=== PATIENT | male | born 1965 ===

== ENCOUNTER 2018-10-11 19:40 | Inpatient (IN) | payer MEDICAID, OTHER ==
[2018-10-11 19:44] VITALS: BMI 20.9
[2018-10-11 19:55] VITALS: O2SAT 100
[2018-10-11] MEDS ORDERED: Oxycodone/Acetaminophen 5/325 mg Tab PO STA (20:11)
--- NOTE | 2018-10-11 20:11 | ED PDOC ---
Arrival/HPI - General Chief Complaint: Psychiatric Evaluation Historian: Patient - History of Present Illness Narrative History of Present Illness (Text): 10/11/18 20:07 53 y/o male, pmh including htn/hld/dm/stroke, lt. side paralysis, nkda, c/o feeling depress since he had a stroke 07/2018. Pt. stated that he has chronic lt. shoulder pain from the previous injury, on and off for months. Pt has been feeling very depress with suicidal ideation for months since the stroke, no homocidal ideation, no auditory or visual hallucination, no other medical or psychological complaints. Past Medical History - Provider Review Nursing Documentation Reviewed: Yes - Infectious Disease Hx of Infectious Diseases: None - Cardiac Hx Atrial Fibrillation: No - Pulmonary Hx Respiratory Disorders: Yes (SMOKES PPD) Hx Pneumonia: Yes (2006) - Neurological HX Cerebrovascular Accident: Yes (LEFT SIDED WEAKNESS,FACIAL DROOP 07-31-18) - HEENT Hx HEENT Disorder: No (METAL SHRAPNEL REMOVED FROM EYE) - Renal Hx Renal Disorder: No - Endocrine/Metabolic Hx Diabetes Mellitus Type 2: Yes - Hematological/Oncological Hx Blood Disorders: No - Integumentary Hx Dermatological Disorder: No - Musculoskeletal/Rheumatological Hx Musculoskeletal Disorders: No Hx Falls: Yes (TODAY 07-31-18) Hx Fractures: Yes (RIB FX,LEFT WRIST FX-JOB RELATED) - Gastrointestinal Hx Gastrointestinal Disorders: No - Genitourinary/Gynecological Hx Genitourinary Disorders: No - Psychiatric Hx Psychophysiologic Disorder: No Hx Substance Use: No - Anesthesia Hx Anesthesia: No Family/Social History - Physician Review Nursing Documentation Reviewed: Yes Family/Social History: Unknown Family HX Smoking Status: Current Some Days Smoker Hx Alcohol Use: No Hx Substance Use: No Allergies/Home Meds Allergies/Adverse Reactions: Allergies No Known Allergies Allergy (Verified 10/12/18 00:32) Review of Systems - Review of Systems Constitutional: absent: Fatigue, Fevers Eyes: absent: Vision Changes ENT: absent: Hearing Changes Respiratory: absent: SOB, Cough Cardiovascular: absent: Chest Pain Gastrointestinal: absent: Abdominal Pain, Nausea, Vomiting Musculoskeletal: absent: Arthralgias, Back Pain Skin: absent: Rash, Pruritis Psychiatric: Depression, Suicidal Ideation. absent: Anxiety Physical Exam Vital Signs Reviewed: Yes Vital Signs Temp Pulse Resp BP Pulse Ox 10/11/18 19:54 98.1 F 75 18 138/80 100 Temperature: Afebrile Blood Pressure: Normal Pulse: Regular Respiratory Rate: Normal Appearance: Positive for: Well-Appearing, Non-Toxic, Comfortable Pain Distress: Moderate Mental Status: Positive for: Alert and Oriented X 3 - Systems Exam Head: Present: Atraumatic, Normocephalic Pupils: Present: PERRL Extroacular Muscles: Present: EOMI Conjunctiva: Present: Normal Mouth: Present: Moist Mucous Membranes Neck: Present: Normal Range of Motion Respiratory/Chest: Present: Clear to Auscultation, Good Air Exchange. No: Respiratory Distress, Accessory Muscle Use Cardiovascular: Present: Regular Rate and Rhythm, Normal S1, S2. No: Murmurs Abdomen: No: Tenderness, Distention, Peritoneal Signs Back: Present: Normal Inspection Upper Extremity: Present: Normal Inspection, Other (Lt. shoulder: no deformity, mild +ttp on the lt. anterior shoulder joint, no swelling, limited ROM due to the lt. paralysis from previous stroke, sensation intact, motor 5/5, +radial pulse, capillary refill < 2 seconds, neurovascular intact. ). No: Cyanosis, Edema Lower Extremity: Present: Normal Inspection. No: Edema Neurological: Present: GCS=15, CN II-XII Intact, Speech Normal, Memory Normal, Other (Lt. side paralysis. ) Skin: Present: Warm, Dry, Normal Color. No: Rashes Psychiatric: Present: Alert, Oriented x 3, Normal Insight, Normal Concentration, Depressed Mood, Suicidal Ideation Medical Decision Making ED Course and Treatment: 10/11/18 20:14 -Labs -ekg -xrays -percocet -one on one -Observe and reassess 10/11/18 21:36 -EKG: NSR @ 62 BPM, no ST elevation or depression, no T wave inversion. -Chest xray: ER wet read: no active disease -lt. shoulder xray: ER wet read: no fracture or dislocation. -Labs show no acute findings, hypgelycemia 200s -alcohol/salicylate/acetaminophen: within romal limit -UA show no UTI -UDS show no drug abuse -Pt. feels well, pain controlled, -PES paged -Pt. is medically clear for psychiatric evaluation. 10/11/18 22:09 -Pt. is evaluated by the PES, evaluated the patient and recommend admission for the patient. - RAD Interpretation Radiology Orders: 10/11/18 20:03 CHEST PORTABLE [RAD] Stat -Chest xray: no active pulmonary disease -lt. shoulder xray: no fracture or dislocation Experimental Mechanic Electrical: Radiologist - EKG Interpretation EKG Interpretation (Text): 10/11/18 20:44 NSR @ 62 BPM, no ST elevation or depression, no T wave inversion. Interpreted by ED Physician: Yes Type: 12 lead EKG - PA / HOME HEALTH SPECIALIST / Resident Statement MD/DO has reviewed & agrees with the documentation as recorded. Disposition/Present on Arrival - Present on Arrival Any Indicators Present on Arrival: No History of DVT/PE: No History of Uncontrolled Diabetes: No Urinary Catheter: No History of Decub. Ulcer: No History Surgical Site Infection Following: None - Disposition Have Diagnosis and Disposition been Completed?: Yes Diagnosis: Depression, Suicidal ideation Disposition: HOSPITALIZED Disposition Time: 21:37 Patient Plan: Admission Patient Problems: Current Active Problems Problem Status Onset Depression Acute Suicidal ideation Acute Condition: STABLE
[2018-10-11 20:24] LABS: URINE BILIRUBIN NEGATIVE (NEGATIVE); URINE BLOOD NEGATIVE (NEGATIVE); URINE GLUCOSE (UA) 500 mg/dL (NEGATIVE); URINE LEUKOCYTE ESTERASE NEGATIVE Leu/uL (NEGATIVE); URINE PROTEIN NEGATIVE mg/dL (<30 mg/dL); URINE UROBILINOGEN 0.2 E.U./dL (<1 E.U./dL)
[2018-10-11 20:25] LABS: URINE APPEARANCE CLEAR (CLEAR); URINE COLOR YELLOW (YELLOW)
[2018-10-11 20:34] LABS: BASO # 0.04 K/mm3 (0.0-2.0); BASO % 0.4 % (0.0-3.0); EOS # 0.2 (0.0-0.7); EOS % 2.1 % (1.5-5.0); GRAN # 6.22 (1.4-6.5); GRAN % 58.2 % (50.0-68.0); HEMOGLOBIN 12.6 g/dL (14.0-18.0); LYMPH # 3.5 (1.2-3.4); LYMPH % 32.2 % (22.0-35.0); MEAN CELL VOLUME 83.5 fl (80.0-105.0); MEAN CORPUSCULAR HGB CONC 32.4 g/dl (31.0-37.0); MEAN PLATELET VOLUME 9.7 fl (7.0-11.0); MONO # 0.8 (0.1-0.6); MONO % 7.1 % (1.0-6.0); RBC 4.66 10^6/uL (3.5-6.1); RED CELL DISTRIBUTION WIDTH 15.7 % (11.5-14.5); WHITE BLOOD COUNT 10.7 10^3/uL (4.5-11.0)
[2018-10-11 20:45] LABS: ACETAMINOPHEN < 10.0 ug/ml (10.0-20.0); SALICYLATE < 1 mg/dL (2.0-20.0)
[2018-10-11 20:46] LABS: ALB/GLOB RATIO 1.4 (1.1-1.8); ALBUMIN 4.3 g/dL (3.0-4.8); ALT/SGPT 43 U/L (7-56); AST/SGOT 49 U/L (17-59); BLOOD UREA NITROGEN 18 mg/dL (7-21); CALCIUM 9.9 mg/dL (8.4-10.5); GFR NON-AFRICAN AMERICAN > 60
[2018-10-11 20:52] LABS: BARBITURATES, UR NEGATIVE (NEGATIVE); BENZODIAZEPINES, UR NEGATIVE (NEGATIVE); OPIATES, UR NEGATIVE (NEGATIVE); PHENCYCLIDINE, UR NEGATIVE (NEGATIVE)
[2018-10-12] MEDS ORDERED: Magnesium Hydroxide Susp 30 ml UD PO PRN (00:50)
[2018-10-12] MEDS ORDERED: Alum-Mag Hydrox-Simethicone Susp (30 mL) PO PRN (00:50)
--- NOTE | 2018-10-12 01:32 | PCM.BM ---
<Aknita Ramos - Last Filed: 10/12/18 01:28> Treatment Plan Problems - Problems identified on initial assessmt High risk suicide Date Initiated: 10/12/18 Time Initiated: :29 Assessment reference: NA Status: Active ineffective coping Date Initiated: 10/12/18 Time Initiated: 01:29 Assessment reference: NA Status: Active Hopelessness/Helplessness Date Initiated: 10/12/18 Time Initiated: 01:30 Assessment reference: NA Status: Active Activity intolerence Date Initiated: 10/12/18 Time Initiated: 01:30 Assessment reference: NA Status: Active self care deficit Date Initiated: 10/12/18 Time Initiated: 01:31 Assessment reference: NA Status: Active Treatment assets and liabiliti Patient Assests: cooperative, educated, motivated, cognitively intact Patient Liabilities: physical pain, medical problems - Milieu Protocol Maintain good personal hygiene: daily Encourage regular showers, daily Remind patient to perform daily oral care, daily Assist patient to perform ADL's Maintain personal safety: daily Educate patient to report safety concerns to sta ff, daily Monitor environment for contraband/sharps Medication safety: Monitor for expected outcome, potential side effects: daily, Assess barriers to learning: daily, Assess readiness for medication education: daily Family Contact Family involvement: Family/SO is involved Family contact: Patient agrees to contact Discharge/Continuing Care - Education Needs Education Needs: Patient Medication, Patient Diagnosis/Disease Process, Patient Coping Skills, Patient Placement options, Patient Activities of Daily Living, Patient Pain, Patient Nutrition, Patient Uses of Medical Equipment, Patient Health Practices/Safety, Patient Personal Hygiene/Grooming, Patient Aftercare Safety Plan - Discharge Discharge Criteria: Tolerates medication w/o severe side effects, Free of Suicidal thoughts, Normal sleep pattern, Ability to care for self Discharge to:: Home <Savanah Galarza - Last Filed: 10/12/18 15:48> - Diagnosis (1) MDD (major depressive disorder) Status: Acute Interventions: 10/12/18 15:48 Psychoeducation Psychopharmacology/adjustment of medications as needed/ monitoring possible side effects Evaluate pt on daily basis Compliance with medications and follow up appointments Suicide and homicide risk assessment and prevention Relapse prevention Reduction of symptoms Improve functional status Family involvement As outpatient: cognitive behavioral therapy Medical follow-up Physical therapy follow-up Possible rehab <Emma Linn Y - Last Filed: 10/13/18 16:09> Family Contact Family involvement: Family/SO is involved Family contact: Patient agrees to contact Family contact name: Yara Alba(girlfriend) Family contacted how many times per week?: 2
[2018-10-12] MEDS: Pantoprazole 40 mg EC Tab PO SCH (06:44)
[2018-10-12 07:00] LABS: GLUCOSE,FASTING 254 mg/dL (65-110); HDL CHOLESTEROL 35 mg/dL (29-60)
[2018-10-12 07:13] LABS: LDL CHOLESTEROL 58 mg/dL (0-129)
--- NOTE | 2018-10-12 08:42 | RAD ---
Date of service: 10/11/2018 PROCEDURE: CHEST RADIOGRAPH, 1 VIEW HISTORY: medical clearance COMPARISON: 08/03/2018. FINDINGS: LUNGS: The lungs are well inflated and clear. PLEURA: No pneumothorax or pleural effusion. CARDIOVASCULAR: The heart is normal in size. No aortic atherosclerotic calcifications present. OSSEOUS STRUCTURES: Within normal limits for the patient's age. VISUALIZED UPPER ABDOMEN: Normal. OTHER FINDINGS: None. IMPRESSION: No active pulmonary disease.
[2018-10-12] MEDS: Valproic Acid 250 mg/5 ml UD Cup PO SCH ×2 (09:08→17:55)
[2018-10-12] MEDS: Enoxaparin 30 mg Syringe SC SCH (09:09)
--- NOTE | 2018-10-12 09:20 | RAD ---
Date of service: 10/11/2018 PROCEDURE: Radiographs of the left shoulder HISTORY: lt. shoulder pain, chronic COMPARISON: No prior. FINDINGS: BONES: Bone alignment and mineralization are normal. There is no acute displaced fracture or bone destruction. JOINTS: There is mild degenerative osteoarthrosis in the glenohumeral and acromioclavicular joints SOFT TISSUES: Normal. OTHER FINDINGS: None. IMPRESSION: No acute displaced fracture or dislocation.
--- NOTE | 2018-10-12 14:19 | CP.PCM.CON ---
<KeshawnTanya floreslui - Last Filed: 10/13/18 06:57> History of Present Illness - History of Present Illness History of Present Illness: Quintin Hearn, PGY1 Medicine Consult Note This is a 53 year old male with PMH of HTN, HLD, DM and CVA in 07/2018 with residual left sided weakness presenting to the hospital for depression and suicidal ideations. Medicine has been consulted for hypertension and diabetes. Per chart review, patient takes norvasc 5mg, metoprolol 12.5mg BID and lisinopril 10mg for HTN. He takes glipizide 10mg BID and levemir 10 units HS for DM. He states he is compliant with his medications but is unable to recall the medications names at this time upon questioning. He is unable to move the left upper extremity from the stroke and has minimal movement of the left lower extre mity. He denies CP, SOB, fevers, headaches, nausea, vomiting, abdominal pain, diarrhea, constipation and swelling. 12 point ROS noted here, otherwise unremarkable. PMH: HTN, HLD, DM and CVA in 07/2018 with residual left sided weakness Meds: as per DEC SH: denies drinking and drug use, smokes cigarettes infrequently Sx: bladder surgery 2 years ago All: NKDA FH: denies Past Patient History - Infectious Disease Hx of Infectious Diseases: None - Past Social History Smoking Status: Current Some Days Smoker - CARDIAC Hx Atrial Fibrillation: No Hx Hypertension: Yes - PULMONARY Hx Respiratory Disorders: Yes (SMOKES PPD) Hx Pneumonia: Yes (2006) - NEUROLOGICAL HX Cerebrovascular Accident: Yes (LEFT SIDED WEAKNESS,FACIAL DROOP 07-31-18) - HEENT Hx HEENT Problems: No (METAL SHRAPNEL REMOVED FROM EYE) - RENAL Hx Chronic Kidney Disease: No - ENDOCRINE/METABOLIC Hx Diabetes Mellitus Type 2: Yes - HEMATOLOGICAL/ONCOLOGICAL Hx Blood Disorders: No - INTEGUMENTARY Hx Dermatological Problems: No - MUSCULOSKELETAL/RHEUMATOLOGICAL Hx Musculoskeletal Disorders: No Hx Falls: Yes (TODAY 07-31-18) Hx Fractures: Yes (RIB FX,LEFT WRIST FX-JOB RELATED) - GASTROINTESTINAL Hx Gastrointestinal Disorders: No - GENITOURINARY/GYNECOLOGICAL Hx Genitourinary Disorders: No - PSYCHIATRIC Hx Substance Use: No - SURGICAL HISTORY Hx Surgeries: Yes (BLADDER SX, METAL SHRAPNEL REMOVED FROM EYE) - ANESTHESIA Hx Anesthesia: No Meds Allergies/Adverse Reactions: Allergies Allergy/AdvReac Type Severity Reaction Status Date / Time No Known Allergies Allergy Verified 10/12/18 00:32 - Medications Medications: Current Medications Acetaminophen (Tylenol 325mg Tab) 650 mg PO Q6H PRN PRN Reason: Pain, moderate (4-7) Last Admin: 10/12/18 09:25 Dose: 650 mg Al Hydrox/Mg Hydrox/Simethicone (Maalox Plus 30 Ml) 30 ml PO DAILY PRN PRN Reason: Upset Stomach Amlodipine Besylate (Norvasc) 5 mg PO DAILY [facility] Last Admin: 10/12/18 09:08 Dose: 5 mg Aspirin (Ecotrin) 81 mg PO DAILY [facility] Last Admin: 10/12/18 09:04 Dose: 81 mg Atorvastatin Calcium (Lipitor) 40 mg PO DIN [facility] Clopidogrel Bisulfate (Plavix) 75 mg PO DAILY [facility] Last Admin: 10/12/18 09:04 Dose: 75 mg Enoxaparin Sodium (Lovenox) 30 mg SC DAILY [facility]; Protocol Last Admin: 10/12/18 09:09 Dose: 30 mg Glipizide (Glucotrol) 10 mg PO 0730,1630 [facility] Last Admin: 10/12/18 09:09 Dose: 10 mg Insulin Detemir (Levemir) 10 unit SC [facility] Lisinopril (Zestril) 10 mg PO DAILY [facility] Last Admin: 10/12/18 09:08 Dose: 10 mg Magnesium Hydroxide (Milk Of Magnesia) 30 ml PO DAILY PRN PRN Reason: Constipation Metoprolol Tartrate (Lopressor) 12.5 mg PO BID [facility] Last Admin: 10/12/18 09:04 Dose: 12.5 mg Pantoprazole Sodium (Protonix Ec Tab) 40 mg PO 0600 [facility] Last Admin: 10/12/18 06:44 Dose: 40 mg Valproate Sodium (Depakene Oral Soln) 250 mg PO BID [facility] Last Admin: 10/12/18 09:08 Dose: 250 mg Physical Exam - Constitutional Appears: No Acute Distress - Head Exam Head Exam: ATRAUMATIC, NORMAL INSPECTION - Eye Exam Eye Exam: EOMI Pupil Exam: PERRL - ENT Exam ENT Exam: Mucous Membranes Moist - Respiratory Exam Respiratory Exam: Clear to Auscultation Bilateral. absent: Accessory Muscle Use, Wheezes, Respiratory Distress - Cardiovascular Exam Cardiovascular Exam: REGULAR RHYTHM, +S1, +S2 - GI/Abdominal Exam GI & Abdominal Exam: Normal Bowel Sounds, Soft. absent: Firm, Guarding, Tenderness - Extremities Exam Extremities exam: Positive for: pedal pulses present. Negative for: calf tenderness Additional comments: LLE: 3/5 muscle strength. LUE: 0/5 muscle strength RLE and RUE 5/5 muscle strength. - Back Exam Back exam: NORMAL INSPECTION - Neurological Exam Neurological exam: Alert, Oriented x3 - Skin Skin Exam: Normal Color, Warm Results - Vital Signs Recent Vital Signs: Last Vital Signs Temp 97.8 F 10/12/18 07:26 Pulse 87 10/12/18 09:08 Resp 20 10/12/18 07:26 BP 109/66 10/12/18 09:08 Pulse Ox 100 10/11/18 23:17 - Labs Result Diagrams: 10/11/18 20:28 10/11/18 20:28 Labs: Laboratory Results - last 24 hr 10/11/18 10/11/18 10/11/18 20:19 20:19 20:28 WBC RBC Hgb Hct MCV MCH MCHC RDW Plt Count MPV Gran % Lymph % (Auto) Henry % (Auto) Eos % (Auto) Baso % (Auto) Gran # Lymph # (Auto) Henry # (Auto) Eos # (Auto) Baso # (Auto) Sodium Potassium Chloride Carbon Dioxide Anion Gap BUN Creatinine Est GFR ( Amer) Est GFR (Non-Af Amer) POC Glucose (mg/dL) Random Glucose Fasting Glucose Calcium Total Bilirubin AST ALT Alkaline Phosphatase Total Protein Albumin Globulin Albumin/Globulin Ratio Triglycerides Cholesterol LDL Cholesterol Direct HDL Cholesterol TSH 3rd Generation Urine Color Yellow Urine Appearance Clear Urine pH 6.0 Ur Specific Sherman >= 1.030 Urine Protein Negative Urine Glucose (UA) 500 H Urine Ketones Negative Urine Blood Negative Urine Nitrate Negative Urine Bilirubin Negative Urine Urobilinogen 0.2 Ur Leukocyte Esterase Negative Salicylates < 1 L Urine Opiates Screen Negative Urine Methadone Screen Negative Acetaminophen < 10.0 L Ur Barbiturates Screen Negative Ur Phencyclidine Scrn Negative Ur Amphetamines Screen Negative U Benzodiazepines Scrn Negative U Oth Cocaine Metabols Negative U Cannabinoids Screen Negative Alcohol, Quantitative 10/11/18 10/11/18 10/11/18 20:28 20:28 20:28 WBC 10.7 RBC 4.66 Hgb 12.6 L Hct 38.9 L MCV 83.5 MCH 27.0 MCHC 32.4 RDW 15.7 H Plt Count 284 MPV 9.7 Gran % 58.2 Lymph % (Auto) 32.2 Henry % (Auto) 7.1 H Eos % (Auto) 2.1 Baso % (Auto) 0.4 Gran # 6.22 Lymph # (Auto) 3.5 H Henry # (Auto) 0.8 H Eos # (Auto) 0.2 Baso # (Auto) 0.04 Sodium 138 Potassium 3.9 Chloride 102 Carbon Dioxide 25 Anion Gap 15 BUN 18 Creatinine 0.6 L Est GFR ( Amer) > 60 Est GFR (Non-Af Amer) > 60 POC Glucose (mg/dL) Random Glucose 233 H Fasting Glucose Calcium 9.9 Total Bilirubin 0.5 AST 49 ALT 43 Alkaline Phosphatase 76 Total Protein 7.4 Albumin 4.3 Globulin 3.0 Albumin/Globulin Ratio 1.4 Triglycerides Cholesterol LDL Cholesterol Direct HDL Cholesterol TSH 3rd Generation Urine Color Urine Appearance Urine pH Ur Specific Sherman Urine Protein Urine Glucose (UA) Urine Ketones Urine Blood Urine Nitrate Urine Bilirubin Urine Urobilinogen Ur Leukocyte Esterase Salicylates Urine Opiates Screen Urine Methadone Screen Acetaminophen Ur Barbiturates Screen Ur Phencyclidine Scrn Ur Amphetamines Screen U Benzodiazepines Scrn U Oth Cocaine Metabols U Cannabinoids Screen Alcohol, Quantitative < 10 10/12/18 10/12/18 10/12/18 01:06 06:15 06:15 WBC RBC Hgb Hct MCV MCH MCHC RDW Plt Count MPV Gran % Lymph % (Auto) Henry % (Auto) Eos % (Auto) Baso % (Auto) Gran # Lymph # (Auto) Henry # (Auto) Eos # (Auto) Baso # (Auto) Sodium Potassium Chloride Carbon Dioxide Anion Gap BUN Creatinine Est GFR ( Amer) Est GFR (Non-Af Amer) POC Glucose (mg/dL) 232 H Random Glucose Fasting Glucose 254 H Calcium Total Bilirubin AST ALT Alkaline Phosphatase Total Protein Albumin Globulin Albumin/Globulin Ratio Triglycerides 154 Cholesterol 132 LDL Cholesterol Direct 58 HDL Cholesterol 35 TSH 3rd Generation 3.33 Urine Color Urine Appearance Urine pH Ur Specific Sherman Urine Protein Urine Glucose (UA) Urine Ketones Urine Blood Urine Nitrate Urine Bilirubin Urine Urobilinogen Ur Leukocyte Esterase Salicylates Urine Opiates Screen Urine Methadone Screen Acetaminophen Ur Barbiturates Screen Ur Phencyclidine Scrn Ur Amphetamines Screen U Benzodiazepines Scrn U Oth Cocaine Metabols U Cannabinoids Screen Alcohol, Quantitative 10/12/18 07:19 WBC RBC Hgb Hct MCV MCH MCHC RDW Plt Count MPV Gran % Lymph % (Auto) Henry % (Auto) Eos % (Auto) Baso % (Auto) Gran # Lymph # (Auto) Henry # (Auto) Eos # (Auto) Baso # (Auto) Sodium Potassium Chloride Carbon Dioxide Anion Gap BUN Creatinine Est GFR ( Amer) Est GFR (Non-Af Amer) POC Glucose (mg/dL) 235 H Random Glucose Fasting Glucose Calcium Total Bilirubin AST ALT Alkaline Phosphatase Total Protein Albumin Globulin Albumin/Globulin Ratio Triglycerides Cholesterol LDL Cholesterol Direct HDL Cholesterol TSH 3rd Generation Urine Color Urine Appearance Urine pH Ur Specific Sherman Urine Protein Urine Glucose (UA) Urine Ketones Urine Blood Urine Nitrate Urine Bilirubin Urine Urobilinogen Ur Leukocyte Esterase Salicylates Urine Opiates Screen Urine Methadone Screen Acetaminophen Ur Barbiturates Screen Ur Phencyclidine Scrn Ur Amphetamines Screen U Benzodiazepines Scrn U Oth Cocaine Metabols U Cannabinoids Screen Alcohol, Quantitative Assessment & Plan - Assessment and Plan (Free Text) Assessment: This is a 53 year old male with PMH of HTN, HLD, DM and CVA in 07/2018 with residual left sided weakness presenting to the hospital for depression and suicidal ideations. Medicine has been consulted for hypertension and diabetes. Plan: Hx of DM -continue glipizide 10mg BID -continue levemir 10mg HS -will consider increasing levemir to 15mg HS if glucose continues to trend high -previous A1c 11.9% Hx of HTN -blood pressure currently controlled -continue lopressor 12.5mg BID, lisinopril 10mg and norvasc 5mg Hx of CVA -continue ASA 81, plavis 75mg, lipitor 40mg We will sign off the case at this time. Please reconsult as needed. Thank you for the consultation. Patient seen and case discussed with attending, Dr. Santana <Sam Santana - Last Filed: 10/17/18 17:17> Meds - Medications Medications: Current Medications Acetaminophen (Tylenol 325mg Tab) 650 mg PO Q6H PRN PRN Reason: Pain, moderate (4-7) Last Admin: 01/11/19 17:21 Dose: 650 mg Al Hydrox/Mg Hydrox/Simethicone (Maalox Plus 30 Ml) 30 ml PO DAILY PRN PRN Reason: Upset Stomach Amitriptyline HCl (Elavil) 50 mg PO HS [facility] Last Admin: 10/16/18 22:11 Dose: 50 mg Amlodipine Besylate (Norvasc) 5 mg PO DAILY [facility] Last Admin: 10/17/18 08:39 Dose: 5 mg Aspirin (Ecotrin) 81 mg PO DAILY [facility] Last Admin: 10/17/18 08:39 Dose: 81 mg Atorvastatin Calcium (Lipitor) 40 mg PO DIN [facility] Last Admin: 10/17/18 16:32 Dose: 40 mg Clopidogrel Bisulfate (Plavix) 75 mg PO DAILY [facility] Last Admin: 10/17/18 08:39 Dose: 75 mg Enoxaparin Sodium (Lovenox) 30 mg SC DAILY [facility]; Protocol Last Admin: 10/17/18 08:39 Dose: 30 mg Glipizide (Glucotrol) 10 mg PO 0730,1630 [facility] Last Admin: 10/17/18 16:32 Dose: 10 mg Insulin Detemir (Levemir) 10 unit SC [facility] Last Admin: 10/16/18 22:16 Dose: 10 units Insulin Human Regular (Humulin R Med) 0 units SC [facility]; Protocol Last Admin: 10/17/18 16:34 Dose: 3 unit Lisinopril (Zestril) 10 mg PO DAILY [facility] Last Admin: 10/17/18 08:38 Dose: 10 mg Magnesium Hydroxide (Milk Of Magnesia) 30 ml PO DAILY PRN PRN Reason: Constipation Metoprolol Tartrate (Lopressor) 12.5 mg PO BID [facility] Last Admin: 10/17/18 16:32 Dose: 12.5 mg Pantoprazole Sodium (Protonix Ec Tab) 40 mg PO 0600 [facility] Last Admin: 10/17/18 06:05 Dose: 40 mg Valproate Sodium (Depakene Oral Soln) 250 mg PO BID [facility] Last Admin: 10/17/18 16:32 Dose: 250 mg Results - Vital Signs Recent Vital Signs: Last Vital Signs Temp 98.0 F 10/17/18 07:22 Pulse 89 10/17/18 08:39 Resp 20 10/17/18 07:22 BP 107/69 10/17/18 08:39 Pulse Ox 100 10/11/18 23:17 - Labs Result Diagrams: 10/11/18 20:28 10/11/18 20:28 Labs: Laboratory Results - last 24 hr 10/16/18 10/17/18 10/17/18 21:48 08:07 11:11 POC Glucose (mg/dL) 236 H 136 H 249 H 10/17/18 15:33 POC Glucose (mg/dL) 234 H Attending/Attestation - Attestation I have personally seen and examined this patient.: Yes I have fully participated in the care of the patient.: Yes I have reviewed all pertinent clinical information: Yes Notes (Text): 10/17/18 17:17 Medical record note made by the resident after discussion with my direction and input after the patient was personally seen and examined by me. I have reviewed the chart and agree that the record accurately reflects by personal performance of the history, physical exam, data review, and medical decision-making, in the course for the patient. I have also personally directed the plan of care.
--- NOTE | 2018-10-12 15:48 | PCM.PSYCH ---
Initial Psychiatric Evaluation - Initial Psychiatric Evaluation Type of Admission: Voluntary Legal Status: Capacity (pt has a capacity to sign consent for treatment) Chief Complaint (in patient's own words): "I am very depressed, I wanted to the end of my life, I had a plan to shoot myself, I do not have any access to guns though" Patient's Reaction to Hospitalization: pt was admitted for evaluation of depression, possible suicidal ideation with the plan to shot himself. see ED notes for more detailed information. History of Present Illness and Precipitating Events: Bindu the patient is a 53-year-old male, recent stroke in July 2018, patient has paralysis of the left side of his body, patient is wheelchair-bound, patient was brought in by his girlfriend after patient was verbalizing thoughts of killing himself by gunshot. Obviously patient required further evaluation and stabilization and medications initiation and titration. Patient was seen and examined today at the treatment team meeting, patient presented with poor personal hygiene, poor ADLs, ambulates with a wheelchair. Notes reviewed, discussed with treatment team, emergency room as well as PES notes reviewed. Patient reported after a stroke she was feeling "very depressed and traumatized", patient reported that she went to [facility] rehab but "I was kicked out from there because of my insurance", patient reported that he is feeling depressed, hopeless, helpless, worthless, guilt, patient reported for past week she was feeling suicidal, hopeless, yesterday sara watson shared his thoughts with his girlfriend and she brought patient to the hospital. Patient reported that he was traumatized by his stroke, patient has flashbacks, nightmares and reliving of the situation. Patient denied being abused, denied physical/emotional/sexual abuse. Patient denies using drugs, denies smoking, denied drinking alcohol, patient reported that he smoked prior to the stroke. Patient reported hearing his mother's voice, patient reported that this voice is "calming me", denied any command type hallucinations, denied seeing things, denied paranoid ideations patient does not appear to be psychotic. As per nursing staff patient has episodes of being disrespectful, very angry, irritable, and ramires, at the same time patient does not have any aggression or agitation no psychotic symptoms. Patient stated to RN that he was going to ask a friend to lend him his gun so he can shoot himself. Patient was educated about treatment plan, patient agreed to participate. Medical history: Stroke July 2018, with residual left-sided paralysis, history of hyperlipidemia, diabetes, hypertension. Past psychiatric history: Denied Family history: Patient father killed himself by gunshot at age of 35, patient is not sure if his father had history of mental illness. Social history: Patient lives with his girlfriend, has one child. 10/11/18 20:28 10/11/18 20:28 Lab Results 10/12/18 07:19: POC Glucose (mg/dL) 235 H 10/12/18 06:15: TSH 3rd Generation 3.33 10/12/18 06:15: Fasting Glucose 254 H, Triglycerides 154, Cholesterol 132, LDL Cholesterol Direct 58, HDL Cholesterol 35 10/12/18 01:06: POC Glucose (mg/dL) 232 H 10/11/18 20:28: WBC 10.7, RBC 4.66, Hgb 12.6 L, Hct 38.9 L, MCV 83.5, MCH 27.0, MCHC 32.4, RDW 15.7 H, Plt Count 284, MPV 9.7, Gran % 58.2, Lymph % (Auto) 32.2, [place] % (Auto) 7.1 H, Eos % (Auto) 2.1, Baso % (Auto) 0.4, Gran # 6.22, Lymph # (Auto) 3.5 H, [place] # (Auto) 0.8 H, Eos # (Auto) 0.2, Baso # (Auto) 0.04 10/11/18 20:28: Alcohol, Quantitative < 10 10/11/18 20:28: Sodium 138, Potassium 3.9, Chloride 102, Carbon Dioxide 25, Anion Gap 15, BUN 18, Creatinine 0.6 L, Est GFR ( Amer) > 60, Est GFR (Non-Af Amer) > 60, Random Glucose 233 H, Calcium 9.9, Total Bilirubin 0.5, AST 49, ALT 43, Alkaline Phosphatase 76, Total Protein 7.4, Albumin 4.3, Globulin 3.0, Albumin/Globulin Ratio 1.4 10/11/18 20:28: Salicylates < 1 L, Acetaminophen < 10.0 L 10/11/18 20:19: Urine Color Yellow, Urine Appearance Clear, Urine pH 6.0, Ur Specific [place] >= 1.030, Urine Protein Negative, Urine Glucose (UA) 500 H, Urine Ketones Negative, Urine Blood Negative, Urine Nitrate Negative, Urine Bilirubin Negative, Urine Urobilinogen 0.2, Ur Leukocyte Esterase Negative 10/11/18 20:19: Urine Opiates Screen Negative, Urine Methadone Screen Negative, Ur Barbiturates Screen Negative, Ur Phencyclidine Scrn Negative, Ur Amphetamines Screen Negative, U Benzodiazepines Scrn Negative, U Oth Cocaine Metabols Negative, U Cannabinoids Screen Negative Vital Signs Temp Pulse Pulse Resp BP Pulse Ox 10/12/18 09:08 87 109/66 10/12/18 09:04 84 109/66 10/12/18 07:26 97.8 F 84 20 109/66 10/12/18 01:36 65 18 10/11/18 23:17 80 18 123/56 L 100 10/11/18 21:14 61 18 133/72 100 10/11/18 19:54 98.1 F 75 18 138/80 100 The patient failed the outpatient lower level of care: Yes Current Medications: Active Medications Generic Name Dose Route Start Last Admin Trade Name Freq PRN Reason Stop Dose Admin Acetaminophen 650 mg 10/12/18 00:50 10/12/18 02:47 Tylenol 325mg Tab PO 650 mg Q6H PRN Administration Pain, moderate (4-7) Al Hydrox/Mg Hydrox/Simethicone 30 ml 10/12/18 00:50 Maalox Plus 30 Ml PO DAILY PRN Upset Stomach Amlodipine Besylate 5 mg 10/12/18 08:00 Norvasc PO DAILY [facility] Aspirin 81 mg 10/12/18 08:00 Ecotrin PO DAILY [facility] Atorvastatin Calcium 40 mg 10/12/18 17:00 Lipitor PO DIN [facility] Clopidogrel Bisulfate 75 mg 10/12/18 08:00 Plavix PO DAILY [facility] Enoxaparin Sodium 30 mg 10/12/18 08:00 Lovenox SC DAILY [facility] Protocol Glipizide 10 mg 10/12/18 07:30 Glucotrol PO 0730,1630 [facility] Insulin Detemir 10 unit 10/12/18 22:00 Levemir SC HS [facility] Lisinopril 10 mg 10/12/18 08:00 Zestril PO DAILY [facility] Magnesium Hydroxide 30 ml 10/12/18 00:50 Milk Of Magnesia PO DAILY PRN Constipation Metoprolol Tartrate 12.5 mg 10/12/18 08:00 Lopressor PO BID [facility] Pantoprazole Sodium 40 mg 10/12/18 06:00 10/12/18 06:44 Protonix Ec Tab PO 40 mg 0600 [facility]IP Administration Valproate Sodium 250 mg 10/12/18 08:00 Depakene Oral Soln PO BID SANDIP Present on Admission - Present on Admission Any Indicators Present on Admission: No Review of Systems - Review of Systems Systems not reviewed;Unavailable: Acuity of Condition - Constitutional Constitutional: As Per HPI - EENT Eyes: As Per HPI Ears: As Per HPI Nose/Mouth/Throat: As Per HPI - Cardiovascular Cardiovascular: As Per HPI - Respiratory Respiratory: As Per HPI - Gastrointestinal Gastrointestinal: As Per HPI - Genitourinary Genitourinary: As Per HPI - Reproductive: Male Reproductive:Male: As Per HPI - Musculoskeletal Musculoskeletal: As Per HPI - Integumentary Integumentary: As Per HPI - Neurological Neurological: As Per HPI - Psychiatric Psychiatric: As Per HPI - Endocrine Endocrine: As Per HPI - Hematologic/Lymphatic Hematologic: As Per HPI Past Patient History - Past Psychiatric History Previous Treatment History: None Prior Professional Help: See HPI Prior Psychiatric Treatment: See HPI At what hospital: See HPI Duration: See HPI Nature of Treatment: See HPI Explanation of prior treatment: See HPI - PSYCHIATRIC Hx Psychophysiologic Disorder: No Hx Substance Use: No - Infectious Disease Hx of Infectious Diseases: None - CARDIAC Hx Atrial Fibrillation: No Hx Hypertension: Yes - PULMONARY Hx Respiratory Disorders: Yes (SMOKES PPD) Hx Pneumonia: Yes (2006) - NEUROLOGICAL HX Cerebrovascular Accident: Yes (LEFT SIDED WEAKNESS,FACIAL DROOP 07-31-18) - HEENT Hx HEENT Problems: No (METAL SHRAPNEL REMOVED FROM EYE) - RENAL Hx Chronic Kidney Disease: No - ENDOCRINE/METABOLIC Hx Diabetes Mellitus Type 2: Yes - HEMATOLOGICAL/ONCOLOGICAL Hx Blood Disorders: No - INTEGUMENTARY Hx Dermatological Problems: No - MUSCULOSKELETAL/RHEUMATOLOGICAL Hx Musculoskeletal Disorders: No Hx Falls: Yes (TODAY 07-31-18) Hx Fractures: Yes (RIB FX,LEFT WRIST FX-JOB RELATED) - GASTROINTESTINAL Hx Gastrointestinal Disorders: No - GENITOURINARY/GYNECOLOGICAL Hx Genitourinary Disorders: No - SURGICAL HISTORY Hx Surgeries: Yes (BLADDER SX, METAL SHRAPNEL REMOVED FROM EYE) - ANESTHESIA Hx Anesthesia: No - Medical/Surgical History Reviewed & confirmed: by fl Meds Allergies/Adverse Reactions: Allergies Allergy/AdvReac Type Severity Reaction Status Date / Time No Known Allergies Allergy Verified 10/12/18 00:32 Mental Status Examination - Personal Presentation Personal Presentation: Looks older than stated age - Affect Affect: Flat - Motor Activity Motor Activity: Psychomotor Retardation - Reliability in Providing Information Reliability in Providing Information: Fair - Speech Speech: Organized - Mood Mood: Depressed, Anxious - Formal Thought Process Formal Thought Process: Hallucinations (Questionable voices) - Hallucinations/Delusions Hallucinations: Auditory - Obsessions/Compulsions Obsessions: None Compulsions: None - Cognitive Functions Orientation: Person, Place, Situation, Time Sensorium: Alert Abstract Thinking: [place] Estimate of Intelligence: Average Judgement: Intact, as evidence by: Insight regarding need for hospitalization - Risk Risk: Suicidal, Diminished functioning - Strength & Assets Inventory Strength & Assets Inventory: Family support, Cooperative - Limitations Limitations: Other (Multiple medical issues, recent stroke, suicidal ideation) Psychiatric Physical Exam - Physical Exam Reviewed and confirmed: Emergency Department Physical Exam Results - Vital Signs Recent Vital Signs: Last Vital Signs Temp 97.8 F 10/12/18 07:26 Pulse 84 10/12/18 07:26 Resp 20 10/12/18 07:26 BP 109/66 10/12/18 07:26 Pulse Ox 100 10/11/18 23:17 - Labs Result Diagrams: 10/11/18 20:28 10/11/18 20:28 Labs: Laboratory Results - last 24 hr 10/11/18 10/11/18 10/11/18 20:19 20:19 20:28 WBC RBC Hgb Hct MCV MCH MCHC RDW Plt Count MPV Gran % Lymph % (Auto) [place] % (Auto) Eos % (Auto) Baso % (Auto) Gran # Lymph # (Auto) [place] # (Auto) Eos # (Auto) Baso # (Auto) Sodium Potassium Chloride Carbon Dioxide Anion Gap BUN Creatinine Est GFR ( Amer) Est GFR (Non-Af Amer) POC Glucose (mg/dL) Random Glucose Fasting Glucose Calcium Total Bilirubin AST ALT Alkaline Phosphatase Total Protein Albumin Globulin Albumin/Globulin Ratio Triglycerides Cholesterol LDL Cholesterol Direct HDL Cholesterol TSH 3rd Generation Urine Color Yellow Urine Appearance Clear Urine pH 6.0 Ur Specific [place] >= 1.030 Urine Protein Negative Urine Glucose (UA) 500 H Urine Ketones Negative Urine Blood Negative Urine Nitrate Negative Urine Bilirubin Negative Urine Urobilinogen 0.2 Ur Leukocyte Esterase Negative Salicylates < 1 L Urine Opiates Screen Negative Urine Methadone Screen Negative Acetaminophen < 10.0 L Ur Barbiturates Screen Negative Ur Phencyclidine Scrn Negative Ur Amphetamines Screen Negative U Benzodiazepines Scrn Negative U Oth Cocaine Metabols Negative U Cannabinoids Screen Negative Alcohol, Quantitative 10/11/18 10/11/18 10/11/18 20:28 20:28 20:28 WBC 10.7 RBC 4.66 Hgb 12.6 L Hct 38.9 L MCV 83.5 MCH 27.0 MCHC 32.4 RDW 15.7 H Plt Count 284 MPV 9.7 Gran % 58.2 Lymph % (Auto) 32.2 [place] % (Auto) 7.1 H Eos % (Auto) 2.1 Baso % (Auto) 0.4 Gran # 6.22 Lymph # (Auto) 3.5 H [place] # (Auto) 0.8 H Eos # (Auto) 0.2 Baso # (Auto) 0.04 Sodium 138 Potassium 3.9 Chloride 102 Carbon Dioxide 25 Anion Gap 15 BUN 18 Creatinine 0.6 L Est GFR ( Amer) > 60 Est GFR (Non-Af Amer) > 60 POC Glucose (mg/dL) Random Glucose 233 H Fasting Glucose Calcium 9.9 Total Bilirubin 0.5 AST 49 ALT 43 Alkaline Phosphatase 76 Total Protein 7.4 Albumin 4.3 Globulin 3.0 Albumin/Globulin Ratio 1.4 Triglycerides Cholesterol LDL Cholesterol Direct HDL Cholesterol TSH 3rd Generation Urine Color Urine Appearance Urine pH Ur Specific [place] Urine Protein Urine Glucose (UA) Urine Ketones Urine Blood Urine Nitrate Urine Bilirubin Urine Urobilinogen Ur Leukocyte Esterase Salicylates Urine Opiates Screen Urine Methadone Screen Acetaminophen Ur Barbiturates Screen Ur Phencyclidine Scrn Ur Amphetamines Screen U Benzodiazepines Scrn U Oth Cocaine Metabols U Cannabinoids Screen Alcohol, Quantitative < 10 10/12/18 10/12/18 10/12/18 01:06 06:15 06:15 WBC RBC Hgb Hct MCV MCH MCHC RDW Plt Count MPV Gran % Lymph % (Auto) [place] % (Auto) Eos % (Auto) Baso % (Auto) Gran # Lymph # (Auto) [place] # (Auto) Eos # (Auto) Baso # (Auto) Sodium Potassium Chloride Carbon Dioxide Anion Gap BUN Creatinine Est GFR ( Amer) Est GFR (Non-Af Amer) POC Glucose (mg/dL) 232 H Random Glucose Fasting Glucose 254 H Calcium Total Bilirubin AST ALT Alkaline Phosphatase Total Protein Albumin Globulin Albumin/Globulin Ratio Triglycerides 154 Cholesterol 132 LDL Cholesterol Direct 58 HDL Cholesterol 35 TSH 3rd Generation 3.33 Urine Color Urine Appearance Urine pH Ur Specific [place] Urine Protein Urine Glucose (UA) Urine Ketones Urine Blood Urine Nitrate Urine Bilirubin Urine Urobilinogen Ur Leukocyte Esterase Salicylates Urine Opiates Screen Urine Methadone Screen Acetaminophen Ur Barbiturates Screen Ur Phencyclidine Scrn Ur Amphetamines Screen U Benzodiazepines Scrn U Oth Cocaine Metabols U Cannabinoids Screen Alcohol, Quantitative 10/12/18 07:19 WBC RBC Hgb Hct MCV MCH MCHC RDW Plt Count MPV Gran % Lymph % (Auto) [place] % (Auto) Eos % (Auto) Baso % (Auto) Gran # Lymph # (Auto) [place] # (Auto) Eos # (Auto) Baso # (Auto) Sodium Potassium Chloride Carbon Dioxide Anion Gap BUN Creatinine Est GFR ( Amer) Est GFR (Non-Af Amer) POC Glucose (mg/dL) 235 H Random Glucose Fasting Glucose Calcium Total Bilirubin AST ALT Alkaline Phosphatase Total Protein Albumin Globulin Albumin/Globulin Ratio Triglycerides Cholesterol LDL Cholesterol Direct HDL Cholesterol TSH 3rd Generation Urine Color Urine Appearance Urine pH Ur Specific [place] Urine Protein Urine Glucose (UA) Urine Ketones Urine Blood Urine Nitrate Urine Bilirubin Urine Urobilinogen Ur Leukocyte Esterase Salicylates Urine Opiates Screen Urine Methadone Screen Acetaminophen Ur Barbiturates Screen Ur Phencyclidine Scrn Ur Amphetamines Screen U Benzodiazepines Scrn U Oth Cocaine Metabols U Cannabinoids Screen Alcohol, Quantitative - EKG Data EKG Interpreted by: ER Physician DSM Plan - DSM 5 DSM 5 Diagnosis: Rule out major depressive disorder Rule out mood disorder due to general medical condition - Recommended/Plan of Treatment Treatment Recommendations and Plan of Treatment: Milieu/structure/supportive therapy Medical consult appreciated, see medical team note for more detailed info Physical therapy consult appreciated likely patient needs to go to the gym here in [facility] and subacute rehab after consultation for discharge plan and social issues Med management Amitriptyline was started for depression Depakote was started 250 mg twice a day for mood stabilization As needed medications Family involvement Follow up on labs Will monitor closely Pt was educated about risk/benefits and alternatives of medications, coping strategies (safety plan, suicide prevention), relapse prevention, importance of follow up with psychiatrist and therapist, stay away from drugs/alcohol/smoking Projected ELOS: 7 days Prognosis: Guarded Discharge Plan and Discharge Criteria: Pt will be not depressed or manic, will be more hopeful, will be not psychotic or anxious, will be not having thoughts of harming self or others, will be tolerating medications well, will not have major side effects, will be able to function, will not pose threat to self or others. - Tobacco Cessation Tobacco Use Status for the last 30 days: Non User Tobacco Use Treatment Practical Counseling Provided: No Tobacco Use Treatment FDA-Approved Cessation Medication Provided: No - Alcohol or Substance Abuse Does the patient have an Alcohol or Substance Abuse Disorder: No Initial Psych Certification - Initial Certification I certify that the inpatient psychiatric facility admission was medically necessary for either: Treatment which could reasonbly be expected to improve pt 's condition I estimate of hospitalization is necessary for proper treatment of the patient: 7 Unit of Time: Days My plans for post-hospital care for this patient are: Subacute rehab plus psychiatrist follow-up plus therapist follow-up
--- NOTE | 2018-10-12 20:14 | CARD ---
APPROVED REPORT Date of service: 10/11/2018 EKG Measurement Heart [id number] <Conclusion> Normal sinus rhythm Normal ECG
[2018-10-12] MEDS: Insulin Detemir 100 units/ml Vial (Levemir) SC SCH (21:42)
[2018-10-13] MEDS: Pantoprazole 40 mg EC Tab PO SCH (06:39)
[2018-10-13] MEDS: Valproic Acid 250 mg/5 ml UD Cup PO SCH ×2 (08:41→17:26)
[2018-10-13] MEDS: Enoxaparin 30 mg Syringe SC SCH (08:44)
--- NOTE | 2018-10-13 14:24 | PCM.PYCHPN ---
Psychiatric Progress Note - Psychiatric Progress Note Patient seen today, length of contact: 30 minutes Patient Chief Complaint: "I constantly thinking of suicide" Problems Identified/Issues Discussed: Suicide/ homicide prevention, past psychiatric h/o, current psychiatric symptoms, medical problems, risk/benefits and alternatives of medications, medications compliance, coping strategies, substance abuse h/o, relapse prevention, importance of follow up with psychiatrist and therapist, discharge plan. Medical Problems: Multiple medical issues please see medical team notes for more detailed information Diagnostic Results: 10/11/18 20:28 10/11/18 20:28 Lab Results 10/12/18 20:55: POC Glucose (mg/dL) 202 H 10/12/18 16:28: POC Glucose (mg/dL) 103 10/12/18 11:18: POC Glucose (mg/dL) 227 H 10/12/18 07:19: POC Glucose (mg/dL) 235 H 10/12/18 06:15: RPR Nonreactive 10/12/18 06:15: TSH 3rd Generation 3.33 10/12/18 06:15: Fasting Glucose 254 H, Triglycerides 154, Cholesterol 132, LDL Cholesterol Direct 58, HDL Cholesterol 35 10/12/18 01:06: POC Glucose (mg/dL) 232 H 10/11/18 20:28: WBC 10.7, RBC 4.66, Hgb 12.6 L, Hct 38.9 L, MCV 83.5, MCH 27.0, MCHC 32.4, RDW 15.7 H, Plt Count 284, MPV 9.7, Gran % 58.2, Lymph % (Auto) 32.2, [place] % (Auto) 7.1 H, Eos % (Auto) 2.1, Baso % (Auto) 0.4, Gran # 6.22, Lymph # (Auto) 3.5 H, [place] # (Auto) 0.8 H, Eos # (Auto) 0.2, Baso # (Auto) 0.04 10/11/18 20:28: Alcohol, Quantitative < 10 10/11/18 20:28: Sodium 138, Potassium 3.9, Chloride 102, Carbon Dioxide 25, Anion Gap 15, BUN 18, Creatinine 0.6 L, Est GFR ( Amer) > 60, Est GFR (Non-Af Amer) > 60, Random Glucose 233 H, Calcium 9.9, Total Bilirubin 0.5, AST 49, ALT 43, Alkaline Phosphatase 76, Total Protein 7.4, Albumin 4.3, Globulin 3.0, Albumin/Globulin Ratio 1.4 10/11/18 20:28: Salicylates < 1 L, Acetaminophen < 10.0 L 10/11/18 20:19: Urine Color Yellow, Urine Appearance Clear, Urine pH 6.0, Ur Specific [place] >= 1.030, Urine Protein Negative, Urine Glucose (UA) 500 H, Urine Ketones Negative, Urine Blood Negative, Urine Nitrate Negative, Urine Bilirubin Negative, Urine Urobilinogen 0.2, Ur Leukocyte Esterase Negative 10/11/18 20:19: Urine Opiates Screen Negative, Urine Methadone Screen Negative, Ur Barbiturates Screen Negative, Ur Phencyclidine Scrn Negative, Ur Amphetamines Screen Negative, U Benzodiazepines Scrn Negative, U Oth Cocaine Metabols Negative, U Cannabinoids Screen Negative Vital Signs Temp Pulse Pulse Resp BP Pulse Ox 10/13/18 08:43 63 120/71 10/13/18 08:42 63 120/71 10/13/18 07:08 98.0 F 63 20 120/71 10/12/18 17:55 60 107/70 10/12/18 16:00 60 107/70 10/12/18 09:08 87 109/66 10/12/18 09:04 84 109/66 10/12/18 07:26 97.8 F 84 20 109/66 10/12/18 01:36 65 18 10/11/18 23:17 80 18 123/56 L 100 10/11/18 21:14 61 18 133/72 100 10/11/18 19:54 98.1 F 75 18 138/80 100 DSM 5 Symptoms Update: Short the patient is a 53-year-old male, recent stroke in July 2018, patient has paralysis of the left side of his body, patient is wheelchair-bound, patient was brought in by his girlfriend after patient was verbalizing thoughts of killing himself by gunshot. Obviously patient required further evaluation and stabilization and medications initiation and titration. Patient was seen and examined today at the treatment team meeting, patient presented with poor personal hygiene, poor ADLs, ambulates with a wheelchair. Notes reviewed, discussed with treatment team, emergency room as well as PES notes reviewed. Patient presented to be depressed, disengaged, patient reported that "I constantly think of suicide", patient reported that she does she slept well last night, still reported to feel hopeless and helpless. As per staff patient preferred to be in his room, patient is disengaged, no agitation, no aggression. 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 So far patient tolerates medications well, no side effects observed or reported, aims 0, no EPS. Impression: DSM 5 Diagnosis: Rule out major depressive disorder Rule out mood disorder due to general medical condition Medication Change: Yes Medical Record Reviewed: Yes Consults ordered or reviewed: Medical consult appreciated Physical therapy consult appreciated Mental Status Examination - Cognitive Function Orientation: Person, Place, Situation, Time Memory: Intact Attention: Poor Concentration: Poor Association: WNL Fund of Knowledge: Poor - Mood Mood: Depressed, Anxious - Affect Affect: Flat - Formal Thought Process Formal Thought Process: Hallucinations (Questionable voices) - Suicidal Ideation Suicidal Ideation: Yes Plan: "I constantly feel suicidal, "patient denied any intent or plan of harming himself or others - Homicidal Ideation Homicidal Ideation: No Goal/Treatment Plan - Goal/Treatment Plan Need for Continued Stay: Remain at risks for inpatient hospitalization, Severe depression anxiety, Discharge may exacerbated symptoms, Severe functional impairment Progress Toward Problem(s) and Goals/Treatment Plan: Milieu/structure/supportive therapy Medical consult appreciated, see medical team note for more detailed info Physical therapy consult appreciated likely patient needs to go to the gym here in [facility] and subacute rehab after consultation for discharge plan and social issues Med management Amitriptyline was started for depression Depakote was started 250 mg twice a day for mood stabilization As needed medications Family involvement Follow up on labs Will monitor closely Pt was educated about risk/benefits and alternatives of medications, coping stra tegies (safety plan, suicide prevention), relapse prevention, importance of follow up with psychiatrist and therapist, stay away from drugs/alcohol/smoking Estimated Date of D/C: 10/20/18
[2018-10-13] MEDS: Insulin Detemir 100 units/ml Vial (Levemir) SC SCH (22:03)
[2018-10-14] MEDS: Valproic Acid 250 mg/5 ml UD Cup PO SCH ×2 (10:00→17:56)
[2018-10-14] MEDS: Enoxaparin 30 mg Syringe SC SCH (10:03)
[2018-10-14] MEDS: Pantoprazole 40 mg EC Tab PO SCH (10:04)
--- NOTE | 2018-10-14 14:45 | PCM.PYCHPN ---
Psychiatric Progress Note - Psychiatric Progress Note Patient seen today, length of contact: 30 minutes Patient Chief Complaint: "I constantly thinking of suicide" Problems Identified/Issues Discussed: Suicide/ homicide prevention, past psychiatric h/o, current psychiatric symptoms, medical problems, risk/benefits and alternatives of medications, medications compliance, coping strategies, substance abuse h/o, relapse prevention, importance of follow up with psychiatrist and therapist, discharge plan. Medical Problems: Multiple medical issues please see medical team notes for more detailed information Diagnostic Results: 10/11/18 20:28 10/11/18 20:28 Lab Results 10/12/18 20:55: POC Glucose (mg/dL) 202 H 10/12/18 16:28: POC Glucose (mg/dL) 103 10/12/18 11:18: POC Glucose (mg/dL) 227 H 10/12/18 07:19: POC Glucose (mg/dL) 235 H 10/12/18 06:15: RPR Nonreactive 10/12/18 06:15: TSH 3rd Generation 3.33 10/12/18 06:15: Fasting Glucose 254 H, Triglycerides 154, Cholesterol 132, LDL Cholesterol Direct 58, HDL Cholesterol 35 10/12/18 01:06: POC Glucose (mg/dL) 232 H 10/11/18 20:28: WBC 10.7, RBC 4.66, Hgb 12.6 L, Hct 38.9 L, MCV 83.5, MCH 27.0, MCHC 32.4, RDW 15.7 H, Plt Count 284, MPV 9.7, Gran % 58.2, Lymph % (Auto) 32.2, [place] % (Auto) 7.1 H, Eos % (Auto) 2.1, Baso % (Auto) 0.4, Gran # 6.22, Lymph # (Auto) 3.5 H, [place] # (Auto) 0.8 H, Eos # (Auto) 0.2, Baso # (Auto) 0.04 10/11/18 20:28: Alcohol, Quantitative < 10 10/11/18 20:28: Sodium 138, Potassium 3.9, Chloride 102, Carbon Dioxide 25, Anion Gap 15, BUN 18, Creatinine 0.6 L, Est GFR ( Amer) > 60, Est GFR (Non-Af Amer) > 60, Random Glucose 233 H, Calcium 9.9, Total Bilirubin 0.5, AST 49, ALT 43, Alkaline Phosphatase 76, Total Protein 7.4, Albumin 4.3, Globulin 3.0, Albumin/Globulin Ratio 1.4 10/11/18 20:28: Salicylates < 1 L, Acetaminophen < 10.0 L 10/11/18 20:19: Urine Color Yellow, Urine Appearance Clear, Urine pH 6.0, Ur Specific [place] >= 1.030, Urine Protein Negative, Urine Glucose (UA) 500 H, Urine Ketones Negative, Urine Blood Negative, Urine Nitrate Negative, Urine Bilirubin Negative, Urine Urobilinogen 0.2, Ur Leukocyte Esterase Negative 10/11/18 20:19: Urine Opiates Screen Negative, Urine Methadone Screen Negative, Ur Barbiturates Screen Negative, Ur Phencyclidine Scrn Negative, Ur Amphetamines Screen Negative, U Benzodiazepines Scrn Negative, U Oth Cocaine Metabols Negative, U Cannabinoids Screen Negative Vital Signs Temp Pulse Pulse Resp BP Pulse Ox 10/13/18 08:43 63 120/71 10/13/18 08:42 63 120/71 10/13/18 07:08 98.0 F 63 20 120/71 10/12/18 17:55 60 107/70 10/12/18 16:00 60 107/70 10/12/18 09:08 87 109/66 10/12/18 09:04 84 109/66 10/12/18 07:26 97.8 F 84 20 109/66 10/12/18 01:36 65 18 10/11/18 23:17 80 18 123/56 L 100 10/11/18 21:14 61 18 133/72 100 10/11/18 19:54 98.1 F 75 18 138/80 100 Temp Pulse Resp BP Pulse Ox 98.7 F 76 20 109/69 100 10/14/18 07:26 10/14/18 10:07 10/14/18 07:26 10/14/18 10:07 10/11/18 23:17 DSM 5 Symptoms Update: Short the patient is a 53-year-old male, recent stroke in July 2018, patient has paralysis of the left side of his body, patient is wheelchair-bound, patient was brought in by his girlfriend after patient was verbalizing thoughts of killing himself by gunshot. Obviously patient required further evaluation and stabilization and medications initiation and titration. Patient was seen and examined today at the area, patient presented with poor personal hygiene, poor ADLs, ambulates with a wheelchair. Notes reviewed discussed with staff. Patient said that he still feels "the same" patient appears to be depressed, disengaged, patient reported that "I constantly think of suicide", patient reported that he did sleep last night, still reported to feel hopeless and helpless. Patient denied any psychotic symptoms. As per staff patient preferred to be in his room, patient is disengaged, no agitation, no aggression. 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 So far patient tolerates medications well, no side effects observed or reported, aims 0, no EPS. Impression: DSM 5 Diagnosis: Rule out major depressive disorder Rule out mood disorder due to general medical condition Medication Change: Yes (Elavil increased) Medical Record Reviewed: Yes Consults ordered or reviewed: Medical consult appreciated Physical therapy consult appreciated Mental Status Examination - Cognitive Function Orientation: Person, Place, Situation, Time Memory: Intact Attention: Poor Concentration: Poor Association: WNL Fund of Knowledge: Poor - Mood Mood: Depressed, Anxious - Affect Affect: Flat - Formal Thought Process Formal Thought Process: Hallucinations ("I did not hear any voices") - Suicidal Ideation Suicidal Ideation: Yes - Homicidal Ideation Homicidal Ideation: No Goal/Treatment Plan - Goal/Treatment Plan Need for Continued Stay: Remain at risks for inpatient hospitalization, Severe depression anxiety, Discharge may exacerbated symptoms, Severe functional impairment Progress Toward Problem(s) and Goals/Treatment Plan: Milieu/structure/supportive therapy Medical consult appreciated, see medical team note for more detailed info Physical therapy consult appreciated likely patient needs to go to the gym here in [facility] and subacute rehab after consultation for discharge plan and social issues Med management Amitriptyline increased to 50 mg at the nighttime Depakote was started 250 mg twice a day for mood stabilization As needed medications Family involvement Follow up on labs Will monitor closely Pt was educated about risk/benefits and alternatives of medications, coping strategies (safety plan, suicide prevention), relapse prevention, importance of follow up with psychiatrist and therapist, stay away from drugs/alcohol/smoking Estimated Date of D/C: 10/20/18
[2018-10-14] MEDS: Insulin Detemir 100 units/ml Vial (Levemir) SC SCH (21:44)
[2018-10-15] MEDS: Pantoprazole 40 mg EC Tab PO SCH (06:23)
[2018-10-15] MEDS: Valproic Acid 250 mg/5 ml UD Cup PO SCH ×2 (09:27→17:19)
[2018-10-15] MEDS: Enoxaparin 30 mg Syringe SC SCH (09:39)
[2018-10-15] MEDS ORDERED: Insulin Lispro 1 UNITS/0.01 ML SC STA (11:59)
--- NOTE | 2018-10-15 12:52 | PCM.PYCHPN ---
Psychiatric Progress Note - Psychiatric Progress Note Patient seen today, length of contact: 30 minutes Patient Chief Complaint: "I feel little better, medication what I am taking at the nighttime works well, now I have something to look forward to, I have 40 ketones at home, my girlfriend is coming and visiting me daily" Problems Identified/Issues Discussed: Suicide/ homicide prevention, past psychiatric h/o, current psychiatric symptoms, medical problems, risk/benefits and alternatives of medications, medications compliance, coping strategies, substance abuse h/o, relapse prevention, importance of follow up with psychiatrist and therapist, discharge plan. Medical Problems: Multiple medical issues please see medical team notes for more detailed information Diagnostic Results: 10/11/18 20:28 10/11/18 20:28 Lab Results 10/12/18 20:55: POC Glucose (mg/dL) 202 H 10/12/18 16:28: POC Glucose (mg/dL) 103 10/12/18 11:18: POC Glucose (mg/dL) 227 H 10/12/18 07:19: POC Glucose (mg/dL) 235 H 10/12/18 06:15: RPR Nonreactive 10/12/18 06:15: TSH 3rd Generation 3.33 10/12/18 06:15: Fasting Glucose 254 H, Triglycerides 154, Cholesterol 132, LDL Cholesterol Direct 58, HDL Cholesterol 35 10/12/18 01:06: POC Glucose (mg/dL) 232 H 10/11/18 20:28: WBC 10.7, RBC 4.66, Hgb 12.6 L, Hct 38.9 L, MCV 83.5, MCH 27.0, MCHC 32.4, RDW 15.7 H, Plt Count 284, MPV 9.7, Gran % 58.2, Lymph % (Auto) 32.2, [place] % (Auto) 7.1 H, Eos % (Auto) 2.1, Baso % (Auto) 0.4, Gran # 6.22, Lymph # (Auto) 3.5 H, [place] # (Auto) 0.8 H, Eos # (Auto) 0.2, Baso # (Auto) 0.04 10/11/18 20:28: Alcohol, Quantitative < 10 10/11/18 20:28: Sodium 138, Potassium 3.9, Chloride 102, Carbon Dioxide 25, Anion Gap 15, BUN 18, Creatinine 0.6 L, Est GFR ( Amer) > 60, Est GFR (Non-Af Amer) > 60, Random Glucose 233 H, Calcium 9.9, Total Bilirubin 0.5, AST 49, ALT 43, Alkaline Phosphatase 76, Total Protein 7.4, Albumin 4.3, Globulin 3.0, Albumin/Globulin Ratio 1.4 10/11/18 20:28: Salicylates < 1 L, Acetaminophen < 10.0 L 10/11/18 20:19: Urine Color Yellow, Urine Appearance Clear, Urine pH 6.0, Ur Specific [place] >= 1.030, Urine Protein Negative, Urine Glucose (UA) 500 H, Urine Ketones Negative, Urine Blood Negative, Urine Nitrate Negative, Urine Bilirubin Negative, Urine Urobilinogen 0.2, Ur Leukocyte Esterase Negative 10/11/18 20:19: Urine Opiates Screen Negative, Urine Methadone Screen Negative, Ur Barbiturates Screen Negative, Ur Phencyclidine Scrn Negative, Ur Amphetamines Screen Negative, U Benzodiazepines Scrn Negative, U Oth Cocaine Metabols Negative, U Cannabinoids Screen Negative Vital Signs Temp Pulse Pulse Resp BP Pulse Ox 10/13/18 08:43 63 120/71 10/13/18 08:42 63 120/71 10/13/18 07:08 98.0 F 63 20 120/71 10/12/18 17:55 60 107/70 10/12/18 16:00 60 107/70 10/12/18 09:08 87 109/66 10/12/18 09:04 84 109/66 10/12/18 07:26 97.8 F 84 20 109/66 10/12/18 01:36 65 18 10/11/18 23:17 80 18 123/56 L 100 10/11/18 21:14 61 18 133/72 100 10/11/18 19:54 98.1 F 75 18 138/80 100 Temp Pulse Resp BP Pulse Ox 98.7 F 76 20 109/69 100 10/14/18 07:26 10/14/18 10:07 10/14/18 07:26 10/14/18 10:07 10/11/18 23:17 Laboratory Results - last 24 hr 10/14/18 10/14/18 10/15/18 16:29 21:25 07:40 POC Glucose (mg/dL) 235 H 216 H 144 H DSM 5 Symptoms Update: Short the patient is a 53-year-old male, recent stroke in July 2018, patient has paralysis of the left side of his body, patient is wheelchair-bound, patient was brought in by his girlfriend after patient was verbalizing thoughts of killing himself by gunshot. Obviously patient required further evaluation and stabilization and medications initiation and titration. Patient was seen and examined today in his room with mental health worker, patient presented with poor personal hygiene, poor ADLs, ambulates with a wheelchair. Notes reviewed discussed with staff. Today was the first day when patient presented with some improvements of his symptoms, patient said that he slept well, he likes his medications, mood reported to be "feeling better", today is the first day when patient denied thoughts of harming himself, which is a treatment for the patient. Transient feeling of hopelessness, helplessness majority of the time it is related to neurological deficit status post stroke. Patient denied any psychotic symptoms. As per staff patient preferred to be in his room, patient is disengaged, no agitation, no aggression. This process description writer had a prolonged conversation with physical therapy team, patient was recommended to attend hospital's gym. So far patient tolerates medications well, no side effects observed or reported, aims 0, no EPS. Impression: DSM 5 Diagnosis: Rule out major depressive disorder Rule out mood disorder due to general medical condition Medication Change: Yes (Amitriptyline was increased October 14, 2018) Medical Record Reviewed: Yes Consults ordered or reviewed: Medical consult appreciated Physical therapy consult appreciated Mental Status Examination - Cognitive Function Orientation: Person, Place, Situation, Time Memory: Intact Attention: Poor Concentration: Poor Association: WNL Fund of Knowledge: Poor - Mood Mood: Depressed, Anxious - Affect Affect: Flat - Formal Thought Process Formal Thought Process: Hallucinations ("I did not hear any voices") - Suicidal Ideation Suicidal Ideation: Yes - Homicidal Ideation Homicidal Ideation: No Goal/Treatment Plan - Goal/Treatment Plan Need for Continued Stay: Remain at risks for inpatient hospitalization, Severe depression anxiety, Discharge may exacerbated symptoms, Severe functional impairment Progress Toward Problem(s) and Goals/Treatment Plan: Milieu/structure/supportive therapy Medical consult appreciated, see medical team note for more detailed info Physical therapy consult appreciated likely patient needs to go to the gym here in [facility] and subacute rehab after consultation for discharge plan and social issues Med management Amitriptyline increased to 50 mg at the nighttime Depakote was started 250 mg twice a day for mood stabilization As needed medications Family involvement Follow up on labs Will monitor closely Pt was educated about risk/benefits and alternatives of medications, coping strategies (safety plan, suicide prevention), relapse prevention, importance of follow up with psychiatrist and therapist, stay away from drugs/alcohol/smoking Estimated Date of D/C: 10/20/18
[2018-10-15] MEDS: Insulin Reg-MEDIUM-Coverage SC SCH ×2 (17:19→21:50)
[2018-10-15] MEDS: Insulin Detemir 100 units/ml Vial (Levemir) SC SCH (21:51)
[2018-10-16] MEDS: Pantoprazole 40 mg EC Tab PO SCH (06:30)
[2018-10-16] MEDS: Insulin Reg-MEDIUM-Coverage SC SCH ×4 (08:29→22:11)
[2018-10-16] MEDS: Enoxaparin 30 mg Syringe SC SCH ×2 (08:30→17:24)
[2018-10-16] MEDS: Valproic Acid 250 mg/5 ml UD Cup PO SCH ×2 (08:30→16:29)
--- NOTE | 2018-10-16 09:19 | PCM.PYCHPN ---
Psychiatric Progress Note - Psychiatric Progress Note Patient seen today, length of contact: 30 minutes Problems Identified/Issues Discussed: I reviewed assessment and recent notes. I met with patient at bedside. Patient is a 53-year-old male who was admitted after verbalizing thoughts to shoot himself, his depression related to immobility s/p recent stroke in July 2018. Patient continues to be depressed, has trouble finding hope because of his physical condition. He reports that he feels the same as yesterday, his affect is constricted and he seems hopeless. Patient denies any SI today (apparently yesterday was the first day he denied having thoughts of harming himself). Patient's thought process is coherent and goal directed. Alert and oriented x3. Patient reports that he has visual hallucinations of car headlights heading toward him. He also sees spiders on the an. Denies auditory hallucinations. Patient is tolerating his medications, denies any new discomfort or pain. Diagnostic Results: Rule out major depressive disorder Rule out mood disorder due to general medical condition Medication Change: No ( ) Medical Record Reviewed: Yes Mental Status Examination - Cognitive Function Orientation: Person, Place, Situation, Time Memory: Intact Attention: Poor Concentration: Poor Association: WNL Fund of Knowledge: Poor - Mood Mood: Depressed, Anxious - Affect Affect: Flat - Speech Speech: Soft - Formal Thought Process Formal Thought Process: Hallucinations ( visual hallucinations of car headlights heading toward him. He also sees spiders on the an) - Suicidal Ideation Suicidal Ideation: No - Homicidal Ideation Homicidal Ideation: No Goal/Treatment Plan - Goal/Treatment Plan Need for Continued Stay: Remain at risks for inpatient hospitalization, Severe depression anxiety, Discharge may exacerbated symptoms, Severe functional impairment Progress Toward Problem(s) and Goals/Treatment Plan: * c/w current tx and plan * Vitals reviewed and noted below: Selected Entries 10/15/18 07:18 Temperature 97.7 F Pulse Rate 63 Respiratory 20 Rate Blood Pressure 117/73 * No new weekend lab results thus far. Estimated Date of D/C: 10/20/18
[2018-10-16] MEDS: Insulin Detemir 100 units/ml Vial (Levemir) SC SCH (22:16)
[2018-10-17] MEDS: Pantoprazole 40 mg EC Tab PO SCH (06:05)
[2018-10-17] MEDS: Enoxaparin 30 mg Syringe SC SCH (08:39)
[2018-10-17] MEDS: Valproic Acid 250 mg/5 ml UD Cup PO SCH ×2 (08:39→16:32)
[2018-10-17] MEDS: Insulin Reg-MEDIUM-Coverage SC SCH ×4 (08:42→21:54)
--- NOTE | 2018-10-17 09:22 | PCM.PYCHPN ---
Psychiatric Progress Note - Psychiatric Progress Note Patient seen today, length of contact: 30 minutes Problems Identified/Issues Discussed: Patient is a 53-year-old male who was admitted after verbalizing thoughts to shoot himself, his depression related to immobility s/p recent stro ke in July 2018. I reviewed recent notes and met with patient at bedside. Patient continues to be depressed, has trouble finding hope because of his physical condition but feeling more hopeful than hopeless since admission. He reports that he feels the same as yesterday, His affect is constricted and he appears despondent. He continues to deny SI and has denied SI all weekend thus far (apparently Thursday was the first day he denied having thoughts of harming himself). Patient's thought process is coherent and goal directed. Alert and oriented x3. Patient reports that he has visual hallucinations of car headlights heading toward him. He also sees spiders on the an. He tells me that he experiences these hallucinations constantly. Patient denies auditory hallucinations. Patient is tolerating his medications, denies any new discomfort or pain and reports that he is comfortable. Staff have noted that he seems a little brighter, more reactive, observed joking around during the day yesterday. Diagnostic Results: Rule out major depressive disorder Rule out mood disorder due to general medical condition Medication Change: No ( ) Medical Record Reviewed: Yes Mental Status Examination - Cognitive Function Orientation: Person, Place, Situation, Time Memory: Intact Attention: WNL Concentration: Poor Association: WNL Fund of Knowledge: Poor - Mood Mood: Depressed (more hopeful than hopeless), Anxious - Affect Affect: Flat - Speech Speech: Soft - Formal Thought Process Formal Thought Process: Hallucinations ( visual hallucinations of car headlights heading toward him. He also sees spiders on the an) - Suicidal Ideation Suicidal Ideation: No - Homicidal Ideation Homicidal Ideation: No Goal/Treatment Plan - Goal/Treatment Plan Need for Continued Stay: Remain at risks for inpatient hospitalization, Severe depression anxiety, Discharge may exacerbated symptoms, Severe functional impairment Progress Toward Problem(s) and Goals/Treatment Plan: * c/w current tx and plan * Vitals reviewed and noted below: Selected Entries 10/16/18 10/16/18 07:00 16:29 Temperature 97.7 F Pulse Rate 71 82 Respiratory 19 Rate Blood Pressure 108/67 112/78 * No new weekend lab results thus far. Estimated Date of D/C: 10/20/18
[2018-10-17] MEDS: Insulin Detemir 100 units/ml Vial (Levemir) SC SCH (22:14)
[2018-10-18] MEDS: Pantoprazole 40 mg EC Tab PO SCH (06:52)
[2018-10-18] MEDS: Valproic Acid 250 mg/5 ml UD Cup PO SCH ×2 (08:40→17:33)
[2018-10-18] MEDS: Enoxaparin 30 mg Syringe SC SCH (08:46)
[2018-10-18] MEDS: Insulin Reg-MEDIUM-Coverage SC SCH ×4 (08:50→21:36)
--- NOTE | 2018-10-18 15:22 | PCM.PYCHPN ---
Psychiatric Progress Note - Psychiatric Progress Note Patient seen today, length of contact: 30 minutes Patient Chief Complaint: "I feel little better, medication what I am taking at the nighttime works but I still have difficulties to stay asleep".. Problems Identified/Issues Discussed: Suicide/ homicide prevention, past psychiatric h/o, current psychiatric symptoms, medical problems, risk/benefits and alternatives of medications, medications compliance, coping strategies, substance abuse h/o, relapse prevention, importance of follow up with psychiatrist and therapist, discharge plan. Medical Problems: Multiple medical issues please see medical team notes for more detailed information Diagnostic Results: 10/11/18 20:28 10/11/18 20:28 Lab Results 10/12/18 20:55: POC Glucose (mg/dL) 202 H 10/12/18 16:28: POC Glucose (mg/dL) 103 10/12/18 11:18: POC Glucose (mg/dL) 227 H 10/12/18 07:19: POC Glucose (mg/dL) 235 H 10/12/18 06:15: RPR Nonreactive 10/12/18 06:15: TSH 3rd Generation 3.33 10/12/18 06:15: Fasting Glucose 254 H, Triglycerides 154, Cholesterol 132, LDL Cholesterol Direct 58, HDL Cholesterol 35 10/12/18 01:06: POC Glucose (mg/dL) 232 H 10/11/18 20:28: WBC 10.7, RBC 4.66, Hgb 12.6 L, Hct 38.9 L, MCV 83.5, MCH 27.0, MCHC 32.4, RDW 15.7 H, Plt Count 284, MPV 9.7, Gran % 58.2, Lymph % (Auto) 32.2, [place] % (Auto) 7.1 H, Eos % (Auto) 2.1, Baso % (Auto) 0.4, Gran # 6.22, Lymph # (Auto) 3.5 H, [place] # (Auto) 0.8 H, Eos # (Auto) 0.2, Baso # (Auto) 0.04 10/11/18 20:28: Alcohol, Quantitative < 10 10/11/18 20:28: Sodium 138, Potassium 3.9, Chloride 102, Carbon Dioxide 25, Anion Gap 15, BUN 18, Creatinine 0.6 L, Est GFR ( Amer) > 60, Est GFR (Non-Af Amer) > 60, Random Glucose 233 H, Calcium 9.9, Total Bilirubin 0.5, AST 49, ALT 43, Alkaline Phosphatase 76, Total Protein 7.4, Albumin 4.3, Globulin 3.0, Albumin/Globulin Ratio 1.4 10/11/18 20:28: Salicylates < 1 L, Acetaminophen < 10.0 L 10/11/18 20:19: Urine Color Yellow, Urine Appearance Clear, Urine pH 6.0, Ur Specific [place] >= 1.030, Urine Protein Negative, Urine Glucose (UA) 500 H, Urine Ketones Negative, Urine Blood Negative, Urine Nitrate Negative, Urine Bilirubin Negative, Urine Urobilinogen 0.2, Ur Leukocyte Esterase Negative 10/11/18 20:19: Urine Opiates Screen Negative, Urine Methadone Screen Negative, Ur Barbiturates Screen Negative, Ur Phencyclidine Scrn Negative, Ur Amphetamines Screen Negative, U Benzodiazepines Scrn Negative, U Oth Cocaine Metabols Negative, U Cannabinoids Screen Negative Vital Signs Temp Pulse Pulse Resp BP Pulse Ox 10/13/18 08:43 63 120/71 10/13/18 08:42 63 120/71 10/13/18 07:08 98.0 F 63 20 120/71 10/12/18 17:55 60 107/70 10/12/18 16:00 60 107/70 10/12/18 09:08 87 109/66 10/12/18 09:04 84 109/66 10/12/18 07:26 97.8 F 84 20 109/66 10/12/18 01:36 65 18 10/11/18 23:17 80 18 123/56 L 100 10/11/18 21:14 61 18 133/72 100 10/11/18 19:54 98.1 F 75 18 138/80 100 Temp Pulse Resp BP Pulse Ox 98.7 F 76 20 109/69 100 10/14/18 07:26 10/14/18 10:07 10/14/18 07:26 10/14/18 10:07 10/11/18 23:17 Laboratory Results - last 24 hr 10/14/18 10/14/18 10/15/18 16:29 21:25 07:40 POC Glucose (mg/dL) 235 H 216 H 144 H DSM 5 Symptoms Update: Short the patient is a 53-year-old male, recent stroke in July 2018, patient has paralysis of the left side of his body, patient is wheelchair-bound, patient was brought in by his girlfriend after patient was verbalizing thoughts of killing himself by gunshot. Obviously patient required further evaluation and stabilization and medications initiation and titration. Patient was seen and examined today at the TV area, patient presented with improved personal hygiene, poor ADLs, ambulates with a wheelchair. Notes reviewed discussed with staff. pt still has suicidal ideations with the plan to shot himself with the gun, as per SW pt's friend own a gun, SW will contact pt's girlfriend, notify. pt denied intent or plan to kill self. Transient feeling of hopelessness, helplessness majority of the time it is related to neurological deficit status post stroke. Patient reported visual hallucinations to over the weekend. As per staff patient preferred to be in his room, patient is disengaged, no agitation, no aggression. This writer producer had a prolonged conversation with physical therapy team, patient was recommended to attend hospital's gym. So far patient tolerates medications well, no side effects observed or reported, aims 0, no EPS. Impression: DSM 5 Diagnosis: Rule out major depressive disorder Rule out mood disorder due to general medical condition Medication Change: Yes (nortriptillin increased ) Medical Record Reviewed: Yes Consults ordered or reviewed: Medical consult appreciated Physical therapy consult appreciated Mental Status Examination - Cognitive Function Orientation: Person, Place, Situation, Time Memory: Intact Attention: WNL Concentration: Poor Association: WNL Fund of Knowledge: Poor - Mood Mood: Depressed (more hopeful than hopeless), Anxious - Affect Affect: Flat - Speech Speech: Soft - Formal Thought Process Formal Thought Process: Hallucinations ( visual hallucinations of car headlights heading toward him. He also sees spiders on the an ) - Suicidal Ideation Suicidal Ideation: No - Homicidal Ideation Homicidal Ideation: No Goal/Treatment Plan - Goal/Treatment Plan Need for Continued Stay: Remain at risks for inpatient hospitalization, Severe depression anxiety, Discharge may exacerbated symptoms, Severe functional impairment Progress Toward Problem(s) and Goals/Treatment Plan: Milieu/structure/supportive therapy Medical consult appreciated, see medical team note for more detailed info Physical therapy consult appreciated likely patient needs to go to the gym here in [facility] and subacute rehab after consultation for discharge plan and social issues Med management Amitriptyline increased to 75 mg at the nighttime Depakote 250 mg twice a day for mood stabilization As needed medications Family involvement Follow up on labs Will monitor closely Pt was educated about risk/benefits and alternatives of medications, coping strategies (safety plan, suicide prevention), relapse prevention, importance of follow up with psychiatrist and therapist, stay away from drugs/alcohol/smoking Estimated Date of D/C: 10/22/18
[2018-10-18] MEDS: Insulin Detemir 100 units/ml Vial (Levemir) SC SCH (21:35)
[2018-10-19] MEDS: Pantoprazole 40 mg EC Tab PO SCH (06:33)
[2018-10-19] MEDS: Valproic Acid 250 mg/5 ml UD Cup PO SCH ×2 (09:03→17:34)
[2018-10-19] MEDS: Enoxaparin 30 mg Syringe SC SCH (09:04)
[2018-10-19] MEDS: Insulin Reg-MEDIUM-Coverage SC SCH ×4 (09:05→21:35)
--- NOTE | 2018-10-19 15:14 | PCM.PYCHPN ---
Psychiatric Progress Note - Psychiatric Progress Note Patient seen today, length of contact: 30 minutes Patient Chief Complaint: "I am hurting myself by sitting on this uncomfortable chair" Problems Identified/Issues Discussed: Suicide/ homicide prevention, past psychiatric h/o, current psychiatric symptoms, medical problems, risk/benefits and alternatives of medications, medications compliance, coping strategies, substance abuse h/o, relapse prevention, importance of follow up with psychiatrist and therapist, discharge plan. Medical Problems: Multiple medical issues please see medical team notes for more detailed information Diagnostic Results: 10/11/18 20:28 10/11/18 20:28 Lab Results 10/12/18 20:55: POC Glucose (mg/dL) 202 H 10/12/18 16:28: POC Glucose (mg/dL) 103 10/12/18 11:18: POC Glucose (mg/dL) 227 H 10/12/18 07:19: POC Glucose (mg/dL) 235 H 10/12/18 06:15: RPR Nonreactive 10/12/18 06:15: TSH 3rd Generation 3.33 10/12/18 06:15: Fasting Glucose 254 H, Triglycerides 154, Cholesterol 132, LDL Cholesterol Direct 58, HDL Cholesterol 35 10/12/18 01:06: POC Glucose (mg/dL) 232 H 10/11/18 20:28: WBC 10.7, RBC 4.66, Hgb 12.6 L, Hct 38.9 L, MCV 83.5, MCH 27.0, MCHC 32.4, RDW 15.7 H, Plt Count 284, MPV 9.7, Gran % 58.2, Lymph % (Auto) 32.2, [place] % (Auto) 7.1 H, Eos % (Auto) 2.1, Baso % (Auto) 0.4, Gran # 6.22, Lymph # (Auto) 3.5 H, [place] # (Auto) 0.8 H, Eos # (Auto) 0.2, Baso # (Auto) 0.04 10/11/18 20:28: Alcohol, Quantitative < 10 10/11/18 20:28: Sodium 138, Potassium 3.9, Chloride 102, Carbon Dioxide 25, Anion Gap 15, BUN 18, Creatinine 0.6 L, Est GFR ( Amer) > 60, Est GFR (Non-Af Amer) > 60, Random Glucose 233 H, Calcium 9.9, Total Bilirubin 0.5, AST 49, ALT 43, Alkaline Phosphatase 76, Total Protein 7.4, Albumin 4.3, Globulin 3 .0, Albumin/Globulin Ratio 1.4 10/11/18 20:28: Salicylates < 1 L, Acetaminophen < 10.0 L 10/11/18 20:19: Urine Color Yellow, Urine Appearance Clear, Urine pH 6.0, Ur Specific [place] >= 1.030, Urine Protein Negative, Urine Glucose (UA) 500 H, Urine Ketones Negative, Urine Blood Negative, Urine Nitrate Negative, Urine Bilirubin Negative, Urine Urobilinogen 0.2, Ur Leukocyte Esterase Negative 10/11/18 20:19: Urine Opiates Screen Negative, Urine Methadone Screen Negative, Ur Barbiturates Screen Negative, Ur Phencyclidine Scrn Negative, Ur Amphetamines Screen Negative, U Benzodiazepines Scrn Negative, U Oth Cocaine Metabols Negative, U Cannabinoids Screen Negative Vital Signs Temp Pulse Pulse Resp BP Pulse Ox 10/13/18 08:43 63 120/71 10/13/18 08:42 63 120/71 10/13/18 07:08 98.0 F 63 20 120/71 10/12/18 17:55 60 107/70 10/12/18 16:00 60 107/70 10/12/18 09:08 87 109/66 10/12/18 09:04 84 109/66 10/12/18 07:26 97.8 F 84 20 109/66 10/12/18 01:36 65 18 10/11/18 23:17 80 18 123/56 L 100 10/11/18 21:14 61 18 133/72 100 10/11/18 19:54 98.1 F 75 18 138/80 100 Temp Pulse Resp BP Pulse Ox 98.7 F 76 20 109/69 100 10/14/18 07:26 10/14/18 10:07 10/14/18 07:26 10/14/18 10:07 10/11/18 23:17 Laboratory Results - last 24 hr 10/14/18 10/14/18 10/15/18 16:29 21:25 07:40 POC Glucose (mg/dL) 235 H 216 H 144 H DSM 5 Symptoms Update: Short the patient is a 53-year-old male, recent stroke in July 2018, patient has paralysis of the left side of his body, patient is wheelchair-bound, patient was brought in by his girlfriend after patient was verbalizing thoughts of killing himself by gunshot. Obviously patient required further evaluation and stabilization and medications initiation and titration. Patient was seen and examined today at the TV area, patient presented with improved personal hygiene, poor ADLs, ambulates with a wheelchair. Notes review ed discussed with staff. Patient reported that she slept better, patient complaining of visual hallucinations "train is coming up on me". As per healthcare social worker patient's girlfriend does not want to accept patient back home, most likely patient would require skilled nursing placement. As per staff patient preferred to be in his room, patient is disengaged, at times could be abusive towards staff, cursing. 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 So far patient tolerates medications well, no side effects observed or reported, aims 0, no EPS. Impression: DSM 5 Diagnosis: Rule out major depressive disorder Rule out mood disorder due to general medical condition Medication Change: Yes (nortriptillin increased yesterday, patient does not want antipsychotic meds) Medical Record Reviewed: Yes Consults ordered or reviewed: Medical consult appreciated Physical therapy consult appreciated Mental Status Examination - Cognitive Function Orientation: Person, Place, Situation, Time Memory: Intact Attention: WNL Concentration: Poor Association: WNL Fund of Knowledge: Poor - Mood Mood: Depressed (I have no hope), Anxious - Affect Affect: Flat - Speech Speech: Soft - Formal Thought Process Formal Thought Process: Hallucinations ("Training is coming on me") - Suicidal Ideation Suicidal Ideation: No - Homicidal Ideation Homicidal Ideation: No Goal/Treatment Plan - Goal/Treatment Plan Need for Continued Stay: Remain at risks for inpatient hospitalization, Severe depression anxiety, Discharge may exacerbated symptoms, Severe functional impa irment Progress Toward Problem(s) and Goals/Treatment Plan: Milieu/structure/supportive therapy Medical consult appreciated, see medical team note for more detailed info Physical therapy consult appreciated SW consultation for discharge plan and social issues Med management Amitriptyline increased to 75 mg at the nighttime Depakote 500 mg twice a day for mood stabilization We will consider antipsychotic medication but patient refused to be on it As needed medications Family involvement Follow up on labs Will monitor closely Pt was educated about risk/benefits and alternatives of medications, coping strategies (safety plan, suicide prevention), relapse prevention, importance of follow up with psychiatrist and therapist, stay away from drugs/alcohol/smoking Estimated Date of D/C: 10/22/18
[2018-10-19] MEDS: Insulin Detemir 100 units/ml Vial (Levemir) SC SCH (21:35)
[2018-10-20] MEDS: Pantoprazole 40 mg EC Tab PO SCH (06:51)
[2018-10-20] MEDS: Insulin Reg-MEDIUM-Coverage SC SCH ×4 (09:03→21:12)
[2018-10-20] MEDS: Valproic Acid 250 mg/5 ml UD Cup PO SCH ×2 (09:10→17:07)
[2018-10-20] MEDS: Enoxaparin 30 mg Syringe SC SCH (09:10)
--- NOTE | 2018-10-20 11:55 | PCM.BM ---
<Emma Linn Y - Last Filed: 10/20/18 11:55> Treatment Plan Problems - Problems identified on initial assessmt High risk suicide Date Initiated: 10/12/18 Time Initiated: Assessment reference: NA Status: Active ineffective coping Date Initiated: 10/12/18 Time Initiated: :29 Assessment reference: NA Status: Active Hopelessness/Helplessness Date Initiated: 10/12/18 Time Initiated: :30 Assessment reference: NA Status: Active Activity intolerence Date Initiated: 10/12/18 Time Initiated: :30 Assessment reference: NA Status: Active self care deficit Date Initiated: 10/12/18 Time Initiated: :31 Assessment reference: NA Status: Active Treatment assets and liabiliti Patient Assests: cooperative, educated, motivated, cognitively intact Patient Liabilities: physical pain, medical problems - Milieu Protocol Maintain good personal hygiene: daily Encourage regular showers, daily Remind patient to perform daily oral care, daily Assist patient to perform ADL's Maintain personal safety: daily Educate patient to report safety concerns to staff, daily Monitor environment for contraband/sharps Medication safety: Monitor for expected outcome, potential side effects: daily, Assess barriers to learning: daily, Assess readiness for medication education: daily Milieu Narrative: Milieu/structure/supportive therapy Medical consult appreciated, see medical team note for more detailed info Physical therapy consult appreciated SW consultation for discharge plan and social issues Med management Amitriptyline increased to 75 mg at the nighttime Depakote 500 mg twice a day for mood stabilization We will consider antipsychotic medication but patient refused to be on it As needed medications Family involvement Follow up on labs Will monitor closely Pt was educated about risk/benefits and alternatives of medications, coping strategies (safety plan, suicide prevention), relapse prevention, importance of follow up with psychiatrist and therapist, stay away from drugs/alcohol/smoking Family Contact Family contact: Patient agrees to contact Family contact name: Yara Alba(girlfriend) Family contacted how many times per week?: 2 - Goals for Treatment Patient goals for treatment: "I want to go to rehab." Discharge/Continuing Care - Education Needs Education Needs: Patient Medication, Patient Diagnosis/Disease Process, Patient Coping Skills, Patient Placement options, Patient Activities of Daily Living, Patient Pain, Patient Nutrition, Patient Uses of Medical Equipment, Patient Health Practices/Safety, Patient Personal Hygiene/Grooming, Patient Aftercare Safety Plan - Discharge Discharge Criteria: Tolerates medication w/o severe side effects, Free of Suicidal thoughts, Normal sleep pattern, Ability to care for self Discharge to:: Home - Treatment Team Participation Patient/Family/SO Statement: Milieu/structure/supportive therapy Medical consult appreciated, see medical team note for more detailed info Physical therapy consult appreciated SW consultation for discharge plan and social issues Med management Amitriptyline increased to 75 mg at the nighttime Depakote 500 mg twice a day for mood stabilization We will consider antipsychotic medication but patient refused to be on it As needed medications Family involvement Follow up on labs Will monitor closely Pt was educated about risk/benefits and alternatives of medications, coping strategies (safety plan, suicide prevention), relapse prevention, importance of follow up with psychiatrist and therapist, stay away from drugs/alcohol/smoking Treatment Plan Review - Problem High risk suicide Time Initiated: :29 ineffective coping Time Initiated: :29 Hopelessness/Helplessness Time Initiated: 01:30 Activity intolerence Time Initiated: :30 self care deficit Time Initiated: 01:31 <Savanah Galarza - Last Filed: 10/20/18 14:43> - Diagnosis (1) MDD (major depressive disorder) Status: Acute Interventions: 10/20/18 14:42 Patient still appears to be depressed, hopeless, helpless, has some future oriented plans "to become better and physical therapy", at the same time patient has a lot of social issues such as patient girlfriend most likely will be not able to take care of him, and patient might require assisted placement. Patient denied thoughts of harming himself or others, has some improvements with his presentation. 10/20/18 14:43 Still requires further hospitalization and observation and medications adjustment
--- NOTE | 2018-10-20 14:48 | PCM.PYCHPN ---
Psychiatric Progress Note - Psychiatric Progress Note Patient seen today, length of contact: 30 minutes Patient Chief Complaint: "I am okay" Problems Identified/Issues Discussed: Suicide/ homicide prevention, past psychiatric h/o, current psychiatric symptoms, medical problems, risk/benefits and alternatives of medications, medications compliance, coping strategies, substance abuse h/o, relapse prevention, importance of follow up with psychiatrist and therapist, discharge plan. Medical Problems: Multiple medical issues please see medical team notes for more detailed information Diagnostic Results: 10/11/18 20:28 10/11/18 20:28 Lab Results 10/12/18 20:55: POC Glucose (mg/dL) 202 H 10/12/18 16:28: POC Glucose (mg/dL) 103 10/12/18 11:18: POC Glucose (mg/dL) 227 H 10/12/18 07:19: POC Glucose (mg/dL) 235 H 10/12/18 06:15: RPR Nonreactive 10/12/18 06:15: TSH 3rd Generation 3.33 10/12/18 06:15: Fasting Glucose 254 H, Triglycerides 154, Cholesterol 132, LDL Cholesterol Direct 58, HDL Cholesterol 35 10/12/18 01:06: POC Glucose (mg/dL) 232 H 10/11/18 20:28: WBC 10.7, RBC 4.66, Hgb 12.6 L, Hct 38.9 L, MCV 83.5, MCH 27.0, MCHC 32.4, RDW 15.7 H, Plt Count 284, MPV 9.7, Gran % 58.2, Lymph % (Auto) 32.2, [place] % (Auto) 7.1 H, Eos % (Auto) 2.1, Baso % (Auto) 0.4, Gran # 6.22, Lymph # (Auto) 3.5 H, [place] # (Auto) 0.8 H, Eos # (Auto) 0.2, Baso # (Auto) 0.04 10/11/18 20:28: Alcohol, Quantitative < 10 10/11/18 20:28: Sodium 138, Potassium 3.9, Chloride 102, Carbon Dioxide 25, Anion Gap 15, BUN 18, Creatinine 0.6 L, Est GFR ( Amer) > 60, Est GFR (Non-Af Amer) > 60, Random Glucose 233 H, Calcium 9.9, Total Bilirubin 0.5, AST 49, ALT 43, Alkaline Phosphatase 76, Total Protein 7.4, Albumin 4.3, Globulin 3.0, Albumin/Globulin Ratio 1.4 10/11/18 20:28: Salicylates < 1 L, Acetaminophen < 10.0 L 10/11/18 20:19: Urine Color Yellow, Urine Appearance Clear, Urine pH 6.0, Ur Specific [place] >= 1.030, Urine Protein Negative, Urine Glucose (UA) 500 H, Urine Ketones Negative, Urine Blood Negative, Urine Nitrate Negative, Urine Bilirubin Negative, Urine Urobilinogen 0.2, Ur Leukocyte Esterase Negative 10/11/18 20:19: Urine Opiates Screen Negative, Urine Methadone Screen Negative, Ur Barbiturates Screen Negative, Ur Phencyclidine Scrn Negative, Ur Amphetamines Screen Negative, U Benzodiazepines Scrn Negative, U Oth Cocaine Metabols Negative, U Cannabinoids Screen Negative Vital Signs Temp Pulse Pulse Resp BP Pulse Ox 10/13/18 08:43 63 120/71 10/13/18 08:42 63 120/71 10/13/18 07:08 98.0 F 63 20 120/71 10/12/18 17:55 60 107/70 10/12/18 16:00 60 107/70 10/12/18 09:08 87 109/66 10/12/18 09:04 84 109/66 10/12/18 07:26 97.8 F 84 20 109/66 10/12/18 01:36 65 18 10/11/18 23:17 80 18 123/56 L 100 10/11/18 21:14 61 18 133/72 100 10/11/18 19:54 98.1 F 75 18 138/80 100 Temp Pulse Resp BP Pulse Ox 98.7 F 76 20 109/69 100 10/14/18 07:26 10/14/18 10:07 10/14/18 07:26 10/14/18 10:07 10/11/18 23:17 Laboratory Results - last 24 hr 10/14/18 10/14/18 10/15/18 16:29 21:25 07:40 POC Glucose (mg/dL) 235 H 216 H 144 H DSM 5 Symptoms Update: Short the patient is a 53-year-old male, recent stroke in July 2018, patient has paralysis of the left side of his body, patient is wheelchair-bound, patient was brought in by his girlfriend after patient was verbalizing thoughts of killing himself by gunshot. Obviously patient required further evaluation and stabilization and medications initiation and titration. Patient was seen and examined today at the treatment team meeting, patient presented with some improvements of his hygiene, patient still appears to be depressed, was tearful about his previous life and history of working for 12 hours a day, patient feels sad that he cannot provide for his family right now. As per the patient drove a friend she cannot take care of him, most likely patient will require [place] [facility] placement, will schedule conference phone call with the his girlfriend to come up with final disposition plan. Patient indicated she is against him taking things daily as needed she aching does not transient visual hallucinations, off note yesterday patient had impression that cars and trains are going towards him. Patient denied thoughts of killing himself or others today. As per staff patient preferred to be in his room, patient is disengaged, at times could be abusive towards staff, cursing. 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 So far patient tolerates medications well, no side effects observed or reported, aims 0, no EPS. Impression: DSM 5 Diagnosis: Rule out major depressive disorder Rule out mood disorder due to general medical condition Medication Change: Yes (nortriptillin increased yesterday, patient does not want antipsychotic meds) Medical Record Reviewed: Yes Mental Status Examination - Cognitive Function Orientation: Person, Place, Situation, Time Memory: Intact Attention: WNL Concentration: Poor Association: WNL Fund of Knowledge: Poor - Mood Mood: Depressed (I have no hope), Anxious - Affect Affect: Flat - Speech Speech: Soft - Formal Thought Process Formal Thought Process: Hallucinations ("Trains and cars are coming on me") - Suicidal Ideation Suicidal Ideation: No - Homicidal Ideation Homicidal Ideation: No Goal/Treatment Plan - Goal/Treatment Plan Need for Continued Stay: Remain at risks for inpatient hospitalization, Severe depression anxiety, Discharge may exacerbated symptoms, Severe functional impairment Progress Toward Problem(s) and Goals/Treatment Plan: Milieu/structure/supportive therapy Medical consult appreciated, see medical team note for more detailed info Physical therapy consult appreciated SW consultation for discharge plan and social issues Med management Amitriptyline increased to 75 mg at the nighttime October 19, 2018 Depakote 500 mg twice a day for mood stabilization We will consider antipsychotic medication but patient refused to be on it As needed medications Family involvement Follow up on labs Will monitor closely Pt was educated about risk/benefits and alternatives of medications, coping strategies (safety plan, suicide prevention), relapse prevention, importance of follow up with psychiatrist and therapist, stay away from drugs/alcohol/smoking Estimated Date of D/C: 10/22/18
[2018-10-20] MEDS: Insulin Detemir 100 units/ml Vial (Levemir) SC SCH (21:57)
[2018-10-21] MEDS: Pantoprazole 40 mg EC Tab PO SCH (06:34)
[2018-10-21] MEDS: Insulin Reg-MEDIUM-Coverage SC SCH ×4 (08:12→21:48)
[2018-10-21] MEDS: Valproic Acid 250 mg/5 ml UD Cup PO SCH ×2 (09:26→17:42)
[2018-10-21] MEDS: Enoxaparin 30 mg Syringe SC SCH (09:30)
--- NOTE | 2018-10-21 15:05 | PCM.PYCHPN ---
Psychiatric Progress Note - Psychiatric Progress Note Patient seen today, length of contact: 30 minutes Patient Chief Complaint: "I am okay" Problems Identified/Issues Discussed: Suicide/ homicide prevention, past psychiatric h/o, current psychiatric symptoms, medical problems, risk/benefits and alternatives of medications, medications compliance, coping strategies, substance abuse h/o, relapse prevention, importance of follow up with psychiatrist and therapist, discharge plan. Medical Problems: Multiple medical issues please see medical team notes for more detailed information Diagnostic Results: 10/11/18 20:28 10/11/18 20:28 Lab Results 10/12/18 20:55: POC Glucose (mg/dL) 202 H 10/12/18 16:28: POC Glucose (mg/dL) 103 10/12/18 11:18: POC Glucose (mg/dL) 227 H 10/12/18 07:19: POC Glucose (mg/dL) 235 H 10/12/18 06:15: RPR Nonreactive 10/12/18 06:15: TSH 3rd Generation 3.33 10/12/18 06:15: Fasting Glucose 254 H, Triglycerides 154, Cholesterol 132, LDL Cholesterol Direct 58, HDL Cholesterol 35 10/12/18 01:06: POC Glucose (mg/dL) 232 H 10/11/18 20:28: WBC 10.7, RBC 4.66, Hgb 12.6 L, Hct 38.9 L, MCV 83.5, MCH 27.0, MCHC 32.4, RDW 15.7 H, Plt Count 284, MPV 9.7, Gran % 58.2, Lymph % (Auto) 32.2, [place] % (Auto) 7.1 H, Eos % (Auto) 2.1, Baso % (Auto) 0.4, Gran # 6.22, Lymph # (Auto) 3.5 H, [place] # (Auto) 0.8 H, Eos # (Auto) 0.2, Baso # (Auto) 0.04 10/11/18 20:28: Alcohol, Quantitative < 10 10/11/18 20:28: Sodium 138, Potassium 3.9, Chloride 102, Carbon Dioxide 25, Anion Gap 15, BUN 18, Creatinine 0.6 L, Est GFR ( Amer) > 60, Est GFR (Non-Af Amer) > 60, Random Glucose 233 H, Calcium 9.9, Total Bilirubin 0.5, AST 49, ALT 43, Alkaline Phosphatase 76, Total Protein 7.4, Albumin 4.3, Globulin 3.0, Albumin/Globulin Ratio 1.4 10/11/18 20:28: Salicylates < 1 L, Acetaminophen < 10.0 L 10/11/18 20:19: Urine Color Yellow, Urine Appearance Clear, Urine pH 6.0, Ur Specific [place] >= 1.030, Urine Protein Negative, Urine Glucose (UA) 500 H, Urine Ketones Negative, Urine Blood Negative, Urine Nitrate Negative, Urine Bilirubin Negative, Urine Urobilinogen 0.2, Ur Leukocyte Esterase Negative 10/11/18 20:19: Urine Opiates Screen Negative, Urine Methadone Screen Negative, Ur Barbiturates Screen Negative, Ur Phencyclidine Scrn Negative, Ur Amphetamines Screen Negative, U Benzodiazepines Scrn Negative, U Oth Cocaine Metabols Negative, U Cannabinoids Screen Negative Vital Signs Temp Pulse Pulse Resp BP Pulse Ox 10/13/18 08:43 63 120/71 10/13/18 08:42 63 120/71 10/13/18 07:08 98.0 F 63 20 120/71 10/12/18 17:55 60 107/70 10/12/18 16:00 60 107/70 10/12/18 09:08 87 109/66 10/12/18 09:04 84 109/66 10/12/18 07:26 97.8 F 84 20 109/66 10/12/18 01:36 65 18 10/11/18 23:17 80 18 123/56 L 100 10/11/18 21:14 61 18 133/72 100 10/11/18 19:54 98.1 F 75 18 138/80 100 Temp Pulse Resp BP Pulse Ox 98.7 F 76 20 109/69 100 10/14/18 07:26 10/14/18 10:07 10/14/18 07:26 10/14/18 10:07 10/11/18 23:17 Laboratory Results - last 24 hr 10/14/18 10/14/18 10/15/18 16:29 21:25 07:40 POC Glucose (mg/dL) 235 H 216 H 144 H DSM 5 Symptoms Update: Short the patient is a 53-year-old male, recent stroke in July 2018, patient has paralysis of the left side of his body, patient is wheelchair-bound, patient was brought in by his girlfriend after patient was verbalizing thoughts of killing himself by gunshot. Obviously patient required further evaluation and stabilization and medications initiation and titration. Patient presented with some improvements of his hygiene, patient still appears to be depressed, was tearful about his previous life and history of working for 12 hours a day, patient feels sad that he cannot provide for his family right now. pt was seen by PT, recommended arm sling, pt c/o pain in his arm. phone conference call supposed to take place with family to make final disposition plan. visual hallucinations are better. Patient denied thoughts of killing himself or others today. As per staff patient preferred to be in his room, patient is disengaged, at times could be abusive towards staff, cursing. So far patient tolerates medications well, no side effects observed or reported, aims 0, no EPS. Impression: DSM 5 Diagnosis: Rule out major depressive disorder Rule out mood disorder due to general medical condition Medication Change: Yes (nortriptillin increased 10/19/18, patient does not want antipsychotic meds) Medical Record Reviewed: Yes Consults ordered or reviewed: Medical consult appreciated Physical therapy consult appreciated Mental Status Examination - Cognitive Function Orientation: Person, Place, Situation, Time Memory: Intact Attention: WNL Concentration: Poor Association: WNL Fund of Knowledge: Poor - Mood Mood: Depressed (I have no hope), Anxious - Affect Affect: Flat - Speech Speech: Soft - Formal Thought Process Formal Thought Process: Hallucinations ("Trains and cars are coming on me") - Suicidal Ideation Suicidal Ideation: No - Homicidal Ideation Homicidal Ideation: No Goal/Treatment Plan - Goal/Treatment Plan Need for Continued Stay: Remain at risks for inpatient hospitalization, Severe depression anxiety, Discharge may exacerbated symptoms, Severe functional impairment Progress Toward Problem(s) and Goals/Treatment Plan: Milieu/structure/supportive therapy Medical consult appreciated, see medical team note for more detailed info Physical therapy consult appreciated SW consultation for discharge plan and social issues Med management Amitriptyline 75 mg at the nighttime October 19, 2018 Depakote 500 mg twice a day for mood stabilization We will consider antipsychotic medication but patient refused to be on it As needed medications Family involvement Follow up on labs Will monitor closely Pt was educated about risk/benefits and alternatives of medications, coping strategies (safety plan, suicide prevention), relapse prevention, importance of follow up with psychiatrist and therapist, stay away from drugs/alcohol/smoking Estimated Date of D/C: 10/22/18
[2018-10-21] MEDS: Insulin Detemir 100 units/ml Vial (Levemir) SC SCH (21:48)
[2018-10-22] MEDS: Pantoprazole 40 mg EC Tab PO SCH (06:47)
[2018-10-22] MEDS: Insulin Reg-MEDIUM-Coverage SC SCH ×4 (08:43→21:31)
[2018-10-22] MEDS: Enoxaparin 30 mg Syringe SC SCH (08:44)
[2018-10-22] MEDS: Valproic Acid 250 mg/5 ml UD Cup PO SCH ×2 (08:45→17:17)
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
[2018-10-22] MEDS: Insulin Detemir 100 units/ml Vial (Levemir) SC SCH (21:32)
[2018-10-23] MEDS: Pantoprazole 40 mg EC Tab PO SCH (09:00)
[2018-10-23] MEDS: Valproic Acid 250 mg/5 ml UD Cup PO SCH ×2 (09:02→17:30)
[2018-10-23] MEDS: Enoxaparin 30 mg Syringe SC SCH ×3 (09:05→10:20)
[2018-10-23] MEDS: Insulin Reg-MEDIUM-Coverage SC SCH ×4 (09:07→21:40)
--- NOTE | 2018-10-23 09:54 | PCM.PYCHPN ---
Psychiatric Progress Note - Psychiatric Progress Note Patient seen today, length of contact: 30 minutes Problems Identified/Issues Discussed: Patient is a 53-year-old male who was admitted after verbalizing thoughts to shoot himself, his depression related to immobility s/p recent stro ke in July 2018. I reviewed recent notes and met with patient at bedside again. Patient continues to be depressed but describes his mood as "all right for the most part". Feels more hopeful than hopeless. His affect remains constricted with improved reactivity since our interviews last weekend. Patient's thought process is coherent and goal directed. Alert and oriented x3. Patient reports that he still has visual hallucinations of car headlights heading toward him. He also sees spiders on the an. He tells me that he experiences these hallucinations constantly and denies any improvement since admission. Patient denies auditory hallucinations. Patient is tolerating his medications, denies any new discomfort or pain and reports that he is comfortable. Staff have noted that he seems a little brighter, more reactive and has been engaging in group activities more. Diagnostic Results: Rule out major depressive disorder Rule out mood disorder due to general medical condition Medication Change: Yes (notrtiptilling 100mg hs, sonata added) Medical Record Reviewed: Yes Mental Status Examination - Cognitive Function Orientation: Person, Place, Situation, Time Memory: Intact Attention: WNL Concentration: Poor Association: WNL Fund of Knowledge: Poor - Mood Mood: Depressed (I have no hope), Anxious - Affect Affect: Flat - Speech Speech: Soft - Formal Thought Process Formal Thought Process: Hallucinations ("Trains and cars are coming on me") - Suicidal Ideation Suicidal Ideation: No - Homicidal Ideation Homicidal Ideation: No Goal/Treatment Plan - Goal/Treatment Plan Need for Continued Stay: Remain at risks for inpatient hospitalization, Severe depression anxiety, Discharge may exacerbated symptoms, Severe functional impairment Progress Toward Problem(s) and Goals/Treatment Plan: * c/w current tx and plan * Vitals reviewed and noted below: Selected Entries 10/23/18 07:23 Temperature 97.9 F Pulse Rate 80 Respiratory 20 Rate Blood Pressure 114/70 * No new weekend lab results thus far. Estimated Date of D/C: 10/26/18
--- NOTE | 2018-10-23 13:48 | PCM.FALL ---
<Ree Holley - Last Filed: 10/23/18 13:36> Post Fall Progress Note - Post Fall Fall Date: 10/23/18 Fall Time: 13:30 Description of Fall: [facility] Note: Patient has Hx of CVA with residual L sided hemiparesis who was found on the floor by his roommate. There were a wheel chair next to his bed. Patient reports he attempted to transfer from bed to wheelchair on his own. The fall was unwitnessed and patient reports he hit his head 2 times, but there were no bruises, abrasions or bleeding noted on physical exam. Patient is on Plavix, Lovenox and ASA. Vital signs were within normal limits and stable. Patient was able to move R side UE and LE without any pain or new weakness. He denies chest pain, shortness of breath, nausea/vomiting/diarrhea, fever/chills, pain or new weakness. - Post Fall Exam Vital Sign: Temp Pulse Resp BP Pulse Ox 97.9 F 80 20 114/72 100 10/23/18 07:23 10/23/18 09:02 10/23/18 07:23 10/23/18 09:03 10/11/18 23:17 Skull Exam: Negative for: Scalp wound, Scalp hematoma, Scalp depression, Ridge in skull Eye Exam: Positive for: Pupils equal, Pupils reactive Ear Exam: Negative for: Discharge, Bleeding Nose Exam: Negative for: Discharge, Bleeding Skin Exam: Negative for: Colour, Lacerations, Grazes, Bruising Mouth Exam: Negative for: Tongue bitten, Teeth dislodge Neck Exam: Negative for: Tenderness, Tingling, Weakness Spinal Exam: Negative for: Tenderness, Tingling, Weakness Chest Exam: Negative for: Difficulty breathing, Tenderness in collar bones, Tenderness in ribs Abdomen Exam: Negative for: Tenderness Pelvic Exam: Negative for: Tenderness, Hematuria Arm Exam: Negative for: Deformity, Alteration in range of movement Leg Exam: Negative for: Deformity, Alteration in range of movement Impression/Plan: Plan: Order CT Head Patient was educated on not to transfer without assistance. Discussed with psychiatry team who was at bedside. Jorge Holley PGY3 <Navi Conway - Last Filed: 10/23/18 13:58> Post Fall Progress Note - Post Fall Exam Vital Sign: Temp Pulse Resp BP Pulse Ox 97.9 F 80 20 114/72 100 10/23/18 07:23 10/23/18 09:02 10/23/18 07:23 10/23/18 09:03 10/11/18 23:17 Attending/Attestation - Attestation I have reviewed all pertinent clinical information, including history, physical exam and plan: Yes
--- NOTE | 2018-10-23 15:25 | CT ---
Date of service: 10/23/2018 PROCEDURE: CT HEAD WITHOUT CONTRAST. HISTORY: s/p fall COMPARISON: 08/06/2018 TECHNIQUE: Axial computed tomography images were obtained through the head/brain without intravenous contrast. Radiation dose: Total exam DLP = 933.19 mGy-cm. This CT exam was performed using one or more of the following dose reduction techniques: Automated exposure control, adjustment of the mA and/or kV according to patient size, and/or use of iterative reconstruction technique. FINDINGS: HEMORRHAGE: No intracranial hemorrhage. BRAIN: Extensive right frontotemporoparietal encephalomalacia in the region of previously a stab list MCA distribution infarct. There is some gyriform high attenuation seen in the right temporoparietal region consistent with laminar necrosis. There is remote ischemic change seen in the right lentiform nucleus extending to the lombardi radiata. VENTRICLES: No hydrocephalus. Previously noted mass effect with midline shift towards the left has resolved. Mild ex vacuo dilatation of the temporal horn of the right lateral ventricle and atrium of the right lateral ventricle. CALVARIUM: Unremarkable. PARANASAL SINUSES: Unremarkable as visualized. No significant inflammatory changes. MASTOID AIR CELLS: Unremarkable as visualized. No inflammatory changes. OTHER FINDINGS: None. IMPRESSION: No acute intracranial hemorrhage. Old right MCA distribution infarct. Resolved mass effect/midline shift..
[2018-10-23] MEDS: Insulin Detemir 100 units/ml Vial (Levemir) SC SCH (22:14)
--- NOTE | 2018-10-24 09:52 | PCM.PYCHPN ---
Psychiatric Progress Note - Psychiatric Progress Note Patient seen today, length of contact: 30 minutes Problems Identified/Issues Discussed: Patient is a 53-year-old male who was admitted after verbalizing thoughts to shoot himself, his depression related to immobility s/p recent stro ke in July 2018. I reviewed recent notes and met with patient at bedside again. Patient continues to be depressed but describes his mood as "all right for the most part". Feels more hopeful than hopeless. His affect remains constricted with improved reactivity since our interviews last weekend. Patient's thought process remains coherent and goal directed. Alert and oriented x3. Patient remains depressed and told staff about wishes and passive SI over the weekend. At this time he denies any new concerns except for difficulty falling asleep last night. Specifically denies dizziness, TERRY, or other discomfort. He is s/p fall while trying to transfer himself from wheelchair to bed on Thursday afternoon. Patient hit his head during this fall. [facility] was called. was notified, CT scan ordered and vitals noted to be stable. He remains on a 1:1. Diagnostic Results: Rule out major depressive disorder Rule out mood disorder due to general medical condition Medication Change: Yes (notrtiptilling 100mg hs, sonata added) Medical Record Reviewed: Yes Mental Status Examination - Cognitive Function Orientation: Person, Place, Situation, Time Memory: Intact Attention: WNL Concentration: Poor Association: WNL Fund of Knowledge: Poor - Mood Mood: Depressed (I have no hope), Anxious - Affect Affect: Flat - Speech Speech: Soft - Formal Thought Process Formal Thought Process: Hallucinations ("Trains and cars are coming on me") - Suicidal Ideation Suicidal Ideation: No - Homicidal Ideation Homicidal Ideation: No Goal/Treatment Plan - Goal/Treatment Plan Need for Continued Stay: Remain at risks for inpatient hospitalization, Severe depression anxiety, Discharge may exacerbated symptoms, Severe functional impairment Progress Toward Problem(s) and Goals/Treatment Plan: * c/w current tx and plan * Appreciate f/u by Dr. Holley on 10/23/18 s/p fall, patient educated not to attempt transfer by himself to bed. No bruises, abrasions or bleeding noted on physical exam. Head CT 10/23/18: no acute intracranial hemorrhage. * Vitals reviewed and noted below: Selected Entries 0110/23/18 10/23/18 07:23 15:41 17:30 Temperature 97.9 F Pulse Rate 80 85 85 Respiratory 20 Rate Blood Pressure 114/70 109/64 109/64 * No new weekend lab results thus far. Estimated Date of D/C: 10/26/18
[2018-10-24] MEDS: Insulin Reg-MEDIUM-Coverage SC SCH ×4 (10:10→22:01)
[2018-10-24] MEDS: Pantoprazole 40 mg EC Tab PO SCH (10:11)
[2018-10-24] MEDS: Enoxaparin 30 mg Syringe SC SCH (10:11)
[2018-10-24] MEDS: Valproic Acid 250 mg/5 ml UD Cup PO SCH ×2 (10:16→16:35)
[2018-10-24] MEDS: Insulin Detemir 100 units/ml Vial (Levemir) SC SCH (22:09)
[2018-10-25] MEDS: Pantoprazole 40 mg EC Tab PO SCH (06:15)
[2018-10-25] MEDS: Valproic Acid 250 mg/5 ml UD Cup PO SCH ×2 (08:35→17:34)
[2018-10-25] MEDS: Insulin Reg-MEDIUM-Coverage SC SCH ×4 (08:41→21:32)
[2018-10-25] MEDS: Enoxaparin 30 mg Syringe SC SCH (13:12)
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
[2018-10-25] MEDS: Insulin Detemir 100 units/ml Vial (Levemir) SC SCH (21:34)
[2018-10-26] MEDS: Pantoprazole 40 mg EC Tab PO SCH (06:29)
[2018-10-26] MEDS: Enoxaparin 30 mg Syringe SC SCH (08:51)
[2018-10-26] MEDS: Valproic Acid 250 mg/5 ml UD Cup PO SCH ×2 (08:51→17:21)
[2018-10-26] MEDS: Insulin Reg-MEDIUM-Coverage SC SCH ×4 (09:16→22:12)
--- NOTE | 2018-10-26 14:55 | PCM.PYCHPN ---
Psychiatric Progress Note - Psychiatric Progress Note Patient seen today, length of contact: 30 minutes Patient Chief Complaint: "I slept better, I want to become better, I want to help physical therapy" Problems Identified/Issues Discussed: Suicide/ homicide prevention, past psychiatric h/o, current psychiatric symptoms, medical problems, risk/benefits and alternatives of medications, medications compliance, coping strategies, substance abuse h/o, relapse prevention, importance of follow up with psychiatrist and therapist, discharge plan. Medical Problems: Multiple medical issues please see medical team notes for more detailed information Diagnostic Results: 10/11/18 20:28 10/11/18 20:28 Lab Results 10/12/18 20:55: POC Glucose (mg/dL) 202 H 10/12/18 16:28: POC Glucose (mg/dL) 103 10/12/18 11:18: POC Glucose (mg/dL) 227 H 10/12/18 07:19: POC Glucose (mg/dL) 235 H 10/12/18 06:15: RPR Nonreactive 10/12/18 06:15: TSH 3rd Generation 3.33 10/12/18 06:15: Fasting Glucose 254 H, Triglycerides 154, Cholesterol 132, LDL Cholesterol Direct 58, HDL Cholesterol 35 10/12/18 01:06: POC Glucose (mg/dL) 232 H 10/11/18 20:28: WBC 10.7, RBC 4.66, Hgb 12.6 L, Hct 38.9 L, MCV 83.5, MCH 27.0, MCHC 32.4, RDW 15.7 H, Plt Count 284, MPV 9.7, Gran % 58.2, Lymph % (Auto) 32.2, [place] % (Auto) 7.1 H, Eos % (Auto) 2.1, Baso % (Auto) 0.4, Gran # 6.22, Lymph # (Auto) 3.5 H, [place] # (Auto) 0.8 H, Eos # (Auto) 0.2, Baso # (Auto) 0.04 10/11/18 20:28: Alcohol, Quantitative < 10 10/11/18 20:28: Sodium 138, Potassium 3.9, Chloride 102, Carbon Dioxide 25, Anion Gap 15, BUN 18, Creatinine 0.6 L, Est GFR ( Amer) > 60, Est GFR (Non-Af Amer) > 60, Random Glucose 233 H, Calcium 9.9, Total Bilirubin 0.5, AST 49, ALT 43, Alkaline Phosphatase 76, Total Protein 7.4, Albumin 4.3, Globulin 3.0, Albumin/Globulin Ratio 1.4 10/11/18 20:28: Salicylates < 1 L, Acetaminophen < 10.0 L 10/11/18 20:19: Urine Color Yellow, Urine Appearance Clear, Urine pH 6.0, Ur Specific [place] >= 1.030, Urine Protein Negative, Urine Glucose (UA) 500 H, Urine Ketones Negative, Urine Blood Negative, Urine Nitrate Negative, Urine Bilirubin Negative, Urine Urobilinogen 0.2, Ur Leukocyte Esterase Negative 10/11/18 20:19: Urine Opiates Screen Negative, Urine Methadone Screen Negative, Ur Barbiturates Screen Negative, Ur Phencyclidine Scrn Negative, Ur Amphetamines Screen Negative, U Benzodiazepines Scrn Negative, U Oth Cocaine Metabols Negative, U Cannabinoids Screen Negative Vital Signs Temp Pulse Pulse Resp BP Pulse Ox 10/13/18 08:43 63 120/71 10/13/18 08:42 63 120/71 10/13/18 07:08 98.0 F 63 20 120/71 10/12/18 17:55 60 107/70 10/12/18 16:00 60 107/70 10/12/18 09:08 87 109/66 10/12/18 09:04 84 109/66 10/12/18 07:26 97.8 F 84 20 109/66 10/12/18 01:36 65 18 10/11/18 23:17 80 18 123/56 L 100 10/11/18 21:14 61 18 133/72 100 10/11/18 19:54 98.1 F 75 18 138/80 100 Temp Pulse Resp BP Pulse Ox 98.7 F 76 20 109/69 100 10/14/18 07:26 10/14/18 10:07 10/14/18 07:26 10/14/18 10:07 10/11/18 23:17 Laboratory Results - last 24 hr 10/14/18 10/14/18 10/15/18 16:29 21:25 07:40 POC Glucose (mg/dL) 235 H 216 H 144 H Abnormal Lab Results 10/25/18 10/25/18 10/25/18 11:00 17:05 20:53 POC Glucose (mg/dL) 215 H 166 H 238 H Valproic Acid 10/26/18 10/26/18 10/26/18 07:28 07:45 11:20 POC Glucose (mg/dL) 103 260 H Valproic Acid 42 L DSM 5 Symptoms Update: Short the patient is a 53-year-old male, recent stroke in July 2018, patient has paralysis of the left side of his body, patient is wheelchair-bound, patient was brought in by his girlfriend after patient was verbalizing thoughts of killing himself by gunshot. Obviously patient required further evaluation and stabilization and medications initiation and titration. Patient was seen today in his room with mental health worker, patient is on one-to-one observation because patient had restless behavior and patient fell over the weekend, so far there is no restless behavior observed, patient's symptoms are improving, there is no need to continue one-to-one observation, as per staff patient is calmer, less abusive, more hopeful. Presented with some improvements of his hygiene, patient still appears to be depressed, but less irritable, less angry, pt reported after gerrychair was provided "I feel more comfortable", pt denied any thoughts of harming himself or others, still has visual hallucinations, "it is not bothering me that much, probably it is subconscious", patient reported saying trains or cars moving towards him. Patient reported that he slept well on Ambien, patient denied any side effects. So far patient tolerates medications well, no side effects observed or reported, aims 0, no EPS. Impression: DSM 5 Diagnosis: Rule out major depressive disorder Rule out mood disorder due to general medical condition Physical therapy recommended subacute rehab Medication Change: Yes (notrtiptilling increased to 150mg hs, Ambien added 10/25/18) Medical Record Reviewed: Yes Mental Status Examination - Cognitive Function Orientation: Person, Place, Situation, Time Memory: Intact Attention: WNL Concentration: Poor Association: WNL Fund of Knowledge: Poor - Mood Mood: Depressed ("I would feel better, improve"), Anxious - Affect Affect: Flat - Speech Speech: Soft - Formal Thought Process Formal Thought Process: Hallucinations (Still complains of a lot of cars and trains moving towards him) - Suicidal Ideation Suicidal Ideation: Yes - Homicidal Ideation Homicidal Ideation: No Goal/Treatment Plan - Goal/Treatment Plan Need for Continued Stay: Remain at risks for inpatient hospitalization, Severe depression anxiety, Discharge may exacerbated symptoms, Severe functional impairment Progress Toward Problem(s) and Goals/Treatment Plan: Milieu/structure/supportive therapy Medical consult appreciated, see medical team note for more detailed info Physical therapy consult appreciated SW consultation for discharge plan and social issues Med management Amitriptyline 150 mg at the nighttime October 22, 2018 Depakote 500 mg twice a day for mood stabilization Depakote level 42 10/26/18 We will consider antipsychotic medication but patient refused to be on it Ambien 5 mg at the nighttime as needed for insomnia As needed medications Family involvement Follow up on labs Will monitor closely Pt was educated about risk/benefits and alternatives of medications, coping strategies (safety plan, suicide prevention), relapse prevention, importance of follow up with psychiatrist and therapist, stay away from drugs/alcohol/smoking Family meeting was requested on October 27, 2018 Estimated Date of D/C: 10/27/18
[2018-10-26] MEDS: Insulin Detemir 100 units/ml Vial (Levemir) SC SCH (22:17)
[2018-10-27] MEDS: Pantoprazole 40 mg EC Tab PO SCH (06:36)
[2018-10-27] MEDS: Enoxaparin 30 mg Syringe SC SCH (09:41)
[2018-10-27] MEDS: Valproic Acid 250 mg/5 ml UD Cup PO SCH ×3 (09:42→21:13)
[2018-10-27] MEDS: Insulin Reg-MEDIUM-Coverage SC SCH ×4 (09:48→22:45)
--- NOTE | 2018-10-27 14:55 | PCM.PYCHPN ---
Psychiatric Progress Note - Psychiatric Progress Note Patient seen today, length of contact: 30 minutes Patient Chief Complaint: "I feel better" Problems Identified/Issues Discussed: Suicide/ homicide prevention, past psychiatric h/o, current psychiatric symptoms, medical problems, risk/benefits and alternatives of medications, medications compliance, coping strategies, substance abuse h/o, relapse prevention, importance of follow up with psychiatrist and therapist, discharge plan. Medical Problems: Multiple medical issues please see medical team notes for more detailed information Diagnostic Results: 10/11/18 20:28 10/11/18 20:28 Lab Results 10/12/18 20:55: POC Glucose (mg/dL) 202 H 10/12/18 16:28: POC Glucose (mg/dL) 103 10/12/18 11:18: POC Glucose (mg/dL) 227 H 10/12/18 07:19: POC Glucose (mg/dL) 235 H 10/12/18 06:15: RPR Nonreactive 10/12/18 06:15: TSH 3rd Generation 3.33 10/12/18 06:15: Fasting Glucose 254 H, Triglycerides 154, Cholesterol 132, LDL Cholesterol Direct 58, HDL Cholesterol 35 10/12/18 01:06: POC Glucose (mg/dL) 232 H 10/11/18 20:28: WBC 10.7, RBC 4.66, Hgb 12.6 L, Hct 38.9 L, MCV 83.5, MCH 27.0, MCHC 32.4, RDW 15.7 H, Plt Count 284, MPV 9.7, Gran % 58.2, Lymph % (Auto) 32.2, [place] % (Auto) 7.1 H, Eos % (Auto) 2.1, Baso % (Auto) 0.4, Gran # 6.22, Lymph # (Auto) 3.5 H, [place] # (Auto) 0.8 H, Eos # (Auto) 0.2, Baso # (Auto) 0.04 10/11/18 20:28: Alcohol, Quantitative < 10 10/11/18 20:28: Sodium 138, Potassium 3.9, Chloride 102, Carbon Dioxide 25, Anion Gap 15, BUN 18, Creatinine 0.6 L, Est GFR ( Amer) > 60, Est GFR (Non-Af Amer) > 60, Random Glucose 233 H, Calcium 9.9, Total Bilirubin 0.5, AST 49, ALT 43, Alkaline Phosphatase 76, Total Protein 7.4, Albumin 4.3, Globulin 3.0, Albumin/Globulin Ratio 1.4 10/11/18 20:28: Salicylates < 1 L, Acetaminophen < 10.0 L 10/11/18 20:19: Urine Color Yellow, Urine Appearance Clear, Urine pH 6.0, Ur Specific [place] >= 1.030, Urine Protein Negative, Urine Glucose (UA) 500 H, Urine Ketones Negative, Urine Blood Negative, Urine Nitrate Negative, Urine Bilirubin Negative, Urine Urobilinogen 0.2, Ur Leukocyte Esterase Negative 10/11/18 20:19: Urine Opiates Screen Negative, Urine Methadone Screen Negative, Ur Barbiturates Screen Negative, Ur Phencyclidine Scrn Negative, Ur Amphetamines Screen Negative, U Benzodiazepines Scrn Negative, U Oth Cocaine Metabols Negative, U Cannabinoids Screen Negative Vital Signs Temp Pulse Pulse Resp BP Pulse Ox 10/13/18 08:43 63 120/71 10/13/18 08:42 63 120/71 10/13/18 07:08 98.0 F 63 20 120/71 10/12/18 17:55 60 107/70 10/12/18 16:00 60 107/70 10/12/18 09:08 87 109/66 10/12/18 09:04 84 109/66 10/12/18 07:26 97.8 F 84 20 109/66 10/12/18 01:36 65 18 10/11/18 23:17 80 18 123/56 L 100 10/11/18 21:14 61 18 133/72 100 10/11/18 19:54 98.1 F 75 18 138/80 100 Temp Pulse Resp BP Pulse Ox 98.7 F 76 20 109/69 100 10/14/18 07:26 10/14/18 10:07 10/14/18 07:26 10/14/18 10:07 10/11/18 23:17 Laboratory Results - last 24 hr 10/14/18 10/14/18 10/15/18 16:29 21:25 07:40 POC Glucose (mg/dL) 235 H 216 H 144 H Abnormal Lab Results 10/25/18 10/25/18 10/25/18 11:00 17:05 20:53 POC Glucose (mg/dL) 215 H 166 H 238 H Valproic Acid 10/26/18 10/26/18 10/26/18 07:28 07:45 11:20 POC Glucose (mg/dL) 103 260 H Valproic Acid 42 L DSM 5 Symptoms Update: Short the patient is a 53-year-old male, recent stroke in July 2018, patient has paralysis of the left side of his body, patient is wheelchair-bound, patient was brought in by his girlfriend after patient was verbalizing thoughts of killing himself by gunshot. Obviously patient required further evaluation and stabilization and medications initiation and titration. Patient was seen at the treatment team meeting, patient is off one-to-one observation, no agitation, no aggression, but patient has attention seeking behavior, not asking to use the bathroom, needs constant change of his diapers. Presented with some improvements of his hygiene, patient still appears to be depressed, but less irritable, less angry, less abusive towards staff. still has visual hallucinations, "it is not bothering me that much, probably it is subconscious", patient reported saying trains or cars moving towards him. Patient reported that he has future oriented plans, "I want to go to rehab, I want to become better, stronger." Patient reported that he slept well on Ambien, patient denied any side effects. So far patient tolerates medications well, no side effects observed or reported, aims 0, no EPS. Impression: DSM 5 Diagnosis: Rule out major depressive disorder Rule out mood disorder due to general medical condition Physical therapy recommended subacute rehab Medication Change: No Medical Record Reviewed: Yes Mental Status Examination - Cognitive Function Orientation: Person, Place, Situation, Time Memory: Intact Attention: WNL Concentration: Poor Association: WNL Fund of Knowledge: Poor - Mood Mood: Depressed ("I would feel better, improve"), Anxious - Affect Affect: Flat - Speech Speech: Soft - Formal Thought Process Formal Thought Process: Hallucinations (Still complains of a lot of cars and trains moving towards him) - Suicidal Ideation Suicidal Ideation: Yes - Homicidal Ideation Homicidal Ideation: No Goal/Treatment Plan - Goal/Treatment Plan Need for Continued Stay: Remain at risks for inpatient hospitalization, Severe depression anxiety, Discharge may exacerbated symptoms, Severe functional impai rment Progress Toward Problem(s) and Goals/Treatment Plan: Milieu/structure/supportive therapy Medical consult appreciated, see medical team note for more detailed info Physical therapy consult appreciated consultation for discharge plan and social issues Med management Amitriptyline 150 mg at the nighttime October 22, 2018 Depakote 500 mg twice a day for mood stabilization Depakote level 42 10/26/18 We will consider antipsychotic medication but patient refused to be on it Ambien 5 mg at the nighttime as needed for insomnia As needed medications Family involvement Follow up on labs Will monitor closely Pt was educated about risk/benefits and alternatives of medications, coping strategies (safety plan, suicide prevention), relapse prevention, importance of follow up with psychiatrist and therapist, stay away from drugs/alcohol/smoking Family meeting cancelled, because most likely pt will go to [facility]. Estimated Date of D/C: 10/27/18
[2018-10-27] MEDS: Insulin Detemir 100 units/ml Vial (Levemir) SC SCH (21:14)
[2018-10-28] MEDS: Insulin Reg-MEDIUM-Coverage SC SCH ×4 (08:29→21:24)
[2018-10-28] MEDS: Enoxaparin 30 mg Syringe SC SCH (08:29)
[2018-10-28] MEDS: Valproic Acid 250 mg/5 ml UD Cup PO SCH ×3 (08:31→21:27)
[2018-10-28] MEDS: Pantoprazole 40 mg EC Tab PO SCH (08:32)
--- NOTE | 2018-10-28 14:55 | PCM.PYCHPN ---
Psychiatric Progress Note - Psychiatric Progress Note Patient seen today, length of contact: 30 minutes Patient Chief Complaint: "How do I feel? How would you feel? I am happy...", pt smirked, seems to be sarcastic Problems Identified/Issues Discussed: Suicide/ homicide prevention, past psychiatric h/o, current psychiatric symptoms, medical problems, risk/benefits and alternatives of medications, medications compliance, coping strategies, substance abuse h/o, relapse prevention, importance of follow up with psychiatrist and therapist, discharge plan. Medical Problems: Multiple medical issues please see medical team notes for more detailed information Diagnostic Results: 10/11/18 20:28 10/11/18 20:28 Lab Results 10/12/18 20:55: POC Glucose (mg/dL) 202 H 10/12/18 16:28: POC Glucose (mg/dL) 103 10/12/18 11:18: POC Glucose (mg/dL) 227 H 10/12/18 07:19: POC Glucose (mg/dL) 235 H 10/12/18 06:15: RPR Nonreactive 10/12/18 06:15: TSH 3rd Generation 3.33 10/12/18 06:15: Fasting Glucose 254 H, Triglycerides 154, Cholesterol 132, LDL Cholesterol Direct 58, HDL Cholesterol 35 10/12/18 01:06: POC Glucose (mg/dL) 232 H 10/11/18 20:28: WBC 10.7, RBC 4.66, Hgb 12.6 L, Hct 38.9 L, MCV 83.5, MCH 27.0, MCHC 32.4, RDW 15.7 H, Plt Count 284, MPV 9.7, Gran % 58.2, Lymph % (Auto) 32.2, [place] % (Auto) 7.1 H, Eos % (Auto) 2.1, Baso % (Auto) 0.4, Gran # 6.22, Lymph # (Auto) 3.5 H, [place] # (Auto) 0.8 H, Eos # (Auto) 0.2, Baso # (Auto) 0.04 10/11/18 20:28: Alcohol, Quantitative < 10 10/11/18 20:28: Sodium 138, Potassium 3.9, Chloride 102, Carbon Dioxide 25, Anion Gap 15, BUN 18, Creatinine 0.6 L, Est GFR ( Amer) > 60, Est GFR (Non-Af Amer) > 60, Random Glucose 233 H, Calcium 9.9, Total Bilirubin 0.5, AST 49, ALT 43, Alkaline Phosphatase 76, Total Protein 7.4, Albumin 4.3, Globulin 3.0, Albumin/Globulin Ratio 1.4 10/11/18 20:28: Salicylates < 1 L, Acetaminophen < 10.0 L 10/11/18 20:19: Urine Color Yellow, Urine Appearance Clear, Urine pH 6.0, Ur Specific [place] >= 1.030, Urine Protein Negative, Urine Glucose (UA) 500 H, Urine Ketones Negative, Urine Blood Negative, Urine Nitrate Negative, Urine Bilirubin Negative, Urine Urobilinogen 0.2, Ur Leukocyte Esterase Negative 10/11/18 20:19: Urine Opiates Screen Negative, Urine Methadone Screen Negative, Ur Barbiturates Screen Negative, Ur Phencyclidine Scrn Negative, Ur Amphetamines Screen Negative, U Benzodiazepines Scrn Negative, U Oth Cocaine Metabols Negative, U Cannabinoids Screen Negative Vital Signs Temp Pulse Pulse Resp BP Pulse Ox 10/13/18 08:43 63 120/71 10/13/18 08:42 63 120/71 10/13/18 07:08 98.0 F 63 20 120/71 10/12/18 17:55 60 107/70 10/12/18 16:00 60 107/70 10/12/18 09:08 87 109/66 10/12/18 09:04 84 109/66 10/12/18 07:26 97.8 F 84 20 109/66 10/12/18 01:36 65 18 10/11/18 23:17 80 18 123/56 L 100 10/11/18 21:14 61 18 133/72 100 10/11/18 19:54 98.1 F 75 18 138/80 100 Temp Pulse Resp BP Pulse Ox 98.7 F 76 20 109/69 100 10/14/18 07:26 10/14/18 10:07 10/14/18 07:26 10/14/18 10:07 10/11/18 23:17 Laboratory Results - last 24 hr 10/14/18 10/14/18 10/15/18 16:29 21:25 07:40 POC Glucose (mg/dL) 235 H 216 H 144 H Abnormal Lab Results 10/25/18 10/25/18 10/25/18 11:00 17:05 20:53 POC Glucose (mg/dL) 215 H 166 H 238 H Valproic Acid 10/26/18 10/26/18 10/26/18 07:28 07:45 11:20 POC Glucose (mg/dL) 103 260 H Valproic Acid 42 L DSM 5 Symptoms Update: Short the patient is a 53-year-old male, recent stroke in July 2018, patient has paralysis of the left side of his body, patient is wheelchair-bound, patient was brought in by his girlfriend after patient was verbalizing thoughts of killing himself by gunshot. Obviously patient required further evaluation and stabilization and medications initiation and titration. Patient was seen in his room, pt seems to be sarcastic today, said that he feels "happy", but appears to be irritable and annoyed, was brushing this advertising copy writer off, was giving only "yes-no" answers, did not want to talk, yesterday pt was trying to climb off the chair, needs constant redirection. pt reported slept through the night... still has visual hallucinations, "it is not bothering me that much, probably it is subconscious", patient reported saying trains or cars moving towards him. Patient reported that he has future oriented plans, "I want to go to rehab, I want to become better, stronger." Patient reported that he slept well on Ambien, patient denied any side effects. So far patient tolerates medications well, no side effects observed or reported, aims 0, no EPS. Impression: DSM 5 Diagnosis: Rule out major depressive disorder Rule out mood disorder due to general medical condition Physical therapy recommended subacute rehab Medication Change: Yes (elavil increased) Medical Record Reviewed: Yes Consults ordered or reviewed: Medical consult appreciated Physical therapy consult appreciated Mental Status Examination - Cognitive Function Orientation: Person, Place, Situation, Time Memory: Intact Attention: WNL Concentration: Poor Association: WNL Fund of Knowledge: Poor - Mood Mood: Depressed ("How would you feel?, I am perfect..."), Anxious - Affect Affect: Flat - Speech Speech: Soft - Formal Thought Process Formal Thought Process: Hallucinations (Still complains of a lot of cars and trains moving towards him) - Suicidal Ideation Suicidal Ideation: No Plan: denied today - Homicidal Ideation Homicidal Ideation: No Goal/Treatment Plan - Goal/Treatment Plan Need for Continued Stay: Remain at risks for inpatient hospitalization, Severe depression anxiety, Discharge may exacerbated symptoms, Severe functional impairment Progress Toward Problem(s) and Goals/Treatment Plan: Milieu/structure/supportive therapy Medical consult appreciated, see medical team note for more detailed info Physical therapy consult appreciated SW consultation for discharge plan and social issues Med management Amitriptyline 200 mg at the nighttime for depression Depakote 500 mg twice a day for mood stabilization Depakote level 10/26/18 We will consider antipsychotic medication but patient refused to be on it Ambien 5 mg at the nighttime as needed for insomnia As needed medications Family involvement Follow up on labs Will monitor closely Pt was educated about risk/benefits and alternatives of medications, coping strategies (safety plan, suicide prevention), relapse prevention, importance of follow up with psychiatrist and therapist, stay away from drugs/alcohol/smoking Family meeting cancelled, because most likely pt will go to [facility]. Estimated Date of D/C: 11/02/18
[2018-10-28] MEDS: Insulin Detemir 100 units/ml Vial (Levemir) SC SCH (21:26)
[2018-10-29] MEDS: Pantoprazole 40 mg EC Tab PO SCH (06:52)
[2018-10-29] MEDS: Insulin Reg-MEDIUM-Coverage SC SCH ×4 (08:50→21:20)
[2018-10-29] MEDS: Valproic Acid 250 mg/5 ml UD Cup PO SCH ×3 (09:04→21:50)
[2018-10-29] MEDS: Enoxaparin 30 mg Syringe SC SCH (09:05)
--- NOTE | 2018-10-29 13:44 | PCM.PYCHPN ---
Psychiatric Progress Note - Psychiatric Progress Note Patient seen today, length of contact: 30 minutes Patient Chief Complaint: "I am alright" Problems Identified/Issues Discussed: Suicide/ homicide prevention, past psychiatric h/o, current psychiatric symptoms, medical problems, risk/benefits and alternatives of medications, medications compliance, coping strategies, substance abuse h/o, relapse prevention, importance of follow up with psychiatrist and therapist, discharge plan. Medical Problems: Multiple medical issues please see medical team notes for more detailed information Diagnostic Results: 10/11/18 20:28 10/11/18 20:28 Lab Results 10/12/18 20:55: POC Glucose (mg/dL) 202 H 10/12/18 16:28: POC Glucose (mg/dL) 103 10/12/18 11:18: POC Glucose (mg/dL) 227 H 10/12/18 07:19: POC Glucose (mg/dL) 235 H 10/12/18 06:15: RPR Nonreactive 10/12/18 06:15: TSH 3rd Generation 3.33 10/12/18 06:15: Fasting Glucose 254 H, Triglycerides 154, Cholesterol 132, LDL Cholesterol Direct 58, HDL Cholesterol 35 10/12/18 01:06: POC Glucose (mg/dL) 232 H 10/11/18 20:28: WBC 10.7, RBC 4.66, Hgb 12.6 L, Hct 38.9 L, MCV 83.5, MCH 27.0, MCHC 32.4, RDW 15.7 H, Plt Count 284, MPV 9.7, Gran % 58.2, Lymph % (Auto) 32.2, [place] % (Auto) 7.1 H, Eos % (Auto) 2.1, Baso % (Auto) 0.4, Gran # 6.22, Lymph # (Auto) 3.5 H, [place] # (Auto) 0.8 H, Eos # (Auto) 0.2, Baso # (Auto) 0.04 10/11/18 20:28: Alcohol, Quantitative < 10 10/11/18 20:28: Sodium 138, Potassium 3.9, Chloride 102, Carbon Dioxide 25, Anion Gap 15, BUN 18, Creatinine 0.6 L, Est GFR ( Amer) > 60, Est GFR (Non-Af Amer) > 60, Random Glucose 233 H, Calcium 9.9, Total Bilirubin 0.5, AST 49, ALT 43, Alkaline Phosphatase 76, Total Protein 7.4, Albumin 4.3, Globulin 3.0, Albumin/Globulin Ratio 1.4 10/11/18 20:28: Salicylates < 1 L, Acetaminophen < 10.0 L 10/11/18 20:19: Urine Color Yellow, Urine Appearance Clear, Urine pH 6.0, Ur Specific [place] >= 1.030, Urine Protein Negative, Urine Glucose (UA) 500 H, Urine Ketones Negative, Urine Blood Negative, Urine Nitrate Negative, Urine Bilirubin Negative, Urine Urobilinogen 0.2, Ur Leukocyte Esterase Negative 10/11/18 20:19: Urine Opiates Screen Negative, Urine Methadone Screen Negative, Ur Barbiturates Screen Negative, Ur Phencyclidine Scrn Negative, Ur Amphetamines Screen Negative, U Benzodiazepines Scrn Negative, U Oth Cocaine Metabols Negative, U Cannabinoids Screen Negative Vital Signs Temp Pulse Pulse Resp BP Pulse Ox 10/13/18 08:43 63 120/71 10/13/18 08:42 63 120/71 10/13/18 07:08 98.0 F 63 20 120/71 10/12/18 17:55 60 107/70 10/12/18 16:00 60 107/70 10/12/18 09:08 87 109/66 10/12/18 09:04 84 109/66 10/12/18 07:26 97.8 F 84 20 109/66 10/12/18 01:36 65 18 10/11/18 23:17 80 18 123/56 L 100 10/11/18 21:14 61 18 133/72 100 10/11/18 19:54 98.1 F 75 18 138/80 100 Temp Pulse Resp BP Pulse Ox 98.7 F 76 20 109/69 100 10/14/18 07:26 10/14/18 10:07 10/14/18 07:26 10/14/18 10:07 10/11/18 23:17 Laboratory Results - last 24 hr 10/14/18 10/14/18 10/15/18 16:29 21:25 07:40 POC Glucose (mg/dL) 235 H 216 H 144 H Abnormal Lab Results 10/25/18 10/25/18 10/25/18 11:00 17:05 20:53 POC Glucose (mg/dL) 215 H 166 H 238 H Valproic Acid 10/26/18 10/26/18 10/26/18 07:28 07:45 11:20 POC Glucose (mg/dL) 103 260 H Valproic Acid 42 L DSM 5 Symptoms Update: Short the patient is a 53-year-old male, recent stroke in July 2018, patient has paralysis of the left side of his body, patient is wheelchair-bound, patient was brought in by his girlfriend after patient was verbalizing thoughts of killing himself by gunshot. Obviously patient required further evaluation and stabilization and medications initiation and titration. Patient was seen at the dinning area, pt appeared to be depressed, pt said that he slept well, denied thoughts of harming self or others. pt still irritable and annoyed, has a tendency of brushing this typewriters functional tester off. pt still has tendency of trying to climb off the chair, needs constant redirection. still has visual hallucinations, "it is not bothering me that much", patient reported saying trains or cars moving towards him. Patient reported that he has future oriented plans, "I want to go to rehab, I want to become better, stronger." Patient reported that he slept well on Ambien, patient denied any side effects. So far patient tolerates medications well, no side effects observed or reported, aims 0, no EPS. Impression: DSM 5 Diagnosis: Rule out major depressive disorder Rule out mood disorder due to general medical condition Physical therapy recommended subacute rehab Medication Change: No ( ) Medical Record Reviewed: Yes Mental Status Examination - Cognitive Function Orientation: Person, Place, Situation, Time Memory: Intact Attention: WNL Concentration: Poor Association: WNL Fund of Knowledge: Poor - Mood Mood: Depressed ("How would you feel?, I am perfect..."), Anxious - Affect Affect: Flat - Speech Speech: Soft - Formal Thought Process Formal Thought Process: Hallucinations (Still complains of a lot of cars and trains moving towards him) - Suicidal Ideation Suicidal Ideation: No - Homicidal Ideation Homicidal Ideation: No Goal/Treatment Plan - Goal/Treatment Plan Need for Continued Stay: Remain at risks for inpatient hospitalization, Severe depression anxiety, Discharge may exacerbated symptoms, Severe functional impai rment Progress Toward Problem(s) and Goals/Treatment Plan: Milieu/structure/supportive therapy Medical consult appreciated, see medical team note for more detailed info Physical therapy consult appreciated consultation for discharge plan and social issues Med management Amitriptyline 200 mg at the nighttime for depression Depakote 500 mg twice a day for mood stabilization Depakote level 10/26/18 We will consider antipsychotic medication but patient refused to be on it Ambien 5 mg at the nighttime as needed for insomnia As needed medications Family involvement Follow up on labs Will monitor closely Pt was educated about risk/benefits and alternatives of medications, coping strategies (safety plan, suicide prevention), relapse prevention, importance of follow up with psychiatrist and therapist, stay away from drugs/alcohol/smoking Family meeting cancelled, because most likely pt will go to [facility]. Estimated Date of D/C: 11/02/18
[2018-10-29] MEDS: Insulin Detemir 100 units/ml Vial (Levemir) SC SCH (21:51)
[2018-10-30] MEDS: Pantoprazole 40 mg EC Tab PO SCH ×2 (06:12→06:53)
[2018-10-30] MEDS: Insulin Reg-MEDIUM-Coverage SC SCH ×4 (08:47→21:39)
[2018-10-30] MEDS: Valproic Acid 250 mg/5 ml UD Cup PO SCH ×3 (09:51→21:40)
[2018-10-30] MEDS: Enoxaparin 30 mg Syringe SC SCH (09:52)
--- NOTE | 2018-10-30 14:45 | PCM.PYCHPN ---
Psychiatric Progress Note - Psychiatric Progress Note Patient seen today, length of contact: 30 minutes Patient Chief Complaint: "I want to get better, I want to improve, I want to go to subacute rehab" Problems Identified/Issues Discussed: Suicide/ homicide prevention, past psychiatric h/o, current psychiatric symptoms, medical problems, risk/benefits and alternatives of medications, medications compliance, coping strategies, substance abuse h/o, relapse prevention, importance of follow up with psychiatrist and therapist, discharge plan. Medical Problems: Multiple medical issues please see medical team notes for more detailed information Diagnostic Results: 10/11/18 20:28 10/11/18 20:28 Lab Results 10/12/18 20:55: POC Glucose (mg/dL) 202 H 10/12/18 16:28: POC Glucose (mg/dL) 103 10/12/18 11:18: POC Glucose (mg/dL) 227 H 10/12/18 07:19: POC Glucose (mg/dL) 235 H 10/12/18 06:15: RPR Nonreactive 10/12/18 06:15: TSH 3rd Generation 3.33 10/12/18 06:15: Fasting Glucose 254 H, Triglycerides 154, Cholesterol 132, LDL Cholesterol Direct 58, HDL Cholesterol 35 10/12/18 01:06: POC Glucose (mg/dL) 232 H 10/11/18 20:28: WBC 10.7, RBC 4.66, Hgb 12.6 L, Hct 38.9 L, MCV 83.5, MCH 27.0, MCHC 32.4, RDW 15.7 H, Plt Count 284, MPV 9.7, Gran % 58.2, Lymph % (Auto) 32.2, [place] % (Auto) 7.1 H, Eos % (Auto) 2.1, Baso % (Auto) 0.4, Gran # 6.22, Lymph # (Auto) 3.5 H, [place] # (Auto) 0.8 H, Eos # (Auto) 0.2, Baso # (Auto) 0.04 10/11/18 20:28: Alcohol, Quantitative < 10 10/11/18 20:28: Sodium 138, Potassium 3.9, Chloride 102, Carbon Dioxide 25, Anion Gap 15, BUN 18, Creatinine 0.6 L, Est GFR ( Amer) > 60, Est GFR (Non-Af Amer) > 60, Random Glucose 233 H, Calcium 9.9, Total Bilirubin 0.5, AST 49, ALT 43, Alkaline Phosphatase 76, Total Protein 7.4, Albumin 4.3, Globulin 3.0, Albumin/Globulin Ratio 1.4 10/11/18 20:28: Salicylates < 1 L, Acetaminophen < 10.0 L 10/11/18 20:19: Urine Color Yellow, Urine Appearance Clear, Urine pH 6.0, Ur Specific [place] >= 1.030, Urine Protein Negative, Urine Glucose (UA) 500 H, Urine Ketones Negative, Urine Blood Negative, Urine Nitrate Negative, Urine Bilirubin Negative, Urine Urobilinogen 0.2, Ur Leukocyte Esterase Negative 10/11/18 20:19: Urine Opiates Screen Negative, Urine Methadone Screen Negative, Ur Barbiturates Screen Negative, Ur Phencyclidine Scrn Negative, Ur Amphetamines Screen Negative, U Benzodiazepines Scrn Negative, U Oth Cocaine Metabols Negative, U Cannabinoids Screen Negative Vital Signs Temp Pulse Pulse Resp BP Pulse Ox 10/13/18 08:43 63 120/71 10/13/18 08:42 63 120/71 10/13/18 07:08 98.0 F 63 20 120/71 10/12/18 17:55 60 107/70 10/12/18 16:00 60 107/70 10/12/18 09:08 87 109/66 10/12/18 09:04 84 109/66 10/12/18 07:26 97.8 F 84 20 109/66 10/12/18 01:36 65 18 10/11/18 23:17 80 18 123/56 L 100 10/11/18 21:14 61 18 133/72 100 10/11/18 19:54 98.1 F 75 18 138/80 100 Temp Pulse Resp BP Pulse Ox 98.7 F 76 20 109/69 100 10/14/18 07:26 10/14/18 10:07 10/14/18 07:26 10/14/18 10:07 10/11/18 23:17 Laboratory Results - last 24 hr 10/14/18 10/14/18 10/15/18 16:29 21:25 07:40 POC Glucose (mg/dL) 235 H 216 H 144 H Abnormal Lab Results 10/25/18 10/25/18 10/25/18 11:00 17:05 20:53 POC Glucose (mg/dL) 215 H 166 H 238 H Valproic Acid 10/26/18 10/26/18 10/26/18 07:28 07:45 11:20 POC Glucose (mg/dL) 103 260 H Valproic Acid 42 L DSM 5 Symptoms Update: Short the patient is a 53-year-old male, recent stroke in July 2018, patient has paralysis of the left side of his body, patient is wheelchair-bound, patient was brought in by his girlfriend after patient was verbalizing thoughts of killing himself by gunshot. Obviously patient required further evaluation and stabilization and medications initiation and titration. Patient was seen in his room, pt appeared to be depressed, pt said that he slept well, denied thoughts of harming self or others. pt still irritable and annoyed, has a tendency of brushing this service writer advisor off. pt still has tendency of trying to climb off the chair, needs constant redirection. still has visual hallucinations, "it is not bothering me that much", patient reported saying trains or cars moving towards him. Patient reported that he has future oriented plans, "I want to go to rehab, I want to become better, stronger." Patient reported that he slept well on Ambien, patient denied any side effects. So far patient tolerates medications well, no side effects observed or reported, aims 0, no EPS. Impression: DSM 5 Diagnosis: Rule out major depressive disorder Rule out mood disorder due to general medical condition Physical therapy recommended subacute rehab Medication Change: No ( ) Medical Record Reviewed: Yes Mental Status Examination - Cognitive Function Orientation: Person, Place, Situation, Time Memory: Intact Attention: WNL Concentration: Poor (Somewhat better) Association: WNL Fund of Knowledge: Poor - Mood Mood: Depressed (I am okay) - Affect Affect: Constricted - Speech Speech: Soft - Formal Thought Process Formal Thought Process: Hallucinations (Still complains of a lot of cars and trains moving towards him) - Suicidal Ideation Suicidal Ideation: No - Homicidal Ideation Homicidal Ideation: No Goal/Treatment Plan - Goal/Treatment Plan Need for Continued Stay: Remain at risks for inpatient hospitalization, Severe depression anxiety, Discharge may exacerbated symptoms, Severe functional impairment Progress Toward Problem(s) and Goals/Treatment Plan: Milieu/structure/supportive therapy Medical consult appreciated, see medical team note for more detailed info Physical therapy consult appreciated consultation for discharge plan and social issues Med management Amitriptyline 200 mg at the nighttime for depression Depakote 500 mg twice a day for mood stabilization Depakote level 10/26/18 We will consider antipsychotic medication but patient refused to be on it Ambien 5 mg at the nighttime as needed for insomnia As needed medications Family involvement Follow up on labs Will monitor closely Pt was educated about risk/benefits and alternatives of medications, coping strategies (safety plan, suicide prevention), relapse prevention, importance of follow up with psychiatrist and therapist, stay away from drugs/alcohol/smoking Family meeting cancelled, because most likely pt will go to [facility]. Estimated Date of D/C: 11/02/18
[2018-10-30] MEDS: Insulin Detemir 100 units/ml Vial (Levemir) SC SCH (22:05)
[2018-10-31] MEDS: Pantoprazole 40 mg EC Tab PO SCH (06:44)
[2018-10-31] MEDS: Insulin Reg-MEDIUM-Coverage SC SCH ×4 (08:00→22:50)
[2018-10-31] MEDS: Enoxaparin 30 mg Syringe SC SCH ×2 (08:45→11:34)
[2018-10-31] MEDS: Valproic Acid 250 mg/5 ml UD Cup PO SCH ×3 (09:26→21:39)
[2018-10-31 10:38] LABS: ALB/GLOB RATIO 1.2 (1.1-1.8); ALBUMIN 4.4 g/dL (3.0-4.8); ALT/SGPT 46 U/L (7-56); AST/SGOT 25 U/L (17-59); BLOOD UREA NITROGEN 24 mg/dL (7-21); CALCIUM 9.2 mg/dL (8.4-10.5); GFR NON-AFRICAN AMERICAN > 60
[2018-10-31 10:41] LABS: BASO # 0.05 K/mm3 (0.0-2.0); BASO % 0.6 % (0.0-3.0); EOS # 0.2 (0.0-0.7); EOS % 2.7 % (1.5-5.0); HEMOGLOBIN 12.8 g/dL (14.0-18.0); LYMPH # 2.1 (1.2-3.4); LYMPH % 25.3 % (22.0-35.0); MEAN CELL VOLUME 86.2 fl (80.0-105.0); MEAN CORPUSCULAR HEMOGLOBIN 27.1 pg (25.0-35.0); MEAN CORPUSCULAR HGB CONC 31.4 g/dl (31.0-37.0); MEAN PLATELET VOLUME 9.9 fl (7.0-11.0); MONO # 0.8 (0.1-0.6); MONO % 9.7 % (1.0-6.0); RBC 4.72 10^6/uL (3.5-6.1); RED CELL DISTRIBUTION WIDTH 16.2 % (11.5-14.5); WHITE BLOOD COUNT 8.3 10^3/uL (4.5-11.0)
--- NOTE | 2018-10-31 11:21 | CP.PCM.PN ---
<Melany Torres - Last Filed: 10/31/18 14:04> Subjective - Date & Time of Evaluation Date of Evaluation: 10/31/18 Time of Evaluation: 11:21 - Subjective Subjective: Melany Torres, PGY2, Medicine Progress Note for Dr Santana: Patient seen and examined in the TV room while sitting in the wheelchair. As per nurse and psychiatrist Dr Pavon, there was concern regarding patient experiencing visual and auditory hallucinations about creatures, dragons flying. Patient reports that it started this morning. Denies seeing such hallucinations prior, new focal weakness/deficits, nausea, vomiting, headache, neck pain. Objective - Vital Signs/Intake and Output Vital Signs (last 24 hours): Temp Pulse Resp BP Pulse Ox 97.2 F L 90 20 121/80 100 10/31/18 07:16 10/31/18 09:23 10/31/18 07:16 10/31/18 09:23 10/11/18 23:17 - Medications Medications: Current Medications Acetaminophen (Tylenol 325mg Tab) 650 mg PO Q6H PRN PRN Reason: Pain, moderate (4-7) Last Admin: 10/29/18 21:50 Dose: 650 mg Al Hydrox/Mg Hydrox/Simethicone (Maalox Plus 30 Ml) 30 ml PO DAILY PRN PRN Reason: Upset Stomach Amitriptyline HCl (Elavil) 200 mg PO HS [facility] Last Admin: 10/30/18 22:05 Dose: 200 mg Amlodipine Besylate (Norvasc) 5 mg PO DAILY [facility] Last Admin: 10/31/18 09:23 Dose: 5 mg Aspirin (Ecotrin) 81 mg PO DAILY [facility] Last Admin: 10/31/18 09:26 Dose: 81 mg Atorvastatin Calcium (Lipitor) 40 mg PO DIN [facility] Last Admin: 10/30/18 17:18 Dose: 40 mg Clopidogrel Bisulfate (Plavix) 75 mg PO DAILY [facility] Last Admin: 10/31/18 09:26 Dose: 75 mg Docusate Sodium (Colace) 100 mg PO BID [facility] Enoxaparin Sodium (Lovenox) 30 mg SC DAILY [facility]; Protocol Last Admin: 10/31/18 08:45 Dose: Not Given Glipizide (Glucotrol) 10 mg PO 0730,1630 [facility] Last Admin: 01/27/19 09:23 Dose: 10 mg Insulin Detemir (Levemir) 10 unit SC [facility] Last Admin: 10/30/18 22:05 Dose: 10 units Insulin Human Regular (Humulin R Med) 0 units SC [facility]; Protocol Last Admin: 10/31/18 08:00 Dose: Not Given Lisinopril (Zestril) 10 mg PO DAILY [facility] Last Admin: 10/31/18 09:26 Dose: 10 mg Magnesium Hydroxide (Milk Of Magnesia) 30 ml PO DAILY PRN PRN Reason: Constipation Metoprolol Tartrate (Lopressor) 12.5 mg PO BID [facility] Last Admin: 10/31/18 09:21 Dose: 12.5 mg Pantoprazole Sodium (Protonix Ec Tab) 40 mg PO 0600 [facility] Last Admin: 10/31/18 06:44 Dose: 40 mg Valproate Sodium (Depakene Oral Soln) 500 mg PO BID [facility] Last Admin: 10/31/18 09:26 Dose: 500 mg Valproate Sodium (Depakene Oral Soln) 500 mg PO [facility] Last Admin: 10/30/18 21:40 Dose: 500 mg Zolpidem Tartrate (Ambien) 5 mg PO [facility]; Protocol Last Admin: 10/30/18 21:40 Dose: 5 mg - Labs Labs: 10/31/18 10:00 10/31/18 10:00 - Constitutional Appears: Non-toxic, No Acute Distress - Head Exam Head Exam: ATRAUMATIC, NORMOCEPHALIC - Eye Exam Eye Exam: EOMI, PERRL. absent: Conjunctival injection, Nystagmus, Scleral icterus Pupil Exam: NORMAL ACCOMODATION, PERRL. absent: Fixed, Irregular, Miosis, Mydriatic, Unequal - ENT Exam ENT Exam: Mucous Membranes Moist - Neck Exam Neck Exam: Full ROM - Respiratory Exam Respiratory Exam: Clear to Ausculation Bilateral, NORMAL BREATHING PATTERN. absent: Accessory Muscle Use, Rhonchi, Wheezes, Stridor - Cardiovascular Exam Cardiovascular Exam: RRR, +S1, +S2. absent: Murmur - GI/Abdominal Exam GI & Abdominal Exam: Soft, Normal Bowel Sounds. absent: Distended, Firm, Guarding, Rigid, Tenderness, Organomegaly, Rebound Additional comments: + 3x3 cm ecchymotic area noted on right abdomen - Extremities Exam Extremities Exam: Normal Inspection. absent: Calf Tenderness, Pedal Edema - Back Exam Back Exam: NORMAL INSPECTION. absent: CVA tenderness (L), CVA tenderness (R) - Neurological Exam Neurological Exam: Alert, Awake, Oriented x3 Neuro motor strength exam: Left Upper Extremity: 0, Right Upper Extremity: 5, Left Lower Extremity: 0, Right Lower Extremity: 5 Additional comments: Sensation intact, except left upper and lower extremity - Psychiatric Exam Psychiatric exam: Depressed - Skin Skin Exam: Dry, Normal Color, Warm Assessment and Plan - Assessment and Plan (Free Text) Assessment: This is a 53 year old male with PMH HTN, HLD, DM and right CVA in 07/2018 with residual left sided weakness, presented to [facility] initially for depression, suicidal ideations. Patient undergoing treatment on Psych unit. Medical team was consulted for visual hallucinations, bruising at abdominal wall site: Visual hallucinations: - Patient has a history of right sided MCA. - No new focal deficits noted - Likely related to mental illness, please treat appropriately - If persistent and not responsive to psychiatric intervention, can consider Neurology consult Bruising at right abdominal site: 2/2 lovenox subq injection - Instructed nurse to switch lovenox injection site to left and right. - CBC obtained showed stable hemoglobin - monitor Thank you for the consultation. Please re-consult us as necessary. Patient seen and case discussed with attending, Dr. Santana <Sam Santana - Last Filed: 10/31/18 14:47> Objective - Vital Signs/Intake and Output Vital Signs (last 24 hours): Temp Pulse Resp BP Pulse Ox 97.2 F L 90 20 121/80 100 10/31/18 07:16 10/31/18 09:23 10/31/18 07:16 10/31/18 09:23 10/11/18 23:17 - Medications Medications: Current Medications Acetaminophen (Tylenol 325mg Tab) 650 mg PO Q6H PRN PRN Reason: Pain, moderate (4-7) Last Admin: 10/29/18 21:50 Dose: 650 mg Al Hydrox/Mg Hydrox/Simethicone (Maalox Plus 30 Ml) 30 ml PO DAILY PRN PRN Reason: Upset Stomach Alprazolam (Xanax) 0.25 mg PO TID PRN; Protocol PRN Reason: anxiety/restlessness Stop: 11/07/18 13:01 Last Admin: 10/31/18 12:45 Dose: 0.25 mg Amitriptyline HCl (Elavil) 100 mg PO [facility] Amlodipine Besylate (Norvasc) 5 mg PO DAILY [facility] Last Admin: 10/31/18 09:23 Dose: 5 mg Aspirin (Ecotrin) 81 mg PO DAILY [facility] Last Admin: 10/31/18 09:26 Dose: 81 mg Atorvastatin Calcium (Lipitor) 40 mg PO DIN [facility] Last Admin: 10/30/18 17:18 Dose: 40 mg Clopidogrel Bisulfate (Plavix) 75 mg PO DAILY [facility] Last Admin: 10/31/18 09:26 Dose: 75 mg Docusate Sodium (Colace) 100 mg PO BID [facility] Enoxaparin Sodium (Lovenox) 30 mg SC DAILY [facility]; Protocol Last Admin: 10/31/18 11:34 Dose: 30 mg Glipizide (Glucotrol) 10 mg PO 0730,1630 [facility] Last Admin: 10/31/18 09:23 Dose: 10 mg Insulin Detemir (Levemir) 10 unit SC [facility] Last Admin: 10/30/18 22:05 Dose: 10 units Insulin Human Regular (Humulin R Med) 0 units SC [facility]; Protocol Last Admin: 10/31/18 12:44 Dose: 3 unit Lisinopril (Zestril) 10 mg PO DAILY [facility] Last Admin: 10/31/18 09:26 Dose: 10 mg Magnesium Hydroxide (Milk Of Magnesia) 30 ml PO DAILY PRN PRN Reason: Constipation Metoprolol Tartrate (Lopressor) 12.5 mg PO BID [facility] Last Admin: 10/31/18 09:21 Dose: 12.5 mg Pantoprazole Sodium (Protonix Ec Tab) 40 mg PO 0600 [facility] Last Admin: 10/31/18 06:44 Dose: 40 mg Quetiapine Fumarate (Seroquel) 12.5 mg PO [facility]; Protocol Valproate Sodium (Depakene Oral Soln) 500 mg PO BID [facility] Last Admin: 10/31/18 09:26 Dose: 500 mg Valproate Sodium (Depakene Oral Soln) 500 mg PO [facility] Last Admin: 10/30/18 21:40 Dose: 500 mg Zolpidem Tartrate (Ambien) 5 mg PO [facility]; Protocol Last Admin: 10/30/18 21:40 Dose: 5 mg - Labs Labs: 10/31/18 10:00 10/31/18 10:00 Attending/Attestation - Attestation I have personally seen and examined this patient.: Yes I have fully participated in the care of the patient.: Yes I have reviewed all pertinent clinical information, including history, physical exam and plan: Yes Notes (Text): 10/31/18 14:47 Medical record note made by the resident after discussion with my direction and input after the patient was personally seen and examined by me. I have reviewed the chart and agree that the record accurately reflects by personal performance of the history, physical exam, data review, and medical decision-making, in the course for the patient. I have also personally directed the plan of care.
--- NOTE | 2018-10-31 12:21 | PCM.PYCHPN ---
Psychiatric Progress Note - Psychiatric Progress Note Patient seen today, length of contact: 30 minutes Patient Chief Complaint: "I see that little crocodile..., take it off me, take it off..." Problems Identified/Issues Discussed: Suicide/ homicide prevention, past psychiatric h/o, current psychiatric symptoms, medical problems, risk/benefits and alternatives of medications, medications compliance, coping strategies, substance abuse h/o, relapse prevention, importance of follow up with psychiatrist and therapist, discharge plan. Medical Problems: Multiple medical issues please see medical team notes for more detailed informa tion Diagnostic Results: 10/11/18 20:28 10/11/18 20:28 Lab Results 10/12/18 20:55: POC Glucose (mg/dL) 202 H 10/12/18 16:28: POC Glucose (mg/dL) 103 10/12/18 11:18: POC Glucose (mg/dL) 227 H 10/12/18 07:19: POC Glucose (mg/dL) 235 H 10/12/18 06:15: RPR Nonreactive 10/12/18 06:15: TSH 3rd Generation 3.33 10/12/18 06:15: Fasting Glucose 254 H, Triglycerides 154, Cholesterol 132, LDL Cholesterol Direct 58, HDL Cholesterol 35 10/12/18 01:06: POC Glucose (mg/dL) 232 H 10/11/18 20:28: WBC 10.7, RBC 4.66, Hgb 12.6 L, Hct 38.9 L, MCV 83.5, MCH 27.0, MCHC 32.4, RDW 15.7 H, Plt Count 284, MPV 9.7, Gran % 58.2, Lymph % (Auto) 32.2, [place] % (Auto) 7.1 H, Eos % (Auto) 2.1, Baso % (Auto) 0.4, Gran # 6.22, Lymph # (Auto) 3.5 H, [place] # (Auto) 0.8 H, Eos # (Auto) 0.2, Baso # (Auto) 0.04 10/11/18 20:28: Alcohol, Quantitative < 10 10/11/18 20:28: Sodium 138, Potassium 3.9, Chloride 102, Carbon Dioxide 25, Anion Gap 15, BUN 18, Creatinine 0.6 L, Est GFR ( Amer) > 60, Est GFR (Non-Af Amer) > 60, Random Glucose 233 H, Calcium 9.9, Total Bilirubin 0.5, AST 49, ALT 43, Alkaline Phosphatase 76, Total Protein 7.4, Albumin 4.3, Globulin 3.0, Albumin/Globulin Ratio 1.4 10/11/18 20:28: Salicylates < 1 L, Acetaminophen < 10.0 L 10/11/18 20:19: Urine Color Yellow, Urine Appearance Clear, Urine pH 6.0, Ur Specific [place] >= 1.030, Urine Protein Negative, Urine Glucose (UA) 500 H, Urine Ketones Negative, Urine Blood Negative, Urine Nitrate Negative, Urine B ilirubin Negative, Urine Urobilinogen 0.2, Ur Leukocyte Esterase Negative 10/11/18 20:19: Urine Opiates Screen Negative, Urine Methadone Screen Negative, Ur Barbiturates Screen Negative, Ur Phencyclidine Scrn Negative, Ur Amphetamines Screen Negative, U Benzodiazepines Scrn Negative, U Oth Cocaine Metabols Negative, U Cannabinoids Screen Negative Vital Signs Temp Pulse Pulse Resp BP Pulse Ox 10/13/18 08:43 63 120/71 10/13/18 08:42 63 120/71 10/13/18 07:08 98.0 F 63 20 120/71 10/12/18 17:55 60 107/70 10/12/18 16:00 60 107/70 10/12/18 09:08 87 109/66 10/12/18 09:04 84 109/66 10/12/18 07:26 97.8 F 84 20 109/66 10/12/18 01:36 65 18 10/11/18 23:17 80 18 123/56 L 100 10/11/18 21:14 61 18 133/72 100 10/11/18 19:54 98.1 F 75 18 138/80 100 Temp Pulse Resp BP Pulse Ox 98.7 F 76 20 109/69 100 10/14/18 07:26 10/14/18 10:07 10/14/18 07:26 10/14/18 10:07 10/11/18 23:17 Laboratory Results - last 24 hr 10/14/18 10/14/18 10/15/18 16:29 21:25 07:40 POC Glucose (mg/dL) 235 H 216 H 144 H Abnormal Lab Results 10/25/18 10/25/18 10/25/18 11:00 17:05 20:53 POC Glucose (mg/dL) 215 H 166 H 238 H Valproic Acid 10/26/18 10/26/18 10/26/18 07:28 07:45 11:20 POC Glucose (mg/dL) 103 260 H Valproic Acid 42 L Abnormal Lab Results 10/31/18 10/31/18 10:00 10:00 WBC 8.3 D RBC 4.72 Hgb 12.8 L Hct 40.7 L MCV 86.2 MCH 27.1 MCHC 31.4 RDW 16.2 H Plt Count 342 MPV 9.9 Neut % (Auto) 61.7 Lymph % (Auto) 25.3 [place] % (Auto) 9.7 H Eos % (Auto) 2.7 Baso % (Auto) 0.6 Lymph # (Auto) 2.1 [place] # (Auto) 0.8 H Eos # (Auto) 0.2 Baso # (Auto) 0.05 Absolute Neuts (auto) 5.09 Sodium 139 Potassium 4.6 Chloride 100 Carbon Dioxide 31 Anion Gap 12 BUN 24 H Creatinine 0.8 Est GFR ( Amer) > 60 Est GFR (Non-Af Amer) > 60 Random Glucose 158 H Calcium 9.2 Total Bilirubin 0.2 AST 25 ALT 46 Alkaline Phosphatase 66 Total Protein 7.9 Albumin 4.4 Globulin 3.5 Albumin/Globulin Ratio 1.2 DSM 5 Symptoms Update: Short the patient is a 53-year-old male, recent stroke in July 2018, patient has paralysis of the left side of his body, patient is wheelchair-bound, patient was brought in by his girlfriend after patient was verbalizing thoughts of killing himself by gunshot. Obviously patient required further evaluation and stabilization and medications initiation and titration. 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 This flex o writer operator started Seroquel 12.5 mg twice a day, Elavil was decreased, Xanax 0.25 mg 3 times a day as needed for anxiety is initiated. Discussed with spanish medical interpreter. Patient reported that he slept well on Ambien, patient denied any side effects. So far patient tolerates medications well, no side effects observed or reported, aims 0, no EPS. Impression: DSM 5 Diagnosis: Rule out major depressive disorder Rule out mood disorder due to general medical condition Physical therapy recommended subacute rehab Medication Change: Yes (Elavil decreased, Xanax 0.25 mg 3 times a day started, Seroquel 12.5 mg bid) Medical Record Reviewed: Yes Consults ordered or reviewed: Medical consult appreciated Physical therapy consult appreciated medical medical follow-up appreciated, discussed with spanish medical interpreter 10/31/2018 Mental Status Examination - Cognitive Function Orientation: Person, Place, Situation, Time Memory: Intact Attention: WNL Concentration: Poor (Somewhat better) Association: WNL Fund of Knowledge: Poor - Mood Mood: Depressed ("I see that crocodiles...") - Affect Affect: Constricted - Speech Speech: Soft - Formal Thought Process Formal Thought Process: Hallucinations (sees crocodiles today) - Suicidal Ideation Suicidal Ideation: No - Homicidal Ideation Homicidal Ideation: No Goal/Treatment Plan - Goal/Treatment Plan Need for Continued Stay: Remain at risks for inpatient hospitalization, Severe depression anxiety, Discharge may exacerbated symptoms, Severe functional im pairment Progress Toward Problem(s) and Goals/Treatment Plan: Milieu/structure/supportive therapy Medical consult appreciated, see medical team note for more detailed info neurology follow up requested 10/31/18 Physical therapy consult appreciated SW consultation for discharge plan and social issues Med management Amitriptyline was decreased to 100 mg at the nighttime for depression Depakote 500 mg twice a day and hs for mood stabilization Depakote level 10/26/18 seroquel 12.5mg amhs for hallucinations xanax 0.25mg po bid for anxiety and restlessness Ambien 5 mg at the nighttime as needed for insomnia As needed medications Family involvement Follow up on labs Will monitor closely Pt was educated about risk/benefits and alternatives of medications, coping strategies (safety plan, suicide prevention), relapse prevention, importance of follow up with psychiatrist and therapist, stay away from drugs/alcohol/smoking Family meeting cancelled, because most likely pt will go to [facility]. Estimated Date of D/C: 11/02/18
[2018-10-31 22:48] LABS: URINE BILIRUBIN NEGATIVE (NEGATIVE); URINE BLOOD NEGATIVE (NEGATIVE); URINE GLUCOSE (UA) NEGATIVE (NEGATIVE); URINE LEUKOCYTE ESTERASE NEGATIVE Leu/uL (NEGATIVE); URINE PROTEIN NEGATIVE mg/dL (<30 mg/dL); URINE UROBILINOGEN 0.2 E.U./dL (<1 E.U./dL)
[2018-10-31 22:49] LABS: URINE APPEARANCE CLEAR (CLEAR); URINE COLOR YELLOW (YELLOW)
[2018-10-31] MEDS: Insulin Detemir 100 units/ml Vial (Levemir) SC SCH (23:28)
--- NOTE | 2018-11-01 01:08 | CP.PCM.CON ---
History of Present Illness - History of Present Illness History of Present Illness: Neurology consult requested by DR. Savanah Winslow Mr. Leo is a 53 yr old male who has a history of depression and suicidal ideation, and presented with a Rt MCA stroke recently. He completed his workup but since has been having hallucinations of zombies and alligators. IT is not clear if there is loss of consciousness during these events, but it is happening quite frequently. There is no history of drug use or recent head trauma. ROS: not obtainable as patient is not able to answer my questions. ON exam: Patient is sitting in a wheel chair. PERRL. His lower limbs are quite weak and his upper limbs are contracter, with left sided hemiplegia. He sits stooped with minimal verbal output, but can name, repeat, and tell me his name. CN 2-12 normal. +1 dtr ul and ll bl. Toes downgoing. No clonus. Past Patient History - Infectious Disease Hx of Infectious Diseases: None - Past Social History Smoking Status: Current Some Days Smoker - CARDIAC Hx Atrial Fibrillation: No Hx Hypertension: Yes - PULMONARY Hx Respiratory Disorders: Yes (SMOKES PPD) Hx Pneumonia: Yes (2006) - NEUROLOGICAL HX Cerebrovascular Accident: Yes (LEFT SIDED WEAKNESS,FACIAL DROOP 07-31-18) - HEENT Hx HEENT Problems: No (METAL SHRAPNEL REMOVED FROM EYE) - RENAL Hx Chronic Kidney Disease: No - ENDOCRINE/METABOLIC Hx Diabetes Mellitus Type 2: Yes - HEMATOLOGICAL/ONCOLOGICAL Hx Blood Disorders: No - INTEGUMENTARY Hx Dermatological Problems: No - MUSCULOSKELETAL/RHEUMATOLOGICAL Hx Musculoskeletal Disorders: No Hx Falls: Yes (TODAY 07-31-18) Hx Fractures: Yes (RIB FX,LEFT WRIST FX-JOB RELATED) - GASTROINTESTINAL Hx Gastrointestinal Disorders: No - GENITOURINARY/GYNECOLOGICAL Hx Genitourinary Disorders: No - PSYCHIATRIC Hx Substance Use: No - SURGICAL HISTORY Hx Surgeries: Yes (BLADDER SX, METAL SHRAPNEL REMOVED FROM EYE) - ANESTHESIA Hx Anesthesia: No Meds Allergies/Adverse Reactions: Allergies Allergy/AdvReac Type Severity Reaction Status Date / Time No Known Allergies Allergy Verified 10/12/18 00:32 - Medications Medications: Current Medications Acetaminophen (Tylenol 325mg Tab) 650 mg PO Q6H PRN PRN Reason: Pain, moderate (4-7) Last Admin: 10/29/18 21:50 Dose: 650 mg Al Hydrox/Mg Hydrox/Simethicone (Maalox Plus 30 Ml) 30 ml PO DAILY PRN PRN Reason: Upset Stomach Alprazolam (Xanax) 0.25 mg PO TID PRN; Protocol PRN Reason: anxiety/restlessness Stop: 11/07/18 13:01 Last Admin: 10/31/18 12:45 Dose: 0.25 mg Amitriptyline HCl (Elavil) 100 mg PO [facility] Last Admin: 10/31/18 21:38 Dose: 100 mg Amlodipine Besylate (Norvasc) 5 mg PO DAILY [facility] Last Admin: 10/31/18 09:23 Dose: 5 mg Aspirin (Ecotrin) 81 mg PO DAILY [facility] Last Admin: 10/31/18 09:26 Dose: 81 mg Atorvastatin Calcium (Lipitor) 40 mg PO DIN [facility] Last Admin: 10/31/18 16:51 Dose: 40 mg Clopidogrel Bisulfate (Plavix) 75 mg PO DAILY [facility] Last Admin: 10/31/18 09:26 Dose: 75 mg Docusate Sodium (Colace) 100 mg PO BID [facility] Last Admin: 10/31/18 16:51 Dose: 100 mg Enoxaparin Sodium (Lovenox) 30 mg SC DAILY [facility]; Protocol Last Admin: 10/31/18 11:34 Dose: 30 mg Glipizide (Glucotrol) 10 mg PO 0730,1630 [facility] Last Admin: 10/31/18 16:51 Dose: 10 mg Insulin Detemir (Levemir) 10 unit SC [facility] Last Admin: 10/31/18 23:28 Dose: 10 units Insulin Human Regular (Humulin R Med) 0 units SC [facility]; Protocol Last Admin: 10/31/18 22:50 Dose: Not Given Lisinopril (Zestril) 10 mg PO DAILY [facility] Last Admin: 10/31/18 09:26 Dose: 10 mg Magnesium Hydroxide (Milk Of Magnesia) 30 ml PO DAILY PRN PRN Reason: Constipation Metoprolol Tartrate (Lopressor) 12.5 mg PO BID [facility] Last Admin: 10/31/18 16:49 Dose: 12.5 mg Pantoprazole Sodium (Protonix Ec Tab) 40 mg PO 0600 [facility] Last Admin: 10/31/18 06:44 Dose: 40 mg Quetiapine Fumarate (Seroquel) 12.5 mg PO [facility]; Protocol Last Admin: 10/31/18 21:38 Dose: 12.5 mg Valproate Sodium (Depakene Oral Soln) 500 mg PO BID [facility] Last Admin: 10/31/18 16:52 Dose: 500 mg Valproate Sodium (Depakene Oral Soln) 500 mg PO HS [facility] Last Admin: 10/31/18 21:39 Dose: 500 mg Zolpidem Tartrate (Ambien) 5 mg PO HS [facility]; Protocol Last Admin: 10/31/18 21:38 Dose: 5 mg Results - Vital Signs Recent Vital Signs: Last Vital Signs Temp 97.2 F L 10/31/18 07:16 Pulse 77 10/31/18 16:49 Resp 20 10/31/18 07:16 BP 102/71 10/31/18 16:49 Pulse Ox 100 10/11/18 23:17 - Labs Result Diagrams: 10/31/18 10:00 10/31/18 10:00 Labs: Laboratory Results - last 24 hr 10/31/18 10/31/18 10/31/18 10:00 10:00 22:30 WBC 8.3 D RBC 4.72 Hgb 12.8 L Hct 40.7 L MCV 86.2 MCH 27.1 MCHC 31.4 RDW 16.2 H Plt Count 342 MPV 9.9 Neut % (Auto) 61.7 Lymph % (Auto) 25.3 [place] % (Auto) 9.7 H Eos % (Auto) 2.7 Baso % (Auto) 0.6 Lymph # (Auto) 2.1 [place] # (Auto) 0.8 H Eos # (Auto) 0.2 Baso # (Auto) 0.05 Absolute Neuts (auto) 5.09 Sodium 139 Potassium 4.6 Chloride 100 Carbon Dioxide 31 Anion Gap 12 BUN 24 H Creatinine 0.8 Est GFR ( Amer) > 60 Est GFR (Non-Af Amer) > 60 Random Glucose 158 H Calcium 9.2 Total Bilirubin 0.2 AST 25 ALT 46 Alkaline Phosphatase 66 Total Protein 7.9 Albumin 4.4 Globulin 3.5 Albumin/Globulin Ratio 1.2 Urine Color Yellow Urine Appearance Clear Urine pH 6.0 Ur Specific [place] 1.015 Urine Protein Negative Urine Glucose (UA) Negative Urine Ketones Negative Urine Blood Negative Urine Nitrate Negative Urine Bilirubin Negative Urine Urobilinogen 0.2 Ur Leukocyte Esterase Negative Assessment & Plan - Assessment and Plan (Free Text) Assessment: 53 yr old male who may have had a new stroke or may be occipital lobe seizures, differential of psychosis. Plan: 1. MRI Brain withand without contrast. 2. EEG in am . Thank you Dr. [facility]
[2018-11-01] MEDS: Insulin Reg-MEDIUM-Coverage SC SCH ×4 (09:00→21:40)
[2018-11-01] MEDS: Enoxaparin 30 mg Syringe SC SCH (09:45)
[2018-11-01] MEDS: Valproic Acid 250 mg/5 ml UD Cup PO SCH ×3 (09:46→21:34)
[2018-11-01] MEDS: Pantoprazole 40 mg EC Tab PO SCH (09:49)
--- NOTE | 2018-11-01 14:15 | PCM.PYCHPN ---
Psychiatric Progress Note - Psychiatric Progress Note Patient seen today, length of contact: 30 minutes Patient Chief Complaint: "I am fine, I slept well" Problems Identified/Issues Discussed: Suicide/ homicide prevention, past psychiatric h/o, current psychiatric symptoms, medical problems, risk/benefits and alternatives of medications, medications compliance, coping strategies, substance abuse h/o, relapse prevention, importance of follow up with psychiatrist and therapist, discharge plan. Medical Problems: Multiple medical issues please see medical team notes for more detailed information Diagnostic Results: 10/11/18 20:28 10/11/18 20:28 Lab Results 10/12/18 20:55: POC Glucose (mg/dL) 202 H 10/12/18 16:28: POC Glucose (mg/dL) 103 10/12/18 11:18: POC Glucose (mg/dL) 227 H 10/12/18 07:19: POC Glucose (mg/dL) 235 H 10/12/18 06:15: RPR Nonreactive 10/12/18 06:15: TSH 3rd Generation 3.33 10/12/18 06:15: Fasting Glucose 254 H, Triglycerides 154, Cholesterol 132, LDL Cholesterol Direct 58, HDL Cholesterol 35 10/12/18 01:06: POC Glucose (mg/dL) 232 H 10/11/18 20:28: WBC 10.7, RBC 4.66, Hgb 12.6 L, Hct 38.9 L, MCV 83.5, MCH 27.0, MCHC 32.4, RDW 15.7 H, Plt Count 284, MPV 9.7, Gran % 58.2, Lymph % (Auto) 32.2, [place] % (Auto) 7.1 H, Eos % (Auto) 2.1, Baso % (Auto) 0.4, Gran # 6.22, Lymph # (Auto) 3.5 H, [place] # (Auto) 0.8 H, Eos # (Auto) 0.2, Baso # (Auto) 0.04 10/11/18 20:28: Alcohol, Quantitative < 10 10/11/18 20:28: Sodium 138, Potassium 3.9, Chloride 102, Carbon Dioxide 25, Anion Gap 15, BUN 18, Creatinine 0.6 L, Est GFR ( Amer) > 60, Est GFR (Non-Af Amer) > 60, Random Glucose 233 H, Calcium 9.9, Total Bilirubin 0.5, AST 49, ALT 43, Alkaline Phosphatase 76, Total Protein 7.4, Albumin 4.3, Globulin 3.0, Albumin/Globulin Ratio 1.4 10/11/18 20:28: Salicylates < 1 L, Acetaminophen < 10.0 L 10/11/18 20:19: Urine Color Yellow, Urine Appearance Clear, Urine pH 6.0, Ur Specific [place] >= 1.030, Urine Protein Negative, Urine Glucose (UA) 500 H, Urine Ketones Negative, Urine Blood Negative, Urine Nitrate Negative, Urine Bilirubin Negative, Urine Urobilinogen 0.2, Ur Leukocyte Esterase Negative 10/11/18 20:19: Urine Opiates Screen Negative, Urine Methadone Screen Negative, Ur Barbiturates Screen Negative, Ur Phencyclidine Scrn Negative, Ur Amphetamines Screen Negative, U Benzodiazepines Scrn Negative, U Oth Cocaine Metabols Negati ve, U Cannabinoids Screen Negative Vital Signs Temp Pulse Pulse Resp BP Pulse Ox 10/13/18 08:43 63 120/71 10/13/18 08:42 63 120/71 10/13/18 07:08 98.0 F 63 20 120/71 10/12/18 17:55 60 107/70 10/12/18 16:00 60 107/70 10/12/18 09:08 87 109/66 10/12/18 09:04 84 109/66 10/12/18 07:26 97.8 F 84 20 109/66 10/12/18 01:36 65 18 10/11/18 23:17 80 18 123/56 L 100 10/11/18 21:14 61 18 133/72 100 10/11/18 19:54 98.1 F 75 18 138/80 100 Temp Pulse Resp BP Pulse Ox 98.7 F 76 20 109/69 100 10/14/18 07:26 10/14/18 10:07 10/14/18 07:26 10/14/18 10:07 10/11/18 23:17 Laboratory Results - last 24 hr 10/14/18 10/14/18 10/15/18 16:29 21:25 07:40 POC Glucose (mg/dL) 235 H 216 H 144 H Abnormal Lab Results 10/25/18 10/25/18 10/25/18 11:00 17:05 20:53 POC Glucose (mg/dL) 215 H 166 H 238 H Valproic Acid 10/26/18 10/26/18 10/26/18 07:28 07:45 11:20 POC Glucose (mg/dL) 103 260 H Valproic Acid 42 L Abnormal Lab Results 10/31/18 10/31/18 10:00 10:00 WBC 8.3 D RBC 4.72 Hgb 12.8 L Hct 40.7 L MCV 86.2 MCH 27.1 MCHC 31.4 RDW 16.2 H Plt Count 342 MPV 9.9 Neut % (Auto) 61.7 Lymph % (Auto) 25.3 [place] % (Auto) 9.7 H Eos % (Auto) 2.7 Baso % (Auto) 0.6 Lymph # (Auto) 2.1 [place] # (Auto) 0.8 H Eos # (Auto) 0.2 Baso # (Auto) 0.05 Absolute Neuts (auto) 5.09 Sodium 139 Potassium 4.6 Chloride 100 Carbon Dioxide 31 Anion Gap 12 BUN 24 H Creatinine 0.8 Est GFR ( Amer) > 60 Est GFR (Non-Af Amer) > 60 Random Glucose 158 H Calcium 9.2 Total Bilirubin 0.2 AST 25 ALT 46 Alkaline Phosphatase 66 Total Protein 7.9 Albumin 4.4 Globulin 3.5 Albumin/Globulin Ratio 1.2 DSM 5 Symptoms Update: Short the patient is a 53-year-old male, recent stroke in July 2018, patient has paralysis of the left side of his body, patient is wheelchair-bound, patient was brought in by his girlfriend after patient was verbalizing thoughts of killing himself by gunshot. Obviously patient required further evaluation and stabilization and medications initiation and titration. Patient was seen at the dinning area, patient appears to be somewhat confused, yesterday pt had visual hallucinations was seeing "crocodiles and zombies", pt was seen by neurology team, recommended MRI and EEG, staff notified, labs seems to be WNL. Today pt presented better, was not that confused, pt reported that he slept better. 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 Patient reported that he slept well on Ambien, patient denied any side effects. So far patient tolerates medications well, no side effects observed or reported, aims 0, no EPS. Impression: DSM 5 Diagnosis: Rule out major depressive disorder Rule out mood disorder due to general medical condition Physical therapy recommended subacute rehab Medication Change: Yes (Elavil decreased, Xanax 0.25 mg 3 times a day started, Seroquel 12.5 mg bid) Medical Record Reviewed: Yes Consults ordered or reviewed: Medical consult appreciated Physical therapy consult appreciated medical medical follow-up appreciated, discussed with medical assembler 10/31/2018 Mental Status Examination - Cognitive Function Orientation: Person, Place, Situation, Time Memory: Intact Attention: WNL Concentration: Poor (Somewhat better) Association: WNL Fund of Knowledge: Poor - Mood Mood: Depressed ("I see that crocodiles...") - Affect Affect: Constricted - Speech Speech: Soft - Formal Thought Process Formal Thought Process: Hallucinations (sees crocodiles today) - Suicidal Ideation Suicidal Ideation: No - Homicidal Ideation Homicidal Ideation: No Goal/Treatment Plan - Goal/Treatment Plan Need for Continued Stay: Remain at risks for inpatient hospitalization, Severe depression anxiety, Discharge may exacerbated symptoms, Severe functional impairment Progress Toward Problem(s) and Goals/Treatment Plan: Milieu/structure/supportive therapy Medical consult appreciated, see medical team note for more detailed info neurology follow up requested 10/31/18 Physical therapy consult appreciated SW consultation for discharge plan and social issues Med management Amitriptyline was decreased to 75 mg at the nighttime for depression prozac 10mg starting tomorrow 11/02/18 Depakote 500 mg twice a day and hs for mood stabilization Depakote level 42 /10/26/18 seroquel 12.5mg amhs for hallucinations xanax 0.25mg po bid for anxiety and restlessness Ambien 5 mg at the nighttime as needed for insomnia As needed medications Family involvement Follow up on labs Will monitor closely Pt was educated about risk/benefits and alternatives of medications, coping strategies (safety plan, suicide prevention), relapse prevention, importance of follow up with psychiatrist and therapist, stay away from drugs/alcohol/smoking Family meeting cancelled, because most likely pt will go to [facility]. Estimated Date of D/C: 11/04/18
[2018-11-01 18:34] VITALS: RESP 19
[2018-11-01] MEDS: Insulin Detemir 100 units/ml Vial (Levemir) SC SCH (21:39)
[2018-11-02] MEDS: Pantoprazole 40 mg EC Tab PO SCH (06:34)
[2018-11-02 07:16] VITALS: BP 134/81; PULSE 80; TEMP 97.9
[2018-11-02] MEDS: Insulin Reg-MEDIUM-Coverage SC SCH (08:56)
[2018-11-02] MEDS: Enoxaparin 30 mg Syringe SC SCH (09:04)
--- NOTE | 2018-11-02 09:41 | MRI ---
Date of service: 11/01/2018 PROCEDURE: MRI BRAIN WITH AND WITHOUT CONTRAST HISTORY: stroke COMPARISON: None available. TECHNIQUE: Multiplanar, multisequence MR images of the brain were obtained with and without intravenous contrast enhancement. FINDINGS: HEMORRHAGE: None DWI: Subacute to chronic involving right temporal and frontal parietal ischemic infarct with diffusion-weighted abnormality and accompanying hemorrhagic component. Associated residual vasogenic edema. Hemosiderin ring present. Diffuse gyral enhancement consistent with luxury perfusion. Abnormal signal extends into the right cerebral peduncle and brainstem. No significant mass effect at this time. BRAIN PARENCHYMA: Generalized parenchymal atrophy. Chronic periventricular and subcortical microvascular ischemic disease. ENHANCEMENT: As above. VENTRICLES: Unremarkable. No hydrocephalus. CRANIUM: Unremarkable. ORBITS: Grossly unremarkable. PARANASAL SINUSES/MASTOIDS: Mild sinus disease. VASCULAR SYSTEM: Skull base flow voids intact. OTHER FINDINGS: None . IMPRESSION: Subacute to chronic involving right temporal and frontal parietal ischemic infarct with diffusion-weighted abnormality and accompanying hemorrhagic component. Associated residual vasogenic edema. Hemosiderin ring present. Diffuse gyral enhancement consistent with luxury perfusion. Abnormal signal extends into the right cerebral peduncle and brainstem. No significant mass effect at this time.
--- NOTE | 2018-11-02 12:31 | PCM.PYCHDC ---
Mental Status Examination - Mental Status Examination Orientation: Person, Place Memory: Impaired Mood: Depressed Affect: Constricted Speech: Appropriate (But underproductive, yes/no answers) Attention: Poor Concentration: Poor Association: Loose Fund of Knowledge: WNL Formal Thought Process: Hallucinations (Visual hallucinations, patient sees crocodiles and zombies, most likely related to the new stroke) Description of patient's judgement and insight: Limited, but improving Psychotic Thoughts and Behaviors: Patient has visual hallucinations, which most likely related to the new stroke Suicidal Ideation: No Current Homicidal Ideation?: No Plan: Patient denied thoughts of harming himself or others Discharge Summary - Discharge Note Reason for Hospitalization: pt was admitted for evaluation of depression, possible suicidal ideation with the plan to shoot himself. see ED notes for more detailed information. Psychiatric History (includes Medical, Family, Personal Hx): See HPI Laboratory Data: 10/31/18 10:00 10/31/18 10:00 Lab Results 10/31/18 22:30: Urine Color Yellow, Urine Appearance Clear, Urine pH 6.0, Ur Specific [place] 1.015, Urine Protein Negative, Urine Glucose (UA) Negative, Urine Ketones Negative, Urine Blood Negative, Urine Nitrate Negative, Urine Bilirubin Negative, Urine Urobilinogen 0.2, Ur Leukocyte Esterase Negative 10/31/18 10:00: Sodium 139, Potassium 4.6, Chloride 100, Carbon Dioxide 31, Anion Gap 12, BUN 24 H, Creatinine 0.8, Est GFR ( Amer) > 60, Est GFR (Non-Af Amer) > 60, Random Glucose 158 H, Calcium 9.2, Total Bilirubin 0.2, AST 25, ALT 46, Alkaline Phosphatase 66, Total Protein 7.9, Albumin 4.4, Globulin 3.5, Albumin/Globulin Ratio 1.2 10/31/18 10:00: WBC 8.3 D, RBC 4.72, Hgb 12.8 L, Hct 40.7 L, MCV 86.2, MCH 27.1, MCHC 31.4, RDW 16.2 H, Plt Count 342, MPV 9.9, Neut % (Auto) 61.7, Lymph % (Auto) 25.3, Ray % (Auto) 9.7 H, Eos % (Auto) 2.7, Baso % (Auto) 0.6, Lymph # (Auto) 2.1, Ray # (Auto) 0.8 H, Eos # (Auto) 0.2, Baso # (Auto) 0.05, Absolute Neuts (auto) 5.09 10/29/18 21:14: POC Glucose (mg/dL) 224 H 10/29/18 16:19: POC Glucose (mg/dL) 257 H 10/29/18 11:53: POC Glucose (mg/dL) 186 H 10/29/18 07:47: POC Glucose (mg/dL) 95 10/28/18 21:21: POC Glucose (mg/dL) 266 H 10/28/18 16:10: POC Glucose (mg/dL) 180 H 10/28/18 11:11: POC Glucose (mg/dL) 235 H 10/28/18 07:20: POC Glucose (mg/dL) 177 H 10/27/18 21:15: POC Glucose (mg/dL) 216 H 10/27/18 16:35: POC Glucose (mg/dL) 145 H 10/27/18 15:15: POC Glucose (mg/dL) 187 H 10/27/18 11:22: POC Glucose (mg/dL) 324 H 10/27/18 07:27: POC Glucose (mg/dL) 139 H 10/26/18 22:10: POC Glucose (mg/dL) 230 H 10/26/18 16:46: POC Glucose (mg/dL) 230 H 10/26/18 11:20: POC Glucose (mg/dL) 260 H 10/26/18 07:45: Valproic Acid 42 L 10/26/18 07:28: POC Glucose (mg/dL) 103 10/25/18 20:53: POC Glucose (mg/dL) 238 H 10/25/18 17:05: POC Glucose (mg/dL) 166 H 10/25/18 11:00: POC Glucose (mg/dL) 215 H 10/25/18 07:16: POC Glucose (mg/dL) 128 H 10/24/18 20:51: POC Glucose (mg/dL) 145 H 10/24/18 16:19: POC Glucose (mg/dL) 154 H 10/24/18 11:08: POC Glucose (mg/dL) 134 H 10/24/18 08:43: POC Glucose (mg/dL) 152 H 10/23/18 21:12: POC Glucose (mg/dL) 158 H 10/23/18 17:18: POC Glucose (mg/dL) 172 H 10/23/18 11:14: POC Glucose (mg/dL) 256 H 10/23/18 07:26: POC Glucose (mg/dL) 136 H 10/22/18 21:00: POC Glucose (mg/dL) 238 H 10/22/18 16:22: POC Glucose (mg/dL) 231 H 10/22/18 11:09: POC Glucose (mg/dL) 220 H 10/22/18 07:19: POC Glucose (mg/dL) 209 H 10/21/18 21:39: POC Glucose (mg/dL) 225 H 10/21/18 16:12: POC Glucose (mg/dL) 148 H 10/21/18 11:20: POC Glucose (mg/dL) 259 H 10/21/18 07:29: POC Glucose (mg/dL) 99 10/20/18 21:09: POC Glucose (mg/dL) 158 H 10/20/18 16:24: POC Glucose (mg/dL) 152 H 10/20/18 11:21: POC Glucose (mg/dL) 312 H 10/20/18 07:32: POC Glucose (mg/dL) 125 H 10/19/18 21:26: POC Glucose (mg/dL) 200 H 10/19/18 16:33: POC Glucose (mg/dL) 199 H 10/19/18 11:08: POC Glucose (mg/dL) 228 H 10/19/18 07:25: POC Glucose (mg/dL) 156 H 10/18/18 21:07: POC Glucose (mg/dL) 203 H 10/18/18 16:41: POC Glucose (mg/dL) 198 H 10/18/18 11:10: POC Glucose (mg/dL) 273 H 10/18/18 07:26: POC Glucose (mg/dL) 175 H 10/17/18 21:27: POC Glucose (mg/dL) 232 H 10/17/18 15:33: POC Glucose (mg/dL) 234 H 10/17/18 11:11: POC Glucose (mg/dL) 249 H 10/17/18 08:07: POC Glucose (mg/dL) 136 H 10/16/18 21:48: POC Glucose (mg/dL) 236 H 10/16/18 16:00: POC Glucose (mg/dL) 283 H 10/16/18 11:12: POC Glucose (mg/dL) 242 H 10/16/18 07:20: POC Glucose (mg/dL) 257 H 10/15/18 21:30: POC Glucose (mg/dL) 238 H 10/15/18 16:07: POC Glucose (mg/dL) 210 H 10/15/18 11:32: POC Glucose (mg/dL) 369 H 10/15/18 07:40: POC Glucose (mg/dL) 144 H 10/14/18 21:25: POC Glucose (mg/dL) 216 H 10/14/18 16:29: POC Glucose (mg/dL) 235 H 10/14/18 11:16: POC Glucose (mg/dL) 202 H 10/14/18 07:21: POC Glucose (mg/dL) 162 H 10/13/18 21:28: POC Glucose (mg/dL) 192 H 10/13/18 16:17: POC Glucose (mg/dL) 149 H 10/13/18 11:20: POC Glucose (mg/dL) 265 H 10/13/18 07:24: POC Glucose (mg/dL) 147 H 10/12/18 20:55: POC Glucose (mg/dL) 202 H 10/12/18 16:28: POC Glucose (mg/dL) 103 10/12/18 11:18: POC Glucose (mg/dL) 227 H 10/12/18 07:19: POC Glucose (mg/dL) 235 H 10/12/18 06:15: RPR Nonreactive 10/12/18 06:15: TSH 3rd Generation 3.33 10/12/18 06:15: Fasting Glucose 254 H, Triglycerides 154, Cholesterol 132, LDL Cholesterol Direct 58, HDL Cholesterol 35 10/12/18 01:06: POC Glucose (mg/dL) 232 H 10/11/18 20:28: WBC 10.7, RBC 4.66, Hgb 12.6 L, Hct 38.9 L, MCV 83.5, MCH 27.0, MCHC 32.4, RDW 15.7 H, Plt Count 284, MPV 9.7, Gran % 58.2, Lymph % (Auto) 32.2, Ray % (Auto) 7.1 H, Eos % (Auto) 2.1, Baso % (Auto) 0.4, Gran # 6.22, Lymph # (Auto) 3.5 H, Ray # (Auto) 0.8 H, Eos # (Auto) 0.2, Baso # (Auto) 0.04 10/11/18 20:28: Alcohol, Quantitative < 10 10/11/18 20:28: Sodium 138, Potassium 3.9, Chloride 102, Carbon Dioxide 25, Anion Gap 15, BUN 18, Creatinine 0.6 L, Est GFR ( Amer) > 60, Est GFR (Non-Af Amer) > 60, Random Glucose 233 H, Calcium 9.9, Total Bilirubin 0.5, AST 49, ALT 43, Alkaline Phosphatase 76, Total Protein 7.4, Albumin 4.3, Globulin 3.0, Albumin/Globulin Ratio 1.4 10/11/18 20:28: Salicylates < 1 L, Acetaminophen < 10.0 L 10/11/18 20:19: Urine Color Yellow, Urine Appearance Clear, Urine pH 6.0, Ur Specific [place] >= 1.030, Urine Protein Negative, Urine Glucose (UA) 500 H, Urine Ketones Negative, Urine Blood Negative, Urine Nitrate Negative, Urine Bilirubin Negative, Urine Urobilinogen 0.2, Ur Leukocyte Esterase Negative 10/11/18 20:19: Urine Opiates Screen Negative, Urine Methadone Screen Negative, Ur Barbiturates Screen Negative, Ur Phencyclidine Scrn Negative, Ur Amphetamines Screen Negative, U Benzodiazepines Scrn Negative, U Oth Cocaine Metabols Negative, U Cannabinoids Screen Negative Vital Signs Temp Pulse Pulse Resp BP Pulse Ox 11/02/18 09:07 80 134/81 11/02/18 09:06 80 134/81 11/02/18 09:05 80 134/81 11/02/18 07:00 97.9 F 80 19 134/81 11/01/18 15:50 94 H 103/74 11/01/18 15:00 94 H 19 103/74 11/01/18 09:51 78 123/76 11/01/18 09:48 78 123/76 11/01/18 09:17 78 123/76 11/01/18 07:25 97.3 F L 78 18 123/76 10/31/18 16:49 77 102/71 10/31/18 09:23 90 121/80 10/31/18 07:16 97.2 F L 90 20 121/80 10/30/18 17:14 80 101/67 10/30/18 09:50 88 126/72 10/30/18 09:46 88 126/72 10/30/18 07:23 98.4 F 88 20 126/72 10/29/18 16:15 96 H 116/80 10/29/18 09:07 89 128/93 H 10/29/18 09:06 89 128/93 H 10/29/18 07:23 97.6 F 89 20 128/93 H 10/28/18 17:22 116 H 123/86 10/28/18 16:00 116 H 123/86 10/28/18 08:33 70 124/70 10/28/18 08:32 70 124/70 10/28/18 07:11 97.9 F 70 20 124/70 10/27/18 17:31 75 110/75 10/27/18 16:00 85 110/70 10/27/18 09:47 84 116/70 10/27/18 09:42 84 116/70 10/27/18 07:07 98.0 F 84 20 116/70 10/26/18 17:19 70 130/60 10/26/18 15:00 70 130/68 10/26/18 08:52 69 138/78 10/26/18 08:51 69 138/78 10/26/18 07:15 98.1 F 69 20 138/78 10/25/18 17:35 77 110/69 10/25/18 08:38 78 126/65 10/25/18 08:37 78 126/65 10/25/18 08:36 78 128/65 10/25/18 07:00 78 18 126/65 10/24/18 16:34 77 110/69 10/24/18 16:30 77 110/69 10/24/18 10:15 96 H 122/75 10/24/18 10:12 96 H 122/75 10/24/18 10:11 96 H 122/75 01/19/19 17:30 85 109/64 10/23/18 15:41 85 109/64 10/23/18 09:03 114/72 10/23/18 09:02 80 114/72 10/23/18 09:01 80 114/72 10/23/18 07:23 97.9 F 80 20 114/70 10/22/18 17:18 83 102/67 10/22/18 08:50 84 107/71 10/22/18 08:48 84 107/71 10/22/18 08:46 84 107/71 10/22/18 07:17 97.1 F L 84 107/71 10/21/18 17:53 77 104/67 10/21/18 15:00 94 H 126/86 10/21/18 09:34 81 130/81 10/21/18 09:33 81 130/81 10/21/18 07:03 98.0 F 81 20 130/81 10/20/18 17:03 82 111/71 10/20/18 16:30 82 111/71 10/20/18 09:12 67 115/65 10/20/18 09:11 67 115/65 10/20/18 07:31 98.2 F 67 20 115/65 10/19/18 17:34 68 97/58 L 10/19/18 16:00 68 97/58 L 10/19/18 09:04 77 118/74 10/19/18 09:03 77 118/74 10/19/18 09:01 77 118/74 10/19/18 07:00 98.5 F 77 19 118/74 10/18/18 17:36 85 102/63 10/18/18 16:30 85 102/63 10/18/18 08:46 85 117/72 10/18/18 08:45 85 117/72 10/18/18 08:38 85 117/72 10/18/18 07:12 98.0 F 85 20 117/72 10/17/18 08:39 89 107/69 10/17/18 08:38 89 107/69 10/17/18 07:22 98.0 F 89 20 107/69 10/16/18 16:29 82 112/78 10/16/18 08:32 71 108/67 10/16/18 08:31 71 108/67 10/16/18 07:00 97.7 F 71 19 108/67 10/15/18 17:18 80 101/61 10/15/18 16:30 80 101/61 10/15/18 09:37 63 117/73 10/15/18 09:33 63 117/73 10/15/18 09:30 63 117/73 10/15/18 07:18 97.7 F 63 20 117/73 10/14/18 17:57 76 110/67 10/14/18 16:00 76 110/67 10/14/18 10:07 76 109/69 10/14/18 10:06 76 109/69 10/14/18 10:05 76 109/69 10/14/18 07:26 98.7 F 42 L 20 110/65 10/13/18 17:25 63 113/73 10/13/18 16:00 63 113/73 10/13/18 08:43 63 120/71 10/13/18 08:42 63 120/71 10/13/18 07:08 98.0 F 63 20 120/71 10/12/18 17:55 60 107/70 10/12/18 16:00 60 107/70 10/12/18 09:08 87 109/66 10/12/18 09:04 84 109/66 10/12/18 07:26 97.8 F 84 20 109/66 10/12/18 01:36 65 18 10/11/18 23:17 80 18 123/56 L 100 10/11/18 21:14 61 18 133/72 100 10/11/18 19:54 98.1 F 75 18 138/80 100 MRI 11/01/2018 with and without contrast subacute to chronic involving the right temporal and frontal parietal ischemic infarct with diffusion weighted abnormality and accompanying hemorrhagic component please see MRI results for more detailed information Patient required to be transferred to the emergency room for further evaluation and stabilization Consultations:: List each consultation separately and include: 1. Reason for request. 2. Findings. 3. Follow-up Consultations: Medical consult appreciated Physical therapy consult appreciated medical medical follow-up appreciated, discussed with medical writer 10/31/2018 Neurology consult appreciated 11/01/[address] Agudelo 11/02/2018, new stroke, patient will be transferred to the emergency room for further evaluation and stabilization Summary of Hospital Course include:: 1. Description of specific treatment plan utilized for patients during their course of treatmen. 2. Summarize the time- course for resolution of acute symptoms and/or regressed behaviors. 3. Describe issues identified and worked on during hospitalization. 4. Describe medication utilized. 5. Describe medical problems identified and treated. 6. Reassessment of suicide risk Summary of Hospital Course: Short the patient is a 53-year-old male, recent stroke in July 2018, patient has paralysis of the left side of his body, patient is wheelchair-bound, patient was brought in by his girlfriend after patient was verbalizing thoughts of killing himself by gunshot. Obviously patient required further evaluation and stabilization and medications initiation and titration. Please see admission note for more detailed information. During this hospitalization patient was initiated on tricyclic antidepressant Elavil, Depakote for mood stabilization, ambien for sleep. over the weekend 10/30/18-10/31/18, pt's hallucinations were changing, from seeing colors and trains patient started to see crocodiles and zombies, neurology/medical team were called, patient got MRI which confirmed new stroke, patient required to be transferred to the emergency room for further evaluation and stabilization. pt was seen today 11/02/18, pt remembers this staff writer, aware that he is in the hospital, but was confused about the date. pt denied thoughts of harming himself or others, contracted for safety. pt was educated about new findings on MRI. 11/02/18 discussed with (neurologist). in regards of meds will d/c elavil depakote is on hold prozac on hold ambien as needed for insomnia seroquel 25mg po bid prn for psychosis staff was educated to contact family. pt was transferred to ED uneventfully will f/u on the medical site 10/11/18 20:28 10/11/18 20:28 Lab Results 10/12/18 07:19: POC Glucose (mg/dL) 235 H 10/12/18 06:15: TSH 3rd Generation 3.33 10/12/18 06:15: Fasting Glucose 254 H, Triglycerides 154, Cholesterol 132, LDL Cholesterol Direct 58, HDL Cholesterol 35 10/12/18 01:06: POC Glucose (mg/dL) 232 H 10/11/18 20:28: WBC 10.7, RBC 4.66, Hgb 12.6 L, Hct 38.9 L, MCV 83.5, MCH 27.0, MCHC 32.4, RDW 15.7 H, Plt Count 284, MPV 9.7, Gran % 58.2, Lymph % (Auto) 32.2, Ray % (Auto) 7.1 H, Eos % (Auto) 2.1, Baso % (Auto) 0.4, Gran # 6.22, Lymph # (Auto) 3.5 H, Ray # (Auto) 0.8 H, Eos # (Auto) 0.2, Baso # (Auto) 0.04 10/11/18 20:28: Alcohol, Quantitative < 10 10/11/18 20:28: Sodium 138, Potassium 3.9, Chloride 102, Carbon Dioxide 25, Anion Gap 15, BUN 18, Creatinine 0.6 L, Est GFR ( Amer) > 60, Est GFR (Non-Af Amer) > 60, Random Glucose 233 H, Calcium 9.9, Total Bilirubin 0.5, AST 49, ALT 43, Alkaline Phosphatase 76, Total Protein 7.4, Albumin 4.3, Globulin 3.0, Albumin/Globulin Ratio 1.4 10/11/18 20:28: Salicylates < 1 L, Acetaminophen < 10.0 L 10/11/18 20:19: Urine Color Yellow, Urine Appearance Clear, Urine pH 6.0, Ur Specific [place] >= 1.030, Urine Protein Negative, Urine Glucose (UA) 500 H, Urine Ketones Negative, Urine Blood Negative, Urine Nitrate Negative, Urine Bilirubin Negative, Urine Urobilinogen 0.2, Ur Leukocyte Esterase Negative 10/11/18 20:19: Urine Opiates Screen Negative, Urine Methadone Screen Negative, Ur Barbiturates Screen Negative, Ur Phencyclidine Scrn Negative, Ur Amphetamines Screen Negative, U Benzodiazepines Scrn Negative, U Oth Cocaine Metabols Negative, U Cannabinoids Screen Negative Vital Signs Temp Pulse Pulse Resp BP Pulse Ox 10/12/18 09:08 87 109/66 10/12/18 09:04 84 109/66 10/12/18 07:26 97.8 F 84 20 109/66 10/12/18 01:36 65 18 10/11/18 23:17 80 18 123/56 L 100 10/11/18 21:14 61 18 133/72 100 10/11/18 19:54 98.1 F 75 18 138/80 100 - Diagnosis (1) MDD (major depressive disorder) Current Visit: Yes Status: Acute Priority: High (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 pt was transferred to ED uneventfully will f/u on the medical site - Smoking Cessation Smoking Cessation Medication prescribed: No Reason for not providing: pt was transferred to the ED - Antipsychotic Medications Pt discharged on 2 or more routine antipsychotic medications: No
--- NOTE | 2018-11-02 15:11 | CT ---
Date of service: 11/02/2018 PROCEDURE: CT HEAD WITHOUT CONTRAST. HISTORY: stroke COMPARISON: 10/23/2018 TECHNIQUE: Axial computed tomography images were obtained through the head/brain without intravenous contrast. Radiation dose: Total exam DLP = 926.47 mGy-cm. This CT exam was performed using one or more of the following dose reduction techniques: Automated exposure control, adjustment of the mA and/or kV according to patient size, and/or use of iterative reconstruction technique. FINDINGS: HEMORRHAGE: No intracranial hemorrhage. BRAIN: Right frontotemporoparietal encephalomalacia grossly unchanged in appearance accounting for differences in technique of scanning. Minimal gyriform high attenuation is again identified likely representing cortical laminar necrosis. Once again, ischemic changes noted in the right lentiform nucleus and lombardi radiata. No significant atrophy. No generalized periventricular white matter lucency. VENTRICLES: Mild ex vacuo dilatation of the right lateral ventricle secondary to right frontotemporoparietal volume loss associated with this infarct. CALVARIUM: Unremarkable. PARANASAL SINUSES: Unremarkable as visualized. No significant inflammatory changes. MASTOID AIR CELLS: Unremarkable as visualized. No inflammatory changes. OTHER FINDINGS: None. IMPRESSION: Subacute/chronic right frontotemporoparietal infarct with encephalomalacia and mild ex vacuo dilatation of right lateral ventricle. No acute hemorrhage. No additional abnormality.
== END 2018-11-02 12:50 | disposition short-term general hospital (02) | DRG 426 ==
LOC: ED 19:40 → ERH 22:08 → OBSVTOIN 22:30 → ERH 23:05 → PSYC 23:50
PROVIDERS: ADMIT Psychiatry & Neurology Psychiatry; ATTEND Psychiatry & Neurology Psychiatry
DX: F32.9 Major depressive disorder, single episode, unspecified (principal); F06.30 Mood disorder due to known physiological condition, unspecified; R45.851 Suicidal ideations; F41.9 Anxiety disorder, unspecified; E11.9 Type 2 diabetes mellitus without complications; I10 Essential (primary) hypertension; E78.5 Hyperlipidemia, unspecified; F17.200 Nicotine dependence, unspecified, uncomplicated; Z79.4 Long term (current) use of insulin; I69.354 Hemiplegia and hemiparesis following cerebral infarction affecting left non-dominant side; Z99.3 Dependence on wheelchair; Z87.01 Personal history of pneumonia (recurrent); Z91.81 History of falling

== ENCOUNTER 2018-11-02 12:04 | Inpatient (IN) | payer OTHER ==
[2018-11-02 12:04] VITALS: BMI 20.9
[~2018-11-02 12:04] MED LIST: Gadodiamide 287 MG/ML VIAL (15ML) IV ONE
--- NOTE | 2018-11-02 13:17 | ED PDOC ---
Arrival/HPI - General Chief Complaint: Weakness/Neurological Deficit Time Seen by Provider: 11/02/18 12:05 Historian: Patient - History of Present Illness Narrative History of Present Illness (Text): 11/02/18 13:16 53 year old male, whose past medical history includes hypertension, diabetes, stoke (left sided paralysis), and hyperlipidemia, presents to the emergency department complaining of stroke. Patient had a stroke in July of 2018, he was admitted into the hospital on the October 11 for depression regarding his stroke. The psychialogist consulted the neurology team because the patient was experiencing visual hallucinations. The MRI performed yesterday shows the old stroke and a small area that may be consistent with a bleed, no new necrological deficits. The Neurology team will be treating, hold anticoagulations. Patient denies fevers, chills, headache, dizziness, chest pain, shortness of breath, dyspnea on exertion, cough, abdominal pain, nausea, vomiting, diarrhea, back pain, neck pain, or any other complaint. PMD: Dr. Hyman (female) Symptom Onset: Gradual Symptom Course: Unchanged Activities at Onset: Light Context: Other (hospital) Past Medical History - Provider Review Nursing Documentation Reviewed: Yes - Infectious Disease Hx of Infectious Diseases: None - Cardiac Hx Atrial Fibrillation: No Hx Hypertension: Yes - Pulmonary Hx Respiratory Disorders: Yes (SMOKES PPD) Hx Pneumonia: Yes (2006) - Neurological HX Cerebrovascular Accident: Yes (LEFT SIDED WEAKNESS,FACIAL DROOP 07-31-18) - HEENT Hx HEENT Disorder: No (METAL SHRAPNEL REMOVED FROM EYE) - Renal Hx Renal Disorder: No - Endocrine/Metabolic Hx Diabetes Mellitus Type 2: Yes - Hematological/Oncological Hx Blood Disorders: No - Integumentary Hx Dermatological Disorder: No - Musculoskeletal/Rheumatological Hx Musculoskeletal Disorders: No Hx Falls: Yes (TODAY 07-31-18) Hx Fractures: Yes (RIB FX,LEFT WRIST FX-JOB RELATED) - Gastrointestinal Hx Gastrointestinal Disorders: No - Genitourinary/Gynecological Hx Genitourinary Disorders: No - Psychiatric Hx Psychophysiologic Disorder: No Hx Substance Use: No - Anesthesia Hx Anesthesia: No Family/Social History - Physician Review Nursing Documentation Reviewed: Yes Family/Social History: No Known Family HX Smoking Status: Current Some Days Smoker Hx Alcohol Use: No Hx Substance Use: No Allergies/Home Meds Allergies/Adverse Reactions: Allergies No Known Allergies Allergy (Verified 10/12/18 00:32) Review of Systems - Physician Review All systems were reviewed & negative as marked: Yes - Review of Systems Constitutional: absent: Fevers Cardiovascular: absent: Chest Pain Physical Exam - Physical Exam Narrative Physical Exam (Text): 11/02/18 13:18 Constitutional: No acute distress. Head: Normocephalic. Atraumatic. Eyes: PERRL. ENT: Moist mucous membranes. Neck: Supple. Cardiovascular: Regular rate. Chest: No tenderness. Respiratory: Clear to auscultation bilaterally. GI: Soft. Nontender. Nondistended. Back: No CVA tenderness. Musculoskeletal: No tenderness or swelling of extremities. Skin: No rash. Neurologic: Alert, left sided weakness. Vital Signs Reviewed: Yes Temperature: Afebrile Blood Pressure: Normal Pulse: Regular Respiratory Rate: Normal Appearance: Positive for: Well-Appearing, Non-Toxic, Comfortable Pain Distress: None Mental Status: Positive for: Alert and Oriented X 3 Medical Decision Making ED Course and Treatment: 11/02/18 13:17 Impression: 53 year old male who presents to the emergency department complaining of stroke. Plan: -- CTA head and Neck -- Labs -- Chest X-ray -- Left shoulder x-ray -- Reassess and disposition Prior Visits: Notes and results from previous visits were reviewed. Progress Notes: 11/02/18 13:24 EKG done at 13:19 reviewed by me, shows: NSR at 73 bpm, no ST/T wave elevations. - Lab Interpretations I have reviewed the lab results: Yes - RAD Interpretation Radiology Orders: 11/02/18 13:14 ANGIO [CTA HEAD & NECK BUNDLE] [CT] Stat SHOULDER LEFT [RAD] Stat 11/02/18 13:15 CHEST ONE VIEW [RAD] Stat - EKG Interpretation Interpreted by ED Physician: Yes Type: 12 lead EKG - Scribe Statement The provider has reviewed the documentation as recorded by the Miquel Jay Provider Scribe Attestation: All medical record entries made by the Scribe were at my direction and personally dictated by me. I have reviewed the chart and agree that the record accurately reflects my personal performance of the history, physical exam, medical decision making, and the department course for this patient. I have also personally directed, reviewed, and agree with the discharge instructions and disposition. Disposition/Present on Arrival - Present on Arrival Any Indicators Present on Arrival: No History of DVT/PE: No History of Uncontrolled Diabetes: No Urinary Catheter: No History of Decub. Ulcer: No History Surgical Site Infection Following: None - Disposition Have Diagnosis and Disposition been Completed?: Yes Diagnosis: Parietal lobe infarction Disposition: HOSPITALIZED Disposition Time: 14:52 Patient Plan: Admission Patient Problems: Current Active Problems Problem Status Onset Depression Acute MDD (major depressive disorder) Acute Mood disorder due to a general medical condition Acute Suicidal ideation Acute Condition: STABLE Forms: [employer] (Tajik)
[2018-11-02 13:49] LABS: BASO # 0.04 K/mm3 (0.0-2.0); BASO % 0.4 % (0.0-3.0); EOS # 0.1 (0.0-0.7); EOS % 1.5 % (1.5-5.0); HEMOGLOBIN 13.3 g/dL (14.0-18.0); LYMPH # 2.2 (1.2-3.4); LYMPH % 23.3 % (22.0-35.0); MEAN CELL VOLUME 85.2 fl (80.0-105.0); MEAN CORPUSCULAR HEMOGLOBIN 27.4 pg (25.0-35.0); MEAN CORPUSCULAR HGB CONC 32.2 g/dl (31.0-37.0); MEAN PLATELET VOLUME 9.7 fl (7.0-11.0); MONO # 0.6 (0.1-0.6); MONO % 6.8 % (1.0-6.0); RBC 4.85 10^6/uL (3.5-6.1); WHITE BLOOD COUNT 9.5 10^3/uL (4.5-11.0)
[2018-11-02 13:58] LABS: INR 1.12; PARTIAL THROMBOPLASTIN TIME 39.3 Seconds (26.9-38.3); PROTHROMBIN TIME 12.7 SECONDS (9.4-12.5)
[2018-11-02 14:08] LABS: ALB/GLOB RATIO 1.2 (1.1-1.8); ALBUMIN 4.3 g/dL (3.0-4.8); ALT/SGPT 54 U/L (7-56); AST/SGOT 40 U/L (17-59); BLOOD UREA NITROGEN 18 mg/dL (7-21); CALCIUM 9.5 mg/dL (8.4-10.5)
[2018-11-02] MEDS ORDERED: Iohexol 350 MG/100 ML VIAL ONE (14:10)
[2018-11-02 14:16] LABS: TROPONIN I < 0.01 ng/mL
[2018-11-02 14:20] LABS: GFR NON-AFRICAN AMERICAN > 60
--- NOTE | 2018-11-02 15:15 | RAD ---
Date of service: 11/02/2018 PROCEDURE: Radiographs of the Left Shoulder HISTORY: shoulder pain COMPARISON: No prior. FINDINGS: BONES: Normal. No fracture. JOINTS: Unremarkable glenohumeral articulation. Mild acromioclavicular degenerative arthritis. SOFT TISSUES: Normal. OTHER FINDINGS: None. IMPRESSION: Mild acromioclavicular degenerative arthritis.
--- NOTE | 2018-11-02 15:15 | RAD ---
Date of service: 11/02/2018 PROCEDURE: CHEST RADIOGRAPH, 1 VIEW HISTORY: cva COMPARISON: 10/11/2018 FINDINGS: LUNGS: Clear. PLEURA: No pneumothorax or pleural fluid seen. CARDIOVASCULAR: No aortic atherosclerotic calcification present. Normal. OSSEOUS STRUCTURES: No significant abnormalities. VISUALIZED UPPER ABDOMEN: Normal. OTHER FINDINGS: None. IMPRESSION: No active disease.
--- NOTE | 2018-11-02 15:55 | CT ---
Date of service: 11/02/2018 PROCEDURE: CT Angiography of the Brain and Neck. HISTORY: cerebral infarct COMPARISON: None available. TECHNIQUE: CT angiography of the head and neck was performed following intravenous contrast administration. Coronal and sagittal maximum intensity projection reformatted images were generated. Contrast Dose: Radiation dose: Total exam DLP = 632.55 mGy-cm. This CT exam was performed using one or more of the following dose reduction techniques: Automated exposure control, adjustment of the mA and/or kV according to patient size, and/or use of iterative reconstruction technique. FINDINGS: INTERNAL CEREBRAL ARTERIES: The stenosis again seen affecting the skull base/petrous segments of the right ICA, however, moderate to severe stenoses are segmental at the cavernous and supraclinoid segments. The left skull base, petrous, cavernous and supraclinoid segments are widely patent. Left cavernous ICA atherosclerotic plaques identified without significant stenosis. Anterior communicating artery is widely patent providing 1 source of collateralization with hypoplastic or congenitally absent bilateral posterior communicating arteries, both of which are not clearly identified. ANTERIOR CEREBRAL ARTERIES: Unremarkable. A1 and A2 segments are widely patent. Smaller distal branches unremarkable, as visualized. MIDDLE CEREBRAL ARTERIES: The right M1 MCA branch appears further stenosed with minimal M2 and M3 branching into the right perisylvian sylvian distribution once again. Left MCA branching appears unremarkable as previously demonstrated. POSTERIOR CIRCULATION: Basilar Artery: Unremarkable. Distal Vertebral Arteries: Unremarkable. Posterior Cerebral Arteries: Unremarkable. Posterior Inferior Cerebellar Arteries: Unremarkable. NECK CTA: Common Carotid arteries: The bilateral common carotid appear widely patent from their origins to their bifurcations with no significant stenosis appreciated. There is extensive calcified and noncalcified plaque at the bilateral carotid bulb regions. No evidence to suggest common carotid artery dissection. Internal Carotid arteries: There is a critical stenosis of greater than 90 percent at the origin of the right ICA with stable high-grade stenosis of the proximal left ICA of greater than 75 percent. External Carotid arteries: Appear unremarkable bilaterally. Vertebral arteries: The bilateral vertebral arteries appear normal in caliber from their origins to their distal cervical segments. No significant stenosis or definite pattern of dissection. ANEURYSM/ VASCULAR MALFORMATIONS: None. OTHER FINDINGS: None. IMPRESSION: 1. Critical stenosis origin right ICA once again. Greater than 75 percent stenosis origin left ICA. 2. Moderate to severe multifocal stenosis right ICA cavernous and supraclinoid segment. No significant stenosis left cavernous and intracranial ICA. 3. Slight increase in stenosis of right M1 MCA branch with stable but poor secondary tertiary as well as perisylvian branches enhancement right MCA in the interval. Unremarkable left MCA enhancement overall. 4. Widely patent anterior communicating artery. 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 be hypoplastic as they are poorly characterized in this exam. Congenital absence is also possibility. 5. Note, examination only slightly worsened at the right MCA level compared to prior CT angiogram of the head and neck 07/31/2018. Findings discussed with Dr. Agudelo with written down and read back verification 11/02/2018 3:35 p.m..
[2018-11-02] MEDS ORDERED: Dextrose 50% SYRINGE Inj (50 ml) IV PRN (16:19)
--- NOTE | 2018-11-02 16:22 | CP.PCM.HP ---
<IbrahimaNubia milesd - Last Filed: 11/02/18 17:22> History of Present Illness - History of Present Illness History of Present Illness: Ha Alexandra, PGY-1 Medicine H&P Note for Dr. Conway: CC: Hemorrhagic stroke Pt is a 53 yo M with pmhx of HTN, DM, HLD and ischemic CVA (07/22) who presented from psych floor for hemorrhagic stroke. Pt was admitted to psych due to depression 2/2 residual L sided deficit from ischemic CVA on 07/22. Pt then noted new visual hallucinations s/p fall and was assessed by neuro team who ordered MRI Brain and hemorrhagic stroke was found on imaging. Pt was seen and states that he is still seeing lizards on his shirt. He states that he is not having a headache or any pain right now. He states that he has not noticed any changes or worsening of his L sided motor deficits. At this time the pt states that he is not having any fevers, chills, headaches, lightheaded, dizziness, chest pain, palpitations, SOB, cough, abd pain, n/v, c/d, numbness, tingling, dysuria or hematuria. He does admit to residual L sided motor weakness without change from stroke on 07/22 and residual loss of peripheral vision from previous stroke as well. Pmhx: HTN, DM, HLD and ischemic CVA (07/22) PSH: Denies Meds: Norvasc 5qd, Depakene 250BID, protonix 40qd, Lopressor 12.5 BID, Zestril 10qd, ALL: No known allergies Soc: 2 pack/day for 30 years, quit 07/22, denies any drinking or drug use. 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 Fam: Mother had heart disease and diabetes. Father with unknown medical history PMD: Dr. Hyman Pharm: [facility] [place] Present on Admission - Present on Admission Any Indicators Present on Admission: No Review of Systems - Review of Systems Review of Systems: 12 point ROS reviewed and negative except for noted in HPI above. Past Patient History - Infectious Disease Hx of Infectious Diseases: None - Past Social History Smoking Status: Current Some Days Smoker - CARDIAC Hx Atrial Fibrillation: No Hx Hypertension: Yes - PULMONARY Hx Respiratory Disorders: Yes (SMOKES PPD) Hx Pneumonia: Yes (2006) - NEUROLOGICAL HX Cerebrovascular Accident: Yes (LEFT SIDED WEAKNESS,FACIAL DROOP 07-31-18) - HEENT Hx HEENT Problems: No (METAL SHRAPNEL REMOVED FROM EYE) - RENAL Hx Chronic Kidney Disease: No - ENDOCRINE/METABOLIC Hx Diabetes Mellitus Type 2: Yes - HEMATOLOGICAL/ONCOLOGICAL Hx Blood Disorders: No - INTEGUMENTARY Hx Dermatological Problems: No - MUSCULOSKELETAL/RHEUMATOLOGICAL Hx Musculoskeletal Disorders: No Hx Falls: Yes (TODAY 07-31-18) Hx Fractures: Yes (RIB FX,LEFT WRIST FX-JOB RELATED) - GASTROINTESTINAL Hx Gastrointestinal Disorders: No - GENITOURINARY/GYNECOLOGICAL Hx Genitourinary Disorders: No - PSYCHIATRIC Hx Psychophysiologic Disorder: No Hx Substance Use: No - SURGICAL HISTORY Hx Surgeries: Yes (BLADDER SX, METAL SHRAPNEL REMOVED FROM EYE) - ANESTHESIA Hx Anesthesia: No Meds Allergies/Adverse Reactions: Allergies Allergy/AdvReac Type Severity Reaction Status Date / Time No Known Allergies Allergy Verified 10/12/18 00:32 Physical Exam - Constitutional Appears: Non-toxic, No Acute Distress - Head Exam Head Exam: ATRAUMATIC, NORMAL INSPECTION, NORMOCEPHALIC Additional comments: Pt has L sided facial droop and is unable to puff out cheeks on L side. - Eye Exam Eye Exam: EOMI, Normal appearance, PERRL - Respiratory Exam Respiratory Exam: Clear to Auscultation Bilateral, NORMAL BREATHING PATTERN. absent: Accessory Muscle Use, Rales, Rhonchi, Wheezes, Respiratory Distress - Cardiovascular Exam Cardiovascular Exam: RRR, +S1, +S2. absent: Gallop, Rubs - GI/Abdominal Exam GI & Abdominal Exam: Normal Bowel Sounds, Soft. absent: Distended, Firm, Guarding, Tenderness - Extremities Exam Extremities exam: Positive for: normal capillary refill, pedal pulses present Additional comments: Pt is unable to perform flexion or extention of L LE at any joint level. - Back Exam Back exam: NORMAL INSPECTION. absent: CVA tenderness (L), CVA tenderness (R) - Neurological Exam Neurological exam: Alert, Motor Sensory Deficit (L sided), Oriented x3 - Expanded Neurological Exam Expanded Cranial nerves: EOM's Intact: Normal, Tongue Deviation: Normal Sensory exam: Lower Extremity 2 Point Discrimination: Abnormal Left, Lower Extremity Light Touch: Abnormal Left, Lower Extremity Pin Prick: Abnormal Left, Lower Extremity Temperature: Abnormal Left, Upper Extremity 2 Point Discrimination: Abnormal Left, Upper Extremity Light Touch: Abnormal Left, Upper Extremity Pin Prick: Abnormal Left, Upper Extremity Temperature: Abnormal Left Neuro motor strength exam: Left Upper Extremity: 0, Right Upper Extremity: 5, Left Lower Extremity: 0, Right Lower Extremity: 5 DTR: Patellar Left: 3+, Patellar Right: 2+ Coma Scale Eye Opening: SPONTANEOUS Coma Scale Motor Response: OBEYS COMMANDS Coma Scale Verbal: Oriented Coma Scale Total: 15 - Psychiatric Exam Psychiatric exam: Normal Affect, Normal Mood - Skin Skin Exam: Dry, Normal Color, Warm Results - Vital Signs Recent Vital Signs: Last Vital Signs Temp Pulse 87 11/02/18 15:06 Resp 18 11/02/18 15:06 BP 120/75 11/02/18 15:06 Pulse Ox 100 11/02/18 15:06 - Labs Result Diagrams: 11/02/18 13:38 11/02/18 13:38 Labs: Laboratory Results - last 24 hr 11/02/18 11/02/18 11/02/18 13:38 13:38 13:38 WBC 9.5 RBC 4.85 Hgb 13.3 L Hct 41.3 L MCV 85.2 MCH 27.4 MCHC 32.2 RDW 16.0 H Plt Count 335 MPV 9.7 Neut % (Auto) 68.0 Lymph % (Auto) 23.3 Jerome % (Auto) 6.8 H Eos % (Auto) 1.5 Baso % (Auto) 0.4 Lymph # (Auto) 2.2 Jerome # (Auto) 0.6 Eos # (Auto) 0.1 Baso # (Auto) 0.04 Absolute Neuts (auto) 6.44 PT 12.7 H INR 1.12 APTT 39.3 H Sodium 139 Potassium 4.4 Chloride 101 Carbon Dioxide 31 Anion Gap 11 BUN 18 Creatinine 0.8 Est GFR ( Amer) > 60 Est GFR (Non-Af Amer) > 60 Random Glucose 122 H Calcium 9.5 Total Bilirubin 0.4 AST 40 ALT 54 Alkaline Phosphatase 65 Troponin I < 0.01 Total Protein 8.0 Albumin 4.3 Globulin 3.6 Albumin/Globulin Ratio 1.2 Assessment & Plan - Assessment and Plan (Free Text) Assessment: Pt is a 53 yo M with pmhx of HTN, DM, HLD and ischemic CVA (07/22) who presented from psych floor for hemorrhagic stroke. MRI 11/01/18: Subacute to chronic involving R temporal and frontal parietal ischemic infarct with hemorrhagic component. Associated residual vasogenic edema. Hemosiderin ring present. Plan: 1) Hemorrhagic stroke: - Admit to tele - MRI 11/01/18: Subacute to chronic involving R temporal and frontal parietal ischemic infarct with hemorrhagic component. Associated residual vasogenic edema. Hemosiderin ring present. - NPO pending bedside swallow eval - Lipid Panel - HOLD Asa, plavix and lovenox - Cont statin - Aspiration precautions - High fall risk - OOB w/ assistance - Head of bed elevation 30 - Neuro Q4 - VS Q4 - Neuro consult - Neurosurg Consult - Psych Consult - PT eval 2) Hx of DM: - ISS - Medium - Q6 finger sticks 3) Hx of HTN: - Please ensure SBP 120-160 - Holding home BP meds 2/2 pts BP at this time - Will continue to closely monitor - Q4 vital signs 4) Hx of HLD: - Cont lipitor 40qd PPx: GI: Pepcid DVT: SCDs, hold A/C d/t hemorrhagic stroke. Case seen and discussed with Dr. Zoraida Alexandra, PGY-1 <Navi Conway - Last Filed: 11/03/18 07:21> Results - Vital Signs Recent Vital Signs: Last Vital Signs Temp 98 F 11/03/18 05:44 Pulse 90 11/03/18 05:44 Resp 20 11/03/18 05:44 BP 117/79 11/03/18 05:44 Pulse Ox 96 11/03/18 05:44 - Labs Result Diagrams: 11/02/18 13:38 11/02/18 13:38 Labs: Laboratory Results - last 24 hr 11/02/18 11/02/18 11/02/18 13:38 13:38 13:38 WBC 9.5 RBC 4.85 Hgb 13.3 L Hct 41.3 L MCV 85.2 MCH 27.4 MCHC 32.2 RDW 16.0 H Plt Count 335 MPV 9.7 Neut % (Auto) 68.0 Lymph % (Auto) 23.3 Jerome % (Auto) 6.8 H Eos % (Auto) 1.5 Baso % (Auto) 0.4 Lymph # (Auto) 2.2 Jerome # (Auto) 0.6 Eos # (Auto) 0.1 Baso # (Auto) 0.04 Absolute Neuts (auto) 6.44 PT 12.7 H INR 1.12 APTT 39.3 H Sodium 139 Potassium 4.4 Chloride 101 Carbon Dioxide 31 Anion Gap 11 BUN 18 Creatinine 0.8 Est GFR ( Amer) > 60 Est GFR (Non-Af Amer) > 60 Random Glucose 122 H Calcium 9.5 Total Bilirubin 0.4 AST 40 ALT 54 Alkaline Phosphatase 65 Troponin I < 0.01 Total Protein 8.0 Albumin 4.3 Globulin 3.6 Albumin/Globulin Ratio 1.2 Attending/Attestation - Attestation I have personally seen and examined this patient.: Yes I have fully participated in the care of the patient.: Yes I have reviewed all pertinent clinical information: Yes Notes (Text): 11/02/18 53 year old male with past medical history of hypertension, diabetes, and CVA (07/2018) who was initially admitted under psychiatric unit for depression. He is transferred to medical floor for +MRI findings showing subacute to chronic ischemic infarction involving the right frontal, temporal and parietal lobes with accompanying hemorrhagic component. CTA head/neck showed critical stenosis of right ICA, >75% stenosis of left ICA and moderate to severe multifocal stenosis of the cavernous and supraclinoid segments of right ICA. Neurology, PT and neurosurgery evaluations are requested. Will need to discuss with neurology when to resume aspirin and plavix. Patient is on statin. Will request for psychiatry follow up. Navi Conway MD Hospitalist.
--- NOTE | 2018-11-02 18:08 | CP.PCM.CON ---
History of Present Illness - History of Present Illness History of Present Illness: Neurology Consultation (Dr. Agudelo's Service) Consulting Physician: Dr. Conway CC: New hemorrhagic component to previous ischemic CVA HPI: Mr. Leo is a 53 year old male with a past medical history significant for previous ischemic CVA with stable residual left sided weakness/left peripheral vision loss, HTN, DM2, and HLD who presented [place] [facility] [facility] after he was found to have a new hemorrhagic component to his previous ischemic CVA. Patient was diagnosed with right frontal, temporal and parietal infarction in 07/2018. He was recently admitted to the [facility] at [facility] for depression likely secondary to previous CVA. While in the U, patient was noted to have persistent visual hallucinations (alligators). Neurology was consulted for this and, at the time, ordered an MRI Brain. After the new hemorrhagic component was discovered on this MRI, patient was transferred from [facility] to the telemetry floor via the ED. Patient is currently without any new complaints and 12 point ROS is unremarkable at this time other than what was mentioned previously. PMH: As stated above PSH: Denies Family History: Social History: Former smoker with 60 year pack smoking history (quit 07/2018); Denies any alcohol or illicit drug use; Employed in appliance repair at [employer] Allergies: NKDA Home Medications: As per [facility] PMD: Dr. Hyman Review of Systems - Review of Systems Review of Systems: As stated in HPI, otherwise negative Past Patient History - Infectious Disease Hx of Infectious Diseases: None - Past Social History Smoking Status: Current Some Days Smoker - CARDIAC Hx Atrial Fibrillation: No Hx Hypertension: Yes - PULMONARY Hx Respiratory Disorders: Yes (SMOKES PPD) Hx Pneumonia: Yes (2006) - NEUROLOGICAL HX Cerebrovascular Accident: Yes (LEFT SIDED WEAKNESS,FACIAL DROOP 07-31-18) - HEENT Hx HEENT Problems: No (METAL SHRAPNEL REMOVED FROM EYE) - RENAL Hx Chronic Kidney Disease: No - ENDOCRINE/METABOLIC Hx Diabetes Mellitus Type 2: Yes - HEMATOLOGICAL/ONCOLOGICAL Hx Blood Disorders: No - INTEGUMENTARY Hx Dermatological Problems: No - MUSCULOSKELETAL/RHEUMATOLOGICAL Hx Musculoskeletal Disorders: No Hx Falls: Yes (TODAY 07-31-18) Hx Fractures: Yes (RIB FX,LEFT WRIST FX-JOB RELATED) - GASTROINTESTINAL Hx Gastrointestinal Disorders: No - GENITOURINARY/GYNECOLOGICAL Hx Genitourinary Disorders: No - PSYCHIATRIC Hx Psychophysiologic Disorder: No Hx Substance Use: No - SURGICAL HISTORY Hx Surgeries: Yes (BLADDER SX, METAL SHRAPNEL REMOVED FROM EYE) - ANESTHESIA Hx Anesthesia: No Meds Allergies/Adverse Reactions: Allergies Allergy/AdvReac Type Severity Reaction Status Date / Time No Known Allergies Allergy Verified 10/12/18 00:32 - Medications Medications: Current Medications Atorvastatin Calcium (Lipitor) 40 mg PO DIN SANDIP Dextrose (Dextrose 50% Inj) 0 ml IV STAT PRN; Protocol PRN Reason: Hypoglycemia Protocol Famotidine (Pepcid) 20 mg PO Q12 SANDIP Dextrose (Dextrose 5% In Water 1000 Ml) 1,000 mls @ 0 mls/hr IV .Q0M PRN; Protocol PRN Reason: Hypoglycemia Protocol Insulin Human Lispro (Humalog Med) 0 units SC ACHS SANDIP; Protocol Physical Exam - Constitutional Appears: No Acute Distress - Head Exam Head Exam: ATRAUMATIC, NORMOCEPHALIC - Eye Exam Eye Exam: EOMI, Normal appearance, PERRL. absent: Conjunctival injection, Nystagmus, Periorbital swelling, Periorbital tenderness, Scleral icterus Pupil Exam: NORMAL ACCOMODATION, PERRL. absent: Fixed, Irregular, Miosis, Mydriatic, Unequal - ENT Exam ENT Exam: Mucous Membranes Moist - Neck Exam Neck exam: Positive for: Full Rom - Respiratory Exam Respiratory Exam: Clear to Auscultation Bilateral, NORMAL BREATHING PATTERN - Cardiovascular Exam Cardiovascular Exam: REGULAR RHYTHM - GI/Abdominal Exam GI & Abdominal Exam: Normal Bowel Sounds, Soft. absent: Tenderness - Neurological Exam Neurological exam: Alert, CN II-XII Intact, Oriented x3, Reflexes Normal - Expanded Neurological Exam Expanded Patient oriented to: person, place, time Cranial nerves: EOM's Intact: Normal, Facial Palsey w/Forehead Movement: Normal, Facial Palsey w/o Forehead Movement: Normal, Tongue Deviation: Normal Cerebellar Function: Finger to Nose: Normal Upper motor neuron: Babinski Sign: Normal, Silvestre Neglect: Normal, Pronator Drift: Normal Sensory exam: Lower Extremity Light Touch: Normal, Upper Extremity Light Touch: Normal Neuro motor strength exam: Left Upper Extremity: 3, Right Upper Extremity: 4, Left Lower Extremity: 3, Right Lower Extremity: 4 Coma Scale Eye Opening: SPONTANEOUS Coma Scale Motor Response: OBEYS COMMANDS Coma Scale Verbal: Oriented Coma Scale Total: 15 - Psychiatric Exam Psychiatric exam: Normal Affect, Normal Mood - Skin Skin Exam: Dry, Intact, Normal Color, Warm Results - Vital Signs Recent Vital Signs: Last Vital Signs Temp Pulse 91 H 11/02/18 17:16 Resp 18 11/02/18 17:16 BP 134/75 11/02/18 17:16 Pulse Ox 95 11/02/18 17:16 - Labs Result Diagrams: 11/02/18 13:38 11/02/18 13:38 Labs: Laboratory Results - last 24 hr 11/02/18 11/02/18 11/02/18 13:38 13:38 13:38 WBC 9.5 RBC 4.85 Hgb 13.3 L Hct 41.3 L MCV 85.2 MCH 27.4 MCHC 32.2 RDW 16.0 H Plt Count 335 MPV 9.7 Neut % (Auto) 68.0 Lymph % (Auto) 23.3 [place] % (Auto) 6.8 H Eos % (Auto) 1.5 Baso % (Auto) 0.4 Lymph # (Auto) 2.2 [place] # (Auto) 0.6 Eos # (Auto) 0.1 Baso # (Auto) 0.04 Absolute Neuts (auto) 6.44 PT 12.7 H INR 1.12 APTT 39.3 H Sodium 139 Potassium 4.4 Chloride 101 Carbon Dioxide 31 Anion Gap 11 BUN 18 Creatinine 0.8 Est GFR ( Amer) > 60 Est GFR (Non-Af Amer) > 60 Random Glucose 122 H Calcium 9.5 Total Bilirubin 0.4 AST 40 ALT 54 Alkaline Phosphatase 65 Troponin I < 0.01 Total Protein 8.0 Albumin 4.3 Globulin 3.6 Albumin/Globulin Ratio 1.2 Assessment & Plan - Assessment and Plan (Free Text) Assessment: 53 year old male with a past medical history significant for previous ischemic CVA with stable residual left sided weakness/left peripheral vision loss, HTN, DM2, and HLD who presented from the [facility] [place] [facility] after he was found to have a new hemorrhagic component to his previous ischemic CVA. Plan: -MRI Brain showed subacute to chronic ischemic infarction involving the right fr ontal, temporal and parietal lobes with accompanying hemorrhagic component, associated vasogenic edema, and hemosiderin ring. -CTA Head/Neck showed critical stenosis of right ICA, >75% stenosis of left ICA, and moderate to severe multifocal stenosis of the cavernous and supraclinoid segments of right ICA -Start ASA and Plavix -Continue Lipitor -Continue PT -Continue neurochecks -Neurosurgery consulted, all recommendations appreciated -Further recommendations as per Dr. Agudelo Patient seen and case discussed with attending, Dr. Agudelo. Bull Turcios PGY2 - Date & Time Date: 11/02/18 Time: 18:08
[2018-11-02] MEDS: Insulin Lispro (humaLOG) MEDIUM Coverage SC SCH ×2 (19:01→23:35)
[2018-11-03 07:32] LABS: BASO # 0.04 K/mm3 (0.0-2.0); BASO % 0.7 % (0.0-3.0); EOS # 0.2 (0.0-0.7); HEMOGLOBIN 12.6 g/dL (14.0-18.0); LYMPH # 1.3 (1.2-3.4); LYMPH % 24.8 % (22.0-35.0); MEAN CELL VOLUME 85.7 fl (80.0-105.0); MEAN CORPUSCULAR HEMOGLOBIN 27.2 pg (25.0-35.0); MEAN CORPUSCULAR HGB CONC 31.7 g/dl (31.0-37.0); MEAN PLATELET VOLUME 9.8 fl (7.0-11.0); MONO # 0.6 (0.1-0.6); MONO % 11.5 % (1.0-6.0); RBC 4.63 10^6/uL (3.5-6.1); RED CELL DISTRIBUTION WIDTH 16.4 % (11.5-14.5); WHITE BLOOD COUNT 5.4 10^3/uL (4.5-11.0)
[2018-11-03 08:00] LABS: LDL CHOLESTEROL 71 mg/dL (0-129)
[2018-11-03 08:04] LABS: ALB/GLOB RATIO 1.2 (1.1-1.8); ALBUMIN 3.8 g/dL (3.0-4.8); ALT/SGPT 41 U/L (7-56); AST/SGOT 22 U/L (17-59); BLOOD UREA NITROGEN 20 mg/dL (7-21); CALCIUM 9.1 mg/dL (8.4-10.5); GFR NON-AFRICAN AMERICAN > 60; HDL CHOLESTEROL 35 mg/dL (29-60)
--- NOTE | 2018-11-03 10:28 | CP.PCM.PN ---
<Leydi García - Last Filed: 11/03/18 15:39> Subjective - Date & Time of Evaluation Date of Evaluation: 11/03/18 Time of Evaluation: 10:00 - Subjective Subjective: Neurology progress note Patient seen and examined at bedside. No acute distress. Patient reports headache. He denies any dizziness, changes in vision, hallucination, chest pain, SOB. Objective - Vital Signs/Intake and Output Vital Signs (last 24 hours): Temp Pulse Resp BP Pulse Ox 98 F 90 20 117/79 96 11/03/18 05:44 11/03/18 05:44 11/03/18 05:44 11/03/18 05:44 11/03/18 05:44 Intake and Output: 11/03/18 11/03/18 06:59 18:59 Intake Total 400 Balance 400 - Medications Medications: Current Medications Acetaminophen (Tylenol 325mg Tab) 650 mg PO Q6H PRN PRN Reason: Pain, moderate (4-7) Aspirin (Aspirin Chewable) 81 mg PO DAILY [facility] Atorvastatin Calcium (Lipitor) 40 mg PO DIN [facility] Last Admin: 11/02/18 19:02 Dose: Not Given Clopidogrel Bisulfate (Plavix) 75 mg PO DAILY [facility] Dextrose (Dextrose 50% Inj) 0 ml IV STAT PRN; Protocol PRN Reason: Hypoglycemia Protocol Famotidine (Pepcid) 20 mg PO Q12 [facility] Last Admin: 11/02/18 23:36 Dose: 20 mg Dextrose (Dextrose 5% In Water 1000 Ml) 1,000 mls @ 0 mls/hr IV .Q0M PRN; Protocol PRN Reason: Hypoglycemia Protocol Insulin Human Lispro (Humalog Med) 0 units SC ACHS [facility]; Protocol Last Admin: 11/02/18 23:35 Dose: Not Given - Labs Labs: 11/03/18 07:10 11/03/18 07:10 PT 12.7 SECONDS (9.4-12.5) H 11/02/18 13:38 INR 1.12 11/02/18 13:38 APTT 39.3 Seconds (26.9-38.3) H 11/02/18 13:38 - Additional Findings Additional findings: - Constitutional Appears: No Acute Distress - Head Exam Head Exam: ATRAUMATIC, NORMOCEPHALIC - Eye Exam Eye Exam: EOMI, Normal appearance, PERRL. absent: Conjunctival injection, Nystagmus, Periorbital swelling, Periorbital tenderness, Scleral icterus Pupil Exam: NORMAL ACCOMODATION, PERRL. - ENT Exam ENT Exam: Mucous Membranes Moist - Neck Exam Neck exam: Positive for: Full Rom - Respiratory Exam Respiratory Exam: Clear to Auscultation Bilateral, NORMAL BREATHING PATTERN - Cardiovascular Exam Cardiovascular Exam: REGULAR RHYTHM - GI/Abdominal Exam GI & Abdominal Exam: Normal Bowel Sounds, Soft. absent: Tenderness - Neurological Exam Neurological exam: Alert, CN II-XII Intact, Oriented x3, Reflexes Normal - Expanded Neurological Exam Expanded Patient oriented to: person, place, time Cranial nerves: EOM's Intact: Normal, Facial Palsey w/Forehead Movement: Normal, Facial Palsey w/o Forehead Movement: Normal, Tongue Deviation: Normal Cerebellar Function: Finger to Nose: Normal Upper motor neuron: Silvestre Neglect: Normal, Pronator Drift: Normal Sensory exam: Lower Extremity Light Touch: Normal, Upper Extremity Light Touch: Normal Neuro motor strength exam: Left Upper Extremity: 2, Right Upper Extremity: 4, Left Lower Extremity: 3, Right Lower Extremity: 4 Coma Scale Eye Opening: SPONTANEOUS Coma Scale Motor Response: OBEYS COMMANDS Coma Scale Verbal: Oriented Coma Scale Total: 15 - Psychiatric Exam Psychiatric exam: Normal Affect, Normal Mood - Skin Skin Exam: Dry, Intact, Normal Color, Warm Assessment and Plan - Assessment and Plan (Free Text) Assessment: 53 year old male with a PMH of 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 Plan: - MRI Brain showed subacute to chronic ischemic infarction involving the right frontal, temporal and parietal lobes with accompanying hemorrhagic component, associated vasogenic edema, and hemosiderin ring. - CTA Head/Neck showed critical stenosis of right ICA, >75% stenosis of left ICA, and moderate to severe multifocal stenosis of the cavernous and supraclinoid segments of right ICA - will transfer to ICU to continue to monitor for edema and possible midline shift - repeat CT head without contrast, if midline shift greater then 4mm, start hypertonic - Start ASA and Plavix - Continue neurochecks - Neurosurgery consulted for possible hemicraniectomy, all recommendations appreciated - neurointerventionalist consulted, Dr. Cruz - Further recommendations as per Dr. Mcclellan Patient seen and case discussed with attending, Dr. Mcclellan. <Mati Mcclellan - Last Filed: 11/15/18 15:00> Objective - Vital Signs/Intake and Output Vital Signs (last 24 hours): Temp Pulse Resp BP Pulse Ox 97.8 F 82 20 133/83 94 L 11/15/18 08:04 11/15/18 08:04 11/15/18 08:04 11/15/18 08:04 11/15/18 08:04 Intake and Output: 11/15/18 11/15/18 06:59 18:59 Intake Total 0 100 Output Total 2 Balance -2 100 - Medications Medications: Current Medications Acetaminophen (Tylenol 325mg Tab) 650 mg PO Q6H PRN PRN Reason: Pain, moderate (4-7) Last Admin: 11/14/18 18:47 Dose: 650 mg Acetaminophen (Tylenol 325 Mg Supp) 325 mg RC Q6H PRN PRN Reason: Fever >100.4 F Alprazolam (Xanax) 0.5 mg PO BID [facility]; Protocol Stop: 11/16/18 18:01 Last Admin: 11/15/18 10:56 Dose: 0.5 mg Aspirin (Aspirin Chewable) 81 mg PO DAILY [facility] Last Admin: 11/15/18 10:55 Dose: 81 mg Atorvastatin Calcium (Lipitor) 40 mg PO DIN [facility] Last Admin: 11/14/18 18:39 Dose: 40 mg Clopidogrel Bisulfate (Plavix) 75 mg PO DAILY [facility] Last Admin: 11/15/18 10:56 Dose: 75 mg Dextrose (Dextrose 50% Inj) 0 ml IV STAT PRN; Protocol PRN Reason: Hypoglycemia Protocol Famotidine (Pepcid) 20 mg PO Q12 [facility] Last Admin: 11/15/18 10:55 Dose: 20 mg Dextrose (Dextrose 5% In Water 1000 Ml) 1,000 mls @ 0 mls/hr IV .Q0M PRN; Protocol PRN Reason: Hypoglycemia Protocol Cefepime HCl (Maxipime 1gm) 1 gm in 100 mls @ 100 mls/hr IVPB Q8 [facility]; Protocol Stop: 11/22/18 22:01 Last Admin: 11/15/18 05:38 Dose: 100 mls/hr Daptomycin 440 mg/ Sodium (Chloride) 100 mls @ 200 mls/hr IV Q24H [facility] Stop: 12/12/18 10:01 Last Admin: 11/15/18 10:56 Dose: 200 mls/hr Insulin Human Lispro (Humalog Med) 0 units SC ACHS [facility]; Protocol Last Admin: 11/15/18 12:00 Dose: 3 units Lorazepam (Ativan) 2 mg IVP Q6H PRN; Protocol PRN Reason: Agitation Last Admin: 11/14/18 08:35 Dose: 2 mg Metoprolol Tartrate (Lopressor) 25 mg PO BRKDIN [facility] Last Admin: 11/15/18 11:03 Dose: 25 mg Mupirocin (Bactroban Ointment) 0 gm TOP BID [facility] Last Admin: 11/15/18 10:56 Dose: 1 applic Nicotine (Nicoderm Cq) 1 patch TD DAILY [facility] Last Admin: 11/15/18 10:56 Dose: 1 patch Vitamin A (Vitamin A & D Oint Ud Foilpak) 1 ea TOP BID [facility] Last Admin: 11/15/18 10:56 Dose: 1 ea Ziprasidone (Geodon Cap) 20 mg PO HS [facility]; Protocol Last Admin: 11/14/18 21:51 Dose: 20 mg Ziprasidone (Geodon Cap) 20 mg PO DAILY [facility]; Protocol Last Admin: 11/15/18 10:55 Dose: 20 mg Zolpidem Tartrate (Ambien) 5 mg PO HS [facility]; Protocol Last Admin: 11/14/18 21:50 Dose: 5 mg - Labs Labs: 11/14/18 06:00 11/14/18 06:00 PT 12.7 SECONDS (9.4-12.5) H 11/02/18 13:38 INR 1.12 11/02/18 13:38 APTT 39.3 Seconds (26.9-38.3) H 11/02/18 13:38 Attending/Attestation - Attestation I have personally seen and examined this patient.: Yes I have fully participated in the care of the patient.: Yes I have reviewed all pertinent clinical information, including history, physical exam and plan: Yes Notes (Text): I agree with the assessment and plan. Will continue close observation and management as outlined above.
--- NOTE | 2018-11-03 12:41 | CARD ---
APPROVED REPORT Date of service: 11/02/2018 EKG Measurement Heart [id number] <Conclusion> Normal sinus rhythm Normal ECG
--- NOTE | 2018-11-03 13:10 | CP.PCM.PN ---
<Ha Alexandra - Last Filed: 11/03/18 14:02> Subjective - Date & Time of Evaluation Date of Evaluation: 11/03/18 Time of Evaluation: 08:00 - Subjective Subjective: Ha Alexandra, PGY-1 Medicine Progress Note for Dr. Conway: Pt was seen and examined this AM at bedside. Pt was altered in the AM but he denied any visual hallucinations. Pt states that he is at home in bed, and does not remember why he is in the hospital. He states that he remembers having a seizure in July but does not remember medical team. He states that he is having no further headaches and there are no further neurologic deficits as pt can move R UE and LE spontaneously. He has no other acute complaints at this time. Objective - Vital Signs/Intake and Output Vital Signs (last 24 hours): Temp Pulse Resp BP Pulse Ox 98 F 90 20 117/79 96 11/03/18 05:44 11/03/18 05:44 11/03/18 05:44 11/03/18 05:44 11/03/18 05:44 Intake and Output: 11/03/18 11/03/18 06:59 18:59 Intake Total 400 Balance 400 - Medications Medications: Current Medications Acetaminophen (Tylenol 325mg Tab) 650 mg PO Q6H PRN PRN Reason: Pain, moderate (4-7) Aspirin (Aspirin Chewable) 81 mg PO DAILY [facility] Atorvastatin Calcium (Lipitor) 40 mg PO DIN [facility] Last Admin: 11/02/18 19:02 Dose: Not Given Clopidogrel Bisulfate (Plavix) 75 mg PO DAILY [facility] Dextrose (Dextrose 50% Inj) 0 ml IV STAT PRN; Protocol PRN Reason: Hypoglycemia Protocol Famotidine (Pepcid) 20 mg PO Q12 [facility] Last Admin: 11/02/18 23:36 Dose: 20 mg Dextrose (Dextrose 5% In Water 1000 Ml) 1,000 mls @ 0 mls/hr IV .Q0M PRN; Protocol PRN Reason: Hypoglycemia Protocol Insulin Human Lispro (Humalog Med) 0 units SC ACHS [facility]; Protocol Last Admin: 11/02/18 23:35 Dose: Not Given Nicotine (Nicoderm Cq) 1 patch TD DAILY [facility] - Labs Labs: 11/03/18 07:10 11/03/18 07:10 PT 12.7 SECONDS (9.4-12.5) H 11/02/18 13:38 INR 1.12 11/02/18 13:38 APTT 39.3 Seconds (26.9-38.3) H 11/02/18 13:38 - Constitutional Appears: Non-toxic, Confused - Head Exam Head Exam: ATRAUMATIC, NORMAL INSPECTION, NORMOCEPHALIC Additional comments: Pt has L sided facial droop and is unable to puff out cheeks on L side. - Eye Exam Eye Exam: EOMI, Normal appearance, PERRL - Respiratory Exam Respiratory Exam: Clear to Ausculation Bilateral, NORMAL BREATHING PATTERN. absent: Accessory Muscle Use, Rales, Rhonchi, Wheezes, Respiratory Distress, Stridor - Cardiovascular Exam Cardiovascular Exam: RRR, +S1, +S2. absent: Gallop, Rubs - GI/Abdominal Exam GI & Abdominal Exam: Soft, Normal Bowel Sounds. absent: Firm, Guarding, Rigid, Tenderness - Extremities Exam Additional comments: Pt is unable to perform flexion or extention of L LE at any joint level. - Neurological Exam Neurological Exam: Alert, Altered Neuro motor strength exam: Left Upper Extremity: 0, Right Upper Extremity: 5, Left Lower Extremity: 0, Right Lower Extremity: 5 Additional comments: Cranial nerves: EOM's Intact: Normal, Tongue Deviation: Normal Sensory exam: Lower Extremity 2 Point Discrimination: Abnormal Left, Lower Extremity Light Touch: Abnormal Left, Lower Extremity Pin Prick: Abnormal Left, Lower Extremity Temperature: Abnormal Left, Upper Extremity 2 Point Discrimination: Abnormal Left, Upper Extremity Light Touch: Abnormal Left, Upper Extremity Pin Prick: Abnormal Left, Upper Extremity Temperature: Abnormal Left Coma Scale Eye Opening: SPONTANEOUS Coma Scale Motor Response: OBEYS COMMANDS Coma Scale Verbal: Oriented Coma Scale Total: 15 - Psychiatric Exam Additional comments: Altered - Skin Skin Exam: Dry, Normal Color, Warm Assessment and Plan - Assessment and Plan (Free Text) Assessment: Pt is a 53 yo M with pmhx of HTN, DM, HLD and ischemic CVA (07/22) who presented from psych floor for hemorrhagic stroke. MRI 11/01/18: Subacute to chronic involving R temporal and frontal parietal ischemic infarct with hemorrhagic component. Associated residual vasogenic edema. Hemosiderin ring present. Plan: 1) Hemorrhagic stroke: - Per neuro team - ICU consult - Dr. Patel - MRI 11/01/18: Subacute to chronic involving R temporal and frontal parietal ischemic infarct with hemorrhagic component. Associated residual vasogenic edema. Hemosiderin ring present. - NPO pending bedside swallow eval - Lipid Panel - Cholesterol - 164, LDL - 71, HDL - 35, T - Asa, plavix - Cont per neuro - Cont statin - Aspiration precautions - High fall risk - OOB w/ assistance - Head of bed elevation 30 - Neuro Q4 - VS Q4 - Neuro consult, recs appreciated - Neurosurg Consult - Dr. Mcclellan - Repeat Head CT w/o contrast - Neurointerventionalist consult - Dr. Cruz - Psych Consult - Dr. Pavon - PT eval 2) Hx of DM: - ISS - Medium - Q6 finger sticks 3) Hx of HTN: - Please ensure SBP 120-160 - Holding home BP meds 2/2 pts BP at this time - Will continue to closely monitor - Q4 vital signs 4) Hx of HLD: - Cont lipitor 40qd 5) Hx of tobacco abuse: - Nicotine Patch PPx: GI: Pepcid DVT: SCDs Case seen and discussed with Dr. Zoraida Alexandra, PGY-1 <Navi Conway - Last Filed: 11/03/18 16:37> Objective - Vital Signs/Intake and Output Vital Signs (last 24 hours): Temp Pulse Resp BP Pulse Ox 98.8 F 116 H 18 131/80 96 11/03/18 16:16 11/03/18 16:22 11/03/18 16:16 11/03/18 16:16 11/03/18 16:16 Intake and Output: 11/03/18 11/03/18 06:59 18:59 Intake Total 400 Balance 400 - Medications Medications: Current Medications Acetaminophen (Tylenol 325mg Tab) 650 mg PO Q6H PRN PRN Reason: Pain, moderate (4-7) Aspirin (Aspirin Chewable) 81 mg PO DAILY [facility] Last Admin: 11/03/18 15:23 Dose: 81 mg Atorvastatin Calcium (Lipitor) 40 mg PO DIN [facility] Last Admin: 11/02/18 19:02 Dose: Not Given Clopidogrel Bisulfate (Plavix) 75 mg PO DAILY [facility] Last Admin: 11/03/18 15:22 Dose: 75 mg Dextrose (Dextrose 50% Inj) 0 ml IV STAT PRN; Protocol PRN Reason: Hypoglycemia Protocol Famotidine (Pepcid) 20 mg PO Q12 [facility] Last Admin: 11/03/18 15:25 Dose: 20 mg Dextrose (Dextrose 5% In Water 1000 Ml) 1,000 mls @ 0 mls/hr IV .Q0M PRN; Protocol PRN Reason: Hypoglycemia Protocol Insulin Human Lispro (Humalog Med) 0 units SC ACHS [facility]; Protocol Last Admin: 11/03/18 15:22 Dose: Not Given Nicotine (Nicoderm Cq) 1 patch TD DAILY [facility] Last Admin: 11/03/18 15:23 Dose: 1 patch - Labs Labs: 11/03/18 07:10 11/03/18 07:10 PT 12.7 SECONDS (9.4-12.5) H 11/02/18 13:38 INR 1.12 11/02/18 13:38 APTT 39.3 Seconds (26.9-38.3) H 11/02/18 13:38 Attending/Attestation - Attestation I have personally seen and examined this patient.: Yes I have fully participated in the care of the patient.: Yes I have reviewed all pertinent clinical information, including history, physical exam and plan: Yes Notes (Text): 11/03/18 16:34 53 year old male with past medical history of hypertension, diabetes, and CVA (07/2018) who was initially admitted under psychiatric unit for depression. He was transferred to medical floor for +MRI findings showing subacute to chronic ischemic infarction involving the right frontal, temporal and parietal lobes with accompanying hemorrhagic component. CTA head/neck showed critical stenosis of right ICA, >75% stenosis of left ICA and moderate to severe multifocal stenosis of the cavernous and supraclinoid segments of right ICA. Neurology evaluation was appreciated; cleared patient to resume aspirin and plavix. Continue with statin. Vascular surgery evaluation was requested as well; recommended outpatient follow up. PT and neurosurgery evaluation are pending. Patient will be transferred to ICU for closer monitoring. Repeat CT head ordered for today. Patient was seen by psychiatrist this morning; will follow up with recommendations. Navi Conway MD Hospitalist.
--- NOTE | 2018-11-03 13:31 | CP.PCM.CON ---
History of Present Illness - History of Present Illness History of Present Illness: Resident Consult Note for Dr. Gonzalez Patient is a 53 year old male with a past medical history HTN, DM, HLD, CVA who was transferred from behavioral health unit at [facility] after having persistent visual hallucinations and was found to have new hemorrhagic component to previous ischemic CVA on brain MRI. Patient had previous right sided ischemic stroke that resulted in left sided weakness in July 2018. Head/neck CTA showed >90% critical stenosis of right ICA, > 75% stenosis of left ICA and so surgery was consulted for possible intervention. Currently, patient admits to worsening left sided weakness and sensation changes in addition to visual hallucinations where he sees lizards. He also admits to loss of peripheral vision in his left eye which is residual from previous CVA. Denies fever, nausea, vomiting, headache, chest pain, shortness of breath. PMH: HTN, DM, HLD, CVA PSH: denies SHx: smoked 2 PPD for 30 years, denies alcohol or illicit drug use. FHx: mother (heart disease, diabetes), father (unknown) Allergies: NKDA PMD: Dr. Hyman Review of Systems - Review of Systems All systems: reviewed and no additional remarkable complaints except (as stated in HPI) Past Patient History - Infectious Disease Hx of Infectious Diseases: None - Past Social History Smoking Status: Current Some Days Smoker - CARDIAC Hx Hypertension: Yes - PULMONARY Hx Respiratory Disorders: Yes (SMOKES PPD) Hx Pneumonia: Yes (2006) - NEUROLOGICAL HX Cerebrovascular Accident: Yes (07/22, L sided weakness) - HEENT Hx HEENT Problems: No (METAL SHRAPNEL REMOVED FROM EYE) - RENAL Hx Chronic Kidney Disease: No - ENDOCRINE/METABOLIC Hx Diabetes Mellitus Type 2: Yes - HEMATOLOGICAL/ONCOLOGICAL Hx Blood Disorders: No - INTEGUMENTARY Hx Dermatological Problems: No - MUSCULOSKELETAL/RHEUMATOLOGICAL Hx Musculoskeletal Disorders: No Hx Falls: Yes (TODAY 07-31-18) Hx Fractures: Yes (RIB FX,LEFT WRIST FX-JOB RELATED) - GASTROINTESTINAL Hx Gastrointestinal Disorders: No - GENITOURINARY/GYNECOLOGICAL Hx Genitourinary Disorders: No - PSYCHIATRIC Hx Psychophysiologic Disorder: No Hx Substance Use: No - SURGICAL HISTORY Hx Surgeries: Yes (BLADDER SX, METAL SHRAPNEL REMOVED FROM EYE) - ANESTHESIA Hx Anesthesia: No Meds Allergies/Adverse Reactions: Allergies Allergy/AdvReac Type Severity Reaction Status Date / Time No Known Allergies Allergy Verified 10/12/18 00:32 - Medications Medications: Current Medications Acetaminophen (Tylenol 325mg Tab) 650 mg PO Q6H PRN PRN Reason: Pain, moderate (4-7) Aspirin (Aspirin Chewable) 81 mg PO DAILY [facility] Atorvastatin Calcium (Lipitor) 40 mg PO DIN [facility] Last Admin: 11/02/18 19:02 Dose: Not Given Clopidogrel Bisulfate (Plavix) 75 mg PO DAILY [facility] Dextrose (Dextrose 50% Inj) 0 ml IV STAT PRN; Protocol PRN Reason: Hypoglycemia Protocol Famotidine (Pepcid) 20 mg PO Q12 [facility] Last Admin: 11/02/18 23:36 Dose: 20 mg Dextrose (Dextrose 5% In Water 1000 Ml) 1,000 mls @ 0 mls/hr IV .Q0M PRN; Protocol PRN Reason: Hypoglycemia Protocol Insulin Human Lispro (Humalog Med) 0 units SC ACHS [facility]; Protocol Last Admin: 11/02/18 23:35 Dose: Not Given Nicotine (Nicoderm Cq) 1 patch TD DAILY [facility] Physical Exam - Constitutional Appears: No Acute Distress - Head Exam Head Exam: ATRAUMATIC, NORMOCEPHALIC - Eye Exam Eye Exam: Conjunctival injection (left ), EOMI, PERRL. absent: Scleral icterus - ENT Exam ENT Exam: Mucous Membranes Moist - Neck Exam Neck exam: Negative for: Lymphadenopathy, Tenderness Additional comments: no carotid bruits bilaterally - Respiratory Exam Respiratory Exam: Clear to Auscultation Bilateral, NORMAL BREATHING PATTERN. absent: Accessory Muscle Use, Rhonchi, Wheezes, Respiratory Distress - Cardiovascular Exam Cardiovascular Exam: Tachycardia, RRR, +S1, +S2. absent: Systolic Murmur - GI/Abdominal Exam GI & Abdominal Exam: Normal Bowel Sounds, Soft. absent: Distended, Firm, Rebound, Rigid, Tenderness - Extremities Exam Extremities exam: Negative for: pedal edema Additional comments: LUE edema - Neurological Exam Neurological exam: Alert Additional comments: CN II-XII grossly intact except for CN VII on left side - Expanded Neurological Exam Expanded Patient oriented to: person, place Speech: Fluid Speech Cranial nerves: EOM's Intact: Normal, Tongue Deviation: Normal Sensory exam: Lower Extremity Light Touch: Abnormal Left Neuro motor strength exam: Left Upper Extremity: 2/1, Right Upper Extremity: 5, Left Lower Extremity: 4, Right Lower Extremity: 5 Coma Scale Eye Opening: SPONTANEOUS Coma Scale Motor Response: OBEYS COMMANDS Coma Scale Verbal: Oriented Coma Scale Total: 15 - Psychiatric Exam Psychiatric exam: Anxious - Skin Skin Exam: Dry, Intact Results - Vital Signs Recent Vital Signs: Last Vital Signs Temp 98 F 11/03/18 05:44 Pulse 90 11/03/18 05:44 Resp 20 11/03/18 05:44 BP 117/79 11/03/18 05:44 Pulse Ox 96 11/03/18 05:44 - Labs Result Diagrams: 11/03/18 07:10 11/03/18 07:10 Labs: Laboratory Results - last 24 hr 11/02/18 11/02/18 11/02/18 13:38 13:38 13:38 WBC 9.5 RBC 4.85 Hgb 13.3 L Hct 41.3 L MCV 85.2 MCH 27.4 MCHC 32.2 RDW 16.0 H Plt Count 335 MPV 9.7 Neut % (Auto) 68.0 Lymph % (Auto) 23.3 [place] % (Auto) 6.8 H Eos % (Auto) 1.5 Baso % (Auto) 0.4 Lymph # (Auto) 2.2 [place] # (Auto) 0.6 Eos # (Auto) 0.1 Baso # (Auto) 0.04 Absolute Neuts (auto) 6.44 PT 12.7 H INR 1.12 APTT 39.3 H Sodium 139 Potassium 4.4 Chloride 101 Carbon Dioxide 31 Anion Gap 11 BUN 18 Creatinine 0.8 Est GFR ( Amer) > 60 Est GFR (Non-Af Amer) > 60 Random Glucose 122 H Calcium 9.5 Total Bilirubin 0.4 AST 40 ALT 54 Alkaline Phosphatase 65 Troponin I < 0.01 Total Protein 8.0 Albumin 4.3 Globulin 3.6 Albumin/Globulin Ratio 1.2 Triglycerides Cholesterol LDL Cholesterol Direct HDL Cholesterol 11/03/18 11/03/18 07:10 07:10 WBC 5.4 D RBC 4.63 Hgb 12.6 L Hct 39.7 L MCV 85.7 MCH 27.2 MCHC 31.7 RDW 16.4 H Plt Count 288 MPV 9.8 Neut % (Auto) 60.0 Lymph % (Auto) 24.8 [place] % (Auto) 11.5 H Eos % (Auto) 3.0 Baso % (Auto) 0.7 Lymph # (Auto) 1.3 [place] # (Auto) 0.6 Eos # (Auto) 0.2 Baso # (Auto) 0.04 Absolute Neuts (auto) 3.25 PT INR APTT Sodium 140 Potassium 4.5 Chloride 106 Carbon Dioxide 27 Anion Gap 12 BUN 20 Creatinine 0.8 Est GFR ( Amer) > 60 Est GFR (Non-Af Amer) > 60 Random Glucose 157 H Calcium 9.1 Total Bilirubin 0.3 AST 22 ALT 41 Alkaline Phosphatase 69 Troponin I Total Protein 7.0 Albumin 3.8 Globulin 3.2 Albumin/Globulin Ratio 1.2 Triglycerides 180 H Cholesterol 164 LDL Cholesterol Direct 71 HDL Cholesterol 35 Assessment & Plan - Assessment and Plan (Free Text) Assessment: Patient is a 53 year old male with a past medical history HTN, DM, HLD, CVA who presented with persistent visual hallucinations and was found to have new hemorrhagic component to previous CVA and symptomatic right internal carotid stenosis. Plan: - CTA shows >90% occlusion of R ICA - CT head shows R [id number] infarct - symptomatic right internal carotid stenosis 90% + - continue aspirin and plavix - outpatient followup for surgical intervention - possible carotid endarterectomy to prevent future stroke events at Dr. Zaragoza's or Dr. Laguerre's office [phone] - further management per ICU team - further recommendations per Dr. Carlos Garg PGY-1 - Date & Time Date: 11/03/18 Time: 14:00
--- NOTE | 2018-11-03 13:42 | CP.PCM.CON ---
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 Patient was previously admitted to the behavioral health unit at [facility] [place] when patient began to exhibit acute visual hallucinations. Patient was evaluated and subsequent imaging was conducted. Patent was transferred to telemetry medical floor for further monitoring. ICU consultation placed for closer monitoring in ICU s/p stroke. Patient with repeat Head CT showing no midline shift, final report pending. Patient reports previous MCA causing chronic residual left sided deficits. Patient denies chest pain, shortness of breath, abdominal pain, urinary complaints, fever, chills, nausea, vomiting. Reports depression, anxiety. Remaining 12 point ROS benign. PMH: Depression, HTN, HLD, DM2, Previous Right CVA frontal, temporal and parietal region with residual left sided weakness and left peripheral vision loss PSH: Denies SOCHX: [place]: Former, 60 pack year history, QUIT 07/2018, ETOH: Romina, ID: Denies ALL: NKDA MEDS: MAR reviewed PMD: Dr. Hyman Review of Systems - Review of Systems All systems: reviewed and no additional remarkable complaints except (as mentioned in HPI) Past Patient History - Infectious Disease Hx of Infectious Diseases: None - Past Social History Smoking Status: Current Some Days Smoker - CARDIAC Hx Hypertension: Yes - PULMONARY Hx Respiratory Disorders: Yes (SMOKES PPD) Hx Pneumonia: Yes (2006) - NEUROLOGICAL HX Cerebrovascular Accident: Yes (07/22, L sided weakness) - HEENT Hx HEENT Problems: No (METAL SHRAPNEL REMOVED FROM EYE) - RENAL Hx Chronic Kidney Disease: No - ENDOCRINE/METABOLIC Hx Diabetes Mellitus Type 2: Yes - HEMATOLOGICAL/ONCOLOGICAL Hx Blood Disorders: No - INTEGUMENTARY Hx Dermatological Problems: No - MUSCULOSKELETAL/RHEUMATOLOGICAL Hx Musculoskeletal Disorders: No Hx Falls: Yes (TODAY 07-31-18) Hx Fractures: Yes (RIB FX,LEFT WRIST FX-JOB RELATED) - GASTROINTESTINAL Hx Gastrointestinal Disorders: No - GENITOURINARY/GYNECOLOGICAL Hx Genitourinary Disorders: No - PSYCHIATRIC Hx Psychophysiologic Disorder: No Hx Substance Use: No - SURGICAL HISTORY Hx Surgeries: Yes (BLADDER SX, METAL SHRAPNEL REMOVED FROM EYE) - ANESTHESIA Hx Anesthesia: No Meds Allergies/Adverse Reactions: Allergies Allergy/AdvReac Type Severity Reaction Status Date / Time No Known Allergies Allergy Verified 10/12/18 00:32 - Medications Medications: Current Medications Acetaminophen (Tylenol 325mg Tab) 650 mg PO Q6H PRN PRN Reason: Pain, moderate (4-7) Aspirin (Aspirin Chewable) 81 mg PO DAILY [facility] Atorvastatin Calcium (Lipitor) 40 mg PO DIN [facility] Last Admin: 11/02/18 19:02 Dose: Not Given Clopidogrel Bisulfate (Plavix) 75 mg PO DAILY [facility] Dextrose (Dextrose 50% Inj) 0 ml IV STAT PRN; Protocol PRN Reason: Hypoglycemia Protocol Famotidine (Pepcid) 20 mg PO Q12 [facility] Last Admin: 11/02/18 23:36 Dose: 20 mg Dextrose (Dextrose 5% In Water 1000 Ml) 1,000 mls @ 0 mls/hr IV .Q0M PRN; Protocol PRN Reason: Hypoglycemia Protocol Insulin Human Lispro (Humalog Med) 0 units SC ACHS [facility]; Protocol Last Admin: 11/02/18 23:35 Dose: Not Given Nicotine (Nicoderm Cq) 1 patch TD DAILY [facility] Physical Exam - Head Exam Head Exam: ATRAUMATIC, NORMAL INSPECTION, NORMOCEPHALIC - Eye Exam Eye Exam: Conjunctival injection, EOMI, PERRL - ENT Exam ENT Exam: Mucous Membranes Dry - Respiratory Exam Respiratory Exam: Clear to Auscultation Bilateral, NORMAL BREATHING PATTERN. absent: Rales, Rhonchi - Cardiovascular Exam Cardiovascular Exam: REGULAR RHYTHM, +S1 - GI/Abdominal Exam GI & Abdominal Exam: Normal Bowel Sounds, Soft. absent: Guarding, Hernia, Rigid - Extremities Exam Extremities exam: Negative for: calf tenderness, pedal edema - Neurological Exam Neurological exam: Alert Additional comments: AAOx3 Speech occasionally disorganized and slightly delayed EOM intact, Facial palsey left sided with forehead movement Finger to nose intact right arm Sensory grossly intact Motor strength, LUE 2/5, LL3 3/5, RUE 4/5, RLE 4/5 Obeys commands GCS 15 - Psychiatric Exam Psychiatric exam: Anxious - Skin Skin Exam: Dry, Intact Results - Vital Signs Recent Vital Signs: Last Vital Signs Temp 98 F 11/03/18 05:44 Pulse 90 11/03/18 05:44 Resp 20 11/03/18 05:44 BP 117/79 11/03/18 05:44 Pulse Ox 96 11/03/18 05:44 - Labs Result Diagrams: 11/03/18 07:10 11/03/18 07:10 Labs: Laboratory Results - last 24 hr 11/02/18 11/02/18 11/02/18 13:38 13:38 13:38 WBC 9.5 RBC 4.85 Hgb 13.3 L Hct 41.3 L MCV 85.2 MCH 27.4 MCHC 32.2 RDW 16.0 H Plt Count 335 MPV 9.7 Neut % (Auto) 68.0 Lymph % (Auto) 23.3 [place] % (Auto) 6.8 H Eos % (Auto) 1.5 Baso % (Auto) 0.4 Lymph # (Auto) 2.2 [place] # (Auto) 0.6 Eos # (Auto) 0.1 Baso # (Auto) 0.04 Absolute Neuts (auto) 6.44 PT 12.7 H INR 1.12 APTT 39.3 H Sodium 139 Potassium 4.4 Chloride 101 Carbon Dioxide 31 Anion Gap 11 BUN 18 Creatinine 0.8 Est GFR ( Amer) > 60 Est GFR (Non-Af Amer) > 60 Random Glucose 122 H Calcium 9.5 Total Bilirubin 0.4 AST 40 ALT 54 Alkaline Phosphatase 65 Troponin I < 0.01 Total Protein 8.0 Albumin 4.3 Globulin 3.6 Albumin/Globulin Ratio 1.2 Triglycerides Cholesterol LDL Cholesterol Direct HDL Cholesterol 11/03/18 11/03/18 07:10 07:10 WBC 5.4 D RBC 4.63 Hgb 12.6 L Hct 39.7 L MCV 85.7 MCH 27.2 MCHC 31.7 RDW 16.4 H Plt Count 288 MPV 9.8 Neut % (Auto) 60.0 Lymph % (Auto) 24.8 [place] % (Auto) 11.5 H Eos % (Auto) 3.0 Baso % (Auto) 0.7 Lymph # (Auto) 1.3 [place] # (Auto) 0.6 Eos # (Auto) 0.2 Baso # (Auto) 0.04 Absolute Neuts (auto) 3.25 PT INR APTT Sodium 140 Potassium 4.5 Chloride 106 Carbon Dioxide 27 Anion Gap 12 BUN 20 Creatinine 0.8 Est GFR ( Amer) > 60 Est GFR (Non-Af Amer) > 60 Random Glucose 157 H Calcium 9.1 Total Bilirubin 0.3 AST 22 ALT 41 Alkaline Phosphatase 69 Troponin I Total Protein 7.0 Albumin 3.8 Globulin 3.2 Albumin/Globulin Ratio 1.2 Triglycerides 180 H Cholesterol 164 LDL Cholesterol Direct 71 HDL Cholesterol 35 Assessment & Plan - Assessment and Plan (Free Text) Assessment: 53 year old male with past medical history of 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 Patient to be transferred to ICU for 72 hours for further monitoring post acute hemorrhagic event. Neurology and Neurosurgery consulted and following Plan: Imaging: Brain MRI(11/01/18): -Subacute to chronic involving right temporal and frontal parietal ischemic infarct with diffusion-weighted abnormality and accompanying hemorrhagic component. Associated residual vasogenic edema. Hemosiderin ring present. Diffuse gyral enhancement consistent with luxury perfusion. Abnormal signal extends into the right cerebral peduncle and brainstem. No significant mass effect at this time. Head CT w/out contrast (11/02/18): Subacute/chronic right frontotemporoparietal infract with encephalomalacia and mild ex vacuo dilation of right lateral ventricle. No acute hemorrhage. Head/Neck CTA(11/02/18): -critical stenosis origin right ICA >75 percent stenosis origin left ICA -Moderate to severe multifocal stenosis right ICA cavernous and supraclinoid segment, no sign of stenosis left cavernous and intracranial ICA -Slight increase in stenosis M1 MCA branch with stable but poor secondary to tertiary as well as prisylvian branches enhancement right MCA in the interval -Widely patent anterior communicating artery. 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 as possibility -Slightly worsened at right MCA level compared to prior CT angiogram of the head and neck 07/31/2018 Neuro: Acute hemorrhagic event involving right temporal and frontal parietal ischemic infarct -MRI brain, Head CT, Head and Neck CTA imaging reviewed and appreciated -ICU admission for monitoring next 72 hours for cerebral edema -If greater than 4cm midline shift start 3% NS -Repeat CT head today, f/u results -Head of bed 30 degrees -Maintain Sodium 140-150 -Neuro Consulted and following, f/u recs -EEG, follow up results -Continue asa, plavix, statin -Neurochecks -Neurointerventionist consulted, Dr. Cruz -Neurosurgery consulted and following Hx of right frontal, temporal, and parietal infarct 07/2018 -Residual left sided deficits and left sided peripheral vision loss Maintain normothermia Pulm: -Supplemental O2, maintain SaO2 >90% -HOB 30 degrees Cardiac: Significant stenosis of right ICA(>75%) -Neurointervention with Dr. Cruz consulted -ASA, Plavix, Statin -outpatient followup for surgical intervention -possible carotid endarterectomy to prevent future stroke events at Dr. Zaragoza's or Dr. Laguerre's office HTN -Patient BP normotensive, continue to monitor -Maintain MAP >65mmHg GI: -GI prophylaxis with pepcid -HHD Endocrine: DM2 -ISS, ACHS -Continue with blood glucose maintenance between 140-180 range according to NICE-SUGAR trial Renal: -Monitor I/O's, Goal for more than 0.5mL/Kg of urine per hour -Monitor and replete lytes as necessary -Maintain euvolemia ID: -Afebrile, No leukocytosis -Urine, Blood clx negative -Maintain normothermia GI/DVT ppx -protonix -holding secondary to acute CVA Patient seen, case and plan discussed with attending, Dr. Patel <Teo Patel - Last Filed: 11/03/18 18:10> Meds - Medications Medications: Current Medications Acetaminophen (Tylenol 325mg Tab) 650 mg PO Q6H PRN PRN Reason: Pain, moderate (4-7) Aspirin (Aspirin Chewable) 81 mg PO DAILY [facility] Last Admin: 11/03/18 15:23 Dose: 81 mg Atorvastatin Calcium (Lipitor) 40 mg PO DIN [facility] Last Admin: 11/03/18 17:05 Dose: 40 mg Clopidogrel Bisulfate (Plavix) 75 mg PO DAILY [facility] Last Admin: 11/03/18 15:22 Dose: 75 mg Dextrose (Dextrose 50% Inj) 0 ml IV STAT PRN; Protocol PRN Reason: Hypoglycemia Protocol Famotidine (Pepcid) 20 mg PO Q12 [facility] Last Admin: 11/03/18 15:25 Dose: 20 mg Dextrose (Dextrose 5% In Water 1000 Ml) 1,000 mls @ 0 mls/hr IV .Q0M PRN; Protocol PRN Reason: Hypoglycemia Protocol Insulin Human Lispro (Humalog Med) 0 units SC ACHS [facility]; Protocol Last Admin: 11/03/18 17:04 Dose: 3 units Nicotine (Nicoderm Cq) 1 patch TD DAILY [facility] Last Admin: 11/03/18 15:23 Dose: 1 patch Results - Vital Signs Recent Vital Signs: Last Vital Signs Temp 98.8 F 11/03/18 16:16 Pulse 116 H 11/03/18 16:22 Resp 18 11/03/18 16:16 BP 131/80 11/03/18 16:16 Pulse Ox 96 11/03/18 16:16 - Labs Result Diagrams: 11/03/18 07:10 11/03/18 07:10 Labs: Laboratory Results - last 24 hr 11/03/18 11/03/18 07:10 07:10 WBC 5.4 D RBC 4.63 Hgb 12.6 L Hct 39.7 L MCV 85.7 MCH 27.2 MCHC 31.7 RDW 16.4 H Plt Count 288 MPV 9.8 Neut % (Auto) 60.0 Lymph % (Auto) 24.8 [place] % (Auto) 11.5 H Eos % (Auto) 3.0 Baso % (Auto) 0.7 Lymph # (Auto) 1.3 [place] # (Auto) 0.6 Eos # (Auto) 0.2 Baso # (Auto) 0.04 Absolute Neuts (auto) 3.25 Sodium 140 Potassium 4.5 Chloride 106 Carbon Dioxide 27 Anion Gap 12 BUN 20 Creatinine 0.8 Est GFR ( Amer) > 60 Est GFR (Non-Af Amer) > 60 Random Glucose 157 H Calcium 9.1 Total Bilirubin 0.3 AST 22 ALT 41 Alkaline Phosphatase 69 Total Protein 7.0 Albumin 3.8 Globulin 3.2 Albumin/Globulin Ratio 1.2 Triglycerides 180 H Cholesterol 164 LDL Cholesterol Direct 71 HDL Cholesterol 35 Attending/Attestation - Attestation I have personally seen and examined this patient.: Yes I have fully participated in the care of the patient.: Yes I have reviewed all pertinent clinical information: Yes Notes (Text): 11/03/18 18:[address] Patel note 11/03/18 18:05 53 yo male with R. MCA infarct was admitted to ICU for concern for malignant brain edema as per neurology service. Patient is alert, awake and oriented x 3, maintain airways well, only minimal flattening of nasolabial fold on a left side (but does have dense hemiplegia on a left side of both Upper and lower extremities). Na 140, CTH-no midline shift. Afebrile. euvolemic. neurosurgery on stand by. No signs of herniation clinically and radiographically. dvt/gi prophylaxis. ccm time 40 min
[2018-11-03] MEDS: Insulin Lispro (humaLOG) MEDIUM Coverage SC SCH ×4 (15:21→21:00)
--- NOTE | 2018-11-03 15:23 | CT ---
Date of service: 11/03/2018 PROCEDURE: CT HEAD WITHOUT CONTRAST. HISTORY: edema, cerebral COMPARISON: 10/23/2018 TECHNIQUE: Axial computed tomography images were obtained through the head/brain without intravenous contrast. Radiation dose: Total exam DLP = 949.8 mGy-cm. This CT exam was performed using one or more of the following dose reduction techniques: Automated exposure control, adjustment of the mA and/or kV according to patient size, and/or use of iterative reconstruction technique. FINDINGS: HEMORRHAGE: No intracranial hemorrhage. BRAIN: No mass effect or edema. No significant change in a large right middle cerebral artery distribution infarct. No evidence of significant mass effect. VENTRICLES: Unremarkable. No hydrocephalus. CALVARIUM: Unremarkable. PARANASAL SINUSES: Unremarkable as visualized. No significant inflammatory changes. MASTOID AIR CELLS: Unremarkable as visualized. No inflammatory changes. OTHER FINDINGS: None. IMPRESSION: No significant change in a large right middle cerebral artery distribution infarct. No evidence of significant mass effect.
--- NOTE | 2018-11-03 20:27 | CP.PCM.PN ---
Subjective - Date & Time of Evaluation Date of Evaluation: 11/03/18 Time of Evaluation: 20:24 - Subjective Subjective: caLLED BECAUSE OF findings on MRI done 2 days ago There is no acute hemmorhage there is evedence of hemmorhage based on finding that there is hemosiderin in the infarcted area it takes approx 2 weeks for the blood to present as hemosiderin and can last for over 4 months There is no indication that the MRI shows any new findings no neurosurgical intervention indicated Objective - Vital Signs/Intake and Output Vital Signs (last 24 hours): Temp Pulse Resp BP Pulse Ox 98.8 F 115 H 26 H 141/75 97 11/03/18 16:16 11/03/18 19:40 11/03/18 19:40 11/03/18 19:05 11/03/18 20:20 Intake and Output: 11/03/18 11/04/18 18:59 06:59 Intake Total 460 Balance 460 - Medications Medications: Current Medications Acetaminophen (Tylenol 325mg Tab) 650 mg PO Q6H PRN PRN Reason: Pain, moderate (4-7) Aspirin (Aspirin Chewable) 81 mg PO DAILY [facility] Last Admin: 11/03/18 15:23 Dose: 81 mg Atorvastatin Calcium (Lipitor) 40 mg PO DIN [facility] Last Admin: 11/03/18 17:05 Dose: 40 mg Clopidogrel Bisulfate (Plavix) 75 mg PO DAILY [facility] Last Admin: 11/03/18 15:22 Dose: 75 mg Dextrose (Dextrose 50% Inj) 0 ml IV STAT PRN; Protocol PRN Reason: Hypoglycemia Protocol Famotidine (Pepcid) 20 mg PO Q12 [facility] Last Admin: 11/03/18 15:25 Dose: 20 mg Dextrose (Dextrose 5% In Water 1000 Ml) 1,000 mls @ 0 mls/hr IV .Q0M PRN; Protocol PRN Reason: Hypoglycemia Protocol Insulin Human Lispro (Humalog Med) 0 units SC ACHS [facility]; Protocol Last Admin: 11/03/18 17:04 Dose: 3 units Nicotine (Nicoderm Cq) 1 patch TD DAILY [facility] Last Admin: 11/03/18 15:23 Dose: 1 patch - Labs Labs: 11/03/18 07:10 11/03/18 07:10 PT 12.7 SECONDS (9.4-12.5) H 11/02/18 13:38 INR 1.12 11/02/18 13:38 APTT 39.3 Seconds (26.9-38.3) H 11/02/18 13:38
--- NOTE | 2018-11-03 21:13 | CON ---
DATE: 11/03/2018 HISTORY OF PRESENT ILLNESS: The patient is a 53-year-old male who was profound depression,okay with hallucinations on 10/11/2018 to 11/02/2018 and so he was transferred to the medical floor yesterday. MRI conformed that patient suffered a new stroke while on the psychiatric unit. This was suspected because although patient complained of hallucinations during the course of his hospitalizations, the quality of his hallucinations changed over the weekend and the patient saw crocodiles and zombies, suppose the colors and headlights. Psychiatric medications were not resumed as the patient is recovering from the stroke. I met with the patient at bedside and he is oriented to location, circumstances and superficially cooperative, have been related to behavioral issues according to the patient circumstances. He is still depressed, however, he denies any hopelessness or suicidal thoughts. He wants to live. He actually is showing improvement and hallucinations at this time. His attention is inconsistent, but responses are fairly consistent with everything questioning. Patient has been cooperative with staff members and he does not appear to be respond to internal stimuli and gratefulness for psychiatric help thus far and further followup on the medical floor while he recuperate. The family denies any major occasions of a major psychiatric concerns and appears to be focused mainly on his medical recovery. PHYSICAL EXAMINATION: VITAL SIGNS: Reviewed. MEDICATIONS: Patients only psychiatric medications were not resumed as of yet. 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 Patient's focus is inconsistence. RECOMMENDATIONS: We will continue to monitor patient on the medical floor as he recuperates. No acute indications for psychiatric medications at this time, although the patient still needs to be psychiatrically monitored. As noted, the provider will continue holding Elavil, Depakote, Prozac and Seroquel, and follow up with patient in the a.m. on 11/04/2018. Ryan Foster MD
[2018-11-03] MEDS ORDERED: Dexmedetomidine 400mcg/100mL 400 MCG/100 ML BOTTLE IV PRN (22:40)
[2018-11-04 07:26] LABS: BASO # 0.04 K/mm3 (0.0-2.0); BASO % 0.8 % (0.0-3.0); EOS # 0.1 (0.0-0.7); EOS % 1.8 % (1.5-5.0); HEMOGLOBIN 12.8 g/dL (14.0-18.0); LYMPH % 39.4 % (22.0-35.0); MEAN CELL VOLUME 84.9 fl (80.0-105.0); MEAN PLATELET VOLUME 9.7 fl (7.0-11.0); MONO # 0.5 (0.1-0.6); RBC 4.57 10^6/uL (3.5-6.1); RED CELL DISTRIBUTION WIDTH 15.7 % (11.5-14.5); WHITE BLOOD COUNT 5.1 10^3/uL (4.5-11.0)
[2018-11-04 07:39] LABS: ALB/GLOB RATIO 1.2 (1.1-1.8); ALBUMIN 3.8 g/dL (3.0-4.8); ALT/SGPT 44 U/L (7-56); AST/SGOT 22 U/L (17-59); BLOOD UREA NITROGEN 23 mg/dL (7-21); CALCIUM 9.3 mg/dL (8.4-10.5); GFR NON-AFRICAN AMERICAN > 60
--- NOTE | 2018-11-04 08:15 | CP.CCUPN ---
<Moisés Avalos - Last Filed: 11/04/18 10:17> CCU Subjective - Physician Review Subjective (Free Text): 11/04/18 08:07 Fabian Avalos PGY2 - ICU Progress Note Patient seen and examined this AM. Patient noted to be resting in bed comfortably with precedex gtt active at 0.4 mcg. Patient was noted to be agitated overnight with continued hallucinations. No reports of declining mentation, motor function or speech irregularities from overnight team. Patient reports mild pain associated with his right foot. Denies hallucinations this AM, reports feeling calm. Denies chest pain, shortness of breath, abdominal pain, nausea, vomiting, fever, chills, severe headache, changes in vision. CCU Objective - Vital Signs / Intake & Output Intake and Output (Last 8hrs): Intake & Output 11/03/18 11/04/18 11/04/18 22:59 06:59 14:59 Intake Total 460 11 Balance 460 11 Intake: IV 11 Oral 460 - Physical Exam Head: Positive for: Atraumatic, Normocephalic Extroacular Muscles: Positive for: EOMI Conjunctiva: Positive for: Injected Mouth: Positive for: Moist Mucous Membranes Respiratory/Chest: Positive for: Clear to Auscultation, Good Air Exchange. Negative for: Respiratory Distress Cardiovascular: Positive for: Regular Rate and Rhythm, Normal S1, S2 Abdomen: Positive for: Normal Bowel Sounds. Negative for: Tenderness, Distention Upper Extremity: Positive for: Edema (left > Right), NORMAL PULSES, Other (Left arm with minimal contracture and muscle wasting) Neurological: Positive for: Other (Hemineglect of upper and lower left sided extremities, left facial palsy appreciated, no slurred speech appreciated) Skin: Positive for: Dry Psychiatric: Positive for: Alert, Oriented x 3 - Medications Active Medications: Active Medications Generic Name Dose Route Start Last Admin Trade Name Freq PRN Reason Stop Dose Admin Acetaminophen 650 mg 11/03/18 00:05 11/04/18 01:15 Tylenol 325mg Tab PO 650 mg Q6H PRN Administration Pain, moderate (4-7) Aspirin 81 mg 11/03/18 10:00 11/03/18 15:23 Aspirin Chewable PO 81 mg DAILY SANDIP Administration Atorvastatin Calcium 40 mg 11/02/18 17:00 11/03/18 17:05 Lipitor PO 40 mg DIN SANDIP Administration Clopidogrel Bisulfate 75 mg 11/03/18 10:00 11/03/18 15:22 Plavix PO 75 mg DAILY SANDIP Administration Dextrose 0 ml 11/02/18 16:19 Dextrose 50% Inj IV STAT PRN Hypoglycemia Protocol Protocol Famotidine 20 mg 11/02/18 22:00 11/04/18 01:15 Pepcid PO 20 mg Q12 SANDIP Administration Dextrose 1,000 mls @ 0 mls/hr 11/02/18 16:19 Dextrose 5% In Water 1000 Ml IV .Q0M PRN Hypoglycemia Protocol Protocol Per Protocol Dexmedetomidine HCl 400 mcg in 100 mls @ 3.579 mls/hr 11/03/18 22:40 11/04/18 01:53 Precedex 400mcg/100ml IV 0.4 mcg/kg/hr .Q24H PRN 7.158 mls/hr Agitation Titration Protocol 0.2 MCG/KG/HR Insulin Human Lispro 0 units 11/02/18 16:30 11/03/18 21:00 Humalog Med SC Not Given ACHS SANDIP Protocol Nicotine 1 patch 11/03/18 12:45 11/03/18 15:23 Nicoderm Cq TD 1 patch DAILY SANDIP Administration - Patient Studies Lab Studies: Lab Studies 11/04/18 11/04/18 11/03/18 Range/Units 06:50 06:50 21:01 WBC 5.1 (4.5-11.0) 10^3/uL RBC 4.57 (3.5-6.1) 10^6/uL Hgb 12.8 L (14.0-18.0) g/dL Hct 38.8 L (42.0-52.0) % MCV 84.9 (80.0-105.0) fl MCH 28.0 (25.0-35.0) pg MCHC 33.0 (31.0-37.0) g/dl RDW 15.7 H (11.5-14.5) % Plt Count 284 (120.0-450.0) 10^3/uL MPV 9.7 (7.0-11.0) fl Neut % (Auto) 49.0 L (50.0-68.0) % Lymph % (Auto) 39.4 H (22.0-35.0) % [place] % (Auto) 9.0 H (1.0-6.0) % Eos % (Auto) 1.8 (1.5-5.0) % Baso % (Auto) 0.8 (0.0-3.0) % Lymph # (Auto) 2.0 (1.2-3.4) [place] # (Auto) 0.5 (0.1-0.6) Eos # (Auto) 0.1 (0.0-0.7) Baso # (Auto) 0.04 (0.0-2.0) K/mm3 Absolute Neuts (auto) 2.50 (1.4-6.5) Sodium 140 (132-148) mmol/L Potassium 4.7 (3.6-5.0) mmol/L Chloride 105 (98-107) mmol/L Carbon Dioxide 29 (21-33) mmol/L Anion Gap 11 (10-20) BUN 23 H (7-21) mg/dL Creatinine 0.7 L (0.8-1.5) mg/dl Est GFR ( Amer) > 60 Est GFR (Non-Af Amer) > 60 POC Glucose (mg/dL) 227 H (65-110) mg/dL Random Glucose 200 H (70-110) mg/dL Calcium 9.3 (8.4-10.5) mg/dL Total Bilirubin 0.3 (0.2-1.3) mg/dL AST 22 (17-59) U/L ALT 44 (7-56) U/L Alkaline Phosphatase 65 (38-126) U/L Total Protein 6.9 (5.8-8.3) g/dL Albumin 3.8 (3.0-4.8) g/dL Globulin 3.1 gm/dL Albumin/Globulin Ratio 1.2 (1.1-1.8) Laboratory Results - last 24 hr 11/03/18 11/04/18 11/04/18 21:01 06:50 06:50 WBC 5.1 RBC 4.57 Hgb 12.8 L Hct 38.8 L MCV 84.9 MCH 28.0 MCHC 33.0 RDW 15.7 H Plt Count 284 MPV 9.7 Neut % (Auto) 49.0 L Lymph % (Auto) 39.4 H [place] % (Auto) 9.0 H Eos % (Auto) 1.8 Baso % (Auto) 0.8 Lymph # (Auto) 2.0 [place] # (Auto) 0.5 Eos # (Auto) 0.1 Baso # (Auto) 0.04 Absolute Neuts (auto) 2.50 Sodium 140 Potassium 4.7 Chloride 105 Carbon Dioxide 29 Anion Gap 11 BUN 23 H Creatinine 0.7 L Est GFR ( Amer) > 60 Est GFR (Non-Af Amer) > 60 POC Glucose (mg/dL) 227 H Random Glucose 200 H Calcium 9.3 Total Bilirubin 0.3 AST 22 ALT 44 Alkaline Phosphatase 65 Total Protein 6.9 Albumin 3.8 Globulin 3.1 Albumin/Globulin Ratio 1.2 Radiology Impressions: Radiology Impressions Head CT 11/03/18 13:39 IMPRESSION: No significant change in a large right middle cerebral artery distribution infarct. No evidence of significant mass effect. Fingerstick Blood Sugar Results: 227 Review of Systems - Review of Systems All systems: reviewed and no additional remarkable complaints except (as mentioned in HPI) Critical Care Progress Note - Nutrition Nutrition: Nutrition Category Date Time Status Consistent Carbohydrate [DIET] Diets 11/03/18 Lunch Ordered Assessment/Plan - Assessment and Plan (Free Text) Assessment: 53 year old male with past medical history of previous CVA, HTN, major depression disorder who was admitted to ICU with concern for malignant brain edema after experiencing Right MCA infarct as by evidence of recent Brain MRI. Patient monitored in ICU for possible malignant brain tarah, patient noted to be stable at this time with no acute changes in neuro evaluation Plan: Imaging: Brain MRI(11/01/18): -Subacute to chronic involving right temporal and frontal parietal ischemic infarct with diffusion-weighted abnormality and accompanying hemorrhagic component. Associated residual vasogenic edema. Hemosiderin ring present. Diffuse gyral enhancement consistent with luxury perfusion. Abnormal signal extends into the right cerebral peduncle and brainstem. No significant mass effect at this time. Head CT w/out contrast (11/02/18): Subacute/chronic right frontotemporoparietal infract with encephalomalacia and mild ex vacuo dilation of right lateral ventricle. No acute hemorrhage. Head/Neck CTA(11/02/18): -critical stenosis origin right ICA >75 percent stenosis origin left ICA -Moderate to severe multifocal stenosis right ICA cavernous and supraclinoid segment, no sign of stenosis left cavernous and intracranial ICA -Slight increase in stenosis M1 MCA branch with stable but poor secondary to tertiary as well as prisylvian branches enhancement right MCA in the interval -Widely patent anterior communicating artery. 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 as possibility -Slightly worsened at right MCA level compared to prior CT angiogram of the head and neck 07/31/2018 Neuro: Acute hemorrhagic event involving right temporal and frontal parietal ischemic infarct -MRI brain, Head CT, Head and Neck CTA imaging reviewed and appreciated -ICU admission for monitoring next 72 hours for cerebral edema -If greater than 4cm midline shift start 3% NS -Repeat CT head today, f/u results -Head of bed 30 degrees for optimal cerebral venous outflow -Maintain Sodium 140-150 -Neuro Consulted and following, f/u recs -EEG, follow up results -Continue neurocheck/evaluation -Neurointerventionist consulted, Dr. Cruz, follow up recs -Neurosurgery consulted with Dr. Martinez - Recs for no neurosurgical intervention at this point - Imaging showing chronic > acute findings -Precedex overnight for agitation/hallucination as secondary effect from CVA vs. underlying psychosis -Attempt to hold precedex for continued monitoring of neuro status Hx of right frontal, temporal, and parietal infarct 07/2018 -Residual left sided deficits and left sided peripheral vision loss -Maintain normothermia Pulm: -Supplemental O2, maintain SaO2 >90% -HOB 30 degrees Cardiac: Significant stenosis of right ICA(>75%) -Neurointervention with Dr. Cruz consulted -ASA, Plavix, Statin -outpatient followup for surgical intervention -possible carotid endarterectomy to prevent future stroke events at Dr. Zaragoza's or Dr. Laguerre's office -continue to follow up HTN -Patient BP normotensive, continue to monitor -Maintain MAP >65mmHg GI: -GI prophylaxis with pepcid -HHD Endocrine: DM2 -ISS, ACHS -Continue with blood glucose maintenance between 140-180 range according to NICE-SUGAR trial Renal: -Monitor I/O's, Goal for more than 0.5mL/Kg of urine per hour -Maintain adequate sodium control of 140-150 -Monitor and replete lytes as necessary -Maintain euvolemia ID: -Afebrile, No leukocytosis -Urine, Blood clx negative -Maintain normothermia Psych: Major Depression with psychotic symptoms, Psychosis secondary CVA -Underlying psychosis noted prior to recent intracranial hemorrhage -No acute interventions from psych -Continue to hold elavil, Depakote, prozac and seroquel GI/DVT ppx -Pepcid -holding secondary to acute CVA Patient seen, case and plan discussed with attending, Dr. Patel <Teo Patel - Last Filed: 11/04/18 16:56> CCU Objective - Vital Signs / Intake & Output Intake and Output (Last 8hrs): Intake & Output 11/04/18 11/04/18 11/04/18 06:59 14:59 22:59 Intake Total 778 Output Total 550 Balance 228 Weight 143 lb Intake: IV 58 Right Antecubital 47 Oral 720 Tube Feeding 0 TPN/PPN 0 Blood Product 0 Lipid 0 Albumin 0 Other 0 Output: Urine 550 Urine, Voided 550 Stool 0 Urine/Stool Mix 0 Emesis 0 Oral Regurgitation 0 Other 0 Other: # Voids Urine, Voided 2 # Bowel Movements 0 - Medications Active Medications: Active Medications Generic Name Dose Route Start Last Admin Trade Name Freq PRN Reason Stop Dose Admin Acetaminophen 650 mg 11/03/18 00:05 11/04/18 01:15 Tylenol 325mg Tab PO 650 mg Q6H PRN Administration Pain, moderate (4-7) Aspirin 81 mg 11/03/18 10:00 11/04/18 10:41 Aspirin Chewable PO 81 mg DAILY SANDIP Administration Atorvastatin Calcium 40 mg 11/02/18 17:00 11/03/18 17:05 Lipitor PO 40 mg DIN SANDIP Administration Clopidogrel Bisulfate 75 mg 11/03/18 10:00 11/04/18 10:41 Plavix PO 75 mg DAILY SANDIP Administration Dextrose 0 ml 11/02/18 16:19 Dextrose 50% Inj IV STAT PRN Hypoglycemia Protocol Protocol Famotidine 20 mg 11/02/18 22:00 11/04/18 10:41 Pepcid PO 20 mg Q12 SANDIP Administration Dextrose 1,000 mls @ 0 mls/hr 11/02/18 16:19 Dextrose 5% In Water 1000 Ml IV .Q0M PRN Hypoglycemia Protocol Protocol Per Protocol Dexmedetomidine HCl 400 mcg in 100 mls @ 3.579 mls/hr 11/03/18 22:40 11/04/18 01:53 Precedex 400mcg/100ml IV 0.4 mcg/kg/hr .Q24H PRN 7.158 mls/hr Agitation Titration Protocol 0.2 MCG/KG/HR Sodium Chloride 1,000 mls @ 100 mls/hr 11/04/18 12:15 11/04/18 12:17 Sodium Chloride 0.9% IV 100 mls/hr .Q10H SANDIP Administration Insulin Human Lispro 0 units 11/02/18 16:30 11/04/18 11:30 Humalog Med SC Not Given ACHS SANDIP Protocol Nicotine 1 patch 11/03/18 12:45 11/04/18 10:41 Nicoderm Cq TD 1 patch DAILY SANDIP Administration - Patient Studies Lab Studies: Lab Studies 11/04/18 11/04/18 11/04/18 Range/Units 11:09 07:21 06:50 WBC (4.5-11.0) 10^3/uL RBC (3.5-6.1) 10^6/uL Hgb (14.0-18.0) g/dL Hct (42.0-52.0) % MCV (80.0-105.0) fl MCH (25.0-35.0) pg MCHC (31.0-37.0) g/dl RDW (11.5-14.5) % Plt Count (120.0-450.0) 10^3/uL MPV (7.0-11.0) fl Neut % (Auto) (50.0-68.0) % Lymph % (Auto) (22.0-35.0) % [place] % (Auto) (1.0-6.0) % Eos % (Auto) (1.5-5.0) % Baso % (Auto) (0.0-3.0) % Lymph # (Auto) (1.2-3.4) [place] # (Auto) (0.1-0.6) Eos # (Auto) (0.0-0.7) Baso # (Auto) (0.0-2.0) K/mm3 Absolute Neuts (auto) (1.4-6.5) Sodium 140 (132-148) mmol/L Potassium 4.7 (3.6-5.0) mmol/L Chloride 105 (98-107) mmol/L Carbon Dioxide 29 (21-33) mmol/L Anion Gap 11 (10-20) BUN 23 H (7-21) mg/dL Creatinine 0.7 L (0.8-1.5) mg/dl Est GFR ( Amer) > 60 Est GFR (Non-Af Amer) > 60 POC Glucose (mg/dL) 179 H 220 H (65-110) mg/dL Random Glucose 200 H (70-110) mg/dL Calcium 9.3 (8.4-10.5) mg/dL Total Bilirubin 0.3 (0.2-1.3) mg/dL AST 22 (17-59) U/L ALT 44 (7-56) U/L Alkaline Phosphatase 65 (38-126) U/L Total Protein 6.9 (5.8-8.3) g/dL Albumin 3.8 (3.0-4.8) g/dL Globulin 3.1 gm/dL Albumin/Globulin Ratio 1.2 (1.1-1.8) 11/04/18 11/03/18 Range/Units 06:50 21:01 WBC 5.1 (4.5-11.0) 10^3/uL RBC 4.57 (3.5-6.1) 10^6/uL Hgb 12.8 L (14.0-18.0) g/dL Hct 38.8 L (42.0-52.0) % MCV 84.9 (80.0-105.0) fl MCH 28.0 (25.0-35.0) pg MCHC 33.0 (31.0-37.0) g/dl RDW 15.7 H (11.5-14.5) % Plt Count 284 (120.0-450.0) 10^3/uL MPV 9.7 (7.0-11.0) fl Neut % (Auto) 49.0 L (50.0-68.0) % Lymph % (Auto) 39.4 H (22.0-35.0) % [place] % (Auto) 9.0 H (1.0-6.0) % Eos % (Auto) 1.8 (1.5-5.0) % Baso % (Auto) 0.8 (0.0-3.0) % Lymph # (Auto) 2.0 (1.2-3.4) [place] # (Auto) 0.5 (0.1-0.6) Eos # (Auto) 0.1 (0.0-0.7) Baso # (Auto) 0.04 (0.0-2.0) K/mm3 Absolute Neuts (auto) 2.50 (1.4-6.5) Sodium (132-148) mmol/L Potassium (3.6-5.0) mmol/L Chloride (98-107) mmol/L Carbon Dioxide (21-33) mmol/L Anion Gap (10-20) BUN (7-21) mg/dL Creatinine (0.8-1.5) mg/dl Est GFR ( Amer) Est GFR (Non-Af Amer) POC Glucose (mg/dL) 227 H (65-110) mg/dL Random Glucose (70-110) mg/dL Calcium (8.4-10.5) mg/dL Total Bilirubin (0.2-1.3) mg/dL AST (17-59) U/L ALT (7-56) U/L Alkaline Phosphatase (38-126) U/L Total Protein (5.8-8.3) g/dL Albumin (3.0-4.8) g/dL Globulin gm/dL Albumin/Globulin Ratio (1.1-1.8) Laboratory Results - last 24 hr 11/03/18 11/04/18 11/04/18 21:01 06:50 06:50 WBC 5.1 RBC 4.57 Hgb 12.8 L Hct 38.8 L MCV 84.9 MCH 28.0 MCHC 33.0 RDW 15.7 H Plt Count 284 MPV 9.7 Neut % (Auto) 49.0 L Lymph % (Auto) 39.4 H [place] % (Auto) 9.0 H Eos % (Auto) 1.8 Baso % (Auto) 0.8 Lymph # (Auto) 2.0 [place] # (Auto) 0.5 Eos # (Auto) 0.1 Baso # (Auto) 0.04 Absolute Neuts (auto) 2.50 Sodium 140 Potassium 4.7 Chloride 105 Carbon Dioxide 29 Anion Gap 11 BUN 23 H Creatinine 0.7 L Est GFR ( Amer) > 60 Est GFR (Non-Af Amer) > 60 POC Glucose (mg/dL) 227 H Random Glucose 200 H Calcium 9.3 Total Bilirubin 0.3 AST 22 ALT 44 Alkaline Phosphatase 65 Total Protein 6.9 Albumin 3.8 Globulin 3.1 Albumin/Globulin Ratio 1.2 11/04/18 11/04/18 07:21 11:09 WBC RBC Hgb Hct MCV MCH MCHC RDW Plt Count MPV Neut % (Auto) Lymph % (Auto) [place] % (Auto) Eos % (Auto) Baso % (Auto) Lymph # (Auto) [place] # (Auto) Eos # (Auto) Baso # (Auto) Absolute Neuts (auto) Sodium Potassium Chloride Carbon Dioxide Anion Gap BUN Creatinine Est GFR ( Amer) Est GFR (Non-Af Amer) POC Glucose (mg/dL) 220 H 179 H Random Glucose Calcium Total Bilirubin AST ALT Alkaline Phosphatase Total Protein Albumin Globulin Albumin/Globulin Ratio Radiology Impressions: Radiology Impressions Head CT 11/04/18 10:57 IMPRESSION: Stable chronic infarct right MCA distribution and related degenerative change. Diffuse cerebral atrophy chronic microangiopathy are reiterated. No acute intra hemorrhage or definitive acute subacute sign of brain infarction appreciable. Critical Care Progress Note - Nutrition Nutrition: Nutrition Category Date Time Status Consistent Carbohydrate [DIET] Diets 11/03/18 Lunch Ordered Attending/Attestation - Attestation I have personally seen and examined this patient.: Yes I have fully participated in the care of the patient.: Yes I have reviewed all pertinent clinical information: Yes Notes (Text): 11/04/18 16:[address] Patel note
[2018-11-04] MEDS: Insulin Lispro (humaLOG) MEDIUM Coverage SC SCH ×4 (08:52→22:00)
--- NOTE | 2018-11-04 11:38 | CP.PCM.PCO ---
Addendum Addendum: I met with patient at bedside. Although patient is conscious, he doesn't want to engage in an interview. He prefers to rest. Patient has just met with medical student a few minutes earlier and confirmed depression and improvement of hallucinations. He denied SI. His communication was minimal during this encounter as well. Psychiatry will continue to follow up. Will hold medications as patient is monitored. Next f/u will be on 11/05/18.
[2018-11-04] MEDS: Sodium Chloride 0.9% 1,000 ML IV SCH (12:17)
--- NOTE | 2018-11-04 13:28 | CP.PCM.PN ---
<Bull Turcios - Last Filed: 11/04/18 13:29> Subjective - Date & Time of Evaluation Date of Evaluation: 11/04/18 Time of Evaluation: 13:25 - Subjective Subjective: Neurology Progress Note: Patient seen and assessed at bedside in ICU. Patient was noted to be agitated overnight requiring Precedex sedation, which was discontinued prior to this assessment. Patient reports that he has pain in his left but notes that this is chronic. Patient denies any further complaints and 12 point ROS is unremarkable outside of what has already been mentioned above. Objective - Vital Signs/Intake and Output Vital Signs (last 24 hours): Temp Pulse Resp BP Pulse Ox 97.9 F 62 10 L 130/77 100 11/04/18 00:01 11/04/18 11:20 11/04/18 11:20 11/04/18 11:00 11/04/18 11:20 Intake and Output: 11/04/18 11/04/18 06:59 18:59 Intake Total 778 Output Total 550 Balance 228 - Medications Medications: Current Medications Acetaminophen (Tylenol 325mg Tab) 650 mg PO Q6H PRN PRN Reason: Pain, moderate (4-7) Last Admin: 11/04/18 01:15 Dose: 650 mg Aspirin (Aspirin Chewable) 81 mg PO DAILY [facility] Last Admin: 11/04/18 10:41 Dose: 81 mg Atorvastatin Calcium (Lipitor) 40 mg PO DIN [facility] Last Admin: 11/03/18 17:05 Dose: 40 mg Clopidogrel Bisulfate (Plavix) 75 mg PO DAILY [facility] Last Admin: 11/04/18 10:41 Dose: 75 mg Dextrose (Dextrose 50% Inj) 0 ml IV STAT PRN; Protocol PRN Reason: Hypoglycemia Protocol Famotidine (Pepcid) 20 mg PO Q12 [facility] Last Admin: 11/04/18 10:41 Dose: 20 mg Dextrose (Dextrose 5% In Water 1000 Ml) 1,000 mls @ 0 mls/hr IV .Q0M PRN; Protocol PRN Reason: Hypoglycemia Protocol Dexmedetomidine HCl (Precedex 400mcg/100ml) 400 mcg in 100 mls @ 3.579 mls/hr IV .Q24H PRN; Protocol PRN Reason: Agitation Last Titration: 11/04/18 01:53 Dose: 0.4 mcg/kg/hr, 7.158 mls/hr Sodium Chloride (Sodium Chloride 0.9%) 1,000 mls @ 100 mls/hr IV .Q10H [facility] Last Admin: 11/04/18 12:17 Dose: 100 mls/hr Insulin Human Lispro (Humalog Med) 0 units SC ACHS [facility]; Protocol Last Admin: 11/04/18 11:30 Dose: Not Given Nicotine (Nicoderm Cq) 1 patch TD DAILY [facility] Last Admin: 11/04/18 10:41 Dose: 1 patch - Labs Labs: 11/04/18 06:50 11/04/18 06:50 PT 12.7 SECONDS (9.4-12.5) H 11/02/18 13:38 INR 1.12 11/02/18 13:38 APTT 39.3 Seconds (26.9-38.3) H 11/02/18 13:38 - Additional Findings Additional findings: - Constitutional Appears: No Acute Distress - Head Exam Head Exam: ATRAUMATIC, NORMOCEPHALIC - Eye Exam Eye Exam: EOMI, Normal appearance, PERRL. absent: Conjunctival injection, Nystagmus, Periorbital swelling, Periorbital tenderness, Scleral icterus Pupil Exam: NORMAL ACCOMODATION, PERRL. - ENT Exam ENT Exam: Mucous Membranes Moist - Neck Exam Neck exam: Positive for: Full Rom - Respiratory Exam Respiratory Exam: Clear to Auscultation Bilateral, NORMAL BREATHING PATTERN - Cardiovascular Exam Cardiovascular Exam: REGULAR RHYTHM - GI/Abdominal Exam GI & Abdominal Exam: Normal Bowel Sounds, Soft. absent: Tenderness - Neurological Exam Neurological exam: Alert, CN II-XII Intact, Oriented x3, Reflexes Normal - Expanded Neurological Exam Expanded Patient oriented to: person, place, time Cranial nerves: EOM's Intact: Normal, Facial Palsey w/Forehead Movement: Normal, Facial Palsey w/o Forehead Movement: Normal, Tongue Deviation: Normal Cerebellar Function: Finger to Nose: Normal Upper motor neuron: Silvestre Neglect: Normal, Pronator Drift: Normal Sensory exam: Lower Extremity Light Touch: Normal, Upper Extremity Light Touch: Normal Neuro motor strength exam: Left Upper Extremity: 2, Right Upper Extremity: 4, Le ft Lower Extremity: 3, Right Lower Extremity: 4 Coma Scale Eye Opening: SPONTANEOUS Coma Scale Motor Response: OBEYS COMMANDS Coma Scale Verbal: Oriented Coma Scale Total: 15 - Psychiatric Exam Psychiatric exam: Normal Affect, Normal Mood - Skin Skin Exam: Dry, Intact, Normal Color, Warm Assessment and Plan - Assessment and Plan (Free Text) Assessment: 53 year old male with a past medical history significant for 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 Plan: -MRI Brain showed subacute to chronic ischemic infarction involving the right frontal, temporal and parietal lobes with accompanying hemorrhagic component, associated vasogenic edema, and hemosiderin ring. -CTA Head/Neck showed critical stenosis of right ICA, >75% stenosis of left ICA, and moderate to severe multifocal stenosis of the cavernous and supraclinoid segments of right ICA -Repeat CT Head pending; If midline shift present and greater than 4mm, will start hypertonic saline treatment -Continue ASA and Plavix -Continue neurochecks -Neurosurgery consulted (Dr. Martinez) and no neurosurgical interventions indicated at this time; All recommendations appreciated -Neurointerventionalist consulted (Dr. Cruz) and recommends observation at this time; All recommendations appreciated -Further recommendations as per Dr. Mcclellan Disposition: Patient will require 24 more hours of ICU level care to complete a total of 72 hours. Will order repeat CT Head for the AM. Patient seen and case discussed with attending, Dr. Mcclellan. Bull Turcios PGY2 <Mati Mcclellan - Last Filed: 11/08/18 02:18> Objective - Vital Signs/Intake and Output Vital Signs (last 24 hours): Temp Pulse Resp BP Pulse Ox 98.2 F 112 H 20 138/85 97 11/08/18 00:01 11/08/18 00:01 11/08/18 00:01 11/08/18 00:01 11/08/18 00:01 Intake and Output: 11/07/18 11/08/18 18:59 06:59 Intake Total 640 Balance 640 - Medications Medications: Current Medications Acetaminophen (Tylenol 325mg Tab) 650 mg PO Q6H PRN PRN Reason: Pain, moderate (4-7) Last Admin: 11/07/18 09:30 Dose: 650 mg Aspirin (Aspirin Chewable) 81 mg PO DAILY [facility] Last Admin: 11/07/18 09:17 Dose: 81 mg Atorvastatin Calcium (Lipitor) 40 mg PO DIN [facility] Last Admin: 11/07/18 17:12 Dose: 40 mg Clopidogrel Bisulfate (Plavix) 75 mg PO DAILY [facility] Last Admin: 11/07/18 09:17 Dose: 75 mg Dextrose (Dextrose 50% Inj) 0 ml IV STAT PRN; Protocol PRN Reason: Hypoglycemia Protocol Famotidine (Pepcid) 20 mg PO Q12 [facility] Last Admin: 11/07/18 21:21 Dose: 20 mg Dextrose (Dextrose 5% In Water 1000 Ml) 1,000 mls @ 0 mls/hr IV .Q0M PRN; Protocol PRN Reason: Hypoglycemia Protocol Sodium Chloride (Sodium Chloride 0.9%) 1,000 mls @ 100 mls/hr IV .Q10H [facility] Last Admin: 11/07/18 20:06 Dose: 100 mls/hr Insulin Human Lispro (Humalog Med) 0 units SC ACHS [facility]; Protocol Last Admin: 11/07/18 17:12 Dose: 1 units Lorazepam (Ativan) 0.5 mg IVP Q4H PRN; Protocol PRN Reason: Agitation Last Admin: 11/07/18 19:51 Dose: 0.5 mg Mupirocin (Bactroban Ointment) 0 gm TOP BID [facility] Last Admin: 11/07/18 17:11 Dose: 1 applic Nicotine (Nicoderm Cq) 1 patch TD DAILY [facility] Last Admin: 11/07/18 09:17 Dose: 1 patch - Labs Labs: 11/07/18 07:00 11/07/18 07:00 PT 12.7 SECONDS (9.4-12.5) H 11/02/18 13:38 INR 1.12 11/02/18 13:38 APTT 39.3 Seconds (26.9-38.3) H 11/02/18 13:38 Attending/Attestation - Attestation I have personally seen and examined this patient.: Yes I have fully participated in the care of the patient.: Yes I have reviewed all pertinent clinical information, including history, physical exam and plan: Yes Notes (Text): I agree with the assessment and plan. Large right MCA subacute and acute stroke. Will continue management as outlined above.
--- NOTE | 2018-11-04 14:20 | CP.PCM.PN ---
<Ha Alexandra - Last Filed: 11/04/18 14:10> Subjective - Date & Time of Evaluation Date of Evaluation: 11/04/18 Time of Evaluation: 14:11 - Subjective Subjective: Ha Alexandra, PGY-1 Medicine Progress Note for Dr. Conway: Pt was seen and examined this AM at bedside. Pt was somnolent in the AM but he denied any visual hallucinations. Pt was started on precedex for agitation overnight. He is oriented today AOx3. He states that he is having no further headaches and there are no further neurologic deficits as pt can move R UE and LE spontaneously. He has no other acute complaints at this time. At this time pt has no SI/HI. Objective - Vital Signs/Intake and Output Vital Signs (last 24 hours): Temp Pulse Resp BP Pulse Ox 97.9 F 62 10 L 130/77 100 11/04/18 00:01 11/04/18 11:20 11/04/18 11:20 11/04/18 11:00 11/04/18 11:20 Intake and Output: 11/04/18 11/04/18 06:59 18:59 Intake Total 778 Output Total 550 Balance 228 - Medications Medications: Current Medications Acetaminophen (Tylenol 325mg Tab) 650 mg PO Q6H PRN PRN Reason: Pain, moderate (4-7) Last Admin: 11/04/18 01:15 Dose: 650 mg Aspirin (Aspirin Chewable) 81 mg PO DAILY [facility] Last Admin: 11/04/18 10:41 Dose: 81 mg Atorvastatin Calcium (Lipitor) 40 mg PO DIN [facility] Last Admin: 11/03/18 17:05 Dose: 40 mg Clopidogrel Bisulfate (Plavix) 75 mg PO DAILY [facility] Last Admin: 11/04/18 10:41 Dose: 75 mg Dextrose (Dextrose 50% Inj) 0 ml IV STAT PRN; Protocol PRN Reason: Hypoglycemia Protocol Famotidine (Pepcid) 20 mg PO Q12 [facility] Last Admin: 11/04/18 10:41 Dose: 20 mg Dextrose (Dextrose 5% In Water 1000 Ml) 1,000 mls @ 0 mls/hr IV .Q0M PRN; Protocol PRN Reason: Hypoglycemia Protocol Dexmedetomidine HCl (Precedex 400mcg/100ml) 400 mcg in 100 mls @ 3.579 mls/hr IV .Q24H PRN; Protocol PRN Reason: Agitation Last Titration: 11/04/18 01:53 Dose: 0.4 mcg/kg/hr, 7.158 mls/hr Sodium Chloride (Sodium Chloride 0.9%) 1,000 mls @ 100 mls/hr IV .Q10H [facility] Last Admin: 11/04/18 12:17 Dose: 100 mls/hr Insulin Human Lispro (Humalog Med) 0 units SC ACHS [facility]; Protocol Last Admin: 11/04/18 11:30 Dose: Not Given Nicotine (Nicoderm Cq) 1 patch TD DAILY [facility] Last Admin: 11/04/18 10:41 Dose: 1 patch - Labs Labs: 11/04/18 06:50 11/04/18 06:50 PT 12.7 SECONDS (9.4-12.5) H 11/02/18 13:38 INR 1.12 11/02/18 13:38 APTT 39.3 Seconds (26.9-38.3) H 11/02/18 13:38 - Constitutional Appears: No Acute Distress - Head Exam Head Exam: ATRAUMATIC, NORMAL INSPECTION, NORMOCEPHALIC Additional comments: Pt has L sided facial droop and is unable to puff out cheeks on L side. - Eye Exam Eye Exam: EOMI, Normal appearance, PERRL - Respiratory Exam Respiratory Exam: Clear to Ausculation Bilateral, NORMAL BREATHING PATTERN. absent: Accessory Muscle Use, Rhonchi, Wheezes, Respiratory Distress, Stridor - Cardiovascular Exam Cardiovascular Exam: RRR, +S1, +S2. absent: Gallop, Rubs - GI/Abdominal Exam GI & Abdominal Exam: Soft, Normal Bowel Sounds. absent: Firm, Guarding, Rigid, Tenderness - Extremities Exam Additional comments: Pt is unable to perform flexion or extention of L LE at any joint level. - Back Exam Back Exam: NORMAL INSPECTION. absent: CVA tenderness (L), CVA tenderness (R) - Neurological Exam Neurological Exam: Alert, Oriented x3 Neuro motor strength exam: Left Upper Extremity: 0, Right Upper Extremity: 5, Left Lower Extremity: 0, Right Lower Extremity: 5 Additional comments: Cranial nerves: EOM's Intact: Normal, Tongue Deviation: Normal Sensory exam: Lower Extremity 2 Point Discrimination: Abnormal Left, Lower Extremity Light Touch: Abnormal Left, Lower Extremity Pin Prick: Abnormal Left, Lower Extremity Temperature: Abnormal Left, Upper Extremity 2 Point Discrimination: Abnormal Left, Upper Extremity Light Touch: Abnormal Left, Upper Extremity Pin Prick: Abnormal Left, Upper Extremity Temperature: Abnormal Left Coma Scale Eye Opening: SPONTANEOUS Coma Scale Motor Response: OBEYS COMMANDS Coma Scale Verbal: Oriented Coma Scale Total: 15 - Psychiatric Exam Psychiatric exam: Normal Affect, Normal Mood - Skin Skin Exam: Dry, Normal Color, Warm Assessment and Plan - Assessment and Plan (Free Text) Assessment: Pt is a 53 yo M with pmhx of HTN, DM, HLD and ischemic CVA (07/22) who presented from psych floor for hemorrhagic stroke. MRI 11/01/18: Subacute to chronic involving R temporal and frontal parietal ischemic infarct with hemorrhagic component. Associated residual vasogenic edema. Hemosiderin ring present. Head and neck CT: 1. Critical stenosis origin R ICA. Greater than 75% stenosis origin L ICA. 2. Mod-severe multifocal stenosis R ICA cavernous and supreclinoid seg ment. No sig stenosis L cavernous and intracranial ICA. 3. Slight increase in stenosis of R M1 MCA. CT head 11/03: No change in large MCA distribution infarct, No evidence of midline shift. Pending read on repeat CT head. Plan: 1) Hemorrhagic stroke: - Pt transferred to ICU - Will cont to monitor in ICU for 72 hours to monitor for worsening of edema or midline shift. - MRI 11/01/18: Subacute to chronic involving R temporal and frontal parietal ischemic infarct with hemorrhagic component. Associated residual vasogenic edema. Hemosiderin ring present. - Head and neck CT:11/02/18: 1. Critical stenosis origin R ICA. Greater than 75% stenosis origin L ICA. 2. Mod-severe multifocal stenosis R ICA cavernous and supreclinoid segment. No sig stenosis L cavernous and intracranial ICA. 3. Slight increase in stenosis of R M1 MCA. please refer to full report for additional details - CT head 11/03: No change in large MCA distribution infarct, No evidence of midline shift. - CT Head 11/04: Pending official read. - Lipid Panel - Cholesterol - 164, LDL - 71, HDL - 35, T - Asa, plavix - Cont per neuro - Cont statin - Aspiration precautions - High fall risk - OOB w/ assistance - Head of bed elevation 30 - Neuro Q4 - VS Q4 - ICU Consult - Dr. Patel - Neuro consult - Dr. Mcclellan - Repeat Head CT w/o contrast to monitor for 72 hrs - Neurosurg Consult - Dr. Martinez - No neurosurgical intervention at this time - Neurointerventionalist consult - Dr. Cruz - Psych Consult - Dr. Foster - No psych intervention at this time - PT eval - CHERRY 2) Hx of DM: - ISS - Medium - Q6 finger sticks 3) Hx of HTN: - Holding BP meds at this time - Please keep SBP between 120-160 - Will continue to closely monitor - Q4 vital signs 4) Hx of HLD: - Cont lipitor 40qd 5) Hx of tobacco abuse: - Nicotine Patch PPx: GI: Pepcid DVT: SCDs Case seen and discussed with Dr. Zoraida Alexandra, PGY-1 <Navi Conway - Last Filed: 11/04/18 15:01> Objective - Vital Signs/Intake and Output Vital Signs (last 24 hours): Temp Pulse Resp BP Pulse Ox 97.9 F 62 10 L 130/77 100 11/04/18 00:01 11/04/18 11:20 11/04/18 11:20 11/04/18 11:00 11/04/18 11:20 Intake and Output: 11/04/18 11/04/18 06:59 18:59 Intake Total 778 Output Total 550 Balance 228 - Medications Medications: Current Medications Acetaminophen (Tylenol 325mg Tab) 650 mg PO Q6H PRN PRN Reason: Pain, moderate (4-7) Last Admin: 11/04/18 01:15 Dose: 650 mg Aspirin (Aspirin Chewable) 81 mg PO DAILY [facility] Last Admin: 11/04/18 10:41 Dose: 81 mg Atorvastatin Calcium (Lipitor) 40 mg PO DIN [facility] Last Admin: 11/03/18 17:05 Dose: 40 mg Clopidogrel Bisulfate (Plavix) 75 mg PO DAILY [facility] Last Admin: 11/04/18 10:41 Dose: 75 mg Dextrose (Dextrose 50% Inj) 0 ml IV STAT PRN; Protocol PRN Reason: Hypoglycemia Protocol Famotidine (Pepcid) 20 mg PO Q12 [facility] Last Admin: 11/04/18 10:41 Dose: 20 mg Dextrose (Dextrose 5% In Water 1000 Ml) 1,000 mls @ 0 mls/hr IV .Q0M PRN; Protocol PRN Reason: Hypoglycemia Protocol Dexmedetomidine HCl (Precedex 400mcg/100ml) 400 mcg in 100 mls @ 3.579 mls/hr IV .Q24H PRN; Protocol PRN Reason: Agitation Last Titration: 11/04/18 01:53 Dose: 0.4 mcg/kg/hr, 7.158 mls/hr Sodium Chloride (Sodium Chloride 0.9%) 1,000 mls @ 100 mls/hr IV .Q10H [facility] Last Admin: 11/04/18 12:17 Dose: 100 mls/hr Insulin Human Lispro (Humalog Med) 0 units SC ACHS [facility]; Protocol Last Admin: 11/04/18 11:30 Dose: Not Given Nicotine (Nicoderm Cq) 1 patch TD DAILY [facility] Last Admin: 11/04/18 10:41 Dose: 1 patch - Labs Labs: 11/04/18 06:50 11/04/18 06:50 PT 12.7 SECONDS (9.4-12.5) H 11/02/18 13:38 INR 1.12 11/02/18 13:38 APTT 39.3 Seconds (26.9-38.3) H 11/02/18 13:38 Attending/Attestation - Attestation I have personally seen and examined this patient.: Yes I have fully participated in the care of the patient.: Yes I have reviewed all pertinent clinical information, including history, physical exam and plan: Yes Notes (Text): 11/04/18 14:57 53 year old male with past medical history of hypertension, diabetes, and CVA (07/2018) who was initially admitted under psychiatric unit for depression. He was transferred to medical floor for +MRI findings showing subacute to chronic ischemic infarction involving the right frontal, temporal and parietal lobes with accompanying hemorrhagic component. CTA head/neck showed critical stenosis of right ICA, >75% stenosis of left ICA and moderate to severe multifocal stenosis of the cavernous and supraclinoid segments of right ICA. He was transferred to ICU for close ICU monitoring. Neurology is following. Neurosurgery and vasculary evaluations were also appreciated. Repeat CT head today is pending. Patient is on aspirin, plavix and statin. Psychiatry is following. PT evaluation. Navi Conway MD Hospitalist.
--- NOTE | 2018-11-04 15:13 | CT ---
Date of service: 11/04/2018 PROCEDURE: CT HEAD WITHOUT CONTRAST. HISTORY: ischemic stroke COMPARISON: Noncontrast head CT examinations 11/02/2018 and 11/03/2018. TECHNIQUE: Axial computed tomography images were obtained through the head/brain without intravenous contrast. Radiation dose: Total exam DLP = 879.29 mGy-cm. This CT exam was performed using one or more of the following dose reduction techniques: Automated exposure control, adjustment of the mA and/or kV according to patient size, and/or use of iterative reconstruction technique. FINDINGS: HEMORRHAGE: No intracranial hemorrhage. BRAIN: Large chronic right MCA distribution infarct not significantly changed in the interval. Diffuse cerebral atrophy chronic microangiopathy are reiterated. No significant interval change. Wallerian degeneration reiterated at the right cerebral peduncle and daria. VENTRICLES: Unremarkable. No hydrocephalus. CALVARIUM: Unremarkable. PARANASAL SINUSES: Unremarkable as visualized. No significant inflammatory changes. MASTOID AIR CELLS: Unremarkable as visualized. No inflammatory changes. OTHER FINDINGS: None. IMPRESSION: Stable chronic infarct right MCA distribution and related degenerative change. Diffuse cerebral atrophy chronic microangiopathy are reiterated. No acute intra hemorrhage or definitive acute subacute sign of brain infarction appreciable.
--- NOTE | 2018-11-04 15:38 | PN ---
DATE: 11/04/2018 SUBJECTIVE: The patient is seen and examined at bedside. He is somnolent but easily arousable. The Precedex is off. He is going for CAT scan of the head. PHYSICAL EXAMINATION: VITAL SIGNS: Blood pressure 130/77, heart rate 61, oxygen saturation 98%, respiratory rate 11. HEENT: Head and neck atraumatic. LUNGS: Clear to auscultation bilaterally. HEART: Regular rate and rhythm. S1 and S2 normal. MUSCULOSKELETAL: No C/C/E. NEUROLOGIC: The patient has dense hemiplegia in the left upper and lower extremity. Right-side motor strength is 5/5. SKIN: Moist. PSYCHIATRY: The patient is alert, somnolent but easily arousable and oriented x3. LABORATORY DATA: WBC 5.1, hemoglobin 12.8, platelet count 284. Sodium 140, potassium 4.7, chloride 105, carbon dioxide 29, BUN 23, creatinine 0.7, glucose 220, AST 22, ALT 44, total bilirubin 0.3. MEDICATIONS: Tylenol p.r.n., aspirin, Lipitor, Plavix, Precedex p.r.n., Pepcid, regular insulin sliding scale medium protocol, nicotine patch. ASSESSMENT AND PLAN: This is a 53-year-old gentleman who was admitted to intensive care unit out of concern for ensuing malignant brain edema; however, physical examination and clinical evaluation does not support his diagnosis at present time. The patient is alert, awake and oriented x3. He does not have progression of his neurological deficit. The CAT scan yesterday did not show any midline shift. The patient will be going for a CAT scan of the head today to follow up on head imaging. We will continue to target euvolemia, euglycemia, normothermia and oxygen saturation more than 90%. We will continue with head of bed elevated at 130 degrees. We will maintain sodium between 140 and 150 and higher if clinical symptoms of increased cranial pressure develop. We will maintain pCO2 within 30 to 40 mmHg if needed. We will continue with deep vein thrombosis and gastrointestinal prophylaxis. addendum: CTH--no progression. patient is calm, somnolent but easily arousable and when so, alert and oriented x 3 ccm time 40 min Teo Patel MD [facility]
[2018-11-05] MEDS: Sodium Chloride 0.9% 1,000 ML IV SCH (00:10)
--- NOTE | 2018-11-05 08:22 | CP.PCM.PN ---
<Bull Turcios - Last Filed: 11/05/18 14:20> Subjective - Date & Time of Evaluation Date of Evaluation: 11/05/18 Time of Evaluation: 08:18 - Subjective Subjective: Neurology Progress Note: Patient seen and assessed at bedside in ICU. Patient noted to be agitated overnight requiring sedation with adequate resolution of the agitation. Patient currently denies any complaints and further 12 point ROS unremarkable at this time. Objective - Vital Signs/Intake and Output Vital Signs (last 24 hours): Temp Pulse Resp BP Pulse Ox 97.4 F L 52 L 11 L 166/84 H 98 11/05/18 04:00 11/05/18 06:20 11/05/18 06:20 11/05/18 04:00 11/05/18 06:20 Intake and Output: 11/05/18 11/05/18 06:59 18:59 Intake Total 1450 Output Total 200 Balance 1250 - Medications Medications: Current Medications Acetaminophen (Tylenol 325mg Tab) 650 mg PO Q6H PRN PRN Reason: Pain, moderate (4-7) Last Admin: 11/04/18 01:15 Dose: 650 mg Aspirin (Aspirin Chewable) 81 mg PO DAILY [facility] Last Admin: 11/04/18 10:41 Dose: 81 mg Atorvastatin Calcium (Lipitor) 40 mg PO DIN [facility] Last Admin: 11/04/18 18:16 Dose: 40 mg Clopidogrel Bisulfate (Plavix) 75 mg PO DAILY [facility] Last Admin: 11/04/18 10:41 Dose: 75 mg Dextrose (Dextrose 50% Inj) 0 ml IV STAT PRN; Protocol PRN Reason: Hypoglycemia Protocol Famotidine (Pepcid) 20 mg PO Q12 [facility] Last Admin: 11/04/18 22:00 Dose: Not Given Dextrose (Dextrose 5% In Water 1000 Ml) 1,000 mls @ 0 mls/hr IV .Q0M PRN; Protocol PRN Reason: Hypoglycemia Protocol Dexmedetomidine HCl (Precedex 400mcg/100ml) 400 mcg in 100 mls @ 3.579 mls/hr IV .Q24H PRN; Protocol PRN Reason: Agitation Last Titration: 11/04/18 01:53 Dose: 0.4 mcg/kg/hr, 7.158 mls/hr Sodium Chloride (Sodium Chloride 0.9%) 1,000 mls @ 100 mls/hr IV .Q10H [facility] Last Admin: 11/05/18 00:10 Dose: 100 mls/hr Insulin Human Lispro (Humalog Med) 0 units SC ACHS [facility]; Protocol Last Admin: 11/04/18 22:00 Dose: Not Given Nicotine (Nicoderm Cq) 1 patch TD DAILY [facility] Last Admin: 11/04/18 10:41 Dose: 1 patch - Labs Labs: 11/04/18 06:50 11/04/18 06:50 PT 12.7 SECONDS (9.4-12.5) H 11/02/18 13:38 INR 1.12 11/02/18 13:38 APTT 39.3 Seconds (26.9-38.3) H 11/02/18 13:38 - Additional Findings Additional findings: - Constitutional Appears: No Acute Distress - Head Exam Head Exam: ATRAUMATIC, NORMOCEPHALIC - Eye Exam Eye Exam: EOMI, Normal appearance, PERRL. absent: Conjunctival injection, Nys tagmus, Periorbital swelling, Periorbital tenderness, Scleral icterus Pupil Exam: NORMAL ACCOMODATION, PERRL. - ENT Exam ENT Exam: Mucous Membranes Moist - Neck Exam Neck exam: Positive for: Full Rom - Respiratory Exam Respiratory Exam: Clear to Auscultation Bilateral, NORMAL BREATHING PATTERN - Cardiovascular Exam Cardiovascular Exam: REGULAR RHYTHM - GI/Abdominal Exam GI & Abdominal Exam: Normal Bowel Sounds, Soft. absent: Tenderness - Neurological Exam Neurological exam: Alert, CN II-XII Intact, Oriented x3, Reflexes Normal - Expanded Neurological Exam Expanded Patient oriented to: person, place, time Cranial nerves: EOM's Intact: Normal, Facial Palsey w/Forehead Movement: Normal, Facial Palsey w/o Forehead Movement: Normal, Tongue Deviation: Normal Cerebellar Function: Finger to Nose: Normal Upper motor neuron: Silvestre Neglect: Normal, Pronator Drift: Normal Sensory exam: Lower Extremity Light Touch: Normal, Upper Extremity Light Touch: Normal Neuro motor strength exam: Left Upper Extremity: 0, Right Upper Extremity: 4, Left Lower Extremity: 0, Right Lower Extremity: 4 Coma Scale Eye Opening: SPONTANEOUS Coma Scale Motor Response: OBEYS COMMANDS Coma Scale Verbal: Oriented Coma Scale Total: 15 - Psychiatric Exam Psychiatric exam: Normal Affect, Normal Mood - Skin Skin Exam: Dry, Intact, Normal Color, Warm Assessment and Plan - Assessment and Plan (Free Text) Assessment: 53 year old male with a past medical history significant for 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 Plan: -MRI Brain (11/01) showed subacute to chronic ischemic infarction involving the right frontal, temporal and parietal lobes with accompanying hemorrhagic component, associated vasogenic edema, and hemosiderin ring -CT Head (11/05) showed no interval changes in right MCA infarct -CT Head (11/04) showed no interval changes in right MCA infarct -CT Head (11/03) showed no interval changes in right MCA infarct -CTA Head/Neck (11/02) showed critical stenosis of right ICA, >75% stenosis of left ICA, and moderate to severe multifocal stenosis of the cavernous and supraclinoid segments of right ICA -Continue ASA and Plavix -Continue PT -Neurosurgery consulted (Dr. Martinez) and no neurosurgical interventions indicated at this time; All recommendations appreciated -Neurointerventionalist consulted (Dr. Cruz) and recommends observation at this time; All recommendations appreciated -Further recommendations as per Dr. Mcclellan Disposition: From a neurological perspective, patient will no longer require ICU level of care and can be transferred to either telemetry or remote telemetry. Neurology team will continue to follow this patient with you. Patient seen and case discussed with attending, Dr. Mcclellan. Bull Turcios PGY2 <Mati Mcclellan - Last Filed: 11/08/18 01:51> Objective - Vital Signs/Intake and Output Vital Signs (last 24 hours): Temp Pulse Resp BP Pulse Ox 98.2 F 112 H 20 138/85 97 11/08/18 00:01 11/08/18 00:01 11/08/18 00:01 11/08/18 00:01 11/08/18 00:01 Intake and Output: 11/07/18 11/08/18 18:59 06:59 Intake Total 640 Balance 640 - Medications Medications: Current Medications Acetaminophen (Tylenol 325mg Tab) 650 mg PO Q6H PRN PRN Reason: Pain, moderate (4-7) Last Admin: 11/07/18 09:30 Dose: 650 mg Aspirin (Aspirin Chewable) 81 mg PO DAILY [facility] Last Admin: 11/07/18 09:17 Dose: 81 mg Atorvastatin Calcium (Lipitor) 40 mg PO DIN [facility] Last Admin: 11/07/18 17:12 Dose: 40 mg Clopidogrel Bisulfate (Plavix) 75 mg PO DAILY [facility] Last Admin: 11/07/18 09:17 Dose: 75 mg Dextrose (Dextrose 50% Inj) 0 ml IV STAT PRN; Protocol PRN Reason: Hypoglycemia Protocol Famotidine (Pepcid) 20 mg PO Q12 [facility] Last Admin: 11/07/18 21:21 Dose: 20 mg Dextrose (Dextrose 5% In Water 1000 Ml) 1,000 mls @ 0 mls/hr IV .Q0M PRN; Protocol PRN Reason: Hypoglycemia Protocol Sodium Chloride (Sodium Chloride 0.9%) 1,000 mls @ 100 mls/hr IV .Q10H [facility] Last Admin: 11/07/18 20:06 Dose: 100 mls/hr Insulin Human Lispro (Humalog Med) 0 units SC ACHS [facility]; Protocol Last Admin: 11/07/18 17:12 Dose: 1 units Lorazepam (Ativan) 0.5 mg IVP Q4H PRN; Protocol PRN Reason: Agitation Last Admin: 11/07/18 19:51 Dose: 0.5 mg Mupirocin (Bactroban Ointment) 0 gm TOP BID [facility] Last Admin: 11/07/18 17:11 Dose: 1 applic Nicotine (Nicoderm Cq) 1 patch TD DAILY [facility] Last Admin: 11/07/18 09:17 Dose: 1 patch - Labs Labs: 11/07/18 07:00 11/07/18 07:00 PT 12.7 SECONDS (9.4-12.5) H 11/02/18 13:38 INR 1.12 11/02/18 13:38 APTT 39.3 Seconds (26.9-38.3) H 11/02/18 13:38 Attending/Attestation - Attestation I have personally seen and examined this patient.: Yes I have fully participated in the care of the patient.: Yes I have reviewed all pertinent clinical information, including history, physical exam and plan: Yes Notes (Text): I agree with the assessment and plan. The patient's stroke is stable and there is no significant edema. He will require extensive PT/OT.
[2018-11-05] MEDS: Insulin Lispro (humaLOG) MEDIUM Coverage SC SCH ×4 (08:25→22:02)
[2018-11-05 08:40] LABS: BASO # 0.06 K/mm3 (0.0-2.0); BASO % 0.7 % (0.0-3.0); EOS # 0.2 (0.0-0.7); EOS % 2.1 % (1.5-5.0); HEMOGLOBIN 12.9 g/dL (14.0-18.0); LYMPH # 2.1 (1.2-3.4); LYMPH % 25.7 % (22.0-35.0); MEAN CELL VOLUME 84.3 fl (80.0-105.0); MEAN CORPUSCULAR HEMOGLOBIN 27.3 pg (25.0-35.0); MEAN CORPUSCULAR HGB CONC 32.4 g/dl (31.0-37.0); MEAN PLATELET VOLUME 9.5 fl (7.0-11.0); MONO # 0.6 (0.1-0.6); MONO % 7.3 % (1.0-6.0); RBC 4.72 10^6/uL (3.5-6.1); RED CELL DISTRIBUTION WIDTH 15.1 % (11.5-14.5); WHITE BLOOD COUNT 8.1 10^3/uL (4.5-11.0)
[2018-11-05 08:51] LABS: ALB/GLOB RATIO 1.2 (1.1-1.8); ALBUMIN 3.7 g/dL (3.0-4.8); ALT/SGPT 58 U/L (7-56); AST/SGOT 29 U/L (17-59); BLOOD UREA NITROGEN 18 mg/dL (7-21); GFR NON-AFRICAN AMERICAN > 60
--- NOTE | 2018-11-05 11:22 | CT ---
Date of service: 11/05/2018 PROCEDURE: CT HEAD WITHOUT CONTRAST. HISTORY: Evaluate hemorrhage. COMPARISON: None available. TECHNIQUE: Axial computed tomography images were obtained through the head/brain without intravenous contrast. Radiation dose: Total exam DLP = 897.17 mGy-cm. This CT exam was performed using one or more of the following dose reduction techniques: Automated exposure control, adjustment of the mA and/or kV according to patient size, and/or use of iterative reconstruction technique. FINDINGS: HEMORRHAGE: No definitive acute intracranial hemorrhage BRAIN: Re demonstrated is a large chronic right MCA territory infarct in addition, there also appears to be some minor chronic periventricular white matter ischemic changes seen left cerebral hemisphere with wallerian degeneration right cerebral peduncle and upper daria. Chronic appearing small left lateral basal ganglia lacunar type infarct. VENTRICLES: Associated ex vacuo dilatation of the right lateral ventricle due to the aforementioned infarct. CALVARIUM: Unremarkable. PARANASAL SINUSES: Unremarkable as visualized. No significant inflammatory changes. MASTOID AIR CELLS: Unremarkable as visualized. No inflammatory changes. OTHER FINDINGS: None. IMPRESSION: No acute intracranial hemorrhage. Re demonstrated is a large chronic right MCA territory infarct in addition, there also appears to be some minor chronic periventricular white matter ischemic changes seen left cerebral hemisphere with wallerian degeneration right cerebral peduncle and upper daria. Chronic appearing small left lateral basal ganglia lacunar type infarct.. Associated ex vacuo dilatation of the right lateral ventricle due to the aforementioned infarct.
--- NOTE | 2018-11-05 12:45 | CP.PCM.CON ---
History of Present Illness - History of Present Illness History of Present Illness: Quintin Hearn, PGY1 ICU Consult Note Past Patient History - Infectious Disease Hx of Infectious Diseases: None - Past Social History Smoking Status: Current Some Days Smoker - CARDIAC Hx Hypertension: Yes - PULMONARY Hx Respiratory Disorders: Yes (SMOKES PPD) Hx Pneumonia: Yes (2006) - NEUROLOGICAL HX Cerebrovascular Accident: Yes (07/22, L sided weakness) - HEENT Hx HEENT Problems: No (METAL SHRAPNEL REMOVED FROM EYE) - RENAL Hx Chronic Kidney Disease: No - ENDOCRINE/METABOLIC Hx Diabetes Mellitus Type 2: Yes - HEMATOLOGICAL/ONCOLOGICAL Hx Blood Disorders: No - INTEGUMENTARY Hx Dermatological Problems: No - MUSCULOSKELETAL/RHEUMATOLOGICAL Hx Musculoskeletal Disorders: No Hx Falls: Yes (TODAY 07-31-18) Hx Fractures: Yes (RIB FX,LEFT WRIST FX-JOB RELATED) - GASTROINTESTINAL Hx Gastrointestinal Disorders: No - GENITOURINARY/GYNECOLOGICAL Hx Genitourinary Disorders: No - PSYCHIATRIC Hx Psychophysiologic Disorder: No Hx Substance Use: No - SURGICAL HISTORY Hx Surgeries: Yes (BLADDER SX, METAL SHRAPNEL REMOVED FROM EYE) - ANESTHESIA Hx Anesthesia: No Meds Allergies/Adverse Reactions: Allergies Allergy/AdvReac Type Severity Reaction Status Date / Time No Known Allergies Allergy Verified 10/12/18 00:32 - Medications Medications: Current Medications Acetaminophen (Tylenol 325mg Tab) 650 mg PO Q6H PRN PRN Reason: Pain, moderate (4-7) Last Admin: 11/04/18 01:15 Dose: 650 mg Aspirin (Aspirin Chewable) 81 mg PO DAILY [facility] Last Admin: 11/05/18 10:42 Dose: 81 mg Atorvastatin Calcium (Lipitor) 40 mg PO DIN [facility] Last Admin: 11/04/18 18:16 Dose: 40 mg Clopidogrel Bisulfate (Plavix) 75 mg PO DAILY [facility] Last Admin: 11/05/18 10:42 Dose: 75 mg Dextrose (Dextrose 50% Inj) 0 ml IV STAT PRN; Protocol PRN Reason: Hypoglycemia Protocol Famotidine (Pepcid) 20 mg PO Q12 [facility] Last Admin: 11/05/18 10:42 Dose: 20 mg Dextrose (Dextrose 5% In Water 1000 Ml) 1,000 mls @ 0 mls/hr IV .Q0M PRN; Protocol PRN Reason: Hypoglycemia Protocol Sodium Chloride (Sodium Chloride 0.9%) 1,000 mls @ 100 mls/hr IV .Q10H [facility] Last Admin: 11/05/18 00:10 Dose: 100 mls/hr Insulin Human Lispro (Humalog Med) 0 units SC ACHS [facility]; Protocol Last Admin: 11/05/18 12:19 Dose: 3 units Mupirocin (Bactroban Ointment) 0 gm TOP BID [facility] Nicotine (Nicoderm Cq) 1 patch TD DAILY [facility] Last Admin: 11/05/18 10:42 Dose: 1 patch Results - Vital Signs Recent Vital Signs: Last Vital Signs Temp 97.4 F L 11/05/18 04:00 Pulse 52 L 11/05/18 06:20 Resp 11 L 11/05/18 06:20 BP 166/84 H 11/05/18 04:00 Pulse Ox 98 11/05/18 06:20 - Labs Result Diagrams: 11/05/18 08:20 11/05/18 08:20 Labs: Laboratory Results - last 24 hr 11/04/18 11/04/18 11/05/18 16:18 22:49 07:56 WBC RBC Hgb Hct MCV MCH MCHC RDW Plt Count MPV Neut % (Auto) Lymph % (Auto) [place] % (Auto) Eos % (Auto) Baso % (Auto) Lymph # (Auto) [place] # (Auto) Eos # (Auto) Baso # (Auto) Absolute Neuts (auto) Sodium Potassium Chloride Carbon Dioxide Anion Gap BUN Creatinine Est GFR ( Amer) Est GFR (Non-Af Amer) POC Glucose (mg/dL) 169 H 197 H 206 H Random Glucose Calcium Total Bilirubin AST ALT Alkaline Phosphatase Total Protein Albumin Globulin Albumin/Globulin Ratio 11/05/18 11/05/18 08:20 08:20 WBC 8.1 D RBC 4.72 Hgb 12.9 L Hct 39.8 L MCV 84.3 MCH 27.3 MCHC 32.4 RDW 15.1 H Plt Count 296 MPV 9.5 Neut % (Auto) 64.2 Lymph % (Auto) 25.7 Gladwin % (Auto) 7.3 H Eos % (Auto) 2.1 Baso % (Auto) 0.7 Lymph # (Auto) 2.1 [place] # (Auto) 0.6 Eos # (Auto) 0.2 Baso # (Auto) 0.06 Absolute Neuts (auto) 5.18 Sodium 140 Potassium 4.1 Chloride 107 Carbon Dioxide 26 Anion Gap 11 BUN 18 Creatinine 0.7 L Est GFR ( Amer) > 60 Est GFR (Non-Af Amer) > 60 POC Glucose (mg/dL) Random Glucose 204 H Calcium 9.0 Total Bilirubin 0.3 AST 29 ALT 58 H Alkaline Phosphatase 69 Total Protein 6.8 Albumin 3.7 Globulin 3.1 Albumin/Globulin Ratio 1.2
--- NOTE | 2018-11-05 12:53 | CP.CCUPN ---
<Quintin Hearn - Last Filed: 11/05/18 13:32> CCU Subjective - Physician Review Subjective (Free Text): 11/05/18 12:49 Quintin Hearn PGY1 Critical Care Progress Note Patient seen and examined at bedside this morning. No acute events reported overnight. Patient is resting comfortably, sitting up in bed, moving extremities spontaneously past midline and denies headaches, numbness, tingling, swelling, visual changes and tinnitus. Repeat CT head today shows no interval change. Transfer to tele. CCU Objective - Vital Signs / Intake & Output Intake and Output (Last 8hrs): Intake & Output 11/04/18 11/05/18 11/05/18 22:59 06:59 14:59 Intake Total 1280 1450 Output Total 650 200 Balance 630 1250 Weight 162 lb 14.746 oz Intake: IV 800 1200 Right Antecubital 800 1200 Oral 480 120 Tube Feeding 0 TPN/PPN 0 Blood Product 0 Lipid 0 Albumin 0 Other 130 Output: Urine 650 200 Urine, Voided 650 200 Stool 0 Urine/Stool Mix 0 Emesis 0 Oral Regurgitation 0 Other 0 Other: # Voids Urine, Voided 1 # Bowel Movements 0 0 - Physical Exam Head: Positive for: Atraumatic, Normocephalic Extroacular Muscles: Positive for: EOMI Conjunctiva: Positive for: Injected Mouth: Positive for: Moist Mucous Membranes Respiratory/Chest: Positive for: Clear to Auscultation, Good Air Exchange. Negative for: Respiratory Distress Cardiovascular: Positive for: Regular Rate and Rhythm, Normal S1, S2 Abdomen: Positive for: Normal Bowel Sounds. Negative for: Tenderness, Distention Upper Extremity: Positive for: Edema (left > Right), NORMAL PULSES, Other (Left arm with minimal contracture and muscle wasting) Neurological: Positive for: Other (Hemineglect of upper and lower left sided extremities, left facial palsy appreciated, no slurred speech appreciated) Skin: Positive for: Dry Psychiatric: Positive for: Alert, Oriented x 3 - Medications Active Medications: Active Medications Generic Name Dose Route Start Last Admin Trade Name Freq PRN Reason Stop Dose Admin Acetaminophen 650 mg 11/03/18 00:05 11/04/18 01:15 Tylenol 325mg Tab PO 650 mg Q6H PRN Administration Pain, moderate (4-7) Aspirin 81 mg 11/03/18 10:00 11/05/18 10:42 Aspirin Chewable PO 81 mg DAILY [facility] Administration Atorvastatin Calcium 40 mg 11/02/18 17:00 11/04/18 18:16 Lipitor PO 40 mg DIN [facility] Administration Clopidogrel Bisulfate 75 mg 11/03/18 10:00 11/05/18 10:42 Plavix PO 75 mg DAILY [facility] Administration Dextrose 0 ml 11/02/18 16:19 Dextrose 50% Inj IV STAT PRN Hypoglycemia Protocol Protocol Famotidine 20 mg 11/02/18 22:00 11/05/18 10:42 Pepcid PO 20 mg Q12 [facility] Administration Dextrose 1,000 mls @ 0 mls/hr 11/02/18 16:19 Dextrose 5% In Water 1000 Ml IV .Q0M PRN Hypoglycemia Protocol Protocol Per Protocol Sodium Chloride 1,000 mls @ 100 mls/hr 11/04/18 12:15 11/05/18 00:10 Sodium Chloride 0.9% IV 100 mls/hr .Q10H [facility] Administration Insulin Human Lispro 0 units 11/02/18 16:30 11/05/18 12:19 Humalog Med SC 3 units ACHS [facility] Administration Protocol Mupirocin 0 gm 11/05/18 18:00 Bactroban Ointment TOP BID [facility] Nicotine 1 patch 11/03/18 12:45 11/05/18 10:42 Nicoderm Cq TD 1 patch DAILY [facility] Administration - Patient Studies Lab Studies: Microbiology Studies 11/03/18 16:45 MRSA Culture (Admit) - Final Nose MRSA DETECTED Lab Studies 11/05/18 11/05/18 11/05/18 Range/Units 08:20 08:20 07:56 WBC 8.1 D (4.5-11.0) 10^3/uL RBC 4.72 (3.5-6.1) 10^6/uL Hgb 12.9 L (14.0-18.0) g/dL Hct 39.8 L (42.0-52.0) % MCV 84.3 (80.0-105.0) fl MCH 27.3 (25.0-35.0) pg MCHC 32.4 (31.0-37.0) g/dl RDW 15.1 H (11.5-14.5) % Plt Count 296 (120.0-450.0) 10^3/uL MPV 9.5 (7.0-11.0) fl Neut % (Auto) 64.2 (50.0-68.0) % Lymph % (Auto) 25.7 (22.0-35.0) % Mckenzie % (Auto) 7.3 H (1.0-6.0) % Eos % (Auto) 2.1 (1.5-5.0) % Baso % (Auto) 0.7 (0.0-3.0) % Lymph # (Auto) 2.1 (1.2-3.4) Mckenzie # (Auto) 0.6 (0.1-0.6) Eos # (Auto) 0.2 (0.0-0.7) Baso # (Auto) 0.06 (0.0-2.0) K/mm3 Absolute Neuts (auto) 5.18 (1.4-6.5) Sodium 140 (132-148) mmol/L Potassium 4.1 (3.6-5.0) mmol/L Chloride 107 (98-107) mmol/L Carbon Dioxide 26 (21-33) mmol/L Anion Gap 11 (10-20) BUN 18 (7-21) mg/dL Creatinine 0.7 L (0.8-1.5) mg/dl Est GFR ( Amer) > 60 Est GFR (Non-Af Amer) > 60 POC Glucose (mg/dL) 206 H (65-110) mg/dL Random Glucose 204 H (70-110) mg/dL Calcium 9.0 (8.4-10.5) mg/dL Total Bilirubin 0.3 (0.2-1.3) mg/dL AST 29 (17-59) U/L ALT 58 H (7-56) U/L Alkaline Phosphatase 69 (38-126) U/L Total Protein 6.8 (5.8-8.3) g/dL Albumin 3.7 (3.0-4.8) g/dL Globulin 3.1 gm/dL Albumin/Globulin Ratio 1.2 (1.1-1.8) 11/04/18 11/04/18 Range/Units 22:49 16:18 WBC (4.5-11.0) 10^3/uL RBC (3.5-6.1) 10^6/uL Hgb (14.0-18.0) g/dL Hct (42.0-52.0) % MCV (80.0-105.0) fl MCH (25.0-35.0) pg MCHC (31.0-37.0) g/dl RDW (11.5-14.5) % Plt Count (120.0-450.0) 10^3/uL MPV (7.0-11.0) fl Neut % (Auto) (50.0-68.0) % Lymph % (Auto) (22.0-35.0) % Mckenzie % (Auto) (1.0-6.0) % Eos % (Auto) (1.5-5.0) % Baso % (Auto) (0.0-3.0) % Lymph # (Auto) (1.2-3.4) Mckenzie # (Auto) (0.1-0.6) Eos # (Auto) (0.0-0.7) Baso # (Auto) (0.0-2.0) K/mm3 Absolute Neuts (auto) (1.4-6.5) Sodium (132-148) mmol/L Potassium (3.6-5.0) mmol/L Chloride (98-107) mmol/L Carbon Dioxide (21-33) mmol/L Anion Gap (10-20) BUN (7-21) mg/dL Creatinine (0.8-1.5) mg/dl Est GFR ( Amer) Est GFR (Non-Af Amer) POC Glucose (mg/dL) 197 H 169 H (65-110) mg/dL Random Glucose (70-110) mg/dL Calcium (8.4-10.5) mg/dL Total Bilirubin (0.2-1.3) mg/dL AST (17-59) U/L ALT (7-56) U/L Alkaline Phosphatase (38-126) U/L Total Protein (5.8-8.3) g/dL Albumin (3.0-4.8) g/dL Globulin gm/dL Albumin/Globulin Ratio (1.1-1.8) Laboratory Results - last 24 hr 11/04/18 11/04/18 11/05/18 16:18 22:49 07:56 WBC RBC Hgb Hct MCV MCH MCHC RDW Plt Count MPV Neut % (Auto) Lymph % (Auto) Mckenzie % (Auto) Eos % (Auto) Baso % (Auto) Lymph # (Auto) Mckenzie # (Auto) Eos # (Auto) Baso # (Auto) Absolute Neuts (auto) Sodium Potassium Chloride Carbon Dioxide Anion Gap BUN Creatinine Est GFR ( Amer) Est GFR (Non-Af Amer) POC Glucose (mg/dL) 169 H 197 H 206 H Random Glucose Calcium Total Bilirubin AST ALT Alkaline Phosphatase Total Protein Albumin Globulin Albumin/Globulin Ratio 11/05/18 11/05/18 08:20 08:20 WBC 8.1 D RBC 4.72 Hgb 12.9 L Hct 39.8 L MCV 84.3 MCH 27.3 MCHC 32.4 RDW 15.1 H Plt Count 296 MPV 9.5 Neut % (Auto) 64.2 Lymph % (Auto) 25.7 Mckenzie % (Auto) 7.3 H Eos % (Auto) 2.1 Baso % (Auto) 0.7 Lymph # (Auto) 2.1 Mckenzie # (Auto) 0.6 Eos # (Auto) 0.2 Baso # (Auto) 0.06 Absolute Neuts (auto) 5.18 Sodium 140 Potassium 4.1 Chloride 107 Carbon Dioxide 26 Anion Gap 11 BUN 18 Creatinine 0.7 L Est GFR ( Amer) > 60 Est GFR (Non-Af Amer) > 60 POC Glucose (mg/dL) Random Glucose 204 H Calcium 9.0 Total Bilirubin 0.3 AST 29 ALT 58 H Alkaline Phosphatase 69 Total Protein 6.8 Albumin 3.7 Globulin 3.1 Albumin/Globulin Ratio 1.2 Radiology Impressions: Radiology Impressions Head CT 11/04/18 10:57 IMPRESSION: Stable chronic infarct right MCA distribution and related degenerative change. Diffuse cerebral atrophy chronic microangiopathy are reiterated. No acute intra hemorrhage or definitive acute subacute sign of brain infarction appreciable. Head CT 11/05/18 07:00 IMPRESSION: No acute intracranial hemorrhage. Re demonstrated is a large chronic right MCA territory infarct in addition, there also appears to be some minor chronic periventricular white matter ischemic changes seen left cerebral hemisphere with wallerian degeneration right cerebral peduncle and upper daria. Chronic appearing small left lateral basal ganglia lacunar type infarct.. Associated ex vacuo dilatation of the right lateral ventricle due to the aforementioned infarct. Fingerstick Blood Sugar Results: 239 Critical Care Progress Note - Nutrition Nutrition: Nutrition Category Date Time Status Consistent Carbohydrate [DIET] Diets 11/03/18 Lunch Ordered Assessment/Plan - Assessment and Plan (Free Text) Assessment: 53 year old male with past medical history of previous CVA, HTN, major depression disorder who was admitted to ICU with concern for malignant brain edema after experiencing Right MCA infarct as by evidence of recent Brain MRI. Patient monitored in ICU for possible malignant brain tarah, patient noted to be stable at this time with no acute changes in neuro evaluation. Transferred to [facility]. Plan: Neuro: Acute hemorrhagic event involving right temporal and frontal parietal ischemic infarct -MRI brain, Head CT, Head and Neck CTA imaging reviewed and appreciated -CT head today reviewed, did not show any interval change -Head of bed 30 degrees for optimal cerebral venous outflow -Maintain Sodium 140-150 -Neuro Consulted and following, f/u recs -EEG, follow up results -Continue neurocheck/evaluation -Neurointerventionist consulted, Dr. Cruz, follow up recs -Neurosurgery consulted with Dr. Martinez, no intervention at this time -Neurologist on consult, Dr. 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 Zaragoza's or Dr. Laguerre's office Maintain MAP >65mmHg Psych: Major Depression with psychotic symptoms, Psychosis secondary CVA -Underlying psychosis noted prior to recent intracranial hemorrhage -No acute interventions from psych -Continue to hold elavil, Depakote, prozac and seroquel Endocrine: DM2 -ISS, ACHS GI: -HHD -GI prophylaxis with pepcid Renal: -Maintain adequate sodium control of 140-150 -Monitor and replete lytes as necessary -Maintain euvolemia ID: -Afebrile, No leukocytosis -Urine, Blood clx negative Patient seen and case discussed with attending, Dr. Barkley <Minor Barkley - Last Filed: 11/05/18 14:36> CCU Objective - Vital Signs / Intake & Output Vital Signs (Last 4 hours): Vital Signs Temp Pulse Resp 11/05/18 13:10 91 H 15 11/05/18 13:00 85 20 11/05/18 12:50 96 H 33 H 11/05/18 12:40 89 23 11/05/18 12:30 92 H 23 11/05/18 12:20 88 24 11/05/18 12:10 91 H 26 H 11/05/18 12:02 77 21 11/05/18 12:00 98.3 F 11/05/18 11:55 22 11/05/18 11:54 28 H 11/05/18 11:53 26 H 11/05/18 11:50 130 H 46 H 11/05/18 11:48 12 11/05/18 11:40 108 H 18 11/05/18 11:30 28 H 11/05/18 11:29 41 H 11/05/18 11:28 20 11/05/18 11:27 34 H 11/05/18 11:26 38 H 11/05/18 11:25 31 H 11/05/18 11:24 26 H 11/05/18 11:23 57 H 11/05/18 11:22 30 H 11/05/18 11:21 28 H 11/05/18 11:20 27 H 11/05/18 11:19 25 H 11/05/18 11:18 18 11/05/18 11:16 18 11/05/18 11:15 42 H 11/05/18 11:13 11 L 11/05/18 11:12 23 11/05/18 11:11 22 11/05/18 11:10 29 H 11/05/18 11:09 31 H 11/05/18 11:08 18 11/05/18 11:07 22 11/05/18 11:06 14 11/05/18 11:05 21 11/05/18 11:04 15 11/05/18 11:03 16 11/05/18 11:00 25 H 11/05/18 10:59 25 H 11/05/18 10:58 21 11/05/18 10:57 24 11/05/18 10:56 16 11/05/18 10:55 20 11/05/18 10:54 18 11/05/18 10:52 22 11/05/18 10:51 21 Intake and Output (Last 8hrs): Intake & Output 11/04/18 11/05/18 11/05/18 22:59 06:59 14:59 Intake Total 1280 1450 Output Total 650 200 Balance 630 1250 Weight 162 lb 14.746 oz Intake: IV 800 1200 Right Antecubital 800 1200 Oral 480 120 Tube Feeding 0 TPN/PPN 0 Blood Product 0 Lipid 0 Albumin 0 Other 130 Output: Urine 650 200 Urine, Voided 650 200 Stool 0 Urine/Stool Mix 0 Emesis 0 Oral Regurgitation 0 Other 0 Other: # Voids Urine, Voided 1 # Bowel Movements 0 0 - Medications Active Medications: Active Medications Generic Name Dose Route Start Last Admin Trade Name Freq PRN Reason Stop Dose Admin Acetaminophen 650 mg 11/03/18 00:05 11/04/18 01:15 Tylenol 325mg Tab PO 650 mg Q6H PRN Administration Pain, moderate (4-7) Aspirin 81 mg 11/03/18 10:00 11/05/18 10:42 Aspirin Chewable PO 81 mg DAILY [facility] Administration Atorvastatin Calcium 40 mg 11/02/18 17:00 11/04/18 18:16 Lipitor PO 40 mg DIN [facility] Administration Clopidogrel Bisulfate 75 mg 11/03/18 10:00 11/05/18 10:42 Plavix PO 75 mg DAILY [facility] Administration Dextrose 0 ml 11/02/18 16:19 Dextrose 50% Inj IV STAT PRN Hypoglycemia Protocol Protocol Famotidine 20 mg 11/02/18 22:00 11/05/18 10:42 Pepcid PO 20 mg Q12 [facility] Administration Dextrose 1,000 mls @ 0 mls/hr 11/02/18 16:19 Dextrose 5% In Water 1000 Ml IV .Q0M PRN Hypoglycemia Protocol Protocol Per Protocol Sodium Chloride 1,000 mls @ 100 mls/hr 11/04/18 12:15 11/05/18 00:10 Sodium Chloride 0.9% IV 100 mls/hr .Q10H [facility] Administration Insulin Human Lispro 0 units 11/02/18 16:30 11/05/18 12:19 Humalog Med SC 3 units ACHS [facility] Administration Protocol Mupirocin 0 gm 11/05/18 18:00 Bactroban Ointment TOP BID [facility] Nicotine 1 patch 11/03/18 12:45 11/05/18 10:42 Nicoderm Cq TD 1 patch DAILY [facility] Administration - Patient Studies Lab Studies: Microbiology Studies 11/03/18 16:45 MRSA Culture (Admit) - Final Nose MRSA DETECTED Lab Studies 11/05/18 11/05/18 11/05/18 Range/Units 08:20 08:20 07:56 WBC 8.1 D (4.5-11.0) 10^3/uL RBC 4.72 (3.5-6.1) 10^6/uL Hgb 12.9 L (14.0-18.0) g/dL Hct 39.8 L (42.0-52.0) % MCV 84.3 (80.0-105.0) fl MCH 27.3 (25.0-35.0) pg MCHC 32.4 (31.0-37.0) g/dl RDW 15.1 H (11.5-14.5) % Plt Count 296 (120.0-450.0) 10^3/uL MPV 9.5 (7.0-11.0) fl Neut % (Auto) 64.2 (50.0-68.0) % Lymph % (Auto) 25.7 (22.0-35.0) % Mckenzie % (Auto) 7.3 H (1.0-6.0) % Eos % (Auto) 2.1 (1.5-5.0) % Baso % (Auto) 0.7 (0.0-3.0) % Lymph # (Auto) 2.1 (1.2-3.4) Mckenzie # (Auto) 0.6 (0.1-0.6) Eos # (Auto) 0.2 (0.0-0.7) Baso # (Auto) 0.06 (0.0-2.0) K/mm3 Absolute Neuts (auto) 5.18 (1.4-6.5) Sodium 140 (132-148) mmol/L Potassium 4.1 (3.6-5.0) mmol/L Chloride 107 (98-107) mmol/L Carbon Dioxide 26 (21-33) mmol/L Anion Gap 11 (10-20) BUN 18 (7-21) mg/dL Creatinine 0.7 L (0.8-1.5) mg/dl Est GFR ( Amer) > 60 Est GFR (Non-Af Amer) > 60 POC Glucose (mg/dL) 206 H (65-110) mg/dL Random Glucose 204 H (70-110) mg/dL Calcium 9.0 (8.4-10.5) mg/dL Total Bilirubin 0.3 (0.2-1.3) mg/dL AST 29 (17-59) U/L ALT 58 H (7-56) U/L Alkaline Phosphatase 69 (38-126) U/L Total Protein 6.8 (5.8-8.3) g/dL Albumin 3.7 (3.0-4.8) g/dL Globulin 3.1 gm/dL Albumin/Globulin Ratio 1.2 (1.1-1.8) 11/04/18 11/04/18 Range/Units 22:49 16:18 WBC (4.5-11.0) 10^3/uL RBC (3.5-6.1) 10^6/uL Hgb (14.0-18.0) g/dL Hct (42.0-52.0) % MCV (80.0-105.0) fl MCH (25.0-35.0) pg MCHC (31.0-37.0) g/dl RDW (11.5-14.5) % Plt Count (120.0-450.0) 10^3/uL MPV (7.0-11.0) fl Neut % (Auto) (50.0-68.0) % Lymph % (Auto) (22.0-35.0) % Mckenzie % (Auto) (1.0-6.0) % Eos % (Auto) (1.5-5.0) % Baso % (Auto) (0.0-3.0) % Lymph # (Auto) (1.2-3.4) Mckenzie # (Auto) (0.1-0.6) Eos # (Auto) (0.0-0.7) Baso # (Auto) (0.0-2.0) K/mm3 Absolute Neuts (auto) (1.4-6.5) Sodium (132-148) mmol/L Potassium (3.6-5.0) mmol/L Chloride (98-107) mmol/L Carbon Dioxide (21-33) mmol/L Anion Gap (10-20) BUN (7-21) mg/dL Creatinine (0.8-1.5) mg/dl Est GFR ( Amer) Est GFR (Non-Af Amer) POC Glucose (mg/dL) 197 H 169 H (65-110) mg/dL Random Glucose (70-110) mg/dL Calcium (8.4-10.5) mg/dL Total Bilirubin (0.2-1.3) mg/dL AST (17-59) U/L ALT (7-56) U/L Alkaline Phosphatase (38-126) U/L Total Protein (5.8-8.3) g/dL Albumin (3.0-4.8) g/dL Globulin gm/dL Albumin/Globulin Ratio (1.1-1.8) Laboratory Results - last 24 hr 11/04/18 11/04/18 11/05/18 16:18 22:49 07:56 WBC RBC Hgb Hct MCV MCH MCHC RDW Plt Count MPV Neut % (Auto) Lymph % (Auto) Mckenzie % (Auto) Eos % (Auto) Baso % (Auto) Lymph # (Auto) Mckenzie # (Auto) Eos # (Auto) Baso # (Auto) Absolute Neuts (auto) Sodium Potassium Chloride Carbon Dioxide Anion Gap BUN Creatinine Est GFR ( Amer) Est GFR (Non-Af Amer) POC Glucose (mg/dL) 169 H 197 H 206 H Random Glucose Calcium Total Bilirubin AST ALT Alkaline Phosphatase Total Protein Albumin Globulin Albumin/Globulin Ratio 11/05/18 11/05/18 08:20 08:20 WBC 8.1 D RBC 4.72 Hgb 12.9 L Hct 39.8 L MCV 84.3 MCH 27.3 MCHC 32.4 RDW 15.1 H Plt Count 296 MPV 9.5 Neut % (Auto) 64.2 Lymph % (Auto) 25.7 Mckenzie % (Auto) 7.3 H Eos % (Auto) 2.1 Baso % (Auto) 0.7 Lymph # (Auto) 2.1 Mckenzie # (Auto) 0.6 Eos # (Auto) 0.2 Baso # (Auto) 0.06 Absolute Neuts (auto) 5.18 Sodium 140 Potassium 4.1 Chloride 107 Carbon Dioxide 26 Anion Gap 11 BUN 18 Creatinine 0.7 L Est GFR ( Amer) > 60 Est GFR (Non-Af Amer) > 60 POC Glucose (mg/dL) Random Glucose 204 H Calcium 9.0 Total Bilirubin 0.3 AST 29 ALT 58 H Alkaline Phosphatase 69 Total Protein 6.8 Albumin 3.7 Globulin 3.1 Albumin/Globulin Ratio 1.2 Radiology Impressions: Radiology Impressions Head CT 11/04/18 10:57 IMPRESSION: Stable chronic infarct right MCA distribution and related degenerative change. Diffuse cerebral atrophy chronic microangiopathy are reiterated. No acute intra hemorrhage or definitive acute subacute sign of brain infarction appreciable. Head CT 11/05/18 07:00 IMPRESSION: No acute intracranial hemorrhage. Re demonstrated is a large chronic right MCA territory infarct in addition, there also appears to be some minor chronic periventricular white matter ischemic changes seen left cerebral hemisphere with wallerian degeneration right cerebral peduncle and upper daria. Chronic appearing small left lateral basal ganglia lacunar type infarct.. Associated ex vacuo dilatation of the right lateral ventricle due to the aforementioned infarct. Critical Care Progress Note - Nutrition Nutrition: Nutrition Category Date Time Status Consistent Carbohydrate [DIET] Diets 11/03/18 Lunch Ordered Assessment/Plan - Assessment and Plan (Free Text) Assessment: Patient seen and examined on rounds, with resident, agree with note with following additions/exceptions: Patient is 53yo male with PMHx CVA, HTN, major depression disorder who was admitted to ICU with concerns for malignant brain edema after experiencing Right MCA infarct as by evidence of recent Brain MRI. Patient is currently afebrile, BP stable, comfortable in NAD, AAOX3, at baseline neurological exam Neurology following Patient had repeat CTH today, results noted OK transfer to tele as per neurology DM Acute CVA Depression ICA stenosis Recommend: - supp o2 as needed, duonebs PRN - NO ID issues - BP control - FS control - ASA, Plavix Statin - Follow up neuro - ECHO - GI ppx - DVT ppx, HSQ - Transfer to tele, stable
--- NOTE | 2018-11-05 16:23 | CP.PCM.PN ---
<Ha Alexandra - Last Filed: 11/05/18 19:34> Subjective - Date & Time of Evaluation Date of Evaluation: 11/05/18 Time of Evaluation: 09:30 - Subjective Subjective: Ha Alexandra, PGY-1 Medicine Progress Note for Dr. Conway: Pt was seen and examined this AM at bedside. Pt was somnolent in the AM but he denied any visual hallucinations. Pt was started on precedex for agitation overnight again. He is oriented today AOx3. He states that he is having no further headaches and there are no further neurologic deficits as pt can move R UE and LE spontaneously. He has no other acute complaints at this time. At this time pt has no SI/HI. Objective - Vital Signs/Intake and Output Vital Signs (last 24 hours): Temp Pulse Resp BP Pulse Ox 98.3 F 91 H 15 166/84 H 98 11/05/18 12:00 11/05/18 13:10 11/05/18 13:10 11/05/18 04:00 11/05/18 06:20 Intake and Output: 11/05/18 11/05/18 06:59 18:59 Intake Total 1450 Output Total 200 Balance 1250 - Medications Medications: Current Medications Acetaminophen (Tylenol 325mg Tab) 650 mg PO Q6H PRN PRN Reason: Pain, moderate (4-7) Last Admin: 11/04/18 01:15 Dose: 650 mg Aspirin (Aspirin Chewable) 81 mg PO DAILY [facility] Last Admin: 11/05/18 10:42 Dose: 81 mg Atorvastatin Calcium (Lipitor) 40 mg PO DIN [facility] Last Admin: 11/04/18 18:16 Dose: 40 mg Clopidogrel Bisulfate (Plavix) 75 mg PO DAILY [facility] Last Admin: 11/05/18 10:42 Dose: 75 mg Dextrose (Dextrose 50% Inj) 0 ml IV STAT PRN; Protocol PRN Reason: Hypoglycemia Protocol Famotidine (Pepcid) 20 mg PO Q12 [facility] Last Admin: 11/05/18 10:42 Dose: 20 mg Dextrose (Dextrose 5% In Water 1000 Ml) 1,000 mls @ 0 mls/hr IV .Q0M PRN; Protocol PRN Reason: Hypoglycemia Protocol Sodium Chloride (Sodium Chloride 0.9%) 1,000 mls @ 100 mls/hr IV .Q10H [facility] Last Admin: 11/05/18 00:10 Dose: 100 mls/hr Insulin Human Lispro (Humalog Med) 0 units SC ACHS [facility]; Protocol Last Admin: 11/05/18 12:19 Dose: 3 units Mupirocin (Bactroban Ointment) 0 gm TOP BID [facility] Nicotine (Nicoderm Cq) 1 patch TD DAILY [facility] Last Admin: 11/05/18 10:42 Dose: 1 patch - Labs Labs: 11/05/18 08:20 11/05/18 08:20 PT 12.7 SECONDS (9.4-12.5) H 11/02/18 13:38 INR 1.12 11/02/18 13:38 APTT 39.3 Seconds (26.9-38.3) H 11/02/18 13:38 - Constitutional Appears: Non-toxic, No Acute Distress - Head Exam Head Exam: ATRAUMATIC, NORMOCEPHALIC Additional comments: Pt has L sided facial droop and is unable to puff out cheeks on L side. - Eye Exam Eye Exam: EOMI, Normal appearance, PERRL - Respiratory Exam Respiratory Exam: Clear to Ausculation Bilateral, NORMAL BREATHING PATTERN. absent: Accessory Muscle Use, Rales, Rhonchi, Wheezes, Respiratory Distress, Stridor - Cardiovascular Exam Cardiovascular Exam: RRR, +S1, +S2. absent: Gallop, Rubs - GI/Abdominal Exam GI & Abdominal Exam: Soft, Normal Bowel Sounds. absent: Firm, Guarding, Rigid, Tenderness - Extremities Exam Additional comments: Pt is unable to perform flexion or extention of L LE at any joint level. - Back Exam Back Exam: NORMAL INSPECTION. absent: CVA tenderness (L), CVA tenderness (R) - Neurological Exam Neurological Exam: Alert, Awake, Oriented x3 Neuro motor strength exam: Left Upper Extremity: 0, Right Upper Extremity: 5, Left Lower Extremity: 0, Right Lower Extremity: 5 Additional comments: Cranial nerves: EOM's Intact: Normal, Tongue Deviation: Normal Sensory exam: Lower Extremity 2 Point Discrimination: Abnormal Left, Lower Extremity Light Touch: Abnormal Left, Lower Extremity Pin Prick: Abnormal Left, Lower Extremity Temperature: Abnormal Left, Upper Extremity 2 Point Discri mination: Abnormal Left, Upper Extremity Light Touch: Abnormal Left, Upper Extremity Pin Prick: Abnormal Left, Upper Extremity Temperature: Abnormal Left Coma Scale Eye Opening: SPONTANEOUS Coma Scale Motor Response: OBEYS COMMANDS Coma Scale Verbal: Oriented Coma Scale Total: 15 - Psychiatric Exam Psychiatric exam: Normal Affect, Normal Mood - Skin Skin Exam: Dry, Normal Color, Warm Assessment and Plan - Assessment and Plan (Free Text) Assessment: Pt is a 53 yo M with pmhx of HTN, DM, HLD and ischemic CVA (07/22) who presented from psych floor for hemorrhagic stroke. MRI 11/01/18: Subacute to chronic involving R temporal and frontal parietal ischemic infarct with hemorrhagic component. Associated residual vasogenic edema. Hemosiderin ring present. Head and neck CT: 1. Critical stenosis origin R ICA. Greater than 75% stenosis origin L ICA. 2. Mod-severe multifocal stenosis R ICA cavernous and supreclinoid segment. No sig stenosis L cavernous and intracranial ICA. 3. Slight increase in stenosis of R M1 MCA. CT head 11/03: No change in large MCA distribution infarct, No evidence of midline shift. Pending read on repeat CT head. Plan: 1) Hemorrhagic stroke: - Pt transferred to ICU - Will cont to monitor in ICU for 72 hours to monitor for worsening of edema or midline shift. - MRI 11/01/18: Subacute to chronic involving R temporal and frontal parietal ischemic infarct with hemorrhagic component. Associated residual vasogenic edema. Hemosiderin ring present. - Head and neck CT:11/02/18: 1. Critical stenosis origin R ICA. Greater than 75% stenosis origin L ICA. 2. Mod-severe multifocal stenosis R ICA cavernous and supreclinoid segment. No sig stenosis L cavernous and intracranial ICA. 3. Slight increase in stenosis of R M1 MCA. please refer to full report for additional details - CT head 11/03: No change in large MCA distribution infarct, No evidence of midline shift. - CT Head 11/05: No acute intracranial hemorrhage. Re-demonstration of large chronic R MCA territory infarct - Please refer to full report for details - Lipid Panel - Cholesterol - 164, LDL - 71, HDL - 35, T - Asa, plavix - Cont per neuro - Cont statin - Aspiration precautions - High fall risk - OOB w/ assistance - Head of bed elevation 30 - Neuro Q4 - VS Q4 - ICU Consult - Dr. Patel - Neuro consult - Dr. Mcclellan - Repeat Head CT w/o contrast to monitor for 72 hrs - Neurosurg Consult - Dr. Martinez - No neurosurgical intervention at this time - Neurointerventionalist consult - Dr. Cruz - Recs appreciated - Psych Consult - Dr. Foster - No psych intervention at this time - PT eval - CHERRY 2) Hx of DM: - ISS - Medium - Q6 finger sticks 3) Hx of HTN: - Holding BP meds at this time - Please keep SBP between 120-160 - Will continue to closely monitor - Q4 vital signs 4) Hx of HLD: - Cont lipitor 40qd 5) Hx of tobacco abuse: - Nicotine Patch PPx: GI: Pepcid DVT: SCDs Case seen and discussed with Dr. Zoraida Alexandra, PGY-1 <Navi Conway - Last Filed: 11/06/18 07:24> Objective - Vital Signs/Intake and Output Vital Signs (last 24 hours): Temp Pulse Resp BP Pulse Ox 98.9 F 102 H 26 H 160/74 H 98 11/05/18 20:00 11/06/18 06:00 11/05/18 22:30 11/05/18 16:00 11/05/18 06:20 Intake and Output: 11/06/18 11/06/18 06:59 18:59 Intake Total 0 Output Total 300 Balance -300 - Medications Medications: Current Medications Acetaminophen (Tylenol 325mg Tab) 650 mg PO Q6H PRN PRN Reason: Pain, moderate (4-7) Last Admin: 11/04/18 01:15 Dose: 650 mg Aspirin (Aspirin Chewable) 81 mg PO DAILY [facility] Last Admin: 11/05/18 10:42 Dose: 81 mg Atorvastatin Calcium (Lipitor) 40 mg PO DIN [facility] Last Admin: 11/05/18 19:49 Dose: Not Given Clopidogrel Bisulfate (Plavix) 75 mg PO DAILY [facility] Last Admin: 11/05/18 10:42 Dose: 75 mg Dextrose (Dextrose 50% Inj) 0 ml IV STAT PRN; Protocol PRN Reason: Hypoglycemia Protocol Famotidine (Pepcid) 20 mg PO Q12 [facility] Last Admin: 11/05/18 21:51 Dose: 20 mg Dextrose (Dextrose 5% In Water 1000 Ml) 1,000 mls @ 0 mls/hr IV .Q0M PRN; Protocol PRN Reason: Hypoglycemia Protocol Sodium Chloride (Sodium Chloride 0.9%) 1,000 mls @ 100 mls/hr IV .Q10H [facility] Last Admin: 11/05/18 00:10 Dose: 100 mls/hr Insulin Human Lispro (Humalog Med) 0 units SC ACHS [facility]; Protocol Last Admin: 11/05/18 22:02 Dose: Not Given Mupirocin (Bactroban Ointment) 0 gm TOP BID [facility] Last Admin: 11/05/18 21:51 Dose: 1 applic Nicotine (Nicoderm Cq) 1 patch TD DAILY [facility] Last Admin: 11/05/18 10:42 Dose: 1 patch - Labs Labs: 11/05/18 08:20 11/05/18 08:20 PT 12.7 SECONDS (9.4-12.5) H 11/02/18 13:38 INR 1.12 11/02/18 13:38 APTT 39.3 Seconds (26.9-38.3) H 11/02/18 13:38 Attending/Attestation - Attestation I have personally seen and examined this patient.: Yes I have fully participated in the care of the patient.: Yes I have reviewed all pertinent clinical information, including history, physical exam and plan: Yes Notes (Text): 11/05/18 53 year old male with past medical history of hypertension, diabetes, and CVA (07/2018) who was initially admitted under psychiatric unit for depression. He was transferred to medical floor for +MRI findings showing subacute to chronic ischemic infarction involving the right frontal, temporal and parietal lobes with accompanying hemorrhagic component. CTA head/neck showed critical stenosis of right ICA, >75% stenosis of left ICA and moderate to severe multifocal stenosis of the cavernous and supraclinoid seg ments of right ICA. He was transferred to ICU for close ICU monitoring. Neurology is following. S erial CT heads have been stable. Patient is on aspirin, plavix and statin. Neurosurgery and vasculary evaluations were also appreciated; no acute intervention planned. Recommended outpatient follow up. Psychiatry is following. PT follow up was requested. Possible transfer out of ICU today. Navi Conway MD Hospitalist.
--- NOTE | 2018-11-05 18:29 | PN ---
DATE: 11/05/2018 SUBJECTIVE: In short, the patient is a 53-year-old male. The patient was admitted on to the psychiatric inpatient unit for depression and possible suicidal ideation. The patient was transferred to TCU after the patient started to have visual hallucinations, crocodiles and zombies. This patient was found to have new stroke. The patient was seen by Dr. Foster for past 2 days. This technical writer is taking over. The patient presented to be alert and oriented. The patient remembered this technical writer. The patient reported now he feels much better. The patient denied any feeling of hopelessness or helplessness. The patient denied any hallucinations; at the same time, the patient observed speaking something on the chair. The patient denied any feeling of hopelessness or helplessness. The patient denied any thoughts of harming himself or others. OBJECTIVE: VITAL SIGNS: Reviewed. Pulse is 91 and respirations are 15. MENTAL STATUS EXAM: The patient presented better. The patient is less confused. Mood described as okay. Affect was more reactive and mood congruent. Thought process seems to be concrete. Thought content, the patient denied any visual, auditory, or tactile hallucinations, but the patient was observed taking something on the chair. The patient denied thoughts of harming himself or others. Denied intent or plan. Insight and judgment seems to be improving. Impulses are well controlled. MEDICATIONS: Reviewed. The patient is off any psychotropic medication. The patient is on Tylenol, aspirin, Lipitor, Plavix, dextrose, Pepcid, Humalog, Bactroban, Nicoderm, and sodium chloride. LABORATORY DATA: Labs reviewed. Hemoglobin and hematocrit 12.9 and 39.8. Coagulation reviewed. Chemistry reviewed. Microbiology reviewed. 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 The patient has new stroke, which could be related to the patient's presentation. PLAN: Continue observation. No psychotropic medication needed. Dr. Foster will follow up on this patient on Thursday. We will see the patient every other day or call psychiatric team if any new concerns. The patient needs to be seen by Dr. Foster on 11/07/2018. Thank you very much for letting me to participate in the care of your patient. Savanah Galarza MD [facility]
[2018-11-05] MEDS: Mupirocin 2% Ointment 15 GM TUBE TOP SCH (21:51)
--- NOTE | 2018-11-06 07:51 | CP.PCM.PN ---
<Seferino Perez - Last Filed: 11/06/18 14:53> Subjective - Date & Time of Evaluation Date of Evaluation: 11/06/18 Time of Evaluation: 07:51 - Subjective Subjective: Seferino Perez DO, PGY-1 Hospitalist Progress Note for Dr. Conway Patient was seen and examined at bedside this AM. He reports feeling better this AM and is awake, alert, and oriented. He states he feels ready to get out of bed and work with PT. He otherwise has no new complaints this AM. Objective - Vital Signs/Intake and Output Vital Signs (last 24 hours): Temp Pulse Resp BP Pulse Ox 98.9 F 102 H 26 H 160/74 H 98 11/05/18 20:00 11/06/18 06:00 11/05/18 22:30 11/05/18 16:00 11/05/18 06:20 Intake and Output: 11/06/18 11/06/18 06:59 18:59 Intake Total 0 Output Total 300 Balance -300 - Medications Medications: Current Medications Acetaminophen (Tylenol 325mg Tab) 650 mg PO Q6H PRN PRN Reason: Pain, moderate (4-7) Last Admin: 11/04/18 01:15 Dose: 650 mg Aspirin (Aspirin Chewable) 81 mg PO DAILY [facility] Last Admin: 11/05/18 10:42 Dose: 81 mg Atorvastatin Calcium (Lipitor) 40 mg PO DIN [facility] Last Admin: 11/05/18 19:49 Dose: Not Given Clopidogrel Bisulfate (Plavix) 75 mg PO DAILY [facility] Last Admin: 11/05/18 10:42 Dose: 75 mg Dextrose (Dextrose 50% Inj) 0 ml IV STAT PRN; Protocol PRN Reason: Hypoglycemia Protocol Famotidine (Pepcid) 20 mg PO Q12 [facility] Last Admin: 11/05/18 21:51 Dose: 20 mg Dextrose (Dextrose 5% In Water 1000 Ml) 1,000 mls @ 0 mls/hr IV .Q0M PRN; Protocol PRN Reason: Hypoglycemia Protocol Sodium Chloride (Sodium Chloride 0.9%) 1,000 mls @ 100 mls/hr IV .Q10H [facility] Last Admin: 11/05/18 00:10 Dose: 100 mls/hr Insulin Human Lispro (Humalog Med) 0 units SC ACHS [facility]; Protocol Last Admin: 11/05/18 22:02 Dose: Not Given Mupirocin (Bactroban Ointment) 0 gm TOP BID [facility] Last Admin: 11/05/18 21:51 Dose: 1 applic Nicotine (Nicoderm Cq) 1 patch TD DAILY [facility] Last Admin: 11/05/18 10:42 Dose: 1 patch - Labs Labs: 11/05/18 08:20 11/05/18 08:20 PT 12.7 SECONDS (9.4-12.5) H 11/02/18 13:38 INR 1.12 11/02/18 13:38 APTT 39.3 Seconds (26.9-38.3) H 11/02/18 13:38 - Constitutional Appears: Non-toxic, No Acute Distress - Head Exam Head Exam: ATRAUMATIC, NORMOCEPHALIC - Eye Exam Eye Exam: EOMI, Normal appearance, PERRL - ENT Exam ENT Exam: Mucous Membranes Moist - Neck Exam Neck Exam: Full ROM, Normal Inspection - Respiratory Exam Respiratory Exam: Clear to Ausculation Bilateral, NORMAL BREATHING PATTERN. absent: Rales, Rhonchi, Wheezes - Cardiovascular Exam Cardiovascular Exam: REGULAR RHYTHM, RRR, +S1, +S2. absent: Gallop, Rubs, Murmur - GI/Abdominal Exam GI & Abdominal Exam: Soft, Normal Bowel Sounds. absent: Tenderness - Extremities Exam Extremities Exam: Normal Inspection. absent: Pedal Edema - Back Exam Back Exam: NORMAL INSPECTION - Neurological Exam Neurological Exam: Alert, Awake, Oriented x3 - Psychiatric Exam Psychiatric exam: Normal Affect, Normal Mood - Skin Skin Exam: Dry, Intact, Warm Assessment and Plan - Assessment and Plan (Free Text) Assessment: 53 yo M with PMH of HTN, DM, HLD and ischemic CVA (07/22) who presented from psych floor for hemorrhagic stroke. MRI 11/01/18: Subacute to chronic involving R temporal and frontal parietal ischemic infarct with hemorrhagic component w/ associated vasogenic edema. CTA head and neck also identified greater than 75% stenosis origin L ICA. 2. Mod-severe multifocal stenosis R ICA cavernous and supreclinoid segment. He was treated in ICU for hemorrhagic stroke. Repeat head CT was stable and he is subsequently transferred to remote telemetry. Plan: Hemorrhagic Stroke Continue ASA, plavix, statin per neuro recs Neurosurgery and neurointerventionalist consulted, no acute intervention at this time Continue PT for recs regarding next step, CHERRY vs ok for home discharge Continue q4h neuro checks, aspiration pxns Repeat head CT in 48 hours now per neurology recs F/u additional neurology recs Hx DM Continue ISS medium coverage Fingerstick glucose ACHS Hx HTN Continue to hold BP meds to maintain SBP between 120-160 Monitor closely with q4h VS Hx HLD Continue lipitor Hx tobacco abuse Nicotine Patch DVT/GI PPX: SCD, pepcid Full Code HHD with aspiration pxns Monitor on remote telemetry Patient seen, examined, and plan discussed with my attending Dr. Zoraida Perez, D.O. IM Resident PGY-1 Pager: [phone] <Navi Conway - Last Filed: 11/06/18 14:58> Objective - Vital Signs/Intake and Output Vital Signs (last 24 hours): Temp Pulse Resp BP Pulse Ox 98.0 F 123 H 20 159/98 H 97 11/06/18 06:00 11/06/18 10:00 11/06/18 06:00 11/06/18 06:00 11/06/18 06:00 Intake and Output: 11/06/18 11/06/18 06:59 18:59 Intake Total 0 Output Total 300 Balance -300 - Medications Medications: Current Medications Acetaminophen (Tylenol 325mg Tab) 650 mg PO Q6H PRN PRN Reason: Pain, moderate (4-7) Last Admin: 11/06/18 09:38 Dose: 650 mg Aspirin (Aspirin Chewable) 81 mg PO DAILY [facility] Last Admin: 11/06/18 09:37 Dose: 81 mg Atorvastatin Calcium (Lipitor) 40 mg PO DIN [facility] Last Admin: 11/05/18 19:49 Dose: Not Given Clopidogrel Bisulfate (Plavix) 75 mg PO DAILY [facility] Last Admin: 11/06/18 09:37 Dose: 75 mg Dextrose (Dextrose 50% Inj) 0 ml IV STAT PRN; Protocol PRN Reason: Hypoglycemia Protocol Famotidine (Pepcid) 20 mg PO Q12 [facility] Last Admin: 11/06/18 09:37 Dose: 20 mg Dextrose (Dextrose 5% In Water 1000 Ml) 1,000 mls @ 0 mls/hr IV .Q0M PRN; Protocol PRN Reason: Hypoglycemia Protocol Sodium Chloride (Sodium Chloride 0.9%) 1,000 mls @ 100 mls/hr IV .Q10H [facility] Last Admin: 11/05/18 00:10 Dose: 100 mls/hr Insulin Human Lispro (Humalog Med) 0 units SC ACHS [facility]; Protocol Last Admin: 11/06/18 12:12 Dose: Not Given Mupirocin (Bactroban Ointment) 0 gm TOP BID [facility] Last Admin: 11/06/18 10:43 Dose: 1 applic Nicotine (Nicoderm Cq) 1 patch TD DAILY [facility] Last Admin: 11/06/18 09:37 Dose: 1 patch - Labs Labs: 11/06/18 07:51 11/06/18 07:51 PT 12.7 SECONDS (9.4-12.5) H 11/02/18 13:38 INR 1.12 11/02/18 13:38 APTT 39.3 Seconds (26.9-38.3) H 11/02/18 13:38 Attending/Attestation - Attestation I have personally seen and examined this patient.: Yes I have fully participated in the care of the patient.: Yes I have reviewed all pertinent clinical information, including history, physical exam and plan: Yes Notes (Text): 11/06/18 14:57 53 year old male with past medical history of hypertension, diabetes, and CVA (07/2018) who was initially admitted under psychiatric unit for depression. He was transferred to medical floor for +MRI findings showing subacute to chronic ischemic infarction involving the right frontal, temporal and parietal l obes with accompanying hemorrhagic component. CTA head/neck showed critical stenosis of right ICA, >75% stenosis of left ICA and moderate to severe multifocal stenosis of the cavernous and supraclinoid segments of right ICA. He was transferred to ICU for close ICU monitoring. Neurology is following. Serial CT heads have been stable. Patient is on aspirin, plavix and statin. Neurosurgery and vascular evaluations were also appreciated; no acute intervention planned. Recommended outpatient follow up. PT and psychiatry follow up is requested for d/c recommendations. Navi Conway MD Hospitalist.
[2018-11-06 08:03] LABS: BASO # 0.06 K/mm3 (0.0-2.0); BASO % 0.6 % (0.0-3.0); EOS # 0.2 (0.0-0.7); EOS % 2.4 % (1.5-5.0); HEMOGLOBIN 11.5 g/dL (14.0-18.0); LYMPH # 2.7 (1.2-3.4); LYMPH % 28.6 % (22.0-35.0); MEAN CELL VOLUME 84.9 fl (80.0-105.0); MEAN CORPUSCULAR HEMOGLOBIN 26.7 pg (25.0-35.0); MEAN CORPUSCULAR HGB CONC 31.5 g/dl (31.0-37.0); MEAN PLATELET VOLUME 9.7 fl (7.0-11.0); MONO # 0.9 (0.1-0.6); MONO % 9.4 % (1.0-6.0); RBC 4.3 10^6/uL (3.5-6.1); RED CELL DISTRIBUTION WIDTH 15.9 % (11.5-14.5); WHITE BLOOD COUNT 9.3 10^3/uL (4.5-11.0)
[2018-11-06] MEDS: Insulin Lispro (humaLOG) MEDIUM Coverage SC SCH ×4 (08:08→21:40)
[2018-11-06 08:27] LABS: ALB/GLOB RATIO 1.2 (1.1-1.8); ALBUMIN 3.7 g/dL (3.0-4.8); ALT/SGPT 52 U/L (7-56); AST/SGOT 32 U/L (17-59); BLOOD UREA NITROGEN 19 mg/dL (7-21); CALCIUM 9.2 mg/dL (8.4-10.5); GFR NON-AFRICAN AMERICAN > 60
[2018-11-06] MEDS: Mupirocin 2% Ointment 15 GM TUBE TOP SCH ×2 (10:43→17:18)
[2018-11-07 08:04] LABS: BASO # 0.05 K/mm3 (0.0-2.0); BASO % 0.6 % (0.0-3.0); EOS # 0.2 (0.0-0.7); EOS % 2.9 % (1.5-5.0); HEMOGLOBIN 11.4 g/dL (14.0-18.0); LYMPH # 1.9 (1.2-3.4); LYMPH % 24.2 % (22.0-35.0); MEAN CELL VOLUME 84.6 fl (80.0-105.0); MEAN CORPUSCULAR HEMOGLOBIN 26.6 pg (25.0-35.0); MEAN CORPUSCULAR HGB CONC 31.5 g/dl (31.0-37.0); MEAN PLATELET VOLUME 9.8 fl (7.0-11.0); MONO # 0.7 (0.1-0.6); MONO % 8.9 % (1.0-6.0); RBC 4.28 10^6/uL (3.5-6.1); RED CELL DISTRIBUTION WIDTH 15.9 % (11.5-14.5); WHITE BLOOD COUNT 7.9 10^3/uL (4.5-11.0)
[2018-11-07 08:42] LABS: ALB/GLOB RATIO 1.3 (1.1-1.8); ALBUMIN 3.8 g/dL (3.0-4.8); ALT/SGPT 42 U/L (7-56); AST/SGOT 29 U/L (17-59); BLOOD UREA NITROGEN 22 mg/dL (7-21); CALCIUM 9.2 mg/dL (8.4-10.5); GFR NON-AFRICAN AMERICAN > 60
[2018-11-07] MEDS: Insulin Lispro (humaLOG) MEDIUM Coverage SC SCH ×4 (09:17→22:00)
[2018-11-07] MEDS: Mupirocin 2% Ointment 15 GM TUBE TOP SCH ×2 (09:19→17:11)
--- NOTE | 2018-11-07 16:36 | CP.PCM.PN ---
<Seferino Perez - Last Filed: 11/07/18 16:40> Subjective - Date & Time of Evaluation Date of Evaluation: 11/07/18 Time of Evaluation: 08:45 - Subjective Subjective: Seferino Perez DO, PGY-1 Hospitalist Progress Note for Dr. Conway Patient was seen and examined at bedside this AM. He was more agitated this AM and has been attempting to climb out of bed. His IV line failed because of his movements/agitation. Objective - Vital Signs/Intake and Output Vital Signs (last 24 hours): Temp Pulse Resp BP Pulse Ox 97.7 F 102 H 20 134/91 H 95 11/07/18 06:00 11/07/18 14:00 11/07/18 06:00 11/07/18 06:00 11/07/18 06:00 Intake and Output: 11/07/18 11/07/18 06:59 18:59 Intake Total 120 Output Total 0 Balance 120 - Medications Medications: Current Medications Acetaminophen (Tylenol 325mg Tab) 650 mg PO Q6H PRN PRN Reason: Pain, moderate (4-7) Last Admin: 11/07/18 09:30 Dose: 650 mg Aspirin (Aspirin Chewable) 81 mg PO DAILY [facility] Last Admin: 11/07/18 09:17 Dose: 81 mg Atorvastatin Calcium (Lipitor) 40 mg PO DIN [facility] Last Admin: 11/06/18 17:17 Dose: 40 mg Clopidogrel Bisulfate (Plavix) 75 mg PO DAILY [facility] Last Admin: 11/07/18 09:17 Dose: 75 mg Dextrose (Dextrose 50% Inj) 0 ml IV STAT PRN; Protocol PRN Reason: Hypoglycemia Protocol Famotidine (Pepcid) 20 mg PO Q12 [facility] Last Admin: 11/07/18 09:17 Dose: 20 mg Dextrose (Dextrose 5% In Water 1000 Ml) 1,000 mls @ 0 mls/hr IV .Q0M PRN; Protocol PRN Reason: Hypoglycemia Protocol Sodium Chloride (Sodium Chloride 0.9%) 1,000 mls @ 100 mls/hr IV .Q10H [facility] Last Admin: 11/05/18 00:10 Dose: 100 mls/hr Insulin Human Lispro (Humalog Med) 0 units SC ACHS [facility]; Protocol Last Admin: 11/07/18 12:56 Dose: Not Given Mupirocin (Bactroban Ointment) 0 gm TOP BID [facility] Last Admin: 11/07/18 09:19 Dose: 1 applic Nicotine (Nicoderm Cq) 1 patch TD DAILY [facility] Last Admin: 11/07/18 09:17 Dose: 1 patch - Labs Labs: 11/07/18 07:00 11/07/18 07:00 PT 12.7 SECONDS (9.4-12.5) H 11/02/18 13:38 INR 1.12 11/02/18 13:38 APTT 39.3 Seconds (26.9-38.3) H 11/02/18 13:38 - Constitutional Appears: No Acute Distress, Agitated - Head Exam Head Exam: ATRAUMATIC, NORMOCEPHALIC - Eye Exam Eye Exam: EOMI, Normal appearance, PERRL - ENT Exam ENT Exam: Mucous Membranes Moist - Neck Exam Neck Exam: Full ROM, Normal Inspection - Respiratory Exam Respiratory Exam: Clear to Ausculation Bilateral, NORMAL BREATHING PATTERN. a bsent: Rales, Rhonchi, Wheezes - Cardiovascular Exam Cardiovascular Exam: REGULAR RHYTHM, RRR, +S1, +S2. absent: Gallop, Rubs, Murmur - GI/Abdominal Exam GI & Abdominal Exam: Soft, Normal Bowel Sounds. absent: Tenderness - Extremities Exam Extremities Exam: Normal Inspection. absent: Pedal Edema - Back Exam Back Exam: NORMAL INSPECTION - Neurological Exam Neurological Exam: Alert, Awake, Oriented x3 - Psychiatric Exam Psychiatric exam: Agitated, Anxious - Skin Skin Exam: Dry, Intact, Warm Assessment and Plan - Assessment and Plan (Free Text) Assessment: 53 yo M with PMH of HTN, DM, HLD and ischemic CVA (07/22) who presented from psych floor for hemorrhagic stroke. MRI 11/01/18: Subacute to chronic involving R temporal and frontal parietal ischemic infarct with hemorrhagic component w/ associated vasogenic edema. CTA head and neck also identified greater than 75% stenosis origin L ICA. 2. Mod-severe multifocal stenosis R ICA cavernous and supreclinoid segment. He was treated in ICU for hemorrhagic stroke. Repeat head CT was stable and he is subsequently transferred to remote telemetry. He has been intermittently agitated requiring ativan. Plan: Hemorrhagic Stroke Continue ASA, plavix, statin per neuro recs Neurosurgery and neurointerventionalist consulted, no acute intervention at this time PT has recommended [facility], f/u mental health case manager for authorization tomorrow Continue q4h neuro checks, aspiration pxns Will add Ativan 0.5 mg IVP q4h PRN for agitation Repeat head CT in 24 hours per neurology recs F/u additional neurology recs Hx DM Continue ISS medium coverage Fingerstick glucose ACHS Hx HTN Continue to hold BP meds to maintain SBP between 120-160 Monitor closely with q4h VS Hx HLD Continue lipitor Hx tobacco abuse Nicotine Patch DVT/GI PPX: SCD, pepcid Full Code HHD with aspiration pxns Monitor on remote telemetry Patient seen, examined, and plan discussed with my attending Jeremy PowellO. IM Resident PGY-1 Pager: [phone] <Navi Conway - Last Filed: 11/07/18 17:52> Objective - Vital Signs/Intake and Output Vital Signs (last 24 hours): Temp Pulse Resp BP Pulse Ox 97.7 F 102 H 20 134/91 H 95 11/07/18 06:00 11/07/18 14:00 11/07/18 06:00 11/07/18 06:00 11/07/18 06:00 Intake and Output: 11/07/18 11/07/18 06:59 18:59 Intake Total 120 Output Total 0 Balance 120 - Medications Medications: Current Medications Acetaminophen (Tylenol 325mg Tab) 650 mg PO Q6H PRN PRN Reason: Pain, moderate (4-7) Last Admin: 11/07/18 09:30 Dose: 650 mg Aspirin (Aspirin Chewable) 81 mg PO DAILY [facility] Last Admin: 11/07/18 09:17 Dose: 81 mg Atorvastatin Calcium (Lipitor) 40 mg PO DIN [facility] Last Admin: 11/07/18 17:12 Dose: 40 mg Clopidogrel Bisulfate (Plavix) 75 mg PO DAILY [facility] Last Admin: 11/07/18 09:17 Dose: 75 mg Dextrose (Dextrose 50% Inj) 0 ml IV STAT PRN; Protocol PRN Reason: Hypoglycemia Protocol Famotidine (Pepcid) 20 mg PO Q12 [facility] Last Admin: 11/07/18 09:17 Dose: 20 mg Dextrose (Dextrose 5% In Water 1000 Ml) 1,000 mls @ 0 mls/hr IV .Q0M PRN; Protocol PRN Reason: Hypoglycemia Protocol Sodium Chloride (Sodium Chloride 0.9%) 1,000 mls @ 100 mls/hr IV .Q10H [facility] Last Admin: 11/05/18 00:10 Dose: 100 mls/hr Insulin Human Lispro (Humalog Med) 0 units SC ACHS [facility]; Protocol Last Admin: 11/07/18 17:12 Dose: 1 units Lorazepam (Ativan) 0.5 mg IVP Q4H PRN; Protocol PRN Reason: Agitation Mupirocin (Bactroban Ointment) 0 gm TOP BID [facility] Last Admin: 11/07/18 17:11 Dose: 1 applic Nicotine (Nicoderm Cq) 1 patch TD DAILY [facility] Last Admin: 11/07/18 09:17 Dose: 1 patch - Labs Labs: 11/07/18 07:00 11/07/18 07:00 PT 12.7 SECONDS (9.4-12.5) H 11/02/18 13:38 INR 1.12 11/02/18 13:38 APTT 39.3 Seconds (26.9-38.3) H 11/02/18 13:38 Attending/Attestation - Attestation I have personally seen and examined this patient.: Yes I have fully participated in the care of the patient.: Yes I have reviewed all pertinent clinical information, including history, physical exam and plan: Yes Notes (Text): 11/07/18 17:51 53 year old male with past medical history of hypertension, diabetes, and CVA (07/2018) who was initially admitted under psychiatric unit for depression. He was transferred to medical floor for +MRI findings showing subacute to chronic ischemic infarction involving the right frontal, temporal and parietal lobes with accompanying hemorrhagic component. CTA head/neck showed critical stenosis of right ICA, >75% stenosis of left ICA and moderate to severe multifocal stenosis of the cavernous and supraclinoid se gments of right ICA. He was transferred to ICU for close ICU monitoring. Neurology is following. Serial CT heads have been stable. Patient is on aspirin, plavix and statin. Neurosurgery and vascular evaluations were also appreciated; no acute intervention planned. Recommended outpatient follow up. Patient has on and off periods of agitation. He is on ativan prn. Psychiatry is following. PT follow up was appreciated who is currently recommending acute rehab. Navi Conway MD Hospitalist.
[2018-11-07] MEDS: Sodium Chloride 0.9% 1,000 ML IV SCH (20:06)
--- NOTE | 2018-11-07 20:23 | CON ---
DATE: 11/07/2018 HISTORY OF PRESENT ILLNESS: The patient is a 53-year-old male, who is being followed by Psychiatry in the medical floor after he suffered of a stroke, which occurred on the psychiatric floor. I have been following the patient after he is transferred, and Dr. Galarza's also saw the patient on 11/05/2018. The patient remains alert and oriented to current circumstances, month, year, and location. He reports that he is feeling better. He denies any hopelessness, helplessness, suicidal thoughts, wishes, or any hallucinations at this time. Affect is constricted and he is not responding to internal stimuli. Please note that patient was observed speaking of something on a chair with Dr. Galarza who met with him two days ago. As noted, the patient denies any thoughts of harming himself or others, and there have been no major behavioral issues. MEDICATIONS: Reviewed. The patient is not currently on any psychiatric medications. Labs and vitals were reviewed. 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 PLAN: We will continue observation and hold on psychiatric medications and follow the patient up every other day while he is being managed medically. Next followup will be on 11/09/2018. Ryan Foster MD
[2018-11-08] MEDS: Sodium Chloride 0.9% 1,000 ML IV SCH (05:58)
[2018-11-08 07:18] LABS: BASO # 0.07 K/mm3 (0.0-2.0); BASO % 0.8 % (0.0-3.0); EOS # 0.3 (0.0-0.7); EOS % 3.5 % (1.5-5.0); HEMOGLOBIN 12.4 g/dL (14.0-18.0); LYMPH # 2.8 (1.2-3.4); LYMPH % 31.6 % (22.0-35.0); MEAN CORPUSCULAR HEMOGLOBIN 27.4 pg (25.0-35.0); MEAN CORPUSCULAR HGB CONC 32.3 g/dl (31.0-37.0); MEAN PLATELET VOLUME 9.7 fl (7.0-11.0); MONO % 11.3 % (1.0-6.0); RBC 4.52 10^6/uL (3.5-6.1); WHITE BLOOD COUNT 8.9 10^3/uL (4.5-11.0)
[2018-11-08 08:04] LABS: ALB/GLOB RATIO 1.3 (1.1-1.8); ALBUMIN 3.9 g/dL (3.0-4.8); ALT/SGPT 39 U/L (7-56); AST/SGOT 25 U/L (17-59); BLOOD UREA NITROGEN 19 mg/dL (7-21); CALCIUM 9.4 mg/dL (8.4-10.5); GFR NON-AFRICAN AMERICAN > 60
[2018-11-08] MEDS: Insulin Lispro (humaLOG) MEDIUM Coverage SC SCH ×4 (08:27→22:58)
--- NOTE | 2018-11-08 10:00 | CP.PCM.PN ---
Subjective - Date & Time of Evaluation Date of Evaluation: 11/08/18 Time of Evaluation: 09:00 - Subjective Subjective: Neurology Progress Note for Dr. Agudelo's service Patient seen and examined at bedside. Patient noted to be agitated overnight requiring sedation and 1:1 sitter. Patient currently denies any complaints and further 12 point ROS unremarkable at this time. Objective - Vital Signs/Intake and Output Vital Signs (last 24 hours): Temp Pulse Resp BP Pulse Ox 98 F 84 19 138/86 97 11/08/18 08:51 11/08/18 08:51 11/08/18 08:51 11/08/18 08:51 11/08/18 08:51 Intake and Output: 11/08/18 11/08/18 06:59 18:59 Intake Total 1840 Balance 1840 - Medications Medications: Current Medications Acetaminophen (Tylenol 325mg Tab) 650 mg PO Q6H PRN PRN Reason: Pain, moderate (4-7) Last Admin: 11/07/18 09:30 Dose: 650 mg Aspirin (Aspirin Chewable) 81 mg PO DAILY [facility] Last Admin: 11/07/18 09:17 Dose: 81 mg Atorvastatin Calcium (Lipitor) 40 mg PO DIN [facility] Last Admin: 11/07/18 17:12 Dose: 40 mg Clopidogrel Bisulfate (Plavix) 75 mg PO DAILY [facility] Last Admin: 11/07/18 09:17 Dose: 75 mg Dextrose (Dextrose 50% Inj) 0 ml IV STAT PRN; Protocol PRN Reason: Hypoglycemia Protocol Famotidine (Pepcid) 20 mg PO Q12 [facility] Last Admin: 11/07/18 21:21 Dose: 20 mg Dextrose (Dextrose 5% In Water 1000 Ml) 1,000 mls @ 0 mls/hr IV .Q0M PRN; Protocol PRN Reason: Hypoglycemia Protocol Sodium Chloride (Sodium Chloride 0.9%) 1,000 mls @ 100 mls/hr IV .Q10H [facility] Last Admin: 11/08/18 05:58 Dose: 100 mls/hr Insulin Human Lispro (Humalog Med) 0 units SC ACHS [facility]; Protocol Last Admin: 11/08/18 08:27 Dose: Not Given Lorazepam (Ativan) 0.5 mg IVP Q4H PRN; Protocol PRN Reason: Agitation Last Admin: 11/08/18 04:33 Dose: 0.5 mg Mupirocin (Bactroban Ointment) 0 gm TOP BID [facility] Last Admin: 11/07/18 17:11 Dose: 1 applic Nicotine (Nicoderm Cq) 1 patch TD DAILY [facility] Last Admin: 11/07/18 09:17 Dose: 1 patch - Labs Labs: 11/08/18 06:40 11/08/18 07:00 PT 12.7 SECONDS (9.4-12.5) H 11/02/18 13:38 INR 1.12 11/02/18 13:38 APTT 39.3 Seconds (26.9-38.3) H 11/02/18 13:38 - Additional Findings Additional findings: - Constitutional Appears: No Acute Distress - Head Exam Head Exam: ATRAUMATIC, NORMOCEPHALIC - Eye Exam Eye Exam: EOMI, Normal appearance, PERRL. absent: Conjunctival injection, Nystagmus, Periorbital swelling, Periorbital tenderness, Scleral icterus Pupil Exam: NORMAL ACCOMODATION, PERRL. absent: Fixed, Irregular, Miosis, Mydriatic, Unequal - ENT Exam ENT Exam: Mucous Membranes Moist - Neck Exam Neck exam: Positive for: Full Rom - Respiratory Exam Respiratory Exam: Clear to Auscultation Bilateral, NORMAL BREATHING PATTERN - Cardiovascular Exam Cardiovascular Exam: REGULAR RHYTHM - GI/Abdominal Exam GI & Abdominal Exam: Normal Bowel Sounds, Soft. absent: Tenderness - Neurological Exam Neurological exam: Alert, CN II-XII Intact, Oriented x3, Reflexes Normal - Expanded Neurological Exam Expanded Patient oriented to: person, place, time Cranial nerves: EOM's Intact: Normal, Facial Palsey w/Forehead Movement: Normal, Facial Palsey w/o Forehead Movement: Normal, Tongue Deviation: Normal Cerebellar Function: Finger to Nose: Normal Upper motor neuron: Babinski Sign: Normal, Silvestre Neglect: Normal, Pronator Drift: Normal Sensory exam: Lower Extremity Light Touch: Normal, Upper Extremity Light Touch: Normal Neuro motor strength exam: Left Upper Extremity: 3, Right Upper Extremity: 4, Left Lower Extremity: 3, Right Lower Extremity: 4 Coma Scale Eye Opening: SPONTANEOUS Coma Scale Motor Response: OBEYS COMMANDS Coma Scale Verbal: Oriented Coma Scale Total: 15 - Psychiatric Exam Psychiatric exam: Normal Affect, Normal Mood - Skin Skin Exam: Dry, Intact, Normal Color, Warm Assessment and Plan - Assessment and Plan (Free Text) Assessment: 53 year old male with a pmh of 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 Plan: -MRI Brain (11/01) showed subacute to chronic ischemic infarction involving the right frontal, temporal and parietal lobes with accompanying hemorrhagic compone nt, associated vasogenic edema, and hemosiderin ring -CT Head (11/05) showed no interval changes in right MCA infarct -CT Head (11/04) showed no interval changes in right MCA infarct -CT Head (11/03) showed no interval changes in right MCA infarct -CTA Head/Neck (11/02) showed critical stenosis of right ICA, >75% stenosis of left ICA, and moderate to severe multifocal stenosis of the cavernous and supraclinoid segments of right ICA -Continue ASA and Plavix -Continue PT -Neurosurgery consulted, Dr. Martinez, no neurosurgical interventions indicated at this time -Neurointerventionalist consulted, Dr. Cruz, recommends observation at this time -Further recommendations as per Dr. Agudelo case discussed with attending, Dr. Agudelo
[2018-11-08] MEDS: Mupirocin 2% Ointment 15 GM TUBE TOP SCH ×2 (10:56→18:16)
--- NOTE | 2018-11-08 15:20 | CP.PCM.PN ---
<Ha Alexandra - Last Filed: 11/08/18 23:25> Subjective - Date & Time of Evaluation Date of Evaluation: 11/08/18 Time of Evaluation: 10:00 - Subjective Subjective: Ha Alexandra, PGY-1 Medicine Progress Note for Dr. Conway: Pt was seen and examined this AM at bedside. Pt was somnolent in the AM but he denied any visual hallucinations. Pt last night had some SI/HI so he is on a 1:1. He is oriented today AOx3. He states that he is having no further headaches and there are no further neurologic deficits as pt can move R UE and R LE spontaneously. He has no other acute complaints at this time. He will be evaled by psych later today. At this time pt has no SI/HI. Objective - Vital Signs/Intake and Output Vital Signs (last 24 hours): Temp Pulse Resp BP Pulse Ox 98 F 84 19 138/86 97 11/08/18 08:51 11/08/18 08:51 11/08/18 08:51 11/08/18 08:51 11/08/18 08:51 Intake and Output: 11/08/18 11/08/18 06:59 18:59 Intake Total 1840 Balance 1840 - Medications Medications: Current Medications Acetaminophen (Tylenol 325mg Tab) 650 mg PO Q6H PRN PRN Reason: Pain, moderate (4-7) Last Admin: 11/07/18 09:30 Dose: 650 mg Aspirin (Aspirin Chewable) 81 mg PO DAILY [facility] Last Admin: 11/08/18 10:55 Dose: 81 mg Atorvastatin Calcium (Lipitor) 40 mg PO DIN [facility] Last Admin: 11/07/18 17:12 Dose: 40 mg Clopidogrel Bisulfate (Plavix) 75 mg PO DAILY [facility] Last Admin: 11/08/18 10:57 Dose: 75 mg Dextrose (Dextrose 50% Inj) 0 ml IV STAT PRN; Protocol PRN Reason: Hypoglycemia Protocol Famotidine (Pepcid) 20 mg PO Q12 [facility] Last Admin: 11/08/18 10:57 Dose: 20 mg Dextrose (Dextrose 5% In Water 1000 Ml) 1,000 mls @ 0 mls/hr IV .Q0M PRN; Protocol PRN Reason: Hypoglycemia Protocol Sodium Chloride (Sodium Chloride 0.9%) 1,000 mls @ 100 mls/hr IV .Q10H [facility] Last Admin: 11/08/18 05:58 Dose: 100 mls/hr Insulin Human Lispro (Humalog Med) 0 units SC ACHS [facility]; Protocol Last Admin: 11/08/18 08:27 Dose: Not Given Lorazepam (Ativan) 0.5 mg IVP Q4H PRN; Protocol PRN Reason: Agitation Last Admin: 11/08/18 12:12 Dose: 0.5 mg Mupirocin (Bactroban Ointment) 0 gm TOP BID [facility] Last Admin: 11/08/18 10:56 Dose: 1 applic Nicotine (Nicoderm Cq) 1 patch TD DAILY [facility] Last Admin: 11/08/18 10:57 Dose: 1 patch - Labs Labs: 11/08/18 06:40 11/08/18 07:00 PT 12.7 SECONDS (9.4-12.5) H 11/02/18 13:38 INR 1.12 11/02/18 13:38 APTT 39.3 Seconds (26.9-38.3) H 11/02/18 13:38 - Constitutional Appears: Non-toxic, No Acute Distress - Head Exam Head Exam: ATRAUMATIC, NORMOCEPHALIC Additional comments: Pt has L sided facial droop and is unable to puff out cheeks on L side. - Eye Exam Eye Exam: EOMI, Normal appearance, PERRL - Respiratory Exam Respiratory Exam: Clear to Ausculation Bilateral, NORMAL BREATHING PATTERN. absent: Accessory Muscle Use, Rales, Rhonchi, Wheezes, Respiratory Distress - Cardiovascular Exam Cardiovascular Exam: RRR, +S1, +S2. absent: Gallop, Rubs - GI/Abdominal Exam GI & Abdominal Exam: Soft, Normal Bowel Sounds. absent: Firm, Guarding, Rigid, Tenderness - Extremities Exam Extremities Exam: Normal Inspection, Pedal Edema - Back Exam Back Exam: NORMAL INSPECTION. absent: CVA tenderness (L), CVA tenderness (R) - Neurological Exam Neurological Exam: Alert, Awake, Oriented x3 Neuro motor strength exam: Left Upper Extremity: 0, Right Upper Extremity: 5, Left Lower Extremity: 0, Right Lower Extremity: 5 Additional comments: Cranial nerves: EOM's Intact: Normal, Tongue Deviation: Normal Sensory exam: Lower Extremity 2 Point Discrimination: Abnormal Left, Lower Extremity Light Touch: Abnormal Left, Lower Extremity Pin Prick: Abnormal Left, Lower Extremity Temperature: Abnormal Left, Upper Extremity 2 Point Discrimination: Abnormal Left, Upper Extremity Light Touch: Abnormal Left, Upper Extremity Pin Prick: Abnormal Left, Upper Extremity Temperature: Abnormal Left Coma Scale Eye Opening: SPONTANEOUS Coma Scale Motor Response: OBEYS COMMANDS Coma Scale Verbal: Oriented Coma Scale Total: 15 - Psychiatric Exam Additional comments: somnolent - Skin Skin Exam: Dry, Normal Color, Warm Assessment and Plan - Assessment and Plan (Free Text) Assessment: Pt is a 53 yo M with pmhx of HTN, DM, HLD and ischemic CVA (07/22) who presented from psych floor for hemorrhagic stroke. MRI 11/01/18: Subacute to chronic involving R temporal and frontal parietal ischemic infarct with hemorrhagic component. Associated residual vasogenic edema. Hemosiderin ring present. Head and neck CT: 1. Critical stenosis origin R ICA. Greater than 75% stenosis origin L ICA. 2. Mod-severe multifocal stenosis R ICA cavernous and supreclinoid segment. No sig stenosis L cavernous and intracranial ICA. 3. Slight increase in stenosis of R M1 MCA. CT head 11/03: No change in large MCA distribution infarct, No evidence of midline shift. CT head:11/05 showed no signs of acute hemorrhage. Pt transferred out of ICU and on to floors. Plan: 1) Hemorrhagic stroke: - Pt transferred out of ICU to floors. - MRI 11/01/18: Subacute to chronic involving R temporal and frontal parietal ischemic infarct with hemorrhagic component. Associated residual vasogenic edema. Hemosiderin ring present. - Head and neck CT:11/02/18: 1. Critical stenosis origin R ICA. Greater than 75% stenosis origin L ICA. 2. Mod-severe multifocal stenosis R ICA cavernous and supreclinoid segment. No sig stenosis L cavernous and intracranial ICA. 3. Slight increase in stenosis of R M1 MCA. please refer to full report for additional details - CT head 11/03: No change in large MCA distribution infarct, No evidence of midline shift. - CT Head 11/05: No acute intracranial hemorrhage. Re-demonstration of large chronic R MCA territory infarct - Please refer to full report for details - Lipid Panel - Cholesterol - 164, LDL - 71, HDL - 35, T - Asa, plavix - Cont per neuro - Cont statin - Aspiration precautions - High fall risk - OOB w/ assistance - Head of bed elevation 30 - Neuro Q4 - VS Q4 - Neuro consult - Dr. Agudelo - Recs appreciated - Neurosurg Consult - Dr. Martinez - No neurosurgical intervention at this time - Neurointerventionalist consult - Dr. Cruz - No acute intervention at this time. - Psych Consult - Dr. Pavon - Ativan .5 PRN for agitation. - PT eval - Acute rehab 2) Hx of DM: - ISS - Medium - Finger sticks QACHS - Hypoglycemia protocol ordered PRN 3) Hx of HTN: - Holding BP meds at this time, as pt is normotensive - Will continue to closely monitor - Q4 vital signs 4) Hx of HLD: - Cont lipitor 40qd 5) Hx of tobacco abuse: - Nicotine Patch PPx: GI: Pepcid DVT: SCDs Case seen and discussed with Dr. Zoraida Alexandra, PGY-1 <Sam Santana - Last Filed: 11/10/18 17:08> Objective - Vital Signs/Intake and Output Vital Signs (last 24 hours): Temp Pulse Resp BP Pulse Ox 97.9 F 73 20 141/77 98 11/10/18 17:02 11/10/18 17:02 11/10/18 17:02 11/10/18 17:02 11/10/18 17:02 Intake and Output: 11/10/18 11/10/18 06:59 18:59 Intake Total 720 1800 Output Total 0 Balance 720 1800 - Medications Medications: Current Medications Acetaminophen (Tylenol 325mg Tab) 650 mg PO Q6H PRN PRN Reason: Pain, moderate (4-7) Last Admin: 11/10/18 14:30 Dose: 650 mg Alprazolam (Xanax) 0.25 mg PO BID [facility]; Protocol Stop: 11/16/18 18:01 Last Admin: 11/10/18 10:27 Dose: 0.25 mg Alprazolam (Xanax) 0.25 mg PO HS [facility]; Protocol Last Admin: 11/09/18 21:56 Dose: 0.25 mg Aspirin (Aspirin Chewable) 81 mg PO DAILY [facility] Last Admin: 11/10/18 10:28 Dose: 81 mg Atorvastatin Calcium (Lipitor) 40 mg PO DIN [facility] Last Admin: 11/09/18 17:55 Dose: 40 mg Clopidogrel Bisulfate (Plavix) 75 mg PO DAILY [facility] Last Admin: 11/10/18 10:26 Dose: 75 mg Dextrose (Dextrose 50% Inj) 0 ml IV STAT PRN; Protocol PRN Reason: Hypoglycemia Protocol Famotidine (Pepcid) 20 mg PO Q12 [facility] Last Admin: 11/10/18 10:26 Dose: 20 mg Dextrose (Dextrose 5% In Water 1000 Ml) 1,000 mls @ 0 mls/hr IV .Q0M PRN; Protocol PRN Reason: Hypoglycemia Protocol Insulin Human Lispro (Humalog Med) 0 units SC ACHS [facility]; Protocol Last Admin: 11/10/18 11:30 Dose: Not Given Lorazepam (Ativan) 0.5 mg IVP Q4H PRN; Protocol PRN Reason: Agitation Last Admin: 11/09/18 20:34 Dose: 0.5 mg Metoprolol Tartrate (Lopressor) 12.5 mg PO 0800,1800 [facility] Last Admin: 11/10/18 08:00 Dose: 12.5 mg Mupirocin (Bactroban Ointment) 0 gm TOP BID [facility] Last Admin: 11/09/18 17:53 Dose: 1 applic Nicotine (Nicoderm Cq) 1 patch TD DAILY [facility] Last Admin: 11/10/18 10:24 Dose: 1 patch Quetiapine Fumarate (Seroquel) 25 mg PO DAILY@0900 [facility]; Protocol Quetiapine Fumarate (Seroquel) 75 mg PO DAILY@1900 [facility]; Protocol - Labs Labs: 11/10/18 06:30 11/10/18 06:30 PT 12.7 SECONDS (9.4-12.5) H 11/02/18 13:38 INR 1.12 11/02/18 13:38 APTT 39.3 Seconds (26.9-38.3) H 11/02/18 13:38 Attending/Attestation - Attestation I have personally seen and examined this patient.: Yes I have fully participated in the care of the patient.: Yes I have reviewed all pertinent clinical information, including history, physical exam and plan: Yes
--- NOTE | 2018-11-08 15:51 | PN ---
DATE: 11/08/2018 SUBJECTIVE: The patient is 53-year-old male, multiple medical issues including [id number] strokes. Initially, the patient was admitted into the psychiatric inpatient unit for depression and possible suicidal ideation. The patient got another stroke and needed to be transferred to ICU. The patient was downgraded to the medical side. The patient was seen by Dr. Foster over the weekend. The patient presented better. The patient was oriented in time, place and circumstances. The patient denied any thoughts of harming himself or others. As per report, the patient was agitated overnight. This automobile and property underwriter believe that agitation and restless behavior was related to delirium and recent stroke. The patient was seen today at the morning time. The patient presented to be alert. The patient denied feeling depressed. Denied any thoughts of harming himself or others. The patient reported that he feels better. The patient denied any hallucinations during this automobile and property underwriter's visit. Vital signs are stable. Temperature 98, pulse 84, blood pressure 138/86, respiration 19, oxygen saturation is 97. Medications reviewed. The patient is on Tylenol, aspirin, Lipitor, Plavix, dextrose, Pepcid, Humalog, Ativan 0.5 mg IV push every 4 hours as needed for agitation. So far, the patient got only two doses and Ativan could be converted to p.o. form. The patient is on mupirocin, Nicoderm, and sodium chloride. Labs reviewed. Most recent was from today. Hemoglobin and hematocrit 12.4 and 38.4. Coagulation reviewed. Chemistry reviewed. MENTAL STATUS EXAMINATION: As this automobile and property underwriter described above, the patient presented relatively well. Intermittent eye contact. Mood described as "I feel fine." Affect was constricted, but mildly reactive. Thought process concrete. Thought content, the patient denied thoughts of harming himself or others. Denied intent or plan. The patient denied hearing voices, denied seeing things. Denied paranoid ideation. The patient does not present to be psychotic. Insight and judgment improving. Impulses are still unpredictable, but better controlled. IMPRESSION: Most likely, the patient has mood disorder due to general medical condition. The patient had stroke and mood spectrum disorder related to that. On top of that, the patient has intermittent episodes of confusion and agitation, which is related to delirium stage as well as history of stroke. PLAN: This automobile and property underwriter is not recommending any antidepressant at this point because all of the antidepressants could increase risk of bleeding. On top of that, antipsychotic medication could give the same side effects. This automobile and property underwriter would recommend to change IV Ativan to p.o. form 0.5 mg twice a day as needed for restlessness and agitation. The patient needs to be followed up with outpatient neurologist as well as psychiatrist. As per medical team report, the patient is medically cleared to go to subacute rehab. No contraindication for that. In regards of that plan, the patient needs to be seen by psychiatrist within 24 hours. Meanwhile, from the psychiatric standpoint, there is nothing else could be implemented. Moreover, the patient's symptoms are related to the medical issues what the patient has. From the psychiatric standpoint, the patient pose no imminent danger to self or others, but requires followup with psychiatrist in the subacute rehab facility. Thank you very much for letting me participate in care of your patient. This automobile and property underwriter will sign off. Savanah Galarza MD
[2018-11-09] MEDS: Insulin Lispro (humaLOG) MEDIUM Coverage SC SCH ×4 (08:07→22:25)
--- NOTE | 2018-11-09 11:14 | CP.PCM.PN ---
Subjective - Date & Time of Evaluation Date of Evaluation: 11/09/18 Time of Evaluation: 10:00 - Subjective Subjective: Neurology Progress Note for Dr. Agudelo's service Patient seen and examined at bedside. Patient noted to be agitated overnight requiring sedation with geodon and 1:1 sitter. Patient currently denies any complaints but is somnolent and further 12 point ROS unremarkable at this time. Objective - Vital Signs/Intake and Output Vital Signs (last 24 hours): Temp Pulse Resp BP Pulse Ox 97.8 F 107 H 20 157/100 H 96 11/09/18 08:06 11/09/18 08:06 11/09/18 08:06 11/09/18 08:06 11/09/18 08:06 - Medications Medications: Current Medications Acetaminophen (Tylenol 325mg Tab) 650 mg PO Q6H PRN PRN Reason: Pain, moderate (4-7) Last Admin: 11/07/18 09:30 Dose: 650 mg Alprazolam (Xanax) 0.25 mg PO BID [facility]; Protocol Stop: 11/16/18 18:01 Alprazolam (Xanax) 0.25 mg PO HS [facility]; Protocol Aspirin (Aspirin Chewable) 81 mg PO DAILY [facility] Last Admin: 11/08/18 10:55 Dose: 81 mg Atorvastatin Calcium (Lipitor) 40 mg PO DIN [facility] Last Admin: 11/08/18 18:16 Dose: Not Given Clopidogrel Bisulfate (Plavix) 75 mg PO DAILY [facility] Last Admin: 11/08/18 10:57 Dose: 75 mg Dextrose (Dextrose 50% Inj) 0 ml IV STAT PRN; Protocol PRN Reason: Hypoglycemia Protocol Famotidine (Pepcid) 20 mg PO Q12 [facility] Last Admin: 11/08/18 10:57 Dose: 20 mg Dextrose (Dextrose 5% In Water 1000 Ml) 1,000 mls @ 0 mls/hr IV .Q0M PRN; Protocol PRN Reason: Hypoglycemia Protocol Sodium Chloride (Sodium Chloride 0.9%) 1,000 mls @ 100 mls/hr IV .Q10H [facility] Last Admin: 11/08/18 05:58 Dose: 100 mls/hr Insulin Human Lispro (Humalog Med) 0 units SC ACHS [facility]; Protocol Last Admin: 11/09/18 08:07 Dose: 1 units Lorazepam (Ativan) 0.5 mg IVP Q4H PRN; Protocol PRN Reason: Agitation Last Admin: 11/09/18 08:07 Dose: 0.5 mg Mupirocin (Bactroban Ointment) 0 gm TOP BID [facility] Last Admin: 11/08/18 18:16 Dose: 1 applic Nicotine (Nicoderm Cq) 1 patch TD DAILY [facility] Last Admin: 11/08/18 10:57 Dose: 1 patch Ziprasidone (Geodon Cap) 20 mg PO AMHS [facility]; Protocol - Labs Labs: 11/08/18 06:40 11/08/18 07:00 PT 12.7 SECONDS (9.4-12.5) H 11/02/18 13:38 INR 1.12 11/02/18 13:38 APTT 39.3 Seconds (26.9-38.3) H 11/02/18 13:38 - Additional Findings Additional findings: - Constitutional Appears: No Acute Distress, somnolent - Head Exam Head Exam: ATRAUMATIC, NORMOCEPHALIC - Eye Exam Eye Exam: EOMI, Normal appearance, PERRL. absent: Conjunctival injection, Periorbital swelling, Periorbital tenderness, Scleral icterus Pupil Exam: NORMAL ACCOMODATION, PERRL. - ENT Exam ENT Exam: Mucous Membranes Moist - Neck Exam Neck exam: Positive for: Full Rom - Respiratory Exam Respiratory Exam: Clear to Auscultation Bilateral, NORMAL BREATHING PATTERN - Cardiovascular Exam Cardiovascular Exam: REGULAR RHYTHM - GI/Abdominal Exam GI & Abdominal Exam: Normal Bowel Sounds, Soft. absent: Tenderness - Neurological Exam Neurological exam: Alert, CN II-XII Intact, Oriented x3, Reflexes Normal - Expanded Neurological Exam Expanded Patient oriented to: person, place, time Cranial nerves: EOM's Intact: Normal, Facial Palsey w/Forehead Movement: Normal, Facial Palsey w/o Forehead Movement: Normal, Tongue Deviation: Normal Upper motor neuron: Silvestre Neglect: Normal, Pronator Drift: Normal Neuro motor strength exam: Left Upper Extremity: 3, Right Upper Extremity: 4, Left Lower Extremity: 3, Right Lower Extremity: 4 Coma Scale Eye Opening: SPONTANEOUS Coma Scale Motor Response: OBEYS COMMANDS Coma Scale Verbal: Oriented Coma Scale Total: 15 - Psychiatric Exam Psychiatric exam: Normal Affect, Normal Mood - Skin Skin Exam: Dry, Intact, Normal Color, Warm Assessment and Plan - Assessment and Plan (Free Text) Assessment: 53 year old male with a pmh of 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 Plan: -MRI Brain (11/01) showed subacute to chronic ischemic infarction involving the right frontal, temporal and parietal lobes with accompanying hemorrhagic component, associated vasogenic edema, and hemosiderin ring -CT Head (11/05) showed no interval changes in right MCA infarct -CT Head (11/04) showed no interval changes in right MCA infarct -CT Head (11/03) showed no interval changes in right MCA infarct -CTA Head/Neck (11/02) showed critical stenosis of right ICA, >75% stenosis of left ICA, and moderate to severe multifocal stenosis of the cavernous and supraclinoid segments of right ICA -Continue ASA and Plavix -Continue PT, recommend acute rehab -Neurosurgery consulted, Dr. Martinez, no neurosurgical interventions in dicated at this time -Neurointerventionalist consulted, Dr. Cruz, recommends observation at this ti me - patient continues to be agitated at night will start seroquel 50mg HS -Further recommendations as per Dr. Agudelo case discussed with attending, Dr. Agudelo
[2018-11-09] MEDS: Mupirocin 2% Ointment 15 GM TUBE TOP SCH ×2 (11:46→17:53)
--- NOTE | 2018-11-09 15:57 | CP.PCM.PN ---
<Ha Alexandra - Last Filed: 11/09/18 20:35> Subjective - Date & Time of Evaluation Date of Evaluation: 11/09/18 Time of Evaluation: 09:30 - Subjective Subjective: Ha Alexandra, PGY-1 Medicine Progress Note for Dr. Santana: Pt was seen and examined this AM at bedside. Pt was somnolent in the AM but he denied any visual hallucinations. Pt continues to experience bouts of delirium and agitation. He states that he is having no further headaches and there are no further neurologic deficits as pt can move R UE and R LE spontaneously. He has no other acute complaints at this time. He will be evaled by psych later today. At this time pt has no SI/HI. Objective - Vital Signs/Intake and Output Vital Signs (last 24 hours): Temp Pulse Resp BP Pulse Ox 97.8 F 107 H 20 157/100 H 96 11/09/18 08:06 11/09/18 08:06 11/09/18 08:06 11/09/18 08:06 11/09/18 08:06 - Medications Medications: Current Medications Acetaminophen (Tylenol 325mg Tab) 650 mg PO Q6H PRN PRN Reason: Pain, moderate (4-7) Last Admin: 11/07/18 09:30 Dose: 650 mg Alprazolam (Xanax) 0.25 mg PO BID [facility]; Protocol Stop: 11/16/18 18:01 Alprazolam (Xanax) 0.25 mg PO HS [facility]; Protocol Aspirin (Aspirin Chewable) 81 mg PO DAILY [facility] Last Admin: 11/09/18 11:43 Dose: 81 mg Atorvastatin Calcium (Lipitor) 40 mg PO DIN [facility] Last Admin: 11/08/18 18:16 Dose: Not Given Clopidogrel Bisulfate (Plavix) 75 mg PO DAILY [facility] Last Admin: 11/09/18 11:46 Dose: 75 mg Dextrose (Dextrose 50% Inj) 0 ml IV STAT PRN; Protocol PRN Reason: Hypoglycemia Protocol Famotidine (Pepcid) 20 mg PO Q12 [facility] Last Admin: 11/09/18 11:46 Dose: 20 mg Dextrose (Dextrose 5% In Water 1000 Ml) 1,000 mls @ 0 mls/hr IV .Q0M PRN; Protocol PRN Reason: Hypoglycemia Protocol Sodium Chloride (Sodium Chloride 0.9%) 1,000 mls @ 100 mls/hr IV .Q10H [facility] Last Admin: 11/08/18 05:58 Dose: 100 mls/hr Insulin Human Lispro (Humalog Med) 0 units SC ACHS [facility]; Protocol Last Admin: 11/09/18 11:50 Dose: 5 units Lorazepam (Ativan) 0.5 mg IVP Q4H PRN; Protocol PRN Reason: Agitation Last Admin: 11/09/18 11:43 Dose: 0.5 mg Mupirocin (Bactroban Ointment) 0 gm TOP BID [facility] Last Admin: 11/09/18 11:46 Dose: 1 applic Nicotine (Nicoderm Cq) 1 patch TD DAILY [facility] Last Admin: 11/09/18 11:46 Dose: 1 patch Ziprasidone (Geodon Cap) 20 mg PO AMHS [facility]; Protocol - Labs Labs: 11/08/18 06:40 11/08/18 07:00 PT 12.7 SECONDS (9.4-12.5) H 11/02/18 13:38 INR 1.12 11/02/18 13:38 APTT 39.3 Seconds (26.9-38.3) H 11/02/18 13:38 - Constitutional Appears: Non-toxic - Head Exam Head Exam: ATRAUMATIC, NORMOCEPHALIC Additional comments: Pt has L sided facial droop and is unable to puff out cheeks on L side. - Eye Exam Eye Exam: EOMI, Normal appearance, PERRL - Respiratory Exam Respiratory Exam: Clear to Ausculation Bilateral, NORMAL BREATHING PATTERN. absent: Accessory Muscle Use, Decreased Breath Sounds, Rales, Rhonchi, Wheezes, Respiratory Distress - Cardiovascular Exam Cardiovascular Exam: RRR, +S1, +S2. absent: Gallop, Rubs - GI/Abdominal Exam GI & Abdominal Exam: Soft, Normal Bowel Sounds. absent: Firm, Guarding, Rigid, Tenderness - Extremities Exam Additional comments: Pt has no noted movement for LUE or LLE. - Back Exam Back Exam: NORMAL INSPECTION. absent: CVA tenderness (L), CVA tenderness (R) - Neurological Exam Neurological Exam: Altered, Awake Neuro motor strength exam: Left Upper Extremity: 0, Right Upper Extremity: 5, Left Lower Extremity: 0, Right Lower Extremity: 5 Additional comments: Cranial nerves: EOM's Intact: Normal, Tongue Deviation: Normal Sensory exam: Lower Extremity 2 Point Discrimination: Abnormal Left, Lower Extremity Light Touch: Abnormal Left, Lower Extremity Pin Prick: Abnormal Left, Lower Extremity Temperature: Abnormal Left, Upper Extremity 2 Point Discrimination: Abnormal Left, Upper Extremity Light Touch: Abnormal Left, Upper Extremity Pin Prick: Abnormal Left, Upper Extremity Temperature: Abnormal Left Coma Scale Eye Opening: SPONTANEOUS Coma Scale Motor Response: OBEYS COMMANDS Coma Scale Verbal: Oriented Coma Scale Total: 15 - Psychiatric Exam Psychiatric exam: Agitated - Skin Skin Exam: Dry, Normal Color, Warm Assessment and Plan - Assessment and Plan (Free Text) Assessment: Pt is a 53 yo M with pmhx of HTN, DM, HLD and ischemic CVA (07/22) who presented from psych floor for hemorrhagic stroke. MRI 11/01/18: Subacute to chronic involving R temporal and frontal parietal ischemic infarct with hemorrhagic component. Associated residual vasogenic edema. Hemosiderin ring present. Head and neck CT: 1. Critical stenosis origin R ICA. Greater than 75% stenosis origin L ICA. 2. Mod-severe multifocal stenosis R ICA cavernous and supreclinoid segment. No sig stenosis L cavernous and intracranial ICA. 3. Slight increase in stenosis of R M1 MCA. CT head 11/03: No change in large MCA distribution infarct, No evidence of midline shift. CT head:11/05 showed no signs of acute hemorrhage. Pt transferred out of ICU and on to floors. Pt is awaiting acceptance to Acute rehab per PT recs, but pt continues to be on 1:1 due to agitation. Plan: 1) Hemorrhagic stroke: - Pt transferred out of ICU to floors. - MRI 11/01/18: Subacute to chronic involving R temporal and frontal parietal ischemic infarct with hemorrhagic component. Associated residual vasogenic jose rafael ma. Hemosiderin ring present. - Head and neck CT:11/02/18: 1. Critical stenosis origin R ICA. Greater than 75% stenosis origin L ICA. 2. Mod-severe multifocal stenosis R ICA cavernous and supreclinoid segment. No sig stenosis L cavernous and intracranial ICA. 3. Slight increase in stenosis of R M1 MCA. please refer to full report for additional details - CT head 11/03: No change in large MCA distribution infarct, No evidence of midline shift. - CT Head 11/05: No acute intracranial hemorrhage. 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 Agudelo - Reckain appreciated - Neurosurg Consult - Dr. Martinez - No neurosurgical intervention at this time - Neurointerventionalist consult - Dr. Cruz - No acute intervention at this time. - Psych Consult - Dr. Pavon - Ativan .5 PRN for agitation and PO Geodon 20 [facility]. - PT eval - Acute rehab 2) Hx of DM: - ISS - Medium - Finger sticks QACHS - Hypoglycemia protocol ordered PRN 3) Hx of HTN: - Cont home metoprolol 12.5mg BID - Q4 vital signs 4) Hx of HLD: - Cont lipitor 40qd 5) Hx of tobacco abuse: - Nicotine Patch PPx: GI: Pepcid DVT: SCDs Dispo: Pt will need Acute rehab per PT, but with psych component due to hx of depression and agitation during hospitalization. Pt will need to have 1:1 d/ariane for 24 hours before placement can be made. Case seen and discussed with Dr. Esther Alexandra, PGY-1 <Sam Santana - Last Filed: 11/10/18 17:07> Objective - Vital Signs/Intake and Output Vital Signs (last 24 hours): Temp Pulse Resp BP Pulse Ox 97.9 F 73 20 141/77 98 11/10/18 17:02 11/10/18 17:02 11/10/18 17:02 11/10/18 17:02 11/10/18 17:02 Intake and Output: 11/10/18 11/10/18 06:59 18:59 Intake Total 720 1800 Output Total 0 Balance 720 1800 - Medications Medications: Current Medications Acetaminophen (Tylenol 325mg Tab) 650 mg PO Q6H PRN PRN Reason: Pain, moderate (4-7) Last Admin: 11/10/18 14:30 Dose: 650 mg Alprazolam (Xanax) 0.25 mg PO BID [facility]; Protocol Stop: 11/16/18 18:01 Last Admin: 11/10/18 10:27 Dose: 0.25 mg Alprazolam (Xanax) 0.25 mg PO HS [facility]; Protocol Last Admin: 11/09/18 21:56 Dose: 0.25 mg Aspirin (Aspirin Chewable) 81 mg PO DAILY [facility] Last Admin: 11/10/18 10:28 Dose: 81 mg Atorvastatin Calcium (Lipitor) 40 mg PO DIN [facility] Last Admin: 11/09/18 17:55 Dose: 40 mg Clopidogrel Bisulfate (Plavix) 75 mg PO DAILY [facility] Last Admin: 11/10/18 10:26 Dose: 75 mg Dextrose (Dextrose 50% Inj) 0 ml IV STAT PRN; Protocol PRN Reason: Hypoglycemia Protocol Famotidine (Pepcid) 20 mg PO Q12 [facility] Last Admin: 11/10/18 10:26 Dose: 20 mg Dextrose (Dextrose 5% In Water 1000 Ml) 1,000 mls @ 0 mls/hr IV .Q0M PRN; Protocol PRN Reason: Hypoglycemia Protocol Insulin Human Lispro (Humalog Med) 0 units SC ACHS [facility]; Protocol Last Admin: 11/10/18 11:30 Dose: Not Given Lorazepam (Ativan) 0.5 mg IVP Q4H PRN; Protocol PRN Reason: Agitation Last Admin: 11/09/18 20:34 Dose: 0.5 mg Metoprolol Tartrate (Lopressor) 12.5 mg PO 0800,1800 [facility] Last Admin: 11/10/18 08:00 Dose: 12.5 mg Mupirocin (Bactroban Ointment) 0 gm TOP BID [facility] Last Admin: 11/09/18 17:53 Dose: 1 applic Nicotine (Nicoderm Cq) 1 patch TD DAILY [facility] Last Admin: 11/10/18 10:24 Dose: 1 patch Quetiapine Fumarate (Seroquel) 25 mg PO DAILY@0900 [facility]; Protocol Quetiapine Fumarate (Seroquel) 75 mg PO DAILY@1900 [facility]; Protocol - Labs Labs: 11/10/18 06:30 11/10/18 06:30 PT 12.7 SECONDS (9.4-12.5) H 11/02/18 13:38 INR 1.12 11/02/18 13:38 APTT 39.3 Seconds (26.9-38.3) H 11/02/18 13:38 Attending/Attestation - Attestation I have personally seen and examined this patient.: Yes I have fully participated in the care of the patient.: Yes I have reviewed all pertinent clinical information, including history, physical exam and plan: Yes Notes (Text): 11/10/18 17:07 Medical record note made by the resident after discussion with my direction and input after the patient was personally seen and examined by me. I have reviewed the chart and agree that the record accurately reflects by personal performance of the history, physical exam, data review, and medical decision-making, in the course for the patient. I have also personally directed the plan of care.
--- NOTE | 2018-11-09 21:42 | PN ---
DATE: 11/09/2018 SUBJECTIVE: The patient still in delirium stage, has episodes of confusion and this inhibited behavioral, saying things like he wants to . Also he has episodes of hallucinations. This hand sign writer would like to emphasize the fact that the patient does not have history of mental illness, but the patient became depressed right after the patient had a stroke. The patient became very depressed. The patient had another stroke up to what he started to see things. The patient was transferred from the psychiatric inpatient unit to the medical site at present moment. The patient is on one-to-one because overnight the patient had episodes of agitation, trying to climb off the bed and also hallucinations. This hand sign writer had concerns about SSRI, which could prolong bleeding time that is why SSRIs were not given. At the present moment as per medical team report, the patient responded well to Geodon and will continue Geodon 20 mg twice a day as well as for restless and anxiety and anxious behavior. This hand sign writer will implement Xanax 0.25 mg three times a day. PHYSICAL EXAMINATION: VITAL SIGNS: Reviewed. Temperature 97.7, pulse is 116, blood pressure 126/68, respiration 26 and saturation is 96%. MENTAL STATUS EXAM The patient was alert. The patient remembered this hand sign writer by his name. Intermittent eye contact. Mood described as I don't feel good, I want to go home." Speech was underproductive. He has no answers. Thought process seems to be concrete. Thought content, the patient denied visual, auditory, tactile hallucinations today, most recent hallucination was yesterday. The patient was seeing people who were not there. The patient adamantly denied seeing any crocodile or monsters or trains or cars coming towards him. Of note, the patient had such hallucinations while being on the psychiatric inpatient unit. Insight and judgment seems to be impaired. Impulses are unpredictable. This hand sign writer with like to emphasize the fact that the patients condition of delirium could give the patient such presentation. LABORATORY DATA: Reviewed. Most recent was from yesterday. MEDICATIONS: Reviewed. Xanax was started, aspirin, Lipitor, Plavix, dextrose, Pepcid, Humalog, Ativan, Bactroban, Nicoderm, Geodon 20 mg twice a day. 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 The patient obviously in delirium stage which is related to strokes and multiple medical issues. PLAN: The patient is inconsistent with his plans. Initially, the patient wanted to go to subacute rehab and was recommended physical therapy and the patient agreed to go to subacute rehab while this hand sign writer was rounding. Later on, medical team contacted this hand sign writer saying that the patient refused to go to subacute rehab. The patient wants to go back home in consistency with decision could be related to delirium. This hand sign writer will initiate Geodon and small dose of benzodiazepines which could help pt with his anxiety restlessness/hallucinations/delirium. Family needs to be involved. Case management needs to be involved. We will follow up and advise accordingly. Discussed with Dr. Santana in details. We will see and evaluate the patient tomorrow. Care of this patient took more than 45 minutes of this hand sign writer's time. Savanah Galazra MD MTDJanelle
[2018-11-10] MEDS: Sodium Chloride 0.9% 1,000 ML IV SCH (01:36)
[2018-11-10 06:49] LABS: BASO # 0.03 K/mm3 (0.0-2.0); BASO % 0.4 % (0.0-3.0); EOS # 0.3 (0.0-0.7); EOS % 4.5 % (1.5-5.0); HEMOGLOBIN 11.7 g/dL (14.0-18.0); LYMPH # 2.7 (1.2-3.4); LYMPH % 35.2 % (22.0-35.0); MEAN CELL VOLUME 84.7 fl (80.0-105.0); MEAN CORPUSCULAR HEMOGLOBIN 27.1 pg (25.0-35.0); MEAN CORPUSCULAR HGB CONC 32.1 g/dl (31.0-37.0); MEAN PLATELET VOLUME 9.3 fl (7.0-11.0); MONO # 0.8 (0.1-0.6); MONO % 10.7 % (1.0-6.0); RBC 4.31 10^6/uL (3.5-6.1); RED CELL DISTRIBUTION WIDTH 15.7 % (11.5-14.5); WHITE BLOOD COUNT 7.6 10^3/uL (4.5-11.0)
[2018-11-10 07:37] LABS: ALB/GLOB RATIO 1.1 (1.1-1.8); ALBUMIN 3.5 g/dL (3.0-4.8); ALT/SGPT 26 U/L (7-56); AST/SGOT 29 U/L (17-59); BLOOD UREA NITROGEN 12 mg/dL (7-21); GFR NON-AFRICAN AMERICAN > 60
[2018-11-10] MEDS: Insulin Lispro (humaLOG) MEDIUM Coverage SC SCH ×3 (08:14→18:01)
[2018-11-10] MEDS: Mupirocin 2% Ointment 15 GM TUBE TOP SCH ×2 (10:00→18:02)
--- NOTE | 2018-11-10 13:18 | CP.PCM.PN ---
<Ha Alexandra - Last Filed: 11/10/18 14:58> Subjective - Date & Time of Evaluation Date of Evaluation: 11/10/18 Time of Evaluation: 13:35 - Subjective Subjective: Ha Alexandra, PGY-1 Medicine Progress Note for Dr. Santana: Pt was seen and examined this AM at bedside. Pt was somnolent in the AM but he denied any visual hallucinations. Pt continues to experience bouts of agitation. He states that he is having no further headaches and there are no further neurologic deficits as pt can move R UE and R LE spontaneously. He has no other acute complaints at this time. He was re-evaled by psych later today. At this time pt has no SI/HI. 1:1 d/ariane earlier today per psych. Objective - Vital Signs/Intake and Output Vital Signs (last 24 hours): Temp Pulse Resp BP Pulse Ox 97.5 F L 88 20 151/93 H 95 11/10/18 08:36 11/10/18 08:36 11/10/18 08:36 11/10/18 08:36 11/10/18 08:36 Intake and Output: 11/10/18 11/10/18 06:59 18:59 Intake Total 720 1800 Output Total 0 Balance 720 1800 - Medications Medications: Current Medications Acetaminophen (Tylenol 325mg Tab) 650 mg PO Q6H PRN PRN Reason: Pain, moderate (4-7) Last Admin: 11/07/18 09:30 Dose: 650 mg Alprazolam (Xanax) 0.25 mg PO BID [facility]; Protocol Stop: 11/16/18 18:01 Last Admin: 11/10/18 10:27 Dose: 0.25 mg Alprazolam (Xanax) 0.25 mg PO HS [facility]; Protocol Last Admin: 11/09/18 21:56 Dose: 0.25 mg Aspirin (Aspirin Chewable) 81 mg PO DAILY [facility] Last Admin: 11/10/18 10:28 Dose: 81 mg Atorvastatin Calcium (Lipitor) 40 mg PO DIN [facility] Last Admin: 11/09/18 17:55 Dose: 40 mg Clopidogrel Bisulfate (Plavix) 75 mg PO DAILY [facility] Last Admin: 11/10/18 10:26 Dose: 75 mg Dextrose (Dextrose 50% Inj) 0 ml IV STAT PRN; Protocol PRN Reason: Hypoglycemia Protocol Famotidine (Pepcid) 20 mg PO Q12 [facility] Last Admin: 11/10/18 10:26 Dose: 20 mg Dextrose (Dextrose 5% In Water 1000 Ml) 1,000 mls @ 0 mls/hr IV .Q0M PRN; Protocol PRN Reason: Hypoglycemia Protocol Insulin Human Lispro (Humalog Med) 0 units SC ACHS [facility]; Protocol Last Admin: 11/10/18 08:14 Dose: Not Given Lorazepam (Ativan) 0.5 mg IVP Q4H PRN; Protocol PRN Reason: Agitation Last Admin: 11/09/18 20:34 Dose: 0.5 mg Metoprolol Tartrate (Lopressor) 12.5 mg PO 0800,1800 [facility] Last Admin: 11/10/18 08:00 Dose: 12.5 mg Mupirocin (Bactroban Ointment) 0 gm TOP BID [facility] Last Admin: 11/09/18 17:53 Dose: 1 applic Nicotine (Nicoderm Cq) 1 patch TD DAILY [facility] Last Admin: 11/10/18 10:24 Dose: 1 patch Quetiapine Fumarate (Seroquel) 25 mg PO DAILY@0900 [facility]; Protocol Quetiapine Fumarate (Seroquel) 75 mg PO DAILY@1900 [facility]; Protocol Ziprasidone (Geodon Cap) 20 mg PO AMHS [facility]; Protocol Last Admin: 11/10/18 10:27 Dose: 20 mg - Labs Labs: 11/10/18 06:30 11/10/18 06:30 PT 12.7 SECONDS (9.4-12.5) H 11/02/18 13:38 INR 1.12 11/02/18 13:38 APTT 39.3 Seconds (26.9-38.3) H 11/02/18 13:38 - Constitutional Appears: Non-toxic - Head Exam Additional comments: Pt has L sided facial droop and is unable to puff out cheeks on L side. - Eye Exam Eye Exam: EOMI, Normal appearance, PERRL - Respiratory Exam Respiratory Exam: Clear to Ausculation Bilateral, NORMAL BREATHING PATTERN. absent: Accessory Muscle Use, Rales, Rhonchi, Wheezes, Respiratory Distress, Stridor - Cardiovascular Exam Cardiovascular Exam: RRR, +S1, +S2. absent: Gallop, Rubs - GI/Abdominal Exam GI & Abdominal Exam: Soft, Normal Bowel Sounds. absent: Firm, Guarding, Rigid, Tenderness - Extremities Exam Additional comments: Pt has no noted movement for LUE or LLE. - Back Exam Back Exam: NORMAL INSPECTION. absent: CVA tenderness (L), CVA tenderness (R) - Neurological Exam Neurological Exam: Alert, Awake, Oriented x3 Neuro motor strength exam: Left Upper Extremity: 0, Right Upper Extremity: 5, Left Lower Extremity: 0, Right Lower Extremity: 5 Additional comments: Cranial nerves: EOM's Intact: Normal, Tongue Deviation: Normal Sensory exam: Lower Extremity 2 Point Discrimination: Abnormal Left, Lower Extremity Light Touch: Abnormal Left, Lower Extremity Pin Prick: Abnormal Left, Lower Extremity Temperature: Abnormal Left, Upper Extremity 2 Point Discr imination: Abnormal Left, Upper Extremity Light Touch: Abnormal Left, Upper Extremity Pin Prick: Abnormal Left, Upper Extremity Temperature: Abnormal Left Coma Scale Eye Opening: SPONTANEOUS Coma Scale Motor Response: OBEYS COMMANDS Coma Scale Verbal: Oriented Coma Scale Total: 15 - Psychiatric Exam Psychiatric exam: Normal Affect, Normal Mood - Skin Skin Exam: Dry, Normal Color, Warm Assessment and Plan - Assessment and Plan (Free Text) Assessment: Pt is a 53 yo M with pmhx of HTN, DM, HLD and ischemic CVA (07/22) who presented from psych floor for hemorrhagic stroke. MRI 11/01/18: Subacute to chronic involving R temporal and frontal parietal ischemic infarct with hemorrhagic component. Associated residual vasogenic edema. Hemosiderin ring present. Head and neck CT: 1. Critical stenosis origin R ICA. Greater than 75% stenosis origin L ICA. 2. Mod-severe multifocal stenosis R ICA cavernous and supreclinoid segment. No sig stenosis L cavernous and intracranial ICA. 3. Slight increase in stenosis of R M1 MCA. CT head 11/03: No change in large MCA distribution infarct, No evidence of midline shift. CT head:11/05 showed no signs of acute hemorrhage. Pt transferred out of ICU and on to floors. Pt is awaiting acceptance to Acute rehab per PT recs. Pt accepted to [facility], will await 24 hours without need for 1:1. 1:1 d/ariane per psych. Plan: 1) Hemorrhagic stroke: - Pt transferred out of ICU to floors. - MRI 11/01/18: Subacute to chronic involving R temporal and frontal parietal ischemic infarct with hemorrhagic component. Associated residual vasogenic edema. Hemosiderin ring present. - Head and neck CT:11/02/18: 1. Critical stenosis origin R ICA. Greater than 75% stenosis origin L ICA. 2. Mod-severe multifocal stenosis R ICA cavernous and supreclinoid segment. No sig stenosis L cavernous and intracranial ICA. 3. Slight increase in stenosis of R M1 MCA. please refer to full report for additional details - CT head 11/03: No change in large MCA distribution infarct, No evidence of midline shift. - CT Head 11/05: No acute intracranial hemorrhage. Re-demonstration of large chronic R MCA territory infarct - Please refer to full report for details - Lipid Panel - Cholesterol - 164, LDL - 71, HDL - 35, T - Asa, plavix - Cont per neuro - Cont statin - Aspiration precautions - High fall risk - OOB w/ assistance - Head of bed elevation 30 - Neuro Q4 - VS Q4 - Neuro consult - Dr. Agudelo - Seroquel 25mg AM and 75mg QHS - Neurosurg Consult - Dr. Martinez - No neurosurgical intervention at this time - Neurointerventionalist consult - Dr. Cruz - No acute intervention at this time. - Psych Consult - Dr. Pavon - Ativan .5 PRN for agitation, Geodon d/ariane since neuro added on seroquel - PT eval - Acute rehab 2) Hx of DM: - ISS - Medium - Finger sticks QACHS - Hypoglycemia protocol ordered PRN 3) Hx of HTN: - Cont home metoprolol 12.5mg BID - Q4 vital signs 4) Hx of HLD: - Cont lipitor 40qd 5) Hx of tobacco abuse: - Nicotine Patch PPx: GI: Pepcid DVT: SCDs Dispo: Pt accepted to [facility]. Pt and GF are in agreement with plan. 1:1 D/ariane earlier today, will await 24 hour period of no 1:1 prior to d/c. Case seen and discussed with Dr. Esther Alexandra, PGY-1 <Sam Santana - Last Filed: 11/10/18 17:07> Objective - Vital Signs/Intake and Output Vital Signs (last 24 hours): Temp Pulse Resp BP Pulse Ox 97.5 F L 88 20 151/93 H 95 11/10/18 08:36 11/10/18 08:36 11/10/18 08:36 11/10/18 08:36 11/10/18 08:36 Intake and Output: 11/10/18 11/10/18 06:59 18:59 Intake Total 720 1800 Output Total 0 Balance 720 1800 - Medications Medications: Current Medications Acetaminophen (Tylenol 325mg Tab) 650 mg PO Q6H PRN PRN Reason: Pain, moderate (4-7) Last Admin: 11/10/18 14:30 Dose: 650 mg Alprazolam (Xanax) 0.25 mg PO BID [facility]; Protocol Stop: 11/16/18 18:01 Last Admin: 11/10/18 10:27 Dose: 0.25 mg Alprazolam (Xanax) 0.25 mg PO HS [facility]; Protocol Last Admin: 11/09/18 21:56 Dose: 0.25 mg Aspirin (Aspirin Chewable) 81 mg PO DAILY [facility] Last Admin: 11/10/18 10:28 Dose: 81 mg Atorvastatin Calcium (Lipitor) 40 mg PO DIN [facility] Last Admin: 11/09/18 17:55 Dose: 40 mg Clopidogrel Bisulfate (Plavix) 75 mg PO DAILY [facility] Last Admin: 11/10/18 10:26 Dose: 75 mg Dextrose (Dextrose 50% Inj) 0 ml IV STAT PRN; Protocol PRN Reason: Hypoglycemia Protocol Famotidine (Pepcid) 20 mg PO Q12 [facility] Last Admin: 11/10/18 10:26 Dose: 20 mg Dextrose (Dextrose 5% In Water 1000 Ml) 1,000 mls @ 0 mls/hr IV .Q0M PRN; Protocol PRN Reason: Hypoglycemia Protocol Insulin Human Lispro (Humalog Med) 0 units SC ACHS [facility]; Protocol Last Admin: 11/10/18 11:30 Dose: Not Given Lorazepam (Ativan) 0.5 mg IVP Q4H PRN; Protocol PRN Reason: Agitation Last Admin: 11/09/18 20:34 Dose: 0.5 mg Metoprolol Tartrate (Lopressor) 12.5 mg PO 0800,1800 [facility] Last Admin: 11/10/18 08:00 Dose: 12.5 mg Mupirocin (Bactroban Ointment) 0 gm TOP BID [facility] Last Admin: 11/09/18 17:53 Dose: 1 applic Nicotine (Nicoderm Cq) 1 patch TD DAILY [facility] Last Admin: 11/10/18 10:24 Dose: 1 patch Quetiapine Fumarate (Seroquel) 25 mg PO DAILY@0900 [facility]; Protocol Quetiapine Fumarate (Seroquel) 75 mg PO DAILY@1900 [facility]; Protocol - Labs Labs: 11/10/18 06:30 11/10/18 06:30 PT 12.7 SECONDS (9.4-12.5) H 11/02/18 13:38 INR 1.12 11/02/18 13:38 APTT 39.3 Seconds (26.9-38.3) H 11/02/18 13:38 Attending/Attestation - Attestation I have personally seen and examined this patient.: Yes I have fully participated in the care of the patient.: Yes I have reviewed all pertinent clinical information, including history, physical exam and plan: Yes Notes (Text): 11/10/18 17:01 Patient was seen and examined with medical videographer. 53 year old male with past medical history of hypertension, diabetes, and CVA (07/2018) who was initially admitted under psychiatric unit for depression. He was transferred to medical floor for +MRI findings showing subacute to chronic ischemic infarction involving the right frontal, temporal and parietal lobes wit h accompanying hemorrhagic component. CTA head/neck showed critical stenosis of right ICA, >75% stenosis of left ICA and moderate to severe multifocal stenosis of the cavernous and supraclinoid segments of right ICA. He was initially transferred to ICU for close ICU monitoring. Patient was erin luated by Neurosurgery and felt these MRI finding are chronic, no acute intervention is needed. Patient is on aspirin, plavix and statin. . [place]ar surgery recommended outpatient follow up. Psychiatry is following. PT recommends acute rehab , patient was on 1.1 and was agitated yesterday. His agitation is better , medications has been adjusted. Once he will of 1.1 for 24 hour, he will be discharged to Rehab. Prognosis is guarded. 11/10/18 17:06
--- NOTE | 2018-11-10 13:20 | CP.PCM.PN ---
Subjective - Date & Time of Evaluation Date of Evaluation: 11/10/18 Time of Evaluation: 09:00 - Subjective Subjective: Neurology Progress Note for Dr. Agudelo's service Patient seen and examined at bedside. Patient was again noted to be agitated overnight requiring sedation and 1:1 sitter in the AM. Patient currently denies any complaints. further 12 point ROS unremarkable at this time. Objective - Vital Signs/Intake and Output Vital Signs (last 24 hours): Temp Pulse Resp BP Pulse Ox 97.5 F L 88 20 151/93 H 95 11/10/18 08:36 11/10/18 08:36 11/10/18 08:36 11/10/18 08:36 11/10/18 08:36 Intake and Output: 11/10/18 11/10/18 06:59 18:59 Intake Total 720 1800 Output Total 0 Balance 720 1800 - Medications Medications: Current Medications Acetaminophen (Tylenol 325mg Tab) 650 mg PO Q6H PRN PRN Reason: Pain, moderate (4-7) Last Admin: 11/07/18 09:30 Dose: 650 mg Alprazolam (Xanax) 0.25 mg PO BID [facility]; Protocol Stop: 11/16/18 18:01 Last Admin: 11/10/18 10:27 Dose: 0.25 mg Alprazolam (Xanax) 0.25 mg PO HS [facility]; Protocol Last Admin: 11/09/18 21:56 Dose: 0.25 mg Aspirin (Aspirin Chewable) 81 mg PO DAILY [facility] Last Admin: 11/10/18 10:28 Dose: 81 mg Atorvastatin Calcium (Lipitor) 40 mg PO DIN [facility] Last Admin: 11/09/18 17:55 Dose: 40 mg Clopidogrel Bisulfate (Plavix) 75 mg PO DAILY [facility] Last Admin: 11/10/18 10:26 Dose: 75 mg Dextrose (Dextrose 50% Inj) 0 ml IV STAT PRN; Protocol PRN Reason: Hypoglycemia Protocol Famotidine (Pepcid) 20 mg PO Q12 [facility] Last Admin: 11/10/18 10:26 Dose: 20 mg Dextrose (Dextrose 5% In Water 1000 Ml) 1,000 mls @ 0 mls/hr IV .Q0M PRN; Protocol PRN Reason: Hypoglycemia Protocol Insulin Human Lispro (Humalog Med) 0 units SC ACHS [facility]; Protocol Last Admin: 11/10/18 08:14 Dose: Not Given Lorazepam (Ativan) 0.5 mg IVP Q4H PRN; Protocol PRN Reason: Agitation Last Admin: 11/09/18 20:34 Dose: 0.5 mg Metoprolol Tartrate (Lopressor) 12.5 mg PO 0800,1800 [facility] Last Admin: 11/10/18 08:00 Dose: 12.5 mg Mupirocin (Bactroban Ointment) 0 gm TOP BID [facility] Last Admin: 11/09/18 17:53 Dose: 1 applic Nicotine (Nicoderm Cq) 1 patch TD DAILY [facility] Last Admin: 11/10/18 10:24 Dose: 1 patch Quetiapine Fumarate (Seroquel) 25 mg PO DAILY@0900 [facility]; Protocol Quetiapine Fumarate (Seroquel) 75 mg PO DAILY@1900 [facility]; Protocol Ziprasidone (Geodon Cap) 20 mg PO AMHS [facility]; Protocol Last Admin: 11/10/18 10:27 Dose: 20 mg - Labs Labs: 11/10/18 06:30 11/10/18 06:30 PT 12.7 SECONDS (9.4-12.5) H 11/02/18 13:38 INR 1.12 11/02/18 13:38 APTT 39.3 Seconds (26.9-38.3) H 11/02/18 13:38 - Additional Findings Additional findings: - Constitutional Appears: No Acute Distress, - Head Exam Head Exam: ATRAUMATIC, NORMOCEPHALIC - Eye Exam Eye Exam: EOMI, Normal appearance, PERRL. absent: Conjunctival injection, Periorbital swelling, Periorbital tenderness, Scleral icterus Pupil Exam: NORMAL ACCOMODATION, PERRL. - ENT Exam ENT Exam: Mucous Membranes Moist - Neck Exam Neck exam: Positive for: Full Rom - Respiratory Exam Respiratory Exam: Clear to Auscultation Bilateral, NORMAL BREATHING PATTERN - Cardiovascular Exam Cardiovascular Exam: REGULAR RHYTHM - GI/Abdominal Exam GI & Abdominal Exam: Normal Bowel Sounds, Soft. absent: Tenderness - Neurological Exam Neurological exam: Alert, CN II-XII Intact, Oriented x3, Reflexes Normal - Expanded Neurological Exam Expanded Patient oriented to: person, place, time Cranial nerves: EOM's Intact: Normal, Facial Palsey w/Forehead Movement: Normal, Facial Palsey w/o Forehead Movement: Normal, Tongue Deviation: Normal Upper motor neuron: Silvestre Neglect: Normal, Pronator Drift: Normal Neuro motor strength exam: Left Upper Extremity: 3, Right Upper Extremity: 4, Left Lower Extremity: 3, Right Lower Extremity: 4 Coma Scale Eye Opening: SPONTANEOUS Coma Scale Motor Response: OBEYS COMMANDS Coma Scale Verbal: Oriented Coma Scale Total: 15 - Psychiatric Exam Psychiatric exam: Normal Affect, Normal Mood - Skin Skin Exam: Dry, Intact, Normal Color, Warm Assessment and Plan - Assessment and Plan (Free Text) Assessment: 53 year old male with a pmh of 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 Plan: -MRI Brain (11/01) showed subacute to chronic ischemic infarction involving the right frontal, temporal and parietal lobes with accompanying hemorrhagic component, associated vasogenic edema, and hemosiderin ring -CT Head (11/05) showed no interval changes in right MCA infarct -CT Head (11/04) showed no interval changes in right MCA infarct -CT Head (11/03) showed no interval changes in right MCA infarct -CTA Head/Neck (11/02) showed critical stenosis of right ICA, >75% stenosis of left ICA, and moderate to severe multifocal stenosis of the cavernous and supraclinoid segments of right ICA -Continue ASA and Plavix -Continue PT, recommend acute rehab -Neurosurgery consulted, Dr. Martinez, no neurosurgical interventions indicated at this time -Neurointerventionalist consulted, Dr. Cruz, recommends observation at this time -patient continues to be agitated at night will increase his seroquel to 25mg in the morning and 75mg at 7pm. -Further recommendations as per Dr. Agudelo case discussed with attending, Dr. Agudeol
--- NOTE | 2018-11-10 21:20 | PN ---
DATE: 11/10/2018 SUBJECTIVE: As per report overnight, the patient had episodes of agitation, but no aggression. The patient was followed up by Neurology team, recommended Seroquel. This engineering writer will discontinue Geodon. The patient was seen today. The patient presented to be alert. The patient's girlfriend is next to him. The patient reported that he feels good. The patient denied any thoughts of harming himself or others. At present moment, the patient wants to go to subacute rehab. Discussed with the patient's girlfriend, the patient gave permission to do so. The patient's girlfriend want the patient to be referred to subacute rehab, which is closer to her house, which is in [place]. This engineering writer pass that message to case management and they will follow up on that. OBJECTIVE: VITAL SIGNS: Besides that, vital signs reviewed. Temperature 97.5, pulse is 88, blood pressure 151/93, respirations 20, and oxygen saturation is 95. MENTAL STATUS EXAM: The patient appears to be alert, somewhat withdrawn. Flat affect. Mood described as okay. Affect was flat. Thought process seems to be concrete. Thought content, the patient denied any psychotic symptoms. Does not appear to be responding to internal stimuli. Insight and judgment seems to be limited, but improving. Impulses are better controlled today. MEDICATIONS: Reviewed. The patient is on Tylenol, Xanax twice a day and at the nighttime, Lipitor, Plavix, dextrose, Pepcid, Humalog, Ativan as needed, Lopressor, Nicoderm, and Seroquel was started by Neurology team 25 mg daily and 75 mg at the nighttime. This engineering writer will discontinue Geodon. LABORATORY DATA: Labs reviewed. Most recent was from today. Coagulation reviewed. Chemistry reviewed. 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 The patient was diagnosed with stroke. PLAN: Seroquel was started by Neurology team. Xanax as needed. This engineering writer will not initiate any serotonin reuptake inhibitors. I will discuss with the case management. We will follow up and advise accordingly. So far, the patient is willing to go to subacute rehab. Should you have any questions, give me a call back. Thank you very much for letting me to participate in the care of your patient. Savanah Galarza MD [facility] # [phone] ZAINA
--- NOTE | 2018-11-10 22:52 | CP.PCM.PCO ---
Addendum Addendum: Resident radiation therapy technician paged by RN regarding patient being agitated, wanting to get out of bed, and is throwing objects around room. Neuro, psych and medicine notes reviewed. Patient had received Seroquel and 0.5mg Ativan with no improvement. Will increase Ativan dose but decrease frequency at this time and continue to monitor. -Lars Elizabeth PGY2
[2018-11-11 06:38] LABS: BASO # 0.06 K/mm3 (0.0-2.0); BASO % 0.7 % (0.0-3.0); EOS # 0.4 (0.0-0.7); HEMOGLOBIN 12.1 g/dL (14.0-18.0); LYMPH # 2.3 (1.2-3.4); LYMPH % 26.1 % (22.0-35.0); MEAN CELL VOLUME 85.4 fl (80.0-105.0); MEAN CORPUSCULAR HEMOGLOBIN 27.3 pg (25.0-35.0); MEAN CORPUSCULAR HGB CONC 31.9 g/dl (31.0-37.0); MEAN PLATELET VOLUME 9.7 fl (7.0-11.0); MONO # 0.7 (0.1-0.6); MONO % 8.1 % (1.0-6.0); RBC 4.44 10^6/uL (3.5-6.1); RED CELL DISTRIBUTION WIDTH 15.9 % (11.5-14.5); WHITE BLOOD COUNT 8.7 10^3/uL (4.5-11.0)
[2018-11-11 06:56] LABS: ALB/GLOB RATIO 1.3 (1.1-1.8); ALBUMIN 4.1 g/dL (3.0-4.8); ALT/SGPT 24 U/L (7-56); AST/SGOT 32 U/L (17-59); BLOOD UREA NITROGEN 10 mg/dL (7-21); CALCIUM 9.6 mg/dL (8.4-10.5); GFR NON-AFRICAN AMERICAN > 60
--- NOTE | 2018-11-11 08:10 | CP.PCM.PN ---
<Leydi García - Last Filed: 11/11/18 16:24> Subjective - Date & Time of Evaluation Date of Evaluation: 11/11/18 Time of Evaluation: 09:00 - Subjective Subjective: Neurology Progress Note Patient seen and examined at bedside. Patient was again noted to be agitated overnight, however he is no longer on 1:1 sitter. Patient state that he is sleepy, denies any complaints. further 12 point ROS unremarkable at this time. Objective - Vital Signs/Intake and Output Vital Signs (last 24 hours): Temp Pulse Resp BP Pulse Ox 97.9 F 84 20 141/77 98 11/10/18 17:02 11/11/18 06:00 11/10/18 17:02 11/10/18 17:58 11/10/18 17:02 Intake and Output: 11/11/18 11/11/18 06:59 18:59 Intake Total 240 Balance 240 - Medications Medications: Current Medications Acetaminophen (Tylenol 325mg Tab) 650 mg PO Q6H PRN PRN Reason: Pain, moderate (4-7) Last Admin: 11/10/18 14:30 Dose: 650 mg Alprazolam (Xanax) 0.25 mg PO BID [facility]; Protocol Stop: 11/16/18 18:01 Last Admin: 11/10/18 17:57 Dose: 0.25 mg Alprazolam (Xanax) 0.25 mg PO HS [facility]; Protocol Last Admin: 11/11/18 01:38 Dose: 0.25 mg Aspirin (Aspirin Chewable) 81 mg PO DAILY [facility] Last Admin: 11/10/18 10:28 Dose: 81 mg Atorvastatin Calcium (Lipitor) 40 mg PO DIN [facility] Last Admin: 11/10/18 18:00 Dose: 40 mg Clopidogrel Bisulfate (Plavix) 75 mg PO DAILY [facility] Last Admin: 11/10/18 10:26 Dose: 75 mg Dextrose (Dextrose 50% Inj) 0 ml IV STAT PRN; Protocol PRN Reason: Hypoglycemia Protocol Famotidine (Pepcid) 20 mg PO Q12 [facility] Last Admin: 11/10/18 22:45 Dose: Not Given Dextrose (Dextrose 5% In Water 1000 Ml) 1,000 mls @ 0 mls/hr IV .Q0M PRN; Protocol PRN Reason: Hypoglycemia Protocol Insulin Human Lispro (Humalog Med) 0 units SC [facility]; Protocol Last Admin: 11/10/18 18:01 Dose: 1 units Lorazepam (Ativan) 2 mg IVP Q6H PRN; Protocol PRN Reason: Agitation Last Admin: 11/10/18 23:07 Dose: 2 mg Metoprolol Tartrate (Lopressor) 12.5 mg PO 0800,1800 [facility] Last Admin: 11/10/18 17:58 Dose: 12.5 mg Mupirocin (Bactroban Ointment) 0 gm TOP BID [facility] Last Admin: 11/10/18 18:02 Dose: 1 applic Nicotine (Nicoderm Cq) 1 patch TD DAILY [facility] Last Admin: 11/10/18 10:24 Dose: 1 patch Quetiapine Fumarate (Seroquel) 25 mg PO DAILY@0900 [facility]; Protocol Quetiapine Fumarate (Seroquel) 75 mg PO DAILY@1900 [facility]; Protocol Last Admin: 11/10/18 21:10 Dose: 75 mg - Labs Labs: 11/11/18 06:20 11/11/18 06:20 PT 12.7 SECONDS (9.4-12.5) H 11/02/18 13:38 INR 1.12 11/02/18 13:38 APTT 39.3 Seconds (26.9-38.3) H 11/02/18 13:38 - Additional Findings Additional findings: - Constitutional Appears: No Acute Distress, - Head Exam Head Exam: ATRAUMATIC, NORMOCEPHALIC - Eye Exam Eye Exam: EOMI, Normal appearance, PERRL. absent: Conjunctival injection, Periorbital swelling, Periorbital tenderness, Scleral icterus Pupil Exam: NORMAL ACCOMODATION, PERRL. - ENT Exam ENT Exam: Mucous Membranes Moist - Neck Exam Neck exam: Positive for: Full Rom - Respiratory Exam Respiratory Exam: Clear to Auscultation Bilateral, NORMAL BREATHING PATTERN - Cardiovascular Exam Cardiovascular Exam: REGULAR RHYTHM - GI/Abdominal Exam GI & Abdominal Exam: Normal Bowel Sounds, Soft. absent: Tenderness - Neurological Exam Neurological exam: Alert, CN II-XII Intact, Oriented x3, Reflexes Normal - Expanded Neurological Exam Expanded Patient oriented to: person, place, time Cranial nerves: EOM's Intact: Normal, Facial Palsey w/Forehead Movement: Normal, Facial Palsey w/o Forehead Movement: Normal, Tongue Deviation: Normal Upper motor neuron: Silvestre Neglect: Normal, Pronator Drift: Normal Neuro motor strength exam: Left Upper Extremity: 3, Right Upper Extremity: 4, Left Lower Extremity: 3, Right Lower Extremity: 4 Coma Scale Eye Opening: SPONTANEOUS Coma Scale Motor Response: OBEYS COMMANDS Coma Scale Verbal: Oriented Coma Scale Total: 15 - Psychiatric Exam Psychiatric exam: Normal Affect, Normal Mood - Skin Skin Exam: Dry, Intact, Normal Color, Warm Assessment and Plan - Assessment and Plan (Free Text) Assessment: 53 year old male with a pmh of 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 Plan: -MRI Brain (11/01) showed subacute to chronic ischemic infarction involving the right frontal, temporal and parietal lobes with accompanying hemorrhagic component, associated vasogenic edema, and hemosiderin ring -CT Head (11/05) showed no interval changes in right MCA infarct -CT Head (11/04) showed no interval changes in right MCA infarct -CT Head (11/03) showed no interval changes in right MCA infarct -CTA Head/Neck (11/02) showed critical stenosis of right ICA, >75% stenosis of left ICA, and moderate to severe multifocal stenosis of the cavernous and supraclinoid segments of right ICA -Continue ASA and Plavix -Continue PT, recommend acute rehab -Neurosurgery consulted, Dr. Martinez, no neurosurgical interventions indicated at this time -Neurointerventionalist consulted, Dr. Cruz, recommends observation at this time -patient continues to be agitated at night, continue seroquel to 25mg in the morning and will change evening dose to 6:30pm. -Further recommendations as per Dr. Agudelo case discussed with attending, Dr. Agudelo <Dejan Agudelo - Last Filed: 11/13/18 23:13> Objective - Vital Signs/Intake and Output Vital Signs (last 24 hours): Temp Pulse Resp BP Pulse Ox 97.3 F L 109 H 19 140/91 H 98 11/13/18 20:43 11/13/18 20:43 11/13/18 20:43 11/13/18 20:43 11/13/18 20:43 - Medications Medications: Current Medications Acetaminophen (Tylenol 325mg Tab) 650 mg PO Q6H PRN PRN Reason: Pain, moderate (4-7) Last Admin: 11/13/18 17:48 Dose: 650 mg Acetaminophen (Tylenol 325 Mg Supp) 325 mg RC Q6H PRN PRN Reason: Fever >100.4 F Alprazolam (Xanax) 0.5 mg PO BID [facility]; Protocol Stop: 11/16/18 18:01 Last Admin: 11/13/18 18:05 Dose: 0.5 mg Aspirin (Aspirin Chewable) 81 mg PO DAILY [facility] Last Admin: 11/13/18 11:43 Dose: Not Given Atorvastatin Calcium (Lipitor) 40 mg PO DIN [facility] Last Admin: 11/13/18 17:53 Dose: 40 mg Clopidogrel Bisulfate (Plavix) 75 mg PO DAILY [facility] Last Admin: 11/13/18 15:27 Dose: 75 mg Dextrose (Dextrose 50% Inj) 0 ml IV STAT PRN; Protocol PRN Reason: Hypoglycemia Protocol Famotidine (Pepcid) 20 mg PO Q12 [facility] Last Admin: 11/13/18 21:55 Dose: 20 mg Dextrose (Dextrose 5% In Water 1000 Ml) 1,000 mls @ 0 mls/hr IV .Q0M PRN; Protocol PRN Reason: Hypoglycemia Protocol Vancomycin HCl (Vancomycin 1gm) 1 gm in 250 mls @ 167 mls/hr IVPB Q12H [facility]; Protocol Stop: 11/22/18 18:46 Last Admin: 11/13/18 20:04 Dose: 167 mls/hr Cefepime HCl (Maxipime 1gm) 1 gm in 100 mls @ 100 mls/hr IVPB Q8 [facility]; Protocol Stop: 11/22/18 22:01 Last Admin: 11/13/18 21:55 Dose: 100 mls/hr Insulin Human Lispro (Humalog Med) 0 units SC [facility]; Protocol Last Admin: 11/13/18 17:53 Dose: 3 units Lorazepam (Ativan) 2 mg IVP Q6H PRN; Protocol PRN Reason: Agitation Last Admin: 11/13/18 18:36 Dose: 2 mg Metoprolol Tartrate (Lopressor) 25 mg PO BRKDIN [facility] Last Admin: 11/13/18 17:52 Dose: 25 mg Mupirocin (Bactroban Ointment) 0 gm TOP BID [facility] Last Admin: 11/13/18 17:46 Dose: 1 applic Nicotine (Nicoderm Cq) 1 patch TD DAILY [facility] Last Admin: 11/13/18 11:45 Dose: 1 patch Vitamin A (Vitamin A & D Oint Ud Foilpak) 1 ea TOP BID [facility] Last Admin: 11/13/18 17:52 Dose: Not Given Ziprasidone (Geodon Cap) 20 mg PO HS [facility]; Protocol Last Admin: 11/13/18 21:56 Dose: 20 mg Ziprasidone (Geodon Cap) 20 mg PO DAILY [facility]; Protocol Zolpidem Tartrate (Ambien) 5 mg PO HS [facility]; Protocol Last Admin: 11/13/18 21:56 Dose: 5 mg - Labs Labs: 11/13/18 05:50 11/13/18 05:50 PT 12.7 SECONDS (9.4-12.5) H 11/02/18 13:38 INR 1.12 11/02/18 13:38 APTT 39.3 Seconds (26.9-38.3) H 11/02/18 13:38 Assessment and Plan - Assessment and Plan (Free Text) Assessment: is a gentleman who has had multiple strokes, and 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 He is now sundowning and we will attempt to use seroquel. I examined the patient independently and agree with the above assessment and plan. Dr. Agudelo Neurology
[2018-11-11] MEDS: Insulin Lispro (humaLOG) MEDIUM Coverage SC SCH ×4 (08:32→21:39)
[2018-11-11] MEDS: Mupirocin 2% Ointment 15 GM TUBE TOP SCH ×2 (10:15→17:48)
--- NOTE | 2018-11-11 13:04 | CP.PCM.PN ---
Subjective - Date & Time of Evaluation Date of Evaluation: 11/11/18 Time of Evaluation: 13:04 - Subjective Subjective: PGY-2 Code Star note Was called for code star on 53 M with past medical history of ischemic stroke. Per nursing, patient was found on the floor, with unwitnessed fall. Patient was assessed at the time and it was noted that patient had no cervical injury and was freely moving his neck and head. At this time, it was determined that he could be safely moved to his bed. We tried getting an appropriate history from the patient but he was uncooperative. CT Head was obtained to rule out acute bleed, which showed no acute changes. Plan - CT Head negative for bleeding; continue to monitor patient - Wrist restraints as necessary Objective - Vital Signs/Intake and Output Vital Signs (last 24 hours): Temp Pulse Resp BP Pulse Ox 97.8 F 81 20 164/86 H 95 11/11/18 08:19 11/11/18 08:19 11/11/18 08:19 11/11/18 08:19 11/11/18 08:19 Intake and Output: 11/11/18 11/11/18 06:59 18:59 Intake Total 240 Balance 240 - Medications Medications: Current Medications Acetaminophen (Tylenol 325mg Tab) 650 mg PO Q6H PRN PRN Reason: Pain, moderate (4-7) Last Admin: 11/10/18 14:30 Dose: 650 mg Alprazolam (Xanax) 0.25 mg PO BID [facility]; Protocol Stop: 11/16/18 18:01 Last Admin: 11/11/18 10:11 Dose: 0.25 mg Alprazolam (Xanax) 0.25 mg PO HS [facility]; Protocol Last Admin: 11/11/18 01:38 Dose: 0.25 mg Aspirin (Aspirin Chewable) 81 mg PO DAILY [facility] Last Admin: 11/11/18 10:11 Dose: 81 mg Atorvastatin Calcium (Lipitor) 40 mg PO DIN [facility] Last Admin: 11/10/18 18:00 Dose: 40 mg Clopidogrel Bisulfate (Plavix) 75 mg PO DAILY [facility] Last Admin: 11/11/18 10:11 Dose: 75 mg Dextrose (Dextrose 50% Inj) 0 ml IV STAT PRN; Protocol PRN Reason: Hypoglycemia Protocol Famotidine (Pepcid) 20 mg PO Q12 [facility] Last Admin: 11/11/18 10:11 Dose: 20 mg Dextrose (Dextrose 5% In Water 1000 Ml) 1,000 mls @ 0 mls/hr IV .Q0M PRN; Protocol PRN Reason: Hypoglycemia Protocol Insulin Human Lispro (Humalog Med) 0 units SC ACHS [facility]; Protocol Last Admin: 11/11/18 08:32 Dose: Not Given Lorazepam (Ativan) 2 mg IVP Q6H PRN; Protocol PRN Reason: Agitation Last Admin: 11/11/18 11:56 Dose: 2 mg Metoprolol Tartrate (Lopressor) 25 mg PO BRKDIN [facility] Mupirocin (Bactroban Ointment) 0 gm TOP BID [facility] Last Admin: 11/11/18 10:15 Dose: 1 applic Nicotine (Nicoderm Cq) 1 patch TD DAILY [facility] Last Admin: 11/11/18 10:10 Dose: 1 patch Quetiapine Fumarate (Seroquel) 25 mg PO DAILY@0900 [facility]; Protocol Last Admin: 11/11/18 10:11 Dose: 25 mg Quetiapine Fumarate (Seroquel) 75 mg PO DAILY@1900 [facility]; Protocol Last Admin: 11/10/18 21:10 Dose: 75 mg - Labs Labs: 11/11/18 06:20 11/11/18 06:20 PT 12.7 SECONDS (9.4-12.5) H 11/02/18 13:38 INR 1.12 11/02/18 13:38 APTT 39.3 Seconds (26.9-38.3) H 11/02/18 13:38
--- NOTE | 2018-11-11 14:08 | CT ---
Date of service: 11/11/2018 PROCEDURE: CT HEAD WITHOUT CONTRAST. HISTORY: s/p fall COMPARISON: 11/05/2018 TECHNIQUE: Axial computed tomography images were obtained through the head/brain without intravenous contrast. Radiation dose: Total exam DLP = 908.6 mGy-cm. This CT exam was performed using one or more of the following dose reduction techniques: Automated exposure control, adjustment of the mA and/or kV according to patient size, and/or use of iterative reconstruction technique. FINDINGS: HEMORRHAGE: No intracranial hemorrhage. BRAIN: No mass effect or edema. There is a large area of encephalomalacia in the right frontal lobe and parietal lobe. This is unchanged. There are no acute changes. VENTRICLES: Unremarkable. No hydrocephalus. CALVARIUM: Unremarkable. PARANASAL SINUSES: Unremarkable as visualized. No significant inflammatory changes. MASTOID AIR CELLS: Unremarkable as visualized. No inflammatory changes. OTHER FINDINGS: None. IMPRESSION: There is a large area of encephalomalacia in the right frontal lobe and parietal lobe. This is unchanged. There are no acute changes.
--- NOTE | 2018-11-11 17:15 | CP.PCM.PN ---
<Ha Alexandra - Last Filed: 11/11/18 21:01> Subjective - Date & Time of Evaluation Date of Evaluation: 11/11/18 Time of Evaluation: 10:00 - Subjective Subjective: Ha Alexandra, PGY-1 Medicine Progress Note for Dr. Santana: Pt was seen and examined this AM at bedside. Pt was somnolent in the AM but he denied any visual hallucinations. Pt continues to experience bouts of agitation. He states that he is having no further headaches and there are no further neurologic deficits as pt can move R UE and R LE spontaneously. Pt was agitated again overnight. He has no other acute complaints at this time. He will be re- evaled by psych later today. At this time pt has no SI/HI. 1:1 d/ariane per psych yesterday. Objective - Vital Signs/Intake and Output Vital Signs (last 24 hours): Temp Pulse Resp BP Pulse Ox 97.8 F 70 20 164/86 H 95 11/11/18 08:19 11/11/18 10:00 11/11/18 08:19 11/11/18 08:19 11/11/18 08:19 Intake and Output: 11/11/18 11/11/18 06:59 18:59 Intake Total 240 Output Total 0 Balance 240 - Medications Medications: Current Medications Acetaminophen (Tylenol 325mg Tab) 650 mg PO Q6H PRN PRN Reason: Pain, moderate (4-7) Last Admin: 11/10/18 14:30 Dose: 650 mg Alprazolam (Xanax) 0.5 mg PO BID [facility]; Protocol Stop: 11/16/18 18:01 Aspirin (Aspirin Chewable) 81 mg PO DAILY [facility] Last Admin: 11/11/18 10:11 Dose: 81 mg Atorvastatin Calcium (Lipitor) 40 mg PO DIN [facility] Last Admin: 11/10/18 18:00 Dose: 40 mg Clopidogrel Bisulfate (Plavix) 75 mg PO DAILY [facility] Last Admin: 11/11/18 10:11 Dose: 75 mg Dextrose (Dextrose 50% Inj) 0 ml IV STAT PRN; Protocol PRN Reason: Hypoglycemia Protocol Famotidine (Pepcid) 20 mg PO Q12 [facility] Last Admin: 11/11/18 10:11 Dose: 20 mg Dextrose (Dextrose 5% In Water 1000 Ml) 1,000 mls @ 0 mls/hr IV .Q0M PRN; Protocol PRN Reason: Hypoglycemia Protocol Insulin Human Lispro (Humalog Med) 0 units SC ACHS [facility]; Protocol Last Admin: 11/11/18 13:11 Dose: Not Given Lorazepam (Ativan) 2 mg IVP Q6H PRN; Protocol PRN Reason: Agitation Last Admin: 11/11/18 11:56 Dose: 2 mg Metoprolol Tartrate (Lopressor) 25 mg PO BRKDIN [facility] Mupirocin (Bactroban Ointment) 0 gm TOP BID [facility] Last Admin: 11/11/18 10:15 Dose: 1 applic Nicotine (Nicoderm Cq) 1 patch TD DAILY [facility] Last Admin: 11/11/18 10:10 Dose: 1 patch Quetiapine Fumarate (Seroquel) 25 mg PO DAILY@0900 [facility]; Protocol Last Admin: 11/11/18 10:11 Dose: 25 mg Quetiapine Fumarate (Seroquel) 75 mg PO DAILY [facility]; Protocol Zolpidem Tartrate (Ambien) 5 mg PO HS [facility]; Protocol - Labs Labs: 11/11/18 06:20 11/11/18 06:20 PT 12.7 SECONDS (9.4-12.5) H 11/02/18 13:38 INR 1.12 11/02/18 13:38 APTT 39.3 Seconds (26.9-38.3) H 11/02/18 13:38 - Constitutional Appears: No Acute Distress, Agitated - Head Exam Additional comments: Pt has L sided facial droop and is unable to puff out cheeks on L side. - Eye Exam Eye Exam: EOMI, Normal appearance, PERRL - Respiratory Exam Respiratory Exam: Clear to Ausculation Bilateral, NORMAL BREATHING PATTERN. ab sent: Accessory Muscle Use, Prolonged Expiratory Phase, Rales, Rhonchi, Wheezes - Cardiovascular Exam Cardiovascular Exam: RRR, +S1, +S2. absent: Gallop, Rubs - GI/Abdominal Exam GI & Abdominal Exam: Soft, Normal Bowel Sounds. absent: Firm, Guarding, Rigid, Tenderness - Neurological Exam Neurological Exam: Alert, Awake, Oriented x3 Neuro motor strength exam: Left Upper Extremity: 0, Right Upper Extremity: 5, Left Lower Extremity: 0, Right Lower Extremity: 5 Additional comments: Cranial nerves: EOM's Intact: Normal, Tongue Deviation: Normal Sensory exam: Lower Extremity 2 Point Discrimination: Abnormal Left, Lower Extremity Light Touch: Abnormal Left, Lower Extremity Pin Prick: Abnormal Left, Lower Extremity Temperature: Abnormal Left, Upper Extremity 2 Point Discrimina tion: Abnormal Left, Upper Extremity Light Touch: Abnormal Left, Upper Extremity Pin Prick: Abnormal Left, Upper Extremity Temperature: Abnormal Left Coma Scale Eye Opening: SPONTANEOUS Coma Scale Motor Response: OBEYS COMMANDS Coma Scale Verbal: Oriented Coma Scale Total: 15 - Psychiatric Exam Psychiatric exam: Normal Affect, Normal Mood - Skin Skin Exam: Dry, Normal Color, Warm Assessment and Plan - Assessment and Plan (Free Text) Assessment: Pt is a 53 yo M with pmhx of HTN, DM, HLD and ischemic CVA (07/22) who presented from psych floor for hemorrhagic stroke. MRI 11/01/18: Subacute to chronic involving R temporal and frontal parietal ischemic infarct with hemorrhagic component. Associated residual vasogenic edema. Hemosiderin ring present. Head and neck CT: 1. Critical stenosis origin R ICA. Greater than 75% stenosis origin L ICA. 2. Mod-severe multifocal stenosis R ICA cavernous and supreclinoid segment. No sig stenosis L cavernous and intracranial ICA. 3. Slight increase in stenosis of R M1 MCA. CT head 11/03: No change in large MCA distribution infarct, No evidence of midline shift. CT head:11/05 showed no signs of acute hemorrhage. Pt transferred out of ICU and on to floors. Pt is awaiting acceptance to Acute rehab per PT recs. Pt accepted to [facility], will await 24 hours without need for 1:1. 1:1 d/ariane per psych. Plan: 1) Hemorrhagic stroke: - Pt transferred out of ICU to floors. - MRI 11/01/18: Subacute to chronic involving R temporal and frontal parietal ischemic infarct with hemorrhagic component. Associated residual vasogenic edema. Hemosiderin ring present. - Head and neck CT:11/02/18: 1. Critical stenosis origin R ICA. Greater than 75% stenosis origin L ICA. 2. Mod-severe multifocal stenosis R ICA cavernous and supreclinoid segment. No sig stenosis L cavernous and intracranial ICA. 3. Slight increase in stenosis of R M1 MCA. please refer to full report for additional details - CT head 11/03: No change in large MCA distribution infarct, No evidence of midline shift. - CT Head 11/05: No acute intracranial hemorrhage. Re-demonstration of large chronic R MCA territory infarct - Please refer to full report for details - Lipid Panel - Cholesterol - 164, LDL - 71, HDL - 35, T - Asa, plavix - Cont per neuro - Cont statin - Aspiration precautions - High fall risk - OOB w/ assistance - Head of bed elevation 30 - Neuro Q4 - VS Q4 - Neuro consult - Dr. Agudelo - Seroquel 25mg AM and 75mg QHS - Neurosurg Consult - Dr. Martinez - No neurosurgical intervention at this time - Neurointerventionalist consult - Dr. Cruz - No acute intervention at this ti me. - Psych Consult - Dr. Pavon - Ativan .5 PRN for agitation, Ambien 5mg qhs - PT eval - Acute rehab 2) Hx of DM: - ISS - Medium - Finger sticks QACHS - Hypoglycemia protocol ordered PRN 3) Hx of HTN: - Cont home metoprolol 25mg QHS - Q4 vital signs 4) Hx of HLD: - Cont lipitor 40qd 5) Hx of tobacco abuse: - Nicotine Patch PPx: GI: Pepcid DVT: SCDs Dispo: Pt accepted to [facility]. Pt and GF are in agreement with plan. 1:1 D/ariane earlier today, will await 24 hour period of no 1:1 prior to d/c. Case seen and discussed with Dr. Esther Alexandra, PGY-1 <Sam Santana - Last Filed: 11/25/18 17:25> Objective - Vital Signs/Intake and Output Vital Signs (last 24 hours): Temp Pulse Resp BP Pulse Ox 97.8 F 90 20 113/86 96 11/25/18 08:17 11/25/18 08:38 11/25/18 08:17 11/25/18 08:38 11/25/18 08:17 Intake and Output: 11/25/18 11/25/18 06:59 18:59 Intake Total 560 250 Balance 560 250 - Medications Medications: Current Medications Acetaminophen (Tylenol 325mg Tab) 650 mg PO Q6H PRN PRN Reason: Pain, moderate (4-7) Last Admin: 11/25/18 08:50 Dose: 650 mg Acetaminophen (Tylenol 325 Mg Supp) 325 mg RC Q6H PRN PRN Reason: Fever >100.4 F Aspirin (Aspirin Chewable) 81 mg PO DAILY [facility] Last Admin: 11/25/18 09:09 Dose: 81 mg Atorvastatin Calcium (Lipitor) 40 mg PO DIN [facility] Last Admin: 11/24/18 17:06 Dose: 40 mg Clopidogrel Bisulfate (Plavix) 75 mg PO DAILY [facility] Last Admin: 11/25/18 09:08 Dose: 75 mg Dextrose (Dextrose 50% Inj) 0 ml IV STAT PRN; Protocol PRN Reason: Hypoglycemia Protocol Famotidine (Pepcid) 20 mg PO Q12 [facility] Last Admin: 11/25/18 09:09 Dose: 20 mg Dextrose (Dextrose 5% In Water 1000 Ml) 1,000 mls @ 0 mls/hr IV .Q0M PRN; Protocol PRN Reason: Hypoglycemia Protocol Vancomycin HCl (Vancomycin 1gm) 1 gm in 250 mls @ 167 mls/hr IVPB Q12H [facility]; Protocol Last Admin: 11/25/18 10:00 Dose: 167 mls/hr Insulin Human Regular (Humulin R High) 0 units SC ACHS [facility]; Protocol Last Admin: 11/25/18 13:06 Dose: 2 units Lorazepam (Ativan) 2 mg IVP Q6H PRN; Protocol PRN Reason: Agitation Last Admin: 11/25/18 11:24 Dose: 2 mg Metoprolol Tartrate (Lopressor) 25 mg PO BRKDIN [facility] Last Admin: 11/25/18 08:38 Dose: 25 mg Mupirocin (Bactroban Ointment) 0 gm NS BID [facility] Stop: 11/27/18 18:01 Last Admin: 11/25/18 09:18 Dose: 1 applic Nicotine (Nicoderm Cq) 1 patch TD DAILY [facility] Last Admin: 11/25/18 09:10 Dose: 1 patch Vitamin A (Vitamin A & D Oint Ud Foilpak) 1 ea TOP BID [facility] Last Admin: 11/25/18 09:10 Dose: 1 ea Ziprasidone (Geodon Cap) 20 mg PO HS [facility]; Protocol Last Admin: 11/24/18 21:39 Dose: 20 mg Ziprasidone (Geodon Cap) 20 mg PO DAILY [facility]; Protocol Last Admin: 11/25/18 09:11 Dose: 20 mg Zolpidem Tartrate (Ambien) 10 mg PO HS [facility]; Protocol Last Admin: 11/24/18 21:39 Dose: 10 mg - Labs Labs: 11/23/18 06:20 11/23/18 06:20 PT 12.7 SECONDS (9.4-12.5) H 11/02/18 13:38 INR 1.12 11/02/18 13:38 APTT 39.3 Seconds (26.9-38.3) H 11/02/18 13:38 Attending/Attestation - Attestation I have personally seen and examined this patient.: Yes I have fully participated in the care of the patient.: Yes I have reviewed all pertinent clinical information, including history, physical exam and plan: Yes Notes (Text): 11/25/18 17:24 53 year old male with past medical history of hypertension, diabetes, and CVA (07/2018) who was initially admitted under psychiatric unit for depression. He was transferred to medical floor for +MRI findings showing subacute to chronic ischemic infarction involving the right frontal, temporal and parietal lobes with accompanying hemorrhagic component. CTA head/neck showed critical stenosis of right ICA, >75% stenosis of left ICA and moderate to severe multifocal stenosis of the cavernous and supraclinoid segments of right ICA. He was initially transferred to ICU for close ICU monitoring. Patient was evaluated by Neurosurgery and felt these MRI finding are chronic, no acute intervention is needed. Patient is on aspirin, plavix and statin. Vascular surgery recommended outpatient follow up. Psychiatry is following.
--- NOTE | 2018-11-11 20:28 | PN ---
DATE: 11/11/2018 FOLLOWUP NOTE SUBJECTIVE: The patient is 53 years old with reported history of stroke, status post stroke, major depressive disorder and hallucinations for the past months. The patient is staying in the hospital. The patient was found to have new stroke while being in the psychiatric inpatient unit and was transferred to the medical side. This filing writer is following the patient for periods of agitation, hallucinations and delirium. The patient was seen today. The patient had rough night and had some aggressive behavior and needed to be medicated and during this, the filing writer found the patient was deeply sleeping. This filing writer was not able to wake the patient, but the patient does not have any respiratory distress. The patient is breathing and sleeping peacefully. As per report overnight, the patient was agitated, trying to pull IV line, trying to climb off the bed and required to have medications. This filing writer reviewed labs, medications as well as collaterals were obtained from the nursing staff. As per nursing staff, Seroquel was not given yesterday at 5 o'clock. Medical team wants to continue Seroquel 75 mg at 5 o'clock and 25 mg at the morning time. PHYSICAL EXAMINATION: VITAL SIGNS: Temperature 97.8, pulse is 84, blood pressure 164/86, respiration 20, oxygen saturation is 95%. MEDICATIONS: Reviewed. Xanax 0.5 mg will be increased today twice a day, aspirin, Lipitor, Plavix, dextrose, Pepcid, Humalog, Ativan 2 mg IV push every 6 hours as needed, Lopressor, Bactroban, NicoDerm, Seroquel 25 mg daily and 75 mg at 5 o'clock. This filing writer will implement Ambien for insomnia. LABORATORY DATA: Reviewed. MENTAL STATUS EXAMINATION: This filing writer was not able to assess because the patient is status post medications and deeply sleeping but based on report, the patient has periods of agitation and hallucinations. IMPRESSION: The patient is obviously in delirium stage which is related to multiple medical issues and stroke. PLAN: Seroquel will be continued. Xanax was increased. Ambien added. We will follow up on this patient every other day. Possible mood stabilizer such as Depakote might be helpful, but this is up to the medical and neurology team. Meanwhile, next followup will be over the weekend. Thank you very much for letting me to participate in the care of your patient. Savanah Galarza MD
[2018-11-12 06:43] LABS: BASO # 0.06 K/mm3 (0.0-2.0); BASO % 0.6 % (0.0-3.0); EOS # 0.5 (0.0-0.7); EOS % 4.4 % (1.5-5.0); HEMOGLOBIN 12.9 g/dL (14.0-18.0); LYMPH # 1.5 (1.2-3.4); LYMPH % 14.8 % (22.0-35.0); MEAN CELL VOLUME 85.7 fl (80.0-105.0); MEAN CORPUSCULAR HGB CONC 31.5 g/dl (31.0-37.0); MEAN PLATELET VOLUME 9.5 fl (7.0-11.0); MONO # 1.4 (0.1-0.6); MONO % 13.4 % (1.0-6.0); RBC 4.77 10^6/uL (3.5-6.1); RED CELL DISTRIBUTION WIDTH 15.6 % (11.5-14.5); WHITE BLOOD COUNT 10.3 10^3/uL (4.5-11.0)
[2018-11-12 07:09] LABS: ALB/GLOB RATIO 1.2 (1.1-1.8); ALBUMIN 3.9 g/dL (3.0-4.8); ALT/SGPT 23 U/L (7-56); AST/SGOT 20 U/L (17-59); BLOOD UREA NITROGEN 11 mg/dL (7-21); CALCIUM 9.4 mg/dL (8.4-10.5); GFR NON-AFRICAN AMERICAN > 60
--- NOTE | 2018-11-12 09:09 | CP.PCM.PN ---
Subjective - Date & Time of Evaluation Date of Evaluation: 11/12/18 Time of Evaluation: 09:06 - Subjective Subjective: Neurology Progress Note: Patient seen and assessed at bedside. Patient noted to again to be agitated overnight. Patient currently resting comfortably without complaints. Further 12 point ROS unremarkable. Objective - Vital Signs/Intake and Output Vital Signs (last 24 hours): Temp Pulse Resp BP Pulse Ox 97.5 F L 84 20 140/87 96 11/12/18 06:00 11/12/18 06:00 11/12/18 06:00 11/12/18 06:00 11/12/18 06:00 - Medications Medications: Current Medications Acetaminophen (Tylenol 325mg Tab) 650 mg PO Q6H PRN PRN Reason: Pain, moderate (4-7) Last Admin: 11/10/18 14:30 Dose: 650 mg Alprazolam (Xanax) 0.5 mg PO BID [facility]; Protocol Stop: 11/16/18 18:01 Last Admin: 11/11/18 17:44 Dose: 0.5 mg Aspirin (Aspirin Chewable) 81 mg PO DAILY [facility] Last Admin: 11/11/18 10:11 Dose: 81 mg Atorvastatin Calcium (Lipitor) 40 mg PO DIN [facility] Last Admin: 11/11/18 17:45 Dose: 40 mg Clopidogrel Bisulfate (Plavix) 75 mg PO DAILY [facility] Last Admin: 11/11/18 10:11 Dose: 75 mg Dextrose (Dextrose 50% Inj) 0 ml IV STAT PRN; Protocol PRN Reason: Hypoglycemia Protocol Famotidine (Pepcid) 20 mg PO Q12 [facility] Last Admin: 11/11/18 21:36 Dose: 20 mg Dextrose (Dextrose 5% In Water 1000 Ml) 1,000 mls @ 0 mls/hr IV .Q0M PRN; Protocol PRN Reason: Hypoglycemia Protocol Insulin Human Lispro (Humalog Med) 0 units SC ACHS [facility]; Protocol Last Admin: 11/11/18 21:39 Dose: Not Given Lorazepam (Ativan) 2 mg IVP Q6H PRN; Protocol PRN Reason: Agitation Last Admin: 11/11/18 20:17 Dose: 2 mg Metoprolol Tartrate (Lopressor) 25 mg PO BRKDIN [facility] Last Admin: 11/11/18 17:45 Dose: 25 mg Mupirocin (Bactroban Ointment) 0 gm TOP BID [facility] Last Admin: 11/11/18 17:48 Dose: 1 applic Nicotine (Nicoderm Cq) 1 patch TD DAILY [facility] Last Admin: 11/11/18 10:10 Dose: 1 patch Quetiapine Fumarate (Seroquel) 25 mg PO DAILY@0900 [facility]; Protocol Last Admin: 11/11/18 10:11 Dose: 25 mg Quetiapine Fumarate (Seroquel) 75 mg PO 1830 [facility]; Protocol Zolpidem Tartrate (Ambien) 5 mg PO HS [facility]; Protocol Last Admin: 11/11/18 23:11 Dose: 5 mg - Labs Labs: 11/12/18 06:30 11/12/18 06:30 PT 12.7 SECONDS (9.4-12.5) H 11/02/18 13:38 INR 1.12 11/02/18 13:38 APTT 39.3 Seconds (26.9-38.3) H 11/02/18 13:38 - Additional Findings Additional findings: - Constitutional Appears: No Acute Distress, - Head Exam Head Exam: ATRAUMATIC, NORMOCEPHALIC - Eye Exam Eye Exam: EOMI, Normal appearance, PERRL. absent: Conjunctival injection, Periorbital swelling, Periorbital tenderness, Scleral icterus Pupil Exam: NORMAL ACCOMODATION, PERRL. - ENT Exam ENT Exam: Mucous Membranes Moist - Neck Exam Neck exam: Positive for: Full Rom - Respiratory Exam Respiratory Exam: Clear to Auscultation Bilateral, NORMAL BREATHING PATTERN - Cardiovascular Exam Cardiovascular Exam: REGULAR RHYTHM - GI/Abdominal Exam GI & Abdominal Exam: Normal Bowel Sounds, Soft. absent: Tenderness - Neurological Exam Neurological exam: Alert, CN II-XII Intact, Oriented x3, Reflexes Normal - Expanded Neurological Exam Expanded Patient oriented to: person, place, time Cranial nerves: EOM's Intact: Normal, Facial Palsey w/Forehead Movement: Normal, Facial Palsey w/o Forehead Movement: Normal, Tongue Deviation: Normal Upper motor neuron: Silvestre Neglect: Normal, Pronator Drift: Normal Neuro motor strength exam: Left Upper Extremity: 3, Right Upper Extremity: 4, Left Lower Extremity: 3, Right Lower Extremity: 4 Coma Scale Eye Opening: SPONTANEOUS Coma Scale Motor Response: OBEYS COMMANDS Coma Scale Verbal: Oriented Coma Scale Total: 15 - Psychiatric Exam Psychiatric exam: Normal Affect, Normal Mood - Skin Skin Exam: Dry, Intact, Normal Color, Warm Assessment and Plan - Assessment and Plan (Free Text) Assessment: 53 year old male with a past medical history significant for 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 Plan: -MRI Brain (11/01) showed subacute to chronic ischemic infarction involving the right frontal, temporal and parietal lobes with accompanying hemorrhagic component, associated vasogenic edema, and hemosiderin ring -CT Head (11/05) showed no interval changes in right MCA infarct -CTA Head/Neck (11/02) showed critical stenosis of right ICA, >75% stenosis of left ICA, and moderate to severe multifocal stenosis of the cavernous and supraclinoid segments of right ICA -Continue ASA and Plavix -Continue PT, recommend acute rehab -Continue Seroquel as scheduled; Noted increase in PM dose by primary team -Neurosurgery consulted, Dr. Martinez; No neurosurgical interventions indicated at this time -Neurointerventionalist consulted, Dr. rCuz; Recommends observation at this time -Further recommendations as per Dr. Agudelo Disposition: No further neurological imaging/interventions are indicated at this time and our team will be signing off of this patient. Please feel free to reconsult as indicated. Patient should follow up with a neurologist as an outpatient once he is discharged from his rehabilitation unit. Patient seen and case discussed with attending, Dr. Agudelo. Bull Turcios PGY2
[2018-11-12] MEDS: Mupirocin 2% Ointment 15 GM TUBE TOP SCH ×2 (09:40→18:46)
[2018-11-12] MEDS: Insulin Lispro (humaLOG) MEDIUM Coverage SC SCH ×4 (10:10→22:10)
--- NOTE | 2018-11-12 14:45 | CP.PCM.PN ---
<Ha Alexandra - Last Filed: 11/12/18 15:40> Subjective - Date & Time of Evaluation Date of Evaluation: 11/12/18 Time of Evaluation: 09:30 - Subjective Subjective: Ha Alexandra, PGY-1 Medicine Progress Note for Dr. Padilla: Pt was seen and examined this AM at bedside. Pt was somnolent in the AM but he denied any visual hallucinations. Pt continues to experience bouts of agitation and delusions. He states that he is having no further headaches and there are no further neurologic deficits as pt can move R UE and R LE spontaneously. Pt was agitated again overnight. He has no other acute complaints at this time. He will be re-evaled by psych later today. At this time pt has no SI/HI. 1:1 d/ariane per psych 11/10. Objective - Vital Signs/Intake and Output Vital Signs (last 24 hours): Temp Pulse Resp BP Pulse Ox 97.5 F L 84 20 140/87 96 11/12/18 06:00 11/12/18 06:00 11/12/18 06:00 11/12/18 06:00 11/12/18 06:00 - Medications Medications: Current Medications Acetaminophen (Tylenol 325mg Tab) 650 mg PO Q6H PRN PRN Reason: Pain, moderate (4-7) Last Admin: 11/10/18 14:30 Dose: 650 mg Alprazolam (Xanax) 0.[address] [facility]; Protocol Stop: 11/16/18 18:01 Last Admin: 11/12/18 10:05 Dose: 0.5 mg Aspirin (Aspirin Chewable) [address] [facility] Last Admin: 11/12/18 10:06 Dose: 81 mg Atorvastatin Calcium (Lipitor) [address] [facility] Last Admin: 11/11/18 17:45 Dose: 40 mg Clopidogrel Bisulfate (Plavix) [address] [facility] Last Admin: 11/12/18 10:06 Dose: 75 mg Dextrose (Dextrose 50% Inj) 0 ml IV STAT PRN; Protocol PRN Reason: Hypoglycemia Protocol Famotidine (Pepcid) [address] [facility] Last Admin: 11/12/18 10:10 Dose: 20 mg Dextrose (Dextrose 5% In Water 1000 Ml) 1,000 mls @ 0 mls/hr IV .Q0M PRN; Protocol PRN Reason: Hypoglycemia Protocol Insulin Human Lispro (Humalog Med) [address] [facility]; Protocol Last Admin: 11/12/18 10:10 Dose: 1 units Lorazepam (Ativan) 2 mg IVP Q6H PRN; Protocol PRN Reason: Agitation Last Admin: 11/12/18 14:27 Dose: 2 mg Metoprolol Tartrate (Lopressor) [address] [facility] Last Admin: 11/12/18 10:06 Dose: 25 mg Mupirocin (Bactroban Ointment) [address] [facility] Last Admin: 11/11/18 17:48 Dose: 1 applic Nicotine (Nicoderm Cq) [address] [facility] Last Admin: 11/12/18 10:11 Dose: 1 patch Quetiapine Fumarate (Seroquel) 25 mg PO DAILY@0900 [facility]; Protocol Last Admin: 11/12/18 10:06 Dose: 25 mg Quetiapine Fumarate (Seroquel) 75 mg PO 1830 [facility]; Protocol Zolpidem Tartrate (Ambien) [address] [facility]; Protocol Last Admin: 11/11/18 23:11 Dose: 5 mg - Labs Labs: 11/12/18 06:30 11/12/18 06:30 PT 12.7 SECONDS (9.4-12.5) H 11/02/18 13:38 INR 1.12 11/02/18 13:38 APTT 39.3 Seconds (26.9-38.3) H 11/02/18 13:38 - Constitutional Appears: Non-toxic - Head Exam Additional comments: Pt has L sided facial droop and is unable to puff out cheeks on L side. - Eye Exam Eye Exam: EOMI, Normal appearance, PERRL - Respiratory Exam Respiratory Exam: Clear to Ausculation Bilateral, NORMAL BREATHING PATTERN. absent: Accessory Muscle Use, Rales, Rhonchi, Wheezes, Respiratory Distress, Stridor - Cardiovascular Exam Cardiovascular Exam: RRR, +S1, +S2. absent: Gallop, Rubs - GI/Abdominal Exam GI & Abdominal Exam: Soft, Normal Bowel Sounds. absent: Firm, Guarding, Rigid, Tenderness - Extremities Exam Additional comments: Pt has no noted movement for LUE or LLE. - Back Exam Back Exam: NORMAL INSPECTION. absent: CVA tenderness (L), CVA tenderness (R) - Neurological Exam Neurological Exam: Alert, Awake Neuro motor strength exam: Left Upper Extremity: 0, Right Upper Extremity: 5, Left Lower Extremity: 0, Right Lower Extremity: 5 Additional comments: Cranial nerves: EOM's Intact: Normal, Tongue Deviation: Normal Sensory exam: Lower Extremity 2 Point Discrimination: Abnormal Left, Lower Extremity Light Touch: Abnormal Left, Lower Extremity Pin Prick: Abnormal Left, Lower Extremity Temperature: Abnormal Left, Upper Extremity 2 Point Discrimination: Abnormal Left, Upper Extremity Light Touch: Abnormal Left, Upper Extremity Pin Prick: Abnormal Left, Upper Extremity Temperature: Abnormal Left Coma Scale Eye Opening: SPONTANEOUS Coma Scale Motor Response: OBEYS COMMANDS Coma Scale Verbal: Oriented Coma Scale Total: 15 - Psychiatric Exam Psychiatric exam: Agitated - Skin Skin Exam: Dry, Normal Color, Warm Assessment and Plan - Assessment and Plan (Free Text) Assessment: Pt is a 53 yo M with pmhx of HTN, DM, HLD and ischemic CVA (07/22) who presented from psych floor for hemorrhagic stroke. MRI 11/01/18: Subacute to chronic involving R temporal and frontal parietal ischemic infarct with hemorrhagic component. Associated residual vasogenic edema. Hemosiderin ring present. Head and neck CT: 1. Critical stenosis origin R ICA. Greater than 75% stenosis origin L ICA. 2. Mod-severe multifocal stenosis R ICA cavernous and supreclinoid segment. No sig stenosis L cavernous and intracranial ICA. 3. Slight increase in stenosis of R M1 MCA. CT head 11/03: No change in large MCA distribution infarct, No evidence of midline shift. CT head:11/05 showed no signs of acute hemorrhage. Pt transferred out of ICU and on to floors. Pt is awaiting acceptance to Acute rehab per PT recs. Pt accepted to [facility], will await 24 hours without need for 1:1. 1:1 d/ariane per psych. Plan: 1) Hemorrhagic stroke: - MRI 11/01/18: Subacute to chronic involving R temporal and frontal parietal ischemic infarct with hemorrhagic component. Associated residual vasogenic edema. Hemosiderin ring present. - Head and neck CT:11/02/18: 1. Critical stenosis origin R ICA. Greater than 75% stenosis origin L ICA. 2. Mod-severe multifocal stenosis R ICA cavernous and supreclinoid segment. No sig stenosis L cavernous and intracranial ICA. 3. Slight increase in stenosis of R M1 MCA. please refer to full report for additional details - CT head 11/03: No change in large MCA distribution infarct, No evidence of midline shift. - CT Head 11/05: No acute intracranial hemorrhage. Re-demonstration of large chronic R MCA territory infarct - Please refer to full report for details - Lipid Panel - Cholesterol - 164, LDL - 71, HDL - 35, T - Asa, plavix - Cont per neuro - Cont statin - Aspiration precautions - High fall risk - OOB w/ assistance - Head of bed elevation 30 - Neuro Q4 - VS Q4 - Neuro consult - Dr. Agudelo - Seroquel 25mg AM and 75mg QHS - Neurosurg Consult - Dr. Martinez - No neurosurgical intervention at this time - Neurointerventionalist consult - Dr. Cruz - No acute intervention at this time. - Psych Consult - Dr. Pavon - Ativan .5 PRN for agitation, Ambien 5mg qhs - PT eval - Acute Rehab 2) Hx of DM: - ISS - Medium - Finger sticks QACHS - Hypoglycemia protocol ordered PRN 3) Hx of HTN: - Cont home metoprolol 25mg QHS - Q4 vital signs 4) Hx of HLD: - Cont lipitor 40qd 5) Hx of tobacco abuse: - Nicotine Patch PPx: GI: Pepcid DVT: SCDs Dispo: Pt accepted to [facility]. Pt and GF are in agreement with plan. 1:1 D/ariane. Pt still agitated. Case seen and discussed with Dr. Randy Alexandra, PGY-1 <Jonn Padilla - Last Filed: 11/12/18 18:29> Objective - Vital Signs/Intake and Output Vital Signs (last 24 hours): Temp Pulse Resp BP Pulse Ox 98.2 F 100 H 20 165/78 H 96 11/12/18 17:15 11/12/18 17:15 11/12/18 17:15 11/12/18 17:15 11/12/18 17:15 - Medications Medications: Current Medications Acetaminophen (Tylenol 325mg Tab) 650 mg PO Q6H PRN PRN Reason: Pain, moderate (4-7) Last Admin: 11/10/18 14:30 Dose: 650 mg Alprazolam (Xanax) 0.[address] [facility]; Protocol Stop: 11/16/18 18:01 Last Admin: 11/12/18 17:55 Dose: 0.5 mg Aspirin (Aspirin Chewable) [address] [facility] Last Admin: 11/12/18 10:06 Dose: 81 mg Atorvastatin Calcium (Lipitor) [address] [facility] Last Admin: 11/12/18 17:55 Dose: 40 mg Clopidogrel Bisulfate (Plavix) [address] [facility] Last Admin: 11/12/18 10:06 Dose: 75 mg Dextrose (Dextrose 50% Inj) 0 ml IV STAT PRN; Protocol PRN Reason: Hypoglycemia Protocol Famotidine (Pepcid) [address] [facility] Last Admin: 11/12/18 10:10 Dose: 20 mg Dextrose (Dextrose 5% In Water 1000 Ml) 1,000 mls @ 0 mls/hr IV .Q0M PRN; Protocol PRN Reason: Hypoglycemia Protocol Insulin Human Lispro (Humalog Med) [address] [facility]; Protocol Last Admin: 11/12/18 17:55 Dose: 3 units Lorazepam (Ativan) 2 mg IVP Q6H PRN; Protocol PRN Reason: Agitation Last Admin: 11/12/18 14:27 Dose: 2 mg Metoprolol Tartrate (Lopressor) [address] [facility] Last Admin: 11/12/18 17:55 Dose: 25 mg Mupirocin (Bactroban Ointment) [address] [facility] Last Admin: 11/11/18 17:48 Dose: 1 applic Nicotine (Nicoderm Cq) [address] [facility] Last Admin: 11/12/18 10:11 Dose: 1 patch Ziprasidone (Geodon Cap) [address] [facility]; Protocol Last Admin: 11/12/18 17:55 Dose: 20 mg Ziprasidone (Geodon Cap) [address] [facility]; Protocol Zolpidem Tartrate (Ambien) [address] [facility]; Protocol Last Admin: 11/11/18 23:11 Dose: 5 mg - Labs Labs: 11/12/18 06:30 11/12/18 06:30 PT 12.7 SECONDS (9.4-12.5) H 11/02/18 13:38 INR 1.12 11/02/18 13:38 APTT 39.3 Seconds (26.9-38.3) H 11/02/18 13:38 Attending/Attestation - Attestation I have personally seen and examined this patient.: Yes I have fully participated in the care of the patient.: Yes I have reviewed all pertinent clinical information, including history, physical exam and plan: Yes Notes (Text): 11/12/18 18:09 Ischemic stroke with hemorrhagic component DM Severe agitation HTN Pt evaluated by neuro and neurosurgery. No intervention necessary Pt evaluated by psych for severe agitation Pt's 1:1 has been discontinued for almost 24hrs c/w RISS
--- NOTE | 2018-11-12 17:44 | CARD ---
APPROVED REPORT Date of service: 11/12/2018 EKG Measurement Heart [id number] <Conclusion> Normal sinus rhythm Possible Left atrial enlargement Left ventricular hypertrophy Prolonged QT Abnormal ECG
--- NOTE | 2018-11-12 19:01 | PN ---
DATE: 11/12/2018 SUBJECTIVE: The patient was seen and examined today. The patient is status post IM of Geodon. The patient is deeply sleeping during this narrative writer round. As per report overnight, the patient was agitated, was delusional. The patient was making threats. The patient required to be on Geodon IM. It seems like Seroquel is not helping the patient that much and the patient is better tolerating Geodon, that is why this narrative writer will discontinue Seroquel and start Geodon. Discussed with nursing staff. As per nursing staff, as this narrative writer mentioned above, the patient tolerated Geodon better and much calmer on that medication. PHYSICAL EXAMINATION: VITAL SIGNS: Stable. Temperature 97.5, pulse is 84, blood pressure 140/87, respirations 20 and oxygen saturations 96. MEDICATIONS: Reviewed. The patient is on Tylenol, Xanax 0.5 mg twice a day schedule, aspirin, Lipitor, Plavix, dextrose, Pepcid, Humalog, Ativan 2 mg IV push every 6 hours as needed for agitation, Lopressor, Bactroban, Nicoderm, Geodon will be started at 20 mg twice a day as well as 20 mg at the nighttime, Ambien 5 mg at the nighttime schedule. LABORATORY DATA: Labs reviewed. Most recent was from today. Coagulation reviewed and chemistry reviewed. This narrative writer checked previous records. EKG was done today. This narrative writer is not sure what is the QTC today but as per EKG which was done on 11/02/2018 the patient does not have any QTC prolongation. MENTAL STATUS EXAM: The patient was deeply sleeping, status post IM because the patient had restless night. 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 The patient is status post stroke. PLAN: This narrative writer started Geodon 20 mg twice a day as well as at the nighttime for mood stabilization because the patient has episodes of aggression and agitation and the patient might pose a danger to self or others. This narrative writer discontinue Seroquel which was not effective. This narrative writer would suggest to continue Xanax as well as Ambien. Another medication which could be tried is as Depakote, but at the same time, this narrative writer does not want to implement so many medications at the same time. We will keep eye on QTC prolongation. We will follow up and advise accordingly. Over the weekend, Dr. Foster will follow up on this patient. Savanah Galarza MD
[2018-11-13] MEDS ORDERED: Vancomycin 1gm in NS 250ml 1 GM/250 ML BAG IVPB STA (04:11)
[2018-11-13] MEDS ORDERED: Piperacillin/Tazobact 3.375 gm 100 ML IVPB STA (04:13)
[2018-11-13 04:31] LABS: URINE BILIRUBIN NEGATIVE (NEGATIVE); URINE BLOOD NEGATIVE (NEGATIVE); URINE GLUCOSE (UA) 100 mg/dL (NEGATIVE); URINE LEUKOCYTE ESTERASE NEGATIVE Leu/uL (NEGATIVE); URINE PROTEIN NEGATIVE mg/dL (<30 mg/dL); URINE UROBILINOGEN 0.2 E.U./dL (<1 E.U./dL)
[2018-11-13 04:47] LABS: URINE APPEARANCE CLEAR (CLEAR); URINE COLOR YELLOW (YELLOW)
[2018-11-13 06:02] LABS: BASO # 0.03 K/mm3 (0.0-2.0); BASO % 0.3 % (0.0-3.0); HEMOGLOBIN 10.2 g/dL (14.0-18.0); LYMPH # 2.2 (1.2-3.4); LYMPH % 22.1 % (22.0-35.0); MEAN CELL VOLUME 83.6 fl (80.0-105.0); MEAN CORPUSCULAR HGB CONC 32.3 g/dl (31.0-37.0); MEAN PLATELET VOLUME 9.2 fl (7.0-11.0); MONO % 9.5 % (1.0-6.0); RBC 3.78 10^6/uL (3.5-6.1); RED CELL DISTRIBUTION WIDTH 15.1 % (11.5-14.5)
[2018-11-13 06:27] LABS: ALB/GLOB RATIO 0.9 (1.1-1.8); ALBUMIN 2.9 g/dL (3.0-4.8); ALT/SGPT 23 U/L (7-56); AST/SGOT 26 U/L (17-59); BLOOD UREA NITROGEN 11 mg/dL (7-21); GFR NON-AFRICAN AMERICAN > 60
[2018-11-13] MEDS ORDERED: Potassium Chloride 20 mEq ER Tab PO ONE ×3 (07:03→14:56)
--- NOTE | 2018-11-13 08:45 | RAD ---
Date of service: 11/13/2018 HISTORY: fever COMPARISON: 11/02/2018 FINDINGS: LUNGS: No active pulmonary disease. PLEURA: No significant pleural effusion identified, no pneumothorax apparent. CARDIOVASCULAR: No aortic atherosclerotic calcification present. Normal cardiac size. No pulmonary vascular congestion. OSSEOUS STRUCTURES: No significant abnormalities. VISUALIZED UPPER ABDOMEN: Normal. OTHER FINDINGS: None. IMPRESSION: No active disease.
[2018-11-13] MEDS: Insulin Lispro (humaLOG) MEDIUM Coverage SC SCH ×3 (10:26→17:53)
[2018-11-13] MEDS: Mupirocin 2% Ointment 15 GM TUBE TOP SCH ×2 (11:43→17:46)
--- NOTE | 2018-11-13 13:49 | PN ---
DATE: 11/13/2018 SUBJECTIVE: The patient was seen today. The patient presented to be lethargic. As per team, the patient had short period of agitation overnight, but overall much better to compare with the previous nights. Unfortunately, the patient had spike of fever. This play writer is not aware what it is related to. The patient is also tachycardic. This play writer tried to wake the patient up. The patient was able to open his eyes, but fall back asleep. Labs reviewed, most recent was from today. Hemoglobin and hematocrit low. Absolute neutrophil count is elevated. Urinalysis negative for any infection. Mental status examination was not able to be performed because the patient is lethargic. IMPRESSION: The patient is still in delirium stage which seems to be hypoactive/ hyperactive. The patient also has multiple medical issues including stroke, deconditioning, and delirium. PLAN: This play writer changed Geodon. This play writer discontinued Seroquel because the patient was not improving on Seroquel and as per report, Geodon was helping the patient in better way, that is why Geodon was started yesterday, but the patient got only one dose. The patient also is on Xanax, which is on hold right now because the patient is lethargic. The patient has spike of fever. Infectious Disease should be considered. Meanwhile, family is involved. The patient was accepted to [facility] for subacute rehab. Meanwhile, continue everything and should you have any questions give me a call back. This play writer will follow up and advise accordingly. Thank you very much. Savanah Galarza MD [facility]
--- NOTE | 2018-11-13 17:28 | CP.PCM.PN ---
<Ha Alexandra - Last Filed: 11/13/18 17:24> Subjective - Date & Time of Evaluation Date of Evaluation: 11/13/18 Time of Evaluation: 09:30 - Subjective Subjective: Ha Alexandra, PGY-1 Medicine Progress Note for Dr. Padilla: Pt was seen and examined this AM at bedside. Pt last night had spiked a fever, and was started on empiric abx, pt has been afebrile since. Pt was somnolent in the AM but he denied any visual hallucinations. Pt continues to experience bouts of agitation and delusions. He states that he is having no further headaches and there are no further neurologic deficits as pt can move R UE and R LE spontaneo usly. He has no other acute complaints at this time. He will be re-evaled by psych later today. At this time pt has no SI/HI. 1:1 d/ariane per psych 11/10. Objective - Vital Signs/Intake and Output Vital Signs (last 24 hours): Temp Pulse Resp BP Pulse Ox 100.2 F H 122 H 20 119/79 96 11/13/18 08:20 11/13/18 10:27 11/13/18 08:20 11/13/18 10:27 11/13/18 08:20 Intake and Output: 11/13/18 11/13/18 06:59 18:59 Intake Total 1190 Balance 1190 - Medications Medications: Current Medications Acetaminophen (Tylenol 325mg Tab) 650 mg PO Q6H PRN PRN Reason: Pain, moderate (4-7) Last Admin: 11/13/18 02:38 Dose: 650 mg Acetaminophen (Tylenol 325 Mg Supp) 325 mg RC Q6H PRN PRN Reason: Fever >100.4 F Alprazolam (Xanax) 0.5 mg PO BID [facility]; Protocol Stop: 11/16/18 18:01 Last Admin: 11/13/18 11:45 Dose: Not Given Aspirin (Aspirin Chewable) 81 mg PO DAILY [facility] Last Admin: 11/13/18 11:43 Dose: Not Given Atorvastatin Calcium (Lipitor) 40 mg PO DIN [facility] Last Admin: 11/12/18 17:55 Dose: 40 mg Clopidogrel Bisulfate (Plavix) 75 mg PO DAILY [facility] Last Admin: 11/13/18 15:27 Dose: 75 mg Dextrose (Dextrose 50% Inj) 0 ml IV STAT PRN; Protocol PRN Reason: Hypoglycemia Protocol Famotidine (Pepcid) 20 mg PO Q12 [facility] Last Admin: 11/13/18 10:27 Dose: Not Given Dextrose (Dextrose 5% In Water 1000 Ml) 1,000 mls @ 0 mls/hr IV .Q0M PRN; Protocol PRN Reason: Hypoglycemia Protocol Insulin Human Lispro (Humalog Med) 0 units SC ACHS [facility]; Protocol Last Admin: 11/13/18 11:44 Dose: 3 units Lorazepam (Ativan) 2 mg IVP Q6H PRN; Protocol PRN Reason: Agitation Last Admin: 11/13/18 00:01 Dose: 2 mg Metoprolol Tartrate (Lopressor) 25 mg PO BRKDIN [facility] Last Admin: 11/13/18 10:27 Dose: Not Given Mupirocin (Bactroban Ointment) 0 gm TOP BID [facility] Last Admin: 11/13/18 11:43 Dose: 1 applic Nicotine (Nicoderm Cq) 1 patch TD DAILY [facility] Last Admin: 11/13/18 11:45 Dose: 1 patch Vitamin A (Vitamin A & D Oint Ud Foilpak) 1 ea TOP BID [facility] Ziprasidone (Geodon Cap) 20 mg PO HS [facility]; Protocol Last Admin: 11/12/18 22:30 Dose: 20 mg Ziprasidone (Geodon Cap) 20 mg PO DAILY [facility]; Protocol Zolpidem Tartrate (Ambien) 5 mg PO HS [facility]; Protocol Last Admin: 11/12/18 22:30 Dose: 5 mg - Labs Labs: 11/13/18 05:50 11/13/18 05:50 PT 12.7 SECONDS (9.4-12.5) H 11/02/18 13:38 INR 1.12 11/02/18 13:38 APTT 39.3 Seconds (26.9-38.3) H 11/02/18 13:38 - Constitutional Appears: Non-toxic - Head Exam Additional comments: Pt has L sided facial droop and is unable to puff out cheeks on L side. - Eye Exam Eye Exam: EOMI, Normal appearance, PERRL - Respiratory Exam Respiratory Exam: Clear to Ausculation Bilateral, NORMAL BREATHING PATTERN. ab sent: Accessory Muscle Use, Rales, Rhonchi, Wheezes, Respiratory Distress, Stridor - Cardiovascular Exam Cardiovascular Exam: RRR, +S1, +S2. absent: Gallop, Rubs - GI/Abdominal Exam GI & Abdominal Exam: Soft, Normal Bowel Sounds. absent: Firm, Guarding, Rigid, Tenderness - Extremities Exam Additional comments: Pt has no noted movement for LUE or LLE. - Back Exam Back Exam: NORMAL INSPECTION. absent: CVA tenderness (L), CVA tenderness (R) - Neurological Exam Neurological Exam: Alert, Awake Neuro motor strength exam: Left Upper Extremity: 0, Right Upper Extremity: 5, Left Lower Extremity: 0, Right Lower Extremity: 5 Additional comments: Cranial nerves: EOM's Intact: Normal, Tongue Deviation: Normal Sensory exam: Lower Extremity 2 Point Discrimination: Abnormal Left, Lower Extremity Light Touch: Abnormal Left, Lower Extremity Pin Prick: Abnormal Left, Lower Extremity Temperature: Abnormal Left, Upper Extremity 2 Point Discrimination: Abnormal Left, Upper Extremity Light Touch: Abnormal Left, Upper Extremity Pin Prick: Abnormal Left, Upper Extremity Temperature: Abnormal Left Coma Scale Eye Opening: SPONTANEOUS Coma Scale Motor Response: OBEYS COMMANDS Coma Scale Verbal: Oriented Coma Scale Total: 15 - Psychiatric Exam Additional comments: Somulent - Skin Skin Exam: Dry, Normal Color, Warm Assessment and Plan - Assessment and Plan (Free Text) Assessment: Pt is a 53 yo M with pmhx of HTN, DM, HLD and ischemic CVA (07/22) who presented from psych floor for hemorrhagic stroke. MRI 11/01/18: Subacute to chronic involving R temporal and frontal parietal ischemic infarct with hemorrhagic component. Associated residual vasogenic edema. Hemosiderin ring present. Head and neck CT: 1. Critical stenosis origin R ICA. Greater than 75% stenosis origin L ICA. 2. Mod-severe multifocal stenosis R ICA cavernous and supreclinoid segment. No sig stenosis L cavernous and intracranial ICA. 3. Slight increase in stenosis of R M1 MCA. CT head 11/03: No change in large MCA distribution infarct, No evidence of midline shift. CT head:11/05 showed no signs of acute hemorrhage. Pt transferred out of ICU and on to floors. Pt is awaiting acceptance to Acute rehab per PT recs. Pt accepted to [place], will await 24 hours without need for 1:1. 1:1 d/ariane per psych. Psych added geodon on the pt and d/ariane the seroquel. Plan: 1) Hemorrhagic stroke: - MRI 11/01/18: Subacute to chronic involving R temporal and frontal parietal ischemic infarct with hemorrhagic component. Associated residual vasogenic edema. Hemosiderin ring present. - Head and neck CT:11/02/18: 1. Critical stenosis origin R ICA. Greater than 75% stenosis origin L ICA. 2. Mod-severe multifocal stenosis R ICA cavernous and supreclinoid segment. No sig stenosis L cavernous and intracranial ICA. 3. Slight increase in stenosis of R M1 MCA. please refer to full report for addit ional details - CT head 11/03: No change in large MCA distribution infarct, No evidence of midline shift. - CT Head 11/05: No acute intracranial hemorrhage. Re-demonstration of large chronic R MCA territory infarct - Please refer to full report for details - Lipid Panel - Cholesterol - 164, LDL - 71, HDL - 35, T - Asa, plavix - Cont per neuro - Cont statin - Aspiration precautions - High fall risk - OOB w/ assistance - Head of bed elevation 30 - Neuro Q4 - VS Q4 - Neuro consult - Dr. Agudelo - seroquel d/ariane per psych due to tx failure - Neurosurg Consult - Dr. Martinez - No neurosurgical intervention at this time - Neurointerventionalist consult - Dr. Cruz - No acute intervention at this time. - Psych Consult - Dr. Pavon - Ativan .5 PRN for agitation, Ambien 5mg qhs, Geodon 20 AMHS - PT eval - Acute Rehab 2) Fever overnight: - Pt spiked a fever of 102.9. Blood cx, UA and CXR were done - Pts WBCs are not elevated - CXR and UA are negative for infx, awaiting blood cx results. - Empiric abx started - Vanc and zosyn, only recieved one dose. - No indication of infection at this time, given the pts other findings, no further treatment at this time and will follow blood cxs before restarting abx. - ID consulted 3) Hx of DM: - ISS - Medium - Finger sticks QACHS - Hypoglycemia protocol ordered PRN 4) Hx of HTN: - Cont home metoprolol 25mg QHS - Q4 vital signs 5) Hx of HLD: - Cont lipitor 40qd 6) Hx of tobacco abuse: - Nicotine Patch PPx: GI: Pepcid DVT: SCDs Dispo: Pt accepted to [facility]. Pt and GF are in agreement with plan. 1:1 D/ariane. Pt spiked fever last night. Will cont to monitor. Case seen and discussed with Dr. Randy Alexandra, PGY-1 <Jonn Padilla - Last Filed: 11/14/18 17:07> Objective - Vital Signs/Intake and Output Vital Signs (last 24 hours): Temp Pulse Resp BP Pulse Ox 97.6 F 90 20 131/83 96 11/14/18 07:52 11/14/18 08:36 11/14/18 07:52 11/14/18 08:36 11/14/18 07:52 Intake and Output: 11/14/18 11/14/18 06:59 18:59 Intake Total 0 0 Output Total 200 200 Balance -200 -200 - Medications Medications: Current Medications Acetaminophen (Tylenol 325mg Tab) 650 mg PO Q6H PRN PRN Reason: Pain, moderate (4-7) Last Admin: 11/13/18 17:48 Dose: 650 mg Acetaminophen (Tylenol 325 Mg Supp) 325 mg RC Q6H PRN PRN Reason: Fever >100.4 F Alprazolam (Xanax) 0.5 mg PO BID [facility]; Protocol Stop: 11/16/18 18:01 Last Admin: 11/14/18 10:21 Dose: 0.5 mg Aspirin (Aspirin Chewable) 81 mg PO DAILY [facility] Last Admin: 11/14/18 10:21 Dose: 81 mg Atorvastatin Calcium (Lipitor) 40 mg PO DIN [facility] Last Admin: 11/13/18 17:53 Dose: 40 mg Clopidogrel Bisulfate (Plavix) 75 mg PO DAILY [facility] Last Admin: 11/14/18 10:22 Dose: 75 mg Dextrose (Dextrose 50% Inj) 0 ml IV STAT PRN; Protocol PRN Reason: Hypoglycemia Protocol Famotidine (Pepcid) 20 mg PO Q12 [facility] Last Admin: 11/14/18 10:22 Dose: 20 mg Dextrose (Dextrose 5% In Water 1000 Ml) 1,000 mls @ 0 mls/hr IV .Q0M PRN; Protocol PRN Reason: Hypoglycemia Protocol Cefepime HCl (Maxipime 1gm) 1 gm in 100 mls @ 100 mls/hr IVPB Q8 [facility]; Protocol Stop: 11/22/18 22:01 Last Admin: 11/14/18 13:54 Dose: 100 mls/hr Daptomycin 440 mg/ Sodium (Chloride) 100 mls @ 200 mls/hr IV Q24H [facility] Stop: 12/12/18 10:01 Last Admin: 11/14/18 10:00 Dose: 200 mls/hr Insulin Human Lispro (Humalog Med) 0 units SC ACHS [facility]; Protocol Last Admin: 11/14/18 13:55 Dose: 2 units Lorazepam (Ativan) 2 mg IVP Q6H PRN; Protocol PRN Reason: Agitation Last Admin: 11/14/18 08:35 Dose: 2 mg Metoprolol Tartrate (Lopressor) 25 mg PO BRKDIN [facility] Last Admin: 11/14/18 08:36 Dose: 25 mg Mupirocin (Bactroban Ointment) 0 gm TOP BID [facility] Last Admin: 11/13/18 17:46 Dose: 1 applic Nicotine (Nicoderm Cq) 1 patch TD DAILY [facility] Last Admin: 11/14/18 10:22 Dose: 1 patch Vitamin A (Vitamin A & D Oint Ud Foilpak) 1 ea TOP BID [facility] Last Admin: 11/14/18 10:21 Dose: 1 ea Ziprasidone (Geodon Cap) 20 mg PO HS [facility]; Protocol Last Admin: 11/13/18 21:56 Dose: 20 mg Ziprasidone (Geodon Cap) 20 mg PO DAILY [facility]; Protocol Last Admin: 11/14/18 10:22 Dose: 20 mg Zolpidem Tartrate (Ambien) 5 mg PO HS [facility]; Protocol Last Admin: 11/13/18 21:56 Dose: 5 mg - Labs Labs: 11/14/18 06:00 11/14/18 06:00 PT 12.7 SECONDS (9.4-12.5) H 11/02/18 13:38 INR 1.12 11/02/18 13:38 APTT 39.3 Seconds (26.9-38.3) H 11/02/18 13:38 Attending/Attestation - Attestation I have personally seen and examined this patient.: Yes I have fully participated in the care of the patient.: Yes I have reviewed all pertinent clinical information, including history, physical exam and plan: Yes Notes (Text): 11/13/18 16:59 Ischemic stroke with hemorrhagic component DM Severe agitation HTN Pt spiked a temp overnight, blood cultures were sent. UA and CXR -ve f/u cultures. ID consulted Pt evaluated by neuro and neurosurgery. No intervention necessary Pt evaluated by psych for severe agitation c/w RISS
[2018-11-13] MEDS: Vitamins A & D Oint UD Foilpak TOP SCH (17:52)
[2018-11-13] MEDS: Vancomycin 1gm in NS 250ml 1 GM/250 ML BAG IVPB SCH (20:04)
--- NOTE | 2018-11-13 21:25 | CON ---
DATE: 11/13/2018 LOCATION: The patient is seen earlier today in Room 363, Bed 1. CHIEF COMPLAINT: Fever x1 day. HISTORY OF PRESENT ILLNESS: A 53-year-old male, who has a history of diabetes mellitus, hypertension, hyperlipidemia, and depression, who was admitted with a partial infarction, hemorrhagic component and has been in the hospital now for several days and now has a temperature of 102.9. Infectious Disease is requested. The patient with a history of hypertension, diabetes, and hyperlipidemia, had ischemic cerebrovascular accident in 07/2018, who presented from the psychiatric floor for a hemorrhagic stroke for which he had an MRI on 11/01/2018 and has been now in acute care and today he had a temperature of 102. Infectious Disease consultation requested. REVIEW OF SYSTEM: A 12-point review of system is performed. PAST MEDICAL HISTORY: Significant for the stroke and tobacco use, diabetes, hypertension, hyperlipidemia, and depression. PAST SURGICAL HISTORY: Significant for eye surgery and bladder surgery. ALLERGIES: THE PATIENT HAS NO KNOW ALLERGIES. PHYSICAL EXAMINATION GENERAL: He is lethargic, it has been the baseline since his stroke. VITAL SIGNS: Temperature of 102, heart rate of 116, blood pressure is 128/80, and respiratory rate of 22. HEENT: Unremarkable. NECK: Supple. LUNGS: Decreased breath sounds. HEART: Normal S1, S2. ABDOMEN: Soft, nontender. No organomegaly. No rebound. No guarding. No masses. EXTREMITIES: His right arm where the IV site was is erythematous with no discharge. LABORATORY DATA: Reveals the patient's white count of 10,000, hemoglobin of 10, platelets are 263, coagulation is noted. Chemistries are reviewed. Procalcitonin is 0.09. Urinalysis is unremarkable. Microbiology reveals the stool for C. diff is negative toxin and antigen. Nasal MRSA is negative. The patient had a chest x-ray today, which was reported to be no active disease. ASSESSMENT AND PLAN: A 53-year-old male with a history of diabetes, hypertension, hyperlipidemia, depression and now with sepsis, temperature of 102, heart rate of 116 with a right upper arm cellulitis. We will treat the patient with vancomycin and Maxipime. Pending blood and urine culture and we will also order an human immunodeficiency virus. We will make further recommendations and we will follow with you. Gage Soto MD [facility] # [id number]
[2018-11-13] MEDS: Cefepime 1gm in NS 100ml 1 GM/100 ML BAG IVPB SCH (21:55)
--- NOTE | 2018-11-14 00:10 | CARD ---
APPROVED REPORT Date of service: 11/13/2018 EKG Measurement Heart [id number] <Conclusion> Sinus tachycardia Otherwise normal ECG
[2018-11-14] MEDS: Insulin Lispro (humaLOG) MEDIUM Coverage SC SCH ×6 (00:21→21:54)
[2018-11-14] MEDS: Cefepime 1gm in NS 100ml 1 GM/100 ML BAG IVPB SCH ×3 (05:01→21:55)
[2018-11-14] MEDS: Vancomycin 1gm in NS 250ml 1 GM/250 ML BAG IVPB SCH (06:06)
[2018-11-14 07:25] LABS: ALB/GLOB RATIO 1.1 (1.1-1.8); ALBUMIN 3.6 g/dL (3.0-4.8); ALT/SGPT 27 U/L (7-56); AST/SGOT 28 U/L (17-59); BLOOD UREA NITROGEN 14 mg/dL (7-21); GFR NON-AFRICAN AMERICAN > 60
[2018-11-14 07:50] LABS: BASO # 0.05 K/mm3 (0.0-2.0); BASO % 0.5 % (0.0-3.0); EOS # 0.3 (0.0-0.7); EOS % 2.5 % (1.5-5.0); HEMOGLOBIN 11.4 g/dL (14.0-18.0); LYMPH % 19.4 % (22.0-35.0); MEAN CORPUSCULAR HEMOGLOBIN 26.7 pg (25.0-35.0); MEAN CORPUSCULAR HGB CONC 31.4 g/dl (31.0-37.0); MEAN PLATELET VOLUME 9.6 fl (7.0-11.0); MONO # 1.1 (0.1-0.6); RBC 4.27 10^6/uL (3.5-6.1); RED CELL DISTRIBUTION WIDTH 15.6 % (11.5-14.5); WHITE BLOOD COUNT 10.3 10^3/uL (4.5-11.0)
[2018-11-14] MEDS ORDERED: DAPTOmycin 500 mg Inj (Cubicin) IV SCH (10:00)
[2018-11-14] MEDS: Vitamins A & D Oint UD Foilpak TOP SCH ×2 (10:21→18:38)
[2018-11-14 11:51] LABS: CK-MB 1.1 ng/mL (0.0-3.6)
--- NOTE | 2018-11-14 14:55 | CP.PCM.PN ---
<Ha Alexandra - Last Filed: 11/14/18 14:45> Subjective - Date & Time of Evaluation Date of Evaluation: 11/14/18 Time of Evaluation: 09:15 - Subjective Subjective: Ha Alexandra, PGY-1 Medicine Progress Note for Dr. Padilla: Pt was seen and examined this AM at bedside. Pt was somnolent in the AM but he denied any visual hallucinations. Pt continues to experience bouts of agitation and delusions. He states that he is having no further headaches and there are no further neurologic deficits as pt can move R UE and R LE spontaneously. Pt was agitated again overnight. He has no other acute complaints at this time. He will be re-evaled by psych later today. At this time pt has no SI/HI. 1:1 d/ariane per psych 11/10. Pt has been afebrile since yesterday where a temp was noted of 102.9. Objective - Vital Signs/Intake and Output Vital Signs (last 24 hours): Temp Pulse Resp BP Pulse Ox 97.6 F 90 20 131/83 96 11/14/18 07:52 11/14/18 08:36 11/14/18 07:52 11/14/18 08:36 11/14/18 07:52 Intake and Output: 11/14/18 11/14/18 06:59 18:59 Intake Total 0 Output Total 200 Balance -200 - Medications Medications: Current Medications Acetaminophen (Tylenol 325mg Tab) 650 mg PO Q6H PRN PRN Reason: Pain, moderate (4-7) Last Admin: 11/13/18 17:48 Dose: 650 mg Acetaminophen (Tylenol 325 Mg Supp) 325 mg RC Q6H PRN PRN Reason: Fever >100.4 F Alprazolam (Xanax) 0.5 mg PO BID [facility]; Protocol Stop: 11/16/18 18:01 Last Admin: 11/14/18 10:21 Dose: 0.5 mg Aspirin (Aspirin Chewable) 81 mg PO DAILY [facility] Last Admin: 11/14/18 10:21 Dose: 81 mg Atorvastatin Calcium (Lipitor) 40 mg PO DIN [facility] Last Admin: 11/13/18 17:53 Dose: 40 mg Clopidogrel Bisulfate (Plavix) 75 mg PO DAILY [facility] Last Admin: 11/14/18 10:22 Dose: 75 mg Dextrose (Dextrose 50% Inj) 0 ml IV STAT PRN; Protocol PRN Reason: Hypoglycemia Protocol Famotidine (Pepcid) 20 mg PO Q12 [facility] Last Admin: 11/14/18 10:22 Dose: 20 mg Dextrose (Dextrose 5% In Water 1000 Ml) 1,000 mls @ 0 mls/hr IV .Q0M PRN; Protocol PRN Reason: Hypoglycemia Protocol Cefepime HCl (Maxipime 1gm) 1 gm in 100 mls @ 100 mls/hr IVPB Q8 [facility]; Protocol Stop: 11/22/18 22:01 Last Admin: 11/14/18 13:54 Dose: 100 mls/hr Daptomycin 440 mg/ Sodium (Chloride) 100 mls @ 200 mls/hr IV Q24H [facility] Stop: 12/12/18 10:01 Last Admin: 11/14/18 10:00 Dose: 200 mls/hr Insulin Human Lispro (Humalog Med) 0 units SC ACHS [facility]; Protocol Last Admin: 11/14/18 13:55 Dose: 2 units Lorazepam (Ativan) 2 mg IVP Q6H PRN; Protocol PRN Reason: Agitation Last Admin: 11/14/18 08:35 Dose: 2 mg Metoprolol Tartrate (Lopressor) 25 mg PO BRKDIN [facility] Last Admin: 11/14/18 08:36 Dose: 25 mg Mupirocin (Bactroban Ointment) 0 gm TOP BID [facility] Last Admin: 11/13/18 17:46 Dose: 1 applic Nicotine (Nicoderm Cq) 1 patch TD DAILY [facility] Last Admin: 11/14/18 10:22 Dose: 1 patch Vitamin A (Vitamin A & D Oint Ud Foilpak) 1 ea TOP BID [facility] Last Admin: 11/14/18 10:21 Dose: 1 ea Ziprasidone (Geodon Cap) 20 mg PO HS [facility]; Protocol Last Admin: 11/13/18 21:56 Dose: 20 mg Ziprasidone (Geodon Cap) 20 mg PO DAILY [facility]; Protocol Last Admin: 11/14/18 10:22 Dose: 20 mg Zolpidem Tartrate (Ambien) 5 mg PO HS [facility]; Protocol Last Admin: 11/13/18 21:56 Dose: 5 mg - Labs Labs: 11/14/18 06:00 11/14/18 06:00 PT 12.7 SECONDS (9.4-12.5) H 11/02/18 13:38 INR 1.12 11/02/18 13:38 APTT 39.3 Seconds (26.9-38.3) H 11/02/18 13:38 - Constitutional Appears: Non-toxic - Head Exam Additional comments: Pt has L sided facial droop and is unable to puff out cheeks on L side. - Eye Exam Eye Exam: EOMI, Normal appearance, PERRL - Respiratory Exam Respiratory Exam: Clear to Ausculation Bilateral, NORMAL BREATHING PATTERN. absent: Accessory Muscle Use, Rales, Rhonchi, Wheezes, Respiratory Distress, Stridor - Cardiovascular Exam Cardiovascular Exam: RRR, +S1, +S2. absent: Gallop, Rubs - GI/Abdominal Exam GI & Abdominal Exam: Soft, Normal Bowel Sounds. absent: Firm, Guarding, Rigid, Tenderness - Extremities Exam Additional comments: Pt has no noted movement in LUE or LLE. - Back Exam Back Exam: NORMAL INSPECTION. absent: CVA tenderness (L), CVA tenderness (R) - Neurological Exam Neurological Exam: Alert, Awake Neuro motor strength exam: Left Upper Extremity: 0, Right Upper Extremity: 5, Left Lower Extremity: 0, Right Lower Extremity: 5 Additional comments: Cranial nerves: EOM's Intact: Normal, Tongue Deviation: Normal Sensory exam: Lower Extremity 2 Point Discrimination: Abnormal Left, Lower Extremity Light Touch: Abnormal Left, Lower Extremity Pin Prick: Abnormal Left, Lower Extremity Temperature: Abnormal Left, Upper Extremity 2 Point Discrimination: Abnormal Left, Upper Extremity Light Touch: Abnormal Left, Upper Extremity Pin Prick: Abnormal Left, Upper Extremity Temperature: Abnormal Left Coma Scale Eye Opening: SPONTANEOUS Coma Scale Motor Response: OBEYS COMMANDS Coma Scale Verbal: Oriented Coma Scale Total: 15 - Psychiatric Exam Psychiatric exam: Normal Affect, Normal Mood - Skin Skin Exam: Dry, Normal Color, Warm Assessment and Plan - Assessment and Plan (Free Text) Assessment: Pt is a 53 yo M with pmhx of HTN, DM, HLD and ischemic CVA (07/22) who presented from psych floor for hemorrhagic stroke. MRI 11/01/18: Subacute to chronic involving R temporal and frontal parietal ischemic infarct with hemorrhagic component. Associated residual vasogenic edema. Hemosiderin ring present. Head and neck CT: 1. Critical stenosis origin R ICA. Greater than 75% stenosis origin L ICA. 2. Mod-severe multifocal stenosis R ICA cavernous and supreclinoid segment. No sig stenosis L cavernous and intracranial ICA. 3. Slight increase in stenosis of R M1 MCA. CT head 11/03: No change in large MCA distribution infarct, No evidence of midline shift. CT head:11/05 showed no signs of acute hemorrhage. Pt transferred out of ICU and on to floors. Pt is awaiting acceptance to Acute rehab per PT recs. Pt accepted to [facility], will await 24 hours without need for 1:1. 1:1 d/ariane per psych. Blood Cxs came back (+) for Gram + cocci and Staph Aureus. Plan: 1) Hemorrhagic stroke: - MRI 11/01/18: Subacute to chronic involving R temporal and frontal parietal ischemic infarct with hemorrhagic component. Associated residual vasogenic edema. Hemosiderin ring present. - Head and neck CT:11/02/18: 1. Critical stenosis origin R ICA. Greater than 75% stenosis origin L ICA. 2. Mod-severe multifocal stenosis R ICA cavernous and supreclinoid segment. No sig stenosis L cavernous and intracranial ICA. 3. Slight increase in stenosis of R M1 MCA. please refer to full report for additional details - CT head 11/03: No change in large MCA distribution infarct, No evidence of midline shift. - CT Head 11/05: No acute intracranial hemorrhage. Re-demonstration of large chronic R MCA territory infarct - Please refer to full report for details - Lipid Panel - Cholesterol - 164, LDL - 71, HDL - 35, T - Asa, plavix - Cont per neuro - Cont statin - Aspiration precautions - High fall risk - OOB w/ assistance - Head of bed elevation 30 - Neuro Q4 - VS Q4 - Neuro consult - Dr. Agudelo - Seroquel 25mg AM and 75mg QHS - Neurosurg Consult - Dr. Martinez - No neurosurgical intervention at this time - Neurointerventionalist consult - Dr. Cruz - No acute intervention at this time. - Psych Consult - Dr. Pavon - Ativan .5 PRN for agitation, Ambien 5mg qhs - PT eval - Acute Rehab 2) Gram (+) Bacteremia: - Blood Cxs on 11/13 noted to be (+) for gram (+) cocci in both bottles - ID on board, Daptomycin, cefepime on board per ID recs - f/u echo 3) Hx of DM: - ISS - Medium - Finger sticks QACHS - Hypoglycemia protocol ordered PRN 4) Hx of HTN: - Cont home metoprolol 25mg QHS - Q4 vital signs 5) Hx of HLD: - Cont lipitor 40qd 6) Hx of tobacco abuse: - Nicotine Patch PPx: GI: Pepcid DVT: SCDs Dispo: Pt accepted to [facility]. Pt and GF are in agreement with plan. 1:1 D/ariane. Pt still agitated. Pt had Gram + cocci in both blood cxs. Case seen and discussed with Dr. Randy Alexandra, PGY-1 <Jonn Padilla - Last Filed: 11/14/18 16:58> Objective - Vital Signs/Intake and Output Vital Signs (last 24 hours): Temp Pulse Resp BP Pulse Ox 97.6 F 90 20 131/83 96 11/14/18 07:52 11/14/18 08:36 11/14/18 07:52 11/14/18 08:36 11/14/18 07:52 Intake and Output: 11/14/18 11/14/18 06:59 18:59 Intake Total 0 Output Total 200 Balance -200 - Medications Medications: Current Medications Acetaminophen (Tylenol 325mg Tab) 650 mg PO Q6H PRN PRN Reason: Pain, moderate (4-7) Last Admin: 11/13/18 17:48 Dose: 650 mg Acetaminophen (Tylenol 325 Mg Supp) 325 mg RC Q6H PRN PRN Reason: Fever >100.4 F Alprazolam (Xanax) 0.5 mg PO BID [facility]; Protocol Stop: 11/16/18 18:01 Last Admin: 11/14/18 10:21 Dose: 0.5 mg Aspirin (Aspirin Chewable) 81 mg PO DAILY [facility] Last Admin: 11/14/18 10:21 Dose: 81 mg Atorvastatin Calcium (Lipitor) 40 mg PO DIN [facility] Last Admin: 11/13/18 17:53 Dose: 40 mg Clopidogrel Bisulfate (Plavix) 75 mg PO DAILY [facility] Last Admin: 02/10/19 10:22 Dose: 75 mg Dextrose (Dextrose 50% Inj) 0 ml IV STAT PRN; Protocol PRN Reason: Hypoglycemia Protocol Famotidine (Pepcid) 20 mg PO Q12 [facility] Last Admin: 11/14/18 10:22 Dose: 20 mg Dextrose (Dextrose 5% In Water 1000 Ml) 1,000 mls @ 0 mls/hr IV .Q0M PRN; Protocol PRN Reason: Hypoglycemia Protocol Cefepime HCl (Maxipime 1gm) 1 gm in 100 mls @ 100 mls/hr IVPB Q8 [facility]; Protocol Stop: 11/22/18 22:01 Last Admin: 11/14/18 13:54 Dose: 100 mls/hr Daptomycin 440 mg/ Sodium (Chloride) 100 mls @ 200 mls/hr IV Q24H [facility] Stop: 12/12/18 10:01 Last Admin: 11/14/18 10:00 Dose: 200 mls/hr Insulin Human Lispro (Humalog Med) 0 units SC ACHS [facility]; Protocol Last Admin: 11/14/18 13:55 Dose: 2 units Lorazepam (Ativan) 2 mg IVP Q6H PRN; Protocol PRN Reason: Agitation Last Admin: 11/14/18 08:35 Dose: 2 mg Metoprolol Tartrate (Lopressor) 25 mg PO BRKDIN [facility] Last Admin: 11/14/18 08:36 Dose: 25 mg Mupirocin (Bactroban Ointment) 0 gm TOP BID [facility] Last Admin: 11/13/18 17:46 Dose: 1 applic Nicotine (Nicoderm Cq) 1 patch TD DAILY [facility] Last Admin: 11/14/18 10:22 Dose: 1 patch Vitamin A (Vitamin A & D Oint Ud Foilpak) 1 ea TOP BID [facility] Last Admin: 11/14/18 10:21 Dose: 1 ea Ziprasidone (Geodon Cap) 20 mg PO HS [facility]; Protocol Last Admin: 11/13/18 21:56 Dose: 20 mg Ziprasidone (Geodon Cap) 20 mg PO DAILY [facility]; Protocol Last Admin: 11/14/18 10:22 Dose: 20 mg Zolpidem Tartrate (Ambien) 5 mg PO HS [facility]; Protocol Last Admin: 11/13/18 21:56 Dose: 5 mg - Labs Labs: 11/14/18 06:00 11/14/18 06:00 PT 12.7 SECONDS (9.4-12.5) H 11/02/18 13:38 INR 1.12 11/02/18 13:38 APTT 39.3 Seconds (26.9-38.3) H 11/02/18 13:38 Attending/Attestation - Attestation I have personally seen and examined this patient.: Yes I have fully participated in the care of the patient.: Yes I have reviewed all pertinent clinical information, including history, physical exam and plan: Yes Notes (Text): 11/14/18 16:41 Ischemic stroke with hemorrhagic component DM Severe agitation HTN Gram +ve Bacteremia Blood culture grew staph aureus. Pt started on Vanco, cefepime and daptomycin Will order a 2D echo ID on board Pt evaluated by neuro and neurosurgery. No intervention necessary Pt evaluated by psych for severe agitation c/w RISS
--- NOTE | 2018-11-14 15:12 | PN ---
DATE: 11/14/2018 SUBJECTIVE: Labs came back positive for gram positive cocci in blood as well as staph aureus in blood, which is most likely related to the patient mental status. As per nursing staff, the patient had rough night. The patient needed to have like p.r.n. medications. During this sign writer hand morning round, the patient was deeply sleeping. This sign writer hand was not able to wake the patient up. In regards of the mental status: the patient was opening his eyes and falling back asleep. As per nursing report, the patient she had tendency of climbing off the bed and appeared to be restless. Please see notes for more detailed information. Labs reviewed. The patient was started on vancomycin and cefepime. MENTAL STATUS EXAM The patient was deeply sleeping, not in acute distress. 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 The patient had stroke. The patient currently is in delirium phase, which seems to be hypoactive, hyperactive since sepsis. PLAN:: Continue current management. Continue current medication. We will follow up and advise accordingly. Should they have any questions give me a call back. Savanah Galarza MD [facility]
--- NOTE | 2018-11-14 17:09 | CP.PCM.PN ---
Subjective - Date & Time of Evaluation Date of Evaluation: 11/14/18 Time of Evaluation: 10:25 - Subjective Subjective: Patient has no fevers, not in distress, denies headache currently, still feels weak. Objective - Vital Signs/Intake and Output Vital Signs (last 24 hours): Temp Pulse Resp BP Pulse Ox 97.6 F 90 20 131/83 96 11/14/18 07:52 11/14/18 08:36 11/14/18 07:52 11/14/18 08:36 11/14/18 07:52 Intake and Output: 11/14/18 11/14/18 06:59 18:59 Intake Total 0 0 Output Total 200 200 Balance -200 -200 - Medications Medications: Current Medications Acetaminophen (Tylenol 325mg Tab) 650 mg PO Q6H PRN PRN Reason: Pain, moderate (4-7) Last Admin: 11/13/18 17:48 Dose: 650 mg Acetaminophen (Tylenol 325 Mg Supp) 325 mg RC Q6H PRN PRN Reason: Fever >100.4 F Alprazolam (Xanax) 0.5 mg PO BID [facility]; Protocol Stop: 11/16/18 18:01 Last Admin: 11/14/18 10:21 Dose: 0.5 mg Aspirin (Aspirin Chewable) 81 mg PO DAILY [facility] Last Admin: 11/14/18 10:21 Dose: 81 mg Atorvastatin Calcium (Lipitor) 40 mg PO DIN [facility] Last Admin: 11/13/18 17:53 Dose: 40 mg Clopidogrel Bisulfate (Plavix) 75 mg PO DAILY [facility] Last Admin: 11/14/18 10:22 Dose: 75 mg Dextrose (Dextrose 50% Inj) 0 ml IV STAT PRN; Protocol PRN Reason: Hypoglycemia Protocol Famotidine (Pepcid) 20 mg PO Q12 [facility] Last Admin: 11/14/18 10:22 Dose: 20 mg Dextrose (Dextrose 5% In Water 1000 Ml) 1,000 mls @ 0 mls/hr IV .Q0M PRN; Protocol PRN Reason: Hypoglycemia Protocol Cefepime HCl (Maxipime 1gm) 1 gm in 100 mls @ 100 mls/hr IVPB Q8 [facility]; Protocol Stop: 11/22/18 22:01 Last Admin: 11/14/18 13:54 Dose: 100 mls/hr Daptomycin 440 mg/ Sodium (Chloride) 100 mls @ 200 mls/hr IV Q24H [facility] Stop: 12/12/18 10:01 Last Admin: 11/14/18 10:00 Dose: 200 mls/hr Insulin Human Lispro (Humalog Med) 0 units SC ACHS [facility]; Protocol Last Admin: 11/14/18 13:55 Dose: 2 units Lorazepam (Ativan) 2 mg IVP Q6H PRN; Protocol PRN Reason: Agitation Last Admin: 11/14/18 08:35 Dose: 2 mg Metoprolol Tartrate (Lopressor) 25 mg PO BRKDIN [facility] Last Admin: 11/14/18 08:36 Dose: 25 mg Mupirocin (Bactroban Ointment) 0 gm TOP BID [facility] Last Admin: 11/13/18 17:46 Dose: 1 applic Nicotine (Nicoderm Cq) 1 patch TD DAILY [facility] Last Admin: 11/14/18 10:22 Dose: 1 patch Vitamin A (Vitamin A & D Oint Ud Foilpak) 1 ea TOP BID [facility] Last Admin: 11/14/18 10:21 Dose: 1 ea Ziprasidone (Geodon Cap) 20 mg PO HS [facility]; Protocol Last Admin: 11/13/18 21:56 Dose: 20 mg Ziprasidone (Geodon Cap) 20 mg PO DAILY [facility]; Protocol Last Admin: 11/14/18 10:22 Dose: 20 mg Zolpidem Tartrate (Ambien) 5 mg PO HS [facility]; Protocol Last Admin: 11/13/18 21:56 Dose: 5 mg - Labs Labs: 11/14/18 06:00 11/14/18 06:00 PT 12.7 SECONDS (9.4-12.5) H 11/02/18 13:38 INR 1.12 11/02/18 13:38 APTT 39.3 Seconds (26.9-38.3) H 11/02/18 13:38 - Constitutional Appears: Chronically Ill - Head Exam Head Exam: NORMAL INSPECTION - Respiratory Exam Respiratory Exam: Decreased Breath Sounds - Cardiovascular Exam Cardiovascular Exam: +S1, +S2 - GI/Abdominal Exam GI & Abdominal Exam: Soft. absent: Tenderness Assessment and Plan - Assessment and Plan (Free Text) Plan: Asssessment sepsis due to Staph aureus bacteremia in this patient with right parietal and temporal lobe infarct with hemorrhagic conversion, suspicious for endocarditis in this patient with right upper arm cellulitis CVA DM HTN dyslipidemia depression significant smoking Plan will continue Cefepime for now and switch Vancomycin to Daptomycin pending repeat cx, 2D echo; would recommend CAR[facility] and Cardiology consult will monitor clinically
[2018-11-15] MEDS: Cefepime 1gm in NS 100ml 1 GM/100 ML BAG IVPB SCH ×3 (05:38→21:35)
--- NOTE | 2018-11-15 08:35 | CP.PCM.PN ---
<Uziel Quiroga - Last Filed: 11/15/18 12:03> Subjective - Date & Time of Evaluation Date of Evaluation: 11/15/18 Time of Evaluation: 08:35 - Subjective Subjective: PGY1 Medicine Progress Note for Dr. Conway Patient was seen and evaluated at bedside this morning. No acute events overnight. No new complaints. Patient is s/p echocardiogram this morning. Patient otherwise denies chest pain, shortness of breath, abdominal pain, headache, nausea, vomiting, and/or diarrhea. Objective - Vital Signs/Intake and Output Vital Signs (last 24 hours): Temp Pulse Resp BP Pulse Ox 97.8 F 82 20 133/83 94 L 11/15/18 08:04 11/15/18 08:04 11/15/18 08:04 11/15/18 08:04 11/15/18 08:04 Intake and Output: 11/15/18 11/15/18 06:59 18:59 Intake Total 0 Output Total 2 Balance -2 - Medications Medications: Current Medications Acetaminophen (Tylenol 325mg Tab) 650 mg PO Q6H PRN PRN Reason: Pain, moderate (4-7) Last Admin: 11/14/18 18:47 Dose: 650 mg Acetaminophen (Tylenol 325 Mg Supp) 325 mg RC Q6H PRN PRN Reason: Fever >100.4 F Alprazolam (Xanax) 0.5 mg PO BID [facility]; Protocol Stop: 11/16/18 18:01 Last Admin: 11/14/18 18:38 Dose: 0.5 mg Aspirin (Aspirin Chewable) 81 mg PO DAILY [facility] Last Admin: 11/14/18 10:21 Dose: 81 mg Atorvastatin Calcium (Lipitor) 40 mg PO DIN [facility] Last Admin: 11/14/18 18:39 Dose: 40 mg Clopidogrel Bisulfate (Plavix) 75 mg PO DAILY [facility] Last Admin: 11/14/18 10:22 Dose: 75 mg Dextrose (Dextrose 50% Inj) 0 ml IV STAT PRN; Protocol PRN Reason: Hypoglycemia Protocol Famotidine (Pepcid) 20 mg PO Q12 [facility] Last Admin: 11/14/18 21:56 Dose: 20 mg Dextrose (Dextrose 5% In Water 1000 Ml) 1,000 mls @ 0 mls/hr IV .Q0M PRN; Protocol PRN Reason: Hypoglycemia Protocol Cefepime HCl (Maxipime 1gm) 1 gm in 100 mls @ 100 mls/hr IVPB Q8 [facility]; Protocol Stop: 11/22/18 22:01 Last Admin: 11/15/18 05:38 Dose: 100 mls/hr Daptomycin 440 mg/ Sodium (Chloride) 100 mls @ 200 mls/hr IV Q24H [facility] Stop: 12/12/18 10:01 Last Admin: 11/14/18 10:00 Dose: 200 mls/hr Insulin Human Lispro (Humalog Med) 0 units SC ACHS [facility]; Protocol Last Admin: 11/14/18 21:54 Dose: Not Given Lorazepam (Ativan) 2 mg IVP Q6H PRN; Protocol PRN Reason: Agitation Last Admin: 11/14/18 08:35 Dose: 2 mg Metoprolol Tartrate (Lopressor) 25 mg PO BRKDIN [facility] Last Admin: 11/14/18 18:39 Dose: 25 mg Mupirocin (Bactroban Ointment) 0 gm TOP BID [facility] Last Admin: 11/13/18 17:46 Dose: 1 applic Nicotine (Nicoderm Cq) 1 patch TD DAILY [facility] Last Admin: 11/14/18 10:22 Dose: 1 patch Vitamin A (Vitamin A & D Oint Ud Foilpak) 1 ea TOP BID [facility] Last Admin: 11/14/18 18:38 Dose: Not Given Ziprasidone (Geodon Cap) 20 mg PO HS [facility]; Protocol Last Admin: 11/14/18 21:51 Dose: 20 mg Ziprasidone (Geodon Cap) 20 mg PO DAILY [facility]; Protocol Last Admin: 11/14/18 10:22 Dose: 20 mg Zolpidem Tartrate (Ambien) 5 mg PO HS [facility]; Protocol Last Admin: 11/14/18 21:50 Dose: 5 mg - Labs Labs: 11/14/18 06:00 11/14/18 06:00 PT 12.7 SECONDS (9.4-12.5) H 11/02/18 13:38 INR 1.12 11/02/18 13:38 APTT 39.3 Seconds (26.9-38.3) H 11/02/18 13:38 - Additional Findings Additional findings: - Constitutional Appears: Non-toxic - Head Exam Additional comments: Pt has L sided facial droop and is unable to puff out cheeks on L side. - Eye Exam Eye Exam: EOMI, Normal appearance, PERRL - Respiratory Exam Respiratory Exam: Clear to Ausculation Bilateral, NORMAL BREATHING PATTERN. absent: Accessory Muscle Use, Rales, Rhonchi, Wheezes, Respiratory Distress, Stridor - Cardiovascular Exam Cardiovascular Exam: RRR, +S1, +S2. absent: Gallop, Rubs - GI/Abdominal Exam GI & Abdominal Exam: Soft, Normal Bowel Sounds. absent: Firm, Guarding, Rigid, Tenderness - Extremities Exam Additional comments: Pt has no noted movement in LUE or LLE. - Back Exam Back Exam: NORMAL INSPECTION. absent: CVA tenderness (L), CVA tenderness (R) - Neurological Exam Neurological Exam: Alert, Awake Neuro motor strength exam: Left Upper Extremity: 0, Right Upper Extremity: 5, Left Lower Extremity: 0, Right Lower Extremity: 5 Additional comments: Cranial nerves: EOM's Intact: Normal, Tongue Deviation: Normal Sensory exam: Lower Extremity 2 Point Discrimination: Abnormal Left, Lower Extremity Light Touch: Abnormal Left, Lower Extremity Pin Prick: Abnormal Left, Lower Extremity Temperature: Abnormal Left, Upper Extremity 2 Point Discrimination: Abnormal Left, Upper Extremity Light Touch: Abnormal Left, Upper Extremity Pin Prick: Abnormal Left, Upper Extremity Temperature: Abnormal Left Coma Scale Eye Opening: SPONTANEOUS Coma Scale Motor Response: OBEYS COMMANDS Coma Scale Verbal: Oriented Coma Scale Total: 15 - Psychiatric Exam Psychiatric exam: Normal Affect, Normal Mood - Skin Skin Exam: Dry, Normal Color, Warm Assessment and Plan - Assessment and Plan (Free Text) Assessment: Pt is a 53 yo M with pmhx of HTN, DM, HLD and ischemic CVA (07/22) who presented from psych floor for hemorrhagic stroke. MRI 11/01/18: Subacute to chronic involving R temporal and frontal parietal ischemic infarct with hemorrhagic component. Associated residual vasogenic edema. Hemosiderin ring present. Head and neck CT: 1. Critical stenosis origin R ICA. Greater than 75% stenosis origin L ICA. 2. Mod-severe multifocal stenosis R ICA cavernous and supreclinoid segment. No sig stenosis L cavernous and intracranial ICA. 3. Slight increase in stenosis of R M1 MCA. CT head 11/03: No change in large MCA distribution infarct, No evidence of midline shift. CT head:11/05 showed no signs of acute hemorrhage. Pt transferred out of ICU and on to floors. Pt is awaiting acceptance to Acute rehab per PT recs. 1:1 D/ariane. Patient had Gram + cocci in both blood cxs. Follow-up with SW regarding placement, as the Patient is newly on IV ABX. Plan: Hemorrhagic stroke - MRI 11/01/18: Subacute to chronic involving R temporal and frontal parietal ischemic infarct with hemorrhagic component. Associated residual vasogenic edema. Hemosiderin ring present. - Head and neck CT:11/02/18: 1. Critical stenosis origin R ICA. Greater than 75% stenosis origin L ICA. 2. Mod-severe multifocal stenosis R ICA cavernous and supreclinoid segment. No sig stenosis L cavernous and intracranial ICA. 3. Slight increase in stenosis of R M1 MCA. please refer to full report for additional details - CT head 11/03: No change in large MCA distribution infarct, No evidence of midline shift. - CT Head 11/05: No acute intracranial hemorrhage. Re-demonstration of large chronic R MCA territory infarct - Please refer to full report for details - Lipid Panel - Cholesterol - 164, LDL - 71, HDL - 35, T - Asa, plavix - Cont per neuro - Cont statin - Aspiration precautions - High fall risk - OOB w/ assistance - Head of bed elevation 30 - Neuro Q4 - VS Q4 - Neuro consult - Dr. Agudelo - Seroquel 25mg AM and 75mg QHS - Neurosurg Consult - Dr. Martinez - No neurosurgical intervention at this time - Neurointerventionalist consult - Dr. Cruz - No acute intervention at this time. - Psych Consult - Dr. Pavon - Ativan .5 PRN for agitation, Ambien 5mg qhs - PT eval - Acute Rehab Gram (+) Bacteremia: - Blood Cxs on 11/13 noted to be (+) for gram (+) cocci in both bottles - HIV pending - ID on board, Daptomycin, cefepime on board per ID recs - ECHO completed; pending report Hx of DM: - ISS - Medium - Finger sticks QACHS - Hypoglycemia protocol ordered PRN Hx of HTN: - Cont home metoprolol 25mg QHS - Q4 vital signs Hx of HLD: - Cont lipitor 40qd Hx of tobacco abuse: - Nicotine Patch PPx: GI: Pepcid DVT: SCDs Dispo: Pt still agitated. Pt had Gram + cocci in both blood cxs. Will follow-up with SW regarding placement, as the Patient is newly on IV ABX. 1:1 D/ariane. Case seen and discussed with Dr. Zoraida Quiroga PGY1 <Navi Conway - Last Filed: 11/15/18 15:09> Objective - Vital Signs/Intake and Output Vital Signs (last 24 hours): Temp Pulse Resp BP Pulse Ox 97.8 F 82 20 133/83 94 L 11/15/18 08:04 11/15/18 08:04 11/15/18 08:04 11/15/18 08:04 11/15/18 08:04 Intake and Output: 11/15/18 11/15/18 06:59 18:59 Intake Total 0 100 Output Total 2 Balance -2 100 - Medications Medications: Current Medications Acetaminophen (Tylenol 325mg Tab) 650 mg PO Q6H PRN PRN Reason: Pain, moderate (4-7) Last Admin: 11/14/18 18:47 Dose: 650 mg Acetaminophen (Tylenol 325 Mg Supp) 325 mg RC Q6H PRN PRN Reason: Fever >100.4 F Alprazolam (Xanax) 0.5 mg PO BID [facility]; Protocol Stop: 11/16/18 18:01 Last Admin: 11/15/18 10:56 Dose: 0.5 mg Aspirin (Aspirin Chewable) 81 mg PO DAILY [facility] Last Admin: 11/15/18 10:55 Dose: 81 mg Atorvastatin Calcium (Lipitor) 40 mg PO DIN [facility] Last Admin: 11/14/18 18:39 Dose: 40 mg Clopidogrel Bisulfate (Plavix) 75 mg PO DAILY [facility] Last Admin: 11/15/18 10:56 Dose: 75 mg Dextrose (Dextrose 50% Inj) 0 ml IV STAT PRN; Protocol PRN Reason: Hypoglycemia Protocol Famotidine (Pepcid) 20 mg PO Q12 [facility] Last Admin: 11/15/18 10:55 Dose: 20 mg Dextrose (Dextrose 5% In Water 1000 Ml) 1,000 mls @ 0 mls/hr IV .Q0M PRN; Protocol PRN Reason: Hypoglycemia Protocol Cefepime HCl (Maxipime 1gm) 1 gm in 100 mls @ 100 mls/hr IVPB Q8 [facility]; Protocol Stop: 11/22/18 22:01 Last Admin: 11/15/18 05:38 Dose: 100 mls/hr Daptomycin 440 mg/ Sodium (Chloride) 100 mls @ 200 mls/hr IV Q24H [facility] Stop: 12/12/18 10:01 Last Admin: 11/15/18 10:56 Dose: 200 mls/hr Insulin Human Lispro (Humalog Med) 0 units SC ACHS [facility]; Protocol Last Admin: 11/15/18 12:00 Dose: 3 units Lorazepam (Ativan) 2 mg IVP Q6H PRN; Protocol PRN Reason: Agitation Last Admin: 11/14/18 08:35 Dose: 2 mg Metoprolol Tartrate (Lopressor) 25 mg PO BRKDIN [facility] Last Admin: 11/15/18 11:03 Dose: 25 mg Mupirocin (Bactroban Ointment) 0 gm TOP BID [facility] Last Admin: 11/15/18 10:56 Dose: 1 applic Nicotine (Nicoderm Cq) 1 patch TD DAILY [facility] Last Admin: 11/15/18 10:56 Dose: 1 patch Vitamin A (Vitamin A & D Oint Ud Foilpak) 1 ea TOP BID [facility] Last Admin: 11/15/18 10:56 Dose: 1 ea Ziprasidone (Geodon Cap) 20 mg PO HS [facility]; Protocol Last Admin: 11/14/18 21:51 Dose: 20 mg Ziprasidone (Geodon Cap) 20 mg PO DAILY [facility]; Protocol Last Admin: 11/15/18 10:55 Dose: 20 mg Zolpidem Tartrate (Ambien) 5 mg PO HS [facility]; Protocol Last Admin: 11/14/18 21:50 Dose: 5 mg - Labs Labs: 11/14/18 06:00 11/14/18 06:00 PT 12.7 SECONDS (9.4-12.5) H 11/02/18 13:38 INR 1.12 11/02/18 13:38 APTT 39.3 Seconds (26.9-38.3) H 11/02/18 13:38 Attending/Attestation - Attestation I have personally seen and examined this patient.: Yes I have fully participated in the care of the patient.: Yes I have reviewed all pertinent clinical information, including history, physical exam and plan: Yes Notes (Text): 11/15/18 15:05 53 year old male with past medical history of hypertension, diabetes, and CVA (07/2018) who was initially admitted under psychiatric unit for depression. He was transferred to medical floor for +MRI findings showing subacute to chronic ischemic infarction involving the right frontal, temporal and parietal lobes with accompanying hemorrhagic component. CTA head/neck showed critical stenosis of right ICA, >75% stenosis of left ICA and moderate to severe multifocal stenosis of the cavernous and supraclinoid segments of right ICA. He was transferred to ICU for close ICU monitoring. Neurology has following. Serial CT heads have been stable. Patient is on aspirin, plavix and statin. Neurosurgery and vascular evaluations were also appreciated; no acute intervention planned. Recommended outpatient follow up. Patient has on and off periods of agitation for which psychiatry is following. He is on xanax and ativan prn. Continue with iv antibiotics for MRSA bacteremia. Echocardiogram was done t milly. Case discussed with ID who recommended cardiology evaluation for CARLY to rule out endocarditis. PT is following; recommended rehab. Navi Conway MD Hospitalist.
[2018-11-15] MEDS: Vitamins A & D Oint UD Foilpak TOP SCH ×2 (10:56→17:32)
[2018-11-15] MEDS: Mupirocin 2% Ointment 15 GM TUBE TOP SCH ×2 (10:56→17:31)
[2018-11-15] MEDS: Insulin Lispro (humaLOG) MEDIUM Coverage SC SCH ×4 (10:57→21:36)
--- NOTE | 2018-11-15 13:34 | PN ---
DATE: 11/15/2018 SUBJECTIVE: The patient was followed up today. The patient is 53-year-old male, multiple medical issues. Two [id number] strokes. The patient had one previous psychiatric admissions for depressive symptoms which related to stroke. While being in the psychiatric inpatient unit, the patient started to develop visual hallucinations, neurologist evaluated the patient and the patient found to have new stroke and was transferred to the emergency room and subsequently ICU and then downgraded on the medical side. While being on the medical side, the patient has persistent delirium and right now the patient was found to have MRSA in his blood. The patient has periods of agitation and restless behavior, majority of the time is over nighttime and symptoms are related to delirium stage which the patient is persistently in. The patient was seen today, the patient came from echocardiogram. The patient appears to be tearful. The patient expresses feeling of hopelessness and helplessness about the medical condition and situation. The patient was asking if infection in my blood will kill me, this policy writer typist educated the patient about plan and about antibiotics what the patient is currently on. The patient did not express any thoughts of killing himself and supportive therapy was provided, the patient was receptive. PHYSICAL EXAMINATION VITAL SIGNS: Reviewed. Temperature 97.8, pulse is 82, blood pressure 133/83, respiration 26 and oxygen saturation is 94%. MEDICATIONS: Reviewed. The patient is on Tylenol, Xanax 0.5 mg twice a day, aspirin, Lipitor, Maxipime, Plavix, dextrose, Pepcid, Ativan, Lopressor, Bactroban, Nicoderm, vitamin A, Geodon 20 mg at the nighttime and 20 mg daily and Ambien 5 mg at the nighttime. LABORATORY DATA: Reviewed. As I tried to mention before, the patient was found to have sepsis, MRSA in his blood as well as Gram-positive cocci in his blood. MENTAL STATUS EXAMINATION: As this policy writer typist described above. The patient was tearful, intermittent eye contact. Mood described as, do you think that infection my blood will kill me? Thought process seems to be concrete. Thought content, the patient had episodes of confusion. The patient reported that for whatever reason, the patient was taken from his house, the patient did not know that he is in the hospital. Insight and judgment limited. Impulses are unpredictable. IMPRESSION: Delirium, which is hypoactive and hyperactive. The patient has mood disorder due to general medical condition. PLAN: Continue current management. Continue current medication. The patient did not tolerate Seroquel well. While on the Seroquel, the patient had episodes of agitation and restless behavior. The patient tolerated Geodon better. The patient is on Xanax, this needs to be continued and Ambien for insomnia. We will continue seeing the patient and there is no acute psychiatric issues. Will follow up on this patient every other day. Should they have any questions give me a call back. Thank you very much for letting me participate in care of your patient. Savanah Galarza MD MTDD
--- NOTE | 2018-11-15 14:03 | CP.PCM.PN ---
Subjective - Date & Time of Evaluation Date of Evaluation: 11/15/18 Time of Evaluation: 12:00 - Subjective Subjective: Patient is sleepy but arousable, no fevers overnight, not in distress. Objective - Vital Signs/Intake and Output Vital Signs (last 24 hours): Temp Pulse Resp BP Pulse Ox 97.6 F 90 20 131/83 96 11/14/18 07:52 11/14/18 08:36 11/14/18 07:52 11/14/18 08:36 11/14/18 07:52 Intake and Output: 11/14/18 11/14/18 06:59 18:59 Intake Total 0 0 Output Total 200 200 Balance -200 -200 - Medications Medications: Current Medications Acetaminophen (Tylenol 325mg Tab) 650 mg PO Q6H PRN PRN Reason: Pain, moderate (4-7) Last Admin: 11/13/18 17:48 Dose: 650 mg Acetaminophen (Tylenol 325 Mg Supp) 325 mg RC Q6H PRN PRN Reason: Fever >100.4 F Alprazolam (Xanax) 0.5 mg PO BID [facility]; Protocol Stop: 11/16/18 18:01 Last Admin: 11/14/18 10:21 Dose: 0.5 mg Aspirin (Aspirin Chewable) 81 mg PO DAILY [facility] Last Admin: 11/14/18 10:21 Dose: 81 mg Atorvastatin Calcium (Lipitor) 40 mg PO DIN [facility] Last Admin: 11/13/18 17:53 Dose: 40 mg Clopidogrel Bisulfate (Plavix) 75 mg PO DAILY [facility] Last Admin: 11/14/18 10:22 Dose: 75 mg Dextrose (Dextrose 50% Inj) 0 ml IV STAT PRN; Protocol PRN Reason: Hypoglycemia Protocol Famotidine (Pepcid) 20 mg PO Q12 [facility] Last Admin: 11/14/18 10:22 Dose: 20 mg Dextrose (Dextrose 5% In Water 1000 Ml) 1,000 mls @ 0 mls/hr IV .Q0M PRN; Protocol PRN Reason: Hypoglycemia Protocol Cefepime HCl (Maxipime 1gm) 1 gm in 100 mls @ 100 mls/hr IVPB Q8 [facility]; Protocol Stop: 11/22/18 22:01 Last Admin: 11/14/18 13:54 Dose: 100 mls/hr Daptomycin 440 mg/ Sodium (Chloride) 100 mls @ 200 mls/hr IV Q24H [facility] Stop: 12/12/18 10:01 Last Admin: 11/14/18 10:00 Dose: 200 mls/hr Insulin Human Lispro (Humalog Med) 0 units SC ACHS [facility]; Protocol Last Admin: 11/14/18 13:55 Dose: 2 units Lorazepam (Ativan) 2 mg IVP Q6H PRN; Protocol PRN Reason: Agitation Last Admin: 11/14/18 08:35 Dose: 2 mg Metoprolol Tartrate (Lopressor) 25 mg PO BRKDIN [facility] Last Admin: 11/14/18 08:36 Dose: 25 mg Mupirocin (Bactroban Ointment) 0 gm TOP BID [facility] Last Admin: 11/13/18 17:46 Dose: 1 applic Nicotine (Nicoderm Cq) 1 patch TD DAILY [facility] Last Admin: 11/14/18 10:22 Dose: 1 patch Vitamin A (Vitamin A & D Oint Ud Foilpak) 1 ea TOP BID [facility] Last Admin: 11/14/18 10:21 Dose: 1 ea Ziprasidone (Geodon Cap) 20 mg PO HS [facility]; Protocol Last Admin: 11/13/18 21:56 Dose: 20 mg Ziprasidone (Geodon Cap) 20 mg PO DAILY [facility]; Protocol Last Admin: 11/14/18 10:22 Dose: 20 mg Zolpidem Tartrate (Ambien) 5 mg PO HS [facility]; Protocol Last Admin: 11/13/18 21:56 Dose: 5 mg - Labs Labs: 11/14/18 06:00 11/14/18 06:00 PT 12.7 SECONDS (9.4-12.5) H 11/02/18 13:38 INR 1.12 11/02/18 13:38 APTT 39.3 Seconds (26.9-38.3) H 11/02/18 13:38 - Constitutional Appears: Chronically Ill - Head Exam Head Exam: NORMAL INSPECTION - Respiratory Exam Respiratory Exam: Decreased Breath Sounds - Cardiovascular Exam Cardiovascular Exam: +S1, +S2 - GI/Abdominal Exam GI & Abdominal Exam: Soft. absent: Tenderness Assessment and Plan - Assessment and Plan (Free Text) Plan: Asssessment sepsis due to Methicillin-resistant Staph aureus bacteremia in this patient with right parietal and temporal lobe infarct with hemorrhagic conversion, suspicious for endocarditis in this patient with right upper arm cellulitis CVA DM HTN dyslipidemia depression significant smoking Plan will discontinue Cefepime for now and continue Daptomycin pending repeat blood cx, 2D echo; would recommend CARLY and Cardiology consult - discussed this with Dr. Conway will continue to monitor clinically
--- NOTE | 2018-11-15 17:47 | CARD ---
APPROVED REPORT Date of service: 11/15/2018 EXAM: Two-dimensional and M-mode echocardiogram with Doppler and color Doppler. INDICATION Infection:Rule out subacute bacterial endocarditis 2D DIMENSIONS Left Atrium (2D)3.1 (1.6-4.0cm)IVSd1.2 (0.7-1.1cm) LVDd3.8 (3.9-5.9cm)PWd1.2 (0.7-1.1cm) LVDs2.7 (2.5-4.0cm)FS (%) 29.4 % LVEF (%)57.0 (>50%) M-Mode DIMENSIONS Aortic Root3.00 (2.2-3.7cm)Aortic Cusp Exc.1.40 (1.5-2.0cm) Aortic Valve AoV Peak [id number]/Enoch Peak GR.8mmHg Mitral Valve E/A ratio0.0 TDI E/Lateral E'0.0E/Medial E'0.0 Tricuspid Valve TR Peak [id number] [id number] Peak Gr.22mmHg [id number] LEFT VENTRICLE The left ventricle is normal size. There is mild concentric left ventricular hypertrophy. The left ventricular function is normal. The left ventricular ejection fraction is within the normal range. There is normal LV segmental wall motion. RIGHT VENTRICLE The right ventricle is normal size. The right ventricular systolic function is normal. ATRIA The left atrium size is normal. The right atrium size is normal. The interatrial septum is intact with no evidence for an atrial septal defect. AORTIC VALVE The aortic valve is moderately sclerotic. No aortic regurgitation is present. There is no aortic valvular stenosis. MITRAL VALVE The mitral valve is normal in structure. There is no mitral valve regurgitation noted. TRICUSPID VALVE The tricuspid valve is normal in structure. There is no tricuspid valve regurgitation noted. PULMONIC VALVE The pulmonary valve is normal in structure. GREAT VESSELS The aortic root is normal in size. The IVC is normal in size and collapses >50% with inspiration. PERICARDIAL EFFUSION There is no pleural effusion. There is no pericardial effusion. <Conclusion> Normal chamber size. Normal LV systolic function. Mild concentric LVH. Sclerotic aortic valve, cannot exclude vegetation. If clinical suspicion for endocarditis is high, consider CARLY imaging.
[2018-11-16] MEDS: Cefepime 1gm in NS 100ml 1 GM/100 ML BAG IVPB SCH ×3 (05:07→22:34)
[2018-11-16 06:27] LABS: BASO # 0.04 K/mm3 (0.0-2.0); BASO % 0.6 % (0.0-3.0); EOS # 0.3 (0.0-0.7); EOS % 4.7 % (1.5-5.0); HEMOGLOBIN 11.1 g/dL (14.0-18.0); LYMPH # 2.1 (1.2-3.4); LYMPH % 30.7 % (22.0-35.0); MEAN CELL VOLUME 84.7 fl (80.0-105.0); MEAN CORPUSCULAR HEMOGLOBIN 26.6 pg (25.0-35.0); MEAN CORPUSCULAR HGB CONC 31.4 g/dl (31.0-37.0); MEAN PLATELET VOLUME 9.6 fl (7.0-11.0); MONO # 0.5 (0.1-0.6); MONO % 7.1 % (1.0-6.0); RBC 4.18 10^6/uL (3.5-6.1); RED CELL DISTRIBUTION WIDTH 15.3 % (11.5-14.5); WHITE BLOOD COUNT 6.8 10^3/uL (4.5-11.0)
[2018-11-16 06:41] LABS: ALB/GLOB RATIO 1.2 (1.1-1.8); ALT/SGPT 26 U/L (7-56); AST/SGOT 27 U/L (17-59); BLOOD UREA NITROGEN 15 mg/dL (7-21); CALCIUM 9.5 mg/dL (8.4-10.5); GFR NON-AFRICAN AMERICAN > 60
[2018-11-16] MEDS: Insulin Lispro (humaLOG) MEDIUM Coverage SC SCH ×4 (07:30→22:34)
--- NOTE | 2018-11-16 09:12 | CP.PCM.PN ---
<Uziel Quiroga - Last Filed: 11/16/18 12:49> Subjective - Date & Time of Evaluation Date of Evaluation: 11/16/18 Time of Evaluation: 09:12 - Subjective Subjective: PGY1 Medicine Progress Note for Dr. Conway Patient was seen and evaluated at bedside this morning, was sleeping but was easily woken up. Patient denies hallucinations. Patient's girlfriend is at bedside. Per Nurse, Patient had mild agitation. No new complaints. Patient otherwise denies chest pain, shortness of breath, abdominal pain, headache, nausea, vomiting, and/or diarrhea. Objective - Vital Signs/Intake and Output Vital Signs (last 24 hours): Temp Pulse Resp BP Pulse Ox 97.5 F L 84 20 136/85 97 11/16/18 08:15 11/16/18 08:15 11/16/18 08:15 11/16/18 08:15 11/16/18 08:15 Intake and Output: 11/16/18 11/16/18 06:59 18:59 Intake Total 360 Output Total 400 Balance -40 - Medications Medications: Current Medications Acetaminophen (Tylenol 325mg Tab) 650 mg PO Q6H PRN PRN Reason: Pain, moderate (4-7) Last Admin: 11/14/18 18:47 Dose: 650 mg Acetaminophen (Tylenol 325 Mg Supp) 325 mg RC Q6H PRN PRN Reason: Fever >100.4 F Alprazolam (Xanax) 0.5 mg PO BID [facility]; Protocol Stop: 11/16/18 18:01 Last Admin: 11/15/18 17:31 Dose: 0.5 mg Aspirin (Aspirin Chewable) 81 mg PO DAILY [facility] Last Admin: 11/15/18 10:55 Dose: 81 mg Atorvastatin Calcium (Lipitor) 40 mg PO DIN [facility] Last Admin: 11/15/18 17:31 Dose: 40 mg Clopidogrel Bisulfate (Plavix) 75 mg PO DAILY [facility] Last Admin: 11/15/18 10:56 Dose: 75 mg Dextrose (Dextrose 50% Inj) 0 ml IV STAT PRN; Protocol PRN Reason: Hypoglycemia Protocol Famotidine (Pepcid) 20 mg PO Q12 [facility] Last Admin: 11/15/18 10:55 Dose: 20 mg Dextrose (Dextrose 5% In Water 1000 Ml) 1,000 mls @ 0 mls/hr IV .Q0M PRN; Protocol PRN Reason: Hypoglycemia Protocol Cefepime HCl (Maxipime 1gm) 1 gm in 100 mls @ 100 mls/hr IVPB Q8 [facility]; Protocol Stop: 11/22/18 22:01 Last Admin: 11/16/18 05:07 Dose: 100 mls/hr Daptomycin 440 mg/ Sodium (Chloride) 100 mls @ 200 mls/hr IV Q24H [facility] Stop: 12/12/18 10:01 Last Admin: 11/15/18 10:56 Dose: 200 mls/hr Insulin Human Lispro (Humalog Med) 0 units SC ACHS [facility]; Protocol Last Admin: 11/15/18 21:36 Dose: Not Given Lorazepam (Ativan) 2 mg IVP Q6H PRN; Protocol PRN Reason: Agitation Last Admin: 11/15/18 23:23 Dose: 2 mg Metoprolol Tartrate (Lopressor) 25 mg PO BRKDIN [facility] Last Admin: 11/15/18 17:31 Dose: 25 mg Mupirocin (Bactroban Ointment) 0 gm TOP BID [facility] Last Admin: 11/15/18 17:31 Dose: 1 applic Nicotine (Nicoderm Cq) 1 patch TD DAILY [facility] Last Admin: 11/15/18 10:56 Dose: 1 patch Vitamin A (Vitamin A & D Oint Ud Foilpak) 1 ea TOP BID [facility] Last Admin: 11/15/18 17:32 Dose: 1 ea Ziprasidone (Geodon Cap) 20 mg PO HS [facility]; Protocol Last Admin: 11/15/18 21:35 Dose: 20 mg Ziprasidone (Geodon Cap) 20 mg PO DAILY [facility]; Protocol Last Admin: 11/15/18 10:55 Dose: 20 mg Zolpidem Tartrate (Ambien) 5 mg PO HS [facility]; Protocol Last Admin: 11/15/18 21:34 Dose: 5 mg - Labs Labs: 11/16/18 06:00 11/16/18 06:00 PT 12.7 SECONDS (9.4-12.5) H 11/02/18 13:38 INR 1.12 11/02/18 13:38 APTT 39.3 Seconds (26.9-38.3) H 11/02/18 13:38 - Additional Findings Additional findings: - Constitutional Appears: Non-toxic - Head Exam Additional comments: Patient has L sided facial droop and is unable to puff out cheeks on L side. - Eye Exam Eye Exam: EOMI, Normal appearance, PERRL - Respiratory Exam Respiratory Exam: Clear to Ausculation Bilateral, decreased breath sounds. absent: Accessory Muscle Use, Rales, Rhonchi, Wheezes, Respiratory Distress, S tridor - Cardiovascular Exam Cardiovascular Exam: RRR, +S1, +S2. absent: Gallop, Rubs - GI/Abdominal Exam GI & Abdominal Exam: Soft, Normal Bowel Sounds. absent: Firm, Guarding, Rigid, Tenderness - Extremities Exam Additional comments: Patient has no noted movement in LUE or LLE. - Back Exam Back Exam: NORMAL INSPECTION. absent: CVA tenderness (L), CVA tenderness (R) - Neurological Exam Neurological Exam: Alert, Awake Neuro motor strength exam: Left Upper Extremity: 0, Right Upper Extremity: 5, Left Lower Extremity: 0, Right Lower Extremity: 5 Additional comments: Cranial nerves: EOM's Intact: Normal, Tongue Deviation: Normal Sensory exam: Lower Extremity 2 Point Discrimination: Abnormal Left, Lower Extremity Light Touch: Abnormal Left, Lower Extremity Pin Prick: Abnormal Left, Lower Extremity Temperature: Abnormal Left, Upper Extremity 2 Point Discrimination: Abnormal Left, Upper Extremity Light Touch: Abnormal Left, Upper Extremity Pin Prick: Abnormal Left, Upper Extremity Temperature: Abnormal Left Coma Scale Eye Opening: SPONTANEOUS Coma Scale Motor Response: OBEYS COMMANDS Coma Scale Verbal: Oriented Coma Scale Total: 15 Assessment and Plan - Assessment and Plan (Free Text) Assessment: Patient is a 53 yo M with pmhx of HTN, DM, HLD and ischemic CVA (07/22) who presented from psych floor for hemorrhagic stroke. MRI 11/01/18: Subacute to chronic involving R temporal and frontal parietal ischemic infarct with hemorrhagic component. Associated residual vasogenic edema. Hemosiderin ring present. Head and neck CT: 1. Critical stenosis origin R ICA. Greater than 75% stenosis origin L ICA. 2. Mod-severe multifocal stenosis R ICA cavernous and supreclinoid segment. No sig stenosis L cavernous and intracranial ICA. 3. Slight increase in stenosis of R M1 MCA. CT head 11/03: No change in large MCA distribution infarct, No evidence of midline shift. CT head:11/05 showed no signs of acute hemorrhage. Patient transferred out of ICU and on to floors. Pt is awaiting acceptance to Acute rehab per PT recs. 1:1 D/ariane. Patient had Gram + cocci in both blood cxs. Patient is on antibiotics (Daptomycin 440mg IV Q24 and Cefepime 1gm IVPB Q8). Currently pending Cardiology evaluation regarding need for CARLY since vegetation could not be ruled out on ECHO, per report. Plan: Hemorrhagic stroke - MRI 11/01/18: Subacute to chronic involving R temporal and frontal parietal ischemic infarct with hemorrhagic component. Associated residual vasogenic edema. Hemosiderin ring present. - Head and neck CT:11/02/18: 1. Critical stenosis origin R ICA. Greater than 75% stenosis origin L ICA. 2. Mod-severe multifocal stenosis R ICA cavernous and supreclinoid segment. No sig stenosis L cavernous and intracranial ICA. 3. Sli ght increase in stenosis of R M1 MCA. please refer to full report for additional details - CT head 11/03: No change in large MCA distribution infarct, No evidence of midline shift. - CT Head 11/05: No acute intracranial hemorrhage. Re-demonstration of large chronic R MCA territory infarct - Please refer to full report for details - Lipid Panel - Cholesterol - 164, LDL - 71, HDL - 35, T - Asa, plavix - Cont per neuro - Cont statin - Aspiration precautions - High fall risk - OOB w/ assistance - Head of bed elevation 30 - Neuro Q4 - VS Q4 - Neuro consult - Dr. Agudelo - Seroquel 25mg AM and 75mg QHS - Neurosurg Consult - Dr. Martinez - No neurosurgical intervention at this time - Neurointerventionalist consult - Dr. Cruz - No acute intervention at this time. - Psych Consult - Dr. Pavon - Ativan .5 PRN for agitation, Ambien 5mg qhs - PT eval - Acute Rehab Gram (+) Bacteremia: - Blood Cxs on 11/13 noted to be (+) for gram (+) cocci in both bottles - HIV nonreactive - ID on board, Daptomycin, cefepime on board per ID recs Daptomycin 440mg IV Q24 and Cefepime 1gm IVPB Q8 - ECHO completed; cannot rule out vegetation (see full report) recommendation is CARLY Hx of DM: - ISS - Medium - Finger sticks QACHS - Hypoglycemia protocol ordered PRN Hx of HTN: - Cont home metoprolol 25mg QHS - Q4 vital signs Hx of HLD: - Cont lipitor 40qd Hx of tobacco abuse: - Nicotine Patch PPx: GI: Pepcid DVT: SCDs Dispo: Pt still agitated. Pt had Gram + cocci in both blood cxs. Pending Cardiology recommendation regarding CARLY to rule-out vegetation. Case seen and discussed with Dr. Zoraida Quiroga PGY1 <Navi Conway - Last Filed: 11/16/18 14:36> Objective - Vital Signs/Intake and Output Vital Signs (last 24 hours): Temp Pulse Resp BP Pulse Ox 97.5 F L 85 20 136/85 97 11/16/18 08:15 11/16/18 09:23 11/16/18 08:15 11/16/18 09:23 11/16/18 08:15 Intake and Output: 11/16/18 11/16/18 06:59 18:59 Intake Total 360 360 Output Total 400 400 Balance -40 -40 - Medications Medications: Current Medications Acetaminophen (Tylenol 325mg Tab) 650 mg PO Q6H PRN PRN Reason: Pain, moderate (4-7) Last Admin: 11/14/18 18:47 Dose: 650 mg Acetaminophen (Tylenol 325 Mg Supp) 325 mg RC Q6H PRN PRN Reason: Fever >100.4 F Alprazolam (Xanax) 0.5 mg PO BID [facility]; Protocol Stop: 11/16/18 18:01 Last Admin: 11/16/18 09:25 Dose: 0.5 mg Aspirin (Aspirin Chewable) 81 mg PO DAILY [facility] Last Admin: 11/16/18 09:22 Dose: 81 mg Atorvastatin Calcium (Lipitor) 40 mg PO DIN [facility] Last Admin: 11/15/18 17:31 Dose: 40 mg Clopidogrel Bisulfate (Plavix) 75 mg PO DAILY [facility] Last Admin: 11/16/18 09:25 Dose: 75 mg Dextrose (Dextrose 50% Inj) 0 ml IV STAT PRN; Protocol PRN Reason: Hypoglycemia Protocol Famotidine (Pepcid) 20 mg PO Q12 [facility] Last Admin: 11/16/18 09:25 Dose: 20 mg Dextrose (Dextrose 5% In Water 1000 Ml) 1,000 mls @ 0 mls/hr IV .Q0M PRN; Protocol PRN Reason: Hypoglycemia Protocol Cefepime HCl (Maxipime 1gm) 1 gm in 100 mls @ 100 mls/hr IVPB Q8 [facility]; Protocol Stop: 11/22/18 22:01 Last Admin: 11/16/18 05:07 Dose: 100 mls/hr Daptomycin 440 mg/ Sodium (Chloride) 100 mls @ 200 mls/hr IV Q24H [facility] Stop: 12/12/18 10:01 Last Admin: 11/16/18 10:56 Dose: 200 mls/hr Insulin Human Lispro (Humalog Med) 0 units SC ACHS [facility]; Protocol Last Admin: 11/15/18 21:36 Dose: Not Given Lorazepam (Ativan) 2 mg IVP Q6H PRN; Protocol PRN Reason: Agitation Last Admin: 11/15/18 23:23 Dose: 2 mg Metoprolol Tartrate (Lopressor) 25 mg PO BRKDIN [facility] Last Admin: 11/16/18 09:23 Dose: 25 mg Mupirocin (Bactroban Ointment) 0 gm TOP BID [facility] Last Admin: 11/15/18 17:31 Dose: 1 applic Nicotine (Nicoderm Cq) 1 patch TD DAILY [facility] Last Admin: 11/16/18 09:23 Dose: 1 patch Vitamin A (Vitamin A & D Oint Ud Foilpak) 1 ea TOP BID [facility] Last Admin: 11/16/18 09:25 Dose: 1 ea Ziprasidone (Geodon Cap) 20 mg PO HS [facility]; Protocol Last Admin: 11/15/18 21:35 Dose: 20 mg Ziprasidone (Geodon Cap) 20 mg PO DAILY [facility]; Protocol Last Admin: 11/16/18 09:22 Dose: 20 mg Zolpidem Tartrate (Ambien) 5 mg PO HS [facility]; Protocol Last Admin: 11/15/18 21:34 Dose: 5 mg - Labs Labs: 11/16/18 06:00 11/16/18 06:00 PT 12.7 SECONDS (9.4-12.5) H 11/02/18 13:38 INR 1.12 11/02/18 13:38 APTT 39.3 Seconds (26.9-38.3) H 11/02/18 13:38 Attending/Attestation - Attestation I have personally seen and examined this patient.: Yes I have fully participated in the care of the patient.: Yes I have reviewed all pertinent clinical information, including history, physical exam and plan: Yes Notes (Text): 11/16/18 14:28 53 year old male with past medical history of hypertension, diabetes, and CVA (07/2018) who was initially admitted under psychiatric unit for depression. He was transferred to medical floor for +MRI findings showing subacute to chronic ischemic infarction involving the right frontal, temporal and parietal lobes with accompanying hemorrhagic component. CTA head/neck showed critical stenosis of right ICA, >75% stenosis of left ICA and moderate to severe multifocal stenosis of the cavernous and supraclinoid segments of right ICA. Neurology has been following. Serial CT heads have been stable. Patient is on aspirin, plavix and statin. Neurosurgery and vascular evaluations were also appreciated; no acute intervention planned. Recommended outpatient follow up. Patient has on and off periods of agitation for which psychiatry is following. He is on xanax and ativan prn. Continue with iv antibiotics for MRSA bacteremia. Echocardiogram was reviewed as above. Cardiology consultation was requested to evaluate for possible CARLY to rule out endocarditis. PT is following; recommended rehab. Patient's girlfriend is present at bedside and questions were answered. Navi Conway MD Hospitalist.
[2018-11-16] MEDS: Vitamins A & D Oint UD Foilpak TOP SCH ×2 (09:25→18:16)
[2018-11-16] MEDS: Mupirocin 2% Ointment 15 GM TUBE TOP SCH ×2 (10:00→18:17)
--- NOTE | 2018-11-16 14:50 | CP.PCM.PN ---
Subjective - Date & Time of Evaluation Date of Evaluation: 11/16/18 Time of Evaluation: 10:10 - Subjective Subjective: Not in distress, no fevers, no headache, no abdominal pain, no diarrhea. Objective - Vital Signs/Intake and Output Vital Signs (last 24 hours): Temp Pulse Resp BP Pulse Ox 97.8 F 82 20 133/83 94 L 11/15/18 08:04 11/15/18 08:04 11/15/18 08:04 11/15/18 08:04 11/15/18 08:04 Intake and Output: 11/15/18 11/15/18 06:59 18:59 Intake Total 0 100 Output Total 2 Balance -2 100 - Medications Medications: Current Medications Acetaminophen (Tylenol 325mg Tab) 650 mg PO Q6H PRN PRN Reason: Pain, moderate (4-7) Last Admin: 11/14/18 18:47 Dose: 650 mg Acetaminophen (Tylenol 325 Mg Supp) 325 mg RC Q6H PRN PRN Reason: Fever >100.4 F Alprazolam (Xanax) 0.5 mg PO BID [facility]; Protocol Stop: 11/16/18 18:01 Last Admin: 11/15/18 10:56 Dose: 0.5 mg Aspirin (Aspirin Chewable) 81 mg PO DAILY [facility] Last Admin: 11/15/18 10:55 Dose: 81 mg Atorvastatin Calcium (Lipitor) 40 mg PO DIN [facility] Last Admin: 11/14/18 18:39 Dose: 40 mg Clopidogrel Bisulfate (Plavix) 75 mg PO DAILY [facility] Last Admin: 11/15/18 10:56 Dose: 75 mg Dextrose (Dextrose 50% Inj) 0 ml IV STAT PRN; Protocol PRN Reason: Hypoglycemia Protocol Famotidine (Pepcid) 20 mg PO Q12 [facility] Last Admin: 11/15/18 10:55 Dose: 20 mg Dextrose (Dextrose 5% In Water 1000 Ml) 1,000 mls @ 0 mls/hr IV .Q0M PRN; Pr otocol PRN Reason: Hypoglycemia Protocol Cefepime HCl (Maxipime 1gm) 1 gm in 100 mls @ 100 mls/hr IVPB Q8 [facility]; Protocol Stop: 11/22/18 22:01 Last Admin: 11/15/18 05:38 Dose: 100 mls/hr Daptomycin 440 mg/ Sodium (Chloride) 100 mls @ 200 mls/hr IV Q24H [facility] Stop: 12/12/18 10:01 Last Admin: 11/15/18 10:56 Dose: 200 mls/hr Insulin Human Lispro (Humalog Med) 0 units SC ACHS [facility]; Protocol Last Admin: 11/15/18 12:00 Dose: 3 units Lorazepam (Ativan) 2 mg IVP Q6H PRN; Protocol PRN Reason: Agitation Last Admin: 11/14/18 08:35 Dose: 2 mg Metoprolol Tartrate (Lopressor) 25 mg PO BRKDIN [facility] Last Admin: 11/15/18 11:03 Dose: 25 mg Mupirocin (Bactroban Ointment) 0 gm TOP BID [facility] Last Admin: 11/15/18 10:56 Dose: 1 applic Nicotine (Nicoderm Cq) 1 patch TD DAILY [facility] Last Admin: 11/15/18 10:56 Dose: 1 patch Vitamin A (Vitamin A & D Oint Ud Foilpak) 1 ea TOP BID [facility] Last Admin: 11/15/18 10:56 Dose: 1 ea Ziprasidone (Geodon Cap) 20 mg PO HS [facility]; Protocol Last Admin: 11/14/18 21:51 Dose: 20 mg Ziprasidone (Geodon Cap) 20 mg PO DAILY [facility]; Protocol Last Admin: 11/15/18 10:55 Dose: 20 mg Zolpidem Tartrate (Ambien) 5 mg PO HS [facility]; Protocol Last Admin: 11/14/18 21:50 Dose: 5 mg - Labs Labs: 11/14/18 06:00 11/14/18 06:00 PT 12.7 SECONDS (9.4-12.5) H 11/02/18 13:38 INR 1.12 11/02/18 13:38 APTT 39.3 Seconds (26.9-38.3) H 11/02/18 13:38 - Constitutional Appears: Chronically Ill - Head Exam Head Exam: NORMAL INSPECTION - Respiratory Exam Respiratory Exam: Decreased Breath Sounds - Cardiovascular Exam Cardiovascular Exam: +S1, +S2 - GI/Abdominal Exam GI & Abdominal Exam: Soft. absent: Tenderness Assessment and Plan - Assessment and Plan (Free Text) Plan: Asssessment sepsis due to Methicillin-resistant Staph aureus bacteremia in this patient with right parietal and temporal lobe infarct with hemorrhagic conversion, suspicious for endocarditis in this patient with right upper arm cellulitis CVA DM HTN dyslipidemia depression significant smoking Plan will discontinue Cefepime for now and continue Daptomycin; repeat blood cx are negative, 2D echo shows sclerotic aortic valve and cannot rule out vegetations; would recommend CARLY and Cardiology consult - discussed this with Dr. Conway and Cardiology is consulted will continue to monitor clinically
--- NOTE | 2018-11-16 19:26 | CON ---
DATE: 11/16/2018 CARDIOLOGY CONSULTATION REASON FOR CONSULTATION: Evaluate the patient for CARLY to rule out an aortic regurgitation. HISTORY OF PRESENT ILLNESS: The patient is a 53-year-old male with history of hypertension, diabetes mellitus, history of CVA, always left-sided hemiplegia, history of hyperlipidemia, and history of depression. The patient sustained his most recent CVA in July of last year. The patient was admitted because of visual hallucinations. The patient's blood cultures were positive for MRSA. Echocardiograph study was suspicious for an aortic regurgitation. MEDICATIONS: Ambien 5 mg at bedtime, aspirin 81 mg once a day, Ativan 2 mg intravenously every 6 hours p.r.n., daptomycin 440 mg intravenously daily, Geodon 20 mg once a day, Lopressor 25 mg twice a day, meropenem 1 g every 8 hours, nicotine patch, Plavix 75 once a day. PHYSICAL EXAMINATION: GENERAL: The patient is a middle-aged male, who does not appears to be in any distress at this time. VITAL SIGNS: Blood pressure 166/85, heart rate 84, temperature 97.5, and respirations 20. HEENT: Head is normocephalic. CHEST: Clear. HEART: S1 and S2 regular. ABDOMEN: Soft. EXTREMITIES: Left hemiparesis. LABORATORY DATA: Hemoglobin and hematocrit 11.1 and 35.4, white count and platelet count are within normal limits. Today's SMA-7 is sodium 139, potassium 3.8, chloride 104, CO2 80, , glucose 185, BUN 15, and creatinine 0.7. Most recent EKG on the of this month revealed sinus tachycardia at a rate of 103. Official echo report, normal left ventricular systolic function, mild concentric LVH, sclerotic aortic valve cannot rule out vegetation. The most recent CT scan on the of this month reveals a large area of and right frontal lobe and parietal lobe unchanged. Head and neck CT angio, critical stenosis of the right internal carotid artery. [id number] multifocal stenosis of the right internal carotid artery, and supraclinoid segments. Chest x-ray was unremarkable. ASSESSMENT: 1. Right frontoparietal lobe infarct with a residual . 2. Methicillin-resistant staphylococcus aureus bacteriemia. 3. Rule out aortic valve regurgitation. RECOMMENDATIONS: Continue current intravenous antibiotics. Transesophageal echo study was explained to the patient, who understood and agree for the procedure and the procedure will be scheduled for tomorrow a.m. and the patient will be kept empty after midnight. Aniceto Barger MD
[2018-11-17] MEDS: Cefepime 1gm in NS 100ml 1 GM/100 ML BAG IVPB SCH (06:03)
[2018-11-17 06:18] LABS: BASO # 0.06 K/mm3 (0.0-2.0); BASO % 0.9 % (0.0-3.0); EOS # 0.4 (0.0-0.7); EOS % 5.4 % (1.5-5.0); HEMOGLOBIN 12.2 g/dL (14.0-18.0); LYMPH # 2.6 (1.2-3.4); LYMPH % 39.4 % (22.0-35.0); MEAN CORPUSCULAR HGB CONC 31.8 g/dl (31.0-37.0); MEAN PLATELET VOLUME 9.5 fl (7.0-11.0); MONO # 0.5 (0.1-0.6); MONO % 7.1 % (1.0-6.0); RBC 4.52 10^6/uL (3.5-6.1); RED CELL DISTRIBUTION WIDTH 15.1 % (11.5-14.5); WHITE BLOOD COUNT 6.5 10^3/uL (4.5-11.0)
[2018-11-17 07:02] LABS: ALB/GLOB RATIO 1.1 (1.1-1.8); ALBUMIN 3.8 g/dL (3.0-4.8); ALT/SGPT 21 U/L (7-56); AST/SGOT 24 U/L (17-59); BLOOD UREA NITROGEN 15 mg/dL (7-21); CALCIUM 9.6 mg/dL (8.4-10.5); GFR NON-AFRICAN AMERICAN > 60
--- NOTE | 2018-11-17 07:48 | CP.PCM.PN ---
<Uziel Quiroga - Last Filed: 11/17/18 17:09> Subjective - Date & Time of Evaluation Date of Evaluation: 11/17/18 Time of Evaluation: 07:48 - Subjective Subjective: PGY1 Medicine Progress Note for Dr. Conway Patient was seen and evaluated at bedside this morning. Patient is S/P CARLY today. Tolerated well. Patient denies hallucinations. No new complaints. Patient otherwise denies chest pain, shortness of breath, abdominal pain, headache, nausea, vomiting, and/or diarrhea. Objective - Vital Signs/Intake and Output Vital Signs (last 24 hours): Temp Pulse Resp BP Pulse Ox 97.4 F L 72 18 145/86 97 11/17/18 06:00 11/17/18 06:00 11/17/18 06:00 11/17/18 06:00 11/17/18 06:00 Intake and Output: 11/17/18 11/17/18 06:59 18:59 Intake Total 0 Balance 0 - Medications Medications: Current Medications Acetaminophen (Tylenol 325mg Tab) 650 mg PO Q6H PRN PRN Reason: Pain, moderate (4-7) Last Admin: 11/14/18 18:47 Dose: 650 mg Acetaminophen (Tylenol 325 Mg Supp) 325 mg RC Q6H PRN PRN Reason: Fever >100.4 F Aspirin (Aspirin Chewable) 81 mg PO DAILY [facility] Last Admin: 11/16/18 09:22 Dose: 81 mg Atorvastatin Calcium (Lipitor) 40 mg PO DIN [facility] Last Admin: 11/16/18 18:21 Dose: 40 mg Clopidogrel Bisulfate (Plavix) 75 mg PO DAILY [facility] Last Admin: 11/16/18 09:25 Dose: 75 mg Dextrose (Dextrose 50% Inj) 0 ml IV STAT PRN; Protocol PRN Reason: Hypoglycemia Protocol Famotidine (Pepcid) 20 mg PO Q12 [facility] Last Admin: 11/16/18 22:35 Dose: 20 mg Dextrose (Dextrose 5% In Water 1000 Ml) 1,000 mls @ 0 mls/hr IV .Q0M PRN; Protocol PRN Reason: Hypoglycemia Protocol Cefepime HCl (Maxipime 1gm) 1 gm in 100 mls @ 100 mls/hr IVPB Q8 [facility]; Protocol Stop: 11/22/18 22:01 Last Admin: 11/17/18 06:03 Dose: 100 mls/hr Daptomycin 440 mg/ Sodium (Chloride) 100 mls @ 200 mls/hr IV Q24H [facility] Stop: 12/12/18 10:01 Last Admin: 11/16/18 10:56 Dose: 200 mls/hr Insulin Human Lispro (Humalog Med) 0 units SC ACHS [facility]; Protocol Last Admin: 11/16/18 22:34 Dose: Not Given Lorazepam (Ativan) 2 mg IVP Q6H PRN; Protocol PRN Reason: Agitation Last Admin: 11/17/18 06:00 Dose: 2 mg Metoprolol Tartrate (Lopressor) 25 mg PO BRKDIN [facility] Last Admin: 11/16/18 18:21 Dose: 25 mg Mupirocin (Bactroban Ointment) 0 gm TOP BID [facility] Last Admin: 11/16/18 18:17 Dose: 1 applic Nicotine (Nicoderm Cq) 1 patch TD DAILY [facility] Last Admin: 11/16/18 09:23 Dose: 1 patch Vitamin A (Vitamin A & D Oint Ud Foilpak) 1 ea TOP BID [facility] Last Admin: 11/16/18 18:16 Dose: 1 ea Ziprasidone (Geodon Cap) 20 mg PO HS [facility]; Protocol Last Admin: 11/16/18 22:33 Dose: 20 mg Ziprasidone (Geodon Cap) 20 mg PO DAILY [facility]; Protocol Last Admin: 11/16/18 09:22 Dose: 20 mg Zolpidem Tartrate (Ambien) 5 mg PO HS [facility]; Protocol Last Admin: 11/16/18 22:32 Dose: 5 mg - Labs Labs: 11/17/18 05:30 11/17/18 05:30 PT 12.7 SECONDS (9.4-12.5) H 11/02/18 13:38 INR 1.12 11/02/18 13:38 APTT 39.3 Seconds (26.9-38.3) H 11/02/18 13:38 - Additional Findings Additional findings: - Constitutional Appears: Non-toxic - Head Exam Additional comments: Patient has L sided facial droop and is unable to puff out cheeks on L side. - Eye Exam Eye Exam: EOMI, Normal appearance, PERRL - Respiratory Exam Respiratory Exam: Clear to Ausculation Bilateral, decreased breath sounds. absent: Accessory Muscle Use, Rales, Rhonchi, Wheezes, Respiratory Distress, Stridor - Cardiovascular Exam Cardiovascular Exam: RRR, +S1, +S2. absent: Gallop, Rubs - GI/Abdominal Exam GI & Abdominal Exam: Soft, Normal Bowel Sounds. absent: Firm, Guarding, Rigid, Tenderness - Extremities Exam Additional comments: Patient has no noted movement in LUE or LLE. - Back Exam Back Exam: NORMAL INSPECTION. absent: CVA tenderness (L), CVA tenderness (R) - Neurological Exam Neurological Exam: Alert, Awake Neuro motor strength exam: Left Upper Extremity: 0, Right Upper Extremity: 5, Left Lower Extremity: 0, Right Lower Extremity: 5 Additional comments: Cranial nerves: EOM's Intact: Normal, Tongue Deviation: Normal Sensory exam: Lower Extremity 2 Point Discrimination: Abnormal Left, Lower Extremity Light Touch: Abnormal Left, Lower Extremity Pin Prick: Abnormal Left, Lower Extremity Temperature: Abnormal Left, Upper Extremity 2 Point Discrimination: Abnormal Left, Upper Extremity Light Touch: Abnormal Left, Upper Extremity Pin Prick: Abnormal Left, Upper Extremity Temperature: Abnormal Left Coma Scale Eye Opening: SPONTANEOUS Coma Scale Motor Response: OBEYS COMMANDS Coma Scale Verbal: Oriented Coma Scale Total: 15 Assessment and Plan - Assessment and Plan (Free Text) Assessment: Patient is a 53 yo M with pmhx of HTN, DM, HLD and ischemic CVA (07/22) who presented from psych floor for hemorrhagic stroke. MRI 11/01/18: Subacute to chronic involving R temporal and frontal parietal ischemic infarct with hem orrhagic component. Associated residual vasogenic edema. Hemosiderin ring present. Head and neck CT: 1. Critical stenosis origin R ICA. Greater than 75% stenosis origin L ICA. 2. Mod-severe multifocal stenosis R ICA cavernous and supreclinoid segment. No sig stenosis L cavernous and intracranial ICA. 3. Slight increase in stenosis of R M1 MCA. CT head 11/03: No change in large MCA distribution infarct, No evidence of midline shift. CT head:11/05 showed no signs of acute hemorrhage. Patient transferred out of ICU and on to floors. Patient had Gram + cocci in both blood cxs. No evidence of endocarditis on CARLY done today in this patient with right upper arm cellulitis Per ID: discontinue Cefepime for now and continue Daptomycin - day 4 from first negative blood cx; repeat blood cx are negative; reviewed. Patient will need at least 2 weeks of antibiotics from the first negative blood cx. Midline insertion ordered for long-term antibiotic administration Will follow-up with SW regarding placement in [facility] with Midline /long-term antibiotic Plan: Gram (+) Staph Aureus Bacteremia: - Blood Cxs on 11/13 noted to be (+) for gram (+) cocci in both bottles - HIV nonreactive - Patient is S/P ECHO, however CARLY was performed to rule-out vegetation - No evidence of endocarditis on CARLY done 11/17/18 in this patient with right upper arm cellulitis - Per ID: discontinue Cefepime for now and continue Daptomycin - day 4 from first negative blood cx; - repeat blood cx are negative; reviewed. - Patient will need at least 2 weeks of antibiotics from the first negative blood cx. - Midline insertion ordered for long-term antibiotic administration - Will follow-up with SW regarding placement in [facility] with Midline /long-term antibiotic - Active antibiotic: Daptomycin 440mg IV Q24 Hemorrhagic stroke - MRI 11/01/18: Subacute to chronic involving R temporal and frontal parietal ischemic infarct with hemorrhagic component. Associated residual vasogenic edema. Hemosiderin ring present. - Head and neck CT:11/02/18: 1. Critical stenosis origin R ICA. Greater than 75% stenosis origin L ICA. 2. Mod-severe multifocal stenosis R ICA cavernous and supreclinoid segment. No sig stenosis L cavernous and intracranial ICA. 3. Slight increase in stenosis of R M1 MCA. please refer to full report for additional details - CT head 11/03: No change in large MCA distribution infarct, No evidence of midline shift. - CT Head 11/05: No acute intracranial hemorrhage. Re-demonstration of large chronic R MCA territory infarct - Please refer to full report for details - PT eval - Acute Rehab - Follow-up on [facility] placement with SW - Lipid Panel - Cholesterol - 164, LDL - 71, HDL - 35, T - Asa, plavix - Cont per neuro - Cont statin - Aspiration precautions - High fall risk - OOB w/ assistance - Head of bed elevation 30 - Neuro Q4 - VS Q4 - Neuro consult - Dr. Agudelo - Seroquel 25mg AM and 75mg QHS - Neurosurg Consult - Dr. Martinez - No neurosurgical intervention at this time - Neurointerventionalist consult - Dr. Cruz - No acute intervention at this time. - Psych Consult - Dr. Pavon - Ativan .5 PRN for agitation, Ambien 5mg qhs Hx of DM: - ISS - Medium - Finger sticks QACHS - Hypoglycemia protocol ordered PRN Hx of HTN: - Cont home metoprolol 25mg QHS - Q4 vital signs Hx of HLD: - Cont lipitor 40qd Hx of tobacco abuse: - Nicotine Patch PPx: GI: Pepcid DVT: SCDs Dispo: Pt still agitated. Pt had Gram + cocci in both blood cxs. Pending Cardiology recommendation regarding CARLY to rule-out vegetation. Case seen and discussed with Dr. Zoraida Quiroga PGY1 <Navi Conway - Last Filed: 11/17/18 17:31> Objective - Vital Signs/Intake and Output Vital Signs (last 24 hours): Temp Pulse Resp BP Pulse Ox 98 F 65 19 138/81 97 11/17/18 12:21 11/17/18 12:21 11/17/18 12:21 11/17/18 12:21 11/17/18 12:21 Intake and Output: 11/17/18 11/17/18 06:59 18:59 Intake Total 50 Balance 50 - Medications Medications: Current Medications Acetaminophen (Tylenol 325mg Tab) 650 mg PO Q6H PRN PRN Reason: Pain, moderate (4-7) Last Admin: 11/14/18 18:47 Dose: 650 mg Acetaminophen (Tylenol 325 Mg Supp) 325 mg RC Q6H PRN PRN Reason: Fever >100.4 F Aspirin (Aspirin Chewable) 81 mg PO DAILY [facility] Last Admin: 11/17/18 14:31 Dose: 81 mg Atorvastatin Calcium (Lipitor) 40 mg PO DIN [facility] Last Admin: 11/16/18 18:21 Dose: 40 mg Clopidogrel Bisulfate (Plavix) 75 mg PO DAILY [facility] Last Admin: 11/17/18 14:34 Dose: 75 mg Dextrose (Dextrose 50% Inj) 0 ml IV STAT PRN; Protocol PRN Reason: Hypoglycemia Protocol Famotidine (Pepcid) 20 mg PO Q12 [facility] Last Admin: 11/17/18 14:34 Dose: 20 mg Dextrose (Dextrose 5% In Water 1000 Ml) 1,000 mls @ 0 mls/hr IV .Q0M PRN; Protocol PRN Reason: Hypoglycemia Protocol Daptomycin 440 mg/ Sodium (Chloride) 100 mls @ 200 mls/hr IV Q24H [facility] Stop: 12/12/18 10:01 Last Admin: 11/17/18 14:32 Dose: 200 mls/hr Insulin Human Lispro (Humalog Med) 0 units SC ACHS [facility]; Protocol Last Admin: 11/17/18 12:52 Dose: 1 units Lorazepam (Ativan) 2 mg IVP Q6H PRN; Protocol PRN Reason: Agitation Last Admin: 11/17/18 06:00 Dose: 2 mg Metoprolol Tartrate (Lopressor) 25 mg PO BRKDIN [facility] Last Admin: 11/17/18 08:38 Dose: 25 mg Mupirocin (Bactroban Ointment) 0 gm TOP BID [facility] Last Admin: 11/17/18 14:32 Dose: 1 applic Nicotine (Nicoderm Cq) 1 patch TD DAILY [facility] Last Admin: 11/17/18 14:33 Dose: 1 patch Vitamin A (Vitamin A & D Oint Ud Foilpak) 1 ea TOP BID [facility] Last Admin: 11/17/18 14:34 Dose: 1 ea Ziprasidone (Geodon Cap) 20 mg PO HS [facility]; Protocol Last Admin: 11/16/18 22:33 Dose: 20 mg Ziprasidone (Geodon Cap) 20 mg PO DAILY [facility]; Protocol Last Admin: 11/17/18 14:33 Dose: 20 mg Zolpidem Tartrate (Ambien) 5 mg PO HS [facility]; Protocol Last Admin: 11/16/18 22:32 Dose: 5 mg - Labs Labs: 11/17/18 05:30 11/17/18 05:30 PT 12.7 SECONDS (9.4-12.5) H 11/02/18 13:38 INR 1.12 11/02/18 13:38 APTT 39.3 Seconds (26.9-38.3) H 11/02/18 13:38 Attending/Attestation - Attestation I have personally seen and examined this patient.: Yes I have fully participated in the care of the patient.: Yes I have reviewed all pertinent clinical information, including history, physical exam and plan: Yes Notes (Text): 11/17/18 17:30 53 year old male with past medical history of hypertension, diabetes, and CVA (07/2018) who was initially admitted under psychiatric unit for depression. He was transferred to medical floor for +MRI findings showing subacute to chronic ischemic infarction involving the right frontal, temporal and parietal lobes with accompanying hemorrhagic component. CTA head/neck showed critical stenosis of right ICA, >75% stenosis of left ICA and moderate to severe multifocal stenosis of the cavernous and supraclinoid segments of right ICA. Neurology has been following. Serial CT heads have been stable. Patient is on aspirin, plavix and statin. Neurosurgery and vascular evaluations were also appreciated; no acute intervention planned. Recommended outpatient follow up. Continue with iv antibiotics for MRSA bacteremia. Echocardiogram was reviewed as above. CARLY was done today and negative for vegetations. Case discussed with ID; will need two weeks of antibiotics. PT is following; recommended rehab. Will discuss with CMx/Sw for d/c planning. Patient's girlfriend is present at bedside and questions were answered. Navi Conway MD Hospitalist.
[2018-11-17] MEDS: Insulin Lispro (humaLOG) MEDIUM Coverage SC SCH ×4 (08:36→21:38)
[2018-11-17] MEDS ORDERED: Benzocaine/Butamben/Tetracai 14-2-2% TOP Spray TOP ONE (10:37)
[2018-11-17] MEDS ORDERED: Midazolam 2 MG/2 ML VIAL ONE (10:38)
[2018-11-17] MEDS ORDERED: Phenylephrine 10 mg/ml Inj ONE (10:38)
--- NOTE | 2018-11-17 11:25 | CARD ---
APPROVED REPORT Date of service: 11/17/2018 EXAM: Transesophageal echocardiogram with color flow Doppler. INDICATION Infection : Rule out subacute bacterial endocarditis Reason For Test : Rule out endocarditis. PROCEDURE After obtaining informed consent, patient underwent transesophageal echo in the Echo Lab. Type of Sedation : Conscious Sedation Sedation was provided by anesthesiologist. Sedation was achieved with intravenously. Transesophageal probe was inserted and advanced into esophagus without difficulty. Echo enhancement indication: R/O Septal defect. Echo enhancement agent administered: Agitated Saline The CARLY was performed without complications. Throughout the procedure, the blood pressure, pulse oximetry, cardiac rhythm, and rate were monitored. The patient tolerated the procedure without adverse effects. Recovery from conscious sedation was uneventful and vital signs were stable. LEFT VENTRICLE The left ventricle is normal size. There is mild concentric left ventricular hypertrophy. The left ventricular function is normal. The left ventricular ejection fraction is within the normal range. There is normal LV segmental wall motion. No left ventricle thrombus noted on this study. RIGHT VENTRICLE The right ventricle is normal size. There is normal right ventricular wall thickness. The right ventricular systolic function is normal. ATRIA The left atrium size is normal. No thrombus is seen in the left atrium. The right atrium size is normal. The interatrial septum is intact with no evidence for an atrial septal defect. AORTIC VALVE The aortic valve is severely thickened. There is trace aortic regurgitation. There is no aortic valvular vegetation. MITRAL VALVE The mitral valve is normal in structure. There is no evidence of mitral valve prolapse. There is no mitral valve stenosis. TRICUSPID VALVE The tricuspid valve is normal in structure. There is no tricuspid valve regurgitation noted. GREAT VESSELS The aortic root is normal in size. <Conclusion> The interatrial septum is intact with no evidence for an atrial septal defect. The aortic valve is severely thickened. There is trace aortic regurgitation. There is no aortic valvular vegetation. No intra-cavitry thrombus
[2018-11-17] MEDS ORDERED: Lactated Ringer's 1,000 ML IV SCH (11:30)
--- NOTE | 2018-11-17 12:31 | PN ---
DATE: 11/17/2018 SUBJECTIVE: The patient was seen today. The patient presented to be drowsy. As per report, the patient still has episodes of restless behavior majority of the time over nighttime. The patient was medicated with Ativan 2 mg IV push at 6:00 at the morning time and during the morning round the patient appears to be drowsy. The patient was able to open his eyes, but falling back asleep. Overall from the mental standpoint, the patient has episodes of confusion and restless behavior, but overall it is less in frequency. PHYSICAL EXAMINATION VITAL SIGNS: Reviewed. Temperature 97.4, pulse 72, blood pressure 145/86, respiration 18 and oxygen saturation 97%. MEDICATIONS: Reviewed. The patient is on Tylenol, aspirin, Lipitor, Plavix, daptomycin, dextrose, Pepcid, Humalog, Ativan, Lopressor, Bactroban, Nicoderm, vitamin A, Geodon 20 mg twice a day and Ambien 5 mg at the nighttime schedule. LABORATORY DATA: Reviewed. Most recent was from today. Chemistry reviewed. Serology reviewed. Microbiology positive for MRSA in the blood. MENTAL STATUS EXAMINATION: The patient appears to be drowsy. The patient was not able to participate in interview. The patient still has episodes like restless behavior and agitation, but less frequent. Insight and judgment seems to be limited. Impulses are better controlled. IMPRESSION: The patient is still in delirium stage but it is more manageable. 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 PLAN: Geodon should be continued. Ativan as needed. Xanax was stopped by medical team. The patient improving from the mental standpoint. Today, the patient is scheduled for CARLY. The patient has sclerotic valves and vegetation cannot be excluded and endocarditis need to be excluded. This publications writer will follow up on this patient every other day and advise accordingly. Thank you very much for letting me participate in care of your patient. Should you have any questions give me a call back. Savanah Galarza MD [facility]
--- NOTE | 2018-11-17 13:29 | CP.PCM.PN ---
Subjective - Date & Time of Evaluation Date of Evaluation: 11/17/18 Time of Evaluation: 10:55 - Subjective Subjective: Patient went for CARLY today, no fevers, comfortable, not in distress. Objective - Vital Signs/Intake and Output Vital Signs (last 24 hours): Temp Pulse Resp BP Pulse Ox 97.5 F L 85 20 136/85 97 11/16/18 08:15 11/16/18 09:23 11/16/18 08:15 11/16/18 09:23 11/16/18 08:15 Intake and Output: 11/16/18 11/16/18 06:59 18:59 Intake Total 360 360 Output Total 400 400 Balance -40 -40 - Medications Medications: Current Medications Acetaminophen (Tylenol 325mg Tab) 650 mg PO Q6H PRN PRN Reason: Pain, moderate (4-7) Last Admin: 11/14/18 18:47 Dose: 650 mg Acetaminophen (Tylenol 325 Mg Supp) 325 mg RC Q6H PRN PRN Reason: Fever >100.4 F Alprazolam (Xanax) 0.5 mg PO BID [facility]; Protocol Stop: 11/16/18 18:01 Last Admin: 11/16/18 09:25 Dose: 0.5 mg Aspirin (Aspirin Chewable) 81 mg PO DAILY [facility] Last Admin: 11/16/18 09:22 Dose: 81 mg Atorvastatin Calcium (Lipitor) 40 mg PO DIN [facility] Last Admin: 11/15/18 17:31 Dose: 40 mg Clopidogrel Bisulfate (Plavix) 75 mg PO DAILY [facility] Last Admin: 11/16/18 09:25 Dose: 75 mg Dextrose (Dextrose 50% Inj) 0 ml IV STAT PRN; Protocol PRN Reason: Hypoglycemia Protocol Famotidine (Pepcid) 20 mg PO Q12 [facility] Last Admin: 11/16/18 09:25 Dose: 20 mg Dextrose (Dextrose 5% In Water 1000 Ml) 1,000 mls @ 0 mls/hr IV .Q0M PRN; Protocol PRN Reason: Hypoglycemia Protocol Cefepime HCl (Maxipime 1gm) 1 gm in 100 mls @ 100 mls/hr IVPB Q8 [facility]; Protocol Stop: 11/22/18 22:01 Last Admin: 11/16/18 05:07 Dose: 100 mls/hr Daptomycin 440 mg/ Sodium (Chloride) 100 mls @ 200 mls/hr IV Q24H [facility] Stop: 12/12/18 10:01 Last Admin: 11/16/18 10:56 Dose: 200 mls/hr Insulin Human Lispro (Humalog Med) 0 units SC ACHS [facility]; Protocol Last Admin: 11/15/18 21:36 Dose: Not Given Lorazepam (Ativan) 2 mg IVP Q6H PRN; Protocol PRN Reason: Agitation Last Admin: 11/15/18 23:23 Dose: 2 mg Metoprolol Tartrate (Lopressor) 25 mg PO BRKDIN [facility] Last Admin: 11/16/18 09:23 Dose: 25 mg Mupirocin (Bactroban Ointment) 0 gm TOP BID [facility] Last Admin: 11/15/18 17:31 Dose: 1 applic Nicotine (Nicoderm Cq) 1 patch TD DAILY [facility] Last Admin: 11/16/18 09:23 Dose: 1 patch Vitamin A (Vitamin A & D Oint Ud Foilpak) 1 ea TOP BID [facility] Last Admin: 11/16/18 09:25 Dose: 1 ea Ziprasidone (Geodon Cap) 20 mg PO HS [facility]; Protocol Last Admin: 11/15/18 21:35 Dose: 20 mg Ziprasidone (Geodon Cap) 20 mg PO DAILY [facility]; Protocol Last Admin: 11/16/18 09:22 Dose: 20 mg Zolpidem Tartrate (Ambien) 5 mg PO HS [facility]; Protocol Last Admin: 11/15/18 21:34 Dose: 5 mg - Labs Labs: 11/16/18 06:00 11/16/18 06:00 PT 12.7 SECONDS (9.4-12.5) H 11/02/18 13:38 INR 1.12 11/02/18 13:38 APTT 39.3 Seconds (26.9-38.3) H 11/02/18 13:38 - Constitutional Appears: Chronically Ill - Respiratory Exam Respiratory Exam: Decreased Breath Sounds - Cardiovascular Exam Cardiovascular Exam: +S1, +S2 - GI/Abdominal Exam GI & Abdominal Exam: Soft. absent: Tenderness Assessment and Plan - Assessment and Plan (Free Text) Plan: Asssessment sepsis due to Methicillin-resistant Staph aureus bacteremia in this patient with right parietal and temporal lobe infarct with hemorrhagic conversion; no evidence of endocarditis on CARLY done today in this patient with right upper arm cellulitis CVA DM HTN dyslipidemia depression significant smoking Plan will discontinue Cefepime for now and continue Daptomycin - day 4 from first negative blood cx; repeat blood cx are negative; reviewed CARLY results done by Dr. Godinez will need at least 2 weeks of antibiotics from the first negative blood cx will continue to monitor clinically
[2018-11-17] MEDS: Mupirocin 2% Ointment 15 GM TUBE TOP SCH ×2 (14:32→17:52)
[2018-11-17] MEDS: Vitamins A & D Oint UD Foilpak TOP SCH ×2 (14:34→18:06)
--- NOTE | 2018-11-17 18:22 | PN ---
DATE: 11/17/2018 SUBJECTIVE: The patient denies any chest pain or shortness of breath. Was seen in the echo department prior to TE. PHYSICAL EXAMINATION VITAL SIGNS: Blood pressure 138/81, heart rate 60, temperature 98, and respirations 18. HEENT: Normocephalic. CHEST: Clear. HEART: S1 and S2 regular. EXTREMITIES: No edema. LABORATORY DATA: Today's hemoglobin and hematocrit 12.1 and 8.4, white count and platelet count are within normal limits. Today's SMA-7 is moderate except for glucose of 172 and creatinine 0.6 and the patient underwent CARLY which did not reveal an aortic valve regurgitation, but the aortic was significantly thickened and there was trace aortic insufficiency. ASSESSMENT: 1. Methicillin-resistant staphylococcus aureus bacteriemia aortic regurgitation. 2. Recent right frontoparietal lobe infarct with a residual . RECOMMENDATIONS: Continue aspirin 81 mg once a day. Continue IV daptomycin. Continue Plavix 75 mg once a day and Lopressor 25 mg twice a day. Case was discussed with the patient's sister prior and after the CARLY and his sister is a legal guardian and she is the one who we need to consent for CARLY. Aniceto Barger MD
[2018-11-18] MEDS: Insulin Lispro (humaLOG) MEDIUM Coverage SC SCH ×4 (08:30→23:00)
[2018-11-18 08:35] LABS: BASO # 0.04 K/mm3 (0.0-2.0); BASO % 0.5 % (0.0-3.0); EOS # 0.4 (0.0-0.7); EOS % 4.3 % (1.5-5.0); HEMOGLOBIN 11.5 g/dL (14.0-18.0); LYMPH # 2.6 (1.2-3.4); LYMPH % 31.3 % (22.0-35.0); MEAN CELL VOLUME 84.5 fl (80.0-105.0); MEAN CORPUSCULAR HEMOGLOBIN 26.6 pg (25.0-35.0); MEAN CORPUSCULAR HGB CONC 31.4 g/dl (31.0-37.0); MEAN PLATELET VOLUME 9.1 fl (7.0-11.0); MONO # 0.5 (0.1-0.6); MONO % 6.3 % (1.0-6.0); RBC 4.33 10^6/uL (3.5-6.1); WHITE BLOOD COUNT 8.2 10^3/uL (4.5-11.0)
[2018-11-18 08:49] LABS: ALB/GLOB RATIO 1.1 (1.1-1.8); ALBUMIN 3.9 g/dL (3.0-4.8); ALT/SGPT 27 U/L (7-56); AST/SGOT 25 U/L (17-59); BLOOD UREA NITROGEN 14 mg/dL (7-21); CALCIUM 9.5 mg/dL (8.4-10.5); GFR NON-AFRICAN AMERICAN > 60
[2018-11-18] MEDS: Vitamins A & D Oint UD Foilpak TOP SCH ×2 (09:28→17:08)
[2018-11-18] MEDS: Mupirocin 2% Ointment 15 GM TUBE TOP SCH ×2 (11:56→19:29)
--- NOTE | 2018-11-18 14:53 | CP.PCM.PN ---
Subjective - Date & Time of Evaluation Date of Evaluation: 11/18/18 Time of Evaluation: 11:45 - Subjective Subjective: Comfortable, not in distress, afebrile, no headache. Objective - Vital Signs/Intake and Output Vital Signs (last 24 hours): Temp Pulse Resp BP Pulse Ox 98 F 65 19 138/81 97 11/17/18 12:21 11/17/18 12:21 11/17/18 12:21 11/17/18 12:21 11/17/18 12:21 Intake and Output: 11/17/18 11/17/18 06:59 18:59 Intake Total 50 Balance 50 - Medications Medications: Current Medications Acetaminophen (Tylenol 325mg Tab) 650 mg PO Q6H PRN PRN Reason: Pain, moderate (4-7) Last Admin: 11/14/18 18:47 Dose: 650 mg Acetaminophen (Tylenol 325 Mg Supp) 325 mg RC Q6H PRN PRN Reason: Fever >100.4 F Aspirin (Aspirin Chewable) 81 mg PO DAILY [facility] Last Admin: 11/16/18 09:22 Dose: 81 mg Atorvastatin Calcium (Lipitor) 40 mg PO DIN [facility] Last Admin: 11/16/18 18:21 Dose: 40 mg Clopidogrel Bisulfate (Plavix) 75 mg PO DAILY [facility] Last Admin: 11/16/18 09:25 Dose: 75 mg Dextrose (Dextrose 50% Inj) 0 ml IV STAT PRN; Protocol PRN Reason: Hypoglycemia Protocol Famotidine (Pepcid) 20 mg PO Q12 [facility] Last Admin: 11/16/18 22:35 Dose: 20 mg Dextrose (Dextrose 5% In Water 1000 Ml) 1,000 mls @ 0 mls/hr IV .Q0M PRN; Protocol PRN Reason: Hypoglycemia Protocol Daptomycin 440 mg/ Sodium (Chloride) 100 mls @ 200 mls/hr IV Q24H [facility] Stop: 12/12/18 10:01 Last Admin: 11/16/18 10:56 Dose: 200 mls/hr Lactated Ringer's (Lactated Ringer's) 1,000 mls @ 75 mls/hr IV .[id number] [facility] Stop: 11/17/18 13:31 Insulin Human Lispro (Humalog Med) 0 units SC ACHS [facility]; Protocol Last Admin: 11/17/18 12:52 Dose: 1 units Lorazepam (Ativan) 2 mg IVP Q6H PRN; Protocol PRN Reason: Agitation Last Admin: 11/17/18 06:00 Dose: 2 mg Metoprolol Tartrate (Lopressor) 25 mg PO BRKDIN [facility] Last Admin: 11/17/18 08:38 Dose: 25 mg Mupirocin (Bactroban Ointment) 0 gm TOP BID [facility] Last Admin: 11/16/18 18:17 Dose: 1 applic Nicotine (Nicoderm Cq) 1 patch TD DAILY [facility] Last Admin: 11/16/18 09:23 Dose: 1 patch Vitamin A (Vitamin A & D Oint Ud Foilpak) 1 ea TOP BID [facility] Last Admin: 11/16/18 18:16 Dose: 1 ea Ziprasidone (Geodon Cap) 20 mg PO HS [facility]; Protocol Last Admin: 11/16/18 22:33 Dose: 20 mg Ziprasidone (Geodon Cap) 20 mg PO DAILY [facility]; Protocol Last Admin: 11/16/18 09:22 Dose: 20 mg Zolpidem Tartrate (Ambien) 5 mg PO HS [facility]; Protocol Last Admin: 11/16/18 22:32 Dose: 5 mg - Labs Labs: 11/17/18 05:30 11/17/18 05:30 PT 12.7 SECONDS (9.4-12.5) H 11/02/18 13:38 INR 1.12 11/02/18 13:38 APTT 39.3 Seconds (26.9-38.3) H 11/02/18 13:38 - Constitutional Appears: No Acute Distress, Chronically Ill - Head Exam Head Exam: NORMAL INSPECTION - Neck Exam Neck Exam: absent: Meningismus - Respiratory Exam Respiratory Exam: Decreased Breath Sounds - Cardiovascular Exam Cardiovascular Exam: +S1, +S2 - GI/Abdominal Exam GI & Abdominal Exam: Soft. absent: Tenderness Assessment and Plan - Assessment and Plan (Free Text) Plan: Asssessment sepsis due to Methicillin-resistant Staph aureus bacteremia in this patient with right parietal and temporal lobe infarct with hemorrhagic conversion; no evidence of endocarditis on CARLY done today in this patient with right upper arm cellulitis CVA DM HTN dyslipidemia depression significant smoking Plan will discontinue Cefepime for now and continue Daptomycin - day 5 from first negative blood cx; repeat blood cx are negative; reviewed CARLY results done by Dr. Hanallah will need at least 2 weeks of antibiotics from the first negative blood cx will continue to monitor clinically
--- NOTE | 2018-11-18 17:33 | PN ---
DATE: 11/18/2018 SUBJECTIVE: The patient denies any chest pain or shortness of breath. PHYSICAL EXAMINATION: Vital signs: Blood pressure 156/64, heart rate 76, temperature 97.9, respiration 20. HEENT: Normocephalic. CHEST: Clear. HEART: S1 and S2 regular. EXTREMITIES: No edema. LABORATORY DATA: Hemoglobin and hematocrit 11.5 and 36.6, white count and platelet count are within normal limit. Today's SMA-7 is within normal limits except for glucose 188 and creatinine 0.6. ASSESSMENT: 1. History of recent cardiovascular accident and the right frontoparietal infarct with residual left hemiparesis. 2. Methicillin-resistant Staphylococcus aureus bacteremia, no evidence of valvular vegetation. RECOMMENDATIONS: Continue current aspirin 81 mg once a day, IV daptomycin. Continue Lipitor 40 mg once a day, Lopressor 25 mg twice a day, Pepcid 20 mg p.o. twice a day, Plavix 75 mg once a day. Aniceto Barger MD
--- NOTE | 2018-11-18 17:34 | CP.PCM.PN ---
<Karoline Zambrano - Last Filed: 11/18/18 17:22> Subjective - Date & Time of Evaluation Date of Evaluation: 11/18/18 Time of Evaluation: 17:22 - Subjective Subjective: Karoline Zambrano, PGY-1, Internal Medicine Progress Note for Dr. Conway Patient seen and evaluated at bedside. Patient had no acute overnight events. Patient is AAOx2 at bedside. He has no complaints today including headache, fever, chest pain, shortness of breath, increase in weakness, nausea, vomiting, constipation, diarrhea, dysuria, hematuria. 12-point ROS was unremarkable except for what was mentioned above Objective - Vital Signs/Intake and Output Vital Signs (last 24 hours): Temp Pulse Resp BP Pulse Ox 98.4 F 88 20 120/65 96 11/18/18 16:58 11/18/18 17:10 11/18/18 16:58 11/18/18 17:10 11/18/18 16:58 Intake and Output: 11/18/18 11/18/18 06:59 18:59 Intake Total 360 0 Balance 360 0 - Medications Medications: Current Medications Acetaminophen (Tylenol 325mg Tab) 650 mg PO Q6H PRN PRN Reason: Pain, moderate (4-7) Last Admin: 11/14/18 18:47 Dose: 650 mg Acetaminophen (Tylenol 325 Mg Supp) 325 mg RC Q6H PRN PRN Reason: Fever >100.4 F Aspirin (Aspirin Chewable) 81 mg PO DAILY [facility] Last Admin: 11/18/18 09:27 Dose: 81 mg Atorvastatin Calcium (Lipitor) 40 mg PO DIN [facility] Last Admin: 11/18/18 17:08 Dose: 40 mg Clopidogrel Bisulfate (Plavix) 75 mg PO DAILY [facility] Last Admin: 11/18/18 09:28 Dose: 75 mg Dextrose (Dextrose 50% Inj) 0 ml IV STAT PRN; Protocol PRN Reason: Hypoglycemia Protocol Famotidine (Pepcid) 20 mg PO Q12 [facility] Last Admin: 11/18/18 09:28 Dose: 20 mg Dextrose (Dextrose 5% In Water 1000 Ml) 1,000 mls @ 0 mls/hr IV .Q0M PRN; Protocol PRN Reason: Hypoglycemia Protocol Daptomycin 440 mg/ Sodium (Chloride) 100 mls @ 200 mls/hr IV Q24H [facility] Stop: 12/12/18 10:01 Last Admin: 11/18/18 11:04 Dose: 200 mls/hr Insulin Human Lispro (Humalog Med) 0 units SC ACHS [facility]; Protocol Last Admin: 11/18/18 17:09 Dose: 3 units Lorazepam (Ativan) 2 mg IVP Q6H PRN; Protocol PRN Reason: Agitation Last Admin: 11/17/18 17:50 Dose: 2 mg Metoprolol Tartrate (Lopressor) 25 mg PO BRKDIN [facility] Last Admin: 11/18/18 17:10 Dose: 25 mg Mupirocin (Bactroban Ointment) 0 gm TOP BID [facility] Last Admin: 11/18/18 11:56 Dose: 1 applic Nicotine (Nicoderm Cq) 1 patch TD DAILY [facility] Last Admin: 11/18/18 09:28 Dose: 1 patch Vitamin A (Vitamin A & D Oint Ud Foilpak) 1 ea TOP BID [facility] Last Admin: 11/18/18 17:08 Dose: 1 ea Ziprasidone (Geodon Cap) 20 mg PO HS [facility]; Protocol Last Admin: 11/17/18 22:36 Dose: 20 mg Ziprasidone (Geodon Cap) 20 mg PO DAILY [facility]; Protocol Last Admin: 11/18/18 09:27 Dose: 20 mg Zolpidem Tartrate (Ambien) 5 mg PO HS [facility]; Protocol Last Admin: 11/17/18 22:55 Dose: 5 mg - Labs Labs: 11/18/18 08:20 11/18/18 08:20 PT 12.7 SECONDS (9.4-12.5) H 11/02/18 13:38 INR 1.12 11/02/18 13:38 APTT 39.3 Seconds (26.9-38.3) H 11/02/18 13:38 - Constitutional Appears: Well, Non-toxic, No Acute Distress - Head Exam Head Exam: ATRAUMATIC, NORMAL INSPECTION, NORMOCEPHALIC - Eye Exam Eye Exam: EOMI Pupil Exam: PERRL - ENT Exam ENT Exam: Mucous Membranes Moist - Neck Exam Neck Exam: Full ROM - Respiratory Exam Respiratory Exam: Clear to Ausculation Bilateral, NORMAL BREATHING PATTERN - Cardiovascular Exam Cardiovascular Exam: REGULAR RHYTHM, RRR - GI/Abdominal Exam GI & Abdominal Exam: Soft, Normal Bowel Sounds. absent: Tenderness - Extremities Exam Extremities Exam: absent: Full ROM - Neurological Exam Neurological Exam: Alert, Awake, CN II-XII Intact (grossly). absent: Oriented x3 Neuro motor strength exam: Left Upper Extremity: 0, Right Upper Extremity: 5, Left Lower Extremity: 4, Right Lower Extremity: 5 - Skin Skin Exam: Dry, Intact Assessment and Plan - Assessment and Plan (Free Text) Assessment: 53 year old male with past medical history of hypertension, diabetes mellitus type II, ischemic stroke (left sided paralysis), hyperlipidemia, and metal strapnal in left eye that was removed presents with right temporal and frontal pareital ischemic infarct with hemorrhagic component confirmed by MRI. Patient was treated in ICU with residual left sided weakness. Patient had Staph Aureus in both blood cultures. No evidence of endocarditis on CARLY today with right upper arm cellulitis. As per ID, continue with daptomycin day 5 for a total of 2 weeks of antibiotics. Midline placed today for completion of antibiotics outpatient. Plan: Staph Aureus Bacteremia -Blood culture on 11/13: gram positive cocci -HIV negative -CARLY: shows no evidence of valve vegetation -As per ID, continue with daptomycin day 5 out of 14 days. -Midline placed today. -Follow up with social work regarding placement Hemorrhagic Stroke -Head MRI 11/01: right temporal and frontal parietal ischemic infarct with hemorrhagic component -Head and neck CT on 11/02: Critical stenosis origin R ICA. Greater than 75% stenosis origin L ICA. Mod-severe multifocal stenosis R ICA cavernous. No sign of stenosis L cavernous and intracranial ICA. Slight increase in stenosis of R M1 MCA. -Head CT 11/03: No change in large MCA distribution infarct, No evidence of midline shift. -Head CT 11/05: No acute intracranial hemorrhage. Re-demonstration of large chronic R MCA territory infarct -Lipid panel shows elevated triglycerides -Continue with aspirin, statin, and plavix. -Aspiration, fall, and seizure precautions -HOB at 30 degrees -Neuro checks Q4 -Dr. Agudelo and Dr. Martinez, Neurology and Neurosurgery, consulted for recommendations. Follow recommendations. Hypertension -Continue Lopressor 25 mg daily Hyperlipidemia -Elevated triglycerides on lipid panel -Continue with lipitor 40 mg daily Delirium-improving -Continue with geodon, ativan PRN. Xanax stopped. -Dr. Galarza, Psychiatry, was consulted for recommendations. Follow recommendations Diabetes Mellitus Type II -Medium SSI -Accuchecks ACHS Tobacco Abuse -Nicotine patch daily Insomnia -Continue with ambien GI prophylaxis: pepcid 20 mg Q12 DVT prophylaxis: SCD Disposition: PT recommended [facility] however due to patient's insurance, difficulty presently Patient plan discussed with attending. <Navi Conway - Last Filed: 11/18/18 18:13> Objective - Vital Signs/Intake and Output Vital Signs (last 24 hours): Temp Pulse Resp BP Pulse Ox 98.4 F 88 20 120/65 96 11/18/18 16:58 11/18/18 17:10 11/18/18 16:58 11/18/18 17:10 11/18/18 16:58 Intake and Output: 11/18/18 11/18/18 06:59 18:59 Intake Total 360 0 Balance 360 0 - Medications Medications: Current Medications Acetaminophen (Tylenol 325mg Tab) 650 mg PO Q6H PRN PRN Reason: Pain, moderate (4-7) Last Admin: 11/14/18 18:47 Dose: 650 mg Acetaminophen (Tylenol 325 Mg Supp) 325 mg RC Q6H PRN PRN Reason: Fever >100.4 F Aspirin (Aspirin Chewable) 81 mg PO DAILY [facility] Last Admin: 11/18/18 09:27 Dose: 81 mg Atorvastatin Calcium (Lipitor) 40 mg PO DIN [facility] Last Admin: 11/18/18 17:08 Dose: 40 mg Clopidogrel Bisulfate (Plavix) 75 mg PO DAILY [facility] Last Admin: 11/18/18 09:28 Dose: 75 mg Dextrose (Dextrose 50% Inj) 0 ml IV STAT PRN; Protocol PRN Reason: Hypoglycemia Protocol Famotidine (Pepcid) 20 mg PO Q12 [facility] Last Admin: 11/18/18 09:28 Dose: 20 mg Dextrose (Dextrose 5% In Water 1000 Ml) 1,000 mls @ 0 mls/hr IV .Q0M PRN; Protocol PRN Reason: Hypoglycemia Protocol Daptomycin 440 mg/ Sodium (Chloride) 100 mls @ 200 mls/hr IV Q24H [facility] Stop: 12/12/18 10:01 Last Admin: 11/18/18 11:04 Dose: 200 mls/hr Insulin Human Lispro (Humalog Med) 0 units SC [facility]; Protocol Last Admin: 11/18/18 17:09 Dose: 3 units Lorazepam (Ativan) 2 mg IVP Q6H PRN; Protocol PRN Reason: Agitation Last Admin: 11/18/18 17:41 Dose: 2 mg Metoprolol Tartrate (Lopressor) 25 mg PO BRKDIN [facility] Last Admin: 11/18/18 17:10 Dose: 25 mg Mupirocin (Bactroban Ointment) 0 gm TOP BID [facility] Last Admin: 11/18/18 11:56 Dose: 1 applic Nicotine (Nicoderm Cq) 1 patch TD DAILY [facility] Last Admin: 11/18/18 09:28 Dose: 1 patch Vitamin A (Vitamin A & D Oint Ud Foilpak) 1 ea TOP BID [facility] Last Admin: 11/18/18 17:08 Dose: 1 ea Ziprasidone (Geodon Cap) 20 mg PO HS [facility]; Protocol Last Admin: 11/17/18 22:36 Dose: 20 mg Ziprasidone (Geodon Cap) 20 mg PO DAILY [facility]; Protocol Last Admin: 11/18/18 09:27 Dose: 20 mg Zolpidem Tartrate (Ambien) 5 mg PO HS [facility]; Protocol Last Admin: 11/17/18 22:55 Dose: 5 mg - Labs Labs: 11/18/18 08:20 11/18/18 08:20 PT 12.7 SECONDS (9.4-12.5) H 11/02/18 13:38 INR 1.12 11/02/18 13:38 APTT 39.3 Seconds (26.9-38.3) H 11/02/18 13:38 Attending/Attestation - Attestation I have personally seen and examined this patient.: Yes I have fully participated in the care of the patient.: Yes I have reviewed all pertinent clinical information, including history, physical exam and plan: Yes Notes (Text): 11/18/18 18:12 53 year old male with past medical history of hypertension, diabetes, and CVA (07/2018) who was initially admitted under psychiatric unit for depression. He was transferred to medical floor for +MRI findings showing subacute to chronic ischemic infarction involving the right frontal, temporal and parietal lobes with accompanying hemorrhagic component. CTA head/neck showed critical stenosis of right ICA, >75% stenosis of left ICA and moderate to severe multifocal stenosis of the cavernous and supraclinoid segments of right ICA. Neurology has been following. Serial CT heads have been stable. Patient is on aspirin, plavix and statin. Neurosurgery and vascular evaluations were also appreciated; no acute intervention planned. Recommended outpatient follow up. Continue with iv antibiotics for MRSA bacteremia. CARLY was negative for vegetations. Case discussed with ID; will need two weeks of antibiotics. PT is following; recommended rehab. Case discussed with CMx; d/c planning to rehab facility which will accept iv daptomycin. Navi Conway MD Hospitalist.
[2018-11-19 06:33] LABS: BASO # 0.09 K/mm3 (0.0-2.0); BASO % 1.2 % (0.0-3.0); EOS # 0.3 (0.0-0.7); EOS % 4.2 % (1.5-5.0); HEMOGLOBIN 11.3 g/dL (14.0-18.0); LYMPH # 2.6 (1.2-3.4); LYMPH % 33.9 % (22.0-35.0); MEAN CELL VOLUME 84.7 fl (80.0-105.0); MEAN CORPUSCULAR HEMOGLOBIN 26.6 pg (25.0-35.0); MEAN CORPUSCULAR HGB CONC 31.4 g/dl (31.0-37.0); MEAN PLATELET VOLUME 9.2 fl (7.0-11.0); MONO # 0.6 (0.1-0.6); MONO % 7.9 % (1.0-6.0); RBC 4.25 10^6/uL (3.5-6.1); RED CELL DISTRIBUTION WIDTH 15.1 % (11.5-14.5); WHITE BLOOD COUNT 7.6 10^3/uL (4.5-11.0)
[2018-11-19 07:16] LABS: ALB/GLOB RATIO 1.1 (1.1-1.8); ALT/SGPT 26 U/L (7-56); AST/SGOT 32 U/L (17-59); BLOOD UREA NITROGEN 15 mg/dL (7-21); CALCIUM 9.3 mg/dL (8.4-10.5); GFR NON-AFRICAN AMERICAN > 60
--- NOTE | 2018-11-19 07:42 | CP.PCM.PN ---
<Uziel Quiroga - Last Filed: 11/19/18 12:33> Subjective - Date & Time of Evaluation Date of Evaluation: 11/19/18 Time of Evaluation: 07:42 - Subjective Subjective: PGY1 Progress Note for Dr. Conway Patient seen and evaluated at bedside. Patient had no acute overnight events. No new complaints today. Of note, Patient is confused. Patient is ROS unremarkable for headache, fever, chest pain, shortness of breath, increase in weakness, nausea, vomiting, constipation, diarrhea, dysuria, hematuria. Objective - Vital Signs/Intake and Output Vital Signs (last 24 hours): Temp Pulse Resp BP Pulse Ox 98.4 F 88 20 120/65 96 11/18/18 19:18 11/18/18 19:18 11/18/18 19:18 11/18/18 19:18 11/18/18 19:18 Intake and Output: 11/19/18 11/19/18 06:59 18:59 Intake Total 0 Balance 0 - Medications Medications: Current Medications Acetaminophen (Tylenol 325mg Tab) 650 mg PO Q6H PRN PRN Reason: Pain, moderate (4-7) Last Admin: 11/18/18 21:54 Dose: 650 mg Acetaminophen (Tylenol 325 Mg Supp) 325 mg RC Q6H PRN PRN Reason: Fever >100.4 F Aspirin (Aspirin Chewable) 81 mg PO DAILY [facility] Last Admin: 11/18/18 09:27 Dose: 81 mg Atorvastatin Calcium (Lipitor) 40 mg PO DIN [facility] Last Admin: 11/18/18 17:08 Dose: 40 mg Clopidogrel Bisulfate (Plavix) 75 mg PO DAILY [facility] Last Admin: 11/18/18 09:28 Dose: 75 mg Dextrose (Dextrose 50% Inj) 0 ml IV STAT PRN; Protocol PRN Reason: Hypoglycemia Protocol Famotidine (Pepcid) 20 mg PO Q12 [facility] Last Admin: 11/18/18 21:55 Dose: 20 mg Dextrose (Dextrose 5% In Water 1000 Ml) 1,000 mls @ 0 mls/hr IV .Q0M PRN; Protocol PRN Reason: Hypoglycemia Protocol Daptomycin 440 mg/ Sodium (Chloride) 100 mls @ 200 mls/hr IV Q24H [facility] Stop: 12/12/18 10:01 Last Admin: 11/18/18 11:04 Dose: 200 mls/hr Insulin Human Lispro (Humalog Med) 0 units SC ACHS [facility]; Protocol Last Admin: 11/18/18 23:00 Dose: Not Given Lorazepam (Ativan) 2 mg IVP Q6H PRN; Protocol PRN Reason: Agitation Last Admin: 11/19/18 00:11 Dose: 2 mg Metoprolol Tartrate (Lopressor) 25 mg PO BRKDIN [facility] Last Admin: 11/18/18 17:10 Dose: 25 mg Mupirocin (Bactroban Ointment) 0 gm TOP BID [facility] Last Admin: 11/18/18 19:29 Dose: 1 applic Nicotine (Nicoderm Cq) 1 patch TD DAILY [facility] Last Admin: 11/18/18 09:28 Dose: 1 patch Vitamin A (Vitamin A & D Oint Ud Foilpak) 1 ea TOP BID [facility] Last Admin: 11/18/18 17:08 Dose: 1 ea Ziprasidone (Geodon Cap) 20 mg PO HS [facility]; Protocol Last Admin: 11/18/18 21:55 Dose: 20 mg Ziprasidone (Geodon Cap) 20 mg PO DAILY [facility]; Protocol Last Admin: 11/18/18 09:27 Dose: 20 mg Zolpidem Tartrate (Ambien) 5 mg PO HS [facility]; Protocol Last Admin: 11/18/18 21:56 Dose: 5 mg - Labs Labs: 11/19/18 06:15 11/19/18 06:15 PT 12.7 SECONDS (9.4-12.5) H 11/02/18 13:38 INR 1.12 11/02/18 13:38 APTT 39.3 Seconds (26.9-38.3) H 11/02/18 13:38 - Additional Findings Additional findings: - Constitutional Appears: Well, Non-toxic, No Acute Distress - Head Exam Head Exam: ATRAUMATIC, NORMAL INSPECTION, NORMOCEPHALIC - Eye Exam Eye Exam: EOMI Pupil Exam: PERRL - ENT Exam ENT Exam: Mucous Membranes Moist - Neck Exam Neck Exam: Full ROM - Respiratory Exam Respiratory Exam: Clear to Ausculation Bilateral, NORMAL BREATHING PATTERN - Cardiovascular Exam Cardiovascular Exam: REGULAR RHYTHM, RRR - GI/Abdominal Exam GI & Abdominal Exam: Soft, Normal Bowel Sounds. absent: Tenderness - Extremities Exam Extremities Exam: absent: Full ROM - Neurological Exam Neurological Exam: Alert, Awake, CN II-XII Intact (grossly). absent: Oriented x3 Neuro motor strength exam: Left Upper Extremity: 0, Right Upper Extremity: 5, Left Lower Extremity: 4, Right Lower Extremity: 5 Assessment and Plan - Assessment and Plan (Free Text) Assessment: 53 year old male with past medical history of hypertension, diabetes mellitus type II, ischemic stroke (left sided paralysis), hyperlipidemia, and metal strapnal in left eye that was removed presents with right temporal and frontal pareital ischemic infarct with hemorrhagic component confirmed by MRI. Patient was treated in ICU with residual left sided weakness. Patient had Staph Aureus in both blood cultures. No evidence of endocarditis on CARLY today with right upper arm cellulitis. As per ID, continue with daptomycin day 6 for a total of 2 weeks of antibiotics. Midline placed 11/18 for completion of antibiotics outpatient; This is currently pending due to difficulty with placement due to Patient's insurance. Plan: Staph Aureus Bacteremia - Blood culture on 11/13: gram positive cocci - HIV negative - CARLY: shows no evidence of valve vegetation - As per ID, continue with daptomycin day 5 out of 14 days. - Midline placed 11/18 - Follow up with social work regarding placement Hemorrhagic Stroke - Head MRI 11/01: right temporal and frontal parietal ischemic infarct with hemorrhagic component - Head and neck CT on 11/02: Critical stenosis origin R ICA. Greater than 75% stenosis origin L ICA. Mod-severe multifocal stenosis R ICA cavernous. No sign of stenosis L cavernous and intracranial ICA. Slight increase in stenosis of R M1 MCA. - Head CT 11/03: No change in large MCA distribution infarct, No evidence of midline shift. - Head CT 11/05: No acute intracranial hemorrhage. Re-demonstration of large chronic R MCA territory infarct - Lipid panel shows elevated triglycerides - Continue with aspirin, statin, and plavix. - Aspiration, fall, and seizure precautions - HOB at 30 degrees - Neuro checks Q4 - Dr. Agudelo and Dr. Martinez, Neurology and Neurosurgery, consulted for recommendations. Follow recommendations. Hypertension - Continue Lopressor 25 mg daily Hyperlipidemia - Elevated triglycerides on lipid panel - Continue with lipitor 40 mg daily Delirium-improving - Continue with geodon, ativan PRN. Xanax stopped. - Dr. Galarza, Psychiatry, was consulted for recommendations. Follow recommendations Diabetes Mellitus Type II -Medium SSI -Accuchecks ACHS Tobacco Abuse -Nicotine patch daily Insomnia -Continue with ambien GI prophylaxis: pepcid 20 mg Q12 DVT prophylaxis: SCD Disposition: PT recommended [facility] however due to patient's insurance, there is difficulty with placement at this time. Will follow-up with SW regarding recommendations Patient seen and case discussed in detail with Dr. Zoraida Quiroga PGY1 <Navi Conway - Last Filed: 11/19/18 17:42> Objective - Vital Signs/Intake and Output Vital Signs (last 24 hours): Temp Pulse Resp BP Pulse Ox 97.6 F 85 20 120/44 L 93 L 11/19/18 17:22 11/19/18 17:22 11/19/18 17:22 11/19/18 17:22 11/19/18 17:22 Intake and Output: 11/19/18 11/19/18 06:59 18:59 Intake Total 0 Balance 0 - Medications Medications: Current Medications Acetaminophen (Tylenol 325mg Tab) 650 mg PO Q6H PRN PRN Reason: Pain, moderate (4-7) Last Admin: 11/19/18 09:47 Dose: 650 mg Acetaminophen (Tylenol 325 Mg Supp) 325 mg RC Q6H PRN PRN Reason: Fever >100.4 F Aspirin (Aspirin Chewable) 81 mg PO DAILY [facility] Last Admin: 11/19/18 09:36 Dose: 81 mg Atorvastatin Calcium (Lipitor) 40 mg PO DIN [facility] Last Admin: 11/18/18 17:08 Dose: 40 mg Clopidogrel Bisulfate (Plavix) 75 mg PO DAILY [facility] Last Admin: 11/19/18 09:43 Dose: 75 mg Dextrose (Dextrose 50% Inj) 0 ml IV STAT PRN; Protocol PRN Reason: Hypoglycemia Protocol Famotidine (Pepcid) 20 mg PO Q12 [facility] Last Admin: 11/19/18 09:43 Dose: 20 mg Dextrose (Dextrose 5% In Water 1000 Ml) 1,000 mls @ 0 mls/hr IV .Q0M PRN; Protocol PRN Reason: Hypoglycemia Protocol Daptomycin 440 mg/ Sodium (Chloride) 100 mls @ 200 mls/hr IV Q24H [facility] Stop: 12/12/18 10:01 Last Admin: 11/19/18 09:40 Dose: 200 mls/hr Insulin Human Lispro (Humalog Med) 0 units SC ACHS [facility]; Protocol Last Admin: 11/19/18 07:52 Dose: 1 units Lorazepam (Ativan) 2 mg IVP Q6H PRN; Protocol PRN Reason: Agitation Last Admin: 11/19/18 11:03 Dose: 2 mg Metoprolol Tartrate (Lopressor) 25 mg PO BRKDIN [facility] Last Admin: 11/19/18 07:52 Dose: 25 mg Mupirocin (Bactroban Ointment) 0 gm TOP BID [facility] Last Admin: 11/19/18 09:36 Dose: 1 applic Nicotine (Nicoderm Cq) 1 patch TD DAILY [facility] Last Admin: 11/19/18 09:40 Dose: 1 patch Vitamin A (Vitamin A & D Oint Ud Foilpak) 1 ea TOP BID [facility] Last Admin: 11/19/18 09:43 Dose: 1 ea Ziprasidone (Geodon Cap) 20 mg PO HS [facility]; Protocol Last Admin: 11/18/18 21:55 Dose: 20 mg Ziprasidone (Geodon Cap) 20 mg PO DAILY [facility]; Protocol Last Admin: 11/19/18 09:40 Dose: 20 mg Zolpidem Tartrate (Ambien) 5 mg PO HS [facility]; Protocol Last Admin: 11/18/18 21:56 Dose: 5 mg - Labs Labs: 11/19/18 06:15 11/19/18 06:15 PT 12.7 SECONDS (9.4-12.5) H 11/02/18 13:38 INR 1.12 11/02/18 13:38 APTT 39.3 Seconds (26.9-38.3) H 11/02/18 13:38 Attending/Attestation - Attestation I have personally seen and examined this patient.: Yes I have fully participated in the care of the patient.: Yes I have reviewed all pertinent clinical information, including history, physical exam and plan: Yes Notes (Text): 11/19/18 17:41 53 year old male with past medical history of hypertension, diabetes, and CVA (07/2018) who was initially admitted under psychiatric unit for depression. He was transferred to medical floor for +MRI findings showing subacute to chronic ischemic infarction involving the right frontal, temporal and parietal lobes with accompanying hemorrhagic component. CTA head/neck showed critical stenosis of right ICA, >75% stenosis of left ICA and moderate to severe multifocal stenosis of the cavernous and supraclinoid segments of right ICA. Neurology has been following. Serial CT heads have been stable. Patient is on aspirin, plavix and statin. Neurosurgery and vascular evaluations were also appreciated; no acute interven tion planned. Recommended outpatient follow up. Continue with iv antibiotics for MRSA bacteremia. CARLY was negative for vegetations. Patient will need two weeks of antibiotics per ID. PT is following; recommended rehab. D/c planning to rehab facility which will accept iv daptomycin. SW noted today reviewed. Navi Conway MD Hospitalist.
[2018-11-19] MEDS: Insulin Lispro (humaLOG) MEDIUM Coverage SC SCH ×4 (07:52→21:26)
[2018-11-19] MEDS: Mupirocin 2% Ointment 15 GM TUBE TOP SCH ×2 (09:36→17:33)
[2018-11-19] MEDS: Vitamins A & D Oint UD Foilpak TOP SCH ×2 (09:43→17:37)
--- NOTE | 2018-11-19 15:10 | CP.PCM.PN ---
Subjective - Date & Time of Evaluation Date of Evaluation: 11/19/18 Time of Evaluation: 10:45 - Subjective Subjective: Comfortable, no fevers, not in distress. Objective - Vital Signs/Intake and Output Vital Signs (last 24 hours): Temp Pulse Resp BP Pulse Ox 97.9 F 76 20 156/64 H 96 11/18/18 07:56 11/18/18 08:30 11/18/18 07:56 11/18/18 08:30 11/18/18 07:56 Intake and Output: 11/18/18 11/18/18 06:59 18:59 Intake Total 360 0 Balance 360 0 - Medications Medications: Current Medications Acetaminophen (Tylenol 325mg Tab) 650 mg PO Q6H PRN PRN Reason: Pain, moderate (4-7) Last Admin: 11/14/18 18:47 Dose: 650 mg Acetaminophen (Tylenol 325 Mg Supp) 325 mg RC Q6H PRN PRN Reason: Fever >100.4 F Aspirin (Aspirin Chewable) 81 mg PO DAILY [facility] Last Admin: 11/18/18 09:27 Dose: 81 mg Atorvastatin Calcium (Lipitor) 40 mg PO DIN [facility] Last Admin: 11/17/18 17:51 Dose: 40 mg Clopidogrel Bisulfate (Plavix) 75 mg PO DAILY [facility] Last Admin: 11/18/18 09:28 Dose: 75 mg Dextrose (Dextrose 50% Inj) 0 ml IV STAT PRN; Protocol PRN Reason: Hypoglycemia Protocol Famotidine (Pepcid) 20 mg PO Q12 [facility] Last Admin: 11/18/18 09:28 Dose: 20 mg Dextrose (Dextrose 5% In Water 1000 Ml) 1,000 mls @ 0 mls/hr IV .Q0M PRN; Protocol PRN Reason: Hypoglycemia Protocol Daptomycin 440 mg/ Sodium (Chloride) 100 mls @ 200 mls/hr IV Q24H [facility] Stop: 12/12/18 10:01 Last Admin: 11/18/18 11:04 Dose: 200 mls/hr Insulin Human Lispro (Humalog Med) 0 units SC ACHS [facility]; Protocol Last Admin: 11/18/18 11:29 Dose: Not Given Lorazepam (Ativan) 2 mg IVP Q6H PRN; Protocol PRN Reason: Agitation Last Admin: 11/17/18 17:50 Dose: 2 mg Metoprolol Tartrate (Lopressor) 25 mg PO BRKDIN [facility] Last Admin: 11/18/18 08:30 Dose: 25 mg Mupirocin (Bactroban Ointment) 0 gm TOP BID [facility] Last Admin: 11/18/18 11:56 Dose: 1 applic Nicotine (Nicoderm Cq) 1 patch TD DAILY [facility] Last Admin: 11/18/18 09:28 Dose: 1 patch Vitamin A (Vitamin A & D Oint Ud Foilpak) 1 ea TOP BID [facility] Last Admin: 11/18/18 09:28 Dose: 1 ea Ziprasidone (Geodon Cap) 20 mg PO HS [facility]; Protocol Last Admin: 11/17/18 22:36 Dose: 20 mg Ziprasidone (Geodon Cap) 20 mg PO DAILY [facility]; Protocol Last Admin: 11/18/18 09:27 Dose: 20 mg Zolpidem Tartrate (Ambien) 5 mg PO HS [facility]; Protocol Last Admin: 11/17/18 22:55 Dose: 5 mg - Labs Labs: 11/18/18 08:20 11/18/18 08:20 PT 12.7 SECONDS (9.4-12.5) H 11/02/18 13:38 INR 1.12 11/02/18 13:38 APTT 39.3 Seconds (26.9-38.3) H 11/02/18 13:38 - Constitutional Appears: No Acute Distress, Chronically Ill - Head Exam Head Exam: NORMAL INSPECTION - Respiratory Exam Respiratory Exam: Decreased Breath Sounds - Cardiovascular Exam Cardiovascular Exam: +S1, +S2 - GI/Abdominal Exam GI & Abdominal Exam: Soft. absent: Tenderness Assessment and Plan - Assessment and Plan (Free Text) Plan: Asssessment sepsis due to Methicillin-resistant Staph aureus bacteremia in this patient with right parietal and temporal lobe infarct with hemorrhagic conversion; no evidenc e of endocarditis on CARLY done today in this patient with right upper arm cellulitis CVA DM HTN dyslipidemia depression significant smoking Plan will discontinue Cefepime for now and continue Daptomycin - day 6 from first negative blood cx; repeat blood cx are negative; reviewed CARLY results done by Dr. Godinez will need at least 2 weeks of antibiotics from the first negative blood cx will continue to monitor clinically
--- NOTE | 2018-11-19 19:03 | PN ---
DATE: 11/19/2018 SUBJECTIVE: The patient was seen today as per nursing report. The patient had less frequent agitation and less frequent as-needed medications. The patient presented to be lethargic, was able to open his eyes. The patient reported that he feels hopeless and depressed. The patient said that he wants to jump of the window. He is asking appropriate questions if this insurance underwriter can push him. At the same time, the patient had tendency of making such statements within couple of minutes, the patient would say that he feels fine. He does not feel depressed and he is more hopeful. The patient does not have any access or intent to kill himself. As per medical team report, the patient has sepsis due to MRSA. pt has stroke which affects frontotemporal area which could contribute to pt's current presentation such agitation/disinhibition. No evidence of endocarditis. The patient also has right upper arm cellulitis. As per Infectious Disease, the patient needs 2 weeks of IV antibiotics. PHYSICAL EXAMINATION VITAL SIGNS: Reviewed. Temperature 97.5, pulse is 80, blood pressure 130/77, respiration 19, oxygen saturation is 99. LABORATORY DATA: Labs reviewed. Most recent was from today. MEDICATIONS: Medications reviewed. The patient is on Tylenol, aspirin, Lipitor, Plavix, dextrose, Pepcid, Humalog, Ativan, Lopressor, Nicoderm, vitamin A, Geodon 20 mg at the nighttime and 20 mg daily and Ambien 5 mg at the nighttime for insomnia. MENTAL STATUS EXAMINATION: As this insurance underwriter described above, the patient presented to be lethargic. Opening his eyes. Mood described as depressed. Thought process concrete. Thought content, the patient said that he wants to . He wants to jump off the window, but at the same time, the patient does not have any access or intent or plan to kill himself. The patient has alternation of his statement from being hopeless and depressed to hopeful and feeling fine. IMPRESSION: The patient has mood disorder due to general medical condition. The patient did not have history of mental illness. The patient started to feel depressed right after stroke. At the present moment, the patient is in delirium stage which seems to be improving. PLAN: Geodon needs to continued, Ambien need to be continued, Ativan needs to be continued. Family involved. Antibiotic seems to be continued IV for 2 weeks. The patient has power of consumer attorney. We will follow up on this patient every other day. Next followup is 11/21/2018. Thank you very much for letting me participate in care of your patients. Savanah Galarza MD MTDJanelle
[2018-11-19 20:33] LABS: B2 GLYCOPROTEIN I AB(IGA) 71 SAU (<=20); B2 GLYCOPROTEIN I AB(IGG) <9 SGU (<=20); B2 GLYCOPROTEIN I AB(IGM) <9 SMU (<=20)
[2018-11-19 21:37] LABS: CARDIOLIPIN AB (IGA) <11 APL (<=11); CARDIOLIPIN AB (IGG) <14 GPL (<=14); CARDIOLIPIN AB (IGM) <12 MPL (<=12)
[2018-11-19 22:36] LABS: PHOSPHATIDYLSERINE AB IGA <20 U/mL (<20); PHOSPHATIDYLSERINE AB IGG <10 U/mL (<10); PHOSPHATIDYLSERINE AB IGM <25 U/mL (<25)
[2018-11-20] MEDS: Insulin Lispro (humaLOG) MEDIUM Coverage SC SCH ×4 (08:30→21:25)
[2018-11-20] MEDS: Mupirocin 2% Ointment 15 GM TUBE TOP SCH ×2 (11:01→18:16)
[2018-11-20] MEDS: Vitamins A & D Oint UD Foilpak TOP SCH ×2 (11:03→18:20)
--- NOTE | 2018-11-20 14:17 | CP.PCM.PN ---
Subjective - Date & Time of Evaluation Date of Evaluation: 11/20/18 Time of Evaluation: 11:00 - Subjective Subjective: Not in distress, no fevers, no nausea, no diarrhea. Objective - Vital Signs/Intake and Output Vital Signs (last 24 hours): Temp Pulse Resp BP Pulse Ox 97.5 F L 80 19 130/77 99 11/19/18 08:17 11/19/18 08:17 11/19/18 08:17 11/19/18 08:17 11/19/18 08:17 Intake and Output: 11/19/18 11/19/18 06:59 18:59 Intake Total 0 Balance 0 - Medications Medications: Current Medications Acetaminophen (Tylenol 325mg Tab) 650 mg PO Q6H PRN PRN Reason: Pain, moderate (4-7) Last Admin: 11/19/18 09:47 Dose: 650 mg Acetaminophen (Tylenol 325 Mg Supp) 325 mg RC Q6H PRN PRN Reason: Fever >100.4 F Aspirin (Aspirin Chewable) 81 mg PO DAILY [facility] Last Admin: 11/19/18 09:36 Dose: 81 mg Atorvastatin Calcium (Lipitor) 40 mg PO DIN [facility] Last Admin: 11/18/18 17:08 Dose: 40 mg Clopidogrel Bisulfate (Plavix) 75 mg PO DAILY [facility] Last Admin: 11/19/18 09:43 Dose: 75 mg Dextrose (Dextrose 50% Inj) 0 ml IV STAT PRN; Protocol PRN Reason: Hypoglycemia Protocol Famotidine (Pepcid) 20 mg PO Q12 [facility] Last Admin: 11/19/18 09:43 Dose: 20 mg Dextrose (Dextrose 5% In Water 1000 Ml) 1,000 mls @ 0 mls/hr IV .Q0M PRN; Protocol PRN Reason: Hypoglycemia Protocol Daptomycin 440 mg/ Sodium (Chloride) 100 mls @ 200 mls/hr IV Q24H [facility] Stop: 12/12/18 10:01 Last Admin: 11/19/18 09:40 Dose: 200 mls/hr Insulin Human Lispro (Humalog Med) 0 units SC ACHS [facility]; Protocol Last Admin: 11/19/18 07:52 Dose: 1 units Lorazepam (Ativan) 2 mg IVP Q6H PRN; Protocol PRN Reason: Agitation Last Admin: 11/19/18 11:03 Dose: 2 mg Metoprolol Tartrate (Lopressor) 25 mg PO BRKDIN [facility] Last Admin: 11/19/18 07:52 Dose: 25 mg Mupirocin (Bactroban Ointment) 0 gm TOP BID [facility] Last Admin: 11/19/18 09:36 Dose: 1 applic Nicotine (Nicoderm Cq) 1 patch TD DAILY [facility] Last Admin: 11/19/18 09:40 Dose: 1 patch Vitamin A (Vitamin A & D Oint Ud Foilpak) 1 ea TOP BID [facility] Last Admin: 11/19/18 09:43 Dose: 1 ea Ziprasidone (Geodon Cap) 20 mg PO HS [facility]; Protocol Last Admin: 11/18/18 21:55 Dose: 20 mg Ziprasidone (Geodon Cap) 20 mg PO DAILY [facility]; Protocol Last Admin: 11/19/18 09:40 Dose: 20 mg Zolpidem Tartrate (Ambien) 5 mg PO HS [facility]; Protocol Last Admin: 11/18/18 21:56 Dose: 5 mg - Labs Labs: 11/19/18 06:15 11/19/18 06:15 PT 12.7 SECONDS (9.4-12.5) H 11/02/18 13:38 INR 1.12 11/02/18 13:38 APTT 39.3 Seconds (26.9-38.3) H 11/02/18 13:38 - Constitutional Appears: No Acute Distress, Chronically Ill - Head Exam Head Exam: NORMAL INSPECTION - Neck Exam Neck Exam: absent: Lymphadenopathy, Meningismus - Respiratory Exam Respiratory Exam: Decreased Breath Sounds - Cardiovascular Exam Cardiovascular Exam: +S1, +S2 - GI/Abdominal Exam GI & Abdominal Exam: Soft. absent: Tenderness Assessment and Plan - Assessment and Plan (Free Text) Plan: Asssessment sepsis due to Methicillin-resistant Staph aureus bacteremia in this patient with right parietal and temporal lobe infarct with hemorrhagic conversion; no evidence of endocarditis on CARLY done today in this patient with right upper arm cellulitis CVA DM HTN dyslipidemia depression significant smoking Plan continue Daptomycin - day 7 from first negative blood cx; repeat blood cx are negative; reviewed CARLY results done by Dr. Godinez will need at least 2 weeks of antibiotics from the first negative blood cx will continue to monitor clinically
--- NOTE | 2018-11-20 15:20 | CP.PCM.PN ---
<Karoline Zambrano - Last Filed: 11/20/18 15:17> Subjective - Date & Time of Evaluation Date of Evaluation: 11/20/18 Time of Evaluation: 15:18 - Subjective Subjective: Karoline Zambrano, PGY-1, Internal Medicine Progress Note for Dr. Conway Patient was seen and evaluated at bedside. Patient had no acute overnight events except for hallucinations. This morning, patient is AAOx1 at bedside. He has no complaints today including headache, fever, chest pain, shortness of breath, increase in weakness, nausea, vomiting, constipation, diarrhea, dysuria, hematuria. Patient continues to have hallucinations and delusions most recently regarding his roommate being his son. 12-point ROS was unreliable due to patient's mental status. Objective - Vital Signs/Intake and Output Vital Signs (last 24 hours): Temp Pulse Resp BP Pulse Ox 97.6 F 75 18 142/90 97 11/20/18 06:00 11/20/18 06:00 11/20/18 06:00 11/20/18 06:00 11/20/18 06:00 Intake and Output: 11/20/18 11/20/18 06:59 18:59 Intake Total 840 0 Balance 840 0 - Medications Medications: Current Medications Acetaminophen (Tylenol 325mg Tab) 650 mg PO Q6H PRN PRN Reason: Pain, moderate (4-7) Last Admin: 11/20/18 02:10 Dose: 650 mg Acetaminophen (Tylenol 325 Mg Supp) 325 mg RC Q6H PRN PRN Reason: Fever >100.4 F Aspirin (Aspirin Chewable) 81 mg PO DAILY [facility] Last Admin: 11/20/18 11:00 Dose: 81 mg Atorvastatin Calcium (Lipitor) 40 mg PO DIN [facility] Last Admin: 11/19/18 17:36 Dose: 40 mg Clopidogrel Bisulfate (Plavix) 75 mg PO DAILY [facility] Last Admin: 11/20/18 11:02 Dose: 75 mg Dextrose (Dextrose 50% Inj) 0 ml IV STAT PRN; Protocol PRN Reason: Hypoglycemia Protocol Famotidine (Pepcid) 20 mg PO Q12 [facility] Last Admin: 11/20/18 11:03 Dose: 20 mg Dextrose (Dextrose 5% In Water 1000 Ml) 1,000 mls @ 0 mls/hr IV .Q0M PRN; Protocol PRN Reason: Hypoglycemia Protocol Daptomycin 440 mg/ Sodium (Chloride) 100 mls @ 200 mls/hr IV Q24H [facility] Stop: 12/12/18 10:01 Last Admin: 11/20/18 11:01 Dose: 200 mls/hr Insulin Human Lispro (Humalog Med) 0 units SC ACHS [facility]; Protocol Last Admin: 11/20/18 14:21 Dose: 3 units Lorazepam (Ativan) 2 mg IVP Q6H PRN; Protocol PRN Reason: Agitation Last Admin: 11/20/18 02:39 Dose: 2 mg Metoprolol Tartrate (Lopressor) 25 mg PO BRKDIN [facility] Last Admin: 11/20/18 11:05 Dose: 25 mg Mupirocin (Bactroban Ointment) 0 gm TOP BID [facility] Last Admin: 11/20/18 11:01 Dose: 1 applic Nicotine (Nicoderm Cq) 1 patch TD DAILY [facility] Last Admin: 11/20/18 11:03 Dose: 1 patch Vitamin A (Vitamin A & D Oint Ud Foilpak) 1 ea TOP BID [facility] Last Admin: 11/20/18 11:03 Dose: 1 ea Ziprasidone (Geodon Cap) 20 mg PO HS [facility]; Protocol Last Admin: 11/19/18 21:26 Dose: 20 mg Ziprasidone (Geodon Cap) 20 mg PO DAILY [facility]; Protocol Last Admin: 11/20/18 11:01 Dose: 20 mg Zolpidem Tartrate (Ambien) 5 mg PO HS [facility]; Protocol Last Admin: 11/19/18 21:25 Dose: 5 mg - Labs Labs: 11/19/18 06:15 11/19/18 06:15 PT 12.7 SECONDS (9.4-12.5) H 11/02/18 13:38 INR 1.12 11/02/18 13:38 APTT 39.3 Seconds (26.9-38.3) H 11/02/18 13:38 - Constitutional Appears: Non-toxic, No Acute Distress, Unkempt - Head Exam Head Exam: NORMOCEPHALIC. absent: ATRAUMATIC, NORMAL INSPECTION (laceration on right side of head) - Eye Exam Eye Exam: EOMI, PERRL - ENT Exam ENT Exam: Mucous Membranes Moist - Respiratory Exam Respiratory Exam: Clear to Ausculation Bilateral, NORMAL BREATHING PATTERN - Cardiovascular Exam Cardiovascular Exam: REGULAR RHYTHM, RRR - GI/Abdominal Exam GI & Abdominal Exam: Soft, Normal Bowel Sounds. absent: Tenderness - Extremities Exam Extremities Exam: Full ROM - Neurological Exam Neurological Exam: Alert, Awake, CN II-XII Intact (grossly). absent: Oriented x3 - Psychiatric Exam Psychiatric exam: Agitated Additional comments: patient has multiple hallucinations and delusions - Skin Skin Exam: Dry, Intact Assessment and Plan - Assessment and Plan (Free Text) Assessment: 53 year old male with past medical history of hypertension, diabetes mellitus type II, ischemic stroke (left sided paralysis), hyperlipidemia, and metal strapnal in left eye that was removed presents with right temporal and frontal pareital ischemic infarct with hemorrhagic component confirmed by MRI. Patient was treated in ICU with residual left sided weakness. Patient had Staph Aureus in both blood cultures. No evidence of endocarditis on CARLY with right upper arm cellulitis. As per ID, continue with daptomycin day 7 for a total of 2 weeks of antibiotics. Midline in place. Plan: Staph Aureus Bacteremia -Blood culture on 11/13: gram positive cocci. Repeat blood culture from 11/14 shows no growth for 5 days. -Procal: 0.09 -HIV negative -CARLY: shows no evidence of valve vegetation -As per ID, continue with daptomycin day 7 out of 14 days. -Midline in place Hemorrhagic Stroke -Head MRI 11/01: right temporal and frontal parietal ischemic infarct with hemorr hagic component. -Head and neck CT on 11/02: Critical stenosis origin R ICA. Greater than 75% stenosis origin L ICA. Mod-severe multifocal stenosis R ICA cavernous. No sign of stenosis L cavernous and intracranial ICA. Slight increase in stenosis of R M1 MCA. -Head CT 11/03: No change in large MCA distribution infarct, No evidence of midline shift. -Head CT 11/05: No acute intracranial hemorrhage. Re-demonstration of large chronic R MCA territory infarct -APA workup negative -Lipid panel shows elevated triglycerides -Continue with aspirin, statin, and plavix. -Aspiration, fall, and seizure precautions -HOB at 30 degrees -Neuro checks Q4 -Dr. Agudelo and Dr. Martinez, Neurology and Neurosurgery, consulted for recommendations. Follow recommendations. Hypertension -BP: 142/90 -Continue Lopressor 25 mg daily Hyperlipidemia -Elevated triglycerides on lipid panel -Continue with lipitor 40 mg daily Delirium-improving -Continue with geodon [facility], ativan PRN. Xanax stopped. -Dr. Galarza, Psychiatry, was consulted for recommendations. Follow recommendations Diabetes Mellitus Type II -Random glucose: 210 -Medium SSI -Accuchecks ACHS Tobacco Abuse -Nicotine patch daily Insomnia -Continue with ambien GI prophylaxis: pepcid 20 mg Q12 DVT prophylaxis: SCD Disposition: PT recommended [facility] however due to patient's insurance, there is difficulty with placement at this time regarding antibiotic, daptomycin a vailability at facility. Continue to follow up with Social work regarding possible placement at [facility]. They cannot accomodate due to isolation. They will follow up when isolation bed is available. Patient plan discussed with attending. <Navi Conway - Last Filed: 11/20/18 15:47> Objective - Vital Signs/Intake and Output Vital Signs (last 24 hours): Temp Pulse Resp BP Pulse Ox 97.6 F 75 18 142/90 97 11/20/18 06:00 11/20/18 06:00 11/20/18 06:00 11/20/18 06:00 11/20/18 06:00 Intake and Output: 11/20/18 11/20/18 06:59 18:59 Intake Total 840 0 Balance 840 0 - Medications Medications: Current Medications Acetaminophen (Tylenol 325mg Tab) 650 mg PO Q6H PRN PRN Reason: Pain, moderate (4-7) Last Admin: 11/20/18 02:10 Dose: 650 mg Acetaminophen (Tylenol 325 Mg Supp) 325 mg RC Q6H PRN PRN Reason: Fever >100.4 F Aspirin (Aspirin Chewable) 81 mg PO DAILY [facility] Last Admin: 11/20/18 11:00 Dose: 81 mg Atorvastatin Calcium (Lipitor) 40 mg PO DIN [facility] Last Admin: 11/19/18 17:36 Dose: 40 mg Clopidogrel Bisulfate (Plavix) 75 mg PO DAILY [facility] Last Admin: 11/20/18 11:02 Dose: 75 mg Dextrose (Dextrose 50% Inj) 0 ml IV STAT PRN; Protocol PRN Reason: Hypoglycemia Protocol Famotidine (Pepcid) 20 mg PO Q12 [facility] Last Admin: 11/20/18 11:03 Dose: 20 mg Dextrose (Dextrose 5% In Water 1000 Ml) 1,000 mls @ 0 mls/hr IV .Q0M PRN; Protocol PRN Reason: Hypoglycemia Protocol Daptomycin 440 mg/ Sodium (Chloride) 100 mls @ 200 mls/hr IV Q24H [facility] Stop: 12/12/18 10:01 Last Admin: 11/20/18 11:01 Dose: 200 mls/hr Insulin Human Lispro (Humalog Med) 0 units SC ACHS [facility]; Protocol Last Admin: 11/20/18 14:21 Dose: 3 units Lorazepam (Ativan) 2 mg IVP Q6H PRN; Protocol PRN Reason: Agitation Last Admin: 11/20/18 02:39 Dose: 2 mg Metoprolol Tartrate (Lopressor) 25 mg PO BRKDIN [facility] Last Admin: 11/20/18 11:05 Dose: 25 mg Mupirocin (Bactroban Ointment) 0 gm TOP BID [facility] Last Admin: 11/20/18 11:01 Dose: 1 applic Nicotine (Nicoderm Cq) 1 patch TD DAILY [facility] Last Admin: 11/20/18 11:03 Dose: 1 patch Vitamin A (Vitamin A & D Oint Ud Foilpak) 1 ea TOP BID [facility] Last Admin: 11/20/18 11:03 Dose: 1 ea Ziprasidone (Geodon Cap) 20 mg PO HS [facility]; Protocol Last Admin: 11/19/18 21:26 Dose: 20 mg Ziprasidone (Geodon Cap) 20 mg PO DAILY [facility]; Protocol Last Admin: 11/20/18 11:01 Dose: 20 mg Zolpidem Tartrate (Ambien) 5 mg PO HS [facility]; Protocol Last Admin: 11/19/18 21:25 Dose: 5 mg - Labs Labs: 11/19/18 06:15 11/19/18 06:15 PT 12.7 SECONDS (9.4-12.5) H 11/02/18 13:38 INR 1.12 11/02/18 13:38 APTT 39.3 Seconds (26.9-38.3) H 11/02/18 13:38 Attending/Attestation - Attestation I have personally seen and examined this patient.: Yes I have fully participated in the care of the patient.: Yes I have reviewed all pertinent clinical information, including history, physical exam and plan: Yes Notes (Text): 11/20/18 15:44 53 year old male with past medical history of hypertension, diabetes, and CVA (07/2018) who was initially admitted under psychiatric unit for depression. He was transferred to medical floor for +MRI findings showing subacute to chronic ischemic infarction involving the right frontal, temporal and parietal lobes with accompanying hemorrhagic component. CTA head/neck showed critical stenosis of right ICA, >75% stenosis of left ICA and moderate to severe multifocal stenosis of the cavernous and supraclinoid segments of right ICA. Neurology has been following. Serial CT heads have been stable. Patient is on aspirin, plavix and statin. Neurosurgery and vascular evaluations were also appreciated; no acute intervention planned. Recommended outpatient follow up. Patient has periods of confusion and hallucination. He is on ativan prn and geodon. Psychiatry is following. Continue with iv antibiotics for MRSA bacteremia. CARLY was negative for vegetations. Patient will need two weeks of antibiotics per ID. PT is following; recommended rehab. D/c planning to rehab facility which will accept iv daptomycin. Navi Conway MD Hospitalist.
[2018-11-21 07:03] LABS: BASO # 0.07 K/mm3 (0.0-2.0); BASO % 0.9 % (0.0-3.0); EOS # 0.4 (0.0-0.7); EOS % 4.7 % (1.5-5.0); HEMOGLOBIN 12.5 g/dL (14.0-18.0); LYMPH # 3.2 (1.2-3.4); LYMPH % 41.4 % (22.0-35.0); MEAN CELL VOLUME 84.7 fl (80.0-105.0); MEAN CORPUSCULAR HEMOGLOBIN 26.6 pg (25.0-35.0); MEAN CORPUSCULAR HGB CONC 31.4 g/dl (31.0-37.0); MEAN PLATELET VOLUME 9.6 fl (7.0-11.0); MONO # 0.6 (0.1-0.6); MONO % 7.8 % (1.0-6.0); RBC 4.7 10^6/uL (3.5-6.1); RED CELL DISTRIBUTION WIDTH 14.9 % (11.5-14.5); WHITE BLOOD COUNT 7.6 10^3/uL (4.5-11.0)
[2018-11-21 07:41] LABS: ALB/GLOB RATIO 1.2 (1.1-1.8); ALBUMIN 4.3 g/dL (3.0-4.8); ALT/SGPT 39 U/L (7-56); AST/SGOT 50 U/L (17-59); BLOOD UREA NITROGEN 20 mg/dL (7-21); CALCIUM 9.9 mg/dL (8.4-10.5); GFR NON-AFRICAN AMERICAN > 60
[2018-11-21] MEDS: Insulin Lispro (humaLOG) MEDIUM Coverage SC SCH ×3 (08:14→17:13)
--- NOTE | 2018-11-21 09:39 | CP.PCM.PN ---
Subjective - Date & Time of Evaluation Date of Evaluation: 11/21/18 Time of Evaluation: 09:00 - Subjective Subjective: Afebrile, no headache, no arm pain, no fevers, no nausea or diarrhea. Objective - Vital Signs/Intake and Output Vital Signs (last 24 hours): Temp Pulse Resp BP Pulse Ox 97.6 F 75 18 142/90 97 11/20/18 06:00 11/20/18 06:00 11/20/18 06:00 11/20/18 06:00 11/20/18 06:00 Intake and Output: 11/20/18 11/20/18 06:59 18:59 Intake Total 840 0 Balance 840 0 - Medications Medications: Current Medications Acetaminophen (Tylenol 325mg Tab) 650 mg PO Q6H PRN PRN Reason: Pain, moderate (4-7) Last Admin: 11/20/18 02:10 Dose: 650 mg Acetaminophen (Tylenol 325 Mg Supp) 325 mg RC Q6H PRN PRN Reason: Fever >100.4 F Aspirin (Aspirin Chewable) 81 mg PO DAILY [facility] Last Admin: 11/20/18 11:00 Dose: 81 mg Atorvastatin Calcium (Lipitor) 40 mg PO DIN [facility] Last Admin: 11/19/18 17:36 Dose: 40 mg Clopidogrel Bisulfate (Plavix) 75 mg PO DAILY [facility] Last Admin: 11/20/18 11:02 Dose: 75 mg Dextrose (Dextrose 50% Inj) 0 ml IV STAT PRN; Protocol PRN Reason: Hypoglycemia Protocol Famotidine (Pepcid) 20 mg PO Q12 [facility] Last Admin: 11/20/18 11:03 Dose: 20 mg Dextrose (Dextrose 5% In Water 1000 Ml) 1,000 mls @ 0 mls/hr IV .Q0M PRN; Protocol PRN Reason: Hypoglycemia Protocol Daptomycin 440 mg/ Sodium (Chloride) 100 mls @ 200 mls/hr IV Q24H [facility] Stop: 12/12/18 10:01 Last Admin: 11/20/18 11:01 Dose: 200 mls/hr Insulin Human Lispro (Humalog Med) 0 units SC ACHS [facility]; Protocol Last Admin: 11/20/18 08:30 Dose: 1 units Lorazepam (Ativan) 2 mg IVP Q6H PRN; Protocol PRN Reason: Agitation Last Admin: 11/20/18 02:39 Dose: 2 mg Metoprolol Tartrate (Lopressor) 25 mg PO BRKDIN [facility] Last Admin: 11/20/18 11:05 Dose: 25 mg Mupirocin (Bactroban Ointment) 0 gm TOP BID [facility] Last Admin: 11/20/18 11:01 Dose: 1 applic Nicotine (Nicoderm Cq) 1 patch TD DAILY [facility] Last Admin: 11/20/18 11:03 Dose: 1 patch Vitamin A (Vitamin A & D Oint Ud Foilpak) 1 ea TOP BID [facility] Last Admin: 11/20/18 11:03 Dose: 1 ea Ziprasidone (Geodon Cap) 20 mg PO HS [facility]; Protocol Last Admin: 11/19/18 21:26 Dose: 20 mg Ziprasidone (Geodon Cap) 20 mg PO DAILY [facility]; Protocol Last Admin: 11/20/18 11:01 Dose: 20 mg Zolpidem Tartrate (Ambien) 5 mg PO HS [facility]; Protocol Last Admin: 11/19/18 21:25 Dose: 5 mg - Labs Labs: 11/19/18 06:15 11/19/18 06:15 PT 12.7 SECONDS (9.4-12.5) H 11/02/18 13:38 INR 1.12 11/02/18 13:38 APTT 39.3 Seconds (26.9-38.3) H 11/02/18 13:38 - Constitutional Appears: No Acute Distress, Chronically Ill - Head Exam Head Exam: NORMAL INSPECTION - Neck Exam Neck Exam: absent: Meningismus - Respiratory Exam Respiratory Exam: Decreased Breath Sounds - Cardiovascular Exam Cardiovascular Exam: +S1, +S2 - GI/Abdominal Exam GI & Abdominal Exam: Soft. absent: Tenderness Assessment and Plan - Assessment and Plan (Free Text) Plan: Asssessment sepsis due to Methicillin-resistant Staph aureus bacteremia in this patient with right parietal and temporal lobe infarct with hemorrhagic conversion; no evidence of endocarditis on CARLY done today in this patient with right upper arm cellulitis CVA DM HTN dyslipidemia depression significant smoking Plan continue Daptomycin - day 8 from first negative blood cx; repeat blood cx are negative; reviewed CARLY results done by Dr. Godinez will need at least 2 weeks of antibiotics from the first negative blood cx will continue to monitor clinically
[2018-11-21] MEDS: Vitamins A & D Oint UD Foilpak TOP SCH (10:41)
--- NOTE | 2018-11-21 12:52 | CP.PCM.PN ---
<Karoline Zambrano - Last Filed: 11/21/18 12:49> Subjective - Date & Time of Evaluation Date of Evaluation: 11/21/18 Time of Evaluation: 12:49 - Subjective Subjective: Karoline Zambrano, PGY-1, Internal Medicine Progress Note for Dr. Conway Patient was seen and evaluated at bedside. Patient had no acute overnight events except for hallucinations. This morning, patient is AAOx1 at bedside. He has no complaints today including headache, fever, chest pain, shortness of breath, increase in weakness, nausea, vomiting, constipation, diarrhea, dysuria, hematuria. Patient continues to have hallucinations and delusions. 12-point ROS was unreliable due to patient's mental status. Objective - Vital Signs/Intake and Output Vital Signs (last 24 hours): Temp Pulse Resp BP Pulse Ox 97.5 F L 78 19 156/96 H 98 11/21/18 06:00 11/21/18 08:11 11/21/18 06:00 11/21/18 08:11 11/21/18 06:00 - Medications Medications: Current Medications Acetaminophen (Tylenol 325mg Tab) 650 mg PO Q6H PRN PRN Reason: Pain, moderate (4-7) Last Admin: 11/20/18 19:41 Dose: 650 mg Acetaminophen (Tylenol 325 Mg Supp) 325 mg RC Q6H PRN PRN Reason: Fever >100.4 F Aspirin (Aspirin Chewable) 81 mg PO DAILY [facility] Last Admin: 11/21/18 10:39 Dose: 81 mg Atorvastatin Calcium (Lipitor) 40 mg PO DIN [facility] Last Admin: 11/20/18 18:19 Dose: 40 mg Clopidogrel Bisulfate (Plavix) 75 mg PO DAILY [facility] Last Admin: 11/21/18 10:39 Dose: 75 mg Dextrose (Dextrose 50% Inj) 0 ml IV STAT PRN; Protocol PRN Reason: Hypoglycemia Protocol Famotidine (Pepcid) 20 mg PO Q12 [facility] Last Admin: 11/21/18 10:41 Dose: 20 mg Dextrose (Dextrose 5% In Water 1000 Ml) 1,000 mls @ 0 mls/hr IV .Q0M PRN; Protocol PRN Reason: Hypoglycemia Protocol Daptomycin 440 mg/ Sodium (Chloride) 100 mls @ 200 mls/hr IV Q24H [facility] Stop: 12/12/18 10:01 Last Admin: 11/21/18 10:40 Dose: 200 mls/hr Insulin Human Lispro (Humalog Med) 0 units SC ACHS [facility]; Protocol Last Admin: 11/21/18 11:45 Dose: 1 units Lorazepam (Ativan) 2 mg IVP Q6H PRN; Protocol PRN Reason: Agitation Last Admin: 11/20/18 19:41 Dose: 2 mg Metoprolol Tartrate (Lopressor) 25 mg PO BRKDIN [facility] Last Admin: 11/21/18 08:11 Dose: 25 mg Nicotine (Nicoderm Cq) 1 patch TD DAILY [facility] Last Admin: 11/21/18 10:41 Dose: 1 patch Vitamin A (Vitamin A & D Oint Ud Foilpak) 1 ea TOP BID [facility] Last Admin: 11/21/18 10:41 Dose: 1 ea Ziprasidone (Geodon Cap) 20 mg PO HS [facility]; Protocol Last Admin: 11/20/18 21:24 Dose: 20 mg Ziprasidone (Geodon Cap) 20 mg PO DAILY [facility]; Protocol Last Admin: 11/21/18 10:39 Dose: 20 mg Zolpidem Tartrate (Ambien) 10 mg PO HS [facility]; Protocol - Labs Labs: 11/21/18 06:00 11/21/18 06:00 PT 12.7 SECONDS (9.4-12.5) H 11/02/18 13:38 INR 1.12 11/02/18 13:38 APTT 39.3 Seconds (26.9-38.3) H 11/02/18 13:38 - Constitutional Appears: Non-toxic, No Acute Distress, Unkempt - Head Exam Head Exam: NORMOCEPHALIC - Eye Exam Eye Exam: EOMI, PERRL - ENT Exam ENT Exam: Mucous Membranes Moist - Respiratory Exam Respiratory Exam: Clear to Ausculation Bilateral, NORMAL BREATHING PATTERN - Cardiovascular Exam Cardiovascular Exam: REGULAR RHYTHM, RRR - GI/Abdominal Exam GI & Abdominal Exam: Soft, Normal Bowel Sounds. absent: Tenderness - Extremities Exam Extremities Exam: Full ROM - Neurological Exam Neurological Exam: Alert, Awake, CN II-XII Intact (grossly). absent: Oriented x 3 - Psychiatric Exam Psychiatric exam: Agitated, Improved Additional comments: patient has multiple hallucinations and delusions - Skin Skin Exam: Dry, Intact Assessment and Plan - Assessment and Plan (Free Text) Assessment: 53 year old male with past medical history of hypertension, diabetes mellitus type II, ischemic stroke (left sided paralysis), hyperlipidemia, and metal strapnal in left eye that was removed presents with right temporal and frontal pareital ischemic infarct with hemorrhagic component confirmed by MRI. Patient was treated in ICU with residual left sided weakness. Patient had Staph Aureus in both blood cultures. No evidence of endocarditis on CARLY with right upper arm cellulitis. As per ID, continue with daptomycin day 8 for a total of 2 weeks of antibiotics. Midline in place. Plan: Staph Aureus Bacteremia -Blood culture on 11/13: gram positive cocci. Repeat blood culture from 11/14 shows no growth for 5 days. -Procal: 0.09 -HIV negative -CARLY: shows no evidence of valve vegetation -As per ID, continue with daptomycin day 8 out of 14 days. -Midline in place Hemorrhagic Stroke -Head MRI 11/01: right temporal and frontal parietal ischemic infarct with hemorrhagic component. -Head and neck CT on 11/02: Critical stenosis origin R ICA. Greater than 75% stenosis origin L ICA. Mod-severe multifocal stenosis R ICA cavernous. No sign of stenosis L cavernous and intracranial ICA. Slight increase in stenosis of R M1 MCA. -Head CT 11/03: No change in large MCA distribution infarct, No evidence of midline shift. -Head CT 11/05: No acute intracranial hemorrhage. Re-demonstration of large chronic R MCA territory infarct -APA workup negative -Lipid panel shows elevated triglycerides -Continue with aspirin, statin, and plavix. -Aspiration, fall, and seizure precautions -HOB at 30 degrees -Neuro checks Q4 -Dr. Agudelo and Dr. Martinez, Neurology and Neurosurgery, consulted for recommendations. Follow recommendations. Hypertension -BP: 156/96 -Continue Lopressor 25 mg daily Hyperlipidemia -Elevated triglycerides on lipid panel -Continue with lipitor 40 mg daily Delirium-improving -Continue with geodon [facility], ativan PRN. Xanax stopped. -Dr. Galarza, Psychiatry, was consulted for recommendations. Follow recommendations Diabetes Mellitus Type II -Random glucose: 176 -Medium SSI -Accuchecks ACHS Tobacco Abuse -Nicotine patch daily Insomnia -Continue with ambien New hallucinations and delusions: -Will follow up with Psychiatry regarding recommendations for new hallucinations. Patient currently on scheduled geodon, antipsychotic. While patient is hallucinating, not currently causing disturbances. GI prophylaxis: pepcid 20 mg Q12 DVT prophylaxis: SCD Disposition: PT recommended [facility] however due to patient's insurance, there is difficulty with placement at this time regarding antibiotic, daptomycin availability at facility. Continue to follow up with Social work regarding possible placement at [facility]. They cannot accomodate due to isolation. They will follow up when isolation bed is available. Patient plan discussed with attending. <Navi Conway - Last Filed: 11/21/18 14:49> Objective - Vital Signs/Intake and Output Vital Signs (last 24 hours): Temp Pulse Resp BP Pulse Ox 97.5 F L 78 19 156/96 H 98 11/21/18 06:00 11/21/18 08:11 11/21/18 06:00 11/21/18 08:11 11/21/18 06:00 - Medications Medications: Current Medications Acetaminophen (Tylenol 325mg Tab) 650 mg PO Q6H PRN PRN Reason: Pain, moderate (4-7) Last Admin: 11/20/18 19:41 Dose: 650 mg Acetaminophen (Tylenol 325 Mg Supp) 325 mg RC Q6H PRN PRN Reason: Fever >100.4 F Aspirin (Aspirin Chewable) 81 mg PO DAILY [facility] Last Admin: 11/21/18 10:39 Dose: 81 mg Atorvastatin Calcium (Lipitor) 40 mg PO DIN [facility] Last Admin: 11/20/18 18:19 Dose: 40 mg Clopidogrel Bisulfate (Plavix) 75 mg PO DAILY [facility] Last Admin: 11/21/18 10:39 Dose: 75 mg Dextrose (Dextrose 50% Inj) 0 ml IV STAT PRN; Protocol PRN Reason: Hypoglycemia Protocol Famotidine (Pepcid) 20 mg PO Q12 [facility] Last Admin: 11/21/18 10:41 Dose: 20 mg Dextrose (Dextrose 5% In Water 1000 Ml) 1,000 mls @ 0 mls/hr IV .Q0M PRN; Protocol PRN Reason: Hypoglycemia Protocol Daptomycin 440 mg/ Sodium (Chloride) 100 mls @ 200 mls/hr IV Q24H [facility] Stop: 12/12/18 10:01 Last Admin: 11/21/18 10:40 Dose: 200 mls/hr Insulin Human Lispro (Humalog Med) 0 units SC ACHS [facility]; Protocol Last Admin: 11/21/18 11:45 Dose: 1 units Lorazepam (Ativan) 2 mg IVP Q6H PRN; Protocol PRN Reason: Agitation Last Admin: 11/20/18 19:41 Dose: 2 mg Metoprolol Tartrate (Lopressor) 25 mg PO BRKDIN [facility] Last Admin: 11/21/18 08:11 Dose: 25 mg Nicotine (Nicoderm Cq) 1 patch TD DAILY [facility] Last Admin: 11/21/18 10:41 Dose: 1 patch Vitamin A (Vitamin A & D Oint Ud Foilpak) 1 ea TOP BID [facility] Last Admin: 11/21/18 10:41 Dose: 1 ea Ziprasidone (Geodon Cap) 20 mg PO HS [facility]; Protocol Last Admin: 11/20/18 21:24 Dose: 20 mg Ziprasidone (Geodon Cap) 20 mg PO DAILY [facility]; Protocol Last Admin: 11/21/18 10:39 Dose: 20 mg Zolpidem Tartrate (Ambien) 10 mg PO HS [facility]; Protocol - Labs Labs: 11/21/18 06:00 11/21/18 06:00 PT 12.7 SECONDS (9.4-12.5) H 11/02/18 13:38 INR 1.12 11/02/18 13:38 APTT 39.3 Seconds (26.9-38.3) H 11/02/18 13:38 Attending/Attestation - Attestation I have personally seen and examined this patient.: Yes I have fully participated in the care of the patient.: Yes I have reviewed all pertinent clinical information, including history, physical exam and plan: Yes Notes (Text): 11/21/18 14:45 53 year old male with past medical history of hypertension, diabetes, and CVA (07/2018) who was initially admitted under psychiatric unit for depression. He was transferred to medical floor for +MRI findings showing subacute to chronic ischemic infarction involving the right frontal, temporal and parietal lobes with accompanying hemorrhagic component. CTA head/neck showed critical stenosis of right ICA, >75% stenosis of left ICA and moderate to severe multifocal stenosis of the cavernous and supraclinoid segments of right ICA. Neurology has been following. Serial CT heads have been stable. Patient is on aspirin, plavix and statin. Neurosurgery and vascular evaluations were also appreciated; no acute interve ntion planned. Recommended outpatient follow up. Patient has periods of confusion and hallucination which has improved today. He is on ativan prn and geodon. Psychiatry is following. Continue with iv antibiotics for MRSA bacteremia. CARLY was negative for vegetations. Patient will need two weeks of antibiotics per ID. PT is following; recommended rehab. D/c planning to rehab facility which will accept iv daptomycin. Will follow up with CMx/Sw tomorrow. Navi Conway MD Hospitalist.
--- NOTE | 2018-11-21 20:29 | CON ---
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 The patient is being monitored by psychiatry on the medical floor after he was transferred from the psychiatric unit to be managed medically s/p multiple strokes. I reviewed Dr. Galarza's notes which indicated the patient continues to be delirious with waxing and waning periods of recognition and coherency. When I met with him at bedside this morning, he is oriented to year, location, circumstances; however, said it was 09/2018. The patient denies having any suicidal thoughts, indicated that he wants to get better, admits that it has been very difficult year for him. However, he is hopeful about getting better. Denies having any thoughts of harming himself; denies any hallucinations. His thought process is coherent and he seems to be engaged, related and reactive than our prior encounters. Although he does not remember this provider, he does remember that he has suffered multiple stroke and delirium and apologizes for the effect on his memory. There have been no major behavioral problems recently. He has been agreeable and cooperative with medical recommendation. Labs and vitals are reviewed. RELEVANT PSYCHIATRIC MEDICATIONS: Include Ativan 2 mg IV every 6 hours p.r.n., Geodon 20 mg at bedtime and 20 mg daily, and Ambien 5 mg at bedtime scheduled. 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 RECOMMENDATIONS: We will continue with current treatment and plan except for small increase in Ambien to 10 mg HS as patient reported restless sleep. We will continue to follow up with him every other day. Next followup will be 11/23/2018. Ryan Foster MD [facility]
[2018-11-22 06:38] LABS: BASO # 0.07 K/mm3 (0.0-2.0); BASO % 0.9 % (0.0-3.0); EOS # 0.3 (0.0-0.7); EOS % 3.2 % (1.5-5.0); HEMOGLOBIN 12.7 g/dL (14.0-18.0); LYMPH # 2.9 (1.2-3.4); LYMPH % 34.8 % (22.0-35.0); MEAN CELL VOLUME 84.7 fl (80.0-105.0); MEAN CORPUSCULAR HGB CONC 31.8 g/dl (31.0-37.0); MEAN PLATELET VOLUME 9.7 fl (7.0-11.0); MONO # 0.6 (0.1-0.6); MONO % 7.1 % (1.0-6.0); RBC 4.71 10^6/uL (3.5-6.1); WHITE BLOOD COUNT 8.2 10^3/uL (4.5-11.0)
[2018-11-22 06:59] LABS: ALB/GLOB RATIO 1.2 (1.1-1.8); ALBUMIN 4.4 g/dL (3.0-4.8); ALT/SGPT 40 U/L (7-56); AST/SGOT 41 U/L (17-59); BLOOD UREA NITROGEN 21 mg/dL (7-21); CALCIUM 9.8 mg/dL (8.4-10.5); GFR NON-AFRICAN AMERICAN > 60
[2018-11-22] MEDS: Insulin Lispro (humaLOG) MEDIUM Coverage SC SCH ×4 (08:14→22:00)
[2018-11-22] MEDS: Vitamins A & D Oint UD Foilpak TOP SCH ×2 (11:31→17:12)
--- NOTE | 2018-11-22 14:47 | CP.PCM.PN ---
<Karoline Zambrano - Last Filed: 11/22/18 14:43> Subjective - Date & Time of Evaluation Date of Evaluation: 11/22/18 Time of Evaluation: 14:44 - Subjective Subjective: Karoline Zambrano, PGY-1, Internal Medicine Progress Note for Dr. Conway Patient was seen and evaluated at bedside. Patient had no acute overnight events except for hallucinations. This morning, patient is AAOx3 at bedside. Patient reports suicidal ideations this morning. Patient was subsequently placed on 1:1. Patient complains of left sided weakness which has continued from post stroke. He denies headache, fever, chest pain, shortness of breath, increase in we akness, nausea, vomiting, constipation, diarrhea, dysuria, hematuria. Patient continues to have hallucinations and delusions. 12-point ROS was unreliable due to patient's mental status. Objective - Vital Signs/Intake and Output Vital Signs (last 24 hours): Temp Pulse Resp BP Pulse Ox 97.6 F 92 H 20 158/98 H 100 11/22/18 08:21 11/22/18 08:21 11/22/18 08:21 11/22/18 08:21 11/22/18 08:21 - Medications Medications: Current Medications Acetaminophen (Tylenol 325mg Tab) 650 mg PO Q6H PRN PRN Reason: Pain, moderate (4-7) Last Admin: 11/22/18 08:15 Dose: 650 mg Acetaminophen (Tylenol 325 Mg Supp) 325 mg RC Q6H PRN PRN Reason: Fever >100.4 F Aspirin (Aspirin Chewable) 81 mg PO DAILY [facility] Last Admin: 11/22/18 11:28 Dose: 81 mg Atorvastatin Calcium (Lipitor) 40 mg PO DIN [facility] Last Admin: 11/21/18 17:12 Dose: 40 mg Clopidogrel Bisulfate (Plavix) 75 mg PO DAILY [facility] Last Admin: 11/22/18 11:30 Dose: 75 mg Dextrose (Dextrose 50% Inj) 0 ml IV STAT PRN; Protocol PRN Reason: Hypoglycemia Protocol Famotidine (Pepcid) 20 mg PO Q12 [facility] Last Admin: 11/22/18 11:30 Dose: 20 mg Dextrose (Dextrose 5% In Water 1000 Ml) 1,000 mls @ 0 mls/hr IV .Q0M PRN; Pro tocol PRN Reason: Hypoglycemia Protocol Daptomycin 440 mg/ Sodium (Chloride) 100 mls @ 200 mls/hr IV Q24H [facility] Stop: 12/12/18 10:01 Last Admin: 11/22/18 11:29 Dose: 200 mls/hr Insulin Human Lispro (Humalog Med) 0 units SC ACHS [facility]; Protocol Last Admin: 11/22/18 12:24 Dose: 5 units Lorazepam (Ativan) 2 mg IVP Q6H PRN; Protocol PRN Reason: Agitation Last Admin: 11/20/18 19:41 Dose: 2 mg Metoprolol Tartrate (Lopressor) 25 mg PO BRKDIN [facility]IP Last Admin: 11/22/18 08:14 Dose: 25 mg Mupirocin (Bactroban Ointment) 1 gm NS BID [facility] Stop: 11/27/18 18:01 Nicotine (Nicoderm Cq) 1 patch TD DAILY [facility] Last Admin: 11/22/18 11:29 Dose: 1 patch Vitamin A (Vitamin A & D Oint Ud Foilpak) 1 ea TOP BID [facility] Last Admin: 11/22/18 11:31 Dose: Not Given Ziprasidone (Geodon Cap) 20 mg PO HS [facility]; Protocol Last Admin: 11/20/18 21:24 Dose: 20 mg Ziprasidone (Geodon Cap) 20 mg PO DAILY [facility]; Protocol Last Admin: 11/22/18 11:29 Dose: 20 mg Zolpidem Tartrate (Ambien) 10 mg PO HS [facility]; Protocol Last Admin: 11/21/18 22:35 Dose: 10 mg - Labs Labs: 11/22/18 06:15 11/22/18 06:15 PT 12.7 SECONDS (9.4-12.5) H 11/02/18 13:38 INR 1.12 11/02/18 13:38 APTT 39.3 Seconds (26.9-38.3) H 11/02/18 13:38 - Constitutional Appears: Non-toxic, No Acute Distress, Unkempt - Head Exam Head Exam: NORMOCEPHALIC - Eye Exam Eye Exam: EOMI, PERRL - ENT Exam ENT Exam: Mucous Membranes Moist - Respiratory Exam Respiratory Exam: Clear to Ausculation Bilateral, NORMAL BREATHING PATTERN - Cardiovascular Exam Cardiovascular Exam: REGULAR RHYTHM, RRR - GI/Abdominal Exam GI & Abdominal Exam: Soft, Normal Bowel Sounds. absent: Tenderness - Extremities Exam Extremities Exam: Full ROM - Neurological Exam Neurological Exam: Alert, Awake, CN II-XII Intact (grossly). AAOx3 but at times is also AAOx1 - Psychiatric Exam Psychiatric exam: Agitated, Improved Additional comments: patient has multiple hallucinations and delusions - Skin Skin Exam: Dry, Intact Assessment and Plan - Assessment and Plan (Free Text) Assessment: 53 year old male with past medical history of hypertension, diabetes mellitus type II, ischemic stroke (left sided paralysis), hyperlipidemia, and metal strapnal in left eye that was removed presents with right temporal and frontal pareital ischemic infarct with hemorrhagic component confirmed by MRI. Patient was treated in ICU with residual left sided weakness. Patient had Staph Aureus in both blood cultures. No evidence of endocarditis on CARLY with right upper arm cellulitis. Repeat blood culture has been negative. As per ID, continue with daptomycin day 9 for a total of 2 weeks of antibiotics. Midline in place. Plan: Staph Aureus Bacteremia -Blood culture on 11/13: MRSA. Repeat blood culture from 11/14 shows no growth for 5 days. -MRSA of nares is positive. Started bactroban ointment today day 1 of 5 and will recheck nares for MRSA -Procal: 0.09 -HIV negative -CARLY: shows no evidence of valve vegetation -As per ID, continue with daptomycin day 9 out of 14 days. -Midline in place Hemorrhagic Stroke -Head MRI 11/01: right temporal and frontal parietal ischemic infarct with hemorrhagic component. -Head and neck CT on 11/02: Critical stenosis origin R ICA. Greater than 75% stenosis origin L ICA. Mod-severe multifocal stenosis R ICA cavernous. No sign of stenosis L cavernous and intracranial ICA. Slight increase in stenosis of R M1 MCA. -Head CT 11/03: No change in large MCA distribution infarct, No evidence of midline shift. -Head CT 11/05: No acute intracranial hemorrhage. Re-demonstration of large chronic R MCA territory infarct -APA workup negative -Lipid panel shows elevated triglycerides -Continue with aspirin, statin, and plavix. -Aspiration, fall, and seizure precautions -HOB at 30 degrees -Neuro checks Q4 -Dr. Agudelo and Dr. Martinez, Neurology and Neurosurgery, consulted for recommendations. Follow recommendations. Hypertension -BP: 158/98 -Continue Lopressor 25 mg daily Hyperlipidemia -Elevated triglycerides on lipid panel -Continue with lipitor 40 mg daily Delirium-improving -At times, was AAOx3 today. -Continue with geodon [facility], ativan PRN. Xanax stopped. -Dr. Galarza, Psychiatry, was consulted for recommendations. Follow recommendations Diabetes Mellitus Type II -Random glucose: 265 -Medium SSI -Accuchecks ACHS Tobacco Abuse -Nicotine patch daily Insomnia -Continue with ambien New hallucinations and delusions: -Will follow up with Psychiatry regarding recommendations for new hallucinations. Patient currently on scheduled geodon, antipsychotic. While patient is hallucinating, not currently causing disturbances. GI prophylaxis: pepcid 20 mg Q12 DVT prophylaxis: SCD Disposition: PT recommended [facility] however due to patient's insurance, there is difficulty with placement at this time regarding antibiotic, daptomycin availability at facility. Continue to follow up with Social work regarding placement at [facility]. Patient has been accepted at [facility] but they cannot accomodate due to contact isolation. They will follow up when isolation bed is available. Patient plan discussed with attending. <Navi Conway - Last Filed: 11/22/18 15:20> Objective - Vital Signs/Intake and Output Vital Signs (last 24 hours): Temp Pulse Resp BP Pulse Ox 97.6 F 92 H 20 158/98 H 100 11/22/18 08:21 11/22/18 08:21 11/22/18 08:21 11/22/18 08:21 11/22/18 08:21 - Medications Medications: Current Medications Acetaminophen (Tylenol 325mg Tab) 650 mg PO Q6H PRN PRN Reason: Pain, moderate (4-7) Last Admin: 11/22/18 15:10 Dose: 650 mg Acetaminophen (Tylenol 325 Mg Supp) 325 mg RC Q6H PRN PRN Reason: Fever >100.4 F Aspirin (Aspirin Chewable) 81 mg PO DAILY [facility] Last Admin: 11/22/18 11:28 Dose: 81 mg Atorvastatin Calcium (Lipitor) 40 mg PO DIN [facility] Last Admin: 11/21/18 17:12 Dose: 40 mg Clopidogrel Bisulfate (Plavix) 75 mg PO DAILY [facility] Last Admin: 11/22/18 11:30 Dose: 75 mg Dextrose (Dextrose 50% Inj) 0 ml IV STAT PRN; Protocol PRN Reason: Hypoglycemia Protocol Famotidine (Pepcid) 20 mg PO Q12 [facility] Last Admin: 11/22/18 11:30 Dose: 20 mg Dextrose (Dextrose 5% In Water 1000 Ml) 1,000 mls @ 0 mls/hr IV .Q0M PRN; Protocol PRN Reason: Hypoglycemia Protocol Daptomycin 440 mg/ Sodium (Chloride) 100 mls @ 200 mls/hr IV Q24H [facility] Stop: 12/12/18 10:01 Last Admin: 11/22/18 11:29 Dose: 200 mls/hr Insulin Human Lispro (Humalog Med) 0 units SC ACHS [facility]; Protocol Last Admin: 11/22/18 12:24 Dose: 5 units Lorazepam (Ativan) 2 mg IVP Q6H PRN; Protocol PRN Reason: Agitation Last Admin: 11/20/18 19:41 Dose: 2 mg Metoprolol Tartrate (Lopressor) 25 mg PO BRKDIN [facility] Last Admin: 11/22/18 08:14 Dose: 25 mg Mupirocin (Bactroban Ointment) 0 gm NS BID [facility] Stop: 11/27/18 18:01 Nicotine (Nicoderm Cq) 1 patch TD DAILY [facility] Last Admin: 11/22/18 11:29 Dose: 1 patch Vitamin A (Vitamin A & D Oint Ud Foilpak) 1 ea TOP BID [facility] Last Admin: 11/22/18 11:31 Dose: Not Given Ziprasidone (Geodon Cap) 20 mg PO HS [facility]; Protocol Last Admin: 11/20/18 21:24 Dose: 20 mg Ziprasidone (Geodon Cap) 20 mg PO DAILY [facility]; Protocol Last Admin: 11/22/18 11:29 Dose: 20 mg Zolpidem Tartrate (Ambien) 10 mg PO HS [facility]; Protocol Last Admin: 11/21/18 22:35 Dose: 10 mg - Labs Labs: 11/22/18 06:15 11/22/18 06:15 PT 12.7 SECONDS (9.4-12.5) H 11/02/18 13:38 INR 1.12 11/02/18 13:38 APTT 39.3 Seconds (26.9-38.3) H 11/02/18 13:38 Attending/Attestation - Attestation I have personally seen and examined this patient.: Yes I have fully participated in the care of the patient.: Yes I have reviewed all pertinent clinical information, including history, physical exam and plan: Yes Notes (Text): 11/22/18 15:18 53 year old male with past medical history of hypertension, diabetes, and CVA (07/2018) who was initially admitted under psychiatric unit for depression. He was transferred to medical floor for +MRI findings showing subacute to chronic ischemic infarction involving the right frontal, temporal and parietal lobes with accompanying hemorrhagic component. CTA head/neck showed critical stenosis of right ICA, >75% stenosis of left ICA and moderate to severe multifocal stenosis of the cavernous and supraclinoid segments of right ICA. Neurology has been following. Serial CT heads have been stable. Patient is on aspirin, plavix and statin. Neurosurgery and vascular evaluations were also appreciated; no acute intervention planned. Recommended outpatient follow up. Patient continues to have periods of confusion and hallucination. He is on ativan prn and geodon. Psychiatry is following. Continue with iv antibiotics for MRSA bacteremia. CARLY was negative for vegetations. Patient will need one more week of antibiotics per ID. PT is following; recommended rehab. Will follow up with CMx/Sw. Navi Conway MD Hospitalist.
--- NOTE | 2018-11-22 15:30 | CP.PCM.PN ---
Subjective - Date & Time of Evaluation Date of Evaluation: 11/22/18 Time of Evaluation: 11:35 - Subjective Subjective: No fevers, no headache, not in distress. Objective - Vital Signs/Intake and Output Vital Signs (last 24 hours): Temp Pulse Resp BP Pulse Ox 97.6 F 78 18 156/96 H 97 11/20/18 06:00 11/21/18 08:11 11/20/18 06:00 11/21/18 08:11 11/20/18 06:00 - Medications Medications: Current Medications Acetaminophen (Tylenol 325mg Tab) 650 mg PO Q6H PRN PRN Reason: Pain, moderate (4-7) Last Admin: 11/20/18 19:41 Dose: 650 mg Acetaminophen (Tylenol 325 Mg Supp) 325 mg RC Q6H PRN PRN Reason: Fever >100.4 F Aspirin (Aspirin Chewable) 81 mg PO DAILY [facility] Last Admin: 11/20/18 11:00 Dose: 81 mg Atorvastatin Calcium (Lipitor) 40 mg PO DIN [facility] Last Admin: 11/20/18 18:19 Dose: 40 mg Clopidogrel Bisulfate (Plavix) 75 mg PO DAILY [facility] Last Admin: 11/20/18 11:02 Dose: 75 mg Dextrose (Dextrose 50% Inj) 0 ml IV STAT PRN; Protocol PRN Reason: Hypoglycemia Protocol Famotidine (Pepcid) 20 mg PO Q12 [facility] Last Admin: 11/20/18 21:25 Dose: 20 mg Dextrose (Dextrose 5% In Water 1000 Ml) 1,000 mls @ 0 mls/hr IV .Q0M PRN; Protocol PRN Reason: Hypoglycemia Protocol Daptomycin 440 mg/ Sodium (Chloride) 100 mls @ 200 mls/hr IV Q24H [facility] Stop: 12/12/18 10:01 Last Admin: 11/20/18 11:01 Dose: 200 mls/hr Insulin Human Lispro (Humalog Med) 0 units SC ACHS [facility]; Protocol Last Admin: 11/21/18 08:14 Dose: 1 units Lorazepam (Ativan) 2 mg IVP Q6H PRN; Protocol PRN Reason: Agitation Last Admin: 11/20/18 19:41 Dose: 2 mg Metoprolol Tartrate (Lopressor) 25 mg PO BRKDIN [facility] Last Admin: 11/21/18 08:11 Dose: 25 mg Nicotine (Nicoderm Cq) 1 patch TD DAILY [facility] Last Admin: 11/20/18 11:03 Dose: 1 patch Vitamin A (Vitamin A & D Oint Ud Foilpak) 1 ea TOP BID [facility] Last Admin: 11/20/18 18:20 Dose: Not Given Ziprasidone (Geodon Cap) 20 mg PO HS [facility]; Protocol Last Admin: 11/20/18 21:24 Dose: 20 mg Ziprasidone (Geodon Cap) 20 mg PO DAILY [facility]; Protocol Last Admin: 11/20/18 11:01 Dose: 20 mg Zolpidem Tartrate (Ambien) 10 mg PO HS [facility]; Protocol - Labs Labs: 11/21/18 06:00 11/21/18 06:00 PT 12.7 SECONDS (9.4-12.5) H 11/02/18 13:38 INR 1.12 11/02/18 13:38 APTT 39.3 Seconds (26.9-38.3) H 11/02/18 13:38 - Constitutional Appears: Chronically Ill - Head Exam Head Exam: NORMAL INSPECTION - Respiratory Exam Respiratory Exam: Decreased Breath Sounds - Cardiovascular Exam Cardiovascular Exam: +S1, +S2 - GI/Abdominal Exam GI & Abdominal Exam: Soft. absent: Tenderness Assessment and Plan - Assessment and Plan (Free Text) Plan: Assessment sepsis due to Methicillin-resistant Staph aureus bacteremia in this patient with right parietal and temporal lobe infarct with hemorrhagic conversion; no evidence of endocarditis on CARLY done today in this patient with right upper arm cellulitis CVA DM HTN dyslipidemia depression significant smoking Plan continue Daptomycin - day 9 from first negative blood cx; repeat blood cx are negative; reviewed CARLY results done by Dr. Godinez will need at least 2 weeks of antibiotics from the first negative blood cx will continue to monitor clinically discussed with Dr. Conway will check CPK level tomorrow
[2018-11-22] MEDS: Mupirocin 2% Ointment 15 GM TUBE NS SCH (17:08)
[2018-11-23 06:52] LABS: BASO # 0.07 K/mm3 (0.0-2.0); BASO % 1.1 % (0.0-3.0); EOS # 0.3 (0.0-0.7); EOS % 5.1 % (1.5-5.0); HEMOGLOBIN 12.7 g/dL (14.0-18.0); LYMPH # 2.9 (1.2-3.4); LYMPH % 43.6 % (22.0-35.0); MEAN CELL VOLUME 85.1 fl (80.0-105.0); MEAN CORPUSCULAR HGB CONC 31.7 g/dl (31.0-37.0); MEAN PLATELET VOLUME 9.7 fl (7.0-11.0); MONO # 0.5 (0.1-0.6); MONO % 7.8 % (1.0-6.0); RBC 4.71 10^6/uL (3.5-6.1); RED CELL DISTRIBUTION WIDTH 14.8 % (11.5-14.5); WHITE BLOOD COUNT 6.6 10^3/uL (4.5-11.0)
[2018-11-23 07:06] LABS: ALB/GLOB RATIO 1.3 (1.1-1.8); ALBUMIN 4.1 g/dL (3.0-4.8); ALT/SGPT 41 U/L (7-56); AST/SGOT 38 U/L (17-59); BLOOD UREA NITROGEN 20 mg/dL (7-21); CALCIUM 9.9 mg/dL (8.4-10.5); GFR NON-AFRICAN AMERICAN > 60
[2018-11-23] MEDS: Insulin Lispro (humaLOG) MEDIUM Coverage SC SCH (08:20)
--- NOTE | 2018-11-23 11:08 | CP.PCM.PN ---
<Uziel Quiroga - Last Filed: 11/23/18 15:33> Subjective - Date & Time of Evaluation Date of Evaluation: 11/23/18 Time of Evaluation: 11:08 - Subjective Subjective: Patient was seen and evaluated at bedside. Patient complained of left lower extremity pain overnight, per Nurse. No hallucinations overnight, per Nurse. Patient is sleeping currently. Per Psych evaluation, 1:1 sitter can be discontinued. Patient complains of left sided weakness which has continued from post stroke. Patient otherwise denies headache, fever, chest pain, shortness of breath, increase in weakness, nausea, vomiting, constipation, diarrhea, dysuria, hematuria. Objective - Vital Signs/Intake and Output Vital Signs (last 24 hours): Temp Pulse Resp BP Pulse Ox 97.6 F 111 H 20 123/89 98 11/22/18 20:19 11/23/18 08:20 11/22/18 20:19 11/23/18 08:20 11/22/18 20:19 Intake and Output: 11/23/18 11/23/18 06:59 18:59 Intake Total 100 Balance 100 - Medications Medications: Current Medications Acetaminophen (Tylenol 325mg Tab) 650 mg PO Q6H PRN PRN Reason: Pain, moderate (4-7) Last Admin: 11/23/18 08:21 Dose: 650 mg Acetaminophen (Tylenol 325 Mg Supp) 325 mg RC Q6H PRN PRN Reason: Fever >100.4 F Aspirin (Aspirin Chewable) 81 mg PO DAILY [facility] Last Admin: 11/22/18 11:28 Dose: 81 mg Atorvastatin Calcium (Lipitor) 40 mg PO DIN [facility] Last Admin: 11/22/18 17:10 Dose: 40 mg Clopidogrel Bisulfate (Plavix) 75 mg PO DAILY [facility] Last Admin: 11/22/18 11:30 Dose: 75 mg Dextrose (Dextrose 50% Inj) 0 ml IV STAT PRN; Protocol PRN Reason: Hypoglycemia Protocol Famotidine (Pepcid) 20 mg PO Q12 [facility] Last Admin: 11/22/18 22:00 Dose: 20 mg Dextrose (Dextrose 5% In Water 1000 Ml) 1,000 mls @ 0 mls/hr IV .Q0M PRN; Protocol PRN Reason: Hypoglycemia Protocol Daptomycin 440 mg/ Sodium (Chloride) 100 mls @ 200 mls/hr IV Q24H [facility] Stop: 12/12/18 10:01 Last Admin: 11/22/18 11:29 Dose: 200 mls/hr Insulin Human Regular (Humulin R High) 0 units SC ACHS [facility]; Protocol Lorazepam (Ativan) 2 mg IVP Q6H PRN; Protocol PRN Reason: Agitation Last Admin: 11/23/18 08:19 Dose: 2 mg Metoprolol Tartrate (Lopressor) 25 mg PO BRKDIN [facility] Last Admin: 11/23/18 08:20 Dose: 25 mg Mupirocin (Bactroban Ointment) 0 gm NS BID [facility] Stop: 11/27/18 18:01 Last Admin: 11/22/18 17:08 Dose: 1 applic Nicotine (Nicoderm Cq) 1 patch TD DAILY [facility] Last Admin: 11/22/18 11:29 Dose: 1 patch Vitamin A (Vitamin A & D Oint Ud Foilpak) 1 ea TOP BID [facility] Last Admin: 11/22/18 17:12 Dose: Not Given Ziprasidone (Geodon Cap) 20 mg PO HS [facility]; Protocol Last Admin: 11/22/18 21:31 Dose: 20 mg Ziprasidone (Geodon Cap) 20 mg PO DAILY [facility]; Protocol Last Admin: 11/22/18 11:29 Dose: 20 mg Zolpidem Tartrate (Ambien) 10 mg PO HS [facility]; Protocol Last Admin: 11/22/18 21:33 Dose: 10 mg - Labs Labs: 11/23/18 06:20 11/23/18 06:20 PT 12.7 SECONDS (9.4-12.5) H 11/02/18 13:38 INR 1.12 11/02/18 13:38 APTT 39.3 Seconds (26.9-38.3) H 11/02/18 13:38 - Additional Findings Additional findings: - Constitutional Appears: Non-toxic, No Acute Distress, Unkempt - Head Exam Head Exam: NORMOCEPHALIC - Eye Exam Eye Exam: EOMI, PERRL - ENT Exam ENT Exam: Mucous Membranes Moist - Respiratory Exam Respiratory Exam: Clear to Ausculation Bilateral, NORMAL BREATHING PATTERN - Cardiovascular Exam Cardiovascular Exam: REGULAR RHYTHM, RRR - GI/Abdominal Exam GI & Abdominal Exam: Soft, Normal Bowel Sounds. absent: Tenderness - Extremities Exam Extremities Exam: positive weakness - Neurological Exam Neurological Exam: Alert, Awake, CN II-XII Intact (grossly). AAOx3 but at times is also AAOx1 - Psychiatric Exam Psychiatric exam: Agitated, Improved Additional comments: patient has had multiple hallucinations and delusions; improved today - Skin Skin Exam: Dry, Intact Assessment and Plan - Assessment and Plan (Free Text) Assessment: 53 year old male with past medical history of hypertension, diabetes mellitus type II, ischemic stroke (left sided paralysis), hyperlipidemia, and metal strapnal in left eye that was removed presents with right temporal and frontal pareital ischemic infarct with hemorrhagic component confirmed by MRI. Patient was treated in ICU with residual left sided weakness. Patient had Staph Aureus in both blood cultures. No evidence of endocarditis on CARLY with right upper arm cellulitis. Repeat blood culture has been negative. As per ID, continue with daptomycin day 10 for a total of 2 weeks of antibiotics. Midline in place. Please note: RN witnessed patient falling out of bed on his L side. Patient states he was attempting to get up to go to the bathroom. Patient is now resting comfortably in bed and has no complaints. Please see fall note for details. Patient is currently being monitored with [facility] Plan: Staph Aureus Bacteremia - Blood culture on 11/13: MRSA. Repeat blood culture from 11/14 shows no growth for 5 days. - MRSA of nares is positive. Started bactroban ointment today day 1 of 5 and will recheck nares for MRSA - Procal: 0.09 - HIV negative - CARLY: shows no evidence of valve vegetation - As per ID, continue with daptomycin day 10 out of 14 days. - Midline in place Hemorrhagic Stroke - Head MRI 11/01: right temporal and frontal parietal ischemic infarct with hemorrhagic component. - Head and neck CT on 11/02: Critical stenosis origin R ICA. Greater than 75% stenosis origin L ICA. Mod-severe multifocal stenosis R ICA cavernous. No sign of stenosis L cavernous and intracranial ICA. Slight increase in stenosis of R M1 MCA. - Head CT 11/03: No change in large MCA distribution infarct, No evidence of midline shift. - Head CT 11/05: No acute intracranial hemorrhage. Re-demonstration of large chronic R MCA territory infarct - APA workup negative - Lipid panel shows elevated triglycerides - Continue with aspirin, statin, and plavix. - Aspiration, fall, and seizure precautions - HOB at 30 degrees - Neuro checks Q4 - Dr. Agudelo and Dr. Martinez, Neurology and Neurosurgery, consulted for recommendations. Follow recommendations. Hypertension - BP: 158/98 - Continue Lopressor 25 mg daily Hyperlipidemia - Elevated triglycerides on lipid panel - Continue with lipitor 40 mg daily Delirium-improving - At times, was AAOx3 today. - Continue with geodon [facility], ativan PRN. Xanax stopped. - Dr. Galarza, Psychiatry, was consulted for recommendations. Follow recommendations Diabetes Mellitus Type II - Random glucose: 265 - Medium SSI - Accuchecks ACHS Tobacco Abuse - Nicotine patch daily Insomnia - Continue with ambien Hallucinations and delusions: - Will follow up with Psychiatry regarding recommendations for new hallucinations. - Patient currently on scheduled geodon, antipsychotic. - While patient is hallucinating, not currently causing disturbances. Ppx: GI prophylaxis: pepcid 20 mg Q12 DVT prophylaxis: SCD Disposition: PT recommended [facility] however due to patient's insurance, there is difficulty with placement at this time regarding antibiotic, daptomycin availability at facility. Continue to follow up with Social work regarding placement at [facility]. Patient has been accepted at [facility] but they cannot accomodate due to contact isolation. They will follow up when isolation bed is available. Patient seen and case discussed in detail with attending Uziel Quiroga PGY1 <Navi Conway - Last Filed: 11/23/18 17:30> Objective - Vital Signs/Intake and Output Vital Signs (last 24 hours): Temp Pulse Resp BP Pulse Ox 97.6 F 111 H 20 123/89 98 11/22/18 20:19 11/23/18 08:20 11/22/18 20:19 11/23/18 08:20 11/22/18 20:19 Intake and Output: 11/23/18 11/23/18 06:59 18:59 Intake Total 100 Balance 100 - Medications Medications: Current Medications Acetaminophen (Tylenol 325mg Tab) 650 mg PO Q6H PRN PRN Reason: Pain, moderate (4-7) Last Admin: 11/23/18 08:21 Dose: 650 mg Acetaminophen (Tylenol 325 Mg Supp) 325 mg RC Q6H PRN PRN Reason: Fever >100.4 F Aspirin (Aspirin Chewable) 81 mg PO DAILY [facility] Last Admin: 11/23/18 12:00 Dose: 81 mg Atorvastatin Calcium (Lipitor) 40 mg PO DIN [facility] Last Admin: 11/22/18 17:10 Dose: 40 mg Clopidogrel Bisulfate (Plavix) 75 mg PO DAILY [facility] Last Admin: 11/23/18 12:02 Dose: 75 mg Dextrose (Dextrose 50% Inj) 0 ml IV STAT PRN; Protocol PRN Reason: Hypoglycemia Protocol Famotidine (Pepcid) 20 mg PO Q12 [facility] Last Admin: 11/23/18 12:02 Dose: 20 mg Dextrose (Dextrose 5% In Water 1000 Ml) 1,000 mls @ 0 mls/hr IV .Q0M PRN; Protocol PRN Reason: Hypoglycemia Protocol Daptomycin 440 mg/ Sodium (Chloride) 100 mls @ 200 mls/hr IV Q24H [facility] Stop: 12/12/18 10:01 Last Admin: 11/23/18 12:00 Dose: 200 mls/hr Insulin Human Regular (Humulin R High) 0 units SC ACHS [facility]; Protocol Last Admin: 11/23/18 12:02 Dose: 2 units Lorazepam (Ativan) 2 mg IVP Q6H PRN; Protocol PRN Reason: Agitation Last Admin: 11/23/18 08:19 Dose: 2 mg Metoprolol Tartrate (Lopressor) 25 mg PO BRKDIN [facility] Last Admin: 11/23/18 08:20 Dose: 25 mg Mupirocin (Bactroban Ointment) 0 gm NS BID [facility] Stop: 11/27/18 18:01 Last Admin: 11/23/18 12:00 Dose: 1 applic Nicotine (Nicoderm Cq) 1 patch TD DAILY [facility] Last Admin: 11/23/18 12:02 Dose: 1 patch Vitamin A (Vitamin A & D Oint Ud Foilpak) 1 ea TOP BID [facility] Last Admin: 11/23/18 12:03 Dose: Not Given Ziprasidone (Geodon Cap) 20 mg PO HS [facility]; Protocol Last Admin: 11/22/18 21:31 Dose: 20 mg Ziprasidone (Geodon Cap) 20 mg PO DAILY [facility]; Protocol Last Admin: 11/23/18 12:01 Dose: 20 mg Zolpidem Tartrate (Ambien) 10 mg PO HS [facility]; Protocol Last Admin: 11/22/18 21:33 Dose: 10 mg - Labs Labs: 11/23/18 06:20 11/23/18 06:20 PT 12.7 SECONDS (9.4-12.5) H 11/02/18 13:38 INR 1.12 11/02/18 13:38 APTT 39.3 Seconds (26.9-38.3) H 11/02/18 13:38 Attending/Attestation - Attestation I have personally seen and examined this patient.: Yes I have fully participated in the care of the patient.: Yes I have reviewed all pertinent clinical information, including history, physical exam and plan: Yes Notes (Text): 11/23/18 17:27 53 year old male with past medical history of hypertension, diabetes, and CVA (07/2018) who was initially admitted under psychiatric unit for depression. He was transferred to medical floor for +MRI findings showing subacute to chronic ischemic infarction involving the right frontal, temporal and parietal lobes with accompanying hemorrhagic component. CTA head/neck showed critical stenosis of right ICA, >75% stenosis of left ICA and moderate to severe multifocal stenosis of the cavernous and supraclinoid segments of right ICA. Neurology has been following. Serial CT heads have been stable. Patient is on aspirin, plavix and statin. Neurosurgery and vascular evaluations were also appreciated; no acute intervention planned. Recommended outpatient follow up. Patient had periods of confusion and hallucination which has improved. Psychia try is following. He is on ativan prn and geodon. Continue with iv antibiotics for MRSA bacteremia. CARLY was negative for vegetations. ID is following. Patient has episode from fall from bed today while attempting to get up. Xrays were negative. Fall precautions. PT is following; recommended rehab. Will follow up with CMx/Sw. Navi Conway MD Hospitalist.
[2018-11-23] MEDS: Mupirocin 2% Ointment 15 GM TUBE NS SCH ×2 (12:00→19:16)
[2018-11-23] MEDS: Insulin Reg-HIGH-Coverage SC SCH ×3 (12:02→22:10)
[2018-11-23] MEDS: Vitamins A & D Oint UD Foilpak TOP SCH ×3 (12:03→19:13)
--- NOTE | 2018-11-23 13:54 | CP.PCM.PN ---
Subjective - Date & Time of Evaluation Date of Evaluation: 11/23/18 Time of Evaluation: 11:05 - Subjective Subjective: Not in distress, no fevers, no headache currently. Objective - Vital Signs/Intake and Output Vital Signs (last 24 hours): Temp Pulse Resp BP Pulse Ox 97.6 F 92 H 20 158/98 H 100 11/22/18 08:21 11/22/18 08:21 11/22/18 08:21 11/22/18 08:21 11/22/18 08:21 - Medications Medications: Current Medications Acetaminophen (Tylenol 325mg Tab) 650 mg PO Q6H PRN PRN Reason: Pain, moderate (4-7) Last Admin: 11/22/18 15:10 Dose: 650 mg Acetaminophen (Tylenol 325 Mg Supp) 325 mg RC Q6H PRN PRN Reason: Fever >100.4 F Aspirin (Aspirin Chewable) 81 mg PO DAILY [facility] Last Admin: 11/22/18 11:28 Dose: 81 mg Atorvastatin Calcium (Lipitor) 40 mg PO DIN [facility] Last Admin: 11/21/18 17:12 Dose: 40 mg Clopidogrel Bisulfate (Plavix) 75 mg PO DAILY [facility] Last Admin: 11/22/18 11:30 Dose: 75 mg Dextrose (Dextrose 50% Inj) 0 ml IV STAT PRN; Protocol PRN Reason: Hypoglycemia Protocol Famotidine (Pepcid) 20 mg PO Q12 [facility] Last Admin: 11/22/18 11:30 Dose: 20 mg Dextrose (Dextrose 5% In Water 1000 Ml) 1,000 mls @ 0 mls/hr IV .Q0M PRN; Protocol PRN Reason: Hypoglycemia Protocol Daptomycin 440 mg/ Sodium (Chloride) 100 mls @ 200 mls/hr IV Q24H [facility] Stop: 12/12/18 10:01 Last Admin: 11/22/18 11:29 Dose: 200 mls/hr Insulin Human Lispro (Humalog Med) 0 units SC ACHS [facility]; Protocol Last Admin: 11/22/18 12:24 Dose: 5 units Lorazepam (Ativan) 2 mg IVP Q6H PRN; Protocol PRN Reason: Agitation Last Admin: 11/20/18 19:41 Dose: 2 mg Metoprolol Tartrate (Lopressor) 25 mg PO BRKDIN [facility] Last Admin: 11/22/18 08:14 Dose: 25 mg Mupirocin (Bactroban Ointment) 0 gm NS BID [facility] Stop: 11/27/18 18:01 Nicotine (Nicoderm Cq) 1 patch TD DAILY [facility] Last Admin: 11/22/18 11:29 Dose: 1 patch Vitamin A (Vitamin A & D Oint Ud Foilpak) 1 ea TOP BID [facility] Last Admin: 11/22/18 11:31 Dose: Not Given Ziprasidone (Geodon Cap) 20 mg PO HS [facility]; Protocol Last Admin: 11/20/18 21:24 Dose: 20 mg Ziprasidone (Geodon Cap) 20 mg PO DAILY [facility]; Protocol Last Admin: 11/22/18 11:29 Dose: 20 mg Zolpidem Tartrate (Ambien) 10 mg PO HS [facility]; Protocol Last Admin: 11/21/18 22:35 Dose: 10 mg - Labs Labs: 11/22/18 06:15 11/22/18 06:15 PT 12.7 SECONDS (9.4-12.5) H 11/02/18 13:38 INR 1.12 11/02/18 13:38 APTT 39.3 Seconds (26.9-38.3) H 11/02/18 13:38 - Constitutional Appears: Chronically Ill - Head Exam Head Exam: NORMAL INSPECTION - Respiratory Exam Respiratory Exam: Decreased Breath Sounds - Cardiovascular Exam Cardiovascular Exam: +S1, +S2 - GI/Abdominal Exam GI & Abdominal Exam: Soft. absent: Tenderness Assessment and Plan - Assessment and Plan (Free Text) Plan: Assessment sepsis due to Methicillin-resistant Staph aureus bacteremia in this patient with right parietal and temporal lobe infarct with hemorrhagic conversion; no evidence of endocarditis on CARLY done today in this patient with right upper arm cellulitis CVA DM HTN dyslipidemia depression significant smoking Plan continue Daptomycin - day 10 from first negative blood cx; repeat blood cx are negative; reviewed CARLY results done by Dr. Godinez will need at least 2 weeks of antibiotics from the first negative blood cx will continue to monitor clinically discussed with Dr. Conway will check CPK level
--- NOTE | 2018-11-23 14:33 | PCM.FALL ---
Post Fall Progress Note - Post Fall Fall Date: 11/23/18 Fall Time: 14:20 Description of Fall: RN witnessed patient falling out of bed on his L side. Patient states he was attempting to get up to go to the bathroom. Patient is now resting comfortably in bed and has no complaints. - Post Fall Exam Vital Sign: Temp Pulse Resp BP Pulse Ox 97.6 F 111 H 20 123/89 98 11/22/18 20:19 11/23/18 08:20 11/22/18 20:19 11/23/18 08:20 11/22/18 20:19 Skull Exam: Negative for: Scalp wound, Scalp hematoma, Scalp depression Eye Exam: Positive for: Pupils equal, Pupils reactive Ear Exam: Negative for: Bleeding Nose Exam: Negative for: Bleeding Mouth Exam: Negative for: Tongue bitten Neck Exam: Negative for: Tenderness, Weakness Spinal Exam: Negative for: Tenderness, Weakness Chest Exam: Negative for: Difficulty breathing, Tenderness in collar bones, Tenderness in ribs Abdomen Exam: Negative for: Tenderness Pelvic Exam: Negative for: Tenderness Arm Exam: Negative for: Deformity, Alteration in range of movement Leg Exam: Negative for: Deformity, Alteration in range of movement Impression/Plan: Will get hip L hip and lumbar spine xrays to r/o acute fx. Low suspicion for acute fx as patient is without symptoms and is moving all extremities spontaneously. Per patient and staff weapons officer, patient did not have any head trauma. No need for head CT at this time. Primary hospitalist team notified of fall.
--- NOTE | 2018-11-23 16:18 | RAD ---
PROCEDURE: Left Hip and pelvis x-ray Radiographs. HISTORY: fall COMPARISON: None. FINDINGS: BONES: Normal. No fracture. JOINTS: Normal. SOFT TISSUES: Normal. OTHER FINDINGS: None. IMPRESSION: Normal left hip radiographs.
--- NOTE | 2018-11-23 16:20 | RAD ---
Date of service: 11/23/2018 PROCEDURE: Radiographs of the Lumbar Spine. HISTORY: Fall COMPARISON: No prior. FINDINGS: BONES: Normal alignment. No listhesis. No fracture. DISC SPACES: Unremarkable. OTHER FINDINGS: A lateral film was not obtained. The patient could not lie in the lateral position IMPRESSION: Unremarkable radiographs of the lumbar spine.
--- NOTE | 2018-11-23 18:33 | PN ---
DATE: 11/23/2018 SUBJECTIVE: The patient is 53-year-old male who has multiple medical issues including stroke as well as new diagnosis of MRSA sepsis. The patient stayed in the hospital for the past month. The patient is be seen by this journalists and other writers because the patient has episodes of depression, also verbalizing thoughts of harming himself. The patient was seen today as per report from the nursing staff. Yesterday, the patient was making statement that he wants to . He wants to kill himself, but at the same time, the patient was not acting in a way that he wants to harm himself, but the patient was started on one-to-one observation. During this journalists and other writers evaluation at the morning time, the patient appears to be sleepy, easily arousable. As per nursing report, the patient was restless and got Ativan IV push. The patient presented to be depressed, which is understandable. The patient has episodes of feeling hopeless. The patient also has episodes of confusion and cursing at people as well as screaming and yelling, but so far from the psychiatric standpoint, the patient appears to be stable. This journalists and other writers reviewed vital signs which seems to be stable. Medications reviewed. The patient is on Ativan 2 mg IV push every 6 hours . as needed. The patient for the past 2 days on 11/22/2018 and 11/23/2018, the patient had 1 dose of 2 mg of Ativan. Before that, the patient did not require any Ativan for 2 days. The patient also is on Geodon 20 mg at the nighttime scheduled and 20 mg daily. The patient is on Ambien 10 mg daily. Labs reviewed. Most recent was from today. Immunology reviewed. Serology reviewed. MENTAL STATUS EXAM: The patient appears to be sleepy, easily arousable and episodes of confusion. Mood described as depressed. Affect was flat. Thought process at times disorganized. Thought content, the patient has episodes of making hopeless statement and suicidal statements, but all the statements are related to the medical issues what the patient has. Insight and judgment seems to be limited. Impulses are still unpredictable. IMPRESSION: Most likely, the patient is in delirium stage. Also, the patient has mood disorder due to general medical condition. The patient has sepsis, recent stroke with residual weakness on the left side. PLAN: We will continue current management, current medications and we will follow up every other day. Should you have any questions, give me a call back. This journalists and other writers discontinue one-to-one observation for this patient because the patient has no intent or mean to kill himself. Savanah Galarza MD MTDD
[2018-11-24] MEDS: Insulin Reg-HIGH-Coverage SC SCH ×4 (08:11→22:00)
[2018-11-24] MEDS ORDERED: Vancomycin 2 GM in Sodium Chloride 0.9% 500 ML IVPB ONE (08:57)
[2018-11-24] MEDS: Vitamins A & D Oint UD Foilpak TOP SCH ×2 (09:13→17:07)
[2018-11-24] MEDS: Mupirocin 2% Ointment 15 GM TUBE NS SCH ×2 (09:16→17:05)
--- NOTE | 2018-11-24 13:14 | CP.PCM.PN ---
<Uziel Quiroga - Last Filed: 11/24/18 16:56> Subjective - Date & Time of Evaluation Date of Evaluation: 11/24/18 Time of Evaluation: 13:14 - Subjective Subjective: PGY1 Medicine Progress Note for Dr. Conway Patient was seen and evaluated at bedside. Patient complained of left lower extremity pain overnight, per Nurse. No hallucinations overnight, per Nurse. Patient is sleeping currently. Patient is being monitored on [place]. Patient complains of left sided weakness which has continued from post stroke. Patient otherwise denies headache, fever, chest pain, shortness of breath, increase in weakness, nausea, vomiting, constipation, diarrhea, dysuria, hematuria. Objective - Vital Signs/Intake and Output Vital Signs (last 24 hours): Temp Pulse Resp BP Pulse Ox 97.3 F L 81 20 141/68 98 11/24/18 08:07 11/24/18 08:12 11/24/18 08:07 11/24/18 08:12 11/24/18 08:07 - Medications Medications: Current Medications Acetaminophen (Tylenol 325mg Tab) 650 mg PO Q6H PRN PRN Reason: Pain, moderate (4-7) Last Admin: 11/23/18 08:21 Dose: 650 mg Acetaminophen (Tylenol 325 Mg Supp) 325 mg RC Q6H PRN PRN Reason: Fever >100.4 F Aspirin (Aspirin Chewable) 81 mg PO DAILY [facility] Last Admin: 11/24/18 09:11 Dose: 81 mg Atorvastatin Calcium (Lipitor) 40 mg PO DIN [facility] Last Admin: 11/23/18 19:11 Dose: 40 mg Clopidogrel Bisulfate (Plavix) 75 mg PO DAILY [facility] Last Admin: 11/24/18 09:13 Dose: 75 mg Dextrose (Dextrose 50% Inj) 0 ml IV STAT PRN; Protocol PRN Reason: Hypoglycemia Protocol Famotidine (Pepcid) 20 mg PO Q12 [facility] Last Admin: 11/24/18 09:12 Dose: 20 mg Dextrose (Dextrose 5% In Water 1000 Ml) 1,000 mls @ 0 mls/hr IV .Q0M PRN; Protocol PRN Reason: Hypoglycemia Protocol Vancomycin HCl (Vancomycin 1gm) 1 gm in 250 mls @ 167 mls/hr IVPB Q12H [facility]; Protocol Insulin Human Regular (Humulin R High) 0 units SC ACHS [facility]; Protocol Last Admin: 11/24/18 11:25 Dose: 2 units Lorazepam (Ativan) 2 mg IVP Q6H PRN; Protocol PRN Reason: Agitation Last Admin: 11/24/18 04:50 Dose: 2 mg Metoprolol Tartrate (Lopressor) 25 mg PO BRKDIN [facility] Last Admin: 11/24/18 08:12 Dose: 25 mg Mupirocin (Bactroban Ointment) 0 gm NS BID [facility] Stop: 11/27/18 18:01 Last Admin: 11/24/18 09:16 Dose: 1 applic Nicotine (Nicoderm Cq) 1 patch TD DAILY [facility] Last Admin: 11/24/18 09:12 Dose: 1 patch Vitamin A (Vitamin A & D Oint Ud Foilpak) 1 ea TOP BID [facility] Last Admin: 11/24/18 09:13 Dose: 1 ea Ziprasidone (Geodon Cap) 20 mg PO HS [facility]; Protocol Last Admin: 11/23/18 22:30 Dose: 20 mg Ziprasidone (Geodon Cap) 20 mg PO DAILY [facility]; Protocol Last Admin: 11/24/18 09:11 Dose: 20 mg Zolpidem Tartrate (Ambien) 10 mg PO HS [facility]; Protocol Last Admin: 11/23/18 22:16 Dose: 10 mg - Labs Labs: 11/23/18 06:20 11/23/18 06:20 PT 12.7 SECONDS (9.4-12.5) H 11/02/18 13:38 INR 1.12 11/02/18 13:38 APTT 39.3 Seconds (26.9-38.3) H 11/02/18 13:38 - Additional Findings Additional findings: - Constitutional Appears: Non-toxic, No Acute Distress, Unkempt - Head Exam Head Exam: NORMOCEPHALIC - Eye Exam Eye Exam: EOMI, PERRL - ENT Exam ENT Exam: Mucous Membranes Moist - Respiratory Exam Respiratory Exam: Clear to Ausculation Bilateral, NORMAL BREATHING PATTERN - Cardiovascular Exam Cardiovascular Exam: REGULAR RHYTHM, RRR - GI/Abdominal Exam GI & Abdominal Exam: Soft, Normal Bowel Sounds. absent: Tenderness - Extremities Exam Extremities Exam: positive weakness - Neurological Exam Neurological Exam: Alert, Awake, CN II-XII Intact (grossly). AAOx3 but at times is also AAOx1 - Psychiatric Exam Psychiatric exam: Agitated, Improved Additional comments: patient has had multiple hallucinations and delusions; improved today - Skin Skin Exam: Dry, Intact Assessment and Plan - Assessment and Plan (Free Text) Assessment: Assessment: 53 year old male with past medical history of hypertension, diabetes mellitus type II, ischemic stroke (left sided paralysis), hyperlipidemia, and metal strapnal in left eye that was removed presents with right temporal and frontal pareital ischemic infarct with hemorrhagic component confirmed by MRI. Patient was treated in ICU with residual left sided weakness. Patient had Staph Aureus in both blood cultures. No evidence of endocarditis on CARLY with right upper arm cellulitis. Repeat blood culture has been negative. As per ID, continue with daptomycin day 10 for a total of 2 weeks of antibiotics. Midline in place. Please note: RN witnessed patient falling out of bed on his L side. Patient states he was attempting to get up to go to the bathroom. Patient is now resting comfortably in bed and has no complaints. Please see fall note for details. Patient is currently being monitored with [facility]. MRSA of nares sent again. Plan: Staph Aureus Bacteremia - Blood culture on 11/13: MRSA. Repeat blood culture from 11/14 shows no growth for 5 days. - MRSA of nares is positive. Started bactroban ointment today day 1 of 5 and will recheck nares for MRSA - Procal: 0.09 - HIV negative - CARLY: shows no evidence of valve vegetation - As per ID, continue with daptomycin day 10 out of 14 days. - Midline in place Hemorrhagic Stroke - Head MRI 11/01: right temporal and frontal parietal ischemic infarct with hemorrhagic component. - Head and neck CT on 11/02: Critical stenosis origin R ICA. Greater than 75% stenosis origin L ICA. Mod-severe multifocal stenosis R ICA cavernous. No sign of stenosis L cavernous and intracranial ICA. Slight increase in stenosis of R M1 MCA. - Head CT 11/03: No change in large MCA distribution infarct, No evidence of midline shift. - Head CT 11/05: No acute intracranial hemorrhage. Re-demonstration of large chronic R MCA territory infarct - APA workup negative - Lipid panel shows elevated triglycerides - Continue with aspirin, statin, and plavix. - Aspiration, fall, and seizure precautions - HOB at 30 degrees - Neuro checks Q4 - Dr. Agudelo and Dr. Martinez, Neurology and Neurosurgery, consulted for recommendations. Follow recommendations. Hypertension - BP: 158/98 - Continue Lopressor 25 mg daily Hyperlipidemia - Elevated triglycerides on lipid panel - Continue with lipitor 40 mg daily Delirium-improving - At times, was AAOx3 today. - Continue with geodon [facility], ativan PRN. Xanax stopped. - Dr. Galarza, Psychiatry, was consulted for recommendations. Follow r ecommendations Diabetes Mellitus Type II - Random glucose: 265 - Medium SSI - Accuchecks ACHS Tobacco Abuse - Nicotine patch daily Insomnia - Continue with ambien Hallucinations and delusions: - Will follow up with Psychiatry regarding recommendations for new hallucinations. - Patient currently on scheduled geodon, antipsychotic. - While patient is hallucinating, not currently causing disturbances. Ppx: - GI prophylaxis: pepcid 20 mg Q12 - DVT prophylaxis: SCD Disposition: PT recommended [facility] however due to patient's insurance, there is difficulty with placement at this time regarding antibiotic, daptomycin availability at facility. Continue to follow up with Social work regarding placement at [facility]. Patient has been accepted at [facility] but they cannot accomodate due to contact isolation. They will follow up when isolation bed is available. Patient seen and case discussed in detail with Dr. Zoraida Quiroga PGY1 <Navi Conway - Last Filed: 11/24/18 18:49> Objective - Vital Signs/Intake and Output Vital Signs (last 24 hours): Temp Pulse Resp BP Pulse Ox 97.7 F 79 20 121/76 99 11/24/18 17:17 11/24/18 17:17 11/24/18 17:17 11/24/18 17:17 11/24/18 17:17 - Medications Medications: Current Medications Acetaminophen (Tylenol 325mg Tab) 650 mg PO Q6H PRN PRN Reason: Pain, moderate (4-7) Last Admin: 11/23/18 08:21 Dose: 650 mg Acetaminophen (Tylenol 325 Mg Supp) 325 mg RC Q6H PRN PRN Reason: Fever >100.4 F Aspirin (Aspirin Chewable) 81 mg PO DAILY [facility] Last Admin: 11/24/18 09:11 Dose: 81 mg Atorvastatin Calcium (Lipitor) 40 mg PO DIN [facility] Last Admin: 11/24/18 17:06 Dose: 40 mg Clopidogrel Bisulfate (Plavix) 75 mg PO DAILY [facility] Last Admin: 11/24/18 09:13 Dose: 75 mg Dextrose (Dextrose 50% Inj) 0 ml IV STAT PRN; Protocol PRN Reason: Hypoglycemia Protocol Famotidine (Pepcid) 20 mg PO Q12 [facility] Last Admin: 11/24/18 09:12 Dose: 20 mg Dextrose (Dextrose 5% In Water 1000 Ml) 1,000 mls @ 0 mls/hr IV .Q0M PRN; Protocol PRN Reason: Hypoglycemia Protocol Vancomycin HCl (Vancomycin 1gm) 1 gm in 250 mls @ 167 mls/hr IVPB Q12H [facility]; Protocol Insulin Human Regular (Humulin R High) 0 units SC ACHS [facility]; Protocol Last Admin: 11/24/18 16:01 Dose: Not Given Lorazepam (Ativan) 2 mg IVP Q6H PRN; Protocol PRN Reason: Agitation Last Admin: 11/24/18 04:50 Dose: 2 mg Metoprolol Tartrate (Lopressor) 25 mg PO BRKDIN [facility] Last Admin: 11/24/18 17:07 Dose: 25 mg Mupirocin (Bactroban Ointment) 0 gm NS BID [facility] Stop: 11/27/18 18:01 Last Admin: 11/24/18 17:05 Dose: 1 applic Nicotine (Nicoderm Cq) 1 patch TD DAILY [facility] Last Admin: 11/24/18 09:12 Dose: 1 patch Vitamin A (Vitamin A & D Oint Ud Foilpak) 1 ea TOP BID [facility] Last Admin: 11/24/18 17:07 Dose: 1 ea Ziprasidone (Geodon Cap) 20 mg PO HS [facility]; Protocol Last Admin: 11/23/18 22:30 Dose: 20 mg Ziprasidone (Geodon Cap) 20 mg PO DAILY [facility]; Protocol Last Admin: 11/24/18 09:11 Dose: 20 mg Zolpidem Tartrate (Ambien) 10 mg PO HS [facility]; Protocol Last Admin: 11/23/18 22:16 Dose: 10 mg - Labs Labs: 11/23/18 06:20 11/23/18 06:20 PT 12.7 SECONDS (9.4-12.5) H 11/02/18 13:38 INR 1.12 11/02/18 13:38 APTT 39.3 Seconds (26.9-38.3) H 11/02/18 13:38 Attending/Attestation - Attestation I have personally seen and examined this patient.: Yes I have fully participated in the care of the patient.: Yes I have reviewed all pertinent clinical information, including history, physical exam and plan: Yes Notes (Text): 11/24/18 18:47 53 year old male with past medical history of hypertension, diabetes, and CVA (07/2018) who was initially admitted under psychiatric unit for depression. He was transferred to medical floor for +MRI findings showing subacute to chronic ischemic infarction involving the right frontal, temporal and parietal lobes with accompanying hemorrhagic component. CTA head/neck showed critical stenosis of right ICA, >75% stenosis of left ICA and moderate to severe multifocal stenosis of the cavernous and supraclinoid segments of right ICA. Neurology has been following. Serial CT heads have been stable. Patient is on aspirin, plavix and statin. Neurosurgery and vascular evaluations were also appreciated; no acute intervention planned. Recommended outpatient follow up. Patient had periods of confusion and hallucination which has improved. Psychiatry is following. He is on ativan prn and geodon. Continue with iv antibiotics for MRSA bacteremia. CARLY was negative for vegetations. ID is following. He will complete antibiotics by this weekend. Continue with fall precaution. PT is following; d/c planning to rehab once accepted. Navi Conway MD Hospitalist.
--- NOTE | 2018-11-24 17:30 | CP.PCM.PN ---
Subjective - Date & Time of Evaluation Date of Evaluation: 11/24/18 Time of Evaluation: 10:40 - Subjective Subjective: Resting comfortably in bed, no fevers, not in distress. Objective - Vital Signs/Intake and Output Vital Signs (last 24 hours): Temp Pulse Resp BP Pulse Ox 97.6 F 111 H 20 123/89 98 11/22/18 20:19 11/23/18 08:20 11/22/18 20:19 11/23/18 08:20 11/22/18 20:19 Intake and Output: 11/23/18 11/23/18 06:59 18:59 Intake Total 100 Balance 100 - Medications Medications: Current Medications Acetaminophen (Tylenol 325mg Tab) 650 mg PO Q6H PRN PRN Reason: Pain, moderate (4-7) Last Admin: 11/23/18 08:21 Dose: 650 mg Acetaminophen (Tylenol 325 Mg Supp) 325 mg RC Q6H PRN PRN Reason: Fever >100.4 F Aspirin (Aspirin Chewable) 81 mg PO DAILY [facility] Last Admin: 11/23/18 12:00 Dose: 81 mg Atorvastatin Calcium (Lipitor) 40 mg PO DIN [facility] Last Admin: 11/22/18 17:10 Dose: 40 mg Clopidogrel Bisulfate (Plavix) 75 mg PO DAILY [facility] Last Admin: 11/23/18 12:02 Dose: 75 mg Dextrose (Dextrose 50% Inj) 0 ml IV STAT PRN; Protocol PRN Reason: Hypoglycemia Protocol Famotidine (Pepcid) 20 mg PO Q12 [facility] Last Admin: 11/23/18 12:02 Dose: 20 mg Dextrose (Dextrose 5% In Water 1000 Ml) 1,000 mls @ 0 mls/hr IV .Q0M PRN; Protocol PRN Reason: Hypoglycemia Protocol Daptomycin 440 mg/ Sodium (Chloride) 100 mls @ 200 mls/hr IV Q24H [facility] Stop: 12/12/18 10:01 Last Admin: 11/23/18 12:00 Dose: 200 mls/hr Insulin Human Regular (Humulin R High) 0 units SC ACHS [facility]; Protocol Last Admin: 11/23/18 12:02 Dose: 2 units Lorazepam (Ativan) 2 mg IVP Q6H PRN; Protocol PRN Reason: Agitation Last Admin: 11/23/18 08:19 Dose: 2 mg Metoprolol Tartrate (Lopressor) 25 mg PO BRKDIN [facility] Last Admin: 11/23/18 08:20 Dose: 25 mg Mupirocin (Bactroban Ointment) 0 gm NS BID [facility] Stop: 11/27/18 18:01 Last Admin: 11/23/18 12:00 Dose: 1 applic Nicotine (Nicoderm Cq) 1 patch TD DAILY [facility] Last Admin: 11/23/18 12:02 Dose: 1 patch Vitamin A (Vitamin A & D Oint Ud Foilpak) 1 ea TOP BID [facility] Last Admin: 11/23/18 12:03 Dose: Not Given Ziprasidone (Geodon Cap) 20 mg PO HS [facility]; Protocol Last Admin: 11/22/18 21:31 Dose: 20 mg Ziprasidone (Geodon Cap) 20 mg PO DAILY [facility]; Protocol Last Admin: 11/23/18 12:01 Dose: 20 mg Zolpidem Tartrate (Ambien) 10 mg PO HS [facility]; Protocol Last Admin: 11/22/18 21:33 Dose: 10 mg - Labs Labs: 11/23/18 06:20 11/23/18 06:20 PT 12.7 SECONDS (9.4-12.5) H 11/02/18 13:38 INR 1.12 11/02/18 13:38 APTT 39.3 Seconds (26.9-38.3) H 11/02/18 13:38 - Constitutional Appears: Chronically Ill - Head Exam Head Exam: NORMAL INSPECTION - Respiratory Exam Respiratory Exam: Decreased Breath Sounds - Cardiovascular Exam Cardiovascular Exam: +S1, +S2 - GI/Abdominal Exam GI & Abdominal Exam: Soft. absent: Tenderness Assessment and Plan - Assessment and Plan (Free Text) Plan: Assessment sepsis due to Methicillin-resistant Staph aureus bacteremia in this patient with right parietal and temporal lobe infarct with hemorrhagic conversion; no evidence of endocarditis on CARLY done today in this patient with right upper arm cellulitis CVA DM HTN dyslipidemia depression significant smoking Plan on Daptomycin and we have switched to IV Vancomycin to complete therapy - day 11 from first negative blood cx; repeat blood cx are negative; reviewed CARLY results done by Dr. Godinez will need at least 2 weeks of antibiotics from the first negative blood cx will continue to monitor clinically discussed with Dr. Conway previously
[2018-11-24] MEDS: Vancomycin 1gm in NS 250ml 1 GM/250 ML BAG IVPB SCH (21:58)
[2018-11-25] MEDS: Insulin Reg-HIGH-Coverage SC SCH ×4 (08:37→22:20)
[2018-11-25] MEDS: Vitamins A & D Oint UD Foilpak TOP SCH ×2 (09:10→18:09)
[2018-11-25] MEDS: Mupirocin 2% Ointment 15 GM TUBE NS SCH ×2 (09:18→18:00)
[2018-11-25] MEDS: Vancomycin 1gm in NS 250ml 1 GM/250 ML BAG IVPB SCH ×2 (10:00→21:47)
--- NOTE | 2018-11-25 12:49 | CP.PCM.PN ---
<Uziel Quiroga - Last Filed: 11/25/18 12:45> Subjective - Date & Time of Evaluation Date of Evaluation: 11/25/18 Time of Evaluation: 12:45 - Subjective Subjective: PGY1 Medicine Progress Note for Dr. Santana Patient was seen and evaluated at bedside. Per Nurse, Patient was hallucinating earlier this morning. Also per Nurse, Patient has been calling nurses names and behaving confused. Patient states that he thinks he is getting on a plane to fly to [place] today. Patient is oriented to self and age, but he says that Zack is the President. Patient placed 1:1. Patient complains of left sided weakness which has continued from post stroke. Patient otherwise denies headache, fever, chest pain, shortness of breath, increase in weakness, nausea, vomiting, constipation, diarrhea, dysuria, hematuria. Objective - Vital Signs/Intake and Output Vital Signs (last 24 hours): Temp Pulse Resp BP Pulse Ox 97.8 F 90 20 113/86 96 11/25/18 08:17 11/25/18 08:38 11/25/18 08:17 11/25/18 08:38 11/25/18 08:17 Intake and Output: 11/25/18 11/25/18 06:59 18:59 Intake Total 560 Balance 560 - Medications Medications: Current Medications Acetaminophen (Tylenol 325mg Tab) 650 mg PO Q6H PRN PRN Reason: Pain, moderate (4-7) Last Admin: 11/25/18 08:50 Dose: 650 mg Acetaminophen (Tylenol 325 Mg Supp) 325 mg RC Q6H PRN PRN Reason: Fever >100.4 F Aspirin (Aspirin Chewable) 81 mg PO DAILY [facility] Last Admin: 11/25/18 09:09 Dose: 81 mg Atorvastatin Calcium (Lipitor) 40 mg PO DIN [facility] Last Admin: 11/24/18 17:06 Dose: 40 mg Clopidogrel Bisulfate (Plavix) 75 mg PO DAILY [facility] Last Admin: 11/25/18 09:08 Dose: 75 mg Dextrose (Dextrose 50% Inj) 0 ml IV STAT PRN; Protocol PRN Reason: Hypoglycemia Protocol Famotidine (Pepcid) 20 mg PO Q12 [facility] Last Admin: 11/25/18 09:09 Dose: 20 mg Dextrose (Dextrose 5% In Water 1000 Ml) 1,000 mls @ 0 mls/hr IV .Q0M PRN; Pr otocol PRN Reason: Hypoglycemia Protocol Vancomycin HCl (Vancomycin 1gm) 1 gm in 250 mls @ 167 mls/hr IVPB Q12H [facility]; Protocol Last Admin: 11/24/18 21:58 Dose: 167 mls/hr Insulin Human Regular (Humulin R High) 0 units SC ACHS [facility]; Protocol Last Admin: 11/25/18 08:37 Dose: 4 units Lorazepam (Ativan) 2 mg IVP Q6H PRN; Protocol PRN Reason: Agitation Last Admin: 11/25/18 11:24 Dose: 2 mg Metoprolol Tartrate (Lopressor) 25 mg PO BRKDIN [facility] Last Admin: 11/25/18 08:38 Dose: 25 mg Mupirocin (Bactroban Ointment) 0 gm NS BID [facility] Stop: 11/27/18 18:01 Last Admin: 11/25/18 09:18 Dose: 1 applic Nicotine (Nicoderm Cq) 1 patch TD DAILY [facility] Last Admin: 11/25/18 09:10 Dose: 1 patch Vitamin A (Vitamin A & D Oint Ud Foilpak) 1 ea TOP BID [facility] Last Admin: 11/25/18 09:10 Dose: 1 ea Ziprasidone (Geodon Cap) 20 mg PO HS [facility]; Protocol Last Admin: 11/24/18 21:39 Dose: 20 mg Ziprasidone (Geodon Cap) 20 mg PO DAILY [facility]; Protocol Last Admin: 11/25/18 09:11 Dose: 20 mg Zolpidem Tartrate (Ambien) 10 mg PO HS [facility]; Protocol Last Admin: 11/24/18 21:39 Dose: 10 mg - Labs Labs: 11/23/18 06:20 11/23/18 06:20 PT 12.7 SECONDS (9.4-12.5) H 11/02/18 13:38 INR 1.12 11/02/18 13:38 APTT 39.3 Seconds (26.9-38.3) H 11/02/18 13:38 - Additional Findings Additional findings: - Constitutional Appears: Non-toxic, No Acute Distress, Unkempt - Head Exam Head Exam: NORMOCEPHALIC - Eye Exam Eye Exam: EOMI, PERRL - ENT Exam ENT Exam: Mucous Membranes Moist - Respiratory Exam Respiratory Exam: Clear to Ausculation Bilateral, NORMAL BREATHING PATTERN - Cardiovascular Exam Cardiovascular Exam: REGULAR RHYTHM, RRR - GI/Abdominal Exam GI & Abdominal Exam: Soft, Normal Bowel Sounds. absent: Tenderness - Extremities Exam Extremities Exam: positive for LE (L) weakness - Neurological Exam Neurological Exam: Alert, Awake, CN II-XII Intact (grossly). AAOx3 but at times is also AAOx1 - Psychiatric Exam Psychiatric exam: Agitated, Improved Additional comments: patient has had multiple hallucinations and delusions - Skin Skin Exam: Dry, Intact Assessment and Plan - Assessment and Plan (Free Text) Assessment: 53 year old male with past medical history of hypertension, diabetes mellitus type II, ischemic stroke (left sided paralysis), hyperlipidemia, and metal strapnal in left eye that was removed presents from Psychiatry Unit with right temporal and frontal pareital ischemic infarct with hemorrhagic component confirmed by MRI. Patient was treated in ICU with residual left sided weakness. Patient had Staph Aureus in both blood cultures. No evidence of endocarditis on CARLY with right upper arm cellulitis. Repeat blood culture has been negative. As per ID, continue with daptomycin day 11 for a total of 2 weeks of antibiotics. Midline in place. Please note: RN witnessed patient falling out of bed on his L side. Patient states he was attempting to get up to go to the bathroom. Patient is now resting comfortably in bed and has no complaints. Please see fall note for details. Patient is currently 1:1 due to Patient safety. Patient Plan: Staph Aureus Bacteremia - Blood culture on 11/13: MRSA. Repeat blood culture from 11/14 shows no growth for 5 days. - MRSA of nares is positive. Started bactroban ointment today day 1 of 5 and will recheck nares for MRSA - Procal: 0.09 - HIV negative - CARLY: shows no evidence of valve vegetation - As per ID, continue with daptomycin day 11 out of 14 days. - Midline in place Hemorrhagic Stroke - Head MRI 11/01: right temporal and frontal parietal ischemic infarct with hemorrhagic component. - Head and neck CT on 11/02: Critical stenosis origin R ICA. Greater than 75% stenosis origin L ICA. Mod-severe multifocal stenosis R ICA cavernous. No sign of stenosis L cavernous and intracranial ICA. Slight increase in stenosis of R M1 MCA. - Head CT 11/03: No change in large MCA distribution infarct, No evidence of midline shift. - Head CT 11/05: No acute intracranial hemorrhage. Re-demonstration of large chronic R MCA territory infarct - APA workup negative - Lipid panel shows elevated triglycerides - Continue with aspirin, statin, and plavix. - Aspiration, fall, and seizure precautions - HOB at 30 degrees - Neuro checks Q4 - Dr. Agudelo and Dr. Martinez, Neurology and Neurosurgery, consulted for recommendations. Follow recommendations. Hypertension - BP: 158/98 - Continue Lopressor 25 mg daily Hyperlipidemia - Elevated triglycerides on lipid panel - Continue with lipitor 40 mg daily Delirium-improving - At times, was AAOx1 today. - Continue with geodon [facility], ativan PRN. Xanax stopped. - Dr. Galarza, Psychiatry, was consulted for recommendations. Follow recommendations Diabetes Mellitus Type II - Random glucose: 265 - Medium SSI - Accuchecks ACHS Tobacco Abuse - Nicotine patch daily Insomnia - Continue with ambien Hallucinations and delusions: - Will follow up with Psychiatry regarding recommendations for new hallucinations. - Patient currently on scheduled geodon, antipsychotic. - While patient is hallucinating, not currently causing disturbances. Ppx: - GI prophylaxis: pepcid 20 mg Q12 - DVT prophylaxis: SCD Disposition: PT recommended [facility] however due to patient's insurance, there is difficulty with placement at this time regarding antibiotic, daptomycin availability at facility. Patient has been accepted at [facility] but they cannot accomodate due to isolation. Furthermore, Patient is 1:1 at this time. Will follow-up with SW regarding placement once the former issues have been resolve. Patient seen and case discussed in detail with Dr. Esther Quiroga PGY1 <Sam Santana - Last Filed: 11/25/18 17:34> Objective - Vital Signs/Intake and Output Vital Signs (last 24 hours): Temp Pulse Resp BP Pulse Ox 97.7 F 72 18 150/89 97 11/25/18 17:27 11/25/18 17:27 11/25/18 17:27 11/25/18 17:27 11/25/18 17:27 Intake and Output: 11/25/18 11/25/18 06:59 18:59 Intake Total 560 250 Balance 560 250 - Medications Medications: Current Medications Acetaminophen (Tylenol 325mg Tab) 650 mg PO Q6H PRN PRN Reason: Pain, moderate (4-7) Last Admin: 11/25/18 08:50 Dose: 650 mg Acetaminophen (Tylenol 325 Mg Supp) 325 mg RC Q6H PRN PRN Reason: Fever >100.4 F Aspirin (Aspirin Chewable) 81 mg PO DAILY [facility] Last Admin: 11/25/18 09:09 Dose: 81 mg Atorvastatin Calcium (Lipitor) 40 mg PO DIN [facility] Last Admin: 11/24/18 17:06 Dose: 40 mg Clopidogrel Bisulfate (Plavix) 75 mg PO DAILY [facility] Last Admin: 11/25/18 09:08 Dose: 75 mg Dextrose (Dextrose 50% Inj) 0 ml IV STAT PRN; Protocol PRN Reason: Hypoglycemia Protocol Famotidine (Pepcid) 20 mg PO Q12 [facility] Last Admin: 11/25/18 09:09 Dose: 20 mg Dextrose (Dextrose 5% In Water 1000 Ml) 1,000 mls @ 0 mls/hr IV .Q0M PRN; Protocol PRN Reason: Hypoglycemia Protocol Vancomycin HCl (Vancomycin 1gm) 1 gm in 250 mls @ 167 mls/hr IVPB Q12H [facility]; Protocol Last Admin: 11/25/18 10:00 Dose: 167 mls/hr Insulin Human Regular (Humulin R High) 0 units SC ACHS [facility]; Protocol Last Admin: 11/25/18 13:06 Dose: 2 units Lorazepam (Ativan) 2 mg IVP Q6H PRN; Protocol PRN Reason: Agitation Last Admin: 11/25/18 11:24 Dose: 2 mg Metoprolol Tartrate (Lopressor) 25 mg PO BRKDIN [facility] Last Admin: 11/25/18 08:38 Dose: 25 mg Mupirocin (Bactroban Ointment) 0 gm NS BID [facility] Stop: 11/27/18 18:01 Last Admin: 11/25/18 09:18 Dose: 1 applic Nicotine (Nicoderm Cq) 1 patch TD DAILY [facility] Last Admin: 11/25/18 09:10 Dose: 1 patch Vitamin A (Vitamin A & D Oint Ud Foilpak) 1 ea TOP BID [facility] Last Admin: 11/25/18 09:10 Dose: 1 ea Ziprasidone (Geodon Cap) 20 mg PO HS [facility]; Protocol Last Admin: 11/24/18 21:39 Dose: 20 mg Ziprasidone (Geodon Cap) 20 mg PO DAILY [facility]; Protocol Last Admin: 11/25/18 09:11 Dose: 20 mg Zolpidem Tartrate (Ambien) 10 mg PO HS [facility]; Protocol Last Admin: 11/24/18 21:39 Dose: 10 mg - Labs Labs: 11/23/18 06:20 11/23/18 06:20 PT 12.7 SECONDS (9.4-12.5) H 11/02/18 13:38 INR 1.12 11/02/18 13:38 APTT 39.3 Seconds (26.9-38.3) H 11/02/18 13:38 Attending/Attestation - Attestation I have personally seen and examined this patient.: Yes I have fully participated in the care of the patient.: Yes I have reviewed all pertinent clinical information, including history, physical exam and plan: Yes Notes (Text): 11/25/18 17:31 Medical record note made by the resident after discussion with my direction and input after the patient was personally seen and examined by me. I have reviewed the chart and agree that the record accurately reflects by personal performance of the history, physical exam, data review, and medical decision-making, in the course for the patient. I have also personally directed the plan of care. 53 year old male with past medical history of hypertension, diabetes, and CVA (07/2018) who was initially admitted under psychiatric unit for depression. He was transferred to medical floor for +MRI findings showing subacute to chronic ischemic infarction involving the right frontal, temporal and parietal lobes with accompanying hemorrhagic component. CTA head/neck showed critical stenosis of right ICA, >75% stenosis of left ICA and moderate to severe multifocal stenosis of the cavernous and supraclinoid segments of right ICA. He was initially transferred to ICU for close ICU monitoring. Patient was evaluated by Neurosurgery and felt these MRI finding are chronic, no acute intervention is needed. Patient is on aspirin, plavix and statin. Vascular surgery recommended outpatient follow up. Psychiatry is following. Pt spiked temp on 11/13, set of blood culture grew MRSA.CARLY was negative for vegetations. Continue with iv antibiotics for MRSA bacteremia. ID is following. Continue with fall precaution. PT is following; d/c planning to rehab once accepted, need to off 1.1 prior to discharge. Prognosis is guarded.
--- NOTE | 2018-11-25 14:34 | PN ---
DATE: 11/25/2018 Followup note for Mr. Leo Nas by psychiatrist Dr. Galarza. SUBJECTIVE: The patient was seen today as per report, the patient was agitated throwing things was verbally abusive towards staff and it is deviation from the patient's baseline. For the past couple of days, the patient was doing fine. No agitation, no aggression, but overnight the patient started to see things and became very agitated. The patient was seen and examined today. The patient presented to be psychotic. The patient was seeing imaginary massive balloons behind this television writer, obviously there are no balloons behind this television writer. The patient appears to be irritable, annoyed and mildly restless. Medical team started the patient on one to one observation and I agreed with that. This television writer also suggested medical team to call for neurological followup because last time, when the patient was actively hallucinating, he had stroke, besides that, no acute changes. The patient still on IV antibiotics for MRSA sepsis. OBJECTIVE: VITAL SIGNS: Reviewed. Temperature 97.8, pulse is 90, blood pressure 113/86, respiration 26 and saturation is 96. MEDICATIONS: Reviewed. The patient is on Tylenol, aspirin, Lipitor, Plavix, also on dextrose, Pepcid, Humulin, Ativan 2 mg IV push every 6 hours as needed, last dose was at 11:24 a.m. today. Recently he was on Lopressor, Mupirocin, Nicoderm, vancomycin, vitamin A, Geodon 20 mg at the nighttime and 20 mg daily, Ambien 10 mg at the nighttime. MENTAL STATUS EXAMINATION: As this television writer described above. The patient presented to be restless and agitated, actively hallucinating. Mood described as fine. Affect was constricted. Thought process seems to be disorganized. Thought content, the patient is psychotic. The patient denied any thoughts of harming himself or others, but the patient has tendency of saying things that he want to end up his life. He wants to kill himself, but these statements related to frustration due to his medical issues. Insight and judgment seems to be impaired. Impulses are unpredictable. IMPRESSION: The patient obviously is in delirium stage. 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 PLAN: Continue current management. Continue current medication. This television writer advised medical team to call for neurology followup to rule out any new strokes and new neurological deficit. Besides that, please consider to start Depakote if there is no contraindication from the neurology standpoint. Meanwhile, we will follow up every other day. Thank you very much for letting me participate in care of your patient, agree with continue one to one observation. Savanah Galarza MD [facility]
--- NOTE | 2018-11-25 21:20 | CP.PCM.PN ---
Subjective - Date & Time of Evaluation Date of Evaluation: 11/25/18 Time of Evaluation: 11:50 - Subjective Subjective: Comfortable, afebrile. Objective - Vital Signs/Intake and Output Vital Signs (last 24 hours): Temp Pulse Resp BP Pulse Ox 97.7 F 79 20 121/76 99 11/24/18 17:17 11/24/18 17:17 11/24/18 17:17 11/24/18 17:17 11/24/18 17:17 - Medications Medications: Current Medications Acetaminophen (Tylenol 325mg Tab) 650 mg PO Q6H PRN PRN Reason: Pain, moderate (4-7) Last Admin: 11/23/18 08:21 Dose: 650 mg Acetaminophen (Tylenol 325 Mg Supp) 325 mg RC Q6H PRN PRN Reason: Fever >100.4 F Aspirin (Aspirin Chewable) 81 mg PO DAILY [facility] Last Admin: 11/24/18 09:11 Dose: 81 mg Atorvastatin Calcium (Lipitor) 40 mg PO DIN [facility] Last Admin: 11/24/18 17:06 Dose: 40 mg Clopidogrel Bisulfate (Plavix) 75 mg PO DAILY [facility] Last Admin: 11/24/18 09:13 Dose: 75 mg Dextrose (Dextrose 50% Inj) 0 ml IV STAT PRN; Protocol PRN Reason: Hypoglycemia Protocol Famotidine (Pepcid) 20 mg PO Q12 [facility] Last Admin: 11/24/18 09:12 Dose: 20 mg Dextrose (Dextrose 5% In Water 1000 Ml) 1,000 mls @ 0 mls/hr IV .Q0M PRN; Protocol PRN Reason: Hypoglycemia Protocol Vancomycin HCl (Vancomycin 1gm) 1 gm in 250 mls @ 167 mls/hr IVPB Q12H [facility]; Protocol Insulin Human Regular (Humulin R High) 0 units SC ACHS [facility]; Protocol Last Admin: 11/24/18 16:01 Dose: Not Given Lorazepam (Ativan) 2 mg IVP Q6H PRN; Protocol PRN Reason: Agitation Last Admin: 11/24/18 04:50 Dose: 2 mg Metoprolol Tartrate (Lopressor) 25 mg PO BRKDIN [facility] Last Admin: 11/24/18 17:07 Dose: 25 mg Mupirocin (Bactroban Ointment) 0 gm NS BID [facility] Stop: 11/27/18 18:01 Last Admin: 11/24/18 17:05 Dose: 1 applic Nicotine (Nicoderm Cq) 1 patch TD DAILY [facility] Last Admin: 11/24/18 09:12 Dose: 1 patch Vitamin A (Vitamin A & D Oint Ud Foilpak) 1 ea TOP BID [facility] Last Admin: 11/24/18 17:07 Dose: 1 ea Ziprasidone (Geodon Cap) 20 mg PO HS [facility]; Protocol Last Admin: 11/23/18 22:30 Dose: 20 mg Ziprasidone (Geodon Cap) 20 mg PO DAILY [facility]; Protocol Last Admin: 11/24/18 09:11 Dose: 20 mg Zolpidem Tartrate (Ambien) 10 mg PO HS [facility]; Protocol Last Admin: 11/23/18 22:16 Dose: 10 mg - Labs Labs: 11/23/18 06:20 11/23/18 06:20 PT 12.7 SECONDS (9.4-12.5) H 11/02/18 13:38 INR 1.12 11/02/18 13:38 APTT 39.3 Seconds (26.9-38.3) H 11/02/18 13:38 - Constitutional Appears: Chronically Ill - Head Exam Head Exam: NORMAL INSPECTION - Respiratory Exam Respiratory Exam: Decreased Breath Sounds - Cardiovascular Exam Cardiovascular Exam: +S1, +S2 - GI/Abdominal Exam GI & Abdominal Exam: Soft. absent: Tenderness Assessment and Plan - Assessment and Plan (Free Text) Plan: Assessment sepsis due to Methicillin-resistant Staph aureus bacteremia in this patient with right parietal and temporal lobe infarct with hemorrhagic conversion; no evidence of endocarditis on CARLY done today in this patient with right upper arm cellulitis CVA DM HTN dyslipidemia depression significant smoking Plan continue IV Vancomycin to complete therapy - day 12 from first negative blood cx; repeat blood cx are negative; reviewed CARLY results done by Dr. Godinez will need at least 2 weeks of antibiotics from the first negative blood cx - follow up Vanco trough will continue to monitor clinically discussed with Dr. Conway previously
[2018-11-26 08:46] LABS: BASO # 0.04 K/mm3 (0.0-2.0); BASO % 0.5 % (0.0-3.0); EOS # 0.2 (0.0-0.7); HEMOGLOBIN 11.5 g/dL (14.0-18.0); LYMPH # 2.2 (1.2-3.4); LYMPH % 29.1 % (22.0-35.0); MEAN CELL VOLUME 85.2 fl (80.0-105.0); MEAN CORPUSCULAR HEMOGLOBIN 26.6 pg (25.0-35.0); MEAN CORPUSCULAR HGB CONC 31.2 g/dl (31.0-37.0); MEAN PLATELET VOLUME 9.9 fl (7.0-11.0); MONO # 0.5 (0.1-0.6); MONO % 6.1 % (1.0-6.0); RBC 4.33 10^6/uL (3.5-6.1); RED CELL DISTRIBUTION WIDTH 14.6 % (11.5-14.5); WHITE BLOOD COUNT 7.7 10^3/uL (4.5-11.0)
[2018-11-26 08:56] LABS: ALB/GLOB RATIO 1.2 (1.1-1.8); ALBUMIN 3.9 g/dL (3.0-4.8); ALT/SGPT 44 U/L (7-56); AST/SGOT 33 U/L (17-59); BLOOD UREA NITROGEN 17 mg/dL (7-21); CALCIUM 9.6 mg/dL (8.4-10.5); GFR NON-AFRICAN AMERICAN > 60
[2018-11-26] MEDS: Insulin Reg-HIGH-Coverage SC SCH ×4 (09:45→22:01)
[2018-11-26] MEDS: Vancomycin 1gm in NS 250ml 1 GM/250 ML BAG IVPB SCH ×2 (09:46→22:04)
[2018-11-26] MEDS: Vitamins A & D Oint UD Foilpak TOP SCH ×2 (09:46→17:35)
[2018-11-26] MEDS: Mupirocin 2% Ointment 15 GM TUBE NS SCH ×2 (09:47→17:39)
--- NOTE | 2018-11-26 14:18 | CP.PCM.PN ---
<Uziel Quiroga - Last Filed: 11/26/18 14:12> Subjective - Date & Time of Evaluation Date of Evaluation: 11/26/18 Time of Evaluation: 14:12 - Subjective Subjective: PGY1 Medicine Progress Note for Dr. Santana Patient was seen and evaluated at bedside. Per Nurse, Patient was hallucinating earlier this morning. Also per Nurse, Patient has been calling nurses names, throwing pillows at the nurses. Patient continues to be 1:1. ROS unremarkable for chest pain, shortness of breath, abdominal pain. Patient endorses weakness. Objective - Vital Signs/Intake and Output Vital Signs (last 24 hours): Temp Pulse Resp BP Pulse Ox 98.0 F 93 H 18 98/77 L 92 L 11/26/18 06:00 11/26/18 06:00 11/26/18 06:00 11/26/18 06:00 11/26/18 06:00 Intake and Output: 11/26/18 11/26/18 06:59 18:59 Intake Total 240 Balance 240 - Medications Medications: Current Medications Acetaminophen (Tylenol 325mg Tab) 650 mg PO Q6H PRN PRN Reason: Pain, moderate (4-7) Last Admin: 11/25/18 08:50 Dose: 650 mg Acetaminophen (Tylenol 325 Mg Supp) 325 mg RC Q6H PRN PRN Reason: Fever >100.4 F Aspirin (Aspirin Chewable) 81 mg PO DAILY [facility] Last Admin: 11/26/18 09:46 Dose: 81 mg Atorvastatin Calcium (Lipitor) 40 mg PO DIN [facility] Last Admin: 11/25/18 18:07 Dose: 40 mg Clopidogrel Bisulfate (Plavix) 75 mg PO DAILY [facility] Last Admin: 11/26/18 09:45 Dose: 75 mg Dextrose (Dextrose 50% Inj) 0 ml IV STAT PRN; Protocol PRN Reason: Hypoglycemia Protocol Famotidine (Pepcid) 20 mg PO Q12 [facility] Last Admin: 11/26/18 09:45 Dose: 20 mg Dextrose (Dextrose 5% In Water 1000 Ml) 1,000 mls @ 0 mls/hr IV .Q0M PRN; Protocol PRN Reason: Hypoglycemia Protocol Vancomycin HCl (Vancomycin 1gm) 1 gm in 250 mls @ 167 mls/hr IVPB Q12H [facility]; Protocol Last Admin: 11/26/18 09:46 Dose: 167 mls/hr Insulin Human Regular (Humulin R High) 0 units SC ACHS [facility]; Protocol Last Admin: 11/26/18 12:58 Dose: Not Given Lorazepam (Ativan) 2 mg IVP Q6H PRN; Protocol PRN Reason: Agitation Last Admin: 11/26/18 12:45 Dose: 2 mg Metoprolol Tartrate (Lopressor) 25 mg PO BRKDIN [facility] Last Admin: 11/26/18 09:45 Dose: 25 mg Mupirocin (Bactroban Ointment) 0 gm NS BID [facility] Stop: 11/27/18 18:01 Last Admin: 11/26/18 09:47 Dose: 1 applic Nicotine (Nicoderm Cq) 1 patch TD DAILY [facility] Last Admin: 11/26/18 09:46 Dose: 1 patch Vitamin A (Vitamin A & D Oint Ud Foilpak) 1 ea TOP BID [facility] Last Admin: 11/26/18 09:46 Dose: 1 ea Ziprasidone (Geodon Cap) 20 mg PO HS [facility]; Protocol Last Admin: 11/25/18 21:45 Dose: 20 mg Ziprasidone (Geodon Cap) 20 mg PO DAILY [facility]; Protocol Last Admin: 11/26/18 09:45 Dose: 20 mg Zolpidem Tartrate (Ambien) 10 mg PO HS [facility]; Protocol Last Admin: 11/25/18 21:44 Dose: 10 mg - Labs Labs: 11/26/18 08:30 11/26/18 08:30 PT 12.7 SECONDS (9.4-12.5) H 11/02/18 13:38 INR 1.12 11/02/18 13:38 APTT 39.3 Seconds (26.9-38.3) H 11/02/18 13:38 - Additional Findings Additional findings: - Constitutional Appears: Non-toxic, No Acute Distress, Unkempt - Head Exam Head Exam: NORMOCEPHALIC - Eye Exam Eye Exam: EOMI, PERRL - ENT Exam ENT Exam: Mucous Membranes Moist - Respiratory Exam Respiratory Exam: Clear to Ausculation Bilateral, NORMAL BREATHING PATTERN - Cardiovascular Exam Cardiovascular Exam: REGULAR RHYTHM, RRR - GI/Abdominal Exam GI & Abdominal Exam: Soft, Normal Bowel Sounds. absent: Tenderness - Extremities Exam Extremities Exam: positive for LE (L) weakness - Neurological Exam Neurological Exam: Alert, Awake, CN II-XII Intact (grossly). 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 Patient was treated in ICU with residual left sided weakness. Patient had Staph Aureus in both blood cultures. No evidence of endocarditis on CARLY with right upper arm cellulitis. Repeat blood culture has been negative. As per ID, discontinued daptomycin. Currently on Vancomycin 1g IVPB Q12H day [address] Please note: RN witnessed patient falling out of bed on his L side. Patient states he was attempting to get up to go to the bathroom. Patient is now resting comfortably in bed and has no complaints. Please see fall note for details. Patient is currently 1:1 due to Patient safety. Per Dr. Pavon (Psychiatry) 1:1 still necessary for Patient's safety. Will continue to follow recommendations. Plan: Staph Aureus Bacteremia - Blood culture on 11/13: MRSA. Repeat blood culture from 11/14 shows no growth for 5 days. - MRSA of nares is positive. Started bactroban ointment today day 1 of 5 and will recheck nares for MRSA - Procal: 0.09 - HIV negative - CARLY: shows no evidence of valve vegetation - As per ID, Discontinued daptomycin - Vancomycin 1g IVPB Q12H day 2 - Midline in place Hemorrhagic Stroke - Head MRI 11/01: right temporal and frontal parietal ischemic infarct with hemorrhagic component. - Head and neck CT on 11/02: Critical stenosis origin R ICA. Greater than 75% stenosis origin L ICA. Mod-severe multifocal stenosis R ICA cavernous. No sign of stenosis L cavernous and intracranial ICA. Slight increase in stenosis of R M1 MCA. - Head CT 11/03: No change in large MCA distribution infarct, No evidence of midline shift. - Head CT 11/05: No acute intracranial hemorrhage. Re-demonstration of large chronic R MCA territory infarct - APA workup negative - Lipid panel shows elevated triglycerides - Continue with aspirin, statin, and plavix. - Aspiration, fall, and seizure precautions - HOB at 30 degrees - Neuro checks Q4 - Dr. Agudelo and Dr. Martinez, Neurology and Neurosurgery, consulted for recommendations. Follow recommendations. Hypertension - BP: 158/98 - Continue Lopressor 25 mg daily Hyperlipidemia - Elevated triglycerides on lipid panel - Continue with lipitor 40 mg daily Delirium - At times, was AAOx1 today. - Continue with geodon [facility], ambien 10mg PO HS, Seroquel 25mg PO given once overnight. - Continue Ativan PRN - Dr. Galarza, Psychiatry, was consulted for recommendations. Follow recommendations Diabetes Mellitus Type II - Random glucose: 265 - Medium SSI - Accuchecks ACHS Tobacco Abuse - Nicotine patch daily Insomnia - Continue with ambien Hallucinations and delusions: - Will follow up with Psychiatry regarding recommendations for new hallucinations. - Patient currently on scheduled geodon, antipsychotic. - While patient is hallucinating, not currently causing disturbances. Ppx: - GI prophylaxis: pepcid 20 mg Q12 - DVT prophylaxis: SCD Disposition: PT recommended [facility] however due to patient's insurance, there is difficulty with placement at this time regarding antibiotic, daptomycin availability at facility. Patient has been accepted at [facility] but they cannot accomodate due to isolation. Furthermore, Patient is 1:1 at this time. Will follow-up with SW regarding placement once the former issues have been resolve. Patient seen and case discussed in detail with Dr. Esther Quiroga PGY1 <Sam Santana - Last Filed: 11/26/18 16:25> Objective - Vital Signs/Intake and Output Vital Signs (last 24 hours): Temp Pulse Resp BP Pulse Ox 98.0 F 93 H 18 98/77 L 92 L 11/26/18 06:00 11/26/18 06:00 11/26/18 06:00 11/26/18 06:00 11/26/18 06:00 Intake and Output: 11/26/18 11/26/18 06:59 18:59 Intake Total 240 Balance 240 - Medications Medications: Current Medications Acetaminophen (Tylenol 325mg Tab) 650 mg PO Q6H PRN PRN Reason: Pain, moderate (4-7) Last Admin: 11/25/18 08:50 Dose: 650 mg Acetaminophen (Tylenol 325 Mg Supp) 325 mg RC Q6H PRN PRN Reason: Fever >100.4 F Aspirin (Aspirin Chewable) 81 mg PO DAILY [facility] Last Admin: 11/26/18 09:46 Dose: 81 mg Atorvastatin Calcium (Lipitor) 40 mg PO DIN [facility] Last Admin: 11/25/18 18:07 Dose: 40 mg Clopidogrel Bisulfate (Plavix) 75 mg PO DAILY [facility] Last Admin: 11/26/18 09:45 Dose: 75 mg Dextrose (Dextrose 50% Inj) 0 ml IV STAT PRN; Protocol PRN Reason: Hypoglycemia Protocol Famotidine (Pepcid) 20 mg PO Q12 [facility] Last Admin: 11/26/18 09:45 Dose: 20 mg Dextrose (Dextrose 5% In Water 1000 Ml) 1,000 mls @ 0 mls/hr IV .Q0M PRN; Protocol PRN Reason: Hypoglycemia Protocol Vancomycin HCl (Vancomycin 1gm) 1 gm in 250 mls @ 167 mls/hr IVPB Q12H [facility]; Protocol Last Admin: 11/26/18 09:46 Dose: 167 mls/hr Insulin Human Regular (Humulin R High) 0 units SC ACHS [facility]; Protocol Last Admin: 11/26/18 12:58 Dose: Not Given Lorazepam (Ativan) 2 mg IVP Q6H PRN; Protocol PRN Reason: Agitation Last Admin: 11/26/18 12:45 Dose: 2 mg Metoprolol Tartrate (Lopressor) 25 mg PO BRKDIN [facility] Last Admin: 11/26/18 09:45 Dose: 25 mg Mupirocin (Bactroban Ointment) 0 gm NS BID [facility] Stop: 11/27/18 18:01 Last Admin: 11/26/18 09:47 Dose: 1 applic Nicotine (Nicoderm Cq) 1 patch TD DAILY [facility] Last Admin: 11/26/18 09:46 Dose: 1 patch Vitamin A (Vitamin A & D Oint Ud Foilpak) 1 ea TOP BID [facility] Last Admin: 11/26/18 09:46 Dose: 1 ea Ziprasidone (Geodon Cap) 20 mg PO HS [facility]; Protocol Last Admin: 11/25/18 21:45 Dose: 20 mg Ziprasidone (Geodon Cap) 20 mg PO DAILY [facility]; Protocol Last Admin: 11/26/18 09:45 Dose: 20 mg Zolpidem Tartrate (Ambien) 10 mg PO HS [facility]; Protocol Last Admin: 11/25/18 21:44 Dose: 10 mg - Labs Labs: 11/26/18 08:30 11/26/18 08:30 PT 12.7 SECONDS (9.4-12.5) H 11/02/18 13:38 INR 1.12 11/02/18 13:38 APTT 39.3 Seconds (26.9-38.3) H 11/02/18 13:38 Attending/Attestation - Attestation I have personally seen and examined this patient.: Yes I have fully participated in the care of the patient.: Yes I have reviewed all pertinent clinical information, including history, physical exam and plan: Yes Notes (Text): 11/26/18 16:23 Medical record note made by the resident after discussion with my direction and input after the patient was personally seen and examined by me. I have reviewed the chart and agree that the record accurately reflects by personal performance of the history, physical exam, data review, and medical decision-making, in the course for the patient. I have also personally directed the plan of care. 53 year old male with past medical history of hypertension, diabetes, and CVA (07/2018) who was initially admitted under psychiatric unit for depression. He was transferred to medical floor for +MRI findings showing subacute to chronic ischemic infarction involving the right frontal, temporal and parietal lobes with accompanying hemorrhagic component. CTA head/neck showed critical stenosis of right ICA, >75% stenosis of left ICA and moderate to severe multifocal gustavo nosis of the cavernous and supraclinoid segments of right ICA. He was initially transferred to ICU for close ICU monitoring. Patient was evaluated by Neurosurgery and felt these MRI finding are chronic, no acute intervention is needed. Patient is on aspirin, plavix and statin. Vascular surgery recommended outpatient follow up. Psychiatry is following. Pt spiked temp on 11/13, set of blood culture grew MRSA.CARLY was negative for vegetations. Continue with iv antibiotics for MRSA bacteremia. ID is following. Patient is still agitated, and is on 1.1.Case was discussed with PsychiatrynDrZeina.Medications has been adjusted today.Patient to off 1.1 24 hour prior to discharge. Continue with fall precaution. Prognosis is guarded.
--- NOTE | 2018-11-26 16:00 | CP.PCM.PN ---
Subjective - Date & Time of Evaluation Date of Evaluation: 11/26/18 Time of Evaluation: 12:20 - Subjective Subjective: No headache, no fevers, no chest pain. Objective - Vital Signs/Intake and Output Vital Signs (last 24 hours): Temp Pulse Resp BP Pulse Ox 97.7 F 72 18 150/89 97 11/25/18 17:27 11/25/18 18:08 11/25/18 17:27 11/25/18 18:08 11/25/18 17:27 Intake and Output: 11/25/18 11/26/18 18:59 06:59 Intake Total 250 Balance 250 - Medications Medications: Current Medications Acetaminophen (Tylenol 325mg Tab) 650 mg PO Q6H PRN PRN Reason: Pain, moderate (4-7) Last Admin: 11/25/18 08:50 Dose: 650 mg Acetaminophen (Tylenol 325 Mg Supp) 325 mg RC Q6H PRN PRN Reason: Fever >100.4 F Aspirin (Aspirin Chewable) 81 mg PO DAILY [facility] Last Admin: 11/25/18 09:09 Dose: 81 mg Atorvastatin Calcium (Lipitor) 40 mg PO DIN [facility] Last Admin: 11/25/18 18:07 Dose: 40 mg Clopidogrel Bisulfate (Plavix) 75 mg PO DAILY [facility] Last Admin: 11/25/18 09:08 Dose: 75 mg Dextrose (Dextrose 50% Inj) 0 ml IV STAT PRN; Protocol PRN Reason: Hypoglycemia Protocol Famotidine (Pepcid) 20 mg PO Q12 [facility] Last Admin: 11/25/18 09:09 Dose: 20 mg Dextrose (Dextrose 5% In Water 1000 Ml) 1,000 mls @ 0 mls/hr IV .Q0M PRN; Protocol PRN Reason: Hypoglycemia Protocol Vancomycin HCl (Vancomycin 1gm) 1 gm in 250 mls @ 167 mls/hr IVPB Q12H [facility]; Protocol Last Admin: 11/25/18 10:00 Dose: 167 mls/hr Insulin Human Regular (Humulin R High) 0 units SC ACHS [facility]; Protocol Last Admin: 11/25/18 20:23 Dose: Not Given Lorazepam (Ativan) 2 mg IVP Q6H PRN; Protocol PRN Reason: Agitation Last Admin: 11/25/18 20:42 Dose: 2 mg Metoprolol Tartrate (Lopressor) 25 mg PO BRKDIN [facility] Last Admin: 11/25/18 18:08 Dose: 25 mg Mupirocin (Bactroban Ointment) 0 gm NS BID [facility] Stop: 11/27/18 18:01 Last Admin: 11/25/18 18:00 Dose: 1 applic Nicotine (Nicoderm Cq) 1 patch TD DAILY [facility] Last Admin: 11/25/18 09:10 Dose: 1 patch Vitamin A (Vitamin A & D Oint Ud Foilpak) 1 ea TOP BID [facility] Last Admin: 11/25/18 18:09 Dose: 1 ea Ziprasidone (Geodon Cap) 20 mg PO HS [facility]; Protocol Last Admin: 11/24/18 21:39 Dose: 20 mg Ziprasidone (Geodon Cap) 20 mg PO DAILY [facility]; Protocol Last Admin: 11/25/18 09:11 Dose: 20 mg Zolpidem Tartrate (Ambien) 10 mg PO HS [facility]; Protocol Last Admin: 11/24/18 21:39 Dose: 10 mg - Labs Labs: 11/23/18 06:20 11/23/18 06:20 PT 12.7 SECONDS (9.4-12.5) H 11/02/18 13:38 INR 1.12 11/02/18 13:38 APTT 39.3 Seconds (26.9-38.3) H 11/02/18 13:38 - Constitutional Appears: Chronically Ill - Head Exam Head Exam: NORMAL INSPECTION - Respiratory Exam Respiratory Exam: Decreased Breath Sounds - Cardiovascular Exam Cardiovascular Exam: +S1, +S2 - GI/Abdominal Exam GI & Abdominal Exam: Soft. absent: Tenderness Assessment and Plan - Assessment and Plan (Free Text) Plan: Assessment sepsis due to Methicillin-resistant Staph aureus bacteremia in this patient with right parietal and temporal lobe infarct with hemorrhagic conversion; no evidence of endocarditis on CARLY done today in this patient with right upper arm cellulitis CVA DM HTN dyslipidemia depression significant smoking Plan continue IV Vancomycin to complete therapy - day 13 from first negative blood cx; repeat blood cx are negative; reviewed CARLY results done by Dr. Godinez will need at least 2 weeks of antibiotics from the first negative blood cx - follow up Vanco trough will continue to monitor clinically discussed with Dr. Conway previously
[2018-11-26] MEDS: Divalproex 500 mg DR(BID formulation) PO SCH (17:34)
--- NOTE | 2018-11-27 02:04 | PN ---
DATE: 11/26/2018 FOLLOWUP NOTE SUBJECTIVE: Medical team requested this brief writer to re-evaluate the patient for agitation and restlessness. The patient was seen today. The patient is on one-to-one now because the patient is restless, agitated, has hallucinations, also the patient was throwing pillows on the floor. This brief writer reviewed medications. Discussed with Dr. Santana. Discussion about change of medications took place today. This brief writer will implement Depakote 500 mg twice a day for mood stabilization as well as Geodon will be discontinued, Thorazine will be started, and I hope that this combination will help the patient. PHYSICAL EXAMINATION: VITAL SIGNS: Reviewed. Temperature 98, pulse is 93, blood pressure 98/77, respirations 18, oxygen saturation is 92. MEDICATIONS: Reviewed. New medications: Thorazine 50 mg twice a day and at the nighttime, also Depakote 500 mg twice a day. Geodon was discontinued. LABORATORY DATA: Labs reviewed. Most recent was from today. Chemistry reviewed. Urinalysis reviewed. Immunology reviewed and serology reviewed. MENTAL STATUS EXAMINATION: The patient appears to be very confused. The patient presented to be agitated, restless. The patient was talking to imaginary people. Then, the patient stopped talking to me in that high-pitched voice. Poor eye contact. Mood described as okay. Affect was irritable and angry. Thought process disorganized. Thought content, the patient denied hallucinations but obviously the patient is hallucinating, seeing things and acting bizarre. Insight and judgment seems to be impaired. Impulses are unpredictable. 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 The patient has a stroke which occupied frontotemporal area which could affect personality change and disinhibition. PLAN: Medications were changed today. Thorazine was started as well as Depakote. The patient is on one-to-one. Family involved. The patient was on antibiotics for sepsis, MRSA. Dr. Foster will follow up on this patient tomorrow. Should you have any questions, give me a call back. Thank you very much for letting me to participate in care of your patient. Savanah Galarza MD [facility] # [phone]
[2018-11-27 08:41] LABS: BASO # 0.04 K/mm3 (0.0-2.0); BASO % 0.5 % (0.0-3.0); EOS # 0.3 (0.0-0.7); EOS % 3.3 % (1.5-5.0); HEMOGLOBIN 11.5 g/dL (14.0-18.0); LYMPH # 2.8 (1.2-3.4); LYMPH % 37.5 % (22.0-35.0); MEAN CELL VOLUME 85.8 fl (80.0-105.0); MEAN CORPUSCULAR HEMOGLOBIN 27.1 pg (25.0-35.0); MEAN CORPUSCULAR HGB CONC 31.6 g/dl (31.0-37.0); MEAN PLATELET VOLUME 9.8 fl (7.0-11.0); MONO # 0.7 (0.1-0.6); MONO % 9.6 % (1.0-6.0); RBC 4.24 10^6/uL (3.5-6.1); RED CELL DISTRIBUTION WIDTH 14.7 % (11.5-14.5); WHITE BLOOD COUNT 7.5 10^3/uL (4.5-11.0)
[2018-11-27 09:11] LABS: ALB/GLOB RATIO 1.2 (1.1-1.8); ALBUMIN 3.9 g/dL (3.0-4.8); ALT/SGPT 39 U/L (7-56); AST/SGOT 26 U/L (17-59); BLOOD UREA NITROGEN 18 mg/dL (7-21); CALCIUM 9.5 mg/dL (8.4-10.5); GFR NON-AFRICAN AMERICAN > 60
--- NOTE | 2018-11-27 10:01 | CP.PCM.PCO ---
Addendum Addendum: Will interview in the AM, patient was deeply sleeping during my visit with this morning. 11/27/18 10:00
[2018-11-27] MEDS: Divalproex 500 mg DR(BID formulation) PO SCH ×2 (10:07→17:22)
[2018-11-27] MEDS: Mupirocin 2% Ointment 15 GM TUBE NS SCH ×2 (10:07→17:22)
[2018-11-27] MEDS: Insulin Reg-HIGH-Coverage SC SCH ×4 (10:08→21:45)
[2018-11-27] MEDS: Vancomycin 1gm in NS 250ml 1 GM/250 ML BAG IVPB SCH ×2 (10:10→21:44)
[2018-11-27] MEDS: Vitamins A & D Oint UD Foilpak TOP SCH ×2 (10:11→17:34)
--- NOTE | 2018-11-27 10:23 | CP.PCM.PN ---
<Uziel Quiroga - Last Filed: 11/27/18 10:19> Subjective - Date & Time of Evaluation Date of Evaluation: 11/27/18 Time of Evaluation: 10:20 - Subjective Subjective: PGY1 Medicine Progress Note for Dr. Santana Patient was seen and evaluated at bedside. Patient is asleep. Patient continues to be 1:1. Unable to obtain ROS because Patient was sleeping at the time of evaluation. Objective - Vital Signs/Intake and Output Vital Signs (last 24 hours): Temp Pulse Resp BP Pulse Ox 98.4 F 81 19 130/76 96 11/27/18 08:01 11/27/18 08:08 11/27/18 08:01 11/27/18 08:08 11/27/18 08:01 - Medications Medications: Current Medications Acetaminophen (Tylenol 325mg Tab) 650 mg PO Q6H PRN PRN Reason: Pain, moderate (4-7) Last Admin: 11/25/18 08:50 Dose: 650 mg Acetaminophen (Tylenol 325 Mg Supp) 325 mg RC Q6H PRN PRN Reason: Fever >100.4 F Aspirin (Aspirin Chewable) 81 mg PO DAILY [facility] Last Admin: 11/27/18 10:06 Dose: 81 mg Atorvastatin Calcium (Lipitor) 40 mg PO DIN [facility] Last Admin: 11/26/18 17:34 Dose: 40 mg Chlorpromazine (Thorazine) 50 mg PO BID [facility]; Protocol Last Admin: 11/27/18 10:10 Dose: 50 mg Chlorpromazine (Thorazine) 50 mg PO HS [facility]; Protocol Last Admin: 11/26/18 22:03 Dose: 50 mg Clopidogrel Bisulfate (Plavix) 75 mg PO DAILY [facility] Last Admin: 11/27/18 10:10 Dose: 75 mg Dextrose (Dextrose 50% Inj) 0 ml IV STAT PRN; Protocol PRN Reason: Hypoglycemia Protocol Divalproex Sodium (Depakote Dr(*Bid*)) 500 mg PO BID [facility] Last Admin: 11/27/18 10:07 Dose: 500 mg Famotidine (Pepcid) 20 mg PO Q12 [facility] Last Admin: 11/27/18 10:09 Dose: 20 mg Dextrose (Dextrose 5% In Water 1000 Ml) 1,000 mls @ 0 mls/hr IV .Q0M PRN; Protocol PRN Reason: Hypoglycemia Protocol Vancomycin HCl (Vancomycin 1gm) 1 gm in 250 mls @ 167 mls/hr IVPB Q12H [facility]; Protocol Last Admin: 11/27/18 10:10 Dose: 167 mls/hr Insulin Human Regular (Humulin R High) 0 units SC ACHS [facility]; Protocol Last Admin: 11/27/18 10:08 Dose: 4 units Lorazepam (Ativan) 2 mg IVP Q6H PRN; Protocol PRN Reason: Agitation Last Admin: 11/26/18 23:33 Dose: 2 mg Metoprolol Tartrate (Lopressor) 25 mg PO BRKDIN [facility] Last Admin: 11/27/18 08:08 Dose: 25 mg Mupirocin (Bactroban Ointment) 0 gm NS BID [facility] Stop: 11/27/18 18:01 Last Admin: 11/27/18 10:07 Dose: 1 applic Nicotine (Nicoderm Cq) 1 patch TD DAILY [facility] Last Admin: 11/27/18 10:09 Dose: 1 patch Vitamin A (Vitamin A & D Oint Ud Foilpak) 1 ea TOP BID [facility] Last Admin: 11/27/18 10:11 Dose: 1 ea Zolpidem Tartrate (Ambien) 10 mg PO HS [facility]; Protocol Last Admin: 11/26/18 21:58 Dose: 10 mg - Labs Labs: 11/27/18 08:30 11/27/18 08:30 PT 12.7 SECONDS (9.4-12.5) H 11/02/18 13:38 INR 1.12 11/02/18 13:38 APTT 39.3 Seconds (26.9-38.3) H 11/02/18 13:38 - Additional Findings Additional findings: - Constitutional Appears: Non-toxic, No Acute Distress, Unkempt - Head Exam Head Exam: NORMOCEPHALIC - Eye Exam Eye Exam: EOMI, PERRL - ENT Exam ENT Exam: Mucous Membranes Moist - Respiratory Exam Respiratory Exam: Clear to Ausculation Bilateral, NORMAL BREATHING PATTERN - Cardiovascular Exam Cardiovascular Exam: REGULAR RHYTHM, RRR - GI/Abdominal Exam GI & Abdominal Exam: Soft, Normal Bowel Sounds. absent: Tenderness - Extremities Exam Extremities Exam: positive for LE (L) weakness - Neurological Exam Neurological Exam: Alert, Awake, CN II-XII Intact (grossly). AAOx3 but at times is also AAOx1 - Psychiatric Exam Psychiatric exam: Agitated, Improved Additional comments: patient has had multiple hallucinations and delusions - Skin Skin Exam: Dry, Intact Assessment and Plan - Assessment and Plan (Free Text) Assessment: 53 year old male with past medical history of hypertension, diabetes mellitus type II, ischemic stroke (left sided paralysis), hyperlipidemia, and metal strapnal in left eye that was removed presents from Psychiatry Unit with right temporal and frontal pareital ischemic infarct with hemorrhagic component confirmed by MRI. Patient was treated in ICU with residual left sided weakness. Patient had Staph Aureus in both blood cultures. No evidence of endocarditis on CARLY with right upper arm cellulitis. Repeat blood culture has been negative. Currently on Vancomycin 1g IVPB Q12H day 14 / 14 from first negative blood culture. Midline in place. Please note: RN witnessed patient falling out of bed on his L side. Patient st ates he was attempting to get up to go to the bathroom. Patient is now resting comfortably in bed and has no complaints. Please see fall note for details. Patient is currently 1:1 due to Patient safety. Per Dr. Pavon (Psychiatry) 1:1 still necessary for Patient's safety. Will continue to follow recommendations. Plan: Staph Aureus Bacteremia - Blood culture on 11/13: MRSA. Repeat blood culture from 11/14 shows no growth for 5 days. - MRSA of nares negative on repeat - Procal: 0.09 - HIV negative - CARLY: shows no evidence of valve vegetation - As per ID, Discontinued daptomycin - Vancomycin 1g IVPB Q12H day 14/ 14 day course from first negative blood culture - Midline in place Hemorrhagic Stroke - Head MRI 11/01: right temporal and frontal parietal ischemic infarct with hemorrhagic component. - Head and neck CT on 11/02: Critical stenosis origin R ICA. Greater than 75% stenosis origin L ICA. Mod-severe multifocal stenosis R ICA cavernous. No sign of stenosis L cavernous and intracranial ICA. Slight increase in stenosis of R M1 MCA. - Head CT 11/03: No change in large MCA distribution infarct, No evidence of midline shift. - Head CT 11/05: No acute intracranial hemorrhage. Re-demonstration of large chronic R MCA territory infarct - APA workup negative - Lipid panel shows elevated triglycerides - Continue with aspirin, statin, and plavix. - Aspiration, fall, and seizure precautions - HOB at 30 degrees - Neuro checks Q4 - Dr. Agudelo and Dr. Martinez, Neurology and Neurosurgery, consulted for recommendations. Follow recommendations. Hypertension - BP: 158/98 - Continue Lopressor 25 mg daily Hyperlipidemia - Elevated triglycerides on lipid panel - Continue with lipitor 40 mg daily Delirium - At times, was AAOx1 today. - Psychiatry (Dr. Pavon) added: Depakote 500mg PO BID and Thorazine 50mg PO HS, Thorazine 50mg PO BID - Continue with geodon [facility], ambien 10mg PO HS, Seroquel 25mg PO given once overnight. - Continue Ativan PRN - Dr. Galarza, Psychiatry, was consulted for recommendations. Follow recommendations Diabetes Mellitus Type II - Random glucose: 265 - Medium SSI - Accuchecks ACHS Tobacco Abuse - Nicotine patch daily Insomnia - Continue with ambien Hallucinations and delusions: - Will follow up with Psychiatry regarding recommendations for new hallucinations. - Patient currently on scheduled geodon, antipsychotic. - While patient is hallucinating, not currently causing disturbances. Ppx: - GI prophylaxis: pepcid 20 mg Q12 - DVT prophylaxis: SCD Disposition: PT recommended [facility] however due to patient's insurance, there is difficulty with placement at this time regarding antibiotic, daptomycin availability at facility. Patient has been accepted at [facility] but they cannot accomodate due to isolation. Furthermore, Patient is 1:1 at this time. Will follow-up with SW regarding placement once the former issues have been resolve. Patient seen and case discussed in detail with Dr. Esther Quiroga PGY1 <Sam Santana - Last Filed: 11/28/18 14:11> Objective - Vital Signs/Intake and Output Vital Signs (last 24 hours): Temp Pulse Resp BP Pulse Ox 97.3 F L 91 H 20 127/78 97 11/27/18 18:00 11/28/18 08:07 11/27/18 18:00 11/28/18 08:07 11/27/18 18:00 - Medications Medications: Current Medications Acetaminophen (Tylenol 325mg Tab) 650 mg PO Q6H PRN PRN Reason: Pain, moderate (4-7) Last Admin: 11/25/18 08:50 Dose: 650 mg Aspirin (Aspirin Chewable) 81 mg PO DAILY [facility] Last Admin: 11/28/18 09:41 Dose: 81 mg Atorvastatin Calcium (Lipitor) 40 mg PO DIN [facility] Last Admin: 11/27/18 17:22 Dose: 40 mg Chlorpromazine (Thorazine) 50 mg PO BID [facility]; Protocol Last Admin: 11/28/18 09:41 Dose: 50 mg Chlorpromazine (Thorazine) 50 mg PO HS [facility]; Protocol Last Admin: 11/27/18 21:44 Dose: 50 mg Clopidogrel Bisulfate (Plavix) 75 mg PO DAILY [facility] Last Admin: 11/28/18 09:41 Dose: 75 mg Dextrose (Dextrose 50% Inj) 0 ml IV STAT PRN; Protocol PRN Reason: Hypoglycemia Protocol Divalproex Sodium (Depakote Dr(*Bid*)) 500 mg PO BID [facility] Last Admin: 11/28/18 09:42 Dose: 500 mg Famotidine (Pepcid) 20 mg PO Q12 [facility] Last Admin: 11/28/18 09:41 Dose: 20 mg Dextrose (Dextrose 5% In Water 1000 Ml) 1,000 mls @ 0 mls/hr IV .Q0M PRN; Protocol PRN Reason: Hypoglycemia Protocol Vancomycin HCl (Vancomycin 1gm) 1 gm in 250 mls @ 167 mls/hr IVPB Q12H [facility]; Protocol Last Admin: 11/28/18 10:29 Dose: 167 mls/hr Insulin Detemir (Levemir) 10 unit SC HS [facility] Insulin Human Regular (Humulin R) 0 units SC ACHS [facility]; Protocol Last Admin: 11/28/18 11:35 Dose: 3 unit Lorazepam (Ativan) 2 mg IVP Q6H PRN; Protocol PRN Reason: Agitation Last Admin: 11/26/18 23:33 Dose: 2 mg Metoprolol Tartrate (Lopressor) 25 mg PO BRKDIN [facility] Last Admin: 11/28/18 08:07 Dose: 25 mg Nicotine (Nicoderm Cq) 1 patch TD DAILY [facility] Last Admin: 11/28/18 09:41 Dose: 1 patch Vitamin A (Vitamin A & D Oint Ud Foilpak) 1 ea TOP BID [facility] Last Admin: 11/28/18 09:41 Dose: 1 ea Zolpidem Tartrate (Ambien) 10 mg PO HS [facility]; Protocol Last Admin: 11/27/18 21:44 Dose: 10 mg - Labs Labs: 11/28/18 07:00 11/28/18 07:00 PT 12.7 SECONDS (9.4-12.5) H 11/02/18 13:38 INR 1.12 11/02/18 13:38 APTT 39.3 Seconds (26.9-38.3) H 11/02/18 13:38 Attending/Attestation - Attestation I have personally seen and examined this patient.: Yes I have fully participated in the care of the patient.: Yes I have reviewed all pertinent clinical information, including history, physical exam and plan: Yes Notes (Text): 11/28/18 14:10 Patient was seen and examined with medical records coordinator. 53 year old male with past medical history of hypertension, diabetes, and CVA (07/2018) who was initially admitted under psychiatric unit for depression. He was transferred to medical floor for +MRI findings showing subacute to chronic ischemic infarction involving the right frontal, temporal and parietal lobes with accompanying hemorrhagic component. CTA head/neck showed critical stenosis of right ICA, >75% stenosis of left ICA and moderate to severe multifocal stenos is of the cavernous and supraclinoid segments of right ICA. He was initially transferred to ICU for close ICU monitoring. Patient was evaluated by Neurosurgery and felt these MRI finding are chronic, no acute intervention is needed. Patient is on aspirin, plavix and statin. Vascular surgery recommended outpatient follow up. Patient spiked Fever on 11/13/18, blood culture grew MRSA.CARLY was negative for vegetations.Repeat blood cultures were negative, on IV Vancomycin for MRSA bacteremia. Last day is 11/28/18. ID is following. Agitation is better controlled today , currently on 1.1 observation, we will monitor. Continue with fall precaution. Prognosis is guarded.
--- NOTE | 2018-11-27 18:53 | PN ---
DATE: 11/27/2018 SUBJECTIVE: The patient is in bed, in no acute distress, nontoxic. PHYSICAL EXAMINATION: VITAL SIGNS: Temperature is 98, blood pressure is 130/70, respiratory rate is 18, heart rate is 93. HEENT: Unremarkable. NECK: Supple. LUNGS: Decreased breath sounds. HEART: Normal S1 and S2. ABDOMEN: Soft, nontender. LABORATORY DATA: Reveals white count of 7.5, hemoglobin of 11, platelets of 335. BUN of 18, creatinine of 0.8. Urinalysis is noted and toxicology is reviewed. Vancomycin trough level of 18.4. Microbiology reveals the patient has MRSA in the blood. The repeat blood cultures are negative. The review of orders reveals the patient to have vancomycin to be active. ASSESSMENT AND PLAN: A 53-year-old male who was seen earlier today in room 363, bed 1, with sepsis and methicillin-resistant Staphylococcus aureus bacteremia with a right parietal and temporal lobe infarct and hemorrhagic conversion. No evidence of endocarditis on CARLY. The right upper arm cellulitis in a patient who is a diabetic, cerebrovascular accident and hypertension, on day #13 of vancomycin. Vancomycin trough level is noted. Will need at least 14 days to 21 days of vancomycin. We will order sed rate and C-reactive protein and follow closely with you. So far, the repeat cultures are negative. Gage Soto MD
[2018-11-28 07:53] LABS: BASO # 0.05 K/mm3 (0.0-2.0); BASO % 0.5 % (0.0-3.0); EOS # 0.2 (0.0-0.7); EOS % 2.2 % (1.5-5.0); HEMOGLOBIN 11.1 g/dL (14.0-18.0); LYMPH # 2.1 (1.2-3.4); LYMPH % 21.2 % (22.0-35.0); MEAN CELL VOLUME 85.9 fl (80.0-105.0); MEAN CORPUSCULAR HEMOGLOBIN 26.6 pg (25.0-35.0); MEAN PLATELET VOLUME 10.5 fl (7.0-11.0); MONO # 0.7 (0.1-0.6); MONO % 7.3 % (1.0-6.0); RBC 4.17 10^6/uL (3.5-6.1); RED CELL DISTRIBUTION WIDTH 14.6 % (11.5-14.5); WHITE BLOOD COUNT 9.9 10^3/uL (4.5-11.0)
[2018-11-28 08:02] LABS: BLOOD UREA NITROGEN 18 mg/dL (7-21); CALCIUM 9.3 mg/dL (8.4-10.5); GFR NON-AFRICAN AMERICAN > 60
[2018-11-28] MEDS: Insulin Reg-HIGH-Coverage SC SCH (08:07)
[2018-11-28] MEDS: Vitamins A & D Oint UD Foilpak TOP SCH ×2 (09:41→17:17)
[2018-11-28] MEDS: Divalproex 500 mg DR(BID formulation) PO SCH ×2 (09:42→17:14)
[2018-11-28] MEDS: Vancomycin 1gm in NS 250ml 1 GM/250 ML BAG IVPB SCH ×2 (10:29→22:26)
[2018-11-28] MEDS: Insulin Regular 1 UNITS/0.01 ML ML SC SCH ×3 (11:35→22:27)
--- NOTE | 2018-11-28 12:11 | CP.PCM.PN ---
<Uziel Quiroga - Last Filed: 11/28/18 12:07> Subjective - Date & Time of Evaluation Date of Evaluation: 11/28/18 Time of Evaluation: 12:07 - Subjective Subjective: PGY1 Medicine Progress Note for Dr. Santana Patient was seen and evaluated at bedside. Patient is asleep. Patient continues to be 1:1. Unable to obtain ROS because Patient was sleeping at the time of evaluation. Objective - Vital Signs/Intake and Output Vital Signs (last 24 hours): Temp Pulse Resp BP Pulse Ox 97.3 F L 91 H 20 127/78 97 11/27/18 18:00 11/28/18 08:07 11/27/18 18:00 11/28/18 08:07 11/27/18 18:00 - Medications Medications: Current Medications Acetaminophen (Tylenol 325mg Tab) 650 mg PO Q6H PRN PRN Reason: Pain, moderate (4-7) Last Admin: 11/25/18 08:50 Dose: 650 mg Aspirin (Aspirin Chewable) 81 mg PO DAILY [facility] Last Admin: 11/28/18 09:41 Dose: 81 mg Atorvastatin Calcium (Lipitor) 40 mg PO DIN [facility] Last Admin: 11/27/18 17:22 Dose: 40 mg Chlorpromazine (Thorazine) 50 mg PO BID [facility]; Protocol Last Admin: 11/28/18 09:41 Dose: 50 mg Chlorpromazine (Thorazine) 50 mg PO HS [facility]; Protocol Last Admin: 11/27/18 21:44 Dose: 50 mg Clopidogrel Bisulfate (Plavix) 75 mg PO DAILY [facility] Last Admin: 11/28/18 09:41 Dose: 75 mg Dextrose (Dextrose 50% Inj) 0 ml IV STAT PRN; Protocol PRN Reason: Hypoglycemia Protocol Divalproex Sodium (Depakote Dr(*Bid*)) 500 mg PO BID [facility] Last Admin: 11/28/18 09:42 Dose: 500 mg Famotidine (Pepcid) 20 mg PO Q12 [facility] Last Admin: 11/28/18 09:41 Dose: 20 mg Dextrose (Dextrose 5% In Water 1000 Ml) 1,000 mls @ 0 mls/hr IV .Q0M PRN; Protocol PRN Reason: Hypoglycemia Protocol Vancomycin HCl (Vancomycin 1gm) 1 gm in 250 mls @ 167 mls/hr IVPB Q12H [facility]; Protocol Last Admin: 11/28/18 10:29 Dose: 167 mls/hr Insulin Detemir (Levemir) [address] [facility] Insulin Human Regular (Humulin R) 0 units SC [facility]; Protocol Last Admin: 11/28/18 11:35 Dose: 3 unit Lorazepam (Ativan) 2 mg IVP Q6H PRN; Protocol PRN Reason: Agitation Last Admin: 11/26/18 23:33 Dose: 2 mg Metoprolol Tartrate (Lopressor) 25 mg PO BRKDIN [facility] Last Admin: 11/28/18 08:07 Dose: 25 mg Nicotine (Nicoderm Cq) 1 patch TD DAILY [facility] Last Admin: 11/28/18 09:41 Dose: 1 patch Vitamin A (Vitamin A & D Oint Ud Foilpak) 1 ea TOP BID [facility] Last Admin: 11/28/18 09:41 Dose: 1 ea Zolpidem Tartrate (Ambien) 10 mg PO [facility]; Protocol Last Admin: 11/27/18 21:44 Dose: 10 mg - Labs Labs: 11/28/18 07:00 11/28/18 07:00 PT 12.7 SECONDS (9.4-12.5) H 11/02/18 13:38 INR 1.12 11/02/18 13:38 APTT 39.3 Seconds (26.9-38.3) H 11/02/18 13:38 - Additional Findings Additional findings: - Constitutional Appears: Non-toxic, No Acute Distress, Unkempt - Head Exam Head Exam: NORMOCEPHALIC - Eye Exam Eye Exam: EOMI, PERRL - ENT Exam ENT Exam: Mucous Membranes Moist - Respiratory Exam Respiratory Exam: Clear to Ausculation Bilateral, NORMAL BREATHING PATTERN - Cardiovascular Exam Cardiovascular Exam: REGULAR RHYTHM, RRR - GI/Abdominal Exam GI & Abdominal Exam: Soft, Normal Bowel Sounds. absent: Tenderness - Extremities Exam Extremities Exam: positive for LE (L) weakness - Neurological Exam Neurological Exam: Alert, Awake, CN II-XII Intact (grossly). AAOx3 but at times is also AAOx1 - Psychiatric Exam Psychiatric exam: Agitated, Improved Additional comments: - Skin Skin Exam: Dry, Intact Assessment and Plan - Assessment and Plan (Free Text) Assessment: 53 year old male with past medical history of hypertension, diabetes mellitus type II, ischemic stroke (left sided paralysis), hyperlipidemia, and metal strapnal in left eye that was removed presents from Psychiatry Unit with right temporal and frontal pareital ischemic infarct with hemorrhagic component confirmed by MRI. Patient was treated in ICU with residual left sided weakness. Patient had Staph Aureus in both blood cultures. No evidence of endocarditis on CARLY with right upper arm cellulitis. Repeat blood culture has been negative. Currently discontinued: Vancomycin 1g IVPB Q12H day from first negative blood culture. Midline in place. Please note: RN witnessed patient falling out of bed on his L side. Patient s tates he was attempting to get up to go to the bathroom. Patient is now resting comfortably in bed and has no complaints. Please see fall note for details. 1:1 discontinued, as Patient is calm and no longer attempting to throw things and get out of bed without assistance. Plan: Staph Aureus Bacteremia - Blood culture on 11/13: MRSA. Repeat blood culture from 11/14 shows no growth for 5 days. - MRSA of nares negative on repeat - Procal: 0.09 - HIV negative - CARLY: shows no evidence of valve vegetation - Completed 2 weeks antibiotics (dapto vs Vancomycin) - Midline in place Hemorrhagic Stroke - Head MRI 11/01: right temporal and frontal parietal ischemic infarct with hemorrhagic component. - Head and neck CT on 11/02: Critical stenosis origin R ICA. Greater than 75% stenosis origin L ICA. Mod-severe multifocal stenosis R ICA cavernous. No sign of stenosis L cavernous and intracranial ICA. Slight increase in stenosis of R M1 MCA. - Head CT 11/03: No change in large MCA distribution infarct, No evidence of midline shift. - Head CT 11/05: No acute intracranial hemorrhage. Re-demonstration of large chronic R MCA territory infarct - APA workup negative - Lipid panel shows elevated triglycerides - Continue with aspirin, statin, and plavix. - Aspiration, fall, and seizure precautions - HOB at 30 degrees - Neuro checks Q4 - Dr. Agudelo and Dr. Martinez, Neurology and Neurosurgery, consulted for recommendations. Follow recommendations. Hypertension - BP: 158/98 - Continue Lopressor 25 mg daily Hyperlipidemia - Elevated triglycerides on lipid panel - Continue with lipitor 40 mg daily Delirium - At times, was AAOx1 today. - Psychiatry (Dr. Pavon) added: Depakote 500mg PO BID and Thorazine 50mg PO HS, Thorazine 50mg PO BID - Continue with geodon [facility], ambien 10mg PO HS, Seroquel 25mg PO given once overnight. - Continue Ativan PRN - Dr. Galarza, Psychiatry, was consulted for recommendations. Follow recommendations Diabetes Mellitus Type II, uncontrolled - Start: Levemir 10 U HS - Medium SSI - Accuchecks ACHS Tobacco Abuse - Nicotine patch daily Insomnia - Continue with ambien Hallucinations and delusions: - Will follow up with Psychiatry regarding recommendations for new hallucinations. - Patient currently on scheduled geodon, antipsychotic. - While patient is hallucinating, not currently causing disturbances. Ppx: - GI prophylaxis: pepcid 20 mg Q12 - DVT prophylaxis: SCD Disposition: Patient no longer on isolation. Patient is no longer 1:1 and antibiotic course is completed as of 11/29/18 Patient seen and case discussed in detail with Dr. Esther Quiroga PGY1 <Sam Santana - Last Filed: 11/28/18 14:09> Objective - Vital Signs/Intake and Output Vital Signs (last 24 hours): Temp Pulse Resp BP Pulse Ox 97.3 F L 91 H 20 127/78 97 11/27/18 18:00 11/28/18 08:07 11/27/18 18:00 11/28/18 08:07 11/27/18 18:00 - Medications Medications: Current Medications Acetaminophen (Tylenol 325mg Tab) 650 mg PO Q6H PRN PRN Reason: Pain, moderate (4-7) Last Admin: 11/25/18 08:50 Dose: 650 mg Aspirin (Aspirin Chewable) 81 mg PO DAILY [facility] Last Admin: 11/28/18 09:41 Dose: 81 mg Atorvastatin Calcium (Lipitor) 40 mg PO DIN [facility] Last Admin: 11/27/18 17:22 Dose: 40 mg Chlorpromazine (Thorazine) 50 mg PO BID [facility]; Protocol Last Admin: 11/28/18 09:41 Dose: 50 mg Chlorpromazine (Thorazine) 50 mg PO HS [facility]; Protocol Last Admin: 11/27/18 21:44 Dose: 50 mg Clopidogrel Bisulfate (Plavix) 75 mg PO DAILY [facility] Last Admin: 11/28/18 09:41 Dose: 75 mg Dextrose (Dextrose 50% Inj) 0 ml IV STAT PRN; Protocol PRN Reason: Hypoglycemia Protocol Divalproex Sodium (Depakote Dr(*Bid*)) 500 mg PO BID [facility] Last Admin: 11/28/18 09:42 Dose: 500 mg Famotidine (Pepcid) 20 mg PO Q12 [facility] Last Admin: 11/28/18 09:41 Dose: 20 mg Dextrose (Dextrose 5% In Water 1000 Ml) 1,000 mls @ 0 mls/hr IV .Q0M PRN; Protocol PRN Reason: Hypoglycemia Protocol Vancomycin HCl (Vancomycin 1gm) 1 gm in 250 mls @ 167 mls/hr IVPB Q12H [facility]; Protocol Last Admin: 11/28/18 10:29 Dose: 167 mls/hr Insulin Detemir (Levemir) 10 unit SC HS [facility] Insulin Human Regular (Humulin R) 0 units SC A[facility]S [facility]; Protocol Last Admin: 11/28/18 11:35 Dose: 3 unit Lorazepam (Ativan) 2 mg IVP Q6H PRN; Protocol PRN Reason: Agitation Last Admin: 11/26/18 23:33 Dose: 2 mg Metoprolol Tartrate (Lopressor) 25 mg PO BRKDIN [facility] Last Admin: 11/28/18 08:07 Dose: 25 mg Nicotine (Nicoderm Cq) 1 patch TD DAILY [facility] Last Admin: 11/28/18 09:41 Dose: 1 patch Vitamin A (Vitamin A & D Oint Ud Foilpak) 1 ea TOP BID [facility] Last Admin: 11/28/18 09:41 Dose: 1 ea Zolpidem Tartrate (Ambien) 10 mg PO HS [facility]; Protocol Last Admin: 11/27/18 21:44 Dose: 10 mg - Labs Labs: 11/28/18 07:00 11/28/18 07:00 PT 12.7 SECONDS (9.4-12.5) H 11/02/18 13:38 INR 1.12 11/02/18 13:38 APTT 39.3 Seconds (26.9-38.3) H 11/02/18 13:38 Attending/Attestation - Attestation I have personally seen and examined this patient.: Yes I have fully participated in the care of the patient.: Yes I have reviewed all pertinent clinical information, including history, physical exam and plan: Yes Notes (Text): 11/28/18 14:07 Patient was seen and examined with nurses medical assistants phlebotomists. 53 year old male with past medical history of hypertension, diabetes, and CVA (07/2018) who was initially admitted under psychiatric unit for depression. He was transferred to medical floor for +MRI findings showing subacute to chronic ischemic infarction involving the right frontal, temporal and parietal lobes with accompanying hemorrhagic component. CTA head/neck showed critical stenosis of right ICA, >75% stenosis of left ICA and moderate to severe multifocal stenosis of the cavernous and supraclinoid segments of right ICA. He was initially transferred to ICU for close ICU monitoring. Patient was evaluated by Neurosurgery and felt these MRI finding are chronic, no acute intervention is needed. Patient is on aspirin, plavix and statin. Vascular surgery recommended outpatient follow up. Psychiatry is following. Patient spiked Fever on 11/13/18, blood culture grew MRSA.CARLY was negative for vegetations.Repeat blood cultures were negative, on IV Vancomycin for MRSA bacteremia. Last day is 11/28/18. ID is following. Agitation is better controlled today, we will discontinue 1.1 and will monitor. Continue with fall precaution. Dispoton to [facility] if off 1.1 for 24 hour. Prognosis is guarded.
--- NOTE | 2018-11-28 14:53 | PN ---
DATE: 11/28/2018 SUBJECTIVE: The patient is in bed in no acute distress, nontoxic. PHYSICAL EXAMINATION: VITAL SIGNS: On exam, temperature is 97, blood pressure is 120/70, respiratory 20 and heart rate of 105. HEENT: Unremarkable. NECK: Supple. LUNGS: Have decreased breath sounds. HEART: Normal S1 and S2. ABDOMEN: Soft. LABORATORY DATA: Laboratory examination reveals a white count of 9, hemoglobin of 11 and platelets of 341. Chemistries reveals a BUN of 18 and creatinine of 0.9. Urinalysis is noted. Vanco trough level of 18.4. HIV is negative. Microbiology is noted. Blood cultures MRSA is positive from the . The repeat cultures are negative. Review of orders reveals the patient to be on vancomycin. ASSESSMENT AND PLAN: This is a 53-year-old man who was seen earlier with sepsis and methicillin-resistant Staphylococcus aureus bacteremia, right parietal and temporal lobe infarct and hemorrhagic , no evidence of endocarditis on transesophageal echocardiography with a right arm cellulitis in a patient who is diabetic had cerebrovascular accident, currently on vancomycin day #14 with an adequate vancomycin trough level. The patient has negative blood cultures from November 14. Today is day #14 of vancomycin. With a sed rate of 20 and C-reactive protein of 9.4. We will follow with you. Gage Soto MD
[2018-11-28] MEDS: Insulin Detemir 100 units/ml Vial (Levemir) SC SCH (22:26)
--- NOTE | 2018-11-28 23:36 | CON ---
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 Dr. Savanah Galarza reconsulted with the patient on 11/26/2018, started Thorazine as well as Depakote. The patient has been on a one-to-one as he has been unpredictable such as his behaviors. But apparently, the behaviors have been a little improved. Per nursing notes, there have been some recent incidences of the patient throwing objects or acute episodes of agitation, though the patient does have periods of confusion, disorientation. The patient's memory is poor, he does not remember me from many of my numerous prior visits, though he is superficially calm and cooperative with me. He is also illogical and somewhat disorganized. He reports that he does not trust the one-to-one that was next to him. He believes that it was a nurse and he thinks that the nurse lied to him and told him that she was a doctor. The patient expresses some relief that this nurse, who is actually the one-to-one, she did not try to inject him with anything. He seems to be paranoid that someone would try to want to do this. Nonetheless, he is oriented to the fact that he is in the hospital, to the month and the year. Focus is poor and inconsistent and the patient is unpredictable. The patient denies any acute physical distress at this time. He denies any suicidal thoughts. He denies any hallucinations, does not appear to be acutely responding to internal stimuli, though has had periods of this on the medical floor as well as on the psychiatric floor. Denies thoughts of wanting to hurt others. He states he wants to hurt the person who told him that she was a doctor when she was "just a nurse." His insight and judgment are poor in this regard and the patient continues to require one-to-one. VITAL SIGNS AND LABS: Were reviewed. RELEVANT PSYCHIATRIC MEDICATIONS: Include Thorazine 50 mg b.i.d. and 50 mg at bedtime, Depakote 500 mg b.i.d., Ambien 10 mg at bedtime, Ativan 2 mg IV every 6 hours p.r.n. 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 As noted in prior notes, the patient had a stroke, which occupied the frontotemporal area, which has been known to affect personality and especially in terms of this condition. RECOMMENDATIONS: We will continue with current medications. Although the patient is paranoid, he has been calmer on the unit and current waxing and waning presentation is likely off due to delirium. Psychiatry will continue to follow up. Next followup will be in 2 days by Michell on 11/30/2018. Ryan Foster MD
[2018-11-29 07:02] LABS: BASO # 0.06 K/mm3 (0.0-2.0); BASO % 0.5 % (0.0-3.0); EOS # 0.3 (0.0-0.7); EOS % 2.9 % (1.5-5.0); HEMOGLOBIN 11.1 g/dL (14.0-18.0); LYMPH # 2.8 (1.2-3.4); LYMPH % 25.8 % (22.0-35.0); MEAN CELL VOLUME 85.7 fl (80.0-105.0); MEAN CORPUSCULAR HEMOGLOBIN 26.8 pg (25.0-35.0); MEAN CORPUSCULAR HGB CONC 31.3 g/dl (31.0-37.0); MEAN PLATELET VOLUME 10.2 fl (7.0-11.0); MONO # 0.7 (0.1-0.6); MONO % 6.8 % (1.0-6.0); RBC 4.14 10^6/uL (3.5-6.1); RED CELL DISTRIBUTION WIDTH 14.5 % (11.5-14.5)
[2018-11-29 08:21] LABS: ALB/GLOB RATIO 1.2 (1.1-1.8); ALBUMIN 3.8 g/dL (3.0-4.8); ALT/SGPT 34 U/L (7-56); AST/SGOT 25 U/L (17-59); BLOOD UREA NITROGEN 13 mg/dL (7-21); CALCIUM 9.2 mg/dL (8.4-10.5); GFR NON-AFRICAN AMERICAN > 60
[2018-11-29] MEDS: Divalproex 500 mg DR(BID formulation) PO SCH ×2 (09:08→18:48)
[2018-11-29] MEDS: Insulin Regular 1 UNITS/0.01 ML ML SC SCH ×4 (09:09→21:57)
[2018-11-29] MEDS: Vancomycin 1gm in NS 250ml 1 GM/250 ML BAG IVPB SCH (09:10)
--- NOTE | 2018-11-29 16:03 | CP.PCM.PN ---
Subjective - Date & Time of Evaluation Date of Evaluation: 11/29/18 Time of Evaluation: 10:55 - Subjective Subjective: Afebrile, comfortable. Objective - Vital Signs/Intake and Output Vital Signs (last 24 hours): Temp Pulse Resp BP Pulse Ox 97 F L 95 H 20 130/87 97 11/29/18 07:58 11/29/18 07:58 11/29/18 07:58 11/29/18 07:58 11/29/18 07:58 - Medications Medications: Current Medications Acetaminophen (Tylenol 325mg Tab) 650 mg PO Q6H PRN PRN Reason: Pain, moderate (4-7) Last Admin: 11/25/18 08:50 Dose: 650 mg Aspirin (Aspirin Chewable) 81 mg PO DAILY [facility] Last Admin: 11/29/18 09:07 Dose: 81 mg Atorvastatin Calcium (Lipitor) 40 mg PO DIN [facility] Last Admin: 11/28/18 17:14 Dose: 40 mg Chlorpromazine (Thorazine) 50 mg PO BID [facility]; Protocol Last Admin: 11/29/18 09:10 Dose: 50 mg Chlorpromazine (Thorazine) 50 mg PO HS [facility]; Protocol Last Admin: 11/28/18 22:25 Dose: 50 mg Clopidogrel Bisulfate (Plavix) 75 mg PO DAILY [facility] Last Admin: 11/28/18 09:41 Dose: 75 mg Dextrose (Dextrose 50% Inj) 0 ml IV STAT PRN; Protocol PRN Reason: Hypoglycemia Protocol Divalproex Sodium (Depakote Dr(*Bid*)) 500 mg PO BID [facility] Last Admin: 11/29/18 09:08 Dose: 500 mg Famotidine (Pepcid) 20 mg PO Q12 [facility] Last Admin: 11/28/18 22:25 Dose: 20 mg Dextrose (Dextrose 5% In Water 1000 Ml) 1,000 mls @ 0 mls/hr IV .Q0M PRN; Protocol PRN Reason: Hypoglycemia Protocol Vancomycin HCl (Vancomycin 1gm) 1 gm in 250 mls @ 167 mls/hr IVPB Q12H [facility]; Protocol Last Admin: 11/29/18 09:10 Dose: 167 mls/hr Insulin Detemir (Levemir) 10 unit SC HS [facility] Last Admin: 11/28/18 22:26 Dose: 10 units Insulin Human Regular (Humulin R) 0 units SC ACHS [facility]; Protocol Last Admin: 11/29/18 09:09 Dose: 1 unit Lorazepam (Ativan) 2 mg IVP Q6H PRN; Protocol PRN Reason: Agitation Last Admin: 11/29/18 09:08 Dose: 2 mg Metoprolol Tartrate (Lopressor) 25 mg PO BRKDIN [facility] Last Admin: 11/29/18 09:10 Dose: 25 mg Nicotine (Nicoderm Cq) 1 patch TD DAILY [facility] Last Admin: 11/29/18 09:10 Dose: 1 patch Zolpidem Tartrate (Ambien) 10 mg PO HS [facility]; Protocol Last Admin: 11/28/18 22:25 Dose: 10 mg - Labs Labs: 11/29/18 06:00 11/29/18 06:00 PT 12.7 SECONDS (9.4-12.5) H 11/02/18 13:38 INR 1.12 11/02/18 13:38 APTT 39.3 Seconds (26.9-38.3) H 11/02/18 13:38 - Constitutional Appears: Chronically Ill - Head Exam Head Exam: NORMAL INSPECTION - Respiratory Exam Respiratory Exam: Decreased Breath Sounds - Cardiovascular Exam Cardiovascular Exam: +S1, +S2 - GI/Abdominal Exam GI & Abdominal Exam: Soft. absent: Tenderness Assessment and Plan - Assessment and Plan (Free Text) Plan: Assessment sepsis due to Methicillin-resistant Staph aureus bacteremia in this patient with right parietal and temporal lobe infarct with hemorrhagic conversion; no evidence of endocarditis on CARLY done today in this patient with right upper arm cellulitis CVA DM HTN dyslipidemia depression significant smoking Plan on IV Vancomycin to complete therapy - day 15 from first negative blood cx; repeat blood cx are negative; reviewed CARLY results done by Dr. Godinez will need at least 2 weeks of antibiotics from the first negative blood cx - good Vanco trough levels can d/c antibiotics
--- NOTE | 2018-11-29 17:03 | CP.PCM.PN ---
<Karoline Zambrano - Last Filed: 11/29/18 17:00> Subjective - Date & Time of Evaluation Date of Evaluation: 11/29/18 Time of Evaluation: 17:00 - Subjective Subjective: Karoline Zambrano, PGY-1, Internal Medicine Progress Note for Dr. Padilla Patient seen and evaluated at bedside. Patient had no acute overnight events. Patient has been off 1:1 for 24 hours. Patient is AAOx3, reports left sided weakness, and denies any other symptoms including headache, fever, chest pain, heart palpitations, shortness of breath, nausea, vomiting, constipation, diarrhea, dysuria, hematuria. 12-point ROS was unreliable due to patient's mental status. Objective - Vital Signs/Intake and Output Vital Signs (last 24 hours): Temp Pulse Resp BP Pulse Ox 97 F L 95 H 20 130/87 97 11/29/18 07:58 11/29/18 07:58 11/29/18 07:58 11/29/18 07:58 11/29/18 07:58 Intake and Output: 11/29/18 11/29/18 06:59 18:59 Intake Total 240 Output Total 0 Balance 240 - Medications Medications: Current Medications Acetaminophen (Tylenol 325mg Tab) 650 mg PO Q6H PRN PRN Reason: Pain, moderate (4-7) Last Admin: 11/25/18 08:50 Dose: 650 mg Aspirin (Aspirin Chewable) 81 mg PO DAILY [facility] Last Admin: 11/29/18 09:07 Dose: 81 mg Atorvastatin Calcium (Lipitor) 40 mg PO DIN [facility] Last Admin: 11/28/18 17:14 Dose: 40 mg Chlorpromazine (Thorazine) 50 mg PO BID [facility]; Protocol Last Admin: 11/29/18 09:10 Dose: 50 mg Chlorpromazine (Thorazine) 50 mg PO HS [facility]; Protocol Last Admin: 11/28/18 22:25 Dose: 50 mg Clopidogrel Bisulfate (Plavix) 75 mg PO DAILY [facility] Last Admin: 11/28/18 09:41 Dose: 75 mg Dextrose (Dextrose 50% Inj) 0 ml IV STAT PRN; Protocol PRN Reason: Hypoglycemia Protocol Divalproex Sodium (Depakote Dr(*Bid*)) 500 mg PO BID [facility] Last Admin: 11/29/18 09:08 Dose: 500 mg Famotidine (Pepcid) 20 mg PO Q12 [facility] Last Admin: 11/28/18 22:25 Dose: 20 mg Dextrose (Dextrose 5% In Water 1000 Ml) 1,000 mls @ 0 mls/hr IV .Q0M PRN; Protocol PRN Reason: Hypoglycemia Protocol Vancomycin HCl (Vancomycin 1gm) 1 gm in 250 mls @ 167 mls/hr IVPB Q12H [facility]; Protocol Last Admin: 11/29/18 09:10 Dose: 167 mls/hr Insulin Detemir (Levemir) 10 unit SC [facility] Last Admin: 11/28/18 22:26 Dose: 10 units Insulin Human Regular (Humulin R) 0 units SC [facility]; Protocol Last Admin: 11/29/18 09:09 Dose: 1 unit Lorazepam (Ativan) 2 mg IVP Q6H PRN; Protocol PRN Reason: Agitation Last Admin: 11/29/18 09:08 Dose: 2 mg Metoprolol Tartrate (Lopressor) 25 mg PO BRKDIN [facility] Last Admin: 11/29/18 09:10 Dose: 25 mg Nicotine (Nicoderm Cq) 1 patch TD DAILY [facility] Last Admin: 11/29/18 09:10 Dose: 1 patch Zolpidem Tartrate (Ambien) 10 mg PO HS [facility]; Protocol Last Admin: 11/28/18 22:25 Dose: 10 mg - Labs Labs: 11/29/18 06:00 11/29/18 06:00 PT 12.7 SECONDS (9.4-12.5) H 11/02/18 13:38 INR 1.12 11/02/18 13:38 APTT 39.3 Seconds (26.9-38.3) H 11/02/18 13:38 - Constitutional Appears: Well, Non-toxic, No Acute Distress - Head Exam Head Exam: ATRAUMATIC, NORMAL INSPECTION, NORMOCEPHALIC - Eye Exam Eye Exam: EOMI, PERRL - Respiratory Exam Respiratory Exam: Clear to Ausculation Bilateral, NORMAL BREATHING PATTERN - Cardiovascular Exam Cardiovascular Exam: REGULAR RHYTHM, RRR - GI/Abdominal Exam GI & Abdominal Exam: Soft, Normal Bowel Sounds. absent: Tenderness - Extremities Exam Additional comments: contracted left upper extremity. left lower extremity weakness with +3/5 - Neurological Exam Neurological Exam: Alert, Awake, CN II-XII Intact, Oriented x3 (but confused) - Skin Skin Exam: Dry, Intact Assessment and Plan - Assessment and Plan (Free Text) Assessment: 53 year old male with past medical history of hypertension, diabetes mellitus type II, ischemic stroke (left sided paralysis), hyperlipidemia, and metal strapnal in left eye that was removed presents with right temporal and frontal pareital ischemic infarct with hemorrhagic component confirmed by MRI. Patient was treated in ICU with residual left sided weakness. Patient had Staph Aureus in both blood cultures. No evidence of endocarditis on CARLY with right upper arm cellulitis. Repeat blood culture has been negative. As per ID, patient has finished 2 weeks of antibiotics for MRSA bacteremia. Midline in place. Plan: Staph Aureus Bacteremia -Blood culture on 11/13: MRSA. Repeat blood culture from 11/14 shows no growth for 5 days. -Procal: 0.09 -HIV negative -CARLY: shows no evidence of valve vegetation -As per ID, patient has finished 2 weeks of antibiotics. No antibiotics needed upon discharge to [facility] -Midline in place Hemorrhagic Stroke -Head MRI 11/01: right temporal and frontal parietal ischemic infarct with hemorrhagic component. -Head and neck CT on 11/02: Critical stenosis origin R ICA. Greater than 75% stenosis origin L ICA. Mod-severe multifocal stenosis R ICA cavernous. No sign of stenosis L cavernous and intracranial ICA. Slight increase in stenosis of R M 1 MCA. -Head CT 11/03: No change in large MCA distribution infarct, No evidence of midline shift. -Head CT 11/05: No acute intracranial hemorrhage. Re-demonstration of large chronic R MCA territory infarct -APA workup negative -Lipid panel shows elevated triglycerides -Continue with aspirin, statin, and plavix. -Aspiration, fall, and seizure precautions -HOB at 30 degrees -Neuro checks Q4 History of seizures -Continue with depakote Hypertension -Continue Lopressor 25 mg daily Hyperlipidemia -Elevated triglycerides on lipid panel -Continue with lipitor 40 mg daily Delirium-improving -At times, was AAOx3 today. -Continue with thorazine. -Dr. Galarza, Psychiatry, was consulted for recommendations. Follow recommendations Diabetes Mellitus Type II -Medium SSI -Accuchecks ACHS Tobacco Abuse -Nicotine patch daily Insomnia -Continue with ambien GI prophylaxis: pepcid 20 mg Q12 DVT prophylaxis: SCD Disposition: [facility] had bed for patient in the past. Will follow up with social work regarding availability of bed Patient plan discussed with attending. <Naimiguel aJonn - Last Filed: 11/30/18 13:43> Objective - Vital Signs/Intake and Output Vital Signs (last 24 hours): Temp Pulse Resp BP Pulse Ox 97.2 F L 97 H 20 160/92 H 95 11/30/18 08:31 11/30/18 09:45 11/30/18 08:31 11/30/18 09:45 11/30/18 08:31 Intake and Output: 11/30/18 11/30/18 06:59 18:59 Intake Total 560 Output Total 0 Balance 560 0 - Medications Medications: Current Medications Acetaminophen (Tylenol 325mg Tab) 650 mg PO Q6H PRN PRN Reason: Pain, moderate (4-7) Last Admin: 11/25/18 08:50 Dose: 650 mg Aspirin (Aspirin Chewable) 81 mg PO DAILY [facility] Last Admin: 11/30/18 09:46 Dose: 81 mg Atorvastatin Calcium (Lipitor) 40 mg PO DIN [facility] Last Admin: 11/29/18 18:48 Dose: 40 mg Chlorpromazine (Thorazine) 50 mg PO BID [facility]; Protocol Last Admin: 11/30/18 09:46 Dose: 50 mg Chlorpromazine (Thorazine) 50 mg PO HS [facility]; Protocol Last Admin: 11/29/18 22:01 Dose: 50 mg Clopidogrel Bisulfate (Plavix) 75 mg PO DAILY [facility] Last Admin: 11/30/18 09:46 Dose: 75 mg Dextrose (Dextrose 50% Inj) 0 ml IV STAT PRN; Protocol PRN Reason: Hypoglycemia Protocol Divalproex Sodium (Depakote Dr(*Bid*)) 500 mg PO BID [facility] Last Admin: 11/30/18 09:46 Dose: 500 mg Famotidine (Pepcid) 20 mg PO Q12 [facility] Last Admin: 11/30/18 09:46 Dose: 20 mg Dextrose (Dextrose 5% In Water 1000 Ml) 1,000 mls @ 0 mls/hr IV .Q0M PRN; Protocol PRN Reason: Hypoglycemia Protocol Insulin Detemir (Levemir) 10 unit SC HS [facility] Last Admin: 11/29/18 21:58 Dose: 10 units Insulin Human Regular (Humulin R) 0 units SC ACHS [facility]; Protocol Last Admin: 11/30/18 12:49 Dose: 3 unit Lorazepam (Ativan) 2 mg IVP Q6H PRN; Protocol PRN Reason: Agitation Last Admin: 11/29/18 20:30 Dose: 2 mg Metoprolol Tartrate (Lopressor) 25 mg PO BRKDIN [facility] Last Admin: 11/30/18 09:45 Dose: 25 mg Nicotine (Nicoderm Cq) 1 patch TD DAILY [facility] Last Admin: 11/30/18 09:50 Dose: 1 patch Zolpidem Tartrate (Ambien) 10 mg PO HS [facility]; Protocol Last Admin: 11/29/18 21:52 Dose: 10 mg - Labs Labs: 11/30/18 06:00 11/30/18 06:00 PT 12.7 SECONDS (9.4-12.5) H 11/02/18 13:38 INR 1.12 11/02/18 13:38 APTT 39.3 Seconds (26.9-38.3) H 11/02/18 13:38 Attending/Attestation - Attestation I have personally seen and examined this patient.: Yes I have fully participated in the care of the patient.: Yes I have reviewed all pertinent clinical information, including history, physical exam and plan: Yes Notes (Text): 53 year old male with past medical history of hypertension, diabetes, and CVA (07/2018) who was initially admitted under psychiatric unit for depression. He was transferred to medical floor for +MRI findings showing subacute to chronic ischemic infarction involving the right frontal, temporal and parietal lobes with accompanying hemorrhagic component. CTA head/neck showed critical stenosis of right ICA, >75% stenosis of left ICA and moderate to severe multifocal stenosis of the cavernous and supraclinoid segments of right ICA. He was initially transferred to ICU for close ICU monitoring. Patient was evaluated by Neurosurgery and felt these MRI finding are chronic, no acute intervention is needed. Patient is on aspirin, plavix and statin. Vascular surgery recommended outpatient follow up. Psychiatry is following. Pt spiked temp on 11/13, set of blood culture grew Staph aureus. Pt completed abx course on 11/28 as per ID. CARLY was negative. Pt has remained off 1:1. Pt can be discharged once placement has been arranged by case management.
[2018-11-29] MEDS: Insulin Detemir 100 units/ml Vial (Levemir) SC SCH (21:58)
[2018-11-30 06:46] LABS: BASO # 0.05 K/mm3 (0.0-2.0); BASO % 0.6 % (0.0-3.0); EOS # 0.3 (0.0-0.7); EOS % 3.4 % (1.5-5.0); HEMOGLOBIN 10.6 g/dL (14.0-18.0); LYMPH # 1.9 (1.2-3.4); LYMPH % 22.4 % (22.0-35.0); MEAN CORPUSCULAR HEMOGLOBIN 26.5 pg (25.0-35.0); MEAN CORPUSCULAR HGB CONC 30.8 g/dl (31.0-37.0); MEAN PLATELET VOLUME 10.7 fl (7.0-11.0); MONO # 0.8 (0.1-0.6); RED CELL DISTRIBUTION WIDTH 14.5 % (11.5-14.5); WHITE BLOOD COUNT 8.4 10^3/uL (4.5-11.0)
[2018-11-30 07:01] LABS: ALB/GLOB RATIO 1.2 (1.1-1.8); ALBUMIN 3.8 g/dL (3.0-4.8); ALT/SGPT 31 U/L (7-56); AST/SGOT 28 U/L (17-59); BLOOD UREA NITROGEN 15 mg/dL (7-21); CALCIUM 9.3 mg/dL (8.4-10.5); GFR NON-AFRICAN AMERICAN > 60
[2018-11-30] MEDS: Divalproex 500 mg DR(BID formulation) PO SCH ×2 (09:46→17:36)
[2018-11-30] MEDS: Insulin Regular 1 UNITS/0.01 ML ML SC SCH ×4 (09:47→22:14)
--- NOTE | 2018-11-30 14:56 | CP.PCM.PN ---
<Karoline Zambrano - Last Filed: 11/30/18 14:48> Subjective - Date & Time of Evaluation Date of Evaluation: 11/30/18 Time of Evaluation: 14:48 - Subjective Subjective: Karoline Zambrano, PGY-1, Internal medicine progress note for Dr. Padilla Patient was seen and evaluated at bedside. Patient was somnolent this morning after he was reported to be awake all night. Patient denied any current symptoms. 12-point ROS was unreliable due to patient's somnolent and mental status today. Objective - Vital Signs/Intake and Output Vital Signs (last 24 hours): Temp Pulse Resp BP Pulse Ox 97.2 F L 97 H 20 160/92 H 95 11/30/18 08:31 11/30/18 09:45 11/30/18 08:31 11/30/18 09:45 11/30/18 08:31 Intake and Output: 11/30/18 11/30/18 06:59 18:59 Intake Total 560 Output Total 0 Balance 560 0 - Medications Medications: Current Medications Acetaminophen (Tylenol 325mg Tab) 650 mg PO Q6H PRN PRN Reason: Pain, moderate (4-7) Last Admin: 11/25/18 08:50 Dose: 650 mg Aspirin (Aspirin Chewable) 81 mg PO DAILY [facility] Last Admin: 11/30/18 09:46 Dose: 81 mg Atorvastatin Calcium (Lipitor) 40 mg PO DIN [facility] Last Admin: 11/29/18 18:48 Dose: 40 mg Chlorpromazine (Thorazine) 50 mg PO BID [facility]; Protocol Last Admin: 11/30/18 09:46 Dose: 50 mg Chlorpromazine (Thorazine) 50 mg PO HS [facility]; Protocol Last Admin: 11/29/18 22:01 Dose: 50 mg Clopidogrel Bisulfate (Plavix) 75 mg PO DAILY [facility] Last Admin: 11/30/18 09:46 Dose: 75 mg Dextrose (Dextrose 50% Inj) 0 ml IV STAT PRN; Protocol PRN Reason: Hypoglycemia Protocol Divalproex Sodium (Depakote Dr(*Bid*)) 500 mg PO BID [facility] Last Admin: 11/30/18 09:46 Dose: 500 mg Famotidine (Pepcid) 20 mg PO Q12 [facility] Last Admin: 11/30/18 09:46 Dose: 20 mg Dextrose (Dextrose 5% In Water 1000 Ml) 1,000 mls @ 0 mls/hr IV .Q0M PRN; Protocol PRN Reason: Hypoglycemia Protocol Insulin Detemir (Levemir) 10 unit SC HS [facility] Last Admin: 11/29/18 21:58 Dose: 10 units Insulin Human Regular (Humulin R) 0 units SC ACHS [facility]; Protocol Last Admin: 11/30/18 12:49 Dose: 3 unit Lorazepam (Ativan) 2 mg IVP Q6H PRN; Protocol PRN Reason: Agitation Last Admin: 11/29/18 20:30 Dose: 2 mg Metoprolol Tartrate (Lopressor) 25 mg PO BRKDIN [facility] Last Admin: 11/30/18 09:45 Dose: 25 mg Nicotine (Nicoderm Cq) 1 patch TD DAILY [facility] Last Admin: 11/30/18 09:50 Dose: 1 patch Zolpidem Tartrate (Ambien) 10 mg PO HS [facility]; Protocol Last Admin: 11/29/18 21:52 Dose: 10 mg - Labs Labs: 11/30/18 06:00 11/30/18 06:00 PT 12.7 SECONDS (9.4-12.5) H 11/02/18 13:38 INR 1.12 11/02/18 13:38 APTT 39.3 Seconds (26.9-38.3) H 11/02/18 13:38 - Constitutional Appears: Well, Non-toxic, No Acute Distress - Head Exam Head Exam: ATRAUMATIC, NORMAL INSPECTION, NORMOCEPHALIC - Eye Exam Eye Exam: EOMI, PERRL - ENT Exam ENT Exam: Mucous Membranes Moist - Respiratory Exam Respiratory Exam: Clear to Ausculation Bilateral, NORMAL BREATHING PATTERN - Cardiovascular Exam Cardiovascular Exam: REGULAR RHYTHM, RRR - GI/Abdominal Exam GI & Abdominal Exam: Soft, Normal Bowel Sounds. absent: Tenderness - Extremities Exam Additional comments: left upper extremity is contracted and left lower extremity has strength of +3/5 - Neurological Exam Neurological Exam: Alert, Awake, CN II-XII Intact, Oriented x3 (but confused) Assessment and Plan - Assessment and Plan (Free Text) Assessment: 53 year old male with past medical history of hypertension, diabetes mellitus type II, ischemic stroke (left sided paralysis), hyperlipidemia, and metal strapnal in left eye that was removed presents with right temporal and frontal parietal ischemic infarct with hemorrhagic component confirmed by MRI. Patient was treated in ICU with residual left sided weakness. Patient had Staph Aureus in blood culture. No evidence of endocarditis on CARLY with right upper arm cellulitis. Repeat blood culture has been negative. As per ID, patient has finished 2 weeks of antibiotics for MRSA bacteremia. Midline in place. Plan: Staph Aureus Bacteremia -Blood culture on 11/13: MRSA. Repeat blood culture from 11/14 shows no growth for 5 days. -Procal: 0.09 -HIV negative -CARLY showed no evidence of valve vegetation on this admission -As per ID, patient has finished 2 weeks of antibiotics. No antibiotics needed upon discharge to [facility] Hemorrhagic Stroke -Head MRI 11/01: right temporal and frontal parietal ischemic infarct with hemorrhagic component. -Head and neck CT on 11/02: Critical stenosis origin R ICA. Greater than 75% stenosis origin L ICA. Mod-severe multifocal stenosis R ICA cavernous. No sign of stenosis L cavernous and intracranial ICA. Slight increase in stenosis of R M1 MCA. -Head CT 11/03: No change in large MCA distribution infarct, No evidence of midline shift. -Head CT 11/05: No acute intracranial hemorrhage. Re-demonstration of large chronic R MCA territory infarct -APA workup negative -Continue with aspirin, statin, and plavix. -Aspiration, fall, and seizure precautions -HOB at 30 degrees -Neuro checks Q4 History of seizures -Continue with depakote Hypertension -Continue Lopressor 25 mg daily Hyperlipidemia -Elevated triglycerides on lipid panel -Continue with lipitor 40 mg daily Delirium -Patient was somnolent today -Continue with thorazine. Diabetes Mellitus Type II -SSI and levemir 10 U HS -Accuchecks ACHS Tobacco Abuse -Nicotine patch daily Insomnia -Continue with ambien GI prophylaxis: pepcid 20 mg Q12 DVT prophylaxis: SCD Disposition: Patient is medically clear for discharge. However, case management and social work are trying to find new subacute rehabilitation for patient at this time. Patient plan discussed with attending. <Jonn Padilla - Last Filed: 11/30/18 15:40> Objective - Vital Signs/Intake and Output Vital Signs (last 24 hours): Temp Pulse Resp BP Pulse Ox 97.2 F L 97 H 20 160/92 H 95 11/30/18 08:31 11/30/18 09:45 11/30/18 08:31 11/30/18 09:45 11/30/18 08:31 Intake and Output: 11/30/18 11/30/18 06:59 18:59 Intake Total 560 Output Total 0 Balance 560 0 - Medications Medications: Current Medications Acetaminophen (Tylenol 325mg Tab) 650 mg PO Q6H PRN PRN Reason: Pain, moderate (4-7) Last Admin: 11/25/18 08:50 Dose: 650 mg Aspirin (Aspirin Chewable) 81 mg PO DAILY [facility] Last Admin: 11/30/18 09:46 Dose: 81 mg Atorvastatin Calcium (Lipitor) 40 mg PO DIN [facility] Last Admin: 11/29/18 18:48 Dose: 40 mg Chlorpromazine (Thorazine) 50 mg PO BID [facility]; Protocol Last Admin: 11/30/18 09:46 Dose: 50 mg Chlorpromazine (Thorazine) 50 mg PO HS [facility]; Protocol Last Admin: 11/29/18 22:01 Dose: 50 mg Clopidogrel Bisulfate (Plavix) 75 mg PO DAILY [facility] Last Admin: 11/30/18 09:46 Dose: 75 mg Dextrose (Dextrose 50% Inj) 0 ml IV STAT PRN; Protocol PRN Reason: Hypoglycemia Protocol Divalproex Sodium (Depakote Dr(*Bid*)) 500 mg PO BID [facility] Last Admin: 11/30/18 09:46 Dose: 500 mg Famotidine (Pepcid) 20 mg PO Q12 [facility] Last Admin: 11/30/18 09:46 Dose: 20 mg Dextrose (Dextrose 5% In Water 1000 Ml) 1,000 mls @ 0 mls/hr IV .Q0M PRN; Protocol PRN Reason: Hypoglycemia Protocol Insulin Detemir (Levemir) 10 unit SC HS [facility] Last Admin: 11/29/18 21:58 Dose: 10 units Insulin Human Regular (Humulin R) 0 units SC ACHS [facility]; Protocol Last Admin: 11/30/18 12:49 Dose: 3 unit Lorazepam (Ativan) 2 mg IVP Q6H PRN; Protocol PRN Reason: Agitation Last Admin: 11/29/18 20:30 Dose: 2 mg Metoprolol Tartrate (Lopressor) 25 mg PO BRKDIN [facility] Last Admin: 11/30/18 09:45 Dose: 25 mg Nicotine (Nicoderm Cq) 1 patch TD DAILY [facility] Last Admin: 11/30/18 09:50 Dose: 1 patch Zolpidem Tartrate (Ambien) 10 mg PO HS [facility]; Protocol Last Admin: 11/29/18 21:52 Dose: 10 mg - Labs Labs: 11/30/18 06:00 11/30/18 06:00 PT 12.7 SECONDS (9.4-12.5) H 11/02/18 13:38 INR 1.12 11/02/18 13:38 APTT 39.3 Seconds (26.9-38.3) H 11/02/18 13:38 Attending/Attestation - Attestation I have personally seen and examined this patient.: Yes I have fully participated in the care of the patient.: Yes I have reviewed all pertinent clinical information, including history, physical exam and plan: Yes Notes (Text): 53 year old male with past medical history of hypertension, diabetes, and CVA (07/2018) who was initially admitted under psychiatric unit for depression. He was transferred to medical floor for +MRI findings showing subacute to chronic ischemic infarction involving the right frontal, temporal and parietal lobes with accompanying hemorrhagic component. CTA head/neck showed critical stenosis of right ICA, >75% stenosis of left ICA and moderate to severe multifocal stenosis of the cavernous and supraclinoid segments of right ICA. He was initially transferred to ICU for close ICU monitoring. Patient was evaluated by Neurosurgery and felt these MRI finding are chronic, no acute intervention is n eeded. Patient is on aspirin, plavix and statin. Vascular surgery recommended outpatient follow up. Psychiatry is following. Pt spiked temp on 11/13, set of blood culture grew Staph aureus. Pt completed abx course on 11/28 as per ID. CARLY was negative. Pt has remained off 1:1. Awaiting placement. Medically cleared for DC
--- NOTE | 2018-11-30 15:00 | CP.PCM.PN ---
Subjective - Date & Time of Evaluation Date of Evaluation: 11/30/18 Time of Evaluation: 11:10 - Subjective Subjective: No fevers, sleeping in bed, not in distress. Objective - Vital Signs/Intake and Output Vital Signs (last 24 hours): Temp Pulse Resp BP Pulse Ox 97.2 F L 97 H 20 160/92 H 95 11/30/18 08:31 11/30/18 09:45 11/30/18 08:31 11/30/18 09:45 11/30/18 08:31 Intake and Output: 11/30/18 11/30/18 06:59 18:59 Intake Total 560 Output Total 0 Balance 560 0 - Medications Medications: Current Medications Acetaminophen (Tylenol 325mg Tab) 650 mg PO Q6H PRN PRN Reason: Pain, moderate (4-7) Last Admin: 11/25/18 08:50 Dose: 650 mg Aspirin (Aspirin Chewable) 81 mg PO DAILY [facility] Last Admin: 11/30/18 09:46 Dose: 81 mg Atorvastatin Calcium (Lipitor) 40 mg PO DIN [facility] Last Admin: 11/29/18 18:48 Dose: 40 mg Chlorpromazine (Thorazine) 50 mg PO BID [facility]; Protocol Last Admin: 11/30/18 09:46 Dose: 50 mg Chlorpromazine (Thorazine) 50 mg PO HS [facility]; Protocol Last Admin: 11/29/18 22:01 Dose: 50 mg Clopidogrel Bisulfate (Plavix) 75 mg PO DAILY [facility] Last Admin: 11/30/18 09:46 Dose: 75 mg Dextrose (Dextrose 50% Inj) 0 ml IV STAT PRN; Protocol PRN Reason: Hypoglycemia Protocol Divalproex Sodium (Depakote Dr(*Bid*)) 500 mg PO BID [facility] Last Admin: 11/30/18 09:46 Dose: 500 mg Famotidine (Pepcid) 20 mg PO Q12 [facility] Last Admin: 11/30/18 09:46 Dose: 20 mg Dextrose (Dextrose 5% In Water 1000 Ml) 1,000 mls @ 0 mls/hr IV .Q0M PRN; Protocol PRN Reason: Hypoglycemia Protocol Insulin Detemir (Levemir) 10 unit SC HS [facility] Last Admin: 11/29/18 21:58 Dose: 10 units Insulin Human Regular (Humulin R) 0 units SC ACHS [facility]; Protocol Last Admin: 11/30/18 12:49 Dose: 3 unit Lorazepam (Ativan) 2 mg IVP Q6H PRN; Protocol PRN Reason: Agitation Last Admin: 11/29/18 20:30 Dose: 2 mg Metoprolol Tartrate (Lopressor) 25 mg PO BRKDIN [facility] Last Admin: 11/30/18 09:45 Dose: 25 mg Nicotine (Nicoderm Cq) 1 patch TD DAILY [facility] Last Admin: 11/30/18 09:50 Dose: 1 patch Zolpidem Tartrate (Ambien) 10 mg PO HS [facility]; Protocol Last Admin: 11/29/18 21:52 Dose: 10 mg - Labs Labs: 11/30/18 06:00 11/30/18 06:00 PT 12.7 SECONDS (9.4-12.5) H 11/02/18 13:38 INR 1.12 11/02/18 13:38 APTT 39.3 Seconds (26.9-38.3) H 11/02/18 13:38 - Constitutional Appears: Chronically Ill - Head Exam Head Exam: NORMAL INSPECTION - Respiratory Exam Respiratory Exam: Decreased Breath Sounds - Cardiovascular Exam Cardiovascular Exam: +S1, +S2 - GI/Abdominal Exam GI & Abdominal Exam: Soft. absent: Tenderness Assessment and Plan - Assessment and Plan (Free Text) Plan: Assessment sepsis due to Methicillin-resistant Staph aureus bacteremia in this patient with right parietal and temporal lobe infarct with hemorrhagic conversion; no evidence of endocarditis on CARLY done in this patient with right upper arm cellulitis CVA DM HTN dyslipidemia depression significant smoking Plan completed course of IV Vancomycin - continue to monitor off antibiotics since he is at risk for nosocomial infections
[2018-11-30] MEDS: Insulin Detemir 100 units/ml Vial (Levemir) SC SCH (21:35)
--- NOTE | 2018-11-30 21:38 | PN ---
DATE: 11/30/2018 FOLLOWUP NOTE SUBJECTIVE: The patient was seen today. The patient is deeply sleeping. As per collateral information from the nursing staff, the patient did not present to be agitated or aggressive, took his medication. The patient has transient episodes of hopelessness and being difficult but for past 12 hours, the patient presented well. In regards of the medical issues, the patient has sepsis due to methicillin-resistant Staphylococcus aureus bacteremia. The patient has right parietal and temporal lobe infarct with hemorrhagic conversion. The patient also has history of CVA, diabetes, hypertension, dyslipidemia. The patient has completed course of antibiotics. At present moment, the patient is waiting for rehab placement. PHYSICAL EXAMINATION: VITAL SIGNS: In regards of the vital signs, vital signs seem to be stable. Temperature 97.2, pulse is 97, blood pressure 160/92, respiration 20, oxygen saturation is 95%. MEDICATIONS: Reviewed. The patient is on Tylenol, Lipitor, Thorazine 50 mg twice a day and at the nighttime. The patient is on Plavix. The patient is on dextrose, Depakote 500 mg twice a day for mood stabilization, Pepcid, Levemir, Humulin, Ativan, Lopressor, NicoDerm, and Ambien. LABORATORY DATA: Labs were reviewed. MENTAL STATUS EXAMINATION: The patient was deeply sleeping and was not able to participate in interview. IMPRESSION: The patient is in delirium stage. The patient also has mood disorder due to general medical condition. PLAN: For now, we will continue Depakote. We will continue Thorazine. We will continue Ambien. We will check Depakote level tomorrow. Meanwhile, there is no acute issue going on from the psychiatric standpoint. We will follow up every other day. Thank you very much for letting me to participate in care of your patient. Savanah Galarza MD
[2018-12-01 00:16] VITALS: O2SAT 98
[2018-12-01 06:43] LABS: BASO # 0.03 K/mm3 (0.0-2.0); BASO % 0.4 % (0.0-3.0); EOS # 0.4 (0.0-0.7); EOS % 5.5 % (1.5-5.0); HEMOGLOBIN 11.1 g/dL (14.0-18.0); LYMPH # 2.3 (1.2-3.4); LYMPH % 32.2 % (22.0-35.0); MEAN CELL VOLUME 86.5 fl (80.0-105.0); MEAN CORPUSCULAR HEMOGLOBIN 26.4 pg (25.0-35.0); MEAN CORPUSCULAR HGB CONC 30.5 g/dl (31.0-37.0); MEAN PLATELET VOLUME 10.7 fl (7.0-11.0); MONO # 0.8 (0.1-0.6); MONO % 10.9 % (1.0-6.0); RBC 4.21 10^6/uL (3.5-6.1); RED CELL DISTRIBUTION WIDTH 14.4 % (11.5-14.5); WHITE BLOOD COUNT 7.1 10^3/uL (4.5-11.0)
[2018-12-01 07:22] LABS: ALB/GLOB RATIO 1.1 (1.1-1.8); ALBUMIN 3.8 g/dL (3.0-4.8); ALT/SGPT 25 U/L (7-56); AST/SGOT 23 U/L (17-59); BLOOD UREA NITROGEN 19 mg/dL (7-21); CALCIUM 9.4 mg/dL (8.4-10.5); GFR NON-AFRICAN AMERICAN > 60
[2018-12-01] MEDS: Divalproex 500 mg DR(BID formulation) PO SCH ×2 (10:38→17:31)
[2018-12-01] MEDS: Insulin Regular 1 UNITS/0.01 ML ML SC SCH ×4 (10:39→21:37)
--- NOTE | 2018-12-01 14:14 | CP.PCM.PN ---
Subjective - Date & Time of Evaluation Date of Evaluation: 12/01/18 Time of Evaluation: 08:40 - Subjective Subjective: Afebrile, not in distress. Objective - Vital Signs/Intake and Output Vital Signs (last 24 hours): Temp Pulse Resp BP Pulse Ox 97.8 F 84 18 134/89 98 12/01/18 06:00 12/01/18 07:39 12/01/18 06:00 12/01/18 07:39 12/01/18 06:00 Intake and Output: 12/01/18 12/01/18 06:59 18:59 Output Total 0 Balance 0 - Medications Medications: Current Medications Acetaminophen (Tylenol 325mg Tab) 650 mg PO Q6H PRN PRN Reason: Pain, moderate (4-7) Last Admin: 11/30/18 21:39 Dose: 650 mg Aspirin (Aspirin Chewable) 81 mg PO DAILY [facility] Last Admin: 12/01/18 10:38 Dose: 81 mg Atorvastatin Calcium (Lipitor) 40 mg PO DIN [facility] Last Admin: 11/30/18 17:36 Dose: 40 mg Chlorpromazine (Thorazine) 50 mg PO BID [facility]; Protocol Last Admin: 12/01/18 10:41 Dose: 50 mg Chlorpromazine (Thorazine) 50 mg PO HS [facility]; Protocol Last Admin: 11/30/18 21:35 Dose: 50 mg Clopidogrel Bisulfate (Plavix) 75 mg PO DAILY [facility] Last Admin: 12/01/18 10:41 Dose: 75 mg Dextrose (Dextrose 50% Inj) 0 ml IV STAT PRN; Protocol PRN Reason: Hypoglycemia Protocol Divalproex Sodium (Depakofiordaliza Dr(*Bid*)) 500 mg PO BID [facility] Last Admin: 12/01/18 10:38 Dose: 500 mg Famotidine (Pepcid) 20 mg PO Q12 [facility] Last Admin: 12/01/18 10:40 Dose: 20 mg Insulin Detemir (Levemir) 10 unit SC HS [facility] Last Admin: 11/30/18 21:35 Dose: 10 units Insulin Human Regular (Humulin R) 0 units SC ACHS [facility]; Protocol Last Admin: 12/01/18 12:38 Dose: 1 unit Lorazepam (Ativan) 2 mg IVP Q6H PRN; Protocol PRN Reason: Agitation Last Admin: 11/29/18 20:30 Dose: 2 mg Metoprolol Tartrate (Lopressor) 25 mg PO BRKDIN [facility] Last Admin: 12/01/18 07:39 Dose: 25 mg Nicotine (Nicoderm Cq) 1 patch TD DAILY [facility] Last Admin: 12/01/18 10:40 Dose: 1 patch Zolpidem Tartrate (Ambien) 10 mg PO HS [facility]; Protocol Last Admin: 11/30/18 21:34 Dose: 10 mg - Labs Labs: 12/01/18 06:00 12/01/18 06:00 PT 12.7 SECONDS (9.4-12.5) H 11/02/18 13:38 INR 1.12 11/02/18 13:38 APTT 39.3 Seconds (26.9-38.3) H 11/02/18 13:38 - Constitutional Appears: Chronically Ill - Head Exam Head Exam: NORMAL INSPECTION - Respiratory Exam Respiratory Exam: Decreased Breath Sounds - Cardiovascular Exam Cardiovascular Exam: +S1, +S2 - GI/Abdominal Exam GI & Abdominal Exam: Soft. absent: Tenderness Assessment and Plan - Assessment and Plan (Free Text) Plan: Assessment S/P sepsis due to Methicillin-resistant Staph aureus bacteremia in this patient with right parietal and temporal lobe infarct with hemorrhagic conversion; no evidence of endocarditis on CARLY done in this patient with right upper arm cellulitis CVA DM HTN dyslipidemia depression significant smoking Plan completed course of IV Vancomycin - continue to monitor off antibiotics since he is at risk for hospital-acquired infections
--- NOTE | 2018-12-01 14:42 | CP.PCM.PN ---
<Karoline Zambrano - Last Filed: 12/01/18 14:37> Subjective - Date & Time of Evaluation Date of Evaluation: 12/01/18 Time of Evaluation: 14:38 - Subjective Subjective: Karoline Zambrano, PGY-1, Internal medicine progress note for Dr. Santana Patient was seen and evaluated at bedside. Patient had no acute overnight events. Patient denied any current symptoms. 12-point ROS was unreliable due to patient's somnolent and mental status today. Objective - Vital Signs/Intake and Output Vital Signs (last 24 hours): Temp Pulse Resp BP Pulse Ox 97.8 F 84 18 134/89 98 12/01/18 06:00 12/01/18 07:39 12/01/18 06:00 12/01/18 07:39 12/01/18 06:00 Intake and Output: 12/01/18 12/01/18 06:59 18:59 Output Total 0 Balance 0 - Medications Medications: Current Medications Acetaminophen (Tylenol 325mg Tab) 650 mg PO Q6H PRN PRN Reason: Pain, moderate (4-7) Last Admin: 11/30/18 21:39 Dose: 650 mg Aspirin (Aspirin Chewable) 81 mg PO DAILY [facility] Last Admin: 12/01/18 10:38 Dose: 81 mg Atorvastatin Calcium (Lipitor) 40 mg PO DIN [facility] Last Admin: 11/30/18 17:36 Dose: 40 mg Chlorpromazine (Thorazine) 50 mg PO BID [facility]; Protocol Last Admin: 12/01/18 10:41 Dose: 50 mg Chlorpromazine (Thorazine) 50 mg PO HS [facility]; Protocol Last Admin: 11/30/18 21:35 Dose: 50 mg Clopidogrel Bisulfate (Plavix) 75 mg PO DAILY [facility] Last Admin: 12/01/18 10:41 Dose: 75 mg Dextrose (Dextrose 50% Inj) 0 ml IV STAT PRN; Protocol PRN Reason: Hypoglycemia Protocol Divalproex Sodium (Depakote Dr(*Bid*)) 500 mg PO BID [facility] Last Admin: 12/01/18 10:38 Dose: 500 mg Famotidine (Pepcid) 20 mg PO Q12 [facility] Last Admin: 12/01/18 10:40 Dose: 20 mg Insulin Detemir (Levemir) 10 unit SC HS [facility] Last Admin: 11/30/18 21:35 Dose: 10 units Insulin Human Regular (Humulin R) 0 units SC ACHS [facility]; Protocol Last Admin: 12/01/18 12:38 Dose: 1 unit Lorazepam (Ativan) 2 mg IVP Q6H PRN; Protocol PRN Reason: Agitation Last Admin: 11/29/18 20:30 Dose: 2 mg Metoprolol Tartrate (Lopressor) 25 mg PO BRKDIN [facility] Last Admin: 12/01/18 07:39 Dose: 25 mg Nicotine (Nicoderm Cq) 1 patch TD DAILY [facility] Last Admin: 12/01/18 10:40 Dose: 1 patch Zolpidem Tartrate (Ambien) 10 mg PO HS [facility]; Protocol Last Admin: 11/30/18 21:34 Dose: 10 mg - Labs Labs: 12/01/18 06:00 12/01/18 06:00 PT 12.7 SECONDS (9.4-12.5) H 11/02/18 13:38 INR 1.12 11/02/18 13:38 APTT 39.3 Seconds (26.9-38.3) H 11/02/18 13:38 - Constitutional Appears: Well, Non-toxic, No Acute Distress - Head Exam Head Exam: ATRAUMATIC, NORMAL INSPECTION, NORMOCEPHALIC - Eye Exam Eye Exam: EOMI, PERRL - Neck Exam Neck Exam: Full ROM - Respiratory Exam Respiratory Exam: Clear to Ausculation Bilateral, NORMAL BREATHING PATTERN - Cardiovascular Exam Cardiovascular Exam: REGULAR RHYTHM, RRR - GI/Abdominal Exam GI & Abdominal Exam: Soft, Normal Bowel Sounds. absent: Tenderness - Extremities Exam Additional comments: left arm contracted, left leg +4/5 strength testing - Neurological Exam Neurological Exam: Alert, Awake, CN II-XII Intact, Oriented x3 - Skin Skin Exam: Dry, Intact Assessment and Plan - Assessment and Plan (Free Text) Assessment: 53 year old male with past medical history of hypertension, diabetes mellitus type II, ischemic stroke (left sided paralysis), hyperlipidemia, and metal strapnal in left eye that was removed presents with right temporal and frontal parietal ischemic infarct with hemorrhagic component confirmed by MRI. Patient was treated in ICU with residual left sided weakness. Patient had Staph Aureus in blood culture. No evidence of endocarditis on CARLY with right upper arm cellulitis. Repeat blood culture has been negative. As per ID, patient has finished 2 weeks of antibiotics for MRSA bacteremia. Midline in place. Plan: Staph Aureus Bacteremia -Blood culture on 11/13: MRSA. Repeat blood culture from 11/14 shows no growth for 5 days. -Procal: 0.09 -HIV negative -CARLY showed no evidence of valve vegetation on this admission -As per ID, patient has finished 2 weeks of antibiotics. No antibiotics needed upon discharge to [facility] Hemorrhagic Stroke -Head MRI 11/01: right temporal and frontal parietal ischemic infarct with hem orrhagic component. -Head and neck CT on 11/02: Critical stenosis origin R ICA. Greater than 75% gustavo nosis origin L ICA. Mod-severe multifocal stenosis R ICA cavernous. No sign of stenosis L cavernous and intracranial ICA. Slight increase in stenosis of R M1 MCA. -Head CT 11/03: No change in large MCA distribution infarct, No evidence of midline shift. -Head CT 11/05: No acute intracranial hemorrhage. Re-demonstration of large chronic R MCA territory infarct -APA workup negative -Continue with aspirin, statin, and plavix. -Aspiration, fall, and seizure precautions -HOB at 30 degrees -Neuro checks Q4 History of seizures -Continue with depakote Hypertension -Continue Lopressor 25 mg daily Hyperlipidemia -Elevated triglycerides on lipid panel -Continue with lipitor 40 mg daily Delirium-improving -Continue with thorazine. Diabetes Mellitus Type II -SSI and levemir 10 U HS -Accuchecks ACHS Tobacco Abuse -Nicotine patch daily Insomnia -Continue with ambien GI prophylaxis: pepcid 20 mg Q12 DVT prophylaxis: SCD Disposition: Patient is medically clear for discharge. However, case management and social work are trying to find new subacute rehabilitation for patient at this time. Patient plan discussed with attending. <Sam Santana - Last Filed: 12/01/18 16:15> Objective - Vital Signs/Intake and Output Vital Signs (last 24 hours): Temp Pulse Resp BP Pulse Ox 97.8 F 84 18 134/89 98 12/01/18 06:00 12/01/18 07:39 12/01/18 06:00 12/01/18 07:39 12/01/18 06:00 Intake and Output: 12/01/18 12/01/18 06:59 18:59 Output Total 0 Balance 0 - Medications Medications: Current Medications Acetaminophen (Tylenol 325mg Tab) 650 mg PO Q6H PRN PRN Reason: Pain, moderate (4-7) Last Admin: 11/30/18 21:39 Dose: 650 mg Aspirin (Aspirin Chewable) 81 mg PO DAILY [facility] Last Admin: 12/01/18 10:38 Dose: 81 mg Atorvastatin Calcium (Lipitor) 40 mg PO DIN [facility] Last Admin: 11/30/18 17:36 Dose: 40 mg Chlorpromazine (Thorazine) 50 mg PO BID [facility]; Protocol Last Admin: 12/01/18 10:41 Dose: 50 mg Chlorpromazine (Thorazine) 50 mg PO HS [facility]; Protocol Last Admin: 11/30/18 21:35 Dose: 50 mg Clopidogrel Bisulfate (Plavix) 75 mg PO DAILY [facility] Last Admin: 12/01/18 10:41 Dose: 75 mg Dextrose (Dextrose 50% Inj) 0 ml IV STAT PRN; Protocol PRN Reason: Hypoglycemia Protocol Divalproex Sodium (Depakote Dr(*Bid*)) 500 mg PO BID [facility] Last Admin: 12/01/18 10:38 Dose: 500 mg Famotidine (Pepcid) 20 mg PO Q12 [facility] Last Admin: 12/01/18 10:40 Dose: 20 mg Insulin Detemir (Levemir) 10 unit SC HS [facility] Last Admin: 11/30/18 21:35 Dose: 10 units Insulin Human Regular (Humulin R) 0 units SC ACHS [facility]; Protocol Last Admin: 12/01/18 12:38 Dose: 1 unit Lorazepam (Ativan) 2 mg IVP Q6H PRN; Protocol PRN Reason: Agitation Last Admin: 11/29/18 20:30 Dose: 2 mg Metoprolol Tartrate (Lopressor) 25 mg PO BRKDIN [facility] Last Admin: 12/01/18 07:39 Dose: 25 mg Nicotine (Nicoderm Cq) 1 patch TD DAILY [facility] Last Admin: 12/01/18 10:40 Dose: 1 patch Zolpidem Tartrate (Ambien) 10 mg PO HS [facility]; Protocol Last Admin: 11/30/18 21:34 Dose: 10 mg - Labs Labs: 12/01/18 06:00 12/01/18 06:00 PT 12.7 SECONDS (9.4-12.5) H 11/02/18 13:38 INR 1.12 11/02/18 13:38 APTT 39.3 Seconds (26.9-38.3) H 11/02/18 13:38 Attending/Attestation - Attestation I have personally seen and examined this patient.: Yes I have fully participated in the care of the patient.: Yes I have reviewed all pertinent clinical information, including history, physical exam and plan: Yes Notes (Text): 12/01/18 16:13 Patient was seen and examined with behavioral medical director. 53 year old male with past medical history of hypertension, diabetes, and CVA (07/2018) who was initially admitted under psychiatric unit for depression. He was transferred to medical floor for +MRI findings showing subacute to chronic ischemic infarction involving the right frontal, temporal and parietal lobes with accompanying hemorrhagic component. CTA head/neck showed critical stenosis of right ICA, >75% stenosis of left ICA and moderate to severe multifocal stenosis of the cavernous and supraclinoid segments of right ICA. He was initially transferred to ICU for close ICU monitoring. Patient was evaluated by Neurosurgery and felt these MRI finding are chronic, no acute intervention is needed. Patient is on aspirin, plavix and statin. Vascular surgery recommended outpatient follow up. Psychiatry is following. Patient spiked temp on 11/13, set of blood culture grew MRSA.CARLY was negative for vegetations.He is SP antibiotics for MRSA bacteremia. Last day was 11/28/18. Continue with fall precaution. PT is following; d/c planning to rehab , awaiting placement. Patient has been off 1:1 for 3 days now. Prognosis is guarded.
[2018-12-01] MEDS: Insulin Detemir 100 units/ml Vial (Levemir) SC SCH (21:25)
[2018-12-02 06:37] LABS: BASO # 0.04 K/mm3 (0.0-2.0); BASO % 0.5 % (0.0-3.0); EOS # 0.3 (0.0-0.7); EOS % 4.2 % (1.5-5.0); HEMOGLOBIN 11.5 g/dL (14.0-18.0); LYMPH # 2.6 (1.2-3.4); LYMPH % 32.2 % (22.0-35.0); MEAN CELL VOLUME 85.9 fl (80.0-105.0); MEAN CORPUSCULAR HEMOGLOBIN 26.6 pg (25.0-35.0); MEAN PLATELET VOLUME 10.5 fl (7.0-11.0); MONO # 0.7 (0.1-0.6); MONO % 8.6 % (1.0-6.0); RBC 4.32 10^6/uL (3.5-6.1); RED CELL DISTRIBUTION WIDTH 14.2 % (11.5-14.5)
[2018-12-02 07:11] LABS: ALB/GLOB RATIO 1.2 (1.1-1.8); ALBUMIN 3.9 g/dL (3.0-4.8); ALT/SGPT 22 U/L (7-56); AST/SGOT 31 U/L (17-59); BLOOD UREA NITROGEN 21 mg/dL (7-21); CALCIUM 9.6 mg/dL (8.4-10.5); GFR NON-AFRICAN AMERICAN > 60
[2018-12-02] MEDS: Insulin Regular 1 UNITS/0.01 ML ML SC SCH (08:17)
[2018-12-02 08:23] VITALS: BP 151/77; PULSE 79; RESP 20; TEMP 97.7
[2018-12-02] MEDS: Divalproex 500 mg DR(BID formulation) PO SCH (10:04)
--- NOTE | 2018-12-02 14:00 | CP.PCM.PN ---
Subjective - Date & Time of Evaluation Date of Evaluation: 12/02/18 Time of Evaluation: 10:10 - Subjective Subjective: Afebrile, comfortable. Objective - Vital Signs/Intake and Output Vital Signs (last 24 hours): Temp Pulse Resp BP Pulse Ox 97.8 F 84 18 134/89 98 12/01/18 06:00 12/01/18 07:39 12/01/18 06:00 12/01/18 07:39 12/01/18 06:00 Intake and Output: 12/01/18 12/01/18 06:59 18:59 Output Total 0 Balance 0 - Medications Medications: Current Medications Acetaminophen (Tylenol 325mg Tab) 650 mg PO Q6H PRN PRN Reason: Pain, moderate (4-7) Last Admin: 11/30/18 21:39 Dose: 650 mg Aspirin (Aspirin Chewable) 81 mg PO DAILY [facility] Last Admin: 12/01/18 10:38 Dose: 81 mg Atorvastatin Calcium (Lipitor) 40 mg PO DIN [facility] Last Admin: 11/30/18 17:36 Dose: 40 mg Chlorpromazine (Thorazine) 50 mg PO BID [facility]; Protocol Last Admin: 12/01/18 10:41 Dose: 50 mg Chlorpromazine (Thorazine) 50 mg PO HS [facility]; Protocol Last Admin: 11/30/18 21:35 Dose: 50 mg Clopidogrel Bisulfate (Plavix) 75 mg PO DAILY [facility] Last Admin: 12/01/18 10:41 Dose: 75 mg Dextrose (Dextrose 50% Inj) 0 ml IV STAT PRN; Protocol PRN Reason: Hypoglycemia Protocol Divalproex Sodium (Depkieran Dr(*Bid*)) 500 mg PO BID [facility] Last Admin: 12/01/18 10:38 Dose: 500 mg Famotidine (Pepcid) 20 mg PO Q12 [facility] Last Admin: 12/01/18 10:40 Dose: 20 mg Insulin Detemir (Levemir) 10 unit SC HS [facility] Last Admin: 11/30/18 21:35 Dose: 10 units Insulin Human Regular (Humulin R) 0 units SC ACHS [facility]; Protocol Last Admin: 12/01/18 12:38 Dose: 1 unit Lorazepam (Ativan) 2 mg IVP Q6H PRN; Protocol PRN Reason: Agitation Last Admin: 11/29/18 20:30 Dose: 2 mg Metoprolol Tartrate (Lopressor) 25 mg PO BRKDIN [facility] Last Admin: 12/01/18 07:39 Dose: 25 mg Nicotine (Nicoderm Cq) 1 patch TD DAILY [facility] Last Admin: 12/01/18 10:40 Dose: 1 patch Zolpidem Tartrate (Ambien) 10 mg PO HS [facility]; Protocol Last Admin: 11/30/18 21:34 Dose: 10 mg - Labs Labs: 12/01/18 06:00 12/01/18 06:00 PT 12.7 SECONDS (9.4-12.5) H 11/02/18 13:38 INR 1.12 11/02/18 13:38 APTT 39.3 Seconds (26.9-38.3) H 11/02/18 13:38 - Constitutional Appears: Non-toxic, Chronically Ill - Head Exam Head Exam: NORMAL INSPECTION - Respiratory Exam Respiratory Exam: Decreased Breath Sounds - Cardiovascular Exam Cardiovascular Exam: +S1, +S2 - GI/Abdominal Exam GI & Abdominal Exam: Soft. absent: Tenderness Assessment and Plan - Assessment and Plan (Free Text) Plan: Assessment S/P sepsis due to Methicillin-resistant Staph aureus bacteremia in this patient with right parietal and temporal lobe infarct with hemorrhagic conversion; no evidence of endocarditis on CARLY done in this patient with right upper arm cellulitis CVA DM HTN dyslipidemia depression significant smoking Plan completed course of IV Vancomycin - continue to monitor off antibiotics since he is at risk for healthcare-associated infections
--- NOTE | 2018-12-02 17:09 | CP.PCM.DIS ---
<Karoline Zambrano - Last Filed: 12/02/18 17:06> Provider - Provider Date of Admission: 11/02/18 14:43 Attending physician: Navi Conway MD Primary care physician: Dr. Hyman Consults: 11/02/18 16:15 Neurology Consult Routine Comment: Consulting Provider: Dejan Agudelo Consulting Physician: Dejan Agudelo Reason for Consult: Hemorrhagic stroke Physician Consult Routine Comment: Consulting Provider: Eliseo Martinez Consulting Physician: Eliseo Martinez Reason for Consult: Hemorrhagic stroke Psychiatry Consult Routine Comment: Consulting Provider: Savanah Galarza Consulting Physician: Savanah Galarza Reason for Consult: Depression from stroke 11/02/18 22:47 Social Work Referral Routine Comment: ana m score > 8 Physician Instructions: Reason For Exam: ana m score > 8 11/03/18 13:37 Physician Consult Routine Comment: Consulting Provider: Teo Patel Consulting Physician: Teo Patel Reason for Consult: ICU consult for stroke with edema 11/03/18 13:38 Neurointerventional consult Routine Comment: Consulting Provider: Lianet Cruz Consulting Physician: Lianet Cruz Reason for Consult: critical stenosis of ICA 11/03/18 16:37 Nursing Referral for Wound Care Routine Comment: Physician Instructions: Reason For Exam: bed bound 11/13/18 06:12 Infectious Disease Consult Routine Comment: Consulting Provider: Chandler Cook Consulting Physician: Chandler Cook Reason for Consult: fever, r/o sepsis 11/15/18 16:13 Cardiology Consult Routine Comment: Consulting Provider: Aniceto Barger Consulting Physician: Aniceto Barger Reason for Consult: CARLY Time Spent in preparation of Discharge (in minutes): 60 Diagnosis - Discharge Diagnosis (1) Depression Status: Acute (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 Status: Acute Priority: High (3) Stroke Status: Acute (4) Sepsis Status: Acute Hospital Course - Lab Results Lab Results: Micro Results 11/24/18 09:25 Naris MRSA Culture (Admit) - Final MRSA NOT DETECTED 11/14/18 10:15 Blood-Venous Blood Culture - Final NO GROWTH AFTER 5 DAYS 11/14/18 10:15 Blood-Venous Gram Stain - Final TEST NOT PERFORMED 11/14/18 10:40 Blood-Venous Blood Culture - Final NO GROWTH AFTER 5 DAYS 11/14/18 10:40 Blood-Venous Gram Stain - Final TEST NOT PERFORMED 11/13/18 02:20 Blood Blood Culture - Final Methicillin Resistant S Aureus 11/13/18 02:20 Blood Gram Stain - Final 11/13/18 02:50 Blood Blood Culture - Final Methicillin Resistant S Aureus 11/13/18 02:50 Blood Gram Stain - Final 11/13/18 04:20 Urine,Catheterized Urine Culture - Final No Growth (<1,000 CFU/ML) 11/10/18 17:44 Stool C. difficile Antigen & Toxins A,B - Final 11/03/18 16:45 Nose MRSA Culture (Admit) - Final MRSA DETECTED Most Recent Lab Values WBC 8.0 10^3/uL (4.5-11.0) 12/02/18 06:00 RBC 4.32 10^6/uL (3.5-6.1) 12/02/18 06:00 Hgb 11.5 g/dL (14.0-18.0) L 12/02/18 06:00 Hct 37.1 % (42.0-52.0) L 12/02/18 06:00 MCV 85.9 fl (80.0-105.0) 12/02/18 06:00 MCH 26.6 pg (25.0-35.0) 12/02/18 06:00 MCHC 31.0 g/dl (31.0-37.0) 12/02/18 06:00 RDW 14.2 % (11.5-14.5) 12/02/18 06:00 Plt Count 342 10^3/uL (120.0-450.0) 12/02/18 06:00 MPV 10.5 fl (7.0-11.0) 12/02/18 06:00 Neut % (Auto) 54.5 % (50.0-68.0) 12/02/18 06:00 Lymph % (Auto) 32.2 % (22.0-35.0) 12/02/18 06:00 [place] % (Auto) 8.6 % (1.0-6.0) H 12/02/18 06:00 Eos % (Auto) 4.2 % (1.5-5.0) 12/02/18 06:00 Baso % (Auto) 0.5 % (0.0-3.0) 12/02/18 06:00 Lymph # (Auto) 2.6 (1.2-3.4) 12/02/18 06:00 [place] # (Auto) 0.7 (0.1-0.6) H 12/02/18 06:00 Eos # (Auto) 0.3 (0.0-0.7) 12/02/18 06:00 Baso # (Auto) 0.04 K/mm3 (0.0-2.0) 12/02/18 06:00 Absolute Neuts (auto) 4.37 (1.4-6.5) 12/02/18 06:00 ESR 20 mm/hr (0.00-15.0) H 11/27/18 07:40 PT 12.7 SECONDS (9.4-12.5) H 11/02/18 13:38 INR 1.12 11/02/18 13:38 APTT 39.3 Seconds (26.9-38.3) H 11/02/18 13:38 Sodium 144 mmol/L (132-148) 12/02/18 06:00 Potassium 3.9 mmol/L (3.6-5.0) 12/02/18 06:00 Chloride 107 mmol/L (98-107) 12/02/18 06:00 Carbon Dioxide 28 mmol/L (21-33) 12/02/18 06:00 Anion Gap 13 (10-20) 12/02/18 06:00 BUN 21 mg/dL (7-21) 12/02/18 06:00 Creatinine 0.8 mg/dl (0.8-1.5) 12/02/18 06:00 Est GFR ( Amer) > 60 12/02/18 06:00 Est GFR (Non-Af Amer) > 60 12/02/18 06:00 POC Glucose (mg/dL) 157 mg/dL (65-110) H 12/02/18 11:18 Random Glucose 106 mg/dL (70-110) 12/02/18 06:00 Lactic Acid 0.7 mmol/L (0.7-2.1) 11/13/18 05:50 Calcium 9.6 mg/dL (8.4-10.5) 12/02/18 06:00 Total Bilirubin 0.3 mg/dL (0.2-1.3) 12/02/18 06:00 AST 31 U/L (17-59) 12/02/18 06:00 ALT 22 U/L (7-56) 12/02/18 06:00 Alkaline Phosphatase 69 U/L (38-126) 12/02/18 06:00 Total Creatine Kinase 82 U/L (35-230) 11/23/18 06:20 CK-MB (CK-2) 1.1 ng/mL (0.0-3.6) 11/14/18 10:40 CK-MB (CK-2) % Cancelled 11/14/18 10:40 Troponin I < 0.01 ng/mL 11/02/18 13:38 C-Reactive Protein 9.40 mg/L (0.0-9.9) 11/27/18 07:40 Total Protein 7.2 g/dL (5.8-8.3) 12/02/18 06:00 Albumin 3.9 g/dL (3.0-4.8) 12/02/18 06:00 Globulin 3.3 gm/dL 12/02/18 06:00 Albumin/Globulin Ratio 1.2 (1.1-1.8) 12/02/18 06:00 Triglycerides 180 mg/dL (35-160) H 11/03/18 07:10 Cholesterol 164 mg/dL (130-200) 11/03/18 07:10 LDL Cholesterol Direct 71 mg/dL (0-129) 11/03/18 07:10 HDL Cholesterol 35 mg/dL (29-60) 11/03/18 07:10 Procalcitonin 0.09 NG/ML (0.19-0.49) L 11/13/18 02:20 Urine Color Yellow (YELLOW) 11/13/18 04:20 Urine Appearance Clear (CLEAR) 11/13/18 04:20 Urine pH 6.0 (4.7-8.0) 11/13/18 04:20 Ur Specific [place] 1.020 (1.005-1.035) 11/13/18 04:20 Urine Protein Negative mg/dL (<30 mg/dL) 11/13/18 04:20 Urine Glucose (UA) 100 mg/dL (NEGATIVE) H 11/13/18 04:20 Urine Ketones 15 mg/dL (NEGATIVE) H 11/13/18 04:20 Urine Blood Negative (NEGATIVE) 11/13/18 04:20 Urine Nitrate Negative (NEGATIVE) 11/13/18 04:20 Urine Bilirubin Negative (NEGATIVE) 11/13/18 04:20 Urine Urobilinogen 0.2 E.U./dL (<1 E.U./dL) 11/13/18 04:20 Ur Leukocyte Esterase Negative Ed/uL (NEGATIVE) 11/13/18 04:20 Vancomycin Trough 18.4 ug/mL (5.0-10.0) H* 11/27/18 09:00 Valproic Acid 88 ug/mL (50.0-100.0) 12/01/18 06:00 [id number] Ab 71 BELLA (<=20) H 11/17/18 13:10 Beta-2 GPI IgG Ab <9 SGU (<=20) 11/17/18 13:10 Beta-2 GPI IgM Ab <9 SMU (<=20) 11/17/18 13:10 Phosphatidylserine IgG <10 U/mL (<10) 11/17/18 13:10 Phosphatidylserine IgA <20 U/mL (<20) 11/17/18 13:10 Phosphatidylserine IgM <25 U/mL (<25) 11/17/18 13:10 Anti-Phospholipid Intrp see note 11/17/18 13:10 Anti-Cardiolipin IgG Ab <14 GPL (<=14) 11/17/18 13:10 Anti-Cardiolipin IgA Ab <11 APL (<=11) 11/17/18 13:10 Anti-Cardiolipin IgM Ab <12 MPL (<=12) 11/17/18 13:10 HIV 1&2 Ag/Ab, 4th Gen Nonreactive (Nonreactive) 11/14/18 06:00 - Hospital Course Hospital Course: Karoline Zambrano, PGY-1, Internal Medicine Discharge Summary for Dr. Conway 53 year old male with past medical history of hypertension, diabetes mellitus type II, hyperlipidemia, ischemic CVA in 07/22 presented from the psych floor for hemorrhagic stroke on 11/02. Patient was admitted to psychiatry due to depression secondary to residual left sided deficit from ischemic CVA in 07/22. Patient was then noted to have new visual hallucinations status post fall and was assessed by neuro team who ordered MRI of the brain and hemorrhagic stroke of right temporal and frontal parietal with ischemic component. Aspirin, plavix, and lovenox were held. Statin was started. CTA on 11/02 showed critical stenosis of the right ICA. Moderate to severe multifocal stenosis was seen of the right ICA cavernous and supreclinoid segment. No significant stenosis of the left cavernous and intracranial ICA was seen. Upon multiple head CTs in the subseq uent days, chronic right MCA infarct was seen in addition to minor chronic periventricular white matter ischemic changes in the left cerebral hemisphere with wallerian degeration right cerebral peduncle and upper daria. Chronic appearing small left lateral basal ganglia lacunar type infarct was seen. Associated ex vacuo dilatation of the right lateral ventricular due to the aforementioned infarct. Aspirin and plavix were subsequently started after noted hemorrhage was sure to have stopped. Blood cultures from 11/13 showed gram + cocci eventually showing MRSA bacteremia. Patient was treated with daptomycin and cefepime which was deescalated to cefepime for 14 days. Patient had [facility]. CARLY was performed on 11/17 to rule out endocarditis and endocarditis was ruled out at that time. Patient also had code star during this admission and was follow up with appropriate imaging and found not to have any acute fractures. Patient has had multiple behavioral issues with visual hallucinations. He has had to be on 1:1 multiple times and had delirium ranging from AAOx1 to AAOx3. He was managed with multiple anti-psychotics including geodon and seroquel and benzodiazepines such as ativan which was eventually switched to thorazine with improvement in behavior. In addition, patient's diabetes mellitus was initially controlled with a sliding scale but levemir 10 U was added for improved glycemic control. Patient was initially accepted at [facility] but patient lost his seat due to patient being on contact precaution from the MRSA bacteremia. As a result, though patient was medically cleared around 2 weeks ago, patient continued his stay in the hospital pending acceptence at [facility]. Patient was finally accepted at [facility]. Patient was medically stable and ready for discharge. Patient was told to follow up with PCP in 7-14 days post discharge. Patient was told to take all medications as prescribed at [facility]. Patient was told to return to the emergency department if he had any new or concerning symptoms. This is a brief summary of the events that occurred at the hospital. For more information, please refer to the hospital documentation. - Date & Time of H&P Date of H&P: 11/02/18 Time of H&P: 16:22 Discharge Exam - Head Exam Head Exam: NORMAL INSPECTION - Eye Exam Eye Exam: EOMI, PERRL - Respiratory Exam Respiratory Exam: Clear to PA & Lateral, NORMAL BREATHING PATTERN - Cardiovascular Exam Cardiovascular Exam: REGULAR RHYTHM, RRR - GI/Abdominal Exam GI & Abdominal Exam: Normal Bowel Sounds, Soft. absent: Tenderness - Extremities Exam Additional comments: left arm contracted, left lower extremity 0-1/5 strength test - Neurological Exam Neurological exam: Alert, CN II-XII Intact Additional comments: somnolent at bedside - Skin Skin Exam: Dry, Intact Discharge Plan - Discharge Medications Prescriptions: chlorproMAZINE [Thorazine] 50 mg PO HS 30 Days #30 tab chlorproMAZINE [Thorazine] 50 mg PO BID 30 Days #60 tab Insulin Lispro [Admelog Solostar] 100 unit SQ AC 30 Days #3 unit Metoprolol Tartrate [Lopressor] 25 mg PO BRKDIN 30 Days #30 tab Zolpidem [Ambien] 10 mg PO HS #30 tab - Follow Up Plan Condition: STABLE Disposition: REHAB FACILITY/REHAB UNIT Instructions: Stroke (DC), Quitting Smoking Additional Instructions: As per Dr. Zaragoza's office, please ask [facility] to help you make a follow up appointment with Dr. Laguerre, Medicine, and Dr. Zaragoza, Surgery, for appointment to discuss intervention to prevents future strokes. Please follow up with PCP in 7-14 days. Please take all medications at [facility] as prescribed. Please return to the emergency department if you have any new or concerning symptoms. Referrals: Don Laguerre MD [Medical Doctor] - Yves Zaragoza Jr., MD [Non-Staff] - <Navi Conway - Last Filed: 12/03/18 07:21> Provider - Provider Date of Admission: 11/02/18 14:43 Attending physician: Navi Conway MD Consults: 11/02/18 16:15 Neurology Consult Routine Comment: Consulting Provider: Dejan Agudelo Consulting Physician: Dejan Agudelo Reason for Consult: Hemorrhagic stroke Physician Consult Routine Comment: Consulting Provider: Eliseo Martinez Consulting Physician: Eliseo Martinez Reason for Consult: Hemorrhagic stroke Psychiatry Consult Routine Comment: Consulting Provider: Savanah Galarza Consulting Physician: Savanah Galazra Reason for Consult: Depression from stroke 11/02/18 22:47 Social Work Referral Routine Comment: ana m score > 8 Physician Instructions: Reason For Exam: ana m score > 8 11/03/18 13:37 Physician Consult Routine Comment: Consulting Provider: Teo Patel Consulting Physician: Teo Patel Reason for Consult: ICU consult for stroke with edema 11/03/18 13:38 Neurointerventional consult Routine Comment: Consulting Provider: Lianet Cruz Consulting Physician: Lianet Cruz Reason for Consult: critical stenosis of ICA 11/03/18 16:37 Nursing Referral for Wound Care Routine Comment: Physician Instructions: Reason For Exam: bed bound 11/13/18 06:12 Infectious Disease Consult Routine Comment: Consulting Provider: Chandler Cook Consulting Physician: Chandler Cook Reason for Consult: fever, r/o sepsis 11/15/18 16:13 Cardiology Consult Routine Comment: Consulting Provider: Aniceto Barger Consulting Physician: Aniceto Barger Reason for Consult: [facility] Course - Lab Results Lab Results: Micro Results 11/24/18 09:25 Naris MRSA Culture (Admit) - Final MRSA NOT DETECTED 11/14/18 10:15 Blood-Venous Blood Culture - Final NO GROWTH AFTER 5 DAYS 11/14/18 10:15 Blood-Venous Gram Stain - Final TEST NOT PERFORMED 11/14/18 10:40 Blood-Venous Blood Culture - Final NO GROWTH AFTER 5 DAYS 11/14/18 10:40 Blood-Venous Gram Stain - Final TEST NOT PERFORMED 11/13/18 02:20 Blood Blood Culture - Final Methicillin Resistant S Aureus 11/13/18 02:20 Blood Gram Stain - Final 11/13/18 02:50 Blood Blood Culture - Final Methicillin Resistant S Aureus 11/13/18 02:50 Blood Gram Stain - Final 11/13/18 04:20 Urine,Catheterized Urine Culture - Final No Growth (<1,000 CFU/ML) 11/10/18 17:44 Stool C. difficile Antigen & Toxins A,B - Final 11/03/18 16:45 Nose MRSA Culture (Admit) - Final MRSA DETECTED Most Recent Lab Values WBC 8.0 10^3/uL (4.5-11.0) 12/02/18 06:00 RBC 4.32 10^6/uL (3.5-6.1) 12/02/18 06:00 Hgb 11.5 g/dL (14.0-18.0) L 12/02/18 06:00 Hct 37.1 % (42.0-52.0) L 12/02/18 06:00 MCV 85.9 fl (80.0-105.0) 12/02/18 06:00 MCH 26.6 pg (25.0-35.0) 12/02/18 06:00 MCHC 31.0 g/dl (31.0-37.0) 12/02/18 06:00 RDW 14.2 % (11.5-14.5) 12/02/18 06:00 Plt Count 342 10^3/uL (120.0-450.0) 12/02/18 06:00 MPV 10.5 fl (7.0-11.0) 12/02/18 06:00 Neut % (Auto) 54.5 % (50.0-68.0) 12/02/18 06:00 Lymph % (Auto) 32.2 % (22.0-35.0) 12/02/18 06:00 [place] % (Auto) 8.6 % (1.0-6.0) H 12/02/18 06:00 Eos % (Auto) 4.2 % (1.5-5.0) 12/02/18 06:00 Baso % (Auto) 0.5 % (0.0-3.0) 12/02/18 06:00 Lymph # (Auto) 2.6 (1.2-3.4) 12/02/18 06:00 [place] # (Auto) 0.7 (0.1-0.6) H 12/02/18 06:00 Eos # (Auto) 0.3 (0.0-0.7) 12/02/18 06:00 Baso # (Auto) 0.04 K/mm3 (0.0-2.0) 12/02/18 06:00 Absolute Neuts (auto) 4.37 (1.4-6.5) 12/02/18 06:00 ESR 20 mm/hr (0.00-15.0) H 11/27/18 07:40 PT 12.7 SECONDS (9.4-12.5) H 11/02/18 13:38 INR 1.12 11/02/18 13:38 APTT 39.3 Seconds (26.9-38.3) H 11/02/18 13:38 Sodium 144 mmol/L (132-148) 12/02/18 06:00 Potassium 3.9 mmol/L (3.6-5.0) 12/02/18 06:00 Chloride 107 mmol/L (98-107) 12/02/18 06:00 Carbon Dioxide 28 mmol/L (21-33) 12/02/18 06:00 Anion Gap 13 (10-20) 12/02/18 06:00 BUN 21 mg/dL (7-21) 12/02/18 06:00 Creatinine 0.8 mg/dl (0.8-1.5) 12/02/18 06:00 Est GFR ( Amer) > 60 12/02/18 06:00 Est GFR (Non-Af Amer) > 60 12/02/18 06:00 POC Glucose (mg/dL) 157 mg/dL (65-110) H 12/02/18 11:18 Random Glucose 106 mg/dL (70-110) 12/02/18 06:00 Lactic Acid 0.7 mmol/L (0.7-2.1) 11/13/18 05:50 Calcium 9.6 mg/dL (8.4-10.5) 12/02/18 06:00 Total Bilirubin 0.3 mg/dL (0.2-1.3) 12/02/18 06:00 AST 31 U/L (17-59) 12/02/18 06:00 ALT 22 U/L (7-56) 12/02/18 06:00 Alkaline Phosphatase 69 U/L (38-126) 12/02/18 06:00 Total Creatine Kinase 82 U/L (35-230) 11/23/18 06:20 CK-MB (CK-2) 1.1 ng/mL (0.0-3.6) 11/14/18 10:40 CK-MB (CK-2) % Cancelled 11/14/18 10:40 Troponin I < 0.01 ng/mL 11/02/18 13:38 C-Reactive Protein 9.40 mg/L (0.0-9.9) 11/27/18 07:40 Total Protein 7.2 g/dL (5.8-8.3) 12/02/18 06:00 Albumin 3.9 g/dL (3.0-4.8) 12/02/18 06:00 Globulin 3.3 gm/dL 12/02/18 06:00 Albumin/Globulin Ratio 1.2 (1.1-1.8) 12/02/18 06:00 Triglycerides 180 mg/dL (35-160) H 11/03/18 07:10 Cholesterol 164 mg/dL (130-200) 11/03/18 07:10 LDL Cholesterol Direct 71 mg/dL (0-129) 11/03/18 07:10 HDL Cholesterol 35 mg/dL (29-60) 11/03/18 07:10 Procalcitonin 0.09 NG/ML (0.19-0.49) L 11/13/18 02:20 Urine Color Yellow (YELLOW) 11/13/18 04:20 Urine Appearance Clear (CLEAR) 11/13/18 04:20 Urine pH 6.0 (4.7-8.0) 11/13/18 04:20 Ur Specific [place] 1.020 (1.005-1.035) 11/13/18 04:20 Urine Protein Negative mg/dL (<30 mg/dL) 11/13/18 04:20 Urine Glucose (UA) 100 mg/dL (NEGATIVE) H 11/13/18 04:20 Urine Ketones 15 mg/dL (NEGATIVE) H 11/13/18 04:20 Urine Blood Negative (NEGATIVE) 11/13/18 04:20 Urine Nitrate Negative (NEGATIVE) 11/13/18 04:20 Urine Bilirubin Negative (NEGATIVE) 11/13/18 04:20 Urine Urobilinogen 0.2 E.U./dL (<1 E.U./dL) 11/13/18 04:20 Ur Leukocyte Esterase Negative Ed/uL (NEGATIVE) 11/13/18 04:20 Vancomycin Trough 18.4 ug/mL (5.0-10.0) H* 11/27/18 09:00 Valproic Acid 88 ug/mL (50.0-100.0) 12/01/18 06:00 [id number] Ab 71 BELLA (<=20) H 11/17/18 13:10 Beta-2 GPI IgG Ab <9 SGU (<=20) 11/17/18 13:10 Beta-2 GPI IgM Ab <9 SMU (<=20) 11/17/18 13:10 Phosphatidylserine IgG <10 U/mL (<10) 11/17/18 13:10 Phosphatidylserine IgA <20 U/mL (<20) 11/17/18 13:10 Phosphatidylserine IgM <25 U/mL (<25) 11/17/18 13:10 Anti-Phospholipid Intrp see note 11/17/18 13:10 Anti-Cardiolipin IgG Ab <14 GPL (<=14) 11/17/18 13:10 Anti-Cardiolipin IgA Ab <11 APL (<=11) 11/17/18 13:10 Anti-Cardiolipin IgM Ab <12 MPL (<=12) 11/17/18 13:10 HIV 1&2 Ag/Ab, 4th Gen Nonreactive (Nonreactive) 11/14/18 06:00 Attending/Attestation - Attestation I have personally seen and examined this patient.: Yes I have fully participated in the care of the patient.: Yes I have reviewed all pertinent clinical information, including history, physical exam and plan: Yes Notes (Text): 12/02/18 Patient is discharged to [facility]. Continue with aspirin, plavix and statin. Follow up with neurology, vascular surgery. Follow up with psychiatrist. Continue with insulin ss. Navi Conway MD Hospitalist.
--- NOTE | 2018-12-02 18:51 | PN ---
DATE: 12/02/2018 SUBJECTIVE: The patient is 53-year-old male with not known previous psychiatric history. The patient had multiple medical issues including diabetes, hypertension. The patient had history of CVAs. The patient initially was admitted to the psychiatric inpatient unit for depressive symptoms and possible suicidal ideation, which were related to the stroke. Earlier while being in the psychiatric inpatient unit the patient had another stroke and required medical transfer. During the medical stay, the patient developed sepsis which required IV antibiotics for 2 weeks. The patient was seen by psychiatric team every other day. At present moment, the patient is on Depakote 500 mg twice a day. Also the patient is on Ambien as well as Thorazine for psychosis. Labs reviewed. Most recent was from today. Hemoglobin and hematocrit is 11.5 and 37.1. Microbiology reviewed. Vital signs reviewed. Blood pressure is elevated at 151/77, pulse is 79, temperature 97.7. This insurance underwriter had collateral information from nursing staff. The patient does not exhibit any aggressive or agitated behavior, compliant with the medications. As per social sciences research scientist, the patient was scheduled for transfer to subacute rehab and transfer is going to be today. IMPRESSION: The patient was in delirium stage, rule out mood disorder due to general medical condition, anxiety disorder due to general medical condition and psychosis due to general medical condition. PLAN: The patient should continue on Thorazine and Depakote and Ambien. The patient needs to be seen by psychiatrist in subacute rehab. At present moment the patient pose no imminent danger to self or others. The patient has transient feelings of hopelessness and suicidal ideation, but the patient never act on it. Should you have any questions give me a call back. This insurance underwriter will sign off. Should you have any questions, call us back. Savanah Galarza MD
== END 2018-12-02 18:38 | DRG 533 ==
LOC: ED 12:04 → ERH 14:43 → 2RSO 23:10 → CCU 11-03 15:45 → 3RNO 11-05 23:20
PROVIDERS: ADMIT Hospitalist; ATTEND Internal Medicine
PROC: B246ZZ4 Ultrasonography of Right and Left Heart, Transesophageal (ICD-10-PCS; principal; 2018-11-17 10:00)
DX: I61.9 Nontraumatic intracerebral hemorrhage, unspecified (principal); A41.02 Sepsis due to Methicillin resistant Staphylococcus aureus; F32.3 Major depressive disorder, single episode, severe with psychotic features; E11.51 Type 2 diabetes mellitus with diabetic peripheral angiopathy without gangrene; F06.30 Mood disorder due to known physiological condition, unspecified; L03.113 Cellulitis of right upper limb; I35.1 Nonrheumatic aortic (valve) insufficiency; F06.4 Anxiety disorder due to known physiological condition; I65.23 Occlusion and stenosis of bilateral carotid arteries; G93.6 Cerebral edema; R29.713 NIHSS score 13; I10 Essential (primary) hypertension; R45.851 Suicidal ideations; F43.23 Adjustment disorder with mixed anxiety and depressed mood; E11.65 Type 2 diabetes mellitus with hyperglycemia; E78.5 Hyperlipidemia, unspecified; G40.909 Epilepsy, unspecified, not intractable, without status epilepticus; F05 Delirium due to known physiological condition; G47.00 Insomnia, unspecified; H54.62 Unqualified visual loss, left eye, normal vision right eye; I69.398 Other sequelae of cerebral infarction; I69.354 Hemiplegia and hemiparesis following cerebral infarction affecting left non-dominant side; Z79.4 Long term (current) use of insulin; Z87.891 Personal history of nicotine dependence; Z75.1 Person awaiting admission to adequate facility elsewhere; Z79.82 Long term (current) use of aspirin; Z79.02 Long term (current) use of antithrombotics/antiplatelets